=== PATIENT | female | born 1945 | race Caucasian/White ===

== ENCOUNTER → 2016-05-09 | Outpatient (CLI) | payer MEDICARE ==
[2016-04-17 17:01] VITALS: BP 152/69
[~2016-05-09] MED LIST: AMIT25TA PO; AMLO2.5T2 PO; AMOX50TA PO; ASPI81TA50 PO; ATOR40TA PO; BACL10TA PO; BISA5TAB4 PO; BUSP15TA PO; CARB1TAB22 PO; CARV12.5 PO; CHOL500016 PO; CLOP75TA PO; CYCL5TAB PO; DOCU-27 PO; DOCU100C5 PO; DULO60CA6 PO; ESOM40CA PO; ESTR1TAB15 PO; FERR250T PO; FOLI1TAB16 PO; LEVE100020 PO; LEVO125T5 PO; LIDO700A4 TP; LINA5TAB PO; LORA0.5P MC; LORA0.5T PO; LUBI24CA5 PO; MAGN400T3 PO; MELA1TAB13 PO; METF500T4 PO; MIRA50TA PO; MIRT15TA PO; MIRT30TA5 PO; NYST30PO9 TP; OMEG1CAP6 PO; OXYC-323 PO; OXYC20TA34 PO; OXYC30TA64 PO; POLY17PO5 PO; PRIM50TA PO; ROPI0.5T PO; TRAM50TA PO; TRIA0.25 PO; ZOLP10TA4 PO; ZOLP5TAB4 PO
--- NOTE | 2016-05-09 16:01 | KCIC ---
PROCEDURE MR of the left hip HISTORY Left lower back pain extending into the left hip and thigh after a recent fall. None none COMPARISON None TECHNIQUE Standard multiplanar sequences are obtained. FINDINGS No bone lesion, acute fracture or marrow edema. No evidence of femoral head osteonecrosis. No significant joint effusion. No evidence of a labrum tear. No advanced primary osteoarthritis Gluteus minimus tendon demonstrates mild tendinosis. Gluteus medius tendon, is intact. Mild chronic hamstring tendinosis. Iliopsoas tendon intact. No acute muscle or soft tissue pathology. Diagnostically limited large [id number] coronal survey sequence demonstrates no acute findings at the contralateral hip. IMPRESSION 1. Mild left gluteus minimus tendinosis. 2. No evidence of acute pathology. Electronically signed by: Markus Hope MD (May 09, 2016 15:59:40)
== END | disposition home or self-care (01) ==
LOC: KCIC MRI 13:33
PROVIDERS: ATTEND Family Medicine
DX: M25.552 Pain in left hip (principal)
CPT/HCPCS: 73721

== ENCOUNTER → 2016-05-30 | Outpatient (CLI) | payer MEDICARE ==
[2016-04-17 17:01] VITALS: BP 152/69
--- NOTE | 2016-05-31 15:06 | EKG ---
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
== END | disposition home or self-care (01) ==
LOC: EKG 09:48
PROVIDERS: ATTEND Internal Medicine Cardiovascular Disease
DX: R00.1 Bradycardia, unspecified (principal)
CPT/HCPCS: 93225; 93226

== ENCOUNTER 2016-06-02 11:28 | Inpatient (IN) | payer MEDICARE ==
[2016-06-02] VITALS (8 sets, daily range): BP systolic 82–125; BP diastolic 48–69
[~2016-06-02] VITALS: Ht 160 cm; Wt 94.4 kg
[2016-06-02 12:11] LABS: HEMATOCRIT 34.5 % (36.0-47.0); HEMOGLOBIN 11.3 g/dL (12.0-15.5); RED BLOOD COUNT 3.59 x10^6/uL (3.50-5.40); RED CELL DISTRIBUTION WIDTH 13.9 % (11.5-14.5); WHITE BLOOD COUNT 5.3 x10^3/uL (4.0-11.0)
[2016-06-02] MEDS ORDERED: VITA100C8 PO (12:37)
[2016-06-02] MEDS ORDERED: ASPI-482 PO (12:37)
[2016-06-02] MEDS ORDERED: LIDO700A4 TP (12:37)
[2016-06-02] MEDS ORDERED: RIVA1.5C4 PO (12:37)
[2016-06-02] MEDS ORDERED: DILT180C2 PO (12:37)
[2016-06-02] MEDS ORDERED: OXYC10TA PO ×2 (12:37)
[2016-06-02] MEDS ORDERED: CYCL5TAB PO (12:37)
[2016-06-02] MEDS ORDERED: PRIM50TA PO (12:37)
[2016-06-02 12:54] LABS: INR 1.1 (0.8-1.1); PROTHROMBIN TIME PATIENT 13.6 SEC (11.7-14.0)
[2016-06-02] MEDS ORDERED: CEFAZOLIN 2GM PREMIX 50 ML IV ONE ×2 (13:00→20:00)
[2016-06-02] MEDS ORDERED: BACITRACIN 50,000 UNIT in IV NORMAL SALINE 250ML 250 ML IRR ONE ×3 (13:00→16:45)
[2016-06-02] MEDS ORDERED: LIDOCAINE 2%/EPI 1:100,000 20 ML VIAL. ONE ×2 (14:01→15:52)
[2016-06-02] MEDS ORDERED: MIDAZOLAM HCL/PF 5 MG/5 ML VIAL ONE (14:13)
[2016-06-02] MEDS ORDERED: FENTANYL PF 250 MCG/5 ML VIAL. ONE (14:13)
--- NOTE | 2016-06-02 14:29 | PDOC ---
MODERATE SEDATION ASSESSMENT RISKS/ALTERNATIVES Risks/Alternatives Risks and alternatives of this type of sedation and procedure discussed with: RISK/ALTERNATIVES: Patient H & P ON CHART H & P H & P on chart and reviewed for co-morbid conditions and appropriate labs. H&P ON CHART: Yes STATUS PREG STATUS ASSESSED: Yes MEDS/ALLERGIES REVIEWED Meds/Allergies Reviewed Medications and Allergies including time and route of recently administered narcotics and sedatives. MEDS/ALLERGIES REVIEWED: Yes ASA RATING ASA RATING: II AIRWAY ASSESSMENT Airway Assessment Airway patency, oral function limitations, presence of caps, crowns, dentures, partials, and ability to extend neck assessed. AIRWAY ASSESSMENT: Yes MALLAMPATI SCORE MALLAMPATI SCORE: II PRE-SEDATION ASSESSMENT PRE-SEDATION ASSESSMENT: Yes ANDREW SKINNER MD Jun 02, 2016 14:29
[2016-06-02] MEDS ORDERED: MIDAZOLAM HCL/PF 5 MG/5 ML VIAL IV ONE (14:45)
[2016-06-02] MEDS ORDERED: FENTANYL PF 250 MCG/5 ML VIAL. IV ONE (14:45)
[2016-06-02] MEDS ORDERED: LIDOCAINE 2%/EPI 1:100,000 20 ML VIAL. IJ ONE (14:45)
[2016-06-02] MEDS ORDERED: IOHEXOL 300 MG/ML 100ML VIAL. ONE (14:59)
[2016-06-02] MEDS ORDERED: MIDAZOLAM HCL 2 MG/2 ML VIAL. ONE (16:00)
[2016-06-02] MEDS ORDERED: FENTANYL PF 100 MCG/2 ML VIAL. ONE (16:00)
[2016-06-02] MEDS ORDERED: IOHEXOL 300 MG/ML 100ML VIAL. IV ONE (16:30)
[2016-06-02] MEDS ORDERED: CONTRAST GIVEN MC PRN (16:45)
[2016-06-02] MEDS ORDERED: IV NORMAL SALINE 500ML BAG 500 ML IV ONE (16:45)
[2016-06-02] MEDS ORDERED: NO ANTICOAGULANT THERAPY. MC PRN (17:30)
[2016-06-02] MEDS ORDERED: ACETAMINOPHEN 325 MG TABLET. PO PRN (17:30)
[2016-06-02] MEDS ORDERED: ZOLPIDEM 5 MG TABLET. PO PRN (17:30)
[2016-06-02] MEDS: HYDROCODONE/APAP 5/325MG TABLET. PO PRN (18:29)
--- NOTE | 2016-06-02 18:41 | PDOC4 ---
PROCEDURE Procedure PROCEDURE NOTE This is being dictated in [facility] because after multiple attempts I could not sign on to [facility] to do the dictation there. Procedure: Insertion of dual-chamber permanent pacemaker Preoperative diagnosis: Bradycardia, near syncope, greater than 4 second pauses. Postoperative diagnosis: The same. Procedure: This patient is a 71-year-old lady that is having episodes of lightheadedness fatigue and near syncope. A 24-hour Holter was done that showed many pulses and several episodes of greater than 4 second pauses. The situation was discussed with the patient and it was decided to bring her in for insertion of a dual-chamber permanent pacemaker. After obtaining informed consent the patient was taken to the Step Down Specialist. The left shoulder area was prepped and draped in the usual fashion. The patient received antibiotics as per protocol. The area was infiltrated with Xylocaine to obtain topical anesthesia and then the skin was incised. With blunt dissection I then worked my way down to the fascia and then a pocket was created. Multiple attempts at entering the left subclavian vein were then done and not successful therefore a venogram was done. 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 In view of that I decided to go to the other side. The previously created pocket was closed with 3 layers of running sutures and then the skin was approximated with Dermabond. After the Dermabond was dry a dressing was applied to the left shoulder. After the right shoulder was prepped and draped in the usual fashion the area was infiltrated with Xylocaine to obtain topical anesthesia. The skin was incised and with blunt dissection I then worked my way down to the fascia and then created a pocket. Using Seldinger technique we entered the right subclavian vein and a 2 guidewire approach was used. The peel-away sheath was then advanced over one of the guidewires. Through that sheath a [employer]. Chris pacing lead was advanced and once I was satisfied with the position within the right ventricle and the active-fixation device had been deployed we checked the sensing as well as capture and found the thresholds to be acceptable. The peel-away sheath was then removed. Over the second wire another peel-away sheath was advanced. Through that a second [employer] Chris pacing lead was advanced all the way to the right atrium and then with a J stylette he was position once I was satisfied with its positioning and the active-fixation device had been deployed we checked sensing and pacing thresholds and found him to be acceptable. After the peel-away sheath was removed both leads were sutured in place. A pacer generator, [employer]. Chris, was then connected after verifying the atrial and the RV lead numbers. The previously created pocket was irrigated with antibiotic solution and then the pacemaker generator was placed in the pocket. The pocket was then closed with 3 layers of running sutures. The skin edges were approximated with Dermabond. After the Dermabond was dry a dressing was applied to the area. The patient was then transferred to a room in satisfactory condition and the pacemaker was functioning normally. ANDREW SKINNER MD Jun 02, 2016 18:41
--- NOTE | 2016-06-02 18:47 | RAD ---
PROCEDURE Portable chest radiograph 06/02/2016 HISTORY Post pacemaker placement. FINDINGS An AP portable supine digital radiograph of the chest was obtained. Comparison study is dated 04/15/2016. A right-sided pacemaker has been placed. Leads extend to overlie the right atrium and right ventricle of the heart. The cardiac silhouette is normal in size. The thoracic aorta is mildly tortuous. Atherosclerotic calcification of the thoracic aorta is seen. No pneumothorax is noted. Elevation of the right hemidiaphragm is unchanged. Left basilar subsegmental atelectasis is seen. No pleural effusion is noted. No area of consolidation is seen. The degenerative changes are seen involving the thoracic spine and both shoulders. IMPRESSION Interval placement of a right-sided pacemaker. No pneumothorax is seen. Electronically signed by: Chicho Alba MD (Jun 02, 2016 18:45:22)
[2016-06-02] MEDS ORDERED: POLYETHYLENE GLYCOL 3350 17 GM PACKET. PO PRN (19:45)
[2016-06-02] MEDS ORDERED: AMOXAPINE PO SCH (21:00)
[2016-06-02] MEDS: BISACODYL 5 MG TABLET.DR. PO SCH (21:00)
[2016-06-02] MEDS ORDERED: LEVOTHYROXINE 125 MCG TABLET PO SCH (21:00)
[2016-06-02] MEDS: PRIMIDONE 50 MG TABLET PO SCH (21:55)
[2016-06-02] MEDS: DOCUSATE SODIUM 100 MG CAPSULE PO SCH (21:55)
[2016-06-02] MEDS: LEVETIRACETAM 500 MG TABLET PO SCH (21:56)
[2016-06-02] MEDS: busPIRone 5 MG TABLET. PO SCH (21:56)
[2016-06-02] MEDS: CARBIDOPA/LEVODOPA 25/100MG TABLET PO SCH (21:56)
[2016-06-02] MEDS: MAGNESIUM OXIDE 400 MG TABLET PO SCH (21:56)
[2016-06-02] MEDS: rOPINIRole 0.25 MG TABLET. PO SCH (21:57)
[2016-06-02] MEDS: RIVASTIGMINE 1.5 MG CAPSULE. PO SCH (21:58)
[2016-06-03] MEDS: HYDROCODONE/APAP 5/325MG TABLET. PO PRN ×2 (02:46→11:00)
[2016-06-03 03:31] VITALS: BP 141/64
--- NOTE | 2016-06-03 06:23 | EKG ---
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
[2016-06-03] MEDS ORDERED: LEVOTHYROXINE 150 MCG TABLET PO SCH (07:00)
[2016-06-03] MEDS ORDERED: PANTOPRAZOLE 40 MG TABLET. PO SCH (07:30)
[2016-06-03 07:37] VITALS: BP 128/60
[2016-06-03] MEDS ORDERED: FERROUS SULFATE 142 MG PO SCH (08:00)
[2016-06-03] MEDS ORDERED: CLOPIDOGREL BISULFATE 75 MG TABLET PO SCH (08:00)
--- NOTE | 2016-06-03 08:41 | RAD ---
EXAM: Chest, 2 views. HISTORY: Pacemaker placement. COMPARISON: 06/02/2016. FINDINGS: Frontal and lateral views of the chest are obtained. There is a right cardiac pacemaker with leads overlying the right atrium and ventricle. There is no pneumothorax. There is left lower lobe atelectasis or infiltrate and a small left pleural effusion or pleural thickening. The heart is normal in size. IMPRESSION: 1. Dual lead right cardiac pacemaker. 2. Left lower lobe atelectasis or infiltrate and suspected small left pleural effusion or pleural thickening, stable in appearance.
[2016-06-03] MEDS: LEVETIRACETAM 500 MG TABLET PO SCH (08:52)
[2016-06-03] MEDS: RIVASTIGMINE 1.5 MG CAPSULE. PO SCH (08:52)
[2016-06-03] MEDS: CARBIDOPA/LEVODOPA 25/100MG TABLET PO SCH ×2 (08:52→13:47)
[2016-06-03] MEDS: BISACODYL 5 MG TABLET.DR. PO SCH (08:52)
[2016-06-03] MEDS: DOCUSATE SODIUM 100 MG CAPSULE PO SCH (08:52)
[2016-06-03] MEDS: busPIRone 5 MG TABLET. PO SCH (08:53)
[2016-06-03] MEDS: rOPINIRole 0.25 MG TABLET. PO SCH ×2 (08:53→14:00)
[2016-06-03] MEDS: MAGNESIUM OXIDE 400 MG TABLET PO SCH (08:53)
[2016-06-03] MEDS ORDERED: MIRTAZAPINE 15 MG TABLET PO SCH (09:00)
[2016-06-03] MEDS ORDERED: ASPIRIN ENTERIC COATED 81 MG TABLET.DR. PO SCH (09:00)
[2016-06-03] MEDS ORDERED: VITAMIN E 200 UNIT CAPSULE. PO SCH (09:00)
[2016-06-03] MEDS ORDERED: CHOLECALCIFEROL (VITAMIN D3) 5,000 UNIT CAPSULE PO SCH (09:00)
[2016-06-03] MEDS ORDERED: DULOXETINE HCL 30 MG CAPSULE.DR. PO SCH (09:00)
[2016-06-03] MEDS: PRIMIDONE 50 MG TABLET PO SCH ×2 (10:59→13:47)
[2016-06-03 11:52] VITALS: BP 151/78
--- NOTE | 2016-06-03 14:22 | CARD ---
APPROVED REPORT [facility] PROCEDURE Patient Name: Codi Knowles Number: [id number] Date of : 1945Patient Status: Admitted Inpatient Attending Doctor: Oskar Bowie [facility] Number: [id number] PROCEDURE NOTE PROCEDURE Procedure PROCEDURE NOTE This is being dictated in [facility] because after multiple attempts I could not sign on to [facility] to do the dictation there. Procedure: Insertion of dual-chamber permanent pacemaker Preoperative diagnosis: Bradycardia, near syncope, greater than 4 second pauses. Postoperative diagnosis: The same. Procedure: This patient is a 71-year-old lady that is having episodes of lightheadedness fatigue and near syncop e. A 24-hour Holter was done that showed many pulses and several episodes of greater than 4 second pa uses. The situation was discussed with the patient and it was decided to bring her in for insertion of a du al-chamber permanent pacemaker. After obtaining informed consent the patient was taken to the Geotechnical Field Technician. The left shoulder area was prepped and draped in the usual fashion. The patient received antibiotics as per protocol. The area was infiltrated with Xylocaine to obtain topical anesthesia and then the skin was incised. With blunt dissection I then worked my way down to the fascia and then a pocket was created. Multiple attempts at entering the left subclavian vein were then done and not successful therefore a venogram was done. 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 In view of that I decided to go to the other side. The previously created pocket was closed with 3 layers of running sutures and then the skin was appro ximated with Dermabond. After the Dermabond was dry a dressing was applied to the left shoulder. After the right shoulder was prepped and draped in the usual fashion the area was infiltrated with Xy locaine to obtain topical anesthesia. The skin was incised and with blunt dissection I then worked my way down to the fascia and then created a pocket. Using Seldinger technique we entered the right subclavian vein and a 2 guidewire approach was used. The peel-away sheath was then advanced over one of the guidewires. Through that sheath a [employer]. Chris pac ing lead was advanced and once I was satisfied with the position within the right ventricle and the active-fixation device had been deployed we checked the sensing as well as capture and found the thre sholds to be acceptable. The peel-away sheath was then removed. Over the second wire another peel-away sheath was advanced. Through that a second [employer] Chris pacing lead was advanced all the way to the right atrium and then with a J stylette he was position once I was satisfied with its positioning and the active-fixation devic e had been deployed we checked sensing and pacing thresholds and found him to be acceptable. After the peel-away sheath was removed both leads were sutured in place. A pacer generator, [employer]. Chris, was then connected after verifying the atrial and the RV lead numbers. The previously created pocket was irrigated with antibiotic solution and then the pacemaker generator was placed in the pocket. The pocket was then closed with 3 layers of running sutures. The skin edges were approximated with Dermabond. After the Dermabond was dry a dressing was applied to the area. The patient was then transferred to a room in satisfactory condition and the pacemaker was functionin g normally. OSKAR BOWIE 2016 18:41
--- NOTE | 2016-06-03 15:31 | PDOC3 ---
Discharge Summary* Date of Admission: Jun 02, 2016 Date of Discharge: Jun 03, 2016 Admitting Diagnosis Bradycardia Near syncope Problems Medical Problems: (1) Pacemaker Status: Acute Final Diagnosis Bradycardia Near syncope Pulses greater than 4 seconds Insertion of permanent pacemaker Problems Medical Problems: (1) Pacemaker Status: Acute Procedures Insertion of dual chamber permanent pacemaker Brief Hospital Course This patient is a very pleasant 71-year-old lady that has been having episodes of near syncope and bradycardia. The patient had a workup done as an outpatient which included a 24-hour Holter and this showed that she was having frequent pauses of up to 4-1/2 seconds. The situation options and risks were discussed with the patient and he was decided to bring her in for insertion of a permanent dual-chamber pacemaker. 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 Chris pacemaker via the right subclavian. The patient tolerated the procedure rather well. Today she has some surgical pain but other than that has no complaints and the pacemaker is working normally. The chest x-ray yesterday and today did not show any pneumothorax. The patient is stable and he was decided to discharge her home today. The situation, diet, activity, medications, follow-up and care of the pacemaker was discussed with the patient and she agrees to go home today. CONDITION AT DISCHARGE: Improved, Stable Scheduled Amoxapine (Amoxapine) 200 MG PO HS (Reported) Aspirin (Aspir 81) 1 TAB PO DAILY (Reported) Bisacodyl (Bisacodyl) 5 MG PO BID (Reported) Buspirone Hcl (Buspirone Hcl) 15 MG PO BID (Reported) Carbidopa/Levodopa (Carbidopa-Levodopa 25-100 Tab) 1 EACH PO TID (Reported) Carvedilol (Coreg) 1 TAB PO BID (Reported) Cholecalciferol (Vitamin D3) (Vitamin D3) 5,000 UNIT PO DAILY (Reported) Clopidogrel Bisulfate (Clopidogrel) 75 MG PO DAILYWBKFT Cyclobenzaprine Hcl (Cyclobenzaprine Hcl) 5 MG PO HS (Reported) Cyclobenzaprine Hcl (Cyclobenzaprine Hcl) 2 TAB PO DAILY08 (Reported) Diltiazem Hcl (Cardizem Cd) 1 CAP PO DAILY (Reported) Docusate Sodium (Colace) 1 CAP PO BID (Reported) Duloxetine Hcl (Cymbalta) 1 CAP PO DAILY (Reported) Esomeprazole Magnesium (Nexium Capsule) 40 MG PO DAILY (Reported) Ferrous Sulfate (Slow Release Iron) 250 MG PO DAILY (Reported) Levetiracetam (Keppra) 1 TAB PO BID (Reported) Levothyroxine Sodium (Levothyroxine Sodium) 150 MCG PO BID (Reported) Lidocaine (Lidoderm) 1 PATCH TP HS (Reported) Lorazepam (Lorazepam) 0.5 MG PO BID (Reported) Magnesium Oxide (Magnesium Oxide) 400 MG PO BID (Reported) Melatonin/Pyridoxine (Melatonin 3 Mg Tablet) 1 EACH PO HS (Reported) Metformin Hcl (Metformin Hcl) 1 TAB PO BID (Reported) Mirtazapine (Mirtazapine) 30 MG PO DAILY (Reported) Oxycodone Hcl (Oxycodone Hcl) 1 TAB PO DAILY08 (Reported) Oxycodone Hcl (Oxycodone Hcl) 2 TAB PO HS (Reported) Primidone (Primidone) 100 MG PO TID (Reported) Rivastigmine Tartrate (Rivastigmine) 1.5 MG PO BID (Reported) Ropinirole Hcl (Requip) 1.5 TAB PO TID (Reported) Vitamin E (Dl,Tocopheryl Acet) (Vitamin E) 100 UNIT PO DAILY (Reported) Zolpidem Tartrate (Zolpidem Tartrate) 1 TAB PO QHS (Reported) Scheduled PRN Polyethylene Glycol 3350 (Miralax) 1 PACKET PO DAILY PRN PRN CONSTIPATION ( Reported) Miscellaneous Medications Mirabegron (Myrbetriq) 50 MG PO (Reported) Triazolam (Halcion) 0.25 MG PO (Reported) Discontinued Medications Amlodipine Besylate (Norvasc) 1 TAB PO DAILY (Reported) Atorvastatin Calcium (Lipitor) 1 TAB PO QHS (Reported) Oxycodone/Apap 5-325 (Percocet 5-325 Mg Tablet) 1-2 TAB PO Q4-6HRS (Reported) Time Spent Total time spent with patient [] minutes for coordination of care, counseling, and education. ANDREW SKINNER MD Jun 03, 2016 15:31
== END 2016-06-03 15:30 | disposition home or self-care (01) | DRG 243 ==
LOC: CCL 11:28 → 2 SOUTH 13:40
PROVIDERS: ADMIT Internal Medicine Cardiovascular Disease; ATTEND Internal Medicine Cardiovascular Disease
PROC: 0JH606Z Insertion of Pacemaker, Dual Chamber into Chest Subcutaneous Tissue and Fascia, Open Approach (ICD-10-PCS; principal; 2016-06-02)
PROC: 02H63JZ Insertion of Pacemaker Lead into Right Atrium, Percutaneous Approach (ICD-10-PCS; 2016-06-02)
PROC: 02HK3JZ Insertion of Pacemaker Lead into Right Ventricle, Percutaneous Approach (ICD-10-PCS; 2016-06-02)
DX: R00.1 Bradycardia, unspecified (principal); I82.B12 Acute embolism and thrombosis of left subclavian vein; Z79.899 Other long term (current) drug therapy
CPT/HCPCS: 33208; 36415; 71010; 71020; 82947; 85027; 85610; 93005; C1785; C1892; C1898; J0690; J2250; J3010; J3490; J7040; J7050; Q9967; J7030

== ENCOUNTER → 2016-09-19 | Outpatient (CLI) | payer MEDICARE ==
[2016-08-17 15:00] VITALS: BP 148/69
[~2016-09-19] MED LIST changes: +ASPI-482 PO; +CYCL10TA2 PO; +DILT180C2 PO; +DONE10TA7 PO; +DULO60CA44 PO; -LINA5TAB PO; +LINA5TAB4 PO; +LORA1TAB PO; -MIRT30TA5 PO; +MIRT30TA6 PO; +NYST15PO9 TP; -NYST30PO9 TP; +OXYC10TA PO; +POLY17PO29 PO; -POLY17PO5 PO; +RIVA1.5C4 PO; +SLOW RELEASE I142 MG PO; +VITA100C8 PO; -ZOLP5TAB4 PO; +ZOLP5TAB5 PO
--- NOTE | 2016-09-20 18:29 | SLEEP ---
DATE OF STUDY: 09/19/2016 ATTENDING PHYSICIAN: Dr. Sheets. REFERRING PHYSICIAN: Dr. Hooks. The patient is a 71-year-old who weighs 200 pounds with a BMI of 36. The patient's [place] score was 8. Sleep study was performed at [facility]. This was a split night study. During the night study, the patient spent 480 minutes in bed and slept for 455 minutes with a sleep efficiency of 95%. Sleep latency was 2 minutes with absent REM sleep. Overall, sleep architecture showed reduced stage I sleep, increased stage II sleep, increased slow wave, and absent REM sleep. During the initial diagnostic portion of the study, the patient slept for 408 minutes. During this time, there were 12 obstructive apneas, 14 mixed apneas, and no central apneas. There were 15 hypopneas. The patient's apnea hypopnea index was 6 per hour, supine index 6 per hour, and REM sleep was not observed. Review of nocturnal oximetry study revealed a mean oxygen saturation of 92% with the lowest of 83%. An 11% of time oxygen saturation remained between 80% and 89%. EKG monitoring revealed normal sinus rhythm. Average heart rate was 84 beats per minute. No sustained arrhythmias were observed. PLMS were seen at index of 1 per hour and none caused EEG arousals. Even though the patient's sleep apnea was mild, network control technician did start the patient on CPAP, and the pressure was increased to eliminate apneas and hypopneas. Therapeutic CPAP pressure was not achieved. At final pressure of 7 cm of water, the patient's AHI was 13 per hour. REM sleep was not seen. Supine sleep was observed throughout. The patient used a small-sized nasal mask. IMPRESSION: 1. Mild sleep apnea-hypopnea syndrome with an apnea-hypopnea index of 6 per hour. 2. No clinically significant periodic limb movements during sleep. 3. Mild nocturnal hypoxia secondary to obstructive sleep apnea. RECOMMENDATIONS: 1. Even though CPAP was initiated on the night of the study, the patient has mild sleep apnea and can be tried with weight loss first. 2. If weight loss does not resolve the patient's symptoms, then the patient's treatment options would include use of an oral appliance as recommended by the dentist or placing the patient on auto CPAP at a minimum pressure of 8 cm of water and a maximum pressure of 12 cm of water. 3. If the patient does proceed with CPAP use every night, then she should be followed up in 4-6 weeks to assess compliance with CPAP and to document clinical improvement. 4. Weight loss is strongly advised. 5. Avoid APICULTURIST depressants. 6. Caution regarding driving until symptoms of sleep apnea resolve with the above recommendations. EJ COLON MD DR: JAXON/baldomero JOB#: [id number] / [id number] ELIZABETH Beck MD
== END | disposition home or self-care (01) ==
LOC: RT 18:35
PROVIDERS: ATTEND Internal Medicine Pulmonary Disease
DX: G47.33 Obstructive sleep apnea (adult) (pediatric) (principal)
CPT/HCPCS: 95810

== ENCOUNTER 2016-11-14 18:52 | Observation (INO) | payer MEDICARE ==
[~2016-11-14] VITALS: Ht 160 cm; Wt 90.7 kg
[~2016-11-14 18:52] MED LIST changes: +DOCU-109 PO; -DOCU-27 PO; +DOCU100C28 PO; -DOCU100C5 PO; -LUBI24CA5 PO; +LUBI24CA7 PO
[2016-11-14] MEDS ORDERED: IV NORMAL SALINE 500ML BAG 500 ML IV ONE (19:30)
[2016-11-14 19:54] LABS: BASO % 1 % (0-3); EOS % 2 % (0-3); HEMATOCRIT 32.1 % (36.0-47.0); HEMOGLOBIN 10.8 g/dL (12.0-15.5); LYMPH # 2.4 x10^3/uL (1.0-4.8); LYMPH % 34 % (24-48); MEAN CORPUSCULAR HEMOGLOBIN 32 pg (25-35); MEAN CORPUSCULAR HGB CONC 34 g/dL (31-37); MEAN CORPUSCULAR VOLUME 95 fL (79-100); MONO % 7 % (0-9); NEUT % 57 % (31-73); PLATELET COUNT 263 x10^3/uL (140-400); RED BLOOD COUNT 3.39 x10^6/uL (3.50-5.40); RED CELL DISTRIBUTION WIDTH 14.9 % (11.5-14.5); WHITE BLOOD COUNT 7.1 x10^3/uL (4.0-11.0)
[2016-11-14 20:12] LABS: BILIRUBIN,URINE NEGATIVE (NEG); GLUCOSE,URINE NEGATIVE (NEG); NITRITE,URINE NEGATIVE (NEG); PH,URINE 5.5; PROTEIN,URINE NEGATIVE (NEG-TRACE); UROBILINOGEN,URINE 0.2 mg/dL (0.2 mg/dL)
[2016-11-14 20:21] LABS: BACTERIA,URINE 0 /HPF (0-FEW); RBC,URINE 0 /HPF (0-2); SQUAMOUS EPITHELIAL CELL,UR FEW /LPF; WBC,URINE 0 /HPF (0-4)
[2016-11-14 20:31] LABS: CALCIUM 8.4 mg/dL (8.5-10.1); CREATININE 0.9 mg/dL (0.6-1.0); GFR 61.9; POTASSIUM 4.5 mmol/L (3.5-5.1)
[2016-11-14 20:39] LABS: ALBUMIN 3.2 g/dL (3.4-5.0); ALBUMIN/GLOBULIN RATIO 1.1 (1.0-1.7); TOTAL BILIRUBIN 0.2 mg/dL (0.2-1.0); TOTAL PROTEIN 6.1 g/dL (6.4-8.2)
--- NOTE | 2016-11-14 21:38 | PHYS DOC ---
Past Medical History Past Medical History: A-Fib, Anxiety, COPD, CVA, Depression, Diabetes-Type II, GERD, Glaucoma, High Cholesterol, Hypertension, Hypothyroid, [place], Seizure, Other Additional Past Medical Histor: factor 5 clotting,ABD HERNIA,OVERACTIVE BLADDER ,TREMORS,BACK PAIN,parkenson Past Surgical History: , Hysterectomy, Knee Replacement, Tonsillectomy , Other Additional Past Surgical Histo: COLON RESECTION,SHOULDER SURG, NOSE SURG,BACK, CATARACT, CARDIAC CATH Alcohol Use: None Drug Use: None Adult General Chief Complaint Chief Complaint: HEADACHE HPI HPI 71-year-old female with multiple chronic medical problems including anxiety and depression atrial fibrillation/flutter COPD prior CVA and diabetes type 2 and now presents to the emergency department after a concerning episode at home. Daughter states she was with her mom when her mom became suddenly short of breath and perceived palpitations. She became sweaty during this episode and looked ill appearing. It spontaneously resolved and she now feels better. She was brought to the emergency department for evaluation. Denies any chest Pain during episode or now. No productive cough or fever. Denies pleuritic pain Review of Systems Review of Systems Constitutional: Denies fever or chills [] Eyes: Denies change in visual acuity, redness, or eye pain [] HENT: Denies nasal congestion or sore throat [] Respiratory: Denies cough or shortness of breath [] Cardiovascular: No additional information not addressed in HPI [] GI: Denies abdominal pain, nausea, vomiting, bloody stools or diarrhea [] : Denies dysuria or hematuria [] Musculoskeletal: Denies back pain or joint pain [] Integument: Denies rash or skin lesions [] Neurologic: Denies headache, focal weakness or sensory changes [] Endocrine: Denies polyuria or polydipsia [] Current Medications Current Medications Current Medications Medications (Trade) Dose Ordered Sig/Carlene Start Time Stop Time Status Last Admin Dose Admin Sodium Chloride 500 ml @ 500 mls/hr 1X ONCE 11/14/16 19:30 11/14/16 20:29 DC 11/14/16 20:00 500 MLS/HR Allergies Allergies Allergies Coded Allergies Type Severity Reaction Last Updated Verified Sulfa (Sulfonamide Antibiotics) Allergy Intermediate hives 12/28/15 Yes dexamethasone Allergy Intermediate 12/28/15 Yes neomycin Allergy Intermediate 8/23/16 Yes polymyxin B Allergy Intermediate 12/28/15 Yes Physical Exam Physical Exam Release female chronically weak-appearing no acute distress alert and communicative Constitutional: Well developed, well nourished, no acute distress, non-toxic appearance. [] HENT: Normocephalic, atraumatic, bilateral external ears normal, oropharynx moist, no oral exudates, nose normal. [] Eyes: PERRLA, EOMI, conjunctiva normal, no discharge. [] Neck: Normal range of motion, no tenderness, supple, no stridor. [] Cardiovascular:Heart rate regular rhythm, no murmur [] Lungs & Thorax: Bilateral breath sounds clear to auscultation [] Abdomen: Bowel sounds normal, soft, no tenderness, no masses, no pulsatile masses. [] Skin: Warm, dry, no erythema, no rash. [] Back: No tenderness, no CVA tenderness. [] Extremities: No tenderness, no cyanosis, no clubbing, ROM intact, no edema. [] Neurologic: Alert and oriented X 3, normal motor function, normal sensory function, no focal deficits noted. [] Psychologic: Affect normal, judgement normal, mood normal. [] Current Patient Data Vital Signs Vital Signs Date Time Temp Pulse Resp B/P (MAP) Pulse Ox O2 Delivery O2 Flow Rate FiO2 11/14/16 21:30 95 95 Room Air 11/14/16 19:30 166/74 (104) 11/14/16 19:00 98.1 18 98.1 Lab Values Laboratory Tests Test 11/14/16 19:35 11/14/16 19:48 11/14/16 20:05 White Blood Count 7.1 x10^3/uL (4.0-11.0) Red Blood Count 3.39 x10^6/uL (3.50-5.40) L Hemoglobin 10.8 g/dL (12.0-15.5) L Hematocrit 32.1 % (36.0-47.0) L Mean Corpuscular Volume 95 fL (79-100) Mean Corpuscular Hemoglobin 32 pg (25-35) Mean Corpuscular Hemoglobin Concent 34 g/dL (31-37) Red Cell Distribution Width 14.9 % (11.5-14.5) H Platelet Count 263 x10^3/uL (140-400) Neutrophils (%) (Auto) 57 % (31-73) Lymphocytes (%) (Auto) 34 % (24-48) Monocytes (%) (Auto) 7 % (0-9) Eosinophils (%) (Auto) 2 % (0-3) Basophils (%) (Auto) 1 % (0-3) Neutrophils # (Auto) 4.0 x10^3uL (1.8-7.7) Lymphocytes # (Auto) 2.4 x10^3/uL (1.0-4.8) Monocytes # (Auto) 0.5 x10^3/uL (0.0-1.1) Eosinophils # (Auto) 0.1 x10^3/uL (0.0-0.7) Basophils # (Auto) 0.0 x10^3/uL (0.0-0.2) Sodium Level 137 mmol/L (136-145) Potassium Level 4.5 mmol/L (3.5-5.1) Chloride Level 100 mmol/L (98-107) Carbon Dioxide Level 28 mmol/L (21-32) Anion Gap 9 (6-14) Blood Urea Nitrogen 18 mg/dL (7-20) Creatinine 0.9 mg/dL (0.6-1.0) Estimated GFR (Cockcroft-Gault) 61.9 BUN/Creatinine Ratio 20 (6-20) Glucose Level 104 mg/dL (70-99) H Calcium Level 8.4 mg/dL (8.5-10.1) L Total Bilirubin 0.2 mg/dL (0.2-1.0) Aspartate Amino Transferase (AST) 20 U/L (15-37) Alanine Aminotransferase (ALT) 21 U/L (14-59) Alkaline Phosphatase 149 U/L (46-116) H Troponin I Quantitative < 0.017 ng/mL (0.000-0.055) Total Protein 6.1 g/dL (6.4-8.2) L Albumin 3.2 g/dL (3.4-5.0) L Albumin/Globulin Ratio 1.1 (1.0-1.7) Thyroid Stimulating Hormone (TSH) 1.374 uIU/mL (0.358-3.74) Glucose (Fingerstick) 112 mg/dL (70-99) H Urine Collection Type Unknown Urine Color Yellow Urine Clarity Clear Urine pH 5.5 Urine Specific [place] <=1.005 Urine Protein Negative mg/dL (NEG-TRACE) Urine Glucose (UA) Negative mg/dL (NEG) Urine Ketones (Stick) Negative mg/dL (NEG) Urine Blood Negative (NEG) Urine Nitrite Negative (NEG) Urine Bilirubin Negative (NEG) Urine Urobilinogen Dipstick 0.2 mg/dL (0.2 mg/dL) Urine Leukocyte Esterase Negative (NEG) Urine RBC 0 /HPF (0-2) Urine WBC 0 /HPF (0-4) Urine Squamous Epithelial Cells Few /LPF Urine Bacteria 0 /HPF (0-FEW) Laboratory Tests 11/14/16 19:35 Laboratory Tests 11/14/16 19:35 EKG EKG [] Radiology/Procedures Radiology/Procedures [] Course & Med Decision Making Course & Med Decision Making Pertinent Labs and Imaging studies reviewed. (See chart for details) Just prior to my exam nurse's noted some disorganized activity on the monitor. This was recorded and printed out. The tracing represented high amplitude irregular sawtooth pattern in a crescendo decrescendo disorganized distribution. It was not consistent with V. tach nor V. fib nor torsades 2. and the patient was awake and asymptomatic during the entire episode making it clear that this was artifactual. Ronaldo evaluations after patient had no evidence of ventricular instability. Signs and symptoms seem consistent with possible arrhythmia versus cardiac event of another kind. This showed no diaphoresis dyspnea or palpitations in the ED at any time. Case discussed with her doctor regarding admission and full cardiac workup. She is stable on multiple exams. [] Dragon Disclaimer Dragon Disclaimer This electronic medical record was generated, in whole or in part, using a voice recognition dictation system. Departure Departure Impression: Primary Impression: Acute dyspnea Additional Impression: Palpitations Disposition: ADMITTED INPATIENT Admitting Physician: Oskar Bowie Condition: STABLE Referrals: DB BAILEY MD (PCP) Problem Qualifiers PHYLLIS JUSTICE MD Nov 14, 2016 21:38
[2016-11-14] MEDS ORDERED: IV NORMAL SALINE 1000ML BAG 1,000 ML IV SCH (22:00)
[2016-11-14 23:35] VITALS: BP 189/75
[2016-11-15] VITALS (8 sets, daily range): BP systolic 111–188; BP diastolic 60–92
[2016-11-15] MEDS ORDERED: ROPI1TAB2 PO (00:54)
[2016-11-15] MEDS ORDERED: MIRA50TA PO (00:54)
[2016-11-15] MEDS: LIDOCAINE (700MG/PATCH) PATCH. TP SCH ×2 (04:00→20:39)
[2016-11-15] MEDS: ZOLPIDEM 5 MG TABLET. PO SCH ×2 (04:00→20:38)
[2016-11-15] MEDS: oxyCODONE ER 10 MG TAB.ER.12H PO SCH ×3 (04:10→20:38)
[2016-11-15] MEDS: MIRTAZAPINE 15 MG TABLET PO SCH ×2 (04:10→20:38)
[2016-11-15] MEDS: levETIRAcetam 500 MG TABLET PO SCH ×3 (04:11→20:38)
[2016-11-15] MEDS: LORazepam 0.5 MG TABLET PO SCH ×3 (04:11→20:37)
[2016-11-15] MEDS: CYCLOBENZAPRINE 10 MG TABLET. PO SCH ×3 (04:11→20:38)
[2016-11-15] MEDS: busPIRone 10 MG TABLET. PO SCH ×3 (04:11→20:39)
[2016-11-15] MEDS: rOPINIRole 1 MG TABLET. PO SCH ×4 (04:11→20:38)
[2016-11-15] MEDS: PRIMIDONE 50 MG TABLET PO SCH ×4 (04:11→20:37)
[2016-11-15] MEDS: CARBIDOPA/LEVODOPA 25/100MG TABLET PO SCH ×4 (04:11→20:38)
--- NOTE | 2016-11-15 06:10 | EKG ---
[facility] [address] [place] [address] Test Date: 2016-11-14 Test Time: 19:10:10 Pat Name: LAYLA ROSSI Department: Room: [facility] Gender: F Artist'S Representative: : [id number] Requested By: PHYLLIS JUSTICE Order Number: [id number] Reading MD: Amanda Rao Measurements Intervals [place] Rate: 75 P: 63 [place]: 158 QRS: -7 QRSD: 86 T: -3 QT: 390 QTc: 438 Interpretive Statements SINUS RHYTHM ATRIAL PREMATURE COMPLEX(ES) LEFTWARD AXIS QRS(T) CONTOUR ABNORMALITY CONSIDER INFERIOR INFARCT POSSIBLY ABNORMAL ECG Electronically Signed On 11-19-2016 15:06:10 CDT by Amanda Rao
--- NOTE | 2016-11-15 06:16 | ACF ---
Admission Forms Criteria HEADACHES Clinical Indications for Admission to Inpatient Care (Place 'X' for any and all applicable criteria): Admission is indicated for ANY ONE of the following(1)(2)(3)(4): [X]I. Inpatient admission required rather than observational care (Also use Headaches: Observation Care as appropriate) because of ANY ONE of the following: [ ]a) Severe pain requiring acute inpatient management [ ]b) Altered mental status that is severe or persistent [ ]c) Vomiting or dehydration that is severe or persistent [ ]d) New-onset focal neurologic deficit that is severe or persistent [X]e) Hypertension requiring inpatient treatment [ ]f) Severe (new) neurologic findings requiring inpatient care as indicated by ANY ONE of following(9)(10): [ ]1) Papilledema [ ]2) Cerebral edema [ ]3) Mass effect on CT scan [ ]4) Cerebral bleeding, ischemia, or vasospasm(16) [ ]5) Hydrocephalus(17) [ ]6) Uncontrolled seizures [ ]g) IV infusion of anticoagulation, platelet inhibitors vasoactive, or antiarrhythmic medication. [ ]h) Cerebral bleeding, hydrocephalus, or vasospasm monitoring (16) [ ]i) Increased intracranial pressure or cerebral edema monitoring (17) [ ]j) Other condition, treatment or monitoring requiring inpatient admission [ ]II. Unruptured but threatening aneurysm or vascular malformation [ ]III. Venous sinus thrombosis [ ]IV. Increased intracranial pressure [ ]V. Cerebral spinal fluid leak with decreased intracranial pressure [ ]. Medication-overuse headache that has failed all outpatient management options [ ]VII. Vasculitis (eg, giant cell (temporal) arteritis, central nervous system vasculitis) requiring IV corticosteroids, IV antithrombotic therapy, or inpatient monitoring (eg, visual symptoms or findings, other ischemic manifestations)[A](10)(11) Extended stay beyond goal length of stay may be needed for (27): [ ]a) Intractable migraine [ ]b) Subarachnoid or intracranial hemorrhage [ ]c) Malignant hypertension [ ]d) Detoxification from drug withdrawal in medication-overuse headache (29) The original [facility] content created by Claire Estrada has been revised. The portions of the content which have been revised are identified through the use of italic text or in bold, and Claire Estrada has neither reviewed nor approved the modified material.All other unmodified content is copyright [facility]. Please see references footnoted in the original [facility] edition 2016 Admission Criteria Met?: Yes SUSANNA ALONSO Nov 15, 2016 06:16
--- NOTE | 2016-11-15 08:27 | RAD ---
Portable chest, 11/14/2016: History: Headache Comparison is made to a study from 06/03/2016. A right-sided transvenous pacemaker remains in place with 2 leads extending into the right heart. The left ventricle is mildly prominent. The pulmonary vascularity is normal. The depth of inspiration is suboptimal. No acute infiltrates are seen. There is no evidence of pleural fluid. IMPRESSION: No acute cardiopulmonary abnormality is detected.
[2016-11-15] MEDS: DOCUSATE SODIUM 100 MG CAPSULE. PO SCH ×2 (09:00→20:38)
[2016-11-15] MEDS: MAGNESIUM OXIDE 400 MG TABLET PO SCH ×2 (09:00→20:38)
[2016-11-15] MEDS: metFORMIN 500 MG TABLET PO SCH ×2 (09:01→17:00)
[2016-11-15] MEDS: DONEPEZIL HCL 10 MG TABLET. PO SCH (09:01)
[2016-11-15] MEDS: CARVEDILOL 12.5 MG TABLET. PO SCH ×2 (09:01→18:40)
[2016-11-15] MEDS: ASPIRIN ENTERIC COATED 81 MG TABLET.DR. PO SCH (09:01)
[2016-11-15] MEDS: CLOPIDOGREL BISULFATE 75 MG TABLET PO SCH (09:01)
[2016-11-15] MEDS: CHOLECALCIFEROL (VITAMIN D3) 5,000 UNIT CAPSULE PO SCH (09:02)
[2016-11-15] MEDS: PANTOPRAZOLE 40 MG TABLET.DR. PO SCH (09:02)
[2016-11-15] MEDS: DULoxetine HCL 30 MG CAPSULE.DR PO SCH (09:02)
[2016-11-15] MEDS: VITAMIN E 200 UNIT CAPSULE. PO SCH (09:02)
[2016-11-15] MEDS: LEVOTHYROXINE 150 MCG TABLET PO SCH (10:49)
--- NOTE | 2016-11-15 11:21 | PDOC1 ---
History and Physical Date of Admission Date of Admission DATE: 11/15/16 TIME: 11:06 Identification/Chief Complaint Chief Complaint Palpitations and Dyspnea Problems: Source Source: Caregiver (Daughter), Patient History of Present Illness History of Present Illness Ms Knowles is a 71 yr old female who presents to the hospital with palpitations and dyspnea. The pain began suddenly yesterday afternoon. She felt like her heart was pounding out of her chest. She doesn't recall ever experiencing symptoms like it before. She reported some chest pain during the incident. She can't remember what she was doing during on the onset of the pain. During the episode she also complained of having a headache. She currently doesn't complain of any chest pain or shortness of breath. She was able to walk to the bathroom w/o becoming dizzy or short of breath. Past Medical History Cardiovascular: CAD, HTN CENTRAL NERVOUS SYSTEM: CVA GI: Constipation Psych: Anxiety, Other (Parkinsons) Musculoskeletal: low back pain Endocrine: Diabetes, Hypothyroidism Past Surgical History Past Surgical History: Cataract Removal, Total knee replacement Family History Family History: No Significant, Diabetes, Other Social History Smoke: Quit ALCOHOL: none Drugs: None Current Problem List Problem List Problems Medical Problems: (1) Acute dyspnea Status: Acute (2) Palpitations Status: Acute Problems: Current Medications Current Medications Current Medications Sodium Chloride 500 ml @ 500 mls/hr 1X ONCE IV Last administered on 20:00; Start 11/14/16 at 19:30; Stop 11/14/16 at 20:29; Status DC Sodium Chloride 1,000 ml @ 150 mls/hr Q6H40M IV ; Start 11/14/16 at 22:00; Stop 11/15/16 at 01:36; Status DC Aspirin (Ecotrin) 81 mg DAILY PO Last administered on 11/15/16 09:01; Start at 09:00 Carbidopa/Levodopa (Sinemet 25/100) 1 tab TID PO Last administered on 04:11; Start 11/15/16 at 04:00 Carvedilol (Coreg) 12.5 mg BIDWMEALS PO Last administered on 11/15/16 09:01; Start 11/15/16 at 08:00 Clopidogrel Bisulfate (Plavix) 75 mg DAILYWBKFT PO Last administered on 09:01; Start 11/15/16 at 08:00 Cyclobenzaprine HCl (Flexeril) 10 mg HS PO Last administered on 11/15/16 04:11 ; Start 11/15/16 at 04:00 Cyclobenzaprine HCl (Flexeril) 20 mg DAILY PO ; Start 11/15/16 at 09:00 Diltiazem HCl (Cardizem 24hr Cd) 180 mg DAILY PO Last administered on 09:03; Start 11/15/16 at 09:00 Docusate Sodium (Colace) 100 mg BID PO ; Start 11/15/16 at 09:00 Donepezil HCl (Aricept) 10 mg DAILY PO Last administered on 11/15/16 09:01; Start 11/15/16 at 09:00 Levothyroxine Sodium (Synthroid) 150 mcg DAILY07 PO Last administered on 10:49; Start 11/15/16 at 07:00 Lidocaine (Lidoderm) 1 patch HS TP ; Start 11/15/16 at 04:00 Lorazepam (Ativan) 0.5 mg BID PO Last administered on 11/15/16 04:11; Start at 04:00 Magnesium Oxide (Magnesium Oxide) 400 mg BID PO Last administered on 11/15/16 09:00; Start 11/15/16 at 09:00 Metformin HCl (Glucophage) 500 mg BIDWMEALS PO Last administered on 11/15/16 09:01; Start 11/15/16 at 08:00 Primidone (Mysoline) 100 mg TID PO Last administered on 11/15/16 04:11; Start 11/15/16 at 04:00 Ropinirole HCl (Requip) 1 mg TID PO Last administered on 11/15/16 04:11; Start 11/15/16 at 04:00 Zolpidem Tartrate (Ambien) 5 mg QHS PO ; Start 11/15/16 at 04:00 Non-Formulary Medication 200 mg HS PO ; Start 11/15/16 at 21:00; Status UNV Buspirone HCl (Buspar) 15 mg BID PO Last administered on 11/15/16 04:11; Start 11/15/16 at 04:00 Vitamin D (Vitamin D3) 5,000 unit DAILY PO Last administered on 11/15/16 09:02 ; Start 11/15/16 at 09:00 Duloxetine HCl (Cymbalta) 60 mg DAILY PO Last administered on 11/15/16 09:02; Start 11/15/16 at 09:00 Pantoprazole Sodium (Protonix) 40 mg DAILYAC PO Last administered on 11/15/16 09:02; Start 11/15/16 at 07:30 Levetiracetam (Keppra) 1,000 mg BID PO Last administered on 11/15/16 04:11; Start 11/15/16 at 04:00 Non-Formulary Medication 4 each HS PO ; Start 11/15/16 at 21:00; Status UNV Mirtazapine (Remeron) 30 mg QHS PO Last administered on 11/15/16 04:10; Start 11/15/16 at 04:00 Oxycodone HCl (OxyCONTIN) 10 mg DAILY PO ; Start 11/15/16 at 09:00 Oxycodone HCl (OxyCONTIN) 20 mg QHS PO Last administered on 11/15/16 04:10; Start 11/15/16 at 04:00 Vitamin E 200 unit DAILY PO Last administered on 11/15/16 09:02; Start at 09:00 Active Scripts Active Clopidogrel (Clopidogrel Bisulfate) 75 Mg Tablet 75 Mg PO DAILYWBKFT Reported Myrbetriq (Mirabegron) 50 Mg Tab.er.24h 50 Mg PO DAILY Ropinirole Hcl 1 Mg Tablet 1 Mg PO TID Donepezil Hcl 10 Mg Tablet 1 Tab PO DAILY Oxycodone Hcl 10 Mg Tablet 1 Tab PO DAILY Cyclobenzaprine Hcl 10 Mg Tablet 2 Tab PO DAILY Slow Release Iron (Ferrous Sulfate) 142 Mg Tablet.er 142 Mg PO Lorazepam 1 Mg Tablet 0.5 Mg PO BID Duloxetine Hcl 60 Mg Capsule.dr 60 Mg PO DAILY Cyclobenzaprine Hcl 10 Mg Tablet 1 Tab PO HS Melatonin 3 Mg Tablet (Melatonin/Pyridoxine) 1 Each Tablet 4 Each PO HS Cardizem Cd (Diltiazem Hcl) 180 Mg Cap.er.24h 1 Cap PO DAILY Oxycodone Hcl 10 Mg Tablet 2 Tab PO HS Vitamin E (Vitamin E (Dl,Tocopheryl Acet)) 100 Unit Capsule 100 Unit PO DAILY Lidoderm (Lidocaine) 700 Mg Adh..patch 1 Patch TP HS Aspir 81 (Aspirin) 81 Mg Tablet.dr 1 Tab PO DAILY Primidone 50 Mg Tablet 100 Mg PO TID Carbidopa-Levodopa 25-100 Tab (Carbidopa/Levodopa) 1 Each Tablet 1 Each PO TID Mirtazapine 30 Mg Tab.rapdis 30 Mg PO HS Zolpidem Tartrate 5 Mg Tablet 1 Tab PO QHS Magnesium Oxide 400 Mg Tablet 400 Mg PO BID Myrbetriq (Mirabegron) 50 Mg Tab.er.24h 50 Mg PO Coreg (Carvedilol) 12.5 Mg Tablet 1 Tab PO BID . Keppra (Levetiracetam) 1,000 Mg Tablet 1 Tab PO BID Metformin Hcl 500 Mg Tablet 1 Tab PO BID Colace (Docusate Sodium) 100 Mg Capsule 1 Cap PO BID Vitamin D3 (Cholecalciferol (Vitamin D3)) 5,000 Unit Tablet 5,000 Unit PO DAILY Nexium Capsule (Esomeprazole Magnesium) 40 Mg Capsule.dr 40 Mg PO DAILY Amoxapine 50 Mg Tablet 200 Mg PO HS Buspirone Hcl 15 Mg Tablet 15 Mg PO BID . Levothyroxine Sodium 125 Mcg Tablet 150 Mcg PO BID Allergies Allergies: Coded Allergies: Sulfa (Sulfonamide Antibiotics) (Verified Allergy, Intermediate, hives, ) dexamethasone (Verified Allergy, Intermediate, 12/28/15) neomycin (Verified Allergy, Intermediate, 12/28/15) polymyxin B (Verified Allergy, Intermediate, 12/28/15) Physical Exam General: Alert, No acute distress Lungs: Clear to auscultation (b/l), Normal air movement Heart: S1S2, RRR Extremities: Normal pulses (2/4 radial b/l) Vitals Vitals Vital Signs Date Time Temp Pulse Resp B/P (MAP) Pulse Ox O2 Delivery O2 Flow Rate FiO2 11/15/16 09:48 95 Room Air 11/15/16 09:03 82 158/82 11/15/16 07:00 98.2 18 98.2 Labs Labs Laboratory Tests Test 11/14/16 19:35 11/14/16 19:48 11/14/16 20:05 11/15/16 07:57 White Blood Count 7.1 x10^3/uL (4.0-11.0) Red Blood Count 3.39 x10^6/uL (3.50-5.40) Hemoglobin 10.8 g/dL (12.0-15.5) Hematocrit 32.1 % (36.0-47.0) Mean Corpuscular Volume 95 fL (79-100) Mean Corpuscular Hemoglobin 32 pg (25-35) Mean Corpuscular Hemoglobin Concent 34 g/dL (31-37) Red Cell Distribution Width 14.9 % (11.5-14.5) Platelet Count 263 x10^3/uL (140-400) Neutrophils (%) (Auto) 57 % (31-73) Lymphocytes (%) (Auto) 34 % (24-48) Monocytes (%) (Auto) 7 % (0-9) Eosinophils (%) (Auto) 2 % (0-3) Basophils (%) (Auto) 1 % (0-3) Neutrophils # (Auto) 4.0 x10^3uL (1.8-7.7) Lymphocytes # (Auto) 2.4 x10^3/uL (1.0-4.8) Monocytes # (Auto) 0.5 x10^3/uL (0.0-1.1) Eosinophils # (Auto) 0.1 x10^3/uL (0.0-0.7) Basophils # (Auto) 0.0 x10^3/uL (0.0-0.2) Sodium Level 137 mmol/L (136-145) Potassium Level 4.5 mmol/L (3.5-5.1) Chloride Level 100 mmol/L (98-107) Carbon Dioxide Level 28 mmol/L (21-32) Anion Gap 9 (6-14) Blood Urea Nitrogen 18 mg/dL (7-20) Creatinine 0.9 mg/dL (0.6-1.0) Estimated GFR (Cockcroft-Gault) 61.9 BUN/Creatinine Ratio 20 (6-20) Glucose Level 104 mg/dL (70-99) Calcium Level 8.4 mg/dL (8.5-10.1) Total Bilirubin 0.2 mg/dL (0.2-1.0) Aspartate Amino Transf (AST/SGOT) 20 U/L (15-37) Alanine Aminotransferase (ALT/SGPT) 21 U/L (14-59) Alkaline Phosphatase 149 U/L (46-116) Troponin I Quantitative < 0.017 ng/mL (0.000-0.055) Total Protein 6.1 g/dL (6.4-8.2) Albumin 3.2 g/dL (3.4-5.0) Albumin/Globulin Ratio 1.1 (1.0-1.7) Thyroid Stimulating Hormone (TSH) 1.374 uIU/mL (0.358-3.74) Glucose (Fingerstick) 112 mg/dL (70-99) 96 mg/dL (70-99) Urine Collection Type Unknown Urine Color Yellow Urine Clarity Clear Urine pH 5.5 Urine Specific [place] <=1.005 Urine Protein Negative mg/dL (NEG-TRACE) Urine Glucose (UA) Negative mg/dL (NEG) Urine Ketones (Stick) Negative mg/dL (NEG) Urine Blood Negative (NEG) Urine Nitrite Negative (NEG) Urine Bilirubin Negative (NEG) Urine Urobilinogen Dipstick 0.2 mg/dL (0.2 mg/dL) Urine Leukocyte Esterase Negative (NEG) Urine RBC 0 /HPF (0-2) Urine WBC 0 /HPF (0-4) Urine Squamous Epithelial Cells Few /LPF Urine Bacteria 0 /HPF (0-FEW) Laboratory Tests Test 11/14/16 19:35 11/14/16 19:48 11/14/16 20:05 11/15/16 07:57 White Blood Count 7.1 x10^3/uL (4.0-11.0) Red Blood Count 3.39 x10^6/uL (3.50-5.40) Hemoglobin 10.8 g/dL (12.0-15.5) Hematocrit 32.1 % (36.0-47.0) Mean Corpuscular Volume 95 fL (79-100) Mean Corpuscular Hemoglobin 32 pg (25-35) Mean Corpuscular Hemoglobin Concent 34 g/dL (31-37) Red Cell Distribution Width 14.9 % (11.5-14.5) Platelet Count 263 x10^3/uL (140-400) Neutrophils (%) (Auto) 57 % (31-73) Lymphocytes (%) (Auto) 34 % (24-48) Monocytes (%) (Auto) 7 % (0-9) Eosinophils (%) (Auto) 2 % (0-3) Basophils (%) (Auto) 1 % (0-3) Neutrophils # (Auto) 4.0 x10^3uL (1.8-7.7) Lymphocytes # (Auto) 2.4 x10^3/uL (1.0-4.8) Monocytes # (Auto) 0.5 x10^3/uL (0.0-1.1) Eosinophils # (Auto) 0.1 x10^3/uL (0.0-0.7) Basophils # (Auto) 0.0 x10^3/uL (0.0-0.2) Sodium Level 137 mmol/L (136-145) Potassium Level 4.5 mmol/L (3.5-5.1) Chloride Level 100 mmol/L (98-107) Carbon Dioxide Level 28 mmol/L (21-32) Anion Gap 9 (6-14) Blood Urea Nitrogen 18 mg/dL (7-20) Creatinine 0.9 mg/dL (0.6-1.0) Estimated GFR (Cockcroft-Gault) 61.9 BUN/Creatinine Ratio 20 (6-20) Glucose Level 104 mg/dL (70-99) Calcium Level 8.4 mg/dL (8.5-10.1) Total Bilirubin 0.2 mg/dL (0.2-1.0) Aspartate Amino Transf (AST/SGOT) 20 U/L (15-37) Alanine Aminotransferase (ALT/SGPT) 21 U/L (14-59) Alkaline Phosphatase 149 U/L (46-116) Troponin I Quantitative < 0.017 ng/mL (0.000-0.055) Total Protein 6.1 g/dL (6.4-8.2) Albumin 3.2 g/dL (3.4-5.0) Albumin/Globulin Ratio 1.1 (1.0-1.7) Thyroid Stimulating Hormone (TSH) 1.374 uIU/mL (0.358-3.74) Glucose (Fingerstick) 112 mg/dL (70-99) 96 mg/dL (70-99) Urine Collection Type Unknown Urine Color Yellow Urine Clarity Clear Urine pH 5.5 Urine Specific [place] <=1.005 Urine Protein Negative mg/dL (NEG-TRACE) Urine Glucose (UA) Negative mg/dL (NEG) Urine Ketones (Stick) Negative mg/dL (NEG) Urine Blood Negative (NEG) Urine Nitrite Negative (NEG) Urine Bilirubin Negative (NEG) Urine Urobilinogen Dipstick 0.2 mg/dL (0.2 mg/dL) Urine Leukocyte Esterase Negative (NEG) Urine RBC 0 /HPF (0-2) Urine WBC 0 /HPF (0-4) Urine Squamous Epithelial Cells Few /LPF Urine Bacteria 0 /HPF (0-FEW) VTE Prophylaxis Ordered VTE Prophylaxis Devices: Yes VTE Pharmacological Prophylaxi: Yes Assessment/Plan Assessment/Plan Ms Knowles is a 71 yr old female who presents with palpitations and dyspnea 1) cardiomyopathy - order echo for today 2) electrolyte abnormality - get CMP and Mg level Will monitor patient overnight. If the echo and labs are normal and patient remains stable, will discharge tomorrow ANDREW SKINNER MD Nov 15, 2016 11:21
[2016-11-15 12:46] LABS: ALBUMIN 3.6 g/dL (3.4-5.0); ALBUMIN/GLOBULIN RATIO 0.9 (1.0-1.7); CALCIUM 8.7 mg/dL (8.5-10.1); CREATININE 0.9 mg/dL (0.6-1.0); GFR 61.9; POTASSIUM 4.2 mmol/L (3.5-5.1); TOTAL BILIRUBIN 0.3 mg/dL (0.2-1.0); TOTAL PROTEIN 7.6 g/dL (6.4-8.2)
[2016-11-15] MEDS ORDERED: LOPERAMIDE 2 MG CAPSULE PO PRN (14:00)
[2016-11-15] MEDS ORDERED: MELATONIN PO SCH (21:00)
[2016-11-15] MEDS ORDERED: PYRIDOXINE PO SCH (21:00)
[2016-11-15] MEDS ORDERED: AMOXAPINE PO SCH (21:00)
[2016-11-16 03:00] VITALS: BP 196/71
[2016-11-16 04:58] VITALS: BP 156/60
[2016-11-16 07:00] VITALS: BP 157/79
[2016-11-16] MEDS: DOCUSATE SODIUM 100 MG CAPSULE. PO SCH (09:00)
[2016-11-16] MEDS: DONEPEZIL HCL 10 MG TABLET. PO SCH (09:26)
[2016-11-16] MEDS: metFORMIN 500 MG TABLET PO SCH (09:26)
[2016-11-16] MEDS: ASPIRIN ENTERIC COATED 81 MG TABLET.DR. PO SCH (09:26)
[2016-11-16] MEDS: MAGNESIUM OXIDE 400 MG TABLET PO SCH (09:26)
[2016-11-16] MEDS: PRIMIDONE 50 MG TABLET PO SCH ×2 (09:27→14:55)
[2016-11-16] MEDS: busPIRone 10 MG TABLET. PO SCH (09:27)
[2016-11-16] MEDS: CARBIDOPA/LEVODOPA 25/100MG TABLET PO SCH ×2 (09:28→14:54)
[2016-11-16] MEDS: levETIRAcetam 500 MG TABLET PO SCH (09:28)
[2016-11-16] MEDS: CHOLECALCIFEROL (VITAMIN D3) 5,000 UNIT CAPSULE PO SCH (09:29)
[2016-11-16] MEDS: CYCLOBENZAPRINE 10 MG TABLET. PO SCH (09:29)
[2016-11-16] MEDS: VITAMIN E 200 UNIT CAPSULE. PO SCH (09:30)
[2016-11-16] MEDS: rOPINIRole 1 MG TABLET. PO SCH ×2 (09:30→14:57)
[2016-11-16] MEDS: LORazepam 0.5 MG TABLET PO SCH (09:30)
[2016-11-16] MEDS: CLOPIDOGREL BISULFATE 75 MG TABLET PO SCH (09:31)
[2016-11-16] MEDS: oxyCODONE ER 10 MG TAB.ER.12H PO SCH (09:31)
[2016-11-16] MEDS: DULoxetine HCL 30 MG CAPSULE.DR PO SCH (09:32)
[2016-11-16] MEDS: CARVEDILOL 12.5 MG TABLET. PO SCH (09:33)
[2016-11-16] MEDS: PANTOPRAZOLE 40 MG TABLET.DR. PO SCH (10:55)
[2016-11-16] MEDS: LEVOTHYROXINE 150 MCG TABLET PO SCH (10:56)
[2016-11-16 11:00] VITALS: BP 108/55
--- NOTE | 2016-11-16 13:05 | PDOC ---
PROGRESS NOTES Subjective Subjective Ms Knowles had no acute events overnight. She reports resting well and is currently sitting up comfortably in her chair. She reports no new episodes of palpitations, chest pain, or shortness of breath. She has been able to ambulate around the room. Objective Objective Vital Signs Date Time Temp Pulse Resp B/P (MAP) Pulse Ox O2 Delivery O2 Flow Rate FiO2 11/16/16 11:00 98.9 101 18 108/55 (72) 94 Room Air 98.9 11/15/16 20:00 1.0 Intake and Output 11/16/16 07:00 Intake Total 650 ml Output Total 550 ml Balance 100 ml Intake Oral 650 ml Output Urine Total 550 ml # Voids 3 Physical Exam Heart: Normal S1, Normal S2, Other (mild tachycardic) Extremities: No edema, Normal pulses (2/4 radial b/l) General: Alert, No acute distress Lungs: Clear to auscultation (b/l), Normal air movement Assessment Assessment Ms Knowles is a 71 yr old female who presents with palpitations and dyspnea 1) cardiomyopathy - Echo showed 40% ejection fraction, this is unchanged for this patient 2) electrolyte abnormality - electrolytes with normal range, alk Phos elevated Patient is stable and can be discharged Will follow up in 3 weeks in outpatient clinic Problems Medical Problems: (1) Acute dyspnea Status: Acute (2) Palpitations Status: Acute Comment Review of Relevant I have reviewed the following items dina (where applicable) has been applied. Labs Laboratory Tests Test 11/14/16 19:35 11/14/16 19:48 11/14/16 20:05 11/15/16 07:57 White Blood Count 7.1 x10^3/uL (4.0-11.0) Red Blood Count 3.39 x10^6/uL (3.50-5.40) Hemoglobin 10.8 g/dL (12.0-15.5) Hematocrit 32.1 % (36.0-47.0) Mean Corpuscular Volume 95 fL (79-100) Mean Corpuscular Hemoglobin 32 pg (25-35) Mean Corpuscular Hemoglobin Concent 34 g/dL (31-37) Red Cell Distribution Width 14.9 % (11.5-14.5) Platelet Count 263 x10^3/uL (140-400) Neutrophils (%) (Auto) 57 % (31-73) Lymphocytes (%) (Auto) 34 % (24-48) Monocytes (%) (Auto) 7 % (0-9) Eosinophils (%) (Auto) 2 % (0-3) Basophils (%) (Auto) 1 % (0-3) Neutrophils # (Auto) 4.0 x10^3uL (1.8-7.7) Lymphocytes # (Auto) 2.4 x10^3/uL (1.0-4.8) Monocytes # (Auto) 0.5 x10^3/uL (0.0-1.1) Eosinophils # (Auto) 0.1 x10^3/uL (0.0-0.7) Basophils # (Auto) 0.0 x10^3/uL (0.0-0.2) Sodium Level 137 mmol/L (136-145) Potassium Level 4.5 mmol/L (3.5-5.1) Chloride Level 100 mmol/L (98-107) Carbon Dioxide Level 28 mmol/L (21-32) Anion Gap 9 (6-14) Blood Urea Nitrogen 18 mg/dL (7-20) Creatinine 0.9 mg/dL (0.6-1.0) Estimated GFR (Cockcroft-Gault) 61.9 BUN/Creatinine Ratio 20 (6-20) Glucose Level 104 mg/dL (70-99) Calcium Level 8.4 mg/dL (8.5-10.1) Total Bilirubin 0.2 mg/dL (0.2-1.0) Aspartate Amino Transf (AST/SGOT) 20 U/L (15-37) Alanine Aminotransferase (ALT/SGPT) 21 U/L (14-59) Alkaline Phosphatase 149 U/L (46-116) Troponin I Quantitative < 0.017 ng/mL (0.000-0.055) Total Protein 6.1 g/dL (6.4-8.2) Albumin 3.2 g/dL (3.4-5.0) Albumin/Globulin Ratio 1.1 (1.0-1.7) Thyroid Stimulating Hormone (TSH) 1.374 uIU/mL (0.358-3.74) Glucose (Fingerstick) 112 mg/dL (70-99) 96 mg/dL (70-99) Urine Collection Type Unknown Urine Color Yellow Urine Clarity Clear Urine pH 5.5 Urine Specific [place] <=1.005 Urine Protein Negative mg/dL (NEG-TRACE) Urine Glucose (UA) Negative mg/dL (NEG) Urine Ketones (Stick) Negative mg/dL (NEG) Urine Blood Negative (NEG) Urine Nitrite Negative (NEG) Urine Bilirubin Negative (NEG) Urine Urobilinogen Dipstick 0.2 mg/dL (0.2 mg/dL) Urine Leukocyte Esterase Negative (NEG) Urine RBC 0 /HPF (0-2) Urine WBC 0 /HPF (0-4) Urine Squamous Epithelial Cells Few /LPF Urine Bacteria 0 /HPF (0-FEW) Test 11/15/16 11:40 11/15/16 12:34 11/15/16 16:31 11/15/16 21:48 Sodium Level 142 mmol/L (136-145) Potassium Level 4.2 mmol/L (3.5-5.1) Chloride Level 103 mmol/L (98-107) Carbon Dioxide Level 31 mmol/L (21-32) Anion Gap 8 (6-14) Blood Urea Nitrogen 16 mg/dL (7-20) Creatinine 0.9 mg/dL (0.6-1.0) Estimated GFR (Cockcroft-Gault) 61.9 BUN/Creatinine Ratio 18 (6-20) Glucose Level 111 mg/dL (70-99) Calcium Level 8.7 mg/dL (8.5-10.1) Magnesium Level 2.0 mg/dL (1.8-2.4) Total Bilirubin 0.3 mg/dL (0.2-1.0) Aspartate Amino Transf (AST/SGOT) 22 U/L (15-37) Alanine Aminotransferase (ALT/SGPT) 18 U/L (14-59) Alkaline Phosphatase 146 U/L (46-116) Total Protein 7.6 g/dL (6.4-8.2) Albumin 3.6 g/dL (3.4-5.0) Albumin/Globulin Ratio 0.9 (1.0-1.7) Glucose (Fingerstick) 104 mg/dL (70-99) 146 mg/dL (70-99) 111 mg/dL (70-99) Test 11/16/16 12:13 Glucose (Fingerstick) 118 mg/dL (70-99) Laboratory Tests Test 11/15/16 16:31 11/15/16 21:48 11/16/16 12:13 Glucose (Fingerstick) 146 mg/dL (70-99) 111 mg/dL (70-99) 118 mg/dL (70-99) Medications Current Medications Sodium Chloride 500 ml @ 500 mls/hr 1X ONCE IV Last administered on 20:00; Start 11/14/16 at 19:30; Stop 11/14/16 at 20:29; Status DC Sodium Chloride 1,000 ml @ 150 mls/hr Q6H40M IV ; Start 11/14/16 at 22:00; Stop 11/15/16 at 01:36; Status DC Aspirin (Ecotrin) 81 mg DAILY PO Last administered on 11/16/16 09:26; Start at 09:00 Carbidopa/Levodopa (Sinemet 25/100) 1 tab TID PO Last administered on 09:28; Start 11/15/16 at 04:00 Carvedilol (Coreg) 12.5 mg BIDWMEALS PO Last administered on 11/16/16 09:33; Start 11/15/16 at 08:00 Clopidogrel Bisulfate (Plavix) 75 mg DAILYWBKFT PO Last administered on 09:31; Start 11/15/16 at 08:00 Cyclobenzaprine HCl (Flexeril) 10 mg HS PO Last administered on 11/15/16 20:38 ; Start 11/15/16 at 04:00 Cyclobenzaprine HCl (Flexeril) 20 mg DAILY PO Last administered on 11/16/16 09 :29; Start 11/15/16 at 09:00 Diltiazem HCl (Cardizem 24hr Cd) 180 mg DAILY PO Last administered on 09:26; Start 11/15/16 at 09:00 Docusate Sodium (Colace) 100 mg BID PO Last administered on 11/15/16 20:38; Start 11/15/16 at 09:00 Donepezil HCl (Aricept) 10 mg DAILY PO Last administered on 11/16/16 09:26; Start 11/15/16 at 09:00 Levothyroxine Sodium (Synthroid) 150 mcg DAILY07 PO Last administered on 10:56; Start 11/15/16 at 07:00 Lidocaine (Lidoderm) 1 patch HS TP Last administered on 11/15/16 20:39; Start 11/15/16 at 04:00 Lorazepam (Ativan) 0.5 mg BID PO Last administered on 11/16/16 09:30; Start at 04:00 Magnesium Oxide (Magnesium Oxide) 400 mg BID PO Last administered on 11/16/16 09:26; Start 11/15/16 at 09:00 Metformin HCl (Glucophage) 500 mg BIDWMEALS PO Last administered on 11/16/16 09:26; Start 11/15/16 at 08:00 Primidone (Mysoline) 100 mg TID PO Last administered on 11/16/16 09:27; Start 11/15/16 at 04:00 Ropinirole HCl (Requip) 1 mg TID PO Last administered on 11/16/16 09:30; Start 11/15/16 at 04:00 Zolpidem Tartrate (Ambien) 5 mg QHS PO Last administered on 11/15/16 20:38; Start 11/15/16 at 04:00 Non-Formulary Medication 200 mg HS PO ; Start 11/15/16 at 21:00; Status UNV Buspirone HCl (Buspar) 15 mg BID PO Last administered on 11/16/16 09:27; Start 11/15/16 at 04:00 Vitamin D (Vitamin D3) 5,000 unit DAILY PO Last administered on 11/16/16 09:29 ; Start 11/15/16 at 09:00 Duloxetine HCl (Cymbalta) 60 mg DAILY PO Last administered on 11/16/16 09:32; Start 11/15/16 at 09:00 Pantoprazole Sodium (Protonix) 40 mg DAILYAC PO Last administered on 11/16/16 10:55; Start 11/15/16 at 07:30 Levetiracetam (Keppra) 1,000 mg BID PO Last administered on 11/16/16 09:28; Start 11/15/16 at 04:00 Non-Formulary Medication 4 each HS PO ; Start 11/15/16 at 21:00; Status UNV Mirtazapine (Remeron) 30 mg QHS PO Last administered on 11/15/16 20:38; Start 11/15/16 at 04:00 Oxycodone HCl (OxyCONTIN) 10 mg DAILY PO Last administered on 11/16/16 09:31; Start 11/15/16 at 09:00 Oxycodone HCl (OxyCONTIN) 20 mg QHS PO Last administered on 11/15/16 20:38; Start 11/15/16 at 04:00 Vitamin E 200 unit DAILY PO Last administered on 11/16/16 09:30; Start at 09:00 Loperamide HCl (Imodium) 2 mg PRN BID PRN PO DIARRHEA Last administered on 11/15 14:09; Start 11/15/16 at 14:00 Active Scripts Active Clopidogrel (Clopidogrel Bisulfate) 75 Mg Tablet 75 Mg PO DAILYWBKFT Reported Myrbetriq (Mirabegron) 50 Mg Tab.er.24h 50 Mg PO DAILY Ropinirole Hcl 1 Mg Tablet 1 Mg PO TID Donepezil Hcl 10 Mg Tablet 1 Tab PO DAILY Oxycodone Hcl 10 Mg Tablet 1 Tab PO DAILY Cyclobenzaprine Hcl 10 Mg Tablet 2 Tab PO DAILY Slow Release Iron (Ferrous Sulfate) 142 Mg Tablet.er 142 Mg PO Lorazepam 1 Mg Tablet 0.5 Mg PO BID Duloxetine Hcl 60 Mg Capsule.dr 60 Mg PO DAILY Cyclobenzaprine Hcl 10 Mg Tablet 1 Tab PO HS Melatonin 3 Mg Tablet (Melatonin/Pyridoxine) 1 Each Tablet 4 Each PO HS Cardizem Cd (Diltiazem Hcl) 180 Mg Cap.er.24h 1 Cap PO DAILY Oxycodone Hcl 10 Mg Tablet 2 Tab PO HS Vitamin E (Vitamin E (Dl,Tocopheryl Acet)) 100 Unit Capsule 100 Unit PO DAILY Lidoderm (Lidocaine) 700 Mg Adh..patch 1 Patch TP HS Aspir 81 (Aspirin) 81 Mg Tablet.dr 1 Tab PO DAILY Primidone 50 Mg Tablet 100 Mg PO TID Carbidopa-Levodopa 25-100 Tab (Carbidopa/Levodopa) 1 Each Tablet 1 Each PO TID Mirtazapine 30 Mg Tab.rapdis 30 Mg PO HS Zolpidem Tartrate 5 Mg Tablet 1 Tab PO QHS Magnesium Oxide 400 Mg Tablet 400 Mg PO BID Myrbetriq (Mirabegron) 50 Mg Tab.er.24h 50 Mg PO Coreg (Carvedilol) 12.5 Mg Tablet 1 Tab PO BID . Keppra (Levetiracetam) 1,000 Mg Tablet 1 Tab PO BID Metformin Hcl 500 Mg Tablet 1 Tab PO BID Colace (Docusate Sodium) 100 Mg Capsule 1 Cap PO BID Vitamin D3 (Cholecalciferol (Vitamin D3)) 5,000 Unit Tablet 5,000 Unit PO DAILY Nexium Capsule (Esomeprazole Magnesium) 40 Mg Capsule.dr 40 Mg PO DAILY Amoxapine 50 Mg Tablet 200 Mg PO HS Buspirone Hcl 15 Mg Tablet 15 Mg PO BID . Levothyroxine Sodium 125 Mcg Tablet 150 Mcg PO BID Vitals/I & O Vital Sign - Last 24 Hours 11/15/16 11/15/16 11/15/16 11/15/16 14:39 17:15 17:20 18:33 Temp 98.5 97.9 97.9 97.9 98.5 97.9 97.9 97.9 Pulse 86 76 76 89 Resp 18 18 18 20 B/P (MAP) 139/70 (93) 111/60 (77) 111/60 (77) 134/68 (90) Pulse Ox 92 98 96 95 O2 Delivery Room Air Room Air Room Air Room Air 11/15/16 11/15/16 11/15/16 11/15/16 18:40 20:00 20:38 23:00 Temp 98.1 98.1 Pulse 89 73 Resp 20 B/P (MAP) 134/68 149/68 (95) Pulse Ox 95 97 O2 Delivery Nasal Cannula Room Air O2 Flow Rate 1.0 11/16/16 11/16/16 11/16/16 11/16/16 03:00 04:58 07:00 08:00 Temp 98.1 98.4 98.1 98.4 Pulse 78 77 77 Resp 20 18 B/P (MAP) 196/71 (112) 156/60 (92) 157/79 (105) Pulse Ox 96 95 O2 Delivery Room Air Room Air 11/16/16 11/16/16 11/16/16 11/16/16 09:26 09:31 09:33 11:00 Temp 98.9 98.9 Pulse 77 77 101 Resp 18 B/P (MAP) 157/79 157/79 108/55 (72) Pulse Ox 94 O2 Delivery Room Air Room Air Intake and Output 11/15/16 11/15/16 11/16/16 15:00 23:00 07:00 Intake Total 300 ml 350 ml Output Total 350 ml 200 ml Balance -50 ml 150 ml ANDREW SKINNER MD Nov 16, 2016 13:05
[2016-11-16 15:00] VITALS: BP 134/77
--- NOTE | 2016-11-16 15:58 | CARD ---
APPROVED REPORT EXAM: Two-dimensional and M-mode echocardiogram with Doppler and color Doppler. Other Information Quality : Fair Rhythm : Pacemaker INDICATION Palpitations Dyspnea 2D DIMENSIONS RVDd3.2 (2.9-3.5cm)Left Atrium(2D)3.8 (1.6-4.0cm) IVSd1.1 (0.7-1.1cm)Aortic Root(2D)2.8 (2.0-3.7cm) LVDd5.1 (3.9-5.9cm)LVOT Diameter2.0 (1.8-2.4cm) PWd1.1 (0.7-1.1cm)LVDs3.7 (2.5-4.0cm) FS (%) 26.2 %SV62.0 ml LVEF(%)40.0 (>50%) Aortic Valve AoV Peak Carson.112.4cm/sAoV VTI20.4cm AO Peak GR.5.1mmHgLVOT VTI 17.67cm AO Mean GR.3mmHg TDI Medial E' P. V7.47cm/s Tricuspid Valve TR P. [id number] [id number] TR Peak Gr.[id number] LEFT VENTRICLE The left ventricle is normal size. There is normal left ventricular wall thickness. Left ventricle sy stolic function is bellow normal. The Ejection Fraction is 40%. There is global hypokinesis of the le ft ventricle. RIGHT VENTRICLE The right ventricle is normal size. The right ventricular systolic function is normal. ATRIA The left atrium size is normal. The right atrium size is normal. The interatrial septum is intact wit h no evidence for an atrial septal defect or patent foramen ovale as noted on 2-D or Doppler imaging. AORTIC VALVE The aortic valve is normal in structure. The aortic valve is trileaflet. Doppler and Color Flow revea led trace aortic regurgitation. There is no significant aortic valvular stenosis. MITRAL VALVE The mitral valve is normal in structure. There is no mitral valve stenosis. Doppler and Color Flow re vealed mild mitral regurgitation. TRICUSPID VALVE The tricuspid valve is normal in structure. Doppler and Color Flow revealed mild tricuspid regurgitat ion. The PA pressure was estimated at 32 mmHg. There is no tricuspid valve stenosis. PULMONIC VALVE The pulmonic valve is not well visualized. Doppler and Color Flow revealed no pulmonic valvular regur gitation. There is no pulmonic valvular stenosis. GREAT VESSELS The aortic root is normal in size. Pulmonary veins not recorded. The IVC is normal in size and collap ses >50% with inspiration. PERICARDIAL EFFUSION There is no evidence of significant pericardial effusion. Critical Notification Critical Value: No <Conclusion> Left ventricle systolic function is bellow normal. The Ejection Fraction is 40%. There is global hypokinesis of the left ventricle. The left atrium size is normal. The right atrium size is normal. Doppler and Color Flow revealed trace aortic regurgitation. The aortic valve is normal in structure. The aortic valve is trileaflet. Doppler and Color Flow revealed mild mitral regurgitation. Doppler and Color Flow revealed mild tricuspid regurgitation. The PA pressure was estimated at 32 mmHg. The pulmonic valve is not well visualized. There is no evidence of significant pericardial effusion.
== END 2016-11-16 17:54 | disposition home or self-care (01) ==
LOC: ER 18:52 → 6 SOUTH 21:30
PROVIDERS: ADMIT Internal Medicine Cardiovascular Disease; ATTEND Internal Medicine Cardiovascular Disease
DX: I42.9 Cardiomyopathy, unspecified (principal); E87.8 Other disorders of electrolyte and fluid balance, not elsewhere classified; E03.9 Hypothyroidism, unspecified; E11.9 Type 2 diabetes mellitus without complications; E78.00 Pure hypercholesterolemia, unspecified; G20 Parkinson's disease; H40.9 Unspecified glaucoma; I10 Essential (primary) hypertension; F32.9 Major depressive disorder, single episode, unspecified; F41.9 Anxiety disorder, unspecified; I25.10 Atherosclerotic heart disease of native coronary artery without angina pectoris; I48.91 Unspecified atrial fibrillation; J44.9 Chronic obstructive pulmonary disease, unspecified; K21.9 Gastro-esophageal reflux disease without esophagitis; N32.81 Overactive bladder; Z83.3 Family history of diabetes mellitus; Z86.73 Personal history of transient ischemic attack (TIA), and cerebral infarction without residual deficits; Z96.659 Presence of unspecified artificial knee joint
CPT/HCPCS: 36415; 71010; 80053; 81001; 82962; 83735; 84443; 84484; 85027; 93005; 93306; 96360; 97161; 99285; A6539; G0378; G8978; G8979; J7040; G0379

== ENCOUNTER 2017-05-25 17:21 | Emergency (ER) | payer MEDICARE ==
[2017-05-25] MEDS ORDERED: 0.9 % SODIUM CHLORIDE 10 ML DISP.SYRIN. IV (18:30)
[2017-05-25] MEDS ORDERED: ONDANSETRON PF 4 MG/2 ML VIAL. IV (18:30)
[2017-05-25] MEDS ORDERED: MORPHINE SULFATE 4 MG/ML DISP.SYRIN. IV/SQ (18:30)
[2017-05-25] MEDS ORDERED: CONTRAST GIVEN MC (18:45)
[2017-05-25 18:52] LABS: BILIRUBIN,URINE NEGATIVE (NEG); CLARITY,URINE CLEAR; COLOR,URINE YELLOW; GLUCOSE,URINE NEGATIVE (NEG); NITRITE,URINE NEGATIVE (NEG); PH,URINE 5.5; PROTEIN,URINE NEGATIVE (NEG-TRACE); UROBILINOGEN,URINE 0.2 mg/dL (0.2 mg/dL)
[2017-05-25 19:18] LABS: ADD MAN DIFF? NO
[2017-05-25 19:21] LABS: BACTERIA,URINE 0 /HPF (0-FEW); RBC,URINE 0 /HPF (0-2); SQUAMOUS EPITHELIAL CELL,UR OCC /LPF; WBC,URINE OCC /HPF (0-4)
[2017-05-25] MEDS: IV NORMAL SALINE 1000ML BAG 1,000 ML IV (19:22)
[2017-05-25] MEDS: CIPROFLOXACIN 400MG PREMIX 200 ML IV (19:23)
[2017-05-25 19:29] LABS: BASO % 0 % (0-3); EOS # 0.1 x10^3/uL (0.0-0.7); EOS % 2 % (0-3); HEMATOCRIT 36.9 % (36.0-47.0); HEMOGLOBIN 12.1 g/dL (12.0-15.5); LYMPH # 2.1 x10^3/uL (1.0-4.8); LYMPH % 22 % (24-48); MEAN CORPUSCULAR HEMOGLOBIN 31 pg (25-35); MEAN CORPUSCULAR HGB CONC 33 g/dL (31-37); MEAN CORPUSCULAR VOLUME 95 fL (79-100); MONO # 0.6 x10^3/uL (0.0-1.1); MONO % 6 % (0-9); NEUT # 6.7 x10^3uL (1.8-7.7); NEUT % 71 % (31-73); PLATELET COUNT 351 x10^3/uL (140-400); RED BLOOD COUNT 3.87 x10^6/uL (3.50-5.40); RED CELL DISTRIBUTION WIDTH 13.3 % (11.5-14.5); WHITE BLOOD COUNT 9.5 x10^3/uL (4.0-11.0)
[2017-05-25 20:28] LABS: ANION GAP 9 (6-14); BLOOD UREA NITROGEN 16 mg/dL (7-20); CALCIUM 8.4 mg/dL (8.5-10.1); CARBON DIOXIDE 29 mmol/L (21-32); CHLORIDE 97 mmol/L (98-107); CREATININE 0.7 mg/dL (0.6-1.0); GFR 82.5; GLUCOSE 117 mg/dL (70-99); POTASSIUM 4.1 mmol/L (3.5-5.1); SODIUM 135 mmol/L (136-145)
[2017-05-25] MEDS: LABETALOL 20 MG/4 ML DISP.SYRIN. IVP (20:29)
[2017-05-25 20:32] LABS: ALBUMIN 3.2 g/dL (3.4-5.0); ALK PHOS 134 U/L (46-116); ALT (SGPT) 31 U/L (14-59); AST (SGOT) 20 U/L (15-37); DIRECT BILIRUBIN 0.1 mg/dL (0.0-0.2); LIPASE 133 U/L (73-393); TOTAL BILIRUBIN 0.2 mg/dL (0.2-1.0)
[2017-05-25 20:41] LABS: TROPONINI < 0.017 ng/mL (0.000-0.055)
[2017-05-25 20:41] LABS: CKMB MASS 1.1 ng/mL (0.0-3.6); CREATINE KINASE 65 U/L (26-192)
[2017-05-25] MEDS: IOHEXOL 300 MG/ML 100ML VIAL. IV (20:47)
[2017-05-26] MEDS ORDERED: CIPROFLOXACIN 400MG PREMIX 200 ML IV (09:00)
== END 2017-05-25 21:43 | disposition home or self-care (01) ==
LOC: ER 17:21
DX: R10.32 Left lower quadrant pain (principal); E66.01 Morbid (severe) obesity due to excess calories; E03.9 Hypothyroidism, unspecified; E11.9 Type 2 diabetes mellitus without complications; E78.00 Pure hypercholesterolemia, unspecified; J44.9 Chronic obstructive pulmonary disease, unspecified; K21.9 Gastro-esophageal reflux disease without esophagitis; I48.91 Unspecified atrial fibrillation; I10 Essential (primary) hypertension; Z86.73 Personal history of transient ischemic attack (TIA), and cerebral infarction without residual deficits; Z90.710 Acquired absence of both cervix and uterus; N32.81 Overactive bladder; Z98.890 Other specified postprocedural states; Z96.652 Presence of left artificial knee joint; Z68.35 Body mass index [BMI] 35.0-35.9, adult; Z88.2 Allergy status to sulfonamides; Z88.1 Allergy status to other antibiotic agents; Z88.8 Allergy status to other drugs, medicaments and biological substances
CPT/HCPCS: 36415; 74177; 80048; 80076; 81001; 82553; 83690; 84484; 85025; 93005; 96365; 96366; 96375; 99285-25; J0744; J3490; J7030; Q9967

== ENCOUNTER 2017-06-08 17:22 | Emergency (ER) | payer MEDICARE ==
[2017-06-08] MEDS ORDERED: CONTRAST GIVEN MC ×2 (19:00)
[2017-06-08] MEDS: IOHEXOL 300 MG/ML 100ML VIAL. IV ×2 (19:00)
[2017-06-08 19:25] LABS: ADD MAN DIFF? NO
[2017-06-08 19:27] LABS: BASO % 1 % (0-3); EOS # 0.1 x10^3/uL (0.0-0.7); EOS % 1 % (0-3); HEMATOCRIT 35.2 % (36.0-47.0); LYMPH # 3.1 x10^3/uL (1.0-4.8); LYMPH % 36 % (24-48); MEAN CORPUSCULAR HEMOGLOBIN 32 pg (25-35); MEAN CORPUSCULAR HGB CONC 34 g/dL (31-37); MEAN CORPUSCULAR VOLUME 93 fL (79-100); MONO # 0.5 x10^3/uL (0.0-1.1); MONO % 6 % (0-9); NEUT # 4.9 x10^3uL (1.8-7.7); NEUT % 57 % (31-73); PLATELET COUNT 344 x10^3/uL (140-400); RED BLOOD COUNT 3.79 x10^6/uL (3.50-5.40); RED CELL DISTRIBUTION WIDTH 13.1 % (11.5-14.5); WHITE BLOOD COUNT 8.6 x10^3/uL (4.0-11.0)
[2017-06-08 19:36] LABS: ANION GAP 7 (6-14); BLOOD UREA NITROGEN 16 mg/dL (7-20); BUN/CREATININE RATIO 23 (6-20); CALCIUM 8.8 mg/dL (8.5-10.1); CARBON DIOXIDE 29 mmol/L (21-32); CHLORIDE 98 mmol/L (98-107); CREATININE 0.7 mg/dL (0.6-1.0); GFR 82.5; GLUCOSE 96 mg/dL (70-99); POTASSIUM 4.3 mmol/L (3.5-5.1); SODIUM 134 mmol/L (136-145)
[2017-06-08 19:42] LABS: ALBUMIN 3.1 g/dL (3.4-5.0); ALBUMIN/GLOBULIN RATIO 0.8 (1.0-1.7); ALK PHOS 110 U/L (46-116); ALT (SGPT) 10 U/L (14-59); AST (SGOT) 18 U/L (15-37); TOTAL BILIRUBIN 0.1 mg/dL (0.2-1.0); TOTAL PROTEIN 6.9 g/dL (6.4-8.2)
== END 2017-06-08 21:08 | disposition home or self-care (01) ==
LOC: ER 17:22
DX: R10.9 Unspecified abdominal pain (principal); E03.9 Hypothyroidism, unspecified; E11.9 Type 2 diabetes mellitus without complications; E78.00 Pure hypercholesterolemia, unspecified; I10 Essential (primary) hypertension; I48.91 Unspecified atrial fibrillation; K21.9 Gastro-esophageal reflux disease without esophagitis; J44.9 Chronic obstructive pulmonary disease, unspecified; G20 Parkinson's disease; Z86.73 Personal history of transient ischemic attack (TIA), and cerebral infarction without residual deficits; Z90.710 Acquired absence of both cervix and uterus; Z90.49 Acquired absence of other specified parts of digestive tract; Z98.890 Other specified postprocedural states; Z88.2 Allergy status to sulfonamides; Z88.1 Allergy status to other antibiotic agents; Z88.8 Allergy status to other drugs, medicaments and biological substances
CPT/HCPCS: 36415; 74177; 80053; 85025; 99285-25; Q9967

== ENCOUNTER → 2017-07-20 | Outpatient (CLI) | payer MEDICARE | END | disposition home or self-care (01) | LOC: MAMMO 13:10 | DX: N63.11 Unspecified lump in the right breast, upper outer quadrant (principal); R92.8 Other abnormal and inconclusive findings on diagnostic imaging of breast | CPT/HCPCS: 76641; 77066 ==

== ENCOUNTER → 2017-11-01 | Day surgery (SDC) | payer MEDICARE ==
[~2017-11-01] MED LIST changes: -AMIT25TA PO; -AMLO2.5T2 PO; -AMOX50TA PO; -ASPI-482 PO; -ASPI81TA50 PO; -ATOR40TA PO; -BACL10TA PO; -BISA5TAB4 PO; -BUSP15TA PO; -CARB1TAB22 PO; -CARV12.5 PO; -CHOL500016 PO; -CLOP75TA PO; -CYCL10TA2 PO; -CYCL5TAB PO; -DILT180C2 PO; -DOCU-109 PO; -DOCU100C28 PO; -DONE10TA7 PO; -DULO60CA44 PO; -DULO60CA6 PO; -ESOM40CA PO; -ESTR1TAB15 PO; -FERR250T PO; -FOLI1TAB16 PO; -LEVE100020 PO; -LEVO125T5 PO; -LIDO700A4 TP; +LIDOCAINE 1% PF 2 ML VIAL. ID; +LIDOCAINE 2% PF Vial for OR 5 ML VIAL.; -LINA5TAB4 PO; -LORA0.5P MC; -LORA0.5T PO; -LORA1TAB PO; -LUBI24CA7 PO; -MAGN400T3 PO; -MELA1TAB13 PO; -METF500T4 PO; +MIDAZOLAM HCL/PF 2 MG/2 ML VIAL. IV; -MIRA50TA PO; -MIRT15TA PO; -MIRT30TA6 PO; -NYST15PO9 TP; -OMEG1CAP6 PO; -OXYC-323 PO; -OXYC10TA PO; -OXYC20TA34 PO; -OXYC30TA64 PO; -POLY17PO29 PO; -PRIM50TA PO; +PROPOFOL 20 ML IV; -RIVA1.5C4 PO; -ROPI0.5T PO; -SLOW RELEASE I142 MG PO; -TRAM50TA PO; -TRIA0.25 PO; -VITA100C8 PO; -ZOLP10TA4 PO; -ZOLP5TAB5 PO; +fentaNYL PF VIAL 100 MCG/2 ML VIAL IV
[2017-11-01] MEDS: IV RINGERS,LACTATED 1000ML 1,000 ML IV (13:40)
[2017-11-01 13:41] LABS: POC GLUCOSE 121 mg/dL (70-99)
== END | disposition home or self-care (01) ==
LOC: SURG 13:09
DX: K29.50 Unspecified chronic gastritis without bleeding (principal); J44.9 Chronic obstructive pulmonary disease, unspecified; E11.9 Type 2 diabetes mellitus without complications; F41.9 Anxiety disorder, unspecified; M19.90 Unspecified osteoarthritis, unspecified site; F32.9 Major depressive disorder, single episode, unspecified; I11.0 Hypertensive heart disease with heart failure; I50.9 Heart failure, unspecified; E03.9 Hypothyroidism, unspecified; I25.2 Old myocardial infarction; G20 Parkinson's disease; G47.30 Sleep apnea, unspecified; K21.9 Gastro-esophageal reflux disease without esophagitis; D50.0 Iron deficiency anemia secondary to blood loss (chronic); Z72.89 Other problems related to lifestyle; Z79.82 Long term (current) use of aspirin; Z79.899 Other long term (current) drug therapy; Z79.84 Long term (current) use of oral hypoglycemic drugs; Z95.0 Presence of cardiac pacemaker; Z90.710 Acquired absence of both cervix and uterus; Z90.49 Acquired absence of other specified parts of digestive tract; Z98.890 Other specified postprocedural states; Z88.2 Allergy status to sulfonamides; Z88.1 Allergy status to other antibiotic agents; Z87.891 Personal history of nicotine dependence; Z87.11 Personal history of peptic ulcer disease; Z82.3 Family history of stroke
CPT/HCPCS: 43235; 82962; J2001; J2704

== ENCOUNTER 2018-01-11 19:52 | Emergency (ER) | payer MEDICARE ==
[~2018-01-11] VITALS: Ht 160 cm; Wt 82.6 kg
[~2018-01-11 19:52] MED LIST changes: +AMIT25TA PO; +AMLO2.5T2 PO; +AMOX50TA PO; +ASPI-482 PO; +ASPI81TA50 PO; +ATOR40TA PO; +BACL10TA PO; +BISA5TAB4 PO; +BUSP15TA PO; +CARB1TAB22 PO; +CARV12.5 PO; +CHOL500016 PO; +CIPR500T94 PO; +CLOP75TA PO; +CYCL10TA2 PO; +CYCL5TAB PO; +DILT180C2 PO; +DOCU-109 PO; +DOCU100C28 PO; +DONE10TA7 PO; +DULO60CA44 PO; +DULO60CA6 PO; +ESOM40CA PO; +ESTR1TAB15 PO; +FERR250T PO; +FOLI1TAB16 PO; +LACT1CAP19 PO; +LEVE100020 PO; +LEVO125T5 PO; +LEVO150T5 PO; +LIDO700A4 TP; -LIDOCAINE 1% PF 2 ML VIAL. ID; -LIDOCAINE 2% PF Vial for OR 5 ML VIAL.; +LINA5TAB4 PO; +LORA0.5P MC; +LORA0.5T PO; +LORA1TAB PO; +LUBI24CA7 PO; +MAGN400T3 PO; +MELA1TAB13 PO; +METF500T16 PO; +METO10TA81 PO; +METR500T PO; -MIDAZOLAM HCL/PF 2 MG/2 ML VIAL. IV; +MIRA50TA PO; +MIRT15TA PO; +MIRT30TA6 PO; +NYST15PO9 TP; +OMEG1CAP6 PO; +ONDA4TAB10 PO; +OXYC-323 PO; +OXYC10TA PO; +OXYC20TA34 PO; +OXYC30TA64 PO; +POLY17PO29 PO; +PRIM50TA PO; -PROPOFOL 20 ML IV; +RIVA1.5C4 PO; +ROPI0.5T PO; +ROPI1TAB2 PO; +SLOW RELEASE I142 MG PO; +TRAM50TA PO; +TRIA0.25 PO; +VITA100C8 PO; +ZOLP10TA4 PO; +ZOLP5TAB5 PO; -fentaNYL PF VIAL 100 MCG/2 ML VIAL IV
[2018-01-11 20:50] LABS: BASO # 0.1 x10^3/uL (0.0-0.2); BASO % 1 % (0-3); EOS # 0.2 x10^3/uL (0.0-0.7); EOS % 2 % (0-3); HEMATOCRIT 33.5 % (36.0-47.0); HEMOGLOBIN 11.4 g/dL (12.0-15.5); LYMPH # 2.2 x10^3/uL (1.0-4.8); LYMPH % 29 % (24-48); MEAN CORPUSCULAR HEMOGLOBIN 32 pg (25-35); MEAN CORPUSCULAR HGB CONC 34 g/dL (31-37); MEAN CORPUSCULAR VOLUME 94 fL (79-100); MONO # 0.4 x10^3/uL (0.0-1.1); MONO % 6 % (0-9); NEUT # 4.6 x10^3uL (1.8-7.7); NEUT % 62 % (31-73); PLATELET COUNT 339 x10^3/uL (140-400); RED BLOOD COUNT 3.57 x10^6/uL (3.50-5.40); RED CELL DISTRIBUTION WIDTH 14.6 % (11.5-14.5); WHITE BLOOD COUNT 7.4 x10^3/uL (4.0-11.0)
[2018-01-11 21:00] LABS: CALCIUM 8.5 mg/dL (8.5-10.1); CREATININE 1.2 mg/dL (0.6-1.0); GFR 44.3
[2018-01-11 21:06] LABS: ALBUMIN 3.2 g/dL (3.4-5.0); TOTAL BILIRUBIN 0.3 mg/dL (0.2-1.0); TOTAL PROTEIN 6.5 g/dL (6.4-8.2)
--- NOTE | 2018-01-11 21:10 | RAD ---
Examination: Ultrasound left upper extremity venous duplex HISTORY: History of left anterior wrist swelling COMPARISON: None available TECHNIQUE: Grayscale, color Doppler 2-D, spectral waveform analysis of the left upper extremity venous system were performed. FINDINGS: The left internal jugular vein, subclavian vein, axillary vein, brachial, basilic, radial, ulnar veins, cephalic veins are patent. There is a heterogeneous soft tissue echogenicity identified in the lateral anterior wrist region without focal fluid collection. IMPRESSION: 1. No evidence of deep venous thrombosis left upper extremity. 2. Heterogeneous soft tissue echogenicity identified in the lateral anterior wrist region without focal fluid collection, uncertain etiology could be edema or soft tissue infection. Correlate clinically. Electronically signed by: Binu Medina MD (01/11/2018 9:07 PM) [facility]
--- NOTE | 2018-01-11 21:23 | PHYS DOC ---
Past Medical History Past Medical History: Anxiety, CAD, CVA, Depression, Diabetes-Type II, DVT, MA Additional Past Medical Histor: PARKINSON'S, GASTROPARESIS, CHRONIC BACK PAIN Past Surgical History: , Hysterectomy, Knee Replacement, Pacemaker, Tonsillectomy Additional Past Surgical Histo: CARDIAC STENT, BLADDER SX, BOWEL RESECTION, RIGHT SHOULDER SX, CATARACT SX Alcohol Use: None Drug Use: None Adult General Chief Complaint Chief Complaint: UPPER EXTREMITY PAIN HPI HPI Patient is a 72 year old f with cc of left arm sweling and redness. We will watch her scratching her wrists last night she woke up the area was red and then she noticed some streaking so she came to the emergency room right away she was concerned about a blood clot. She has had blood clots in her feet before Review of Systems Review of Systems Constitutional: Denies fever or chills [] Eyes: Denies change in visual acuity, redness, or eye pain [] HENT: Denies nasal congestion or sore throat [] Respiratory: Denies cough or shortness of breath [] Cardiovascular: No additional information not addressed in HPI [] : Denies dysuria or hematuria [] Neurologic: Denies headache, focal weakness or sensory changes [] Endocrine: Denies polyuria or polydipsia [] All other systems were reviewed and found to be within normal limits, except as documented in this note. Allergies Allergies Allergies Coded Allergies Type Severity Reaction Last Updated Verified Sulfa (Sulfonamide Antibiotics) Allergy Intermediate hives 11/01/17 Yes dexamethasone Allergy Intermediate 11/01/17 Yes neomycin Allergy Intermediate 11/01/17 Yes polymyxin B Allergy Intermediate 11/01/17 Yes Physical Exam Physical Exam Constitutional: Well developed, well nourished, no acute distress, non-toxic appearance. [] HENT: Normocephalic, atraumatic, bilateral external ears normal, oropharynx moist, no oral exudates, nose normal. [] Eyes: PERRLA, EOMI, conjunctiva normal, no discharge. [] Neck: Normal range of motion, no tenderness, supple, no stridor. [] Cardiovascular:Heart rate regular rhythm, no murmur [] Lungs & Thorax: Bilateral breath sounds clear to auscultation [] Abdomen: Bowel sounds normal, soft, no tenderness, no masses, no pulsatile masses. [] Skin: Patchy erythema on the forearm mild warmth and induration no fluctuance there is scant streaking noted. It does not go up to the elbow. Radial pulses intact the hand is warm sensation is intact. Extremities: No tenderness, no cyanosis, no clubbing, ROM intact, no edema. [] Neurologic: Alert and oriented X 3, normal motor function, normal sensory function, no focal deficits noted. [] Psychologic: Affect normal, judgement normal, mood normal. [] Current Patient Data Vital Signs Vital Signs Date Time Temp Pulse Resp B/P (MAP) Pulse Ox O2 Delivery O2 Flow Rate FiO2 01/11/18 20:06 99.0 69 20 138/85 (102) 97 Room Air 99.0 Lab Values Laboratory Tests Test 01/11/18 20:37 White Blood Count 7.4 x10^3/uL (4.0-11.0) Red Blood Count 3.57 x10^6/uL (3.50-5.40) Hemoglobin 11.4 g/dL (12.0-15.5) L Hematocrit 33.5 % (36.0-47.0) L Mean Corpuscular Volume 94 fL (79-100) Mean Corpuscular Hemoglobin 32 pg (25-35) Mean Corpuscular Hemoglobin Concent 34 g/dL (31-37) Red Cell Distribution Width 14.6 % (11.5-14.5) H Platelet Count 339 x10^3/uL (140-400) Neutrophils (%) (Auto) 62 % (31-73) Lymphocytes (%) (Auto) 29 % (24-48) Monocytes (%) (Auto) 6 % (0-9) Eosinophils (%) (Auto) 2 % (0-3) Basophils (%) (Auto) 1 % (0-3) Neutrophils # (Auto) 4.6 x10^3uL (1.8-7.7) Lymphocytes # (Auto) 2.2 x10^3/uL (1.0-4.8) Monocytes # (Auto) 0.4 x10^3/uL (0.0-1.1) Eosinophils # (Auto) 0.2 x10^3/uL (0.0-0.7) Basophils # (Auto) 0.1 x10^3/uL (0.0-0.2) Sodium Level 133 mmol/L (136-145) L Potassium Level 4.0 mmol/L (3.5-5.1) Chloride Level 97 mmol/L (98-107) L Carbon Dioxide Level 30 mmol/L (21-32) Anion Gap 6 (6-14) Blood Urea Nitrogen 15 mg/dL (7-20) Creatinine 1.2 mg/dL (0.6-1.0) H Estimated GFR (Cockcroft-Gault) 44.3 BUN/Creatinine Ratio 13 (6-20) Glucose Level 137 mg/dL (70-99) H Calcium Level 8.5 mg/dL (8.5-10.1) Total Bilirubin 0.3 mg/dL (0.2-1.0) Aspartate Amino Transferase (AST) 33 U/L (15-37) Alanine Aminotransferase (ALT) 9 U/L (14-59) L Alkaline Phosphatase 121 U/L (46-116) H Total Protein 6.5 g/dL (6.4-8.2) Albumin 3.2 g/dL (3.4-5.0) L Albumin/Globulin Ratio 1.0 (1.0-1.7) Laboratory Tests 01/11/18 20:37 Laboratory Tests 01/11/18 20:37 EKG EKG [] Radiology/Procedures Radiology/Procedures [] Impressions: IMPRESSION: 1. No evidence of deep venous thrombosis left upper extremity. 2. Heterogeneous soft tissue echogenicity identified in the lateral anterior wrist region without focal fluid collection, uncertain etiology could be edema or soft tissue infection. Correlate clinically. Electronically signed by: Binu Medina MD (01/11/2018 9:07 PM) [facility] Course & Med Decision Making Course & Med Decision Making Pertinent Labs and Imaging studies reviewed. (See chart for details) left wrist/forearm swelling and mild pain. u/s neg for dvt. probable early cellulitis, abx given., return prec discussed. no abscess or fluctuance clinically. rx keflex Dragon Disclaimer Dragon Disclaimer This electronic medical record was generated, in whole or in part, using a voice recognition dictation system. Departure Departure Impression: Primary Impression: Cellulitis Disposition: 01 HOME, SELF-CARE Condition: IMPROVED Referrals: DB BAILEY MD (PCP) Scripts Cephalexin (CEPHALEXIN) 500 Mg Tablet 1 TAB PO QID, #40 TAB Prov: ANTONIO WHYTE MD 01/11/18 ANTONIO WHYTE MD Jan 11, 2018 21:23
[2018-01-11 21:30] VITALS: BP 145/92
[2018-01-11] MEDS ORDERED: CEPH500T PO (21:32)
[2018-01-11] MEDS ORDERED: CEPHALEXIN 250 MG CAPSULE. PO STA (21:33)
== END 2018-01-11 21:53 | disposition home or self-care (01) ==
LOC: ER 19:52
DX: L03.114 Cellulitis of left upper limb (principal); E11.9 Type 2 diabetes mellitus without complications; I25.2 Old myocardial infarction; I25.10 Atherosclerotic heart disease of native coronary artery without angina pectoris; Z86.718 Personal history of other venous thrombosis and embolism; F32.9 Major depressive disorder, single episode, unspecified; G89.29 Other chronic pain; Z88.1 Allergy status to other antibiotic agents; Z88.2 Allergy status to sulfonamides; Z88.8 Allergy status to other drugs, medicaments and biological substances
CPT/HCPCS: 36415; 80053; 85025; 93971; 99285-25

== ENCOUNTER 2018-05-31 17:24 | Emergency (ER) | payer MEDICARE ==
[~2018-05-31] VITALS: Ht 165.1 cm; Wt 82.6 kg
[~2018-05-31 17:24] MED LIST changes: +CEPH500T PO; +LINA5TAB PO; -LINA5TAB4 PO; -OXYC-323 PO; +OXYC1TAB15 PO
[2018-05-31 19:28] VITALS: BP 166/81
--- NOTE | 2018-05-31 20:06 | PHYS DOC ---
Past Medical History Past Medical History: Anxiety, CAD, CVA, Depression, Diabetes-Type II, DVT, [place] Additional Past Medical Histor: PARKINSON'S, GASTROPARESIS, CHRONIC BACK PAIN Past Surgical History: , Hysterectomy, Knee Replacement, Pacemaker, Tonsillectomy Additional Past Surgical Histo: CARDIAC STENT, BLADDER SX, BOWEL RESECTION, RIGHT SHOULDER SX, CATARACT SX Additional Information: nonsmoker Alcohol Use: None Drug Use: None Adult General Chief Complaint Chief Complaint: OTHER COMPLAINTS HPI HPI Patient is a 73 YO F that is presenting with right middle finger swelling and pain. She reports that she was using a rolling cutter on Sunday while she was quilting and nicked her middle finger. It has gotten more painful and red since it happened and she went to see her PCP yesterday because she was worried it was infected. Her PCP prescribed topical antibiotics and told her that if it continued to get worse than she would need to come to the ED for IV antibiotics. She has a past medical history of diabetes and factor V Leiden, currently taking Plavix. She reports a history of neuropathy of the feet but no symptoms of the fingers until now she reports tingling in her affected hand. She denies radiation of the pain. She reports fever and one episode of emesis today, she denies having nausea or vomiting now. She doesn't know when her last tetanus shot was. She reports the pain as a 7/10. Review of Systems Review of Systems Constitutional: Denies chills, reports fever [] Eyes: Denies change in visual acuity, redness, or eye pain [] HENT: Denies nasal congestion or sore throat [] Respiratory: Denies cough or shortness of breath [] Cardiovascular: Denies chest pain or palpitations [] GI: Denies abdominal pain, nausea, diarrhea, reports vomiting [] : Denies dysuria or hematuria [] Integument: Denies rash, reports skin lesion on right middle finger [] Neurologic: Denies headache, focal weakness or sensory changes [] Compete systems were reviewed and found to be within normal limits, except as documented in this note. Current Medications Current Medications Current Medications Medications (Trade) Dose Ordered Sig/Carlene Start Time Stop Time Status Last Admin Dose Admin Clindamycin HCl (Cleocin) 450 mg 1X ONCE 05/31/18 20:30 05/31/18 20:33 DC 05/31/18 20:42 450 MG Neomycin/ Polymyxin/ Bacitracin (Triple Antibiotic Ointment) 1 pkt STK-MED ONCE 05/31/18 20:38 05/31/18 20:41 DC Allergies Allergies Allergies Coded Allergies Type Severity Reaction Last Updated Verified Sulfa (Sulfonamide Antibiotics) Allergy Intermediate hives 11/01/17 Yes dexamethasone Allergy Intermediate 11/01/17 Yes Physical Exam Physical Exam Constitutional: Well developed, well nourished, no acute distress, non-toxic appearance. [] HENT: Normocephalic, atraumatic, nose normal. [] Eyes: Conjunctiva normal, no discharge. [] Neck: Normal range of motion, no tenderness. [] Cardiovascular: Heart rate regular rhythm, no murmur [] Lungs & Thorax: Bilateral breath sounds clear to auscultation [] Abdomen: Soft, no tenderness. [] Skin: Warm, dry, mild erythema concerning for cellulitis noted to dorsum of distal right middle finger Extremities: Tenderness to palpation of the distal right middle finger, erythema and swelling with scabbed lesion over the posterior aspect of the distal right middle finger, no evidence of erythematous spread proximally, full ROM and strength of the right hand [] Neurologic: Alert and oriented X 3, no focal deficits noted. [] Psychologic: Affect normal, judgement normal, mood normal. [] Current Patient Data Vital Signs Vital Signs Date Time Temp Pulse Resp B/P (MAP) Pulse Ox O2 Delivery O2 Flow Rate FiO2 05/31/18 19:28 99.7 72 166/81 (109) 97 99.7 05/31/18 18:40 22 Room Air EKG EKG [] Radiology/Procedures Radiology/Procedures [] Course & Med Decision Making Course & Med Decision Making Pertinent Labs and Imaging studies reviewed. (See chart for details) Patient is a 73-year-old female that presented with right middle finger pain and swelling. She states that she cut her finger on Sunday and the redness and swelling got worse yesterday. Her PCP started her on topical antibiotics, she presented to the ED because the pain and swelling got worse today. We discussed the risks/benefits of IV antibiotics vs PO antibiotics because her PCP said that 's what she might need. She agreed to starting PO clindamycin because of allergy to sulfa drugs. Discussed wound care and the effects of that with her history of diabetes. Patient stable for discharge with outpatient follow-up with PCP. Discussed findings and plan with patient and family, who acknowledge understanding and agreement. Mike Disclaimer Mike Disclaimer This electronic medical record was generated, in whole or in part, using a voice recognition dictation system. Departure Departure Impression: Primary Impression: Cellulitis, finger Disposition: HOME, SELF-CARE Condition: STABLE Referrals: DB BAILEY MD (PCP) Patient Instructions: Cellulitis, [id number] Additional Instructions: Do not soak your wound. You may shower. Clean wound daily with soap and water. Change dressing 2 times daily. Use prescribed antibiotic ointment with each dressing change. Scripts Clindamycin Hcl (CLINDAMYCIN HCL) 300 Mg Capsule 1 CAP PO TID for Infection, #30 CAP Prov: PHYLLIS PHILLIPS DO 05/31/18 Problem Qualifiers Primary Impression: Cellulitis, finger Laterality: right Qualified Codes: L03.011 - Cellulitis of right finger PHYLLIS PHILLIPS DO May 31, 2018 20:06
[2018-05-31] MEDS ORDERED: CLIN300C8 PO (20:27)
[2018-05-31] MEDS ORDERED: CLINDAMYCIN HCL 150 MG CAPSULE. PO ONE (20:30)
[2018-05-31] MEDS ORDERED: NEOMY/BACITR/POLYMYXIN OINT PACKET. TP ONE ×3 (20:30→20:45)
== END 2018-05-31 20:45 | disposition home or self-care (01) ==
LOC: ER 17:24
DX: L03.011 Cellulitis of right finger (principal); R11.10 Vomiting, unspecified; R50.9 Fever, unspecified; I25.10 Atherosclerotic heart disease of native coronary artery without angina pectoris; E11.9 Type 2 diabetes mellitus without complications; Z86.718 Personal history of other venous thrombosis and embolism; I25.2 Old myocardial infarction; G89.29 Other chronic pain; Z86.73 Personal history of transient ischemic attack (TIA), and cerebral infarction without residual deficits; G20 Parkinson's disease; Z95.0 Presence of cardiac pacemaker; Z95.5 Presence of coronary angioplasty implant and graft; Z88.2 Allergy status to sulfonamides; Z88.8 Allergy status to other drugs, medicaments and biological substances
CPT/HCPCS: 99283

== ENCOUNTER 2018-07-24 16:49 | Inpatient (IN) | payer MEDICARE ==
[~2018-07-24] VITALS: Ht 152.4 cm; Wt 86.7 kg
[~2018-07-24 16:49] MED LIST changes: +CLIN300C8 PO; -MIRT30TA6 PO; +MIRT30TA93 PO
[2018-07-24] MEDS ORDERED: IPRATRPIUM/ALBUTEROL 0.5/2.5MG 3 ML NEBU. NEB ONE (17:00)
--- NOTE | 2018-07-24 17:05 | PHYS DOC ---
Past Medical History Past Medical History: Anxiety, CAD, CVA, Depression, Diabetes-Type II, DVT, [place] Additional Past Medical Histor: PARKINSON'S, GASTROPARESIS, CHRONIC BACK PAIN Past Surgical History: , Hysterectomy, Knee Replacement, Pacemaker, Tonsillectomy Additional Past Surgical Histo: CARDIAC STENT, BLADDER SX, BOWEL RESECTION, RIGHT SHOULDER SX, CATARACT SX Alcohol Use: None Drug Use: None Adult General HPI HPI Patient is a 73 year old FEMALE was brought here by EMS for evaluation of trouble breathing. EMS was called by her family due sudden onset of shortness of air. She has history of COPD. Her daughter stated that she was doing fine today, about 1 hour ago she went to the bathroom, suddenly she developed shaking chills fever then she started having severe trouble breathing, she started having muscle spasm in her chest. She was given DuoNeb treatment at home by her daughter but did not get better. Her daughter said her oxygen saturation dropped to about 45%, patient was acting confused, her skin was blue so she called EMS to come and take her to hospital. Patient was trying to use the bathroom but she was too weak to get up. EMS FOUND HER IN RESPIRATORY DISTRESS, THEY PUT HER ON BIPAP AND GAVE HER DUONEB TREATMENT. By the time she got here, patient appeared doing better. Review of Systems Review of Systems Constitutional: POSITIVE FOR fever or chills [] Eyes: Denies change in visual acuity, redness, or eye pain [] HENT: Denies nasal congestion or sore throat [] Respiratory: POSITIVE FOR cough or shortness of breath [] Cardiovascular: No additional information not addressed in HPI [] GI: Denies abdominal pain, nausea, vomiting, bloody stools or diarrhea [] : Denies dysuria or hematuria [] Musculoskeletal: Denies back pain or joint pain [] Integument: Denies rash or skin lesions [] Neurologic: positive for confusion, generalized weakness, no headache, focal weakness or sensory changes [] Endocrine: Denies polyuria or polydipsia [] All other systems were reviewed and found to be within normal limits, except as documented in this note. Current Medications Current Medications Current Medications Medications (Trade) Dose Ordered Sig/Carlene Start Time Stop Time Status Last Admin Dose Admin Acetaminophen (Tylenol) 650 mg PRN Q4HRS PRN 07/24/18 18:00 07/25/18 17:59 Albuterol/ Ipratropium (Duoneb) 3 ml RTQID 07/24/18 20:00 07/25/18 19:59 Azithromycin 250 ml @ 250 mls/hr 1X ONCE 07/24/18 17:15 07/24/18 18:14 Ceftriaxone Sodium (Rocephin) 1 gm 1X ONCE 07/24/18 17:15 07/24/18 17:18 DC Ibuprofen (Motrin) 800 mg 1X ONCE 07/24/18 17:15 07/24/18 17:18 DC 07/24/18 17:53 800 MG Methylprednisolone Sodium Succinate (SOLU-Medrol 125MG VIAL) 125 mg 1X ONCE 07/24/18 18:00 07/24/18 18:01 DC 07/24/18 17:53 125 MG Morphine Sulfate (Morphine Sulfate) 2 mg PRN Q2HR PRN 07/24/18 18:00 07/25/18 17:59 Ondansetron HCl (Zofran) 4 mg PRN Q8HRS PRN 07/24/18 18:00 07/25/18 17:59 Sodium Chloride 1,000 ml @ 75 mls/hr [id number] 07/24/18 17:54 07/25/18 17:53 Allergies Allergies Allergies Coded Allergies Type Severity Reaction Last Updated Verified Sulfa (Sulfonamide Antibiotics) Allergy Intermediate hives 11/01/17 Yes dexamethasone Allergy Intermediate 11/01/17 Yes Physical Exam Physical Exam Constitutional: Well developed, well nourished, IN MODERATE acute distress, toxic appearance. [] HENT: Normocephalic, atraumatic, bilateral external ears normal, oropharynx moist, no oral exudates, nose normal. [] Eyes: PERRLA, EOMI, conjunctiva normal, no discharge. [] Neck: Normal range of motion, no tenderness, supple, no stridor. [] Cardiovascular: SINUS TACHYCARDIA, Regular rhythm, no murmur [] Lungs & Thorax: SEVERE WHEEZING DIFFUSEDLY, TACHYPNIA. Abdomen: Bowel sounds normal, soft, no tenderness, no masses, no pulsatile masses. [] Skin: Warm, dry, no erythema, no rash. [] Back: No tenderness, no CVA tenderness. [] Extremities: No tenderness, no cyanosis, no clubbing, ROM intact, no edema. [] Neurologic: Alert, AWAKE BUT CONFUSED, TREMOR AND SHAKY, normal motor function , normal sensory function, no focal deficits noted. [] Psychologic: Affect normal, judgement normal, mood normal. [] Current Patient Data Vital Signs Vital Signs Date Time Temp Pulse Resp B/P (MAP) Pulse Ox O2 Delivery O2 Flow Rate FiO2 07/24/18 17:38 95 Nasal Cannula 2.0 Lab Values Laboratory Tests Test 07/24/18 17:11 07/24/18 17:40 White Blood Count 18.8 x10^3/uL (4.0-11.0) H Red Blood Count 3.90 x10^6/uL (3.50-5.40) Hemoglobin 11.8 g/dL (12.0-15.5) L Hematocrit 35.9 % (36.0-47.0) L Mean Corpuscular Volume 92 fL (79-100) Mean Corpuscular Hemoglobin 30 pg (25-35) Mean Corpuscular Hemoglobin Concent 33 g/dL (31-37) Red Cell Distribution Width 14.6 % (11.5-14.5) H Platelet Count 354 x10^3/uL (140-400) Neutrophils (%) (Auto) 87 % (31-73) H Lymphocytes (%) (Auto) 6 % (24-48) L Monocytes (%) (Auto) 7 % (0-9) Eosinophils (%) (Auto) 0 % (0-3) Basophils (%) (Auto) 1 % (0-3) Neutrophils # (Auto) 16.3 x10^3uL (1.8-7.7) H Lymphocytes # (Auto) 1.2 x10^3/uL (1.0-4.8) Monocytes # (Auto) 1.2 x10^3/uL (0.0-1.1) H Eosinophils # (Auto) 0.0 x10^3/uL (0.0-0.7) Basophils # (Auto) 0.1 x10^3/uL (0.0-0.2) Platelet Estimate Pending Prothrombin Time 12.6 SEC (11.7-14.0) Prothrombin Time INR 1.0 (0.8-1.1) Sodium Level 127 mmol/L (136-145) L Potassium Level 5.4 mmol/L (3.5-5.1) H Chloride Level 88 mmol/L (98-107) L Carbon Dioxide Level 32 mmol/L (21-32) Anion Gap 7 (6-14) Blood Urea Nitrogen 22 mg/dL (7-20) H Creatinine 0.9 mg/dL (0.6-1.0) Estimated GFR (Cockcroft-Gault) 61.5 BUN/Creatinine Ratio 24 (6-20) H Glucose Level 136 mg/dL (70-99) H Lactic Acid Level 1.9 mmol/L (0.4-2.0) Calcium Level 8.7 mg/dL (8.5-10.1) Magnesium Level 1.6 mg/dL (1.8-2.4) L Total Bilirubin 0.2 mg/dL (0.2-1.0) Aspartate Amino Transferase (AST) 24 U/L (15-37) Alanine Aminotransferase (ALT) 21 U/L (14-59) Alkaline Phosphatase 112 U/L (46-116) Creatine Kinase 99 U/L (26-192) Creatine Kinase MB (Mass) 2.0 ng/mL (0.0-3.6) Creatine Kinase MB Relative Index 2.0 % (0-4) Troponin I Quantitative < 0.017 ng/mL (0.000-0.055) OY-Sfd-F-Type Natriuretic Peptide 995 pg/mL (0-124) H Total Protein 7.5 g/dL (6.4-8.2) Albumin 3.2 g/dL (3.4-5.0) L Albumin/Globulin Ratio 0.7 (1.0-1.7) L Lipase 101 U/L (73-393) O2 Saturation 95 % (92-99) Arterial Blood pH 7.46 (7.35-7.45) H Arterial Blood pCO2 at Patient Temp 39 mmHg (35-46) Arterial Blood pO2 at Patient Temp 71 mmHg (65-108) Arterial Blood HCO3 27 mmol/L (21-28) Arterial Blood Base Excess 3 mmol/L (-3-3) FiO2 28 Laboratory Tests 07/24/18 17:11 Laboratory Tests 07/24/18 17:11 EKG EKG EKG WAS READ BY THIS PHYSICIAN AT 1753, RATE OF 93 BPM, NO STEMI. SINUS RHYTHM. Radiology/Procedures Radiology/Procedures [] Course & Med Decision Making Course & Med Decision Making Pertinent Labs and Imaging studies reviewed. (See chart for details) [] Dragon Disclaimer Dragon Disclaimer This electronic medical record was generated, in whole or in part, using a voice recognition dictation system. Departure Departure Impression: Primary Impression: COPD exacerbation Additional Impressions: CAP (community acquired pneumonia) Fever Disposition: ADMITTED INPATIENT Admitting Physician: Mary Anne Jeffrey Condition: IMPROVED Referrals: DB BAILEY MD (PCP) Problem Qualifiers DB NOVA DO Jul 24, 2018 17:05
[2018-07-24] MEDS ORDERED: IBUPROFEN 400 MG TABLET. PO ONE (17:15)
[2018-07-24] MEDS ORDERED: IV NORMAL SALINE 1000ML BAG 1,000 ML IV ONE (17:15)
[2018-07-24] MEDS ORDERED: cefTRIAXone IV Push 1 GM VIAL. IVP ONE (17:15)
[2018-07-24] MEDS ORDERED: ACETAMINOPHEN 500 MG TABLET PO ONE (17:15)
[2018-07-24] MEDS ORDERED: AZITHRMYCN 500MG IVPB FOR OMNI 250 ML IV ONE (17:15)
[2018-07-24 17:25] LABS: BASO # 0.1 x10^3/uL (0.0-0.2); BASO % 1 % (0-3); EOS % 0 % (0-3); HEMATOCRIT 35.9 % (36.0-47.0); HEMOGLOBIN 11.8 g/dL (12.0-15.5); LYMPH # 1.2 x10^3/uL (1.0-4.8); LYMPH % 6 % (24-48); MEAN CORPUSCULAR HEMOGLOBIN 30 pg (25-35); MEAN CORPUSCULAR HGB CONC 33 g/dL (31-37); MEAN CORPUSCULAR VOLUME 92 fL (79-100); MONO # 1.2 x10^3/uL (0.0-1.1); MONO % 7 % (0-9); NEUT # 16.3 x10^3uL (1.8-7.7); NEUT % 87 % (31-73); PLATELET COUNT 354 x10^3/uL (140-400); RED CELL DISTRIBUTION WIDTH 14.6 % (11.5-14.5); WHITE BLOOD COUNT 18.8 x10^3/uL (4.0-11.0)
[2018-07-24 17:34] LABS: PROTHROMBIN TIME PATIENT 12.6 SEC (11.7-14.0)
[2018-07-24 17:38] LABS: CALCIUM 8.7 mg/dL (8.5-10.1); CREATININE 0.9 mg/dL (0.6-1.0); GFR 61.5; POTASSIUM 5.4 mmol/L (3.5-5.1)
[2018-07-24 17:43] LABS: ALBUMIN 3.2 g/dL (3.4-5.0); ALBUMIN/GLOBULIN RATIO 0.7 (1.0-1.7); MAGNESIUM 1.6 mg/dL (1.8-2.4); TOTAL BILIRUBIN 0.2 mg/dL (0.2-1.0); TOTAL PROTEIN 7.5 g/dL (6.4-8.2)
[2018-07-24 17:43] LABS: BASE EXCESS ABG 3 mmol/L (-3-3); HCO3 ABG 27 mmol/L (21-28); PCO2 ABG 39 mmHg (35-46); PO2 ABG 71 mmHg (65-108); SAT O2 ABG 95 % (92-99)
[2018-07-24 17:46] LABS: FIO2 ABG 28
[2018-07-24] MEDS ORDERED: ONDANSETRON PF 4 MG/2 ML VIAL. IV PRN (18:00)
[2018-07-24] MEDS ORDERED: ACETAMINOPHEN 325 MG TABLET. PO PRN (18:00)
[2018-07-24] MEDS ORDERED: methylPREDNISolone SOD SUCC PF 125 MG/2 ML VIAL. IV ONE (18:00)
[2018-07-24] MEDS ORDERED: MORPHINE SULFATE 2 MG/ML VIAL. IV PRN (18:00)
[2018-07-24 18:13] LABS: INFLUENZA A PATIENT NEGATIVE (NEGATIVE); INFLUENZA B PATIENT NEGATIVE (NEGATIVE)
--- NOTE | 2018-07-24 18:27 | RAD ---
CT HEAD WO CONTRAST History: Headache, confusion Comparison: November 05, 2017 Technique: Noncontrast CT imaging was performed of the head. Exposure: One or more of the following individualized dose reduction techniques were utilized for this examination: 1. Automated exposure control 2. Adjustment of the mA and/or kV according to patient size 3. Use of iterative reconstruction technique. Findings: No acute extra-axial or parenchymal hemorrhage is identified. There is no significant intra-axial mass effect, midline shift, or extra-axial fluid collection. The noel-white differentiation of the major vascular territories is preserved. Ventricular size is unchanged, within normal limits given mild supratentorial atrophy. There is scattered multifocal moderate ill-defined low-density of the supratentorial parenchyma bilaterally as seen previously. The mastoid air cells and the visualized paranasal sinuses are aerated. No acute calvarial abnormality is identified. There is again what may represent a small osteoma along the outer table of left parietal calvarium. Impression: 1. No acute intracranial abnormality is identified. There is scattered ill-defined low-density of the supratentorial parenchyma bilaterally as seen previously, more likely due to chronic microvascular ischemic disease in a patient this age. There is mild supratentorial atrophy. Electronically signed by: Jay Mcmahon MD (07/24/2018 6:24 PM) [facility]
[2018-07-24 18:44] LABS: % ATYL 3 % (0-0); % BANDS 18 % (0-9); % LYMPHS 5 % (24-48); % MONOS 5 % (0-10); % SEGS 69 % (35-66); PLT ESTIMATE ADEQUATE (ADEQUATE)
[2018-07-24 18:53] LABS: BILIRUBIN,URINE NEGATIVE (NEG); CLARITY,URINE CLOUDY; COLOR,URINE YELLOW; NITRITE,URINE NEGATIVE (NEG); PROTEIN,URINE 100 mg/dL (NEG-TRACE); UROBILINOGEN,URINE 0.2 mg/dL (0.2 mg/dL)
[2018-07-24 19:04] LABS: BACTERIA,URINE 0 /HPF (0-FEW); RBC,URINE 0 /HPF (0-2); SQUAMOUS EPITHELIAL CELL,UR FEW /LPF
[2018-07-24] MEDS: IV NORMAL SALINE 1000ML BAG 1,000 ML IV SCH (19:50)
[2018-07-24 21:24] VITALS: BP 152/49
[2018-07-24] MEDS ORDERED: TEMAZEPAM 15 MG CAPSULE PO PRN (22:15)
[2018-07-24] MEDS: IPRATRPIUM/ALBUTEROL 0.5/2.5MG 3 ML NEBU. NEB SCH (22:26)
[2018-07-24] MEDS ORDERED: MELO7.5T29 PO (22:46)
[2018-07-24] MEDS ORDERED: GABA300C18 PO (22:46)
[2018-07-24] MEDS ORDERED: BUSP15TA PO (22:46)
[2018-07-24] MEDS ORDERED: DILT180C64 PO (22:46)
[2018-07-24] MEDS ORDERED: OXYC10TA46 PO (22:46)
[2018-07-24] MEDS ORDERED: CLOP75TA PO (22:46)
[2018-07-24 23:12] VITALS: BP 117/48
[2018-07-24] MEDS ORDERED: CARBIDOPA/LEVODOPA 25/100MG TABLET PO SCH (23:30)
[2018-07-24] MEDS: ZOLPIDEM 5 MG TABLET. PO SCH ×2 (23:30→23:48)
[2018-07-24] MEDS ORDERED: PRIMIDONE 50 MG TABLET PO SCH (23:30)
[2018-07-24] MEDS: LORazepam 1 MG TABLET PO SCH (23:48)
[2018-07-24] MEDS: MIRTAZAPINE 15 MG TABLET PO SCH (23:49)
[2018-07-24] MEDS: DULoxetine HCL 30 MG CAPSULE.DR PO SCH (23:49)
[2018-07-24] MEDS: rOPINIRole 1 MG TABLET. PO SCH (23:50)
[2018-07-24] MEDS: CYCLOBENZAPRINE 10 MG TABLET. PO SCH (23:51)
[2018-07-24] MEDS: GABAPENTIN 300 MG CAPSULE. PO SCH (23:51)
[2018-07-24] MEDS: CARBIDOPA/LEVODOPA 25/100MG TABLET PO SCH (23:52)
[2018-07-24] MEDS: busPIRone 5 MG TABLET. PO SCH (23:56)
[2018-07-24] MEDS: DONEPEZIL HCL 10 MG TABLET. PO SCH (23:56)
[2018-07-24] MEDS: CARVEDILOL 12.5 MG TABLET. PO SCH (23:58)
--- NOTE | 2018-07-25 00:36 | NUR ---
Scheduled HS pills scanned and saved prior pt actually took the pills. this nurse asked the pt first if she normally takes many pills at night before giving all the pills to her and she said "yes", rechecked again med list making sure the right dosages of all the meds, noted primidone was mistakenly entered the wrong dose according to pt med list that was provided by daughter Dinora via phone, it says primidone 50 mg TID, corrected the error dose and wasted primidone 2 tabs with other RN. Tellyien also not given d/t time, it was past midnight and noted pt was sleepy. Will continue monitor pt.
[2018-07-25 03:00] VITALS: BP 126/48
[2018-07-25] MEDS: LEVOTHYROXINE 150 MCG TABLET PO SCH (06:10)
[2018-07-25] MEDS: IV NORMAL SALINE 1000ML BAG 1,000 ML IV SCH (06:12)
--- NOTE | 2018-07-25 06:56 | EKG ---
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
[2018-07-25] MEDS ORDERED: NON FORMULARY ITEM (Levothyroxine Sodium 1 TAB) PO SCH (07:00)
[2018-07-25 07:20] VITALS: BP 132/43
[2018-07-25] MEDS: IPRATRPIUM/ALBUTEROL 0.5/2.5MG 3 ML NEBU. NEB SCH ×4 (07:44→20:40)
--- NOTE | 2018-07-25 08:17 | RAD ---
Indication:ER PATIENT. SHORTNESS OF AIR. Hx HTN, DIABETES, COPD, PACEMAKER.. TECHNIQUE:Portable AP chest X-ray COMPARISON:None FINDINGS: Right chest wall pacemaker is seen with its lead projecting over the heart. Heart is normal in size. Prominence of bilateral central bronchial markings. No focal consolidation. No pneumothorax or pleural effusion. Visualized bony thorax is within limits. IMPRESSION: Findings suggests mild bronchitis. Electronically signed by: Joe Gilbert DO (07/25/2018 8:14 AM) [facility]
[2018-07-25] MEDS: CARBIDOPA/LEVODOPA 25/100MG TABLET PO SCH ×2 (08:19→21:12)
[2018-07-25] MEDS: CARVEDILOL 12.5 MG TABLET. PO SCH ×2 (08:21→16:48)
[2018-07-25] MEDS: metFORMIN 500 MG TABLET PO SCH ×2 (08:21→16:47)
[2018-07-25] MEDS: GABAPENTIN 300 MG CAPSULE. PO SCH ×3 (08:21→21:11)
[2018-07-25] MEDS: DULoxetine HCL 30 MG CAPSULE.DR PO SCH ×2 (08:21→21:14)
[2018-07-25] MEDS: PANTOPRAZOLE 40 MG TABLET.DR. PO SCH (08:21)
[2018-07-25] MEDS: rOPINIRole 1 MG TABLET. PO SCH ×3 (08:21→21:10)
[2018-07-25] MEDS: CYCLOBENZAPRINE 10 MG TABLET. PO SCH ×3 (08:22→21:13)
[2018-07-25] MEDS: oxyCODONE ER 10 MG TAB.ER.12H PO SCH ×3 (08:22→21:13)
[2018-07-25] MEDS: ASPIRIN ENTERIC COATED 81 MG TABLET.DR. PO SCH (08:23)
[2018-07-25] MEDS: busPIRone 5 MG TABLET. PO SCH ×3 (08:23→21:13)
[2018-07-25] MEDS: PRIMIDONE 50 MG TABLET PO SCH ×3 (08:23→21:13)
[2018-07-25] MEDS: MELOXICAM 7.5 MG TABLET PO SCH (08:23)
--- NOTE | 2018-07-25 08:23 | PDOC1 ---
History and Physical Date of Admission Date of Admission DATE: 07/25/18 TIME: 08:22 Identification/Chief Complaint Chief Complaint Shortness of breath Source Source: Chart review, Patient History of Present Illness History of Present Illness 73 year old F w/ PMHx CAD w/ stent, PA, HTN, HLD, COPD, pneumonia, CVA, Parkinsons, seizures, DM, hypothyroidism, depression, anxiety, GERD, fatty liver , diverticulitis, Factor V Leiden, DVT, pacemaker,right hemicolectomy and JEANMARIE was brought here by EMS for evaluation of trouble breathing. EMS was called by her family due sudden onset of shortness of breath. Her daughter stated that she was doing fine today, about 1 hour ago she went to the bathroom, suddenly she developed shaking chills fever then she started having severe trouble breathing, she started having muscle spasm in her chest. She was given DuoNeb treatment at home by her daughter but did not get better. Her daughter said her oxygen saturation dropped to about 45%, patient was acting confused, her skin was blue so she called EMS to come and take her to hospital. Patient was trying to use the bathroom but she was too weak to get up. Was placed on BIPAP and given duonebs by EMS initially. Mag 1.6, Sodium 127, had leukocytosis and left sided opacity on CXR concerning for community acquired pneumonia, admitted for further care. Seen bedside off BIPAP she is actually not on O2 currently after her first 12 hours in the hospital, but still feels short of breath, has a cough. Past Medical History Cardiovascular: CAD, HTN CENTRAL NERVOUS SYSTEM: CVA GI: Constipation Psych: Anxiety, Other Musculoskeletal: low back pain Renal/: Urinary Incontinence Endocrine: Diabetes, Hypothyroidism Past Surgical History Past Surgical History: Cataract Removal, , Total knee replacement, Hysterectomy, Colon Resection, Other Family History Family History: No Significant, Diabetes, Other Social History ALCOHOL: none Drugs: None Current Problem List Problem List Problems Medical Problems: (1) CAP (community acquired pneumonia) Status: Acute (2) COPD exacerbation Status: Acute (3) Fever Status: Acute Current Medications Current Medications Current Medications Albuterol/ Ipratropium (Duoneb) 3 ml 1X ONCE NEB Last administered on at 17:38; Start 07/24/18 at 17:00; Stop 07/24/18 at 17:04; Status DC Sodium Chloride 1,000 ml @ 1,000 mls/hr 1X ONCE IV Last administered on at 17:54; Start 07/24/18 at 17:15; Stop 07/24/18 at 18:14; Status DC Ceftriaxone Sodium (Rocephin) 1 gm 1X ONCE IVP Last administered on 07/24/18at 18:30; Start 07/24/18 at 17:15; Stop 07/24/18 at 17:18; Status DC Azithromycin 250 ml @ 250 mls/hr 1X ONCE IV Last administered on 07/24/18at 18 :33; Start 07/24/18 at 17:15; Stop 07/24/18 at 18:14; Status DC Acetaminophen (Tylenol) 1,000 mg 1X ONCE PO Last administered on 07/24/18at 17: 53; Start 07/24/18 at 17:15; Stop 07/24/18 at 17:18; Status DC Ibuprofen (Motrin) 800 mg 1X ONCE PO Last administered on 07/24/18at 17:53; Start 07/24/18 at 17:15; Stop 07/24/18 at 17:18; Status DC Methylprednisolone Sodium Succinate (SOLU-Medrol 125MG VIAL) 125 mg 1X ONCE IV Last administered on 07/24/18at 17:53; Start 07/24/18 at 18:00; Stop 07/24/18 at 18:01; Status DC Ondansetron HCl (Zofran) 4 mg PRN Q8HRS PRN IV NAUSEA/VOMITING; Start 07/24/18 at 18:00; Stop 07/25/18 at 17:59 Morphine Sulfate (Morphine Sulfate) 2 mg PRN Q2HR PRN IV PAIN; Start 07/24/18 at 18:00; Stop 07/25/18 at 17:59 Sodium Chloride 1,000 ml @ 75 mls/hr [id number] IV Last administered on at 06:12; Start 07/24/18 at 17:54; Stop 07/25/18 at 17:53 Acetaminophen (Tylenol) 650 mg PRN Q4HRS PRN PO FEVER; Start 07/24/18 at 18:00 ; Stop 07/25/18 at 17:59 Albuterol/ Ipratropium (Duoneb) 3 ml RTQID NEB Last administered on 07/25/18at 07:44; Start 07/24/18 at 20:00; Stop 07/25/18 at 19:59 Temazepam (Restoril) 15 mg PRN QHS PRN PO INSOMNIA; Start 07/24/18 at 22:15 Aspirin (Ecotrin) 81 mg DAILY PO ; Start 07/25/18 at 09:00 Carbidopa/Levodopa (Sinemet 25/100) 1 tab Q12HR PO ; Start 07/24/18 at 23:30; Stop 07/24/18 at 23:47; Status DC Carvedilol (Coreg) 12.5 mg BIDWMEALS PO Last administered on 07/24/18at 23:58; Start 07/24/18 at 23:30 Cyclobenzaprine HCl (Flexeril) 10 mg TID PO Last administered on 07/24/18at 23: 51; Start 07/24/18 at 23:30 Gabapentin (Neurontin) 300 mg TID PO Last administered on 07/24/18at 23:51; Start 07/24/18 at 23:30 Lorazepam (Ativan) 0.5 mg QID PO Last administered on 07/24/18at 23:48; Start at 23:30 Metoclopramide HCl (Reglan) 10 mg PRN QID PRN PO NAUSEA; Start 07/24/18 at 23: 15 Oxycodone HCl (OxyCONTIN) 10 mg TID PO ; Start 07/25/18 at 09:00 Zolpidem Tartrate (Ambien) 5 mg QHS PO ; Start 07/24/18 at 23:30 Non-Formulary Medication (Buspirone Hcl ) 1 tab TID PO ; Start 07/25/18 at 09:00 ; Status UNV Non-Formulary Medication (Diltiazem Hcl (Cartia Xt)) 180 mg DAILY PO ; Start at 09:00; Status UNV Non-Formulary Medication (Donepezil Hcl ) 1 tab DAILY PO ; Start 07/25/18 at 09: 00; Status UNV Duloxetine HCl (Cymbalta) 60 mg BID PO Last administered on 07/24/18at 23:49; Start 07/24/18 at 23:30 Pantoprazole Sodium (Protonix) 40 mg DAILYAC PO ; Start 07/25/18 at 07:30 Non-Formulary Medication (Levothyroxine Sodium ) 1 tab DAILY07 PO ; Start at 07:00; Status UNV Non-Formulary Medication (Lidocaine (Lidoderm)) 1 patch HS TP ; Start 07/25/18 at 21:00; Status UNV Non-Formulary Medication (Meloxicam ) 7.5 mg DAILY PO ; Start 07/25/18 at 09:00 ; Status UNV Non-Formulary Medication (Metformin Hcl ) 1 tab BID PO ; Start 07/25/18 at 09:00 ; Status UNV Mirtazapine (Remeron) 30 mg HS PO Last administered on 07/24/18at 23:49; Start 07/24/18 at 23:30 Primidone (Mysoline) 100 mg TID PO ; Start 07/24/18 at 23:30; Stop 07/25/18 at 00:10; Status DC Ropinirole HCl (Requip) 1 mg TID PO Last administered on 07/24/18at 23:50; Start 07/24/18 at 23:30 Levothyroxine Sodium (Synthroid) 150 mcg DAILY06 PO Last administered on at 06:10; Start 07/25/18 at 06:00 Buspirone HCl (Buspar) 5 mg TID PO Last administered on 07/24/18at 23:56; Start 07/24/18 at 23:30 Diltiazem HCl (Cardizem 24hr Cd) 180 mg DAILY PO ; Start 07/25/18 at 09:00 Donepezil HCl (Aricept) 10 mg QHS PO Last administered on 07/24/18at 23:56; Start 07/24/18 at 23:30 Meloxicam (Mobic) 7.5 mg DAILY PO ; Start 07/25/18 at 09:00 Metformin HCl (Glucophage) 500 mg BIDWMEALS PO ; Start 07/25/18 at 08:00 Primidone (Mysoline) 100 mg TID PO ; Start 07/25/18 at 09:00; Status UNV Ropinirole HCl (Requip) 1 mg TID PO ; Start 07/25/18 at 09:00; Status UNV Mirtazapine (Remeron) 30 mg QHS PO ; Start 07/25/18 at 21:00; Status UNV Duloxetine HCl (Cymbalta) 60 mg DAILY PO ; Start 07/25/18 at 09:00; Status UNV Carbidopa/Levodopa (Sinemet 25/100) 2.5 tab Q12HR PO Last administered on at 23:52; Start 07/24/18 at 23:30 Primidone (Mysoline) 50 mg TID PO ; Start 07/25/18 at 09:00 Lidocaine (Lidoderm) 1 patch DAILY TD ; Start 07/25/18 at 09:00 Miscellaneous (Lidoderm Patch Removal) 1 ea QHS MC ; Start 07/25/18 at 21:00 Active Scripts Active Clindamycin Hcl 300 Mg Capsule 1 Cap PO TID Cephalexin 500 Mg Tablet 1 Tab PO QID Reglan (Metoclopramide Hcl) 10 Mg Tablet 1 Tab PO QID PRN Culturelle (Lactobacillus Rhamnosus Gg) 1 Each Cap.sprink 1 Cap PO BID Clopidogrel (Clopidogrel Bisulfate) 75 Mg Tablet 75 Mg PO [id number] Reported Buspirone Hcl 15 Mg Tablet 1 Tab PO TID Meloxicam 7.5 Mg Tablet 7.5 Mg PO DAILY Gabapentin (Gabapentin) 300 Mg Capsule 300 Mg PO TID Oxycontin (Oxycodone HCl) 10 Mg Tab.er.12h 10 Mg PO TID Cartia Xt (Diltiazem Hcl) 180 Mg Cap.er.24h 180 Mg PO DAILY Levothyroxine Sodium 150 Mcg Tablet 1 Tab PO DAILY07 Ropinirole Hcl 1 Mg Tablet 1 Mg PO TID Donepezil Hcl 10 Mg Tablet 1 Tab PO DAILY Lorazepam 1 Mg Tablet 0.5 Mg PO QID Duloxetine Hcl 60 Mg Capsule.dr 60 Mg PO BID Cyclobenzaprine Hcl 10 Mg Tablet 1 Tab PO BID Lidoderm (Lidocaine) 700 Mg Adh..patch 1 Patch TP HS Aspir 81 (Aspirin) 81 Mg Tablet.dr 1 Tab PO DAILY Carbidopa-Levodopa 25-100 Tab (Carbidopa/Levodopa) 1 Each Tablet 1 Each PO Q12HR Mirtazapine 30 Mg Tab.rapdis 30 Mg PO HS Zolpidem Tartrate 5 Mg Tablet 1 Tab PO QHS Coreg (Carvedilol) 12.5 Mg Tablet 1 Tab PO BID . Metformin Hcl 500 Mg Tablet 1 Tab PO BID Nexium Capsule (Esomeprazole Magnesium) 40 Mg Capsule.dr 40 Mg PO DAILY Allergies Allergies: Coded Allergies: Sulfa (Sulfonamide Antibiotics) (Verified Allergy, Intermediate, hives, ) dexamethasone (Verified Allergy, Intermediate, 11/01/17) ROS General: YES: Fatigue, Malaise, Appetite; No: Chills, Night Sweats, Other PSYCHOLOGICAL ROS: No: Anxiety, Behavioral Disorder, Concentration difficultie , Decreased libido, Depression, Disorientation, Hallucinations, Hostility, Irritablity, Memory difficulties, Mood Swings, Obsessive thoughts, Physical abuse, Sexual abuse, Sleep disturbances, Suicidal ideation, Other Eyes: No Blurry vision, No Decreased vision, No Double vision, No Dry eyes, No Excessive tearing, No Eye Pain, No Itchy Eyes, No Loss of vision, No Photophobia , No Scotomata, No Uses contacts, No Uses glasses, No Other HEENT: No: Heacaches, Visual Changes, Hearing change, Nasal congestion, Nasal discharge, Oral lesions, Sinus pain, Sore Throat, Epistaxis, Sneezing, Snoring, Tinnitus, Vertigo, Vocal changes, Other ALLERGY AND IMMUNOLOGY: No: Hives, Insect Bite Sensitivity, Itchy/Watery Eyes, Nasal Congestion, Post Nasal Drip, Seasonal Allergies, Other Hematological and Lymphatic: No: Bleeding Problems, Blood Clots, Blood Transfusions, Brusing, Night Sweats, Pallor, Swollen Lymph Nodes, Other ENDOCRINE: No: Breast Changes, Galactorrhea, Hair Pattern Changes, Hot Flashes , Malaise/lethargy, Mood Swings, Palpitations, Polydipsia/polyuria, Skin Changes , Temperature Intolerance, Unexpected Weight Changes, Other Breast: No New/Changing Breast Lumps, No Nipple changes, No Nipple discharge, No Other Respiratory: YES: Cough, Shortness of breath, SOB with excertion, Sputum Changes, Tachypnea, Wheezing; No: Hemoptysis, Orthopnea, Pleuritic Pain, Stridor, Other Cardiovascular: No Chest Pain, No Palpitations, No Orthopnea, No Paroxysmal Noc. Dyspnea, No Edema, No Lt Headedness, No Other Gastrointestinal: Yes Nausea; No Vomiting, No Abdominal Pain, No Diarrhea, No Constipation, No Melena, No Hematochezia, No Other Genitourinary: No Dysuria, No Frequency, No Incontinence, No Hematuria, No Retention, No Discharge, No Urgency, No Pain, No Flank Pain, No Other, No , No , No , No , No , No , No Musculoskeletal: Yes Gait Disturbance; No Joint Pain, No Joint Stiffness, No Joint Swelling, No Muscle Pain, No Muscular Weakness, No Pain In:, No Swelling In:, No Other Neurological: Yes Confusion, Yes Dizziness, Yes Gait Disturbance, Yes Impaired Coord/balance; No Behavorial Changes, No Bowel/Bladder ControlChng, No Headaches, No Memory Loss, No Numbness/Tingling, No Seizures, No Speech Problems, No Tremors, No Visual Changes, No Weakness, No Other Skin: No Dry Skin, No Eczema, No Hair Changes, No Lumps, No Mole Changes, No Mottling, No Nail Changes, No Pruritus, No Rash, No Skin Lesion Changes, No Other, No Acne Physical Exam General: Alert, Cooperative, mild distress HEENT: Atraumatic, PERRLA, EOMI, Mucous membr. moist/pink Lungs: Other (left rhonchi, scattered wheezes) Heart: S1S2, RRR, no gallops, no murmurs Abdomen: Normal bowel sounds, Soft, No tenderness, No hepatosplenomegaly, No masses Extremities: No clubbing, No cyanosis, No edema, Normal pulses, No tenderness/ swelling Skin: No rashes, No breakdown, No significant lesion Neuro: Normal gait, Normal speech, Strength at 5/5 X4 ext, Normal tone, Sensation intact, Cranial nerves 3-12 NL, Reflexes 2+ Psych/Mental Status: Mental status NL, Mood NL Vitals Vitals Vital Signs Date Time Temp Pulse Resp B/P (MAP) Pulse Ox O2 Delivery O2 Flow Rate FiO2 07/25/18 07:44 100 Nasal Cannula 1.0 07/25/18 07:20 97.6 72 18 132/43 (72) 97.6 Labs Labs Laboratory Tests Test 07/24/18 17:11 07/24/18 17:35 07/24/18 17:40 07/24/18 18:40 White Blood Count 18.8 x10^3/uL (4.0-11.0) Red Blood Count 3.90 x10^6/uL (3.50-5.40) Hemoglobin 11.8 g/dL (12.0-15.5) Hematocrit 35.9 % (36.0-47.0) Mean Corpuscular Volume 92 fL (79-100) Mean Corpuscular Hemoglobin 30 pg (25-35) Mean Corpuscular Hemoglobin Concent 33 g/dL (31-37) Red Cell Distribution Width 14.6 % (11.5-14.5) Platelet Count 354 x10^3/uL (140-400) Neutrophils (%) (Auto) 87 % (31-73) Lymphocytes (%) (Auto) 6 % (24-48) Monocytes (%) (Auto) 7 % (0-9) Eosinophils (%) (Auto) 0 % (0-3) Basophils (%) (Auto) 1 % (0-3) Neutrophils # (Auto) 16.3 x10^3uL (1.8-7.7) Lymphocytes # (Auto) 1.2 x10^3/uL (1.0-4.8) Monocytes # (Auto) 1.2 x10^3/uL (0.0-1.1) Eosinophils # (Auto) 0.0 x10^3/uL (0.0-0.7) Basophils # (Auto) 0.1 x10^3/uL (0.0-0.2) Segmented Neutrophils % 69 % (35-66) Band Neutrophils % 18 % (0-9) Lymphocytes % 5 % (24-48) Atypical Lymphocytes % (Manual) 3 % (0-0) Monocytes % 5 % (0-10) Platelet Estimate Adequate (ADEQUATE) Prothrombin Time 12.6 SEC (11.7-14.0) Prothromb Time International Ratio 1.0 (0.8-1.1) Sodium Level 127 mmol/L (136-145) Potassium Level 5.4 mmol/L (3.5-5.1) Chloride Level 88 mmol/L (98-107) Carbon Dioxide Level 32 mmol/L (21-32) Anion Gap 7 (6-14) Blood Urea Nitrogen 22 mg/dL (7-20) Creatinine 0.9 mg/dL (0.6-1.0) Estimated GFR (Cockcroft-Gault) 61.5 BUN/Creatinine Ratio 24 (6-20) Glucose Level 136 mg/dL (70-99) Lactic Acid Level 1.9 mmol/L (0.4-2.0) Calcium Level 8.7 mg/dL (8.5-10.1) Magnesium Level 1.6 mg/dL (1.8-2.4) Total Bilirubin 0.2 mg/dL (0.2-1.0) Aspartate Amino Transf (AST/SGOT) 24 U/L (15-37) Alanine Aminotransferase (ALT/SGPT) 21 U/L (14-59) Alkaline Phosphatase 112 U/L (46-116) Creatine Kinase 99 U/L (26-192) Creatine Kinase MB (Mass) 2.0 ng/mL (0.0-3.6) Creatine Kinase MB Relative Index 2.0 % (0-4) Troponin I Quantitative < 0.017 ng/mL (0.000-0.055) EQ-Cxi-L-Type Natriuretic Peptide 995 pg/mL (0-124) Total Protein 7.5 g/dL (6.4-8.2) Albumin 3.2 g/dL (3.4-5.0) Albumin/Globulin Ratio 0.7 (1.0-1.7) Lipase 101 U/L (73-393) Influenza Type A Antigen Negative (NEGATIVE) Influenza Type B Antigen Negative (NEGATIVE) O2 Saturation 95 % (92-99) Arterial Blood pH 7.46 (7.35-7.45) Arterial Blood pCO2 at Patient Temp 39 mmHg (35-46) Arterial Blood pO2 at Patient Temp 71 mmHg (65-108) Arterial Blood HCO3 27 mmol/L (21-28) Arterial Blood Base Excess 3 mmol/L (-3-3) FiO2 28 Urine Collection Type Unknown Urine Color Yellow Urine Clarity Cloudy Urine pH 6.0 Urine Specific [place] 1.015 Urine Protein 100 mg/dL (NEG-TRACE) Urine Glucose (UA) Negative mg/dL (NEG) Urine Ketones (Stick) Negative mg/dL (NEG) Urine Blood Negative (NEG) Urine Nitrite Negative (NEG) Urine Bilirubin Negative (NEG) Urine Urobilinogen Dipstick 0.2 mg/dL (0.2 mg/dL) Urine Leukocyte Esterase Small (NEG) Urine RBC 0 /HPF (0-2) Urine WBC 5-10 /HPF (0-4) Urine Squamous Epithelial Cells Few /LPF Urine Transitional Epithelial Cells Few /LPF Urine Bacteria 0 /HPF (0-FEW) Test 07/25/18 07:20 Glucose (Fingerstick) 178 mg/dL (70-99) Laboratory Tests Test 07/24/18 17:11 07/24/18 17:35 07/24/18 17:40 07/24/18 18:40 White Blood Count 18.8 x10^3/uL (4.0-11.0) Red Blood Count 3.90 x10^6/uL (3.50-5.40) Hemoglobin 11.8 g/dL (12.0-15.5) Hematocrit 35.9 % (36.0-47.0) Mean Corpuscular Volume 92 fL (79-100) Mean Corpuscular Hemoglobin 30 pg (25-35) Mean Corpuscular Hemoglobin Concent 33 g/dL (31-37) Red Cell Distribution Width 14.6 % (11.5-14.5) Platelet Count 354 x10^3/uL (140-400) Neutrophils (%) (Auto) 87 % (31-73) Lymphocytes (%) (Auto) 6 % (24-48) Monocytes (%) (Auto) 7 % (0-9) Eosinophils (%) (Auto) 0 % (0-3) Basophils (%) (Auto) 1 % (0-3) Neutrophils # (Auto) 16.3 x10^3uL (1.8-7.7) Lymphocytes # (Auto) 1.2 x10^3/uL (1.0-4.8) Monocytes # (Auto) 1.2 x10^3/uL (0.0-1.1) Eosinophils # (Auto) 0.0 x10^3/uL (0.0-0.7) Basophils # (Auto) 0.1 x10^3/uL (0.0-0.2) Segmented Neutrophils % 69 % (35-66) Band Neutrophils % 18 % (0-9) Lymphocytes % 5 % (24-48) Atypical Lymphocytes % (Manual) 3 % (0-0) Monocytes % 5 % (0-10) Platelet Estimate Adequate (ADEQUATE) Prothrombin Time 12.6 SEC (11.7-14.0) Prothromb Time International Ratio 1.0 (0.8-1.1) Sodium Level 127 mmol/L (136-145) Potassium Level 5.4 mmol/L (3.5-5.1) Chloride Level 88 mmol/L (98-107) Carbon Dioxide Level 32 mmol/L (21-32) Anion Gap 7 (6-14) Blood Urea Nitrogen 22 mg/dL (7-20) Creatinine 0.9 mg/dL (0.6-1.0) Estimated GFR (Cockcroft-Gault) 61.5 BUN/Creatinine Ratio 24 (6-20) Glucose Level 136 mg/dL (70-99) Lactic Acid Level 1.9 mmol/L (0.4-2.0) Calcium Level 8.7 mg/dL (8.5-10.1) Magnesium Level 1.6 mg/dL (1.8-2.4) Total Bilirubin 0.2 mg/dL (0.2-1.0) Aspartate Amino Transf (AST/SGOT) 24 U/L (15-37) Alanine Aminotransferase (ALT/SGPT) 21 U/L (14-59) Alkaline Phosphatase 112 U/L (46-116) Creatine Kinase 99 U/L (26-192) Creatine Kinase MB (Mass) 2.0 ng/mL (0.0-3.6) Creatine Kinase MB Relative Index 2.0 % (0-4) Troponin I Quantitative < 0.017 ng/mL (0.000-0.055) UY-Pkh-Z-Type Natriuretic Peptide 995 pg/mL (0-124) Total Protein 7.5 g/dL (6.4-8.2) Albumin 3.2 g/dL (3.4-5.0) Albumin/Globulin Ratio 0.7 (1.0-1.7) Lipase 101 U/L (73-393) Influenza Type A Antigen Negative (NEGATIVE) Influenza Type B Antigen Negative (NEGATIVE) O2 Saturation 95 % (92-99) Arterial Blood pH 7.46 (7.35-7.45) Arterial Blood pCO2 at Patient Temp 39 mmHg (35-46) Arterial Blood pO2 at Patient Temp 71 mmHg (65-108) Arterial Blood HCO3 27 mmol/L (21-28) Arterial Blood Base Excess 3 mmol/L (-3-3) FiO2 28 Urine Collection Type Unknown Urine Color Yellow Urine Clarity Cloudy Urine pH 6.0 Urine Specific [place] 1.015 Urine Protein 100 mg/dL (NEG-TRACE) Urine Glucose (UA) Negative mg/dL (NEG) Urine Ketones (Stick) Negative mg/dL (NEG) Urine Blood Negative (NEG) Urine Nitrite Negative (NEG) Urine Bilirubin Negative (NEG) Urine Urobilinogen Dipstick 0.2 mg/dL (0.2 mg/dL) Urine Leukocyte Esterase Small (NEG) Urine RBC 0 /HPF (0-2) Urine WBC 5-10 /HPF (0-4) Urine Squamous Epithelial Cells Few /LPF Urine Transitional Epithelial Cells Few /LPF Urine Bacteria 0 /HPF (0-FEW) Test 07/25/18 07:20 Glucose (Fingerstick) 178 mg/dL (70-99) VTE Prophylaxis Ordered VTE Prophylaxis Devices: No VTE Pharmacological Prophylaxi: Yes Assessment/Plan Assessment/Plan A/P: Acute hypoxic respiratory failure, likely related to pneumonia - cont treatment. Consult pulm. BIPAP prn High grade fever - could be a viral pneumonia, rapid flu was negative Hyponatremia - follow labs, has mild/moderate protein calorie malnutrition based on this and muscular wasting Hyperkalemia - follow after IVF Hypomagnesemia - will replace CAD w/ stent - cont meds HTN - cont meds HLD - cont meds COPD - cont meds H/O CVA - monitor Parkinsons - cont meds DM - will cont to monitor Hypothyroidism - cont meds Depression/anxiety - cont meds GERD -cont PPI Factor V Leiden/DVT S/p Pacemaker - no issues FEN - ADA diet PPx - lovenox FULL CODE Inpatient for at least 2 midnights for hypoxic resp failure likely 2/2 CAP JUSTUS DE JESUS MD Jul 25, 2018 08:23
[2018-07-25] MEDS: LORazepam 1 MG TABLET PO SCH ×4 (08:24→21:10)
[2018-07-25] MEDS ORDERED: DILTIAZEM HCL 180 MG PO SCH (09:00)
[2018-07-25] MEDS ORDERED: DULoxetine HCL 30 MG CAPSULE.DR PO SCH (09:00)
[2018-07-25] MEDS ORDERED: rOPINIRole 1 MG TABLET. PO SCH (09:00)
[2018-07-25] MEDS ORDERED: NON FORMULARY ITEM (Metformin Hcl 1 TAB) PO SCH (09:00)
[2018-07-25] MEDS ORDERED: NON FORMULARY ITEM (Buspirone Hcl 1 TAB) PO SCH (09:00)
[2018-07-25] MEDS ORDERED: NON FORMULARY ITEM (Meloxicam 7.5 MG) PO SCH (09:00)
[2018-07-25] MEDS ORDERED: LIDOCAINE (700MG/PATCH) PATCH. TD SCH (09:00)
[2018-07-25] MEDS ORDERED: PRIMIDONE 50 MG TABLET PO SCH (09:00)
[2018-07-25] MEDS ORDERED: DONEPEZIL HCL PO SCH (09:00)
[2018-07-25 11:10] VITALS: BP 165/49
--- NOTE | 2018-07-25 11:29 | RAD ---
PQRS Compliance statement: One or more of the following individualized dose reduction techniques were utilized for this examination: 1. Automated exposure control. 2. Adjustment of the mA and/or kV according to patient size. 3. Use of iterative reconstruction technique. Indication:Pneumonia TECHNIQUE: CT chest without IV contrast with multiplanar reformats. COMPARISON:None FINDINGS: Heart is normal in size. No pericardial or pleural effusion. Cardiac pacer leads are seen in the right heart. No enlarged axillary, mediastinal adenopathy. Evaluation of hilar lymphadenopathy is limited due to lack of IV contrast. Focal opacity is seen in the left lower lobe with air bronchograms. Central airways are patent. Otherwise, lungs are clear. Visualized noncontrast sections through the liver, spleen, gallbladder, pancreas, adrenals within normal limits. No suspicious bony lesion. IMPRESSION: Findings suggestive of left lower lobe pneumonia. Electronically signed by: Joe Gilbert DO (07/25/2018 11:27 AM) [facility]
--- NOTE | 2018-07-25 11:39 | CONS ---
DATE OF CONSULTATION: 07/25/2018 ATTENDING PHYSICIAN: Dr. Penaloza. REASON FOR CONSULTATION: Pneumonia. HISTORY OF PRESENT ILLNESS: The patient is a 73-year-old female who smoked for 25 years, but quit 26 years ago. She came in to the hospital with complaint of shortness of breath. She also had a cough along with fever. The patient states that her fever was up to 102 at home. While in the hospital, her fever was 101. Her chest x-ray per my review shows some mildly prominent interstitial infiltrate in the left upper and on the right lower lobe. It was read as bronchitis. The patient's saturations dropped to 45% and she was little bit confused. However, she turned around very quickly. She was placed on BiPAP and given DuoNeb initially. Currently, she is on room air. PAST MEDICAL HISTORY: Significant for coronary artery disease, hypertension, CVA, urinary incontinence, diabetes, hypothyroidism, possible COPD. PAST SURGICAL HISTORY: Cataract removal, , total knee replacement, hysterectomy, and colon resection. FAMILY HISTORY: Noncontributory to lungs. ALLERGIES: SULFA and DEXAMETHASONE. REVIEW OF SYSTEMS: Twelve-point systems obtained. Pertinent positives discussed in my history of present illness, otherwise noncontributory. All systems that were negative and were reviewed as well. No headaches, no nausea, vomiting, no diarrhea, no dysuria, no focal weakness, no rash. MEDICATIONS: All reviewed as listed in the MRAD including antibiotics that she received in the ER. SOCIAL HISTORY: Smoked for 20 years before quitting 26 years ago. PHYSICAL EXAMINATION: VITAL SIGNS: T-max of 101, blood pressure is stable latest and pulse ox is 99% on 2 liters. HEENT: Sclerae nonicteric. NECK: Supple. LUNGS: Clear. CARDIOVASCULAR: Regular rate and rhythm. ABDOMEN: Soft, nontender. EXTREMITIES: With no pitting edema. LABORATORY DATA: Reviewed. Influenza screen negative. BUN and creatinine 22 and 0.9, potassium 5.4. ABGs with a pH of 7.46, pCO2 of 39, pO2 of 71 on 28% FIO2. INR 1.0. IMPRESSION: 1. Acute hypoxic respiratory failure, likely related to viral pneumonia. 2. High grade fever with mildly prominent interstitial infiltrate in the left upper lobe and right lower lobe, likely viral pneumonitis. We will obtain noncontrast CT chest for further evaluation. 3. History of tobacco use, but quit 26 years ago, probably underlying mild chronic obstructive pulmonary disease. 4. Influenza screen negative, but symptoms highly suggesting viral infection. 5. Mild hyponatremia and hyperkalemia and needs to follow up. RECOMMENDATIONS: 1. Continue with present oxygen with gradual wean, keep saturation 92% and above. 2. Obtain noncontrast CT chest to assess for infiltrates. 3. Continue empiric antibiotic. 4. Monitor fevers. 5. Bronchodilators. 6. Further recommendations to follow. EJ COLON MD DR: JAXON/baldomero JOB#: [id number] / [id number]
--- NOTE | 2018-07-25 11:46 | NUR ---
SW following pt for anticipated dc needs. Chart reviewed and Discussed with RN. Pt lives at home with family. PT/OT pending. SW will await for PT/OT evaluation to assess dc needs. Will continue to follow. Addendum: 07/25/18 at 1436 by GENI BOYCE Pt was seen by PT and is independent with ADL's. No skilled needs indicated at this time. Will continue to follow.
[2018-07-25] MEDS: PATCH REMOVAL. MC SCH (11:53)
[2018-07-25] MEDS ORDERED: MAGNESIUM SULFATE 2GM 50 ML IV ONE (15:00)
[2018-07-25 15:20] VITALS: BP 167/67
[2018-07-25] MEDS: ENOXAPARIN 30 MG/0.3 ML SYRINGE. SQ SCH (16:48)
[2018-07-25] MEDS: METOCLOPRAMIDE 10 MG TABLET. PO PRN (16:48)
[2018-07-25] MEDS: cefTRIAXone IV Push 1 GM VIAL. IVP SCH (16:50)
[2018-07-25 19:51] VITALS: BP 128/44
[2018-07-25] MEDS ORDERED: MIRTAZAPINE 15 MG TABLET PO SCH (21:00)
[2018-07-25] MEDS ORDERED: LIDOCAINE TP SCH (21:00)
[2018-07-25] MEDS: DOXYCYCLINE HYCLATE 100 MG in IV DEXTROSE 5% 100ML 100 ML IV SCH (21:08)
[2018-07-25] MEDS: LIDOCAINE (700MG/PATCH) PATCH. TD SCH (21:10)
[2018-07-25] MEDS: ZOLPIDEM 5 MG TABLET. PO SCH (21:11)
[2018-07-25] MEDS: DONEPEZIL HCL 10 MG TABLET. PO SCH (21:11)
[2018-07-25] MEDS: LACTOBACILLUS RHAMNOSUS GG 1 CAPSULE. PO SCH (21:11)
[2018-07-25] MEDS: MIRTAZAPINE 15 MG TABLET PO SCH (21:12)
[2018-07-25 23:21] VITALS: BP 146/53
[2018-07-26 03:16] VITALS: BP 143/56
[2018-07-26 05:36] LABS: BASO % 0 % (0-3); EOS % 0 % (0-3); HEMATOCRIT 29.3 % (36.0-47.0); HEMOGLOBIN 9.8 g/dL (12.0-15.5); LYMPH # 1.7 x10^3/uL (1.0-4.8); LYMPH % 16 % (24-48); MEAN CORPUSCULAR HEMOGLOBIN 31 pg (25-35); MEAN CORPUSCULAR HGB CONC 34 g/dL (31-37); MEAN CORPUSCULAR VOLUME 92 fL (79-100); MONO # 0.6 x10^3/uL (0.0-1.1); MONO % 5 % (0-9); NEUT # 8.6 x10^3uL (1.8-7.7); NEUT % 78 % (31-73); PLATELET COUNT 307 x10^3/uL (140-400); RED BLOOD COUNT 3.18 x10^6/uL (3.50-5.40); RED CELL DISTRIBUTION WIDTH 14.9 % (11.5-14.5)
[2018-07-26 05:54] LABS: CALCIUM 7.9 mg/dL (8.5-10.1); CREATININE 0.9 mg/dL (0.6-1.0); GFR 61.5; POTASSIUM 4.7 mmol/L (3.5-5.1)
[2018-07-26] MEDS: LEVOTHYROXINE 150 MCG TABLET PO SCH (06:59)
[2018-07-26 07:00] VITALS: BP 147/63
[2018-07-26] MEDS: IPRATRPIUM/ALBUTEROL 0.5/2.5MG 3 ML NEBU. NEB SCH ×4 (08:16→19:06)
--- NOTE | 2018-07-26 08:40 | PDOC ---
PROGRESS NOTES Chief Complaint Chief Complaint A/P: Acute hypoxic respiratory failure, likely related to pneumonia - cont treatment. Consult pulm. BIPAP prn High grade fever - could be a viral pneumonia, rapid flu was negative Hyponatremia - follow labs, has mild/moderate protein calorie malnutrition based on this and muscular wasting Hyperkalemia - follow after IVF Hypomagnesemia - will replace CAD w/ stent - cont meds HTN - cont meds HLD - cont meds COPD - cont meds H/O CVA - monitor Parkinsons - cont meds DM - will cont to monitor Hypothyroidism - cont meds Depression/anxiety - cont meds GERD -cont PPI Factor V Leiden/DVT S/p Pacemaker - no issues FEN - ADA diet PPx - lovenox FULL CODE Inpatient for at least 2 midnights for hypoxic resp failure likely 2/2 CAP History of Present Illness History of Present Illness 73 year old F w/ PMHx CAD w/ stent, [place], HTN, HLD, COPD, pneumonia, CVA, Parkinsons, seizures, DM, hypothyroidism, depression, anxiety, GERD, fatty liver , diverticulitis, Factor V Leiden, DVT, pacemaker,right hemicolectomy and JEANMARIE was brought here by EMS for evaluation of trouble breathing. EMS was called by her family due sudden onset of shortness of breath. Her daughter stated that she was doing fine today, about 1 hour ago she went to the bathroom, suddenly she developed shaking chills fever then she started having severe trouble breathing, she started having muscle spasm in her chest. She was given DuoNeb treatment at home by her daughter but did not get better. Her daughter said her oxygen saturation dropped to about 45%, patient was acting confused, her skin was blue so she called EMS to come and take her to hospital. Patient was trying to use the bathroom but she was too weak to get up. Was placed on BIPAP and given duonebs by EMS initially. Mag 1.6, Sodium 127, had leukocytosis and left sided opacity on CXR concerning for community acquired pneumonia, admitted for further care. Seen bedside off BIPAP she is actually not on O2 currently after her first 12 hours in the hospital, but still feels short of breath, has a cough. She is ambivalent about going home today, states she thinks she has an inhaler at home (not on med list). Plan: Symbicort and doxycycline on discharge if she goes today. I am ok with another day since she is producing more sputum, but symptomatically better Vitals Vitals Vital Signs Date Time Temp Pulse Resp B/P (MAP) Pulse Ox O2 Delivery O2 Flow Rate FiO2 07/26/18 08:16 96 Room Air 07/26/18 07:00 98.1 72 16 147/63 (91) 98.1 07/25/18 11:10 2.0 Physical Exam General: Alert, Cooperative, mild distress Lungs: Clear Abdomen: Normal bowel sounds, Soft, No tenderness, No hepatosplenomegaly, No masses Extremities: No clubbing, No cyanosis, No edema, Normal pulses, No tenderness/ swelling Skin: No rashes, No breakdown, No significant lesion Labs LABS Laboratory Tests Test 07/25/18 11:03 07/25/18 16:49 07/25/18 20:29 07/26/18 04:42 Glucose (Fingerstick) 161 mg/dL (70-99) 117 mg/dL (70-99) 112 mg/dL (70-99) White Blood Count 11.0 x10^3/uL (4.0-11.0) Red Blood Count 3.18 x10^6/uL (3.50-5.40) Hemoglobin 9.8 g/dL (12.0-15.5) Hematocrit 29.3 % (36.0-47.0) Mean Corpuscular Volume 92 fL (79-100) Mean Corpuscular Hemoglobin 31 pg (25-35) Mean Corpuscular Hemoglobin Concent 34 g/dL (31-37) Red Cell Distribution Width 14.9 % (11.5-14.5) Platelet Count 307 x10^3/uL (140-400) Neutrophils (%) (Auto) 78 % (31-73) Lymphocytes (%) (Auto) 16 % (24-48) Monocytes (%) (Auto) 5 % (0-9) Eosinophils (%) (Auto) 0 % (0-3) Basophils (%) (Auto) 0 % (0-3) Neutrophils # (Auto) 8.6 x10^3uL (1.8-7.7) Lymphocytes # (Auto) 1.7 x10^3/uL (1.0-4.8) Monocytes # (Auto) 0.6 x10^3/uL (0.0-1.1) Eosinophils # (Auto) 0.0 x10^3/uL (0.0-0.7) Basophils # (Auto) 0.0 x10^3/uL (0.0-0.2) Sodium Level 135 mmol/L (136-145) Potassium Level 4.7 mmol/L (3.5-5.1) Chloride Level 101 mmol/L (98-107) Carbon Dioxide Level 28 mmol/L (21-32) Anion Gap 6 (6-14) Blood Urea Nitrogen 15 mg/dL (7-20) Creatinine 0.9 mg/dL (0.6-1.0) Estimated GFR (Cockcroft-Gault) 61.5 Glucose Level 151 mg/dL (70-99) Calcium Level 7.9 mg/dL (8.5-10.1) Test 07/26/18 07:45 Glucose (Fingerstick) 131 mg/dL (70-99) Assessment and Plan Assessmemt and Plan Problems Medical Problems: (1) CAP (community acquired pneumonia) Status: Acute (2) COPD exacerbation Status: Acute (3) Fever Status: Acute Comment Review of Relevant I have reviewed the following items dina (where applicable) has been applied. Labs Laboratory Tests Test 07/24/18 17:11 07/24/18 17:35 07/24/18 17:40 07/24/18 18:40 White Blood Count 18.8 x10^3/uL (4.0-11.0) Red Blood Count 3.90 x10^6/uL (3.50-5.40) Hemoglobin 11.8 g/dL (12.0-15.5) Hematocrit 35.9 % (36.0-47.0) Mean Corpuscular Volume 92 fL (79-100) Mean Corpuscular Hemoglobin 30 pg (25-35) Mean Corpuscular Hemoglobin Concent 33 g/dL (31-37) Red Cell Distribution Width 14.6 % (11.5-14.5) Platelet Count 354 x10^3/uL (140-400) Neutrophils (%) (Auto) 87 % (31-73) Lymphocytes (%) (Auto) 6 % (24-48) Monocytes (%) (Auto) 7 % (0-9) Eosinophils (%) (Auto) 0 % (0-3) Basophils (%) (Auto) 1 % (0-3) Neutrophils # (Auto) 16.3 x10^3uL (1.8-7.7) Lymphocytes # (Auto) 1.2 x10^3/uL (1.0-4.8) Monocytes # (Auto) 1.2 x10^3/uL (0.0-1.1) Eosinophils # (Auto) 0.0 x10^3/uL (0.0-0.7) Basophils # (Auto) 0.1 x10^3/uL (0.0-0.2) Segmented Neutrophils % 69 % (35-66) Band Neutrophils % 18 % (0-9) Lymphocytes % 5 % (24-48) Atypical Lymphocytes % (Manual) 3 % (0-0) Monocytes % 5 % (0-10) Platelet Estimate Adequate (ADEQUATE) Prothrombin Time 12.6 SEC (11.7-14.0) Prothromb Time International Ratio 1.0 (0.8-1.1) Sodium Level 127 mmol/L (136-145) Potassium Level 5.4 mmol/L (3.5-5.1) Chloride Level 88 mmol/L (98-107) Carbon Dioxide Level 32 mmol/L (21-32) Anion Gap 7 (6-14) Blood Urea Nitrogen 22 mg/dL (7-20) Creatinine 0.9 mg/dL (0.6-1.0) Estimated GFR (Cockcroft-Gault) 61.5 BUN/Creatinine Ratio 24 (6-20) Glucose Level 136 mg/dL (70-99) Lactic Acid Level 1.9 mmol/L (0.4-2.0) Calcium Level 8.7 mg/dL (8.5-10.1) Magnesium Level 1.6 mg/dL (1.8-2.4) Total Bilirubin 0.2 mg/dL (0.2-1.0) Aspartate Amino Transf (AST/SGOT) 24 U/L (15-37) Alanine Aminotransferase (ALT/SGPT) 21 U/L (14-59) Alkaline Phosphatase 112 U/L (46-116) Creatine Kinase 99 U/L (26-192) Creatine Kinase MB (Mass) 2.0 ng/mL (0.0-3.6) Creatine Kinase MB Relative Index 2.0 % (0-4) Troponin I Quantitative < 0.017 ng/mL (0.000-0.055) ER-Gro-R-Type Natriuretic Peptide 995 pg/mL (0-124) Total Protein 7.5 g/dL (6.4-8.2) Albumin 3.2 g/dL (3.4-5.0) Albumin/Globulin Ratio 0.7 (1.0-1.7) Lipase 101 U/L (73-393) Influenza Type A Antigen Negative (NEGATIVE) Influenza Type B Antigen Negative (NEGATIVE) O2 Saturation 95 % (92-99) Arterial Blood pH 7.46 (7.35-7.45) Arterial Blood pCO2 at Patient Temp 39 mmHg (35-46) Arterial Blood pO2 at Patient Temp 71 mmHg (65-108) Arterial Blood HCO3 27 mmol/L (21-28) Arterial Blood Base Excess 3 mmol/L (-3-3) FiO2 28 Urine Collection Type Unknown Urine Color Yellow Urine Clarity Cloudy Urine pH 6.0 Urine Specific [place] 1.015 Urine Protein 100 mg/dL (NEG-TRACE) Urine Glucose (UA) Negative mg/dL (NEG) Urine Ketones (Stick) Negative mg/dL (NEG) Urine Blood Negative (NEG) Urine Nitrite Negative (NEG) Urine Bilirubin Negative (NEG) Urine Urobilinogen Dipstick 0.2 mg/dL (0.2 mg/dL) Urine Leukocyte Esterase Small (NEG) Urine RBC 0 /HPF (0-2) Urine WBC 5-10 /HPF (0-4) Urine Squamous Epithelial Cells Few /LPF Urine Transitional Epithelial Cells Few /LPF Urine Bacteria 0 /HPF (0-FEW) Test 07/25/18 07:20 07/25/18 11:03 07/25/18 16:49 07/25/18 20:29 Glucose (Fingerstick) 178 mg/dL (70-99) 161 mg/dL (70-99) 117 mg/dL (70-99) 112 mg/dL (70-99) Test 07/26/18 04:42 07/26/18 07:45 White Blood Count 11.0 x10^3/uL (4.0-11.0) Red Blood Count 3.18 x10^6/uL (3.50-5.40) Hemoglobin 9.8 g/dL (12.0-15.5) Hematocrit 29.3 % (36.0-47.0) Mean Corpuscular Volume 92 fL (79-100) Mean Corpuscular Hemoglobin 31 pg (25-35) Mean Corpuscular Hemoglobin Concent 34 g/dL (31-37) Red Cell Distribution Width 14.9 % (11.5-14.5) Platelet Count 307 x10^3/uL (140-400) Neutrophils (%) (Auto) 78 % (31-73) Lymphocytes (%) (Auto) 16 % (24-48) Monocytes (%) (Auto) 5 % (0-9) Eosinophils (%) (Auto) 0 % (0-3) Basophils (%) (Auto) 0 % (0-3) Neutrophils # (Auto) 8.6 x10^3uL (1.8-7.7) Lymphocytes # (Auto) 1.7 x10^3/uL (1.0-4.8) Monocytes # (Auto) 0.6 x10^3/uL (0.0-1.1) Eosinophils # (Auto) 0.0 x10^3/uL (0.0-0.7) Basophils # (Auto) 0.0 x10^3/uL (0.0-0.2) Sodium Level 135 mmol/L (136-145) Potassium Level 4.7 mmol/L (3.5-5.1) Chloride Level 101 mmol/L (98-107) Carbon Dioxide Level 28 mmol/L (21-32) Anion Gap 6 (6-14) Blood Urea Nitrogen 15 mg/dL (7-20) Creatinine 0.9 mg/dL (0.6-1.0) Estimated GFR (Cockcroft-Gault) 61.5 Glucose Level 151 mg/dL (70-99) Calcium Level 7.9 mg/dL (8.5-10.1) Glucose (Fingerstick) 131 mg/dL (70-99) Laboratory Tests Test 07/25/18 11:03 07/25/18 16:49 07/25/18 20:29 07/26/18 04:42 Glucose (Fingerstick) 161 mg/dL (70-99) 117 mg/dL (70-99) 112 mg/dL (70-99) White Blood Count 11.0 x10^3/uL (4.0-11.0) Red Blood Count 3.18 x10^6/uL (3.50-5.40) Hemoglobin 9.8 g/dL (12.0-15.5) Hematocrit 29.3 % (36.0-47.0) Mean Corpuscular Volume 92 fL (79-100) Mean Corpuscular Hemoglobin 31 pg (25-35) Mean Corpuscular Hemoglobin Concent 34 g/dL (31-37) Red Cell Distribution Width 14.9 % (11.5-14.5) Platelet Count 307 x10^3/uL (140-400) Neutrophils (%) (Auto) 78 % (31-73) Lymphocytes (%) (Auto) 16 % (24-48) Monocytes (%) (Auto) 5 % (0-9) Eosinophils (%) (Auto) 0 % (0-3) Basophils (%) (Auto) 0 % (0-3) Neutrophils # (Auto) 8.6 x10^3uL (1.8-7.7) Lymphocytes # (Auto) 1.7 x10^3/uL (1.0-4.8) Monocytes # (Auto) 0.6 x10^3/uL (0.0-1.1) Eosinophils # (Auto) 0.0 x10^3/uL (0.0-0.7) Basophils # (Auto) 0.0 x10^3/uL (0.0-0.2) Sodium Level 135 mmol/L (136-145) Potassium Level 4.7 mmol/L (3.5-5.1) Chloride Level 101 mmol/L (98-107) Carbon Dioxide Level 28 mmol/L (21-32) Anion Gap 6 (6-14) Blood Urea Nitrogen 15 mg/dL (7-20) Creatinine 0.9 mg/dL (0.6-1.0) Estimated GFR (Cockcroft-Gault) 61.5 Glucose Level 151 mg/dL (70-99) Calcium Level 7.9 mg/dL (8.5-10.1) Test 07/26/18 07:45 Glucose (Fingerstick) 131 mg/dL (70-99) Microbiology 07/24/18 Blood Culture - Preliminary, Resulted NO GROWTH AFTER 1 DAY Medications Current Medications Albuterol/ Ipratropium (Duoneb) 3 ml 1X ONCE NEB Last administered on at 17:38; Start 07/24/18 at 17:00; Stop 07/24/18 at 17:04; Status DC Sodium Chloride 1,000 ml @ 1,000 mls/hr 1X ONCE IV Last administered on at 17:54; Start 07/24/18 at 17:15; Stop 07/24/18 at 18:14; Status DC Ceftriaxone Sodium (Rocephin) 1 gm 1X ONCE IVP Last administered on 07/24/18at 18:30; Start 07/24/18 at 17:15; Stop 07/24/18 at 17:18; Status DC Azithromycin 250 ml @ 250 mls/hr 1X ONCE IV Last administered on 07/24/18at 18 :33; Start 07/24/18 at 17:15; Stop 07/24/18 at 18:14; Status DC Acetaminophen (Tylenol) 1,000 mg 1X ONCE PO Last administered on 07/24/18at 17: 53; Start 07/24/18 at 17:15; Stop 07/24/18 at 17:18; Status DC Ibuprofen (Motrin) 800 mg 1X ONCE PO Last administered on 07/24/18at 17:53; Start 07/24/18 at 17:15; Stop 07/24/18 at 17:18; Status DC Methylprednisolone Sodium Succinate (SOLU-Medrol 125MG VIAL) 125 mg 1X ONCE IV Last administered on 07/24/18at 17:53; Start 07/24/18 at 18:00; Stop 07/24/18 at 18:01; Status DC Ondansetron HCl (Zofran) 4 mg PRN Q8HRS PRN IV NAUSEA/VOMITING; Start 07/24/18 at 18:00; Stop 07/25/18 at 17:59; Status DC Morphine Sulfate (Morphine Sulfate) 2 mg PRN Q2HR PRN IV PAIN; Start 07/24/18 at 18:00; Stop 07/25/18 at 17:59; Status DC Sodium Chloride 1,000 ml @ 75 mls/hr [id number] IV Last administered on at 06:12; Start 07/24/18 at 17:54; Stop 07/25/18 at 17:53; Status DC Acetaminophen (Tylenol) 650 mg PRN Q4HRS PRN PO FEVER; Start 07/24/18 at 18:00 ; Stop 07/25/18 at 17:59; Status DC Albuterol/ Ipratropium (Duoneb) 3 ml RTQID NEB Last administered on 07/25/18 16:11; Start 07/24/18 at 20:00; Stop 07/25/18 at 16:23; Status DC Temazepam (Restoril) 15 mg PRN QHS PRN PO INSOMNIA; Start 07/24/18 at 22:15 Aspirin (Ecotrin) 81 mg DAILY PO Last administered on 07/25/18 08:23; Start at 09:00 Carbidopa/Levodopa (Sinemet 25/100) 1 tab Q12HR PO ; Start 07/24/18 at 23:30; Stop 07/24/18 at 23:47; Status DC Carvedilol (Coreg) 12.5 mg BIDWMEALS PO Last administered on 07/25/18 16:48; Start 07/24/18 at 23:30 Cyclobenzaprine HCl (Flexeril) 10 mg TID PO Last administered on 07/25/18 21: 13; Start 07/24/18 at 23:30 Gabapentin (Neurontin) 300 mg TID PO Last administered on 07/25/18 21:11; Start 07/24/18 at 23:30 Lorazepam (Ativan) 0.5 mg QID PO Last administered on 07/25/18 21:10; Start at 23:30 Metoclopramide HCl (Reglan) 10 mg PRN QID PRN PO NAUSEA Last administered on 16:48; Start 07/24/18 at 23:15 Oxycodone HCl (OxyCONTIN) 10 mg TID PO Last administered on 07/25/18 21:13; Start 07/25/18 at 09:00 Zolpidem Tartrate (Ambien) 5 mg QHS PO Last administered on 07/25/18 21:11; Start 07/24/18 at 23:30 Non-Formulary Medication (Buspirone Hcl ) 1 tab TID PO ; Start 07/25/18 at 09:00 ; Status UNV Non-Formulary Medication (Diltiazem Hcl (Cartia Xt)) 180 mg DAILY PO ; Start at 09:00; Status UNV Non-Formulary Medication (Donepezil Hcl ) 1 tab DAILY PO ; Start 07/25/18 at 09: 00; Status UNV Duloxetine HCl (Cymbalta) 60 mg BID PO Last administered on 07/25/18at 21:14; Start 07/24/18 at 23:30 Pantoprazole Sodium (Protonix) 40 mg DAILYAC PO Last administered on 07/25/18at 08:21; Start 07/25/18 at 07:30 Non-Formulary Medication (Levothyroxine Sodium ) 1 tab DAILY07 PO ; Start at 07:00; Status UNV Non-Formulary Medication (Lidocaine (Lidoderm)) 1 patch HS TP ; Start 07/25/18 at 21:00; Status UNV Non-Formulary Medication (Meloxicam ) 7.5 mg DAILY PO ; Start 07/25/18 at 09:00 ; Status UNV Non-Formulary Medication (Metformin Hcl ) 1 tab BID PO ; Start 07/25/18 at 09:00 ; Status UNV Mirtazapine (Remeron) 30 mg HS PO Last administered on 07/25/18at 21:12; Start 07/24/18 at 23:30 Primidone (Mysoline) 100 mg TID PO ; Start 07/24/18 at 23:30; Stop 07/25/18 at 00:10; Status DC Ropinirole HCl (Requip) 1 mg TID PO Last administered on 07/25/18at 21:10; Start 07/24/18 at 23:30 Levothyroxine Sodium (Synthroid) 150 mcg DAILY06 PO Last administered on at 06:59; Start 07/25/18 at 06:00 Buspirone HCl (Buspar) 5 mg TID PO Last administered on 07/25/18at 21:13; Start 07/24/18 at 23:30 Diltiazem HCl (Cardizem 24hr Cd) 180 mg DAILY PO Last administered on at 08:24; Start 07/25/18 at 09:00 Donepezil HCl (Aricept) 10 mg QHS PO Last administered on 07/25/18 21:11; Start 07/24/18 at 23:30 Meloxicam (Mobic) 7.5 mg DAILY PO Last administered on 07/25/18at 08:23; Start 07/25/18 at 09:00 Metformin HCl (Glucophage) 500 mg BIDWMEALS PO Last administered on 07/25/18at 16:47; Start 07/25/18 at 08:00 Primidone (Mysoline) 100 mg TID PO ; Start 07/25/18 at 09:00; Status UNV Ropinirole HCl (Requip) 1 mg TID PO ; Start 07/25/18 at 09:00; Status UNV Mirtazapine (Remeron) 30 mg QHS PO ; Start 07/25/18 at 21:00; Status UNV Duloxetine HCl (Cymbalta) 60 mg DAILY PO ; Start 07/25/18 at 09:00; Status UNV Carbidopa/Levodopa (Sinemet 25/100) 2.5 tab Q12HR PO Last administered on at 21:12; Start 07/24/18 at 23:30 Primidone (Mysoline) 50 mg TID PO Last administered on 07/25/18at 21:13; Start 07/25/18 at 09:00 Lidocaine (Lidoderm) 1 patch DAILY TD ; Start 07/25/18 at 09:00; Stop 07/25/18 at 09:13; Status DC Miscellaneous (Lidoderm Patch Removal) 1 ea QHS MC ; Start 07/25/18 at 21:00 Lidocaine (Lidoderm) 1 patch HS TD Last administered on 07/25/18at 21:10; Start 07/25/18 at 21:00 Ceftriaxone Sodium (Rocephin) 1 gm Q24H IVP Last administered on 07/25/18at 16: 50; Start 07/25/18 at 17:15 Lactobacillus Rhamnosus (Culturelle) 1 cap BID PO Last administered on 21:11; Start 07/25/18 at 21:00 Magnesium Sulfate 50 ml @ 25 mls/hr 1X ONCE IV Last administered on 07/25/18at 15:48; Start 07/25/18 at 15:00; Stop 07/25/18 at 16:59; Status DC Enoxaparin Sodium (Lovenox 30mg Syringe) 30 mg Q24H SQ Last administered on at 16:48; Start 07/25/18 at 16:00 Doxycycline Hyclate 100 mg/ Dextrose 100 ml @ 50 mls/hr Q12HR IV Last administered on 07/25/18at 21:08; Start 07/25/18 at 21:00 Albuterol/ Ipratropium (Duoneb) 3 ml RTQID NEB Last administered on 07/26/18at 08:16; Start 07/25/18 at 20:00 Active Scripts Active Clindamycin Hcl 300 Mg Capsule 1 Cap PO TID Cephalexin 500 Mg Tablet 1 Tab PO QID Reglan (Metoclopramide Hcl) 10 Mg Tablet 1 Tab PO QID PRN Culturelle (Lactobacillus Rhamnosus Gg) 1 Each Cap.sprink 1 Cap PO BID Clopidogrel (Clopidogrel Bisulfate) 75 Mg Tablet 75 Mg PO [id number] Reported Buspirone Hcl 15 Mg Tablet 1 Tab PO TID Meloxicam 7.5 Mg Tablet 7.5 Mg PO DAILY Gabapentin (Gabapentin) 300 Mg Capsule 300 Mg PO TID Oxycontin (Oxycodone HCl) 10 Mg Tab.er.12h 10 Mg PO TID Cartia Xt (Diltiazem Hcl) 180 Mg Cap.er.24h 180 Mg PO DAILY Levothyroxine Sodium 150 Mcg Tablet 1 Tab PO DAILY07 Ropinirole Hcl 1 Mg Tablet 1 Mg PO TID Donepezil Hcl 10 Mg Tablet 1 Tab PO DAILY Lorazepam 1 Mg Tablet 0.5 Mg PO QID Duloxetine Hcl 60 Mg Capsule. 60 Mg PO BID Cyclobenzaprine Hcl 10 Mg Tablet 1 Tab PO BID Lidoderm (Lidocaine) 700 Mg Adh..patch 1 Patch TP HS Aspir 81 (Aspirin) 81 Mg Tablet. 1 Tab PO DAILY Carbidopa-Levodopa 25-100 Tab (Carbidopa/Levodopa) 1 Each Tablet 1 Each PO Q12HR Mirtazapine 30 Mg Tab.rapdis 30 Mg PO HS Zolpidem Tartrate 5 Mg Tablet 1 Tab PO QHS Coreg (Carvedilol) 12.5 Mg Tablet 1 Tab PO BID . Metformin Hcl 500 Mg Tablet 1 Tab PO BID Nexium Capsule (Esomeprazole Magnesium) 40 Mg Capsule.dr 40 Mg PO DAILY Vitals/I & O Vital Sign - Last 24 Hours 07/25/18 07/25/18 07/25/18 07/25/18 11:10 11:27 14:14 15:20 Temp 98.0 98.3 98.0 98.3 Pulse 72 73 Resp 20 16 20 B/P (MAP) 165/49 (87) 167/67 (100) Pulse Ox 100 99 100 O2 Delivery Nasal Cannula Room Air Room Air Room Air O2 Flow Rate 2.0 07/25/18 07/25/18 07/25/18 07/25/18 16:12 16:48 19:51 20:11 Temp 98.7 98.7 Pulse 73 69 Resp 18 B/P (MAP) 167/67 128/44 (72) Pulse Ox 99 97 O2 Delivery Room Air Room Air Room Air 07/25/18 07/25/18 07/25/18 07/26/18 20:42 21:13 23:21 01:26 Temp 98.2 98.2 Pulse 72 Resp 18 B/P (MAP) 146/53 (84) Pulse Ox 97 O2 Delivery Room Air Room Air Room Air Room Air 07/26/18 07/26/18 07/26/18 03:16 07:00 08:16 Temp 97.8 98.1 97.8 98.1 Pulse 73 72 Resp 16 16 B/P (MAP) 143/56 (85) 147/63 (91) Pulse Ox 94 95 96 O2 Delivery Room Air Room Air Room Air Intake and Output 07/25/18 07/25/18 07/26/18 14:59 22:59 06:59 Intake Total 300 ml 560 ml 340 ml Output Total 1 ml Balance 299 ml 560 ml 340 ml JUSTUS DE JESUS MD Jul 26, 2018 08:39
[2018-07-26] MEDS: CARBIDOPA/LEVODOPA 25/100MG TABLET PO SCH ×2 (09:07→20:53)
[2018-07-26] MEDS: GABAPENTIN 300 MG CAPSULE. PO SCH ×3 (09:07→20:52)
[2018-07-26] MEDS: metFORMIN 500 MG TABLET PO SCH ×2 (09:07→17:16)
[2018-07-26] MEDS: CARVEDILOL 12.5 MG TABLET. PO SCH ×2 (09:08→17:16)
[2018-07-26] MEDS: PANTOPRAZOLE 40 MG TABLET.DR. PO SCH (09:08)
[2018-07-26] MEDS: rOPINIRole 1 MG TABLET. PO SCH ×3 (09:08→20:52)
[2018-07-26] MEDS: LORazepam 1 MG TABLET PO SCH ×4 (09:08→20:53)
[2018-07-26] MEDS: busPIRone 5 MG TABLET. PO SCH ×3 (09:08→20:52)
[2018-07-26] MEDS: LACTOBACILLUS RHAMNOSUS GG 1 CAPSULE. PO SCH ×2 (09:08→20:52)
[2018-07-26] MEDS: PRIMIDONE 50 MG TABLET PO SCH ×3 (09:08→20:52)
[2018-07-26] MEDS: DULoxetine HCL 30 MG CAPSULE.DR PO SCH ×2 (09:08→20:52)
[2018-07-26] MEDS: MELOXICAM 7.5 MG TABLET PO SCH (09:09)
[2018-07-26] MEDS: oxyCODONE ER 10 MG TAB.ER.12H PO SCH ×3 (09:09→20:52)
[2018-07-26] MEDS: ASPIRIN ENTERIC COATED 81 MG TABLET.DR. PO SCH (09:09)
[2018-07-26] MEDS: CYCLOBENZAPRINE 10 MG TABLET. PO SCH ×3 (09:09→20:53)
[2018-07-26] MEDS: DOXYCYCLINE HYCLATE 100 MG in IV DEXTROSE 5% 100ML 100 ML IV SCH ×2 (09:10→20:43)
[2018-07-26] MEDS ORDERED: BUDE10.22 IH (10:02)
[2018-07-26] MEDS ORDERED: DOXY100C14 PO (10:02)
[2018-07-26 11:00] VITALS: BP 167/77
--- NOTE | 2018-07-26 11:54 | PDOC ---
PULMONARY PROGRESS NOTES Subjective FEELS BETTER Vitals Vital Signs Date Time Temp Pulse Resp B/P (MAP) Pulse Ox O2 Delivery O2 Flow Rate FiO2 07/26/18 11:49 96 Room Air 07/26/18 09:08 72 147/63 07/26/18 08:00 1.0 07/26/18 07:00 98.1 16 98.1 General: Alert, No acute distress Lungs: Clear Cardiovascular: S1, S2 Abdomen: Soft, Non-tender Neuro Exam: Alert Extremities: No Edema Skin: Warm Labs Laboratory Tests Test 07/24/18 17:11 07/24/18 17:35 07/24/18 17:40 07/24/18 18:40 White Blood Count 18.8 x10^3/uL (4.0-11.0) Red Blood Count 3.90 x10^6/uL (3.50-5.40) Hemoglobin 11.8 g/dL (12.0-15.5) Hematocrit 35.9 % (36.0-47.0) Mean Corpuscular Volume 92 fL (79-100) Mean Corpuscular Hemoglobin 30 pg (25-35) Mean Corpuscular Hemoglobin Concent 33 g/dL (31-37) Red Cell Distribution Width 14.6 % (11.5-14.5) Platelet Count 354 x10^3/uL (140-400) Neutrophils (%) (Auto) 87 % (31-73) Lymphocytes (%) (Auto) 6 % (24-48) Monocytes (%) (Auto) 7 % (0-9) Eosinophils (%) (Auto) 0 % (0-3) Basophils (%) (Auto) 1 % (0-3) Neutrophils # (Auto) 16.3 x10^3uL (1.8-7.7) Lymphocytes # (Auto) 1.2 x10^3/uL (1.0-4.8) Monocytes # (Auto) 1.2 x10^3/uL (0.0-1.1) Eosinophils # (Auto) 0.0 x10^3/uL (0.0-0.7) Basophils # (Auto) 0.1 x10^3/uL (0.0-0.2) Segmented Neutrophils % 69 % (35-66) Band Neutrophils % 18 % (0-9) Lymphocytes % 5 % (24-48) Atypical Lymphocytes % (Manual) 3 % (0-0) Monocytes % 5 % (0-10) Platelet Estimate Adequate (ADEQUATE) Prothrombin Time 12.6 SEC (11.7-14.0) Prothromb Time International Ratio 1.0 (0.8-1.1) Sodium Level 127 mmol/L (136-145) Potassium Level 5.4 mmol/L (3.5-5.1) Chloride Level 88 mmol/L (98-107) Carbon Dioxide Level 32 mmol/L (21-32) Anion Gap 7 (6-14) Blood Urea Nitrogen 22 mg/dL (7-20) Creatinine 0.9 mg/dL (0.6-1.0) Estimated GFR (Cockcroft-Gault) 61.5 BUN/Creatinine Ratio 24 (6-20) Glucose Level 136 mg/dL (70-99) Lactic Acid Level 1.9 mmol/L (0.4-2.0) Calcium Level 8.7 mg/dL (8.5-10.1) Magnesium Level 1.6 mg/dL (1.8-2.4) Total Bilirubin 0.2 mg/dL (0.2-1.0) Aspartate Amino Transf (AST/SGOT) 24 U/L (15-37) Alanine Aminotransferase (ALT/SGPT) 21 U/L (14-59) Alkaline Phosphatase 112 U/L (46-116) Creatine Kinase 99 U/L (26-192) Creatine Kinase MB (Mass) 2.0 ng/mL (0.0-3.6) Creatine Kinase MB Relative Index 2.0 % (0-4) Troponin I Quantitative < 0.017 ng/mL (0.000-0.055) SQ-Chu-Y-Type Natriuretic Peptide 995 pg/mL (0-124) Total Protein 7.5 g/dL (6.4-8.2) Albumin 3.2 g/dL (3.4-5.0) Albumin/Globulin Ratio 0.7 (1.0-1.7) Lipase 101 U/L (73-393) Influenza Type A Antigen Negative (NEGATIVE) Influenza Type B Antigen Negative (NEGATIVE) O2 Saturation 95 % (92-99) Arterial Blood pH 7.46 (7.35-7.45) Arterial Blood pCO2 at Patient Temp 39 mmHg (35-46) Arterial Blood pO2 at Patient Temp 71 mmHg (65-108) Arterial Blood HCO3 27 mmol/L (21-28) Arterial Blood Base Excess 3 mmol/L (-3-3) FiO2 28 Urine Collection Type Unknown Urine Color Yellow Urine Clarity Cloudy Urine pH 6.0 Urine Specific [place] 1.015 Urine Protein 100 mg/dL (NEG-TRACE) Urine Glucose (UA) Negative mg/dL (NEG) Urine Ketones (Stick) Negative mg/dL (NEG) Urine Blood Negative (NEG) Urine Nitrite Negative (NEG) Urine Bilirubin Negative (NEG) Urine Urobilinogen Dipstick 0.2 mg/dL (0.2 mg/dL) Urine Leukocyte Esterase Small (NEG) Urine RBC 0 /HPF (0-2) Urine WBC 5-10 /HPF (0-4) Urine Squamous Epithelial Cells Few /LPF Urine Transitional Epithelial Cells Few /LPF Urine Bacteria 0 /HPF (0-FEW) Test 07/25/18 07:20 07/25/18 11:03 07/25/18 16:49 07/25/18 20:29 Glucose (Fingerstick) 178 mg/dL (70-99) 161 mg/dL (70-99) 117 mg/dL (70-99) 112 mg/dL (70-99) Test 07/26/18 04:42 07/26/18 07:45 07/26/18 10:51 White Blood Count 11.0 x10^3/uL (4.0-11.0) Red Blood Count 3.18 x10^6/uL (3.50-5.40) Hemoglobin 9.8 g/dL (12.0-15.5) Hematocrit 29.3 % (36.0-47.0) Mean Corpuscular Volume 92 fL (79-100) Mean Corpuscular Hemoglobin 31 pg (25-35) Mean Corpuscular Hemoglobin Concent 34 g/dL (31-37) Red Cell Distribution Width 14.9 % (11.5-14.5) Platelet Count 307 x10^3/uL (140-400) Neutrophils (%) (Auto) 78 % (31-73) Lymphocytes (%) (Auto) 16 % (24-48) Monocytes (%) (Auto) 5 % (0-9) Eosinophils (%) (Auto) 0 % (0-3) Basophils (%) (Auto) 0 % (0-3) Neutrophils # (Auto) 8.6 x10^3uL (1.8-7.7) Lymphocytes # (Auto) 1.7 x10^3/uL (1.0-4.8) Monocytes # (Auto) 0.6 x10^3/uL (0.0-1.1) Eosinophils # (Auto) 0.0 x10^3/uL (0.0-0.7) Basophils # (Auto) 0.0 x10^3/uL (0.0-0.2) Sodium Level 135 mmol/L (136-145) Potassium Level 4.7 mmol/L (3.5-5.1) Chloride Level 101 mmol/L (98-107) Carbon Dioxide Level 28 mmol/L (21-32) Anion Gap 6 (6-14) Blood Urea Nitrogen 15 mg/dL (7-20) Creatinine 0.9 mg/dL (0.6-1.0) Estimated GFR (Cockcroft-Gault) 61.5 Glucose Level 151 mg/dL (70-99) Calcium Level 7.9 mg/dL (8.5-10.1) Glucose (Fingerstick) 131 mg/dL (70-99) 158 mg/dL (70-99) Laboratory Tests Test 07/25/18 16:49 07/25/18 20:29 07/26/18 04:42 07/26/18 07:45 Glucose (Fingerstick) 117 mg/dL (70-99) 112 mg/dL (70-99) 131 mg/dL (70-99) White Blood Count 11.0 x10^3/uL (4.0-11.0) Red Blood Count 3.18 x10^6/uL (3.50-5.40) Hemoglobin 9.8 g/dL (12.0-15.5) Hematocrit 29.3 % (36.0-47.0) Mean Corpuscular Volume 92 fL (79-100) Mean Corpuscular Hemoglobin 31 pg (25-35) Mean Corpuscular Hemoglobin Concent 34 g/dL (31-37) Red Cell Distribution Width 14.9 % (11.5-14.5) Platelet Count 307 x10^3/uL (140-400) Neutrophils (%) (Auto) 78 % (31-73) Lymphocytes (%) (Auto) 16 % (24-48) Monocytes (%) (Auto) 5 % (0-9) Eosinophils (%) (Auto) 0 % (0-3) Basophils (%) (Auto) 0 % (0-3) Neutrophils # (Auto) 8.6 x10^3uL (1.8-7.7) Lymphocytes # (Auto) 1.7 x10^3/uL (1.0-4.8) Monocytes # (Auto) 0.6 x10^3/uL (0.0-1.1) Eosinophils # (Auto) 0.0 x10^3/uL (0.0-0.7) Basophils # (Auto) 0.0 x10^3/uL (0.0-0.2) Sodium Level 135 mmol/L (136-145) Potassium Level 4.7 mmol/L (3.5-5.1) Chloride Level 101 mmol/L (98-107) Carbon Dioxide Level 28 mmol/L (21-32) Anion Gap 6 (6-14) Blood Urea Nitrogen 15 mg/dL (7-20) Creatinine 0.9 mg/dL (0.6-1.0) Estimated GFR (Cockcroft-Gault) 61.5 Glucose Level 151 mg/dL (70-99) Calcium Level 7.9 mg/dL (8.5-10.1) Test 07/26/18 10:51 Glucose (Fingerstick) 158 mg/dL (70-99) Medications Active Scripts Medications Dose Route/Sig Max Daily Dose Days Date Category Dose Instructions Symbicort 80-4.5 Mcg Inhaler (Budesonide/Formoterol Fumarate) 10.2 Gm Hfa.aer.ad 2 Puff IH BID 30 07/26/18 Rx Doxycycline Monohydrate 100 Mg Capsule 1 Cap PO BID 7 07/26/18 Rx Buspirone Hcl 15 Mg Tablet 1 Tab PO TID 07/24/18 Reported Meloxicam 7.5 Mg Tablet 7.5 Mg PO DAILY 07/24/18 Reported Gabapentin (Gabapentin) 300 Mg Capsule 300 Mg PO TID 07/24/18 Reported Oxycontin (Oxycodone HCl) 10 Mg Tab.er.12h 10 Mg PO TID 07/24/18 Reported Cartia Xt (Diltiazem Hcl) 180 Mg Cap.er.24h 180 Mg PO DAILY 07/24/18 Reported Reglan (Metoclopramide Hcl) 10 Mg Tablet 1 Tab PO QID PRN 11/09/17 Rx Culturelle (Lactobacillus Rhamnosus Gg) 1 Each Cap.sprink 1 Cap PO BID 05/12/17 Rx Levothyroxine Sodium 150 Mcg Tablet 1 Tab PO DAILY07 05/09/17 Reported Ropinirole Hcl 1 Mg Tablet 1 Mg PO TID 11/15/16 Reported Donepezil Hcl 10 Mg Tablet 1 Tab PO DAILY 08/15/16 Reported Lorazepam 1 Mg Tablet 0.5 Mg PO QID 08/15/16 Reported Duloxetine Hcl 60 Mg Capsule.dr 60 Mg PO BID 08/15/16 Reported Cyclobenzaprine Hcl 10 Mg Tablet 1 Tab PO BID 08/15/16 Reported Lidoderm (Lidocaine) 700 Mg Adh..patch 1 Patch TP HS 06/02/16 Reported Aspir 81 (Aspirin) 81 Mg Tablet.dr 1 Tab PO DAILY 06/02/16 Reported Carbidopa-Levodopa 25-100 Tab (Carbidopa/Levodopa) 1 Each Tablet 1 Each PO Q12HR 04/16/16 Reported Mirtazapine 30 Mg Tab.rapdis 30 Mg PO HS 04/16/16 Reported Zolpidem Tartrate 5 Mg Tablet 1 Tab PO QHS 04/16/16 Reported Coreg (Carvedilol) 12.5 Mg Tablet 1 Tab PO BID 10/13/15 Reported . Clopidogrel (Clopidogrel Bisulfate) 75 Mg Tablet 75 Mg PO DAILYWBKFT 05/09/15 Rx Metformin Hcl 500 Mg Tablet 1 Tab PO BID 02/25/15 Reported Nexium Capsule (Esomeprazole Magnesium) 40 Mg Capsule.dr 40 Mg PO DAILY 09/01/13 Reported Impression . 1. Acute hypoxic respiratory failure, likely related to viral pneumonia. 2. High grade fever with mildly prominent interstitial infiltrate in the left upper lobe and right lower lobe, likely viral pneumonitis. 3. History of tobacco use, but quit 26 years ago, probably underlying mild chronic obstructive pulmonary disease. 4. Influenza screen negative, but symptoms highly suggesting viral infection. 5. Mild hyponatremia and hyperkalemia and needs to follow up. Plan . 1. Continue with present oxygen with gradual wean, keep saturation 92% and above. 2. CT chest reviewed/ LLL pneumonia 3. Continue empiric antibiotic. 4. Monitor fevers. 5. Bronchodilators. EJ COLON MD Jul 26, 2018 11:54
[2018-07-26 15:00] VITALS: BP 155/65
[2018-07-26] MEDS: ENOXAPARIN 30 MG/0.3 ML SYRINGE. SQ SCH (17:15)
[2018-07-26] MEDS: cefTRIAXone IV Push 1 GM VIAL. IVP SCH (17:16)
[2018-07-26] MEDS: METOCLOPRAMIDE 10 MG TABLET. PO PRN (17:18)
[2018-07-26 19:52] VITALS: BP 158/47
[2018-07-26] MEDS: LIDOCAINE (700MG/PATCH) PATCH. TD SCH (20:47)
[2018-07-26] MEDS: ZOLPIDEM 5 MG TABLET. PO SCH (20:52)
[2018-07-26] MEDS: DONEPEZIL HCL 10 MG TABLET. PO SCH (20:52)
[2018-07-26] MEDS: MIRTAZAPINE 15 MG TABLET PO SCH (20:52)
[2018-07-26] MEDS: PATCH REMOVAL. MC SCH (21:00)
[2018-07-26 23:20] VITALS: BP 139/48
[2018-07-27 03:51] VITALS: BP 173/72
[2018-07-27 05:38] LABS: BASO % 0 % (0-3); EOS # 0.2 x10^3/uL (0.0-0.7); EOS % 2 % (0-3); HEMATOCRIT 30.7 % (36.0-47.0); HEMOGLOBIN 10.4 g/dL (12.0-15.5); LYMPH # 1.7 x10^3/uL (1.0-4.8); LYMPH % 24 % (24-48); MEAN CORPUSCULAR HEMOGLOBIN 31 pg (25-35); MEAN CORPUSCULAR HGB CONC 34 g/dL (31-37); MEAN CORPUSCULAR VOLUME 92 fL (79-100); MONO # 0.5 x10^3/uL (0.0-1.1); MONO % 6 % (0-9); NEUT # 4.9 x10^3uL (1.8-7.7); NEUT % 67 % (31-73); PLATELET COUNT 327 x10^3/uL (140-400); RED BLOOD COUNT 3.34 x10^6/uL (3.50-5.40); RED CELL DISTRIBUTION WIDTH 15.1 % (11.5-14.5); WHITE BLOOD COUNT 7.3 x10^3/uL (4.0-11.0)
[2018-07-27 05:47] LABS: CALCIUM 8.4 mg/dL (8.5-10.1); CREATININE 0.7 mg/dL (0.6-1.0); GFR 82.3; POTASSIUM 4.8 mmol/L (3.5-5.1)
[2018-07-27] MEDS: LEVOTHYROXINE 150 MCG TABLET PO SCH (06:34)
[2018-07-27 07:00] VITALS: BP 191/85
[2018-07-27] MEDS: IPRATRPIUM/ALBUTEROL 0.5/2.5MG 3 ML NEBU. NEB SCH ×2 (07:48→11:47)
[2018-07-27] MEDS: PANTOPRAZOLE 40 MG TABLET.DR. PO SCH (08:02)
[2018-07-27] MEDS: DOXYCYCLINE HYCLATE 100 MG in IV DEXTROSE 5% 100ML 100 ML IV SCH ×2 (08:34→09:00)
[2018-07-27] MEDS: oxyCODONE ER 10 MG TAB.ER.12H PO SCH ×2 (08:38→13:12)
[2018-07-27] MEDS: CARVEDILOL 12.5 MG TABLET. PO SCH (08:38)
[2018-07-27] MEDS: LACTOBACILLUS RHAMNOSUS GG 1 CAPSULE. PO SCH (08:38)
[2018-07-27] MEDS: GABAPENTIN 300 MG CAPSULE. PO SCH ×2 (08:39→13:11)
[2018-07-27] MEDS: busPIRone 5 MG TABLET. PO SCH ×2 (08:39→13:12)
[2018-07-27] MEDS: rOPINIRole 1 MG TABLET. PO SCH ×2 (08:39→13:12)
[2018-07-27] MEDS: CYCLOBENZAPRINE 10 MG TABLET. PO SCH ×2 (08:39→13:12)
[2018-07-27] MEDS: metFORMIN 500 MG TABLET PO SCH (08:39)
[2018-07-27] MEDS: LORazepam 1 MG TABLET PO SCH ×2 (08:39→13:11)
[2018-07-27] MEDS: MELOXICAM 7.5 MG TABLET PO SCH (08:39)
[2018-07-27] MEDS: PRIMIDONE 50 MG TABLET PO SCH ×2 (08:39→13:12)
[2018-07-27] MEDS: ASPIRIN ENTERIC COATED 81 MG TABLET.DR. PO SCH (08:40)
[2018-07-27] MEDS: DULoxetine HCL 30 MG CAPSULE.DR PO SCH (08:40)
[2018-07-27] MEDS: CARBIDOPA/LEVODOPA 25/100MG TABLET PO SCH (08:41)
[2018-07-27] MEDS ORDERED: PATCH REMOVAL. MC SCH (09:00)
--- NOTE | 2018-07-27 10:20 | PDOC ---
PULMONARY PROGRESS NOTES Subjective FEELS BETTER Vitals Vital Signs Date Time Temp Pulse Resp B/P (MAP) Pulse Ox O2 Delivery O2 Flow Rate FiO2 07/27/18 08:38 81 191/85 07/27/18 08:38 94 Room Air 1.0 07/27/18 07:00 98.5 16 98.5 General: Alert, No acute distress Lungs: Clear Cardiovascular: S1, S2 Abdomen: Soft, Non-tender Neuro Exam: Alert Extremities: No Edema Skin: Warm Labs Laboratory Tests Test 07/25/18 11:03 07/25/18 16:49 07/25/18 20:29 07/26/18 04:42 Glucose (Fingerstick) 161 mg/dL (70-99) 117 mg/dL (70-99) 112 mg/dL (70-99) White Blood Count 11.0 x10^3/uL (4.0-11.0) Red Blood Count 3.18 x10^6/uL (3.50-5.40) Hemoglobin 9.8 g/dL (12.0-15.5) Hematocrit 29.3 % (36.0-47.0) Mean Corpuscular Volume 92 fL (79-100) Mean Corpuscular Hemoglobin 31 pg (25-35) Mean Corpuscular Hemoglobin Concent 34 g/dL (31-37) Red Cell Distribution Width 14.9 % (11.5-14.5) Platelet Count 307 x10^3/uL (140-400) Neutrophils (%) (Auto) 78 % (31-73) Lymphocytes (%) (Auto) 16 % (24-48) Monocytes (%) (Auto) 5 % (0-9) Eosinophils (%) (Auto) 0 % (0-3) Basophils (%) (Auto) 0 % (0-3) Neutrophils # (Auto) 8.6 x10^3uL (1.8-7.7) Lymphocytes # (Auto) 1.7 x10^3/uL (1.0-4.8) Monocytes # (Auto) 0.6 x10^3/uL (0.0-1.1) Eosinophils # (Auto) 0.0 x10^3/uL (0.0-0.7) Basophils # (Auto) 0.0 x10^3/uL (0.0-0.2) Sodium Level 135 mmol/L (136-145) Potassium Level 4.7 mmol/L (3.5-5.1) Chloride Level 101 mmol/L (98-107) Carbon Dioxide Level 28 mmol/L (21-32) Anion Gap 6 (6-14) Blood Urea Nitrogen 15 mg/dL (7-20) Creatinine 0.9 mg/dL (0.6-1.0) Estimated GFR (Cockcroft-Gault) 61.5 Glucose Level 151 mg/dL (70-99) Calcium Level 7.9 mg/dL (8.5-10.1) Test 07/26/18 07:45 07/26/18 10:51 07/26/18 20:57 07/27/18 04:53 Glucose (Fingerstick) 131 mg/dL (70-99) 158 mg/dL (70-99) 120 mg/dL (70-99) White Blood Count 7.3 x10^3/uL (4.0-11.0) Red Blood Count 3.34 x10^6/uL (3.50-5.40) Hemoglobin 10.4 g/dL (12.0-15.5) Hematocrit 30.7 % (36.0-47.0) Mean Corpuscular Volume 92 fL (79-100) Mean Corpuscular Hemoglobin 31 pg (25-35) Mean Corpuscular Hemoglobin Concent 34 g/dL (31-37) Red Cell Distribution Width 15.1 % (11.5-14.5) Platelet Count 327 x10^3/uL (140-400) Neutrophils (%) (Auto) 67 % (31-73) Lymphocytes (%) (Auto) 24 % (24-48) Monocytes (%) (Auto) 6 % (0-9) Eosinophils (%) (Auto) 2 % (0-3) Basophils (%) (Auto) 0 % (0-3) Neutrophils # (Auto) 4.9 x10^3uL (1.8-7.7) Lymphocytes # (Auto) 1.7 x10^3/uL (1.0-4.8) Monocytes # (Auto) 0.5 x10^3/uL (0.0-1.1) Eosinophils # (Auto) 0.2 x10^3/uL (0.0-0.7) Basophils # (Auto) 0.0 x10^3/uL (0.0-0.2) Sodium Level 136 mmol/L (136-145) Potassium Level 4.8 mmol/L (3.5-5.1) Chloride Level 101 mmol/L (98-107) Carbon Dioxide Level 31 mmol/L (21-32) Anion Gap 4 (6-14) Blood Urea Nitrogen 15 mg/dL (7-20) Creatinine 0.7 mg/dL (0.6-1.0) Estimated GFR (Cockcroft-Gault) 82.3 Glucose Level 112 mg/dL (70-99) Calcium Level 8.4 mg/dL (8.5-10.1) Test 07/27/18 07:41 Glucose (Fingerstick) 106 mg/dL (70-99) Laboratory Tests Test 07/26/18 10:51 07/26/18 20:57 07/27/18 04:53 07/27/18 07:41 Glucose (Fingerstick) 158 mg/dL (70-99) 120 mg/dL (70-99) 106 mg/dL (70-99) White Blood Count 7.3 x10^3/uL (4.0-11.0) Red Blood Count 3.34 x10^6/uL (3.50-5.40) Hemoglobin 10.4 g/dL (12.0-15.5) Hematocrit 30.7 % (36.0-47.0) Mean Corpuscular Volume 92 fL (79-100) Mean Corpuscular Hemoglobin 31 pg (25-35) Mean Corpuscular Hemoglobin Concent 34 g/dL (31-37) Red Cell Distribution Width 15.1 % (11.5-14.5) Platelet Count 327 x10^3/uL (140-400) Neutrophils (%) (Auto) 67 % (31-73) Lymphocytes (%) (Auto) 24 % (24-48) Monocytes (%) (Auto) 6 % (0-9) Eosinophils (%) (Auto) 2 % (0-3) Basophils (%) (Auto) 0 % (0-3) Neutrophils # (Auto) 4.9 x10^3uL (1.8-7.7) Lymphocytes # (Auto) 1.7 x10^3/uL (1.0-4.8) Monocytes # (Auto) 0.5 x10^3/uL (0.0-1.1) Eosinophils # (Auto) 0.2 x10^3/uL (0.0-0.7) Basophils # (Auto) 0.0 x10^3/uL (0.0-0.2) Sodium Level 136 mmol/L (136-145) Potassium Level 4.8 mmol/L (3.5-5.1) Chloride Level 101 mmol/L (98-107) Carbon Dioxide Level 31 mmol/L (21-32) Anion Gap 4 (6-14) Blood Urea Nitrogen 15 mg/dL (7-20) Creatinine 0.7 mg/dL (0.6-1.0) Estimated GFR (Cockcroft-Gault) 82.3 Glucose Level 112 mg/dL (70-99) Calcium Level 8.4 mg/dL (8.5-10.1) Medications Active Scripts Medications Dose Route/Sig Max Daily Dose Days Date Category Dose Instructions Symbicort 80-4.5 Mcg Inhaler (Budesonide/Formoterol Fumarate) 10.2 Gm Hfa.aer.ad 2 Puff IH BID 30 07/26/18 Rx Doxycycline Monohydrate 100 Mg Capsule 1 Cap PO BID 7 07/26/18 Rx Buspirone Hcl 15 Mg Tablet 1 Tab PO TID 07/24/18 Reported Meloxicam 7.5 Mg Tablet 7.5 Mg PO DAILY 07/24/18 Reported Gabapentin (Gabapentin) 300 Mg Capsule 300 Mg PO TID 07/24/18 Reported Oxycontin (Oxycodone HCl) 10 Mg Tab.er.12h 10 Mg PO TID 07/24/18 Reported Cartia Xt (Diltiazem Hcl) 180 Mg Cap.er.24h 180 Mg PO DAILY 07/24/18 Reported Reglan (Metoclopramide Hcl) 10 Mg Tablet 1 Tab PO QID PRN 11/09/17 Rx Culturelle (Lactobacillus Rhamnosus Gg) 1 Each Cap.sprink 1 Cap PO BID 05/12/17 Rx Levothyroxine Sodium 150 Mcg Tablet 1 Tab PO DAILY07 05/09/17 Reported Ropinirole Hcl 1 Mg Tablet 1 Mg PO TID 11/15/16 Reported Donepezil Hcl 10 Mg Tablet 1 Tab PO DAILY 08/15/16 Reported Lorazepam 1 Mg Tablet 0.5 Mg PO QID 08/15/16 Reported Duloxetine Hcl 60 Mg Capsule. 60 Mg PO BID 08/15/16 Reported Cyclobenzaprine Hcl 10 Mg Tablet 1 Tab PO BID 08/15/16 Reported Lidoderm (Lidocaine) 700 Mg Adh..patch 1 Patch TP HS 06/02/16 Reported Aspir 81 (Aspirin) 81 Mg Tablet.dr 1 Tab PO DAILY 06/02/16 Reported Carbidopa-Levodopa 25-100 Tab (Carbidopa/Levodopa) 1 Each Tablet 1 Each PO Q12HR 04/16/16 Reported Mirtazapine 30 Mg Tab.rapdis 30 Mg PO HS 04/16/16 Reported Zolpidem Tartrate 5 Mg Tablet 1 Tab PO QHS 04/16/16 Reported Coreg (Carvedilol) 12.5 Mg Tablet 1 Tab PO BID 10/13/15 Reported . Clopidogrel (Clopidogrel Bisulfate) 75 Mg Tablet 75 Mg PO DAILYWBKFT 05/09/15 Rx Metformin Hcl 500 Mg Tablet 1 Tab PO BID 02/25/15 Reported Nexium Capsule (Esomeprazole Magnesium) 40 Mg Capsule.dr 40 Mg PO DAILY 09/01/13 Reported Impression . 1. Acute hypoxic respiratory failure, likely related to viral pneumonia. 2. High grade fever with mildly prominent interstitial infiltrate in the left upper lobe and right lower lobe, likely viral pneumonitis. 3. History of tobacco use, but quit 26 years ago, probably underlying mild chronic obstructive pulmonary disease. 4. Influenza screen negative, but symptoms highly suggesting viral infection. 5. Mild hyponatremia and hyperkalemia and needs to follow up. Plan . 1. Continue with present oxygen with gradual wean, keep saturation 92% and above. 2. CT chest reviewed/ LLL pneumonia 3. Continue empiric antibiotic. 4. Monitor fevers.resolved 5. Bronchodilators. dc plan per PCP on PO x EJ COLON MD Jul 27, 2018 10:20
[2018-07-27 10:53] VITALS: BP 189/82
--- NOTE | 2018-07-27 12:56 | PDOC3 ---
Discharge Summary Visit Information Date of Admission: Jul 25, 2018 Date of Discharge: Jul 27, 2018 Admitting Diagnosis Comment: Acute hypoxic respiratory failure, likely related to pneumonia - cont treatment. Consult pulm. BIPAP prn High grade fever - could be a viral pneumonia, rapid flu was negative Hyponatremia - follow labs, has mild/moderate protein calorie malnutrition based on this and muscular wasting Hyperkalemia - follow after IVF Hypomagnesemia - will replace CAD w/ stent - cont meds HTN - cont meds HLD - cont meds COPD - cont meds H/O CVA - monitor Parkinsons - cont meds DM - will cont to monitor Hypothyroidism - cont meds Depression/anxiety - cont meds GERD -cont PPI Factor V Leiden/DVT S/p Pacemaker - no issues Final Diagnosis Problems Medical Problems: (1) CAP (community acquired pneumonia) Status: Acute (2) COPD exacerbation Status: Acute (3) Fever Status: Acute Brief Hospital Course Allergies Allergies Coded Allergies Type Severity Reaction Last Updated Verified Sulfa (Sulfonamide Antibiotics) Allergy Intermediate hives 11/01/17 Yes dexamethasone Allergy Intermediate 11/01/17 Yes Vital Signs Vital Signs Date Time Temp Pulse Resp B/P (MAP) Pulse Ox O2 Delivery O2 Flow Rate FiO2 07/27/18 12:51 94 Room Air 1.0 07/27/18 10:53 98.8 79 16 189/82 (117) 98.8 Lab Results Laboratory Tests Test 07/25/18 16:49 07/25/18 20:29 07/26/18 04:42 07/26/18 07:45 Glucose (Fingerstick) 117 mg/dL (70-99) 112 mg/dL (70-99) 131 mg/dL (70-99) White Blood Count 11.0 x10^3/uL (4.0-11.0) Red Blood Count 3.18 x10^6/uL (3.50-5.40) Hemoglobin 9.8 g/dL (12.0-15.5) Hematocrit 29.3 % (36.0-47.0) Mean Corpuscular Volume 92 fL (79-100) Mean Corpuscular Hemoglobin 31 pg (25-35) Mean Corpuscular Hemoglobin Concent 34 g/dL (31-37) Red Cell Distribution Width 14.9 % (11.5-14.5) Platelet Count 307 x10^3/uL (140-400) Neutrophils (%) (Auto) 78 % (31-73) Lymphocytes (%) (Auto) 16 % (24-48) Monocytes (%) (Auto) 5 % (0-9) Eosinophils (%) (Auto) 0 % (0-3) Basophils (%) (Auto) 0 % (0-3) Neutrophils # (Auto) 8.6 x10^3uL (1.8-7.7) Lymphocytes # (Auto) 1.7 x10^3/uL (1.0-4.8) Monocytes # (Auto) 0.6 x10^3/uL (0.0-1.1) Eosinophils # (Auto) 0.0 x10^3/uL (0.0-0.7) Basophils # (Auto) 0.0 x10^3/uL (0.0-0.2) Sodium Level 135 mmol/L (136-145) Potassium Level 4.7 mmol/L (3.5-5.1) Chloride Level 101 mmol/L (98-107) Carbon Dioxide Level 28 mmol/L (21-32) Anion Gap 6 (6-14) Blood Urea Nitrogen 15 mg/dL (7-20) Creatinine 0.9 mg/dL (0.6-1.0) Estimated GFR (Cockcroft-Gault) 61.5 Glucose Level 151 mg/dL (70-99) Calcium Level 7.9 mg/dL (8.5-10.1) Test 07/26/18 10:51 07/26/18 20:57 07/27/18 04:53 07/27/18 07:41 Glucose (Fingerstick) 158 mg/dL (70-99) 120 mg/dL (70-99) 106 mg/dL (70-99) White Blood Count 7.3 x10^3/uL (4.0-11.0) Red Blood Count 3.34 x10^6/uL (3.50-5.40) Hemoglobin 10.4 g/dL (12.0-15.5) Hematocrit 30.7 % (36.0-47.0) Mean Corpuscular Volume 92 fL (79-100) Mean Corpuscular Hemoglobin 31 pg (25-35) Mean Corpuscular Hemoglobin Concent 34 g/dL (31-37) Red Cell Distribution Width 15.1 % (11.5-14.5) Platelet Count 327 x10^3/uL (140-400) Neutrophils (%) (Auto) 67 % (31-73) Lymphocytes (%) (Auto) 24 % (24-48) Monocytes (%) (Auto) 6 % (0-9) Eosinophils (%) (Auto) 2 % (0-3) Basophils (%) (Auto) 0 % (0-3) Neutrophils # (Auto) 4.9 x10^3uL (1.8-7.7) Lymphocytes # (Auto) 1.7 x10^3/uL (1.0-4.8) Monocytes # (Auto) 0.5 x10^3/uL (0.0-1.1) Eosinophils # (Auto) 0.2 x10^3/uL (0.0-0.7) Basophils # (Auto) 0.0 x10^3/uL (0.0-0.2) Sodium Level 136 mmol/L (136-145) Potassium Level 4.8 mmol/L (3.5-5.1) Chloride Level 101 mmol/L (98-107) Carbon Dioxide Level 31 mmol/L (21-32) Anion Gap 4 (6-14) Blood Urea Nitrogen 15 mg/dL (7-20) Creatinine 0.7 mg/dL (0.6-1.0) Estimated GFR (Cockcroft-Gault) 82.3 Glucose Level 112 mg/dL (70-99) Calcium Level 8.4 mg/dL (8.5-10.1) Test 07/27/18 11:47 Glucose (Fingerstick) 123 mg/dL (70-99) Laboratory Tests Test 07/26/18 20:57 07/27/18 04:53 07/27/18 07:41 07/27/18 11:47 Glucose (Fingerstick) 120 mg/dL (70-99) 106 mg/dL (70-99) 123 mg/dL (70-99) White Blood Count 7.3 x10^3/uL (4.0-11.0) Red Blood Count 3.34 x10^6/uL (3.50-5.40) Hemoglobin 10.4 g/dL (12.0-15.5) Hematocrit 30.7 % (36.0-47.0) Mean Corpuscular Volume 92 fL (79-100) Mean Corpuscular Hemoglobin 31 pg (25-35) Mean Corpuscular Hemoglobin Concent 34 g/dL (31-37) Red Cell Distribution Width 15.1 % (11.5-14.5) Platelet Count 327 x10^3/uL (140-400) Neutrophils (%) (Auto) 67 % (31-73) Lymphocytes (%) (Auto) 24 % (24-48) Monocytes (%) (Auto) 6 % (0-9) Eosinophils (%) (Auto) 2 % (0-3) Basophils (%) (Auto) 0 % (0-3) Neutrophils # (Auto) 4.9 x10^3uL (1.8-7.7) Lymphocytes # (Auto) 1.7 x10^3/uL (1.0-4.8) Monocytes # (Auto) 0.5 x10^3/uL (0.0-1.1) Eosinophils # (Auto) 0.2 x10^3/uL (0.0-0.7) Basophils # (Auto) 0.0 x10^3/uL (0.0-0.2) Sodium Level 136 mmol/L (136-145) Potassium Level 4.8 mmol/L (3.5-5.1) Chloride Level 101 mmol/L (98-107) Carbon Dioxide Level 31 mmol/L (21-32) Anion Gap 4 (6-14) Blood Urea Nitrogen 15 mg/dL (7-20) Creatinine 0.7 mg/dL (0.6-1.0) Estimated GFR (Cockcroft-Gault) 82.3 Glucose Level 112 mg/dL (70-99) Calcium Level 8.4 mg/dL (8.5-10.1) Brief Hospital Course Ms. Knowles is a 73 old white female with a lot of comorbidities but none of them are related to current admission, admitted and treated for COPD exacerbation/ acute bronchitis. Comanagement pulmonary. Needed Pulmicort and doxycycline by mouth all on chart. Able to go home today with no PT needs DC time less than 30 minutes Discharge Information Condition at Discharge: Improved, Stable Disposition/Orders: D/C to Home Scheduled Aspirin (Aspir 81) 81 Mg Tablet.dr, 1 TAB PO DAILY, #30 Ref 5 (Reported) Entered as Reported by: MARK GARCIA on 06/02/16 1237 Last Action: Continued on 07/24/182309 by Thalia Teague RN Budesonide/Formoterol Fumarate (Symbicort 80-4.5 Mcg Inhaler) 10.2 Gm Hfa.aer.ad , 2 PUFF IH BID for COPD for 30 Days, #10.2 Ref 5 Prescribed by: JUSTUS DE JESUS MD on 07/26/18 1002 Buspirone Hcl (Buspirone Hcl) 15 Mg Tablet, 1 TAB PO TID for Anxiety/Depression , #60 (Reported) Entered as Reported by: Thalia Teague RN on 07/24/182245 Last Action: Converted on 07/24/182309 by Thalia Teague RN Carbidopa/Levodopa (Carbidopa-Levodopa 25-100 Tab) 1 Each Tablet, 1 EACH PO Q12HR for Parkinson, (Reported) Entered as Reported by: ÁNGEL LOO on 04/16/16 0820 Last Action: Continued on 07/24/182309 by Thalia Teague RN Carvedilol (Coreg ) 12.5 Mg Tablet, 1 TAB PO BID for hypertension, #180 Ref 1 (Reported) . Entered as Reported by: XUAN HERNANDEZ on 10/13/15 2204 Last Action: Continued on 07/24/182309 by Thalia Teague RN Clopidogrel Bisulfate (Clopidogrel) 75 Mg Tablet, 75 MG PO DAILYWBATRIUM HEALTH, #30 Ref 1 Prescribed by: RICHARD REESE MD on 05/09/15 1242 Cyclobenzaprine Hcl (Cyclobenzaprine Hcl) 10 Mg Tablet, 1 TAB PO BID for MUscle spasm, #90 (Reported) Entered as Reported by: WILLARD CERVANTES on 08/15/16 1519 Last Action: Edited on 07/25/18 0014 by Thalia Teague RN Diltiazem Hcl (Cartia Xt) 180 Mg Cap.er.24h, 180 MG PO DAILY for Afib, (Reported ) Entered as Reported by: Thalia Teague RN on 07/24/182245 Last Action: Converted on 07/24/182309 by Thalia Teague RN Donepezil Hcl (Donepezil Hcl) 10 Mg Tablet, 1 TAB PO DAILY, #90 Ref 1 (Reported) Entered as Reported by: WILLARD CERVANTES on 08/15/161518 Last Action: Converted on 07/24/182309 by Thalia Teague RN Doxycycline Monohydrate (Doxycycline Monohydrate) 100 Mg Capsule, 1 CAP PO BID for CAP for 7 Days, #14 Prescribed by: JUSTUS DE JESUS MD on 07/26/18 1002 Duloxetine Hcl (Duloxetine Hcl) 60 Mg Capsule.dr, 60 MG PO BID for Depression, ( Reported) Entered as Reported by: WILLARD CERVANTES on 08/15/161518 Last Action: Converted on 07/24/182309 by Thalia Teague RN Esomeprazole Magnesium (Nexium Capsule) 40 Mg Capsule.dr, 40 MG PO DAILY for gastric upset, (Reported) Entered as Reported by: MARIAA WILKINS on 09/01/13 1539 Last Action: Converted on 07/24/182309 by Thalia Teague RN Gabapentin (Gabapentin ) 300 Mg Capsule, 300 MG PO TID for NEUROGENIC PAIN, ( Reported) Entered as Reported by: Thalia Teague RN on 07/24/182245 Last Action: Continued on 07/24/182309 by Thalia Teague RN Lactobacillus Rhamnosus Gg (Culturelle) 1 Each Cap.sprink, 1 CAP PO BID, #60 Prescribed by: JENS AZAR on 05/12/17 1047 Levothyroxine Sodium (Levothyroxine Sodium) 150 Mcg Tablet, 1 TAB PO DAILY07, # 30 Ref 5 (Reported) Entered as Reported by: GILA OH RPH on 05/09/17 1545 Last Action: Converted on 07/24/182309 by Thalia Teague RN Lidocaine (Lidoderm) 700 Mg Adh..patch, 1 PATCH TP HS for Back pain, #30 Ref 1 ( Reported) Entered as Reported by: MARK GARCIA on 06/02/16 1237 Last Action: Converted on 07/24/182309 by Thalia Teague RN Lorazepam (Lorazepam) 1 Mg Tablet, 0.5 MG PO QID for Anxiety, #90 (Reported) Entered as Reported by: WILLARD CERVANTES on 08/15/16 1519 Last Action: Continued on 07/24/182309 by Thalia Teague RN Meloxicam (Meloxicam) 7.5 Mg Tablet, 7.5 MG PO DAILY for Mascle pain, (Reported) Entered as Reported by: Thalia Teague RN on 07/24/182245 Last Action: Converted on 07/24/182309 by Thalia Teague RN Metformin Hcl (Metformin Hcl) 500 Mg Tablet, 1 TAB PO BID for antidiabetic, #60 Ref 3 (Reported) Entered as Reported by: JULIOCESAR LYLES on 02/25/15 1345 Last Action: Converted on 07/24/182309 by Thalia Teague RN Mirtazapine (Mirtazapine) 30 Mg Tab.rapdis, 30 MG PO HS, (Reported) Entered as Reported by: ÁNGEL LOO on 04/16/16 0814 Last Action: Converted on 07/24/182309 by Thalia Teague RN Oxycodone HCl (Oxycontin) 10 Mg Tab.er.12h, 10 MG PO TID for Pain, (Reported) Entered as Reported by: Thalia Teague RN on 07/24/182245 Last Action: Continued on 07/24/182309 by Thalia Teague RN Ropinirole Hcl (Ropinirole Hcl) 1 Mg Tablet, 1 MG PO TID, (Reported) Entered as Reported by: Danelle Arredondo on 11/15/16 0054 Last Action: Converted on 07/24/182309 by Thalia Teague RN Zolpidem Tartrate (Zolpidem Tartrate) 5 Mg Tablet, 1 TAB PO QHS, #30 Ref 2 ( Reported) Entered as Reported by: ÁNGEL LOO on 04/16/16 0814 Last Action: Continued on 07/24/182309 by Thalia Teague RN Scheduled PRN Metoclopramide Hcl (Reglan) 10 Mg Tablet, 1 TAB PO QID PRN for NAUSEA, #120 Prescribed by: SHERLEY BARBOUR on 11/09/17 0816 Last Action: Continued on 07/24/182309 by Thalia Teague RN Discontinued Medications Buspirone Hcl (Buspirone Hcl) 15 Mg Tablet, 15 MG PO BID for antianxiety, ( Reported) . Entered as Reported by: MARIAA WILKINS on 09/01/13 1528 Last Action: Discontinued on 07/24/182309 by Thalia Teague RN Cephalexin (Cephalexin) 500 Mg Tablet, 1 TAB PO QID, #40 Prescribed by: ANTONIO WHYTE MD on 01/11/182 Cholecalciferol (Vitamin D3) (Vitamin D3) 5,000 Unit Tablet, 5,000 UNIT PO DAILY , (Reported) Entered as Reported by: MARIAA WILKINS on 09/01/13 1643 Last Action: Discontinued on 07/24/182245 by Thalia Teague RN Clindamycin Hcl (Clindamycin Hcl) 300 Mg Capsule, 1 CAP PO TID for Infection, # 30 Prescribed by: PHYLLIS PHILLIPS D.O. on 05/31/182026 Clopidogrel Bisulfate (Clopidogrel) 75 Mg Tablet, 75 MG PO HS for TO PREVENT BLOOD CLOTS, #30 Ref 0 (Reported) Entered as Reported by: Thalia Teague RN on 07/24/182245 Last Action: Discontinued on 07/24/182249 by Thalia Teague RN Cyclobenzaprine Hcl (Cyclobenzaprine Hcl) 10 Mg Tablet, 2 TAB PO DAILY, #90 ( Reported) Entered as Reported by: WILLARD CERVANTES on 08/15/16 1519 Last Action: Discontinued on 07/24/182245 by Thalia Teague RN Diltiazem Hcl (Cardizem Cd) 180 Mg Cap.er.24h, 1 CAP PO DAILY, #90 Ref 1 ( Reported) Entered as Reported by: MARK GARCIA on 06/02/16 1237 Last Action: Discontinued on 07/24/182245 by Thalia Teague RN Docusate Sodium (Colace) 100 Mg Capsule, 1 CAP PO BID for stool softener, #30 ( Reported) Entered as Reported by: KENNEDY MCNEIL on 02/12/15 191 Last Action: Discontinued on 07/24/182245 by Thalia Teague RN Ferrous Sulfate (Slow Release Iron) 142 Mg Tablet.er, 142 MG PO, (Reported) Entered as Reported by: WILLARD CERVANTES on 08/15/16 1519 Last Action: Discontinued on 07/24/182245 by Thalia Teague RN Magnesium Oxide (Magnesium Oxide) 400 Mg Tablet, 400 MG PO BID for Magnesium supplement, (Reported) Entered as Reported by: XUAN HERNANDEZ on 10/13/155 Last Action: Discontinued on 07/24/182245 by Thalia Teague RN Melatonin/Pyridoxine (Melatonin 3 Mg Tablet) 1 Each Tablet, 4 EACH PO HS, ( Reported) Entered as Reported by: WILLARD CERVANTES on 08/15/16 1519 Last Action: Discontinued on 07/24/182245 by Thalia Teague RN Oxycodone Hcl (Oxycodone Hcl Immed.release) 10 Mg Tablet, 2 TAB PO HS, #120 ( Reported) Entered as Reported by: MARK GARCIA on 06/02/16 1237 Last Action: Discontinued on 07/24/182245 by Thalia Teague RN Primidone (Primidone) 50 Mg Tablet, 100 MG PO TID, (Reported) Entered as Reported by: MARK GARCIA on 06/02/16 1237 Last Action: Discontinued on 07/25/18 0014 by Thalia Teague RN Vitamin E (Dl,Tocopheryl Acet) (Vitamin E) 100 Unit Capsule, 100 UNIT PO DAILY, (Reported) Entered as Reported by: MARK GARCIA on 06/02/16 1237 Last Action: Discontinued on 07/24/182245 by DARRION Flores CHERRIE Y MD Jul 27, 2018 12:56
--- NOTE | 2018-07-27 14:53 | NUR ---
Discharge Note: LAYLA ROSSI [address] [place] [address] Discharge instructions and discharge home medications reviewed with Patient and a copy given. All questions have been answered and understanding verbalized. The following instructions and handouts were given: Diet, activity, medication list and follow up instructions provided to patient. Discontinued lines and drains: Peripheral IV discontinued and catheter intact. Patient discharged to Home or Self Care withFamily Membervia Wheelchair
[2018-07-27] MEDS ORDERED: ENOXAPARIN 40 MG/0.4 ML SYRINGE. SQ SCH (17:00)
== END 2018-07-27 14:30 | disposition home or self-care (01) | DRG 871 ==
LOC: ER 16:49 → 6 SOUTH 18:00
PROVIDERS: ADMIT Internal Medicine; ATTEND Internal Medicine
DX: A41.9 Sepsis, unspecified organism (principal); J12.9 Viral pneumonia, unspecified; J96.01 Acute respiratory failure with hypoxia; J44.1 Chronic obstructive pulmonary disease with (acute) exacerbation; E87.1 Hypo-osmolality and hyponatremia; J44.0 Chronic obstructive pulmonary disease with (acute) lower respiratory infection; D68.51 Activated protein C resistance; E44.0 Moderate protein-calorie malnutrition; E83.42 Hypomagnesemia; E87.5 Hyperkalemia; G89.29 Other chronic pain; E03.9 Hypothyroidism, unspecified; F32.9 Major depressive disorder, single episode, unspecified; F41.9 Anxiety disorder, unspecified; E78.5 Hyperlipidemia, unspecified; Z96.659 Presence of unspecified artificial knee joint; G20 Parkinson's disease; I10 Essential (primary) hypertension; I25.10 Atherosclerotic heart disease of native coronary artery without angina pectoris; K21.9 Gastro-esophageal reflux disease without esophagitis; I48.91 Unspecified atrial fibrillation; Z79.51 Long term (current) use of inhaled steroids; Z79.82 Long term (current) use of aspirin; Z79.84 Long term (current) use of oral hypoglycemic drugs; Z86.73 Personal history of transient ischemic attack (TIA), and cerebral infarction without residual deficits; Z68.37 Body mass index [BMI] 37.0-37.9, adult; Z79.899 Other long term (current) drug therapy; Z87.891 Personal history of nicotine dependence; Z90.710 Acquired absence of both cervix and uterus; Z95.0 Presence of cardiac pacemaker; Z95.5 Presence of coronary angioplasty implant and graft; Z88.2 Allergy status to sulfonamides; Z88.8 Allergy status to other drugs, medicaments and biological substances
CPT/HCPCS: 36415; 36600; 70450; 71045; 71250; 80048; 80053; 81001; 82553; 82805; 82962; 83605; 83690; 83735; 83880; 84484; 85007; 85025; 85610; 87040; 87086; 87804; 93005; 94640; 94760; 96361; 96365; 96375; 96376; J0456; J0696; J1650; J2930; J3475; J3490; J7030; J7620; J8597; P9612; 99285-25

== ENCOUNTER 2018-08-09 19:53 | Inpatient (IN) | payer MEDICARE ==
[~2018-08-09] VITALS: Ht 160 cm; Wt 83.0 kg
[~2018-08-09 19:53] MED LIST changes: +BUDE10.22 IH; +DILT180C64 PO; +DOXY100C14 PO; +GABA300C18 PO; +MELO7.5T29 PO; +OXYC10TA46 PO
[2018-08-09 20:25] LABS: BILIRUBIN,URINE NEGATIVE (NEG); CLARITY,URINE CLEAR; COLOR,URINE YELLOW; NITRITE,URINE NEGATIVE (NEG); PROTEIN,URINE NEGATIVE (NEG-TRACE); UROBILINOGEN,URINE 0.2 mg/dL (0.2 mg/dL)
[2018-08-09 20:33] LABS: BACTERIA,URINE 0 /HPF (0-FEW); RBC,URINE RARE /HPF (0-2); SQUAMOUS EPITHELIAL CELL,UR FEW /LPF; WBC,URINE RARE /HPF (0-4)
--- NOTE | 2018-08-09 20:36 | RAD ---
PQRS Compliance statement: One or more of the following individualized dose reduction techniques were utilized for this examination: 1. Automated exposure control. 2. Adjustment of the mA and/or kV according to patient size. 3. Use of iterative reconstruction technique. Indication:Upper ext weakness, CODE STROKE TECHNIQUE: CT head without IV contrast COMPARISON:07/24/2018 FINDINGS: No pathologic extra-axial or intra-axial fluid collection. Mild diffuse atrophy with ex vacuo dilation of the ventricles. The basal cisterns are within normal limits. Confluent low-attenuation is seen in the periventricular and deep white matter. No acute intracranial bleed. No focal loss of noel-white differentiation. Orbits within normal limits. No suspicious calvarial lesion. Visualized paranasal sinuses and mastoid air cells are clear. IMPRESSION: 1. No acute intracranial bleed. If concern for acute ischemic stroke is high, please consider MRI brain. 2. Multifocal white matter changes likely secondary to chronic microvascular ischemic disease. Critical findings were identified on 08/09/2018 8:31 PM, read back and verified with Dr. Kenney on 08/09/2018 8:[address] Joe Gilbert DO. Electronically signed by: Joe Gilbert DO (08/09/2018 8:33 PM) [facility]
--- NOTE | 2018-08-09 20:39 | PHYS DOC ---
Past Medical History Past Medical History: Anxiety, CAD, CVA, Depression, Diabetes-Type II, DVT, [place] Additional Past Medical Histor: PARKINSON'S, GASTROPARESIS, CHRONIC BACK PAIN; factor V Past Surgical History: , Hysterectomy, Knee Replacement, Pacemaker, Tonsillectomy Additional Past Surgical Histo: CARDIAC STENT, BLADDER SX, BOWEL RESECTION, RIGHT SHOULDER SX, CATARACT SX Alcohol Use: None Drug Use: None Adult General Chief Complaint Chief Complaint: NEURO SYMPTOMS/DEFICITS HPI HPI Patient is a 73 year old female with history of Parkinson's disease, previous CVA with residual left upper and left lower deficits presents with generalized weakness, fatigue, left facial droop and decreased sensation. Symptom onset was earlier this afternoon. Patient's facial droop, paresthesias of since resolved. Left upper and left lower extremity weakness is unchanged from baseline. Denies headache, blurred vision, fever, chills, nausea, vomiting or sweats. No chest pain palpitations shortness of breath. No urinary frequency urgency or dysuria. No other acute symptoms or complaints.[] Review of Systems Review of Systems ROS as per HPI All other systems were reviewed and found to be within normal limits, except as documented in this note. Current Medications Current Medications Current Medications Medications (Trade) Dose Ordered Sig/Carlene Start Time Stop Time Status Last Admin Dose Admin Fentanyl Citrate (Fentanyl 2ml Vial) 25 mcg 1X ONCE 08/09/18 21:30 08/09/18 21:31 DC 08/09/18 21:25 25 MCG Ketorolac Tromethamine (Toradol 15mg Vial) 15 mg 1X ONCE 08/09/18 21:30 08/09/18 21:31 DC 08/09/18 21:25 15 MG Ondansetron HCl (Zofran) 4 mg 1X ONCE 08/09/18 21:30 08/09/18 21:31 DC 08/09/18 21:24 4 MG Allergies Allergies Allergies Coded Allergies Type Severity Reaction Last Updated Verified Sulfa (Sulfonamide Antibiotics) Allergy Intermediate hives 11/01/17 Yes dexamethasone Allergy Intermediate 11/01/17 Yes Physical Exam Physical Exam Constitutional: Well developed, well nourished, no acute distress, non-toxic appearance. [] HENT: Normocephalic, atraumatic, bilateral external ears normal, oropharynx moist, nose normal. [] Eyes: PERRLA, EOMI, conjunctiva normal. [] Neck: Normal range of motion. [] Cardiovascular:Heart rate regular rhythm, no murmur. [] Lungs & Thorax: Bilateral breath sounds clear to auscultation. [] Abdomen: Bowel sounds normal, soft, no tenderness. [] Skin: Warm, dry, no erythema, no rash. [] Back: No tenderness, no CVA tenderness. [] Extremities: No tenderness, no cyanosis, no clubbing, ROM intact, no edema. [] Neurologic: Alert and oriented X 3, decreased sensation, left cheek, CN 2-12 otherwise grossly intact, weakness. L lower extremities, NIH score of 3 per nurse . [] Psychologic: Affect normal, judgement normal, mood normal. [] Current Patient Data Vital Signs Vital Signs Date Time Temp Pulse Resp B/P (MAP) Pulse Ox O2 Delivery O2 Flow Rate FiO2 08/09/18 22:20 68 27 92 08/09/18 20:00 98.4 196/71 (112) Room Air 98.4 Lab Values Laboratory Tests Test 08/09/18 20:05 08/09/18 20:15 08/09/18 20:40 08/09/18 20:45 Urine Collection Type Unknown Urine Color Yellow Urine Clarity Clear Urine pH 7.0 Urine Specific [place] <=1.005 Urine Protein Negative mg/dL (NEG-TRACE) Urine Glucose (UA) Negative mg/dL (NEG) Urine Ketones (Stick) Negative mg/dL (NEG) Urine Blood Negative (NEG) Urine Nitrite Negative (NEG) Urine Bilirubin Negative (NEG) Urine Urobilinogen Dipstick 0.2 mg/dL (0.2 mg/dL) Urine Leukocyte Esterase Negative (NEG) Urine RBC Rare /HPF (0-2) Urine WBC Rare /HPF (0-4) Urine Squamous Epithelial Cells Few /LPF Urine Bacteria 0 /HPF (0-FEW) White Blood Count 8.8 x10^3/uL (4.0-11.0) Red Blood Count 3.52 x10^6/uL (3.50-5.40) Hemoglobin 10.9 g/dL (12.0-15.5) L Hematocrit 32.5 % (36.0-47.0) L Mean Corpuscular Volume 92 fL (79-100) Mean Corpuscular Hemoglobin 31 pg (25-35) Mean Corpuscular Hemoglobin Concent 34 g/dL (31-37) Red Cell Distribution Width 15.0 % (11.5-14.5) H Platelet Count 332 x10^3/uL (140-400) Thyroid Stimulating Hormone (TSH) 0.497 uIU/mL (0.358-3.74) Glucose (Fingerstick) 97 mg/dL (70-99) Prothrombin Time 12.1 SEC (11.7-14.0) Prothrombin Time INR 0.9 (0.8-1.1) PTT 27 SEC (24-38) Sodium Level 131 mmol/L (136-145) L Potassium Level 4.2 mmol/L (3.5-5.1) Chloride Level 92 mmol/L (98-107) L Carbon Dioxide Level 31 mmol/L (21-32) Anion Gap 8 (6-14) Blood Urea Nitrogen 17 mg/dL (7-20) Creatinine 0.8 mg/dL (0.6-1.0) Estimated GFR (Cockcroft-Gault) 70.5 Glucose Level 108 mg/dL (70-99) H Calcium Level 8.6 mg/dL (8.5-10.1) Test 08/09/18 21:08 O2 Saturation 91 % (92-99) L Arterial Blood pH 7.40 (7.35-7.45) Arterial Blood pCO2 at Patient Temp 45 mmHg (35-46) Arterial Blood pO2 at Patient Temp 63 mmHg (65-108) L Arterial Blood HCO3 27 mmol/L (21-28) Arterial Blood Base Excess 2 mmol/L (-3-3) Laboratory Tests 08/09/18 20:15 Laboratory Tests 08/09/18 20:45 EKG EKG [EKG: Reviewed] Radiology/Procedures Radiology/Procedures [CT head no acute findings per radiology report] Course & Med Decision Making Course & Med Decision Making Pertinent Labs and Imaging studies reviewed. (See chart for details) [Patient with facial droop resolving prior to ED arrival residual numbness noticed left cheek. Left upper and left lower extremity weakness appear to be residual and are not more pronounced since facial weakness noted. Patient does ambulate with steady gait. unable to drink water without gagging. We'll keep nothing by mouth. Patient complaints of headache and noted to be hypertensive with systolic in the 180s. Headache addressed blood pressure monitored. neurology to consult Keila to admit with anticipated neurology consult in a.m.] Mike Disclaimer Dragon Disclaimer This electronic medical record was generated, in whole or in part, using a voice recognition dictation system. Departure Departure Impression: Primary Impression: CVA (cerebral vascular accident) Additional Impression: Parkinson disease Disposition: 09 ADMITTED INPATIENT Admitting Physician: Hilary Pedraza Condition: STABLE Referrals: DB BAILEY MD (PCP) Problem Qualifiers DELL TORRES DO Aug 09, 2018 20:39
[2018-08-09 20:51] LABS: HEMATOCRIT 32.5 % (36.0-47.0); HEMOGLOBIN 10.9 g/dL (12.0-15.5); RED BLOOD COUNT 3.52 x10^6/uL (3.50-5.40); WHITE BLOOD COUNT 8.8 x10^3/uL (4.0-11.0)
[2018-08-09 21:01] LABS: CALCIUM 8.6 mg/dL (8.5-10.1); CREATININE 0.8 mg/dL (0.6-1.0); GFR 70.5; POTASSIUM 4.2 mmol/L (3.5-5.1); PROTHROMBIN TIME PATIENT 12.1 SEC (11.7-14.0)
[2018-08-09] MEDS ORDERED: KETOROLAC 15 MG/ML VIAL. IV ONE (21:30)
[2018-08-09] MEDS ORDERED: ONDANSETRON PF 4 MG/2 ML VIAL. IV ONE (21:30)
[2018-08-09] MEDS ORDERED: fentaNYL PF VIAL 100 MCG/2 ML VIAL IV ONE (21:30)
[2018-08-09 22:45] LABS: BASE EXCESS ABG 2 mmol/L (-3-3); HCO3 ABG 27 mmol/L (21-28); PCO2 ABG 45 mmHg (35-46); PO2 ABG 63 mmHg (65-108); SAT O2 ABG 91 % (92-99)
[2018-08-09] MEDS ORDERED: MORPHINE SULFATE 4 MG/ML VIAL. IV ONE (23:30)
[2018-08-09] MEDS ORDERED: ONDANSETRON PF 4 MG/2 ML VIAL. IV PRN (23:30)
[2018-08-09] MEDS ORDERED: IV DEXTROSE 5 %-0.45 % NACL 1,000 ML IV ONE (23:30)
[2018-08-10] VITALS (8 sets, daily range): BP systolic 131–194; BP diastolic 63–86
[2018-08-10] MEDS ORDERED: DOCU50CA9 PO (03:12)
[2018-08-10] MEDS ORDERED: METH-39 PO (03:12)
[2018-08-10] MEDS ORDERED: CHOL500016 PO (03:12)
[2018-08-10] MEDS ORDERED: PRIM50TA24 PO (03:12)
[2018-08-10] MEDS ORDERED: VITA1000 PO (03:12)
[2018-08-10] MEDS ORDERED: MELA3TAB2 PO (03:12)
[2018-08-10] MEDS ORDERED: FERR325T14 PO (03:12)
[2018-08-10 06:14] LABS: BASO % 0 % (0-3); EOS # 0.1 x10^3/uL (0.0-0.7); EOS % 2 % (0-3); HEMATOCRIT 31.1 % (36.0-47.0); HEMOGLOBIN 10.4 g/dL (12.0-15.5); LYMPH # 2.2 x10^3/uL (1.0-4.8); LYMPH % 41 % (24-48); MEAN CORPUSCULAR HEMOGLOBIN 31 pg (25-35); MEAN CORPUSCULAR HGB CONC 34 g/dL (31-37); MEAN CORPUSCULAR VOLUME 92 fL (79-100); MONO # 0.4 x10^3/uL (0.0-1.1); MONO % 8 % (0-9); NEUT # 2.7 x10^3uL (1.8-7.7); NEUT % 50 % (31-73); PLATELET COUNT 288 x10^3/uL (140-400); RED BLOOD COUNT 3.37 x10^6/uL (3.50-5.40); RED CELL DISTRIBUTION WIDTH 14.7 % (11.5-14.5); WHITE BLOOD COUNT 5.5 x10^3/uL (4.0-11.0)
[2018-08-10 06:33] LABS: CALCIUM 8.5 mg/dL (8.5-10.1); CREATININE 0.9 mg/dL (0.6-1.0); GFR 61.5
--- NOTE | 2018-08-10 08:44 | EKG ---
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
--- NOTE | 2018-08-10 11:25 | HP ---
ADMIT DATE: 08/10/2018 CHIEF COMPLAINT: Facial numbness, dysphagia, left weakness, elevated blood pressure. HISTORY OF PRESENT ILLNESS: The patient is a pleasant 73-year-old female who presented with the above chief complaint. She is well known to our service. We do admit her periodically, which we had her within the past few weeks with pneumonia. At this time, she presented with neurologic symptoms. They did a CAT scan, it really did not show any acute changes, but clinically she seemed to have a stroke. She rates her symptoms as a 7/10. She has associated weakness, has been coming on for 8 hours. I discussed the case with ER physician. We are going to admit the patient and we are going to consult Neurology. PAST MEDICAL HISTORY: Previous stroke, anxiety, CAD, Parkinson's, depression, diabetes, DVT, myocardial infarction, gastroparesis, chronic pain, factor V Leiden mutation, , hysterectomy, knee replacement, pacemaker, tonsillectomy, cardiac stents, bladder surgery, bowel resection, right shoulder surgery and cataract surgery. ALLERGIES: SULFA AND DEXAMETHASONE. FAMILY HISTORY: Coronary artery disease. SOCIAL HISTORY: She does not drink, smoke or take drugs. She lives at home with her daughter. MEDICATIONS: Reviewed. She is on 30 including donepezil, cyclobenzaprine, iron, Plavix, Coreg, Cardizem, aspirin, meloxicam, oxycodone, gabapentin, duloxetine, mirtazapine, lorazepam, BuSpar, Ambien, Sinemet, Symbicort, stool softeners, fiber, Nexium, metoclopramide, lactobacillus, metformin, Synthroid, Lidoderm, vitamin D, melatonin, and vitamin E. REVIEW OF SYSTEMS: GENERAL: No history of weight change, weakness or fevers. SKIN: No bruising, hair changes or rashes. EYES: No blurred, double or loss of vision. NOSE AND THROAT: No history of nosebleeds, hoarseness or sore throat. HEART: No history of palpitations, chest pain or shortness of breath on exertion. LUNGS: Denies cough, hemoptysis, wheezing or shortness of breath. GASTROINTESTINAL: Denies changes in appetite, nausea, vomiting, diarrhea or constipation. GENITOURINARY: No history of frequency, urgency, hesitancy or nocturia. NEUROLOGIC: She complains of left face numbness and left-sided weakness. PSYCHIATRIC: No history of panic, anxiety or depression. ENDOCRINE: No history of heat or cold intolerance, polyuria or polydipsia. EXTREMITIES: Denies muscle weakness, joint pain, pain on walking or stiffness. PHYSICAL EXAMINATION: VITAL SIGNS: Temperature afebrile, pulse 68, respirations 22, blood pressure is down to 175/65. It was as high as 196/71. GENERAL: She is alert, cooperative, flat affect, but very pleasant. Her daughter is present. She is a good support for her. HEART: Normal S1, S2. LUNGS: Clear to auscultation. ABDOMEN: Soft, positive bowel sounds. EXTREMITIES: Trace edema. SKIN: No rash. ENDOCRINE: No thyromegaly. LYMPHATICS: No cervical nodes. HEMATOPOIETIC: No bruising. PSYCHIATRIC: She is stable. NEUROLOGICAL: She has got left-sided weakness. LABORATORY DATA: White count 8, hemoglobin 11, platelets are 332. Electrolytes are normal other than a sodium of 131. CT of the head showed no acute changes, but there is some microvascular disease. Urinalysis is negative. INR is 0.9. ASSESSMENT AND PLAN: Stroke symptoms. The patient is being admitted. We will consult Neurology. She will need aggressive PT, OT and speech therapy. She did in fact fail her swallow study. We are going to try to repeat that. Home meds, DVT prophylaxis. Full code. I have resumed her home meds. I have added in Lasix 40 mg IV every day and increased her Coreg. Long-term prognosis is guarded. I have reviewed the entire chart with her daughter. She was very appreciative. Total time 34 minutes. EWA CHAPPELL DO DR: BRIANA/baldomero JOB#: [id number] / [id number]
[2018-08-10] MEDS: DULoxetine HCL 30 MG CAPSULE.DR PO SCH ×2 (11:30→21:16)
[2018-08-10] MEDS: CARVEDILOL 12.5 MG TABLET. PO SCH ×2 (11:30→17:52)
[2018-08-10] MEDS: PANTOPRAZOLE 40 MG TABLET.DR. PO SCH (11:30)
[2018-08-10] MEDS: CLOPIDOGREL BISULFATE 75 MG TABLET PO SCH (11:30)
[2018-08-10] MEDS: CHOLECALCIFEROL (VITAMIN D3) 5,000 UNIT CAPSULE PO SCH (11:30)
[2018-08-10] MEDS: VITAMIN E 200 UNIT CAPSULE. PO SCH (11:30)
[2018-08-10] MEDS: LEVOTHYROXINE 150 MCG TABLET PO SCH (11:30)
[2018-08-10] MEDS: FERROUS SULFATE 325 MG TABLET. PO SCH (11:30)
[2018-08-10] MEDS ORDERED: DOCUSATE 100 MG/10 ML SOLUTION. PO PRN (11:30)
[2018-08-10] MEDS: MELOXICAM 7.5 MG TABLET PO SCH (11:30)
[2018-08-10] MEDS: DONEPEZIL HCL 10 MG TABLET. PO SCH (11:30)
[2018-08-10] MEDS: LACTOBACILLUS RHAMNOSUS GG 1 CAPSULE. PO SCH ×2 (11:30→21:14)
[2018-08-10] MEDS: ASPIRIN ENTERIC COATED 81 MG TABLET.DR. PO SCH (11:30)
--- NOTE | 2018-08-10 11:57 | NUR ---
I was informed in morning report that this pt failed the [facility] bedside swallow exam...did not see a ST Eval for pt so went ahead and entered it for the pt. She has been NPO since last night and has not had any of her meds. Gonzalo Valera RN
[2018-08-10] MEDS: metFORMIN 500 MG TABLET PO SCH ×2 (12:00→17:53)
[2018-08-10] MEDS: ALBUTEROL SULFATE 2.5 MG/3 ML NEBU. NEB SCH ×3 (12:00→20:17)
[2018-08-10] MEDS: BUDESONIDE 0.5 MG/2 ML NEBU. NEB SCH ×2 (12:00→20:17)
[2018-08-10] MEDS: CALCIUM POLYCARBOPHIL 625 MG TABLET PO SCH ×2 (12:00→21:16)
[2018-08-10] MEDS: CARBIDOPA/LEVODOPA 25/100MG TABLET PO SCH ×3 (13:00→21:17)
[2018-08-10] MEDS: FUROSEMIDE 40 MG/4 ML VIAL. IVP SCH (13:15)
[2018-08-10] MEDS: MORPHINE SULFATE 2 MG/ML VIAL. IV PRN (13:16)
[2018-08-10] MEDS: rOPINIRole 1 MG TABLET. PO SCH ×2 (14:00→21:14)
[2018-08-10] MEDS: busPIRone 5 MG TABLET. PO SCH ×2 (14:00→21:15)
[2018-08-10] MEDS: PRIMIDONE 50 MG TABLET PO SCH ×2 (14:00→21:16)
[2018-08-10] MEDS: CYCLOBENZAPRINE 10 MG TABLET. PO SCH ×2 (14:00→21:17)
[2018-08-10] MEDS: GABAPENTIN 300 MG CAPSULE. PO SCH ×2 (14:00→21:15)
[2018-08-10] MEDS: oxyCODONE ER 10 MG TAB.ER.12H PO SCH ×2 (15:18→21:30)
[2018-08-10] MEDS: LORazepam 0.5 MG TABLET PO SCH ×3 (15:20→21:16)
--- NOTE | 2018-08-10 16:39 | PDOC2 ---
NEUROLOGY CONSULT Date of Admission Date of Admission DATE: 08/10/18 TIME: 16:26 Reason for Consult Reason for Consult: Stroke symptoms, history of Parkinson's Referring Physician Referring Physician: Dr. Jeffrey PCP: Dr. Ron Source Source: Chart review, Patient History of Present Illness History of Present Illness The patient is a 73-year-old right-handed female who noticed some increased left -sided weakness and numbness yesterday. She had a stroke in September 2015 for which she was transferred to for intervention after receiving alteplase here. Residua was left hemiparesis and numbness, but she says these worsen. Blood pressure was up yesterday. She is feeling somewhat better today, but still says the numbness is worse than before. She has a pacemaker, so cannot have an MRI. She denies any headache, diplopia, dysphagia, dysarthria, history of head injury. She did have seizures at the time of her 2016 stroke. She follows with Dr. Rey and Dr. tSovall regarding her Parkinson's. Past Medical History Cardiovascular: AFIB, CAD, HTN, Other (mitral regurgitation) Pulmonary: COPD, Pneumonia, Other (sleep apnea) CENTRAL NERVOUS SYSTEM: CVA, Seizure, TIA, Other (Parkinson's) GI: Constipation, GERD, Irritable bowel disease, Peptic Ulcer disease, Other ( gastroparesis, diarrhea) Heme/Onc: Other (factor V Leiden deficiency) Psych: Anxiety, Depression Musculoskeletal: low back pain ENT: Other (glaucoma) Renal/: Urinary Incontinence Endocrine: Diabetes, Hypothyroidism Past Surgical History Past Surgical History: Pacemaker, Cataract Removal, Hernia Repair (umbilical), Tonsillectomy (/adenoids), Hysterectomy, Colon Resection, Other (cardiac catheterization, coronary stent, spinal) Family History Family History: Cancer Social History Social History , no alcohol or tobacco Current Medications Current Medications Current Medications Ketorolac Tromethamine (Toradol 15mg Vial) 15 mg 1X ONCE IV Last administered on 08/09/18at 21:25; Start 08/09/18 at 21:30; Stop 08/09/18 at 21:31; Status DC Fentanyl Citrate (Fentanyl 2ml Vial) 25 mcg 1X ONCE IV Last administered on 08/09/18at 21:25; Start 08/09/18 at 21:30; Stop 08/09/18 at 21:31; Status DC Ondansetron HCl (Zofran) 4 mg 1X ONCE IV Last administered on 08/09/18at 21:24; Start 08/09/18 at 21:30; Stop 08/09/18 at 21:31; Status DC Ondansetron HCl (Zofran) 4 mg PRN Q8HRS PRN IV NAUSEA/VOMITING; Start 08/09/18 at 23:30; Stop 08/10/18 at 23:29 Dextrose/Sodium Chloride 1,000 ml @ 125 mls/hr 1X ONCE IV Last administered on 08/10/18at 00:43; Start 08/09/18 at 23:30; Stop 08/10/18 at 07:29; Status DC Morphine Sulfate (Morphine Sulfate) 4 mg 1X ONCE IV Last administered on at 00:44; Start 08/09/18 at 23:30; Stop 08/09/18 at 23:31; Status DC Furosemide (Lasix) 40 mg DAILY IVP Last administered on 08/10/18at 13:15; Start 08/10/18 at 11:30 Aspirin (Ecotrin) 81 mg DAILY PO ; Start 08/10/18 at 11:30 Carbidopa/Levodopa (Sinemet 25/100) 2.5 tab QID PO ; Start 08/10/18 at 13:00 Carvedilol (Coreg) 12.5 mg BIDWMEALS PO Last administered on 08/10/18at 11:30; Start 08/10/18 at 11:30 Clopidogrel Bisulfate (Plavix) 75 mg DAILYWBKFT PO ; Start 08/10/18 at 11:30 Cyclobenzaprine HCl (Flexeril) 10 mg TID PO ; Start 08/10/18 at 14:00 Ferrous Sulfate (Feosol) 325 mg DAILY PO ; Start 08/10/18 at 11:30 Gabapentin (Neurontin) 300 mg TID PO ; Start 08/10/18 at 14:00 Lactobacillus Rhamnosus (Culturelle) 1 cap BID PO ; Start 08/10/18 at 11:30 Lorazepam (Ativan) 0.5 mg QID PO Last administered on 08/10/18at 15:20; Start 08/10/18 at 13:00 Metoclopramide HCl (Reglan) 10 mg PRN QID PRN PO NAUSEA; Start 08/10/18 at 11:00 Oxycodone HCl (OxyCONTIN) 10 mg Q8HRS PO Last administered on 08/10/18at 15:18; Start 08/10/18 at 14:00 Zolpidem Tartrate (Ambien) 5 mg QHS PO ; Start 08/10/18 at 21:00 Budesonide (Pulmicort) 0.5 mg RTBID NEB ; Start 08/10/18 at 12:00 Buspirone HCl (Buspar) 15 mg TID PO ; Start 08/10/18 at 14:00 Vitamin D (Vitamin D3) 5,000 unit DAILY PO ; Start 08/10/18 at 11:30 Diltiazem HCl (Cardizem 24hr Cd) 180 mg DAILY PO Last administered on 08/10/18at 15:18; Start 08/10/18 at 11:30 Docusate Sodium (Colace Solution) 50 mg PRN BID PRN PO CONSTIPATION; Start 08/10 at 11:30 Donepezil HCl (Aricept) 10 mg DAILY PO ; Start 08/10/18 at 11:30 Duloxetine HCl (Cymbalta) 60 mg BID PO ; Start 08/10/18 at 11:30 Pantoprazole Sodium (Protonix) 40 mg DAILYAC PO ; Start 08/10/18 at 11:30 Levothyroxine Sodium (Synthroid) 150 mcg DAILY06 PO ; Start 08/10/18 at 11:30 Lidocaine (Lidoderm) 1 patch QHS TD ; Start 08/10/18 at 21:00 Non-Formulary Medication (Melatonin ) 10 mg QHS PO ; Start 08/10/18 at 21:00; Status UNV Meloxicam (Mobic) 7.5 mg DAILY PO ; Start 08/10/18 at 11:30 Metformin HCl (Glucophage) 500 mg BIDWMEALS PO ; Start 08/10/18 at 12:00 Calcium Polycarbophil (Fibercon) 625 mg BID PO ; Start 08/10/18 at 12:00 Mirtazapine (Remeron) 30 mg QHS PO ; Start 08/10/18 at 21:00 Primidone (Mysoline) 50 mg TID PO ; Start 08/10/18 at 14:00 Ropinirole HCl (Requip) 1 mg TID PO ; Start 08/10/18 at 14:00 Vitamin E 1,000 unit DAILY PO ; Start 08/10/18 at 11:30 Albuterol Sulfate (Ventolin Neb Soln) 2.5 mg RTQID NEB ; Start 08/10/18 at 12:00 Miscellaneous (Lidoderm Patch Removal) 1 ea DAILY MC ; Start 08/11/18 at 09:00 Morphine Sulfate (Morphine Sulfate) 2 mg PRN Q2HR PRN IV PAIN Last administered on 08/10/18at 13:16; Start 08/10/18 at 13:15 Active Scripts Active Symbicort 80-4.5 Mcg Inhaler (Budesonide/Formoterol Fumarate) 10.2 Gm Hfa.aer.ad 2 Puff IH BID 30 Days Reglan (Metoclopramide Hcl) 10 Mg Tablet 1 Tab PO QID PRN Culturelle (Lactobacillus Rhamnosus Gg) 1 Each Cap.sprink 1 Cap PO BID Clopidogrel (Clopidogrel Bisulfate) 75 Mg Tablet 75 Mg PO DAILYWBKFT Reported Stool Softener (Docusate Sodium) 50 Mg Capsule 50 Mg PO PRN PRN Fiber (Methylcellulose) 500 Mg Tablet 500 Mg PO BID Mysoline (Primidone) 50 Mg Tablet 50 Mg PO TID Ferrous Sulfate 325 Mg Tablet 1 Tab PO DAILY Vitamin E 1,000 Unit Capsule 1,000 Unit PO PO Vitamin D3 (Cholecalciferol (Vitamin D3)) 5,000 Unit Tablet 1 Tab PO DAILY Melatonin 3 Mg Tablet 10 Mg PO QHS Buspirone Hcl 15 Mg Tablet 1 Tab PO TID Meloxicam 7.5 Mg Tablet 7.5 Mg PO DAILY Gabapentin (Gabapentin) 300 Mg Capsule 300 Mg PO TID Oxycontin (Oxycodone HCl) 10 Mg Tab.er.12h 10 Mg PO TID Cartia Xt (Diltiazem Hcl) 180 Mg Cap.er.24h 180 Mg PO DAILY Levothyroxine Sodium 150 Mcg Tablet 1 Tab PO DAILY07 Ropinirole Hcl 1 Mg Tablet 1 Mg PO TID Donepezil Hcl 10 Mg Tablet 1 Tab PO DAILY Lorazepam 1 Mg Tablet 0.5 Mg PO QID Duloxetine Hcl 60 Mg Capsule.dr 60 Mg PO BID Cyclobenzaprine Hcl 10 Mg Tablet 1 Tab PO TID Lidoderm (Lidocaine) 700 Mg Adh..patch 1 Patch TP HS Aspir 81 (Aspirin) 81 Mg Tablet.dr 1 Tab PO DAILY Carbidopa-Levodopa 25-100 Tab (Carbidopa/Levodopa) 1 Each Tablet 2.5 Tab PO Q3HR W/A Mirtazapine 30 Mg Tab.rapdis 30 Mg PO HS Zolpidem Tartrate 5 Mg Tablet 1 Tab PO QHS Coreg (Carvedilol) 12.5 Mg Tablet 1 Tab PO BID . Metformin Hcl 500 Mg Tablet 1 Tab PO BID Nexium Capsule (Esomeprazole Magnesium) 40 Mg Capsule.dr 40 Mg PO DAILY Allergies Allergies: Coded Allergies: Sulfa (Sulfonamide Antibiotics) (Verified Allergy, Intermediate, hives, ) dexamethasone (Verified Allergy, Intermediate, 11/01/17) ROS Review of System Negative for fever, chills, weight loss, shortness of breath, chest pain, indigestion, hematochezia, melena, and dysuria. Full 14-point review of systems is negative. Physical Exam Physical Examination General: Well-developed, well-nourished white female in no acute distress HEENT: Normocephalic andatraumatic. Temporal arteriespulsatile and nontender. Neck: Supple without bruit, no meningismus Musculoskeletal: Stability:see neurologic. Gait exam:see neurologic. Tone:see neurologic. Strength:see neurologic. Neurological: Mental Status:intact, orientation, memory, attention span/concentration, language, fund of knowledge normal. Cranial Nerves:Pupils reactive to light, left pupil larger than right ever since stroke, she says, extraocular movements areintact, visual martinez are full to confrontation. Facial sensation is normal. There is no facial asymmetry. Vestibulo-ocular reflex is intact. Palate elevates and tongue protrudes in midline. All other cranial related problems are negative except as mentioned before.Reflexes:2+ and symmetric with flexor plantar responses. Motor:4/5 strength, a little weaker on the left, with normal bulk. There is cogwheel rigidity, mild resting tremor as well as postural tremor, bradykinesia, masked facies. Coordination:Finger-nose finger and aqgy-ll-[id number] testing are normal. Rapid alternating movements and fine finger movements are intact. Gait:Arthritic. Sensory:Patchy loss on left side which she says is new Vitals VITALS Vital Signs Date Time Temp Pulse Resp B/P (MAP) Pulse Ox O2 Delivery O2 Flow Rate FiO2 08/10/18 15:18 73 194/74 08/10/18 15:18 Room Air 08/10/18 15:00 98.5 18 93 98.5 Labs Labs Laboratory Tests Test 08/09/18 20:05 08/09/18 20:15 08/09/18 20:40 08/09/18 20:45 Urine Collection Type Unknown Urine Color Yellow Urine Clarity Clear Urine pH 7.0 Urine Specific [place] <=1.005 Urine Protein Negative mg/dL (NEG-TRACE) Urine Glucose (UA) Negative mg/dL (NEG) Urine Ketones (Stick) Negative mg/dL (NEG) Urine Blood Negative (NEG) Urine Nitrite Negative (NEG) Urine Bilirubin Negative (NEG) Urine Urobilinogen Dipstick 0.2 mg/dL (0.2 mg/dL) Urine Leukocyte Esterase Negative (NEG) Urine RBC Rare /HPF (0-2) Urine WBC Rare /HPF (0-4) Urine Squamous Epithelial Cells Few /LPF Urine Bacteria 0 /HPF (0-FEW) White Blood Count 8.8 x10^3/uL (4.0-11.0) Red Blood Count 3.52 x10^6/uL (3.50-5.40) Hemoglobin 10.9 g/dL (12.0-15.5) Hematocrit 32.5 % (36.0-47.0) Mean Corpuscular Volume 92 fL (79-100) Mean Corpuscular Hemoglobin 31 pg (25-35) Mean Corpuscular Hemoglobin Concent 34 g/dL (31-37) Red Cell Distribution Width 15.0 % (11.5-14.5) Platelet Count 332 x10^3/uL (140-400) Thyroid Stimulating Hormone (TSH) 0.497 uIU/mL (0.358-3.74) Glucose (Fingerstick) 97 mg/dL (70-99) Prothrombin Time 12.1 SEC (11.7-14.0) Prothromb Time International Ratio 0.9 (0.8-1.1) Activated Partial Thromboplast Time 27 SEC (24-38) Sodium Level 131 mmol/L (136-145) Potassium Level 4.2 mmol/L (3.5-5.1) Chloride Level 92 mmol/L (98-107) Carbon Dioxide Level 31 mmol/L (21-32) Anion Gap 8 (6-14) Blood Urea Nitrogen 17 mg/dL (7-20) Creatinine 0.8 mg/dL (0.6-1.0) Estimated GFR (Cockcroft-Gault) 70.5 Glucose Level 108 mg/dL (70-99) Calcium Level 8.6 mg/dL (8.5-10.1) Test 08/09/18 21:08 08/10/18 05:30 O2 Saturation 91 % (92-99) Arterial Blood pH 7.40 (7.35-7.45) Arterial Blood pCO2 at Patient Temp 45 mmHg (35-46) Arterial Blood pO2 at Patient Temp 63 mmHg (65-108) Arterial Blood HCO3 27 mmol/L (21-28) Arterial Blood Base Excess 2 mmol/L (-3-3) White Blood Count 5.5 x10^3/uL (4.0-11.0) Red Blood Count 3.37 x10^6/uL (3.50-5.40) Hemoglobin 10.4 g/dL (12.0-15.5) Hematocrit 31.1 % (36.0-47.0) Mean Corpuscular Volume 92 fL (79-100) Mean Corpuscular Hemoglobin 31 pg (25-35) Mean Corpuscular Hemoglobin Concent 34 g/dL (31-37) Red Cell Distribution Width 14.7 % (11.5-14.5) Platelet Count 288 x10^3/uL (140-400) Neutrophils (%) (Auto) 50 % (31-73) Lymphocytes (%) (Auto) 41 % (24-48) Monocytes (%) (Auto) 8 % (0-9) Eosinophils (%) (Auto) 2 % (0-3) Basophils (%) (Auto) 0 % (0-3) Neutrophils # (Auto) 2.7 x10^3uL (1.8-7.7) Lymphocytes # (Auto) 2.2 x10^3/uL (1.0-4.8) Monocytes # (Auto) 0.4 x10^3/uL (0.0-1.1) Eosinophils # (Auto) 0.1 x10^3/uL (0.0-0.7) Basophils # (Auto) 0.0 x10^3/uL (0.0-0.2) Sodium Level 136 mmol/L (136-145) Potassium Level 4.0 mmol/L (3.5-5.1) Chloride Level 98 mmol/L (98-107) Carbon Dioxide Level 29 mmol/L (21-32) Anion Gap 9 (6-14) Blood Urea Nitrogen 15 mg/dL (7-20) Creatinine 0.9 mg/dL (0.6-1.0) Estimated GFR (Cockcroft-Gault) 61.5 Glucose Level 103 mg/dL (70-99) Calcium Level 8.5 mg/dL (8.5-10.1) Laboratory Tests Test 08/09/18 20:05 08/09/18 20:15 08/09/18 20:40 08/09/18 20:45 Urine Collection Type Unknown Urine Color Yellow Urine Clarity Clear Urine pH 7.0 Urine Specific [place] <=1.005 Urine Protein Negative mg/dL (NEG-TRACE) Urine Glucose (UA) Negative mg/dL (NEG) Urine Ketones (Stick) Negative mg/dL (NEG) Urine Blood Negative (NEG) Urine Nitrite Negative (NEG) Urine Bilirubin Negative (NEG) Urine Urobilinogen Dipstick 0.2 mg/dL (0.2 mg/dL) Urine Leukocyte Esterase Negative (NEG) Urine RBC Rare /HPF (0-2) Urine WBC Rare /HPF (0-4) Urine Squamous Epithelial Cells Few /LPF Urine Bacteria 0 /HPF (0-FEW) White Blood Count 8.8 x10^3/uL (4.0-11.0) Red Blood Count 3.52 x10^6/uL (3.50-5.40) Hemoglobin 10.9 g/dL (12.0-15.5) Hematocrit 32.5 % (36.0-47.0) Mean Corpuscular Volume 92 fL (79-100) Mean Corpuscular Hemoglobin 31 pg (25-35) Mean Corpuscular Hemoglobin Concent 34 g/dL (31-37) Red Cell Distribution Width 15.0 % (11.5-14.5) Platelet Count 332 x10^3/uL (140-400) Thyroid Stimulating Hormone (TSH) 0.497 uIU/mL (0.358-3.74) Glucose (Fingerstick) 97 mg/dL (70-99) Prothrombin Time 12.1 SEC (11.7-14.0) Prothromb Time International Ratio 0.9 (0.8-1.1) Activated Partial Thromboplast Time 27 SEC (24-38) Sodium Level 131 mmol/L (136-145) Potassium Level 4.2 mmol/L (3.5-5.1) Chloride Level 92 mmol/L (98-107) Carbon Dioxide Level 31 mmol/L (21-32) Anion Gap 8 (6-14) Blood Urea Nitrogen 17 mg/dL (7-20) Creatinine 0.8 mg/dL (0.6-1.0) Estimated GFR (Cockcroft-Gault) 70.5 Glucose Level 108 mg/dL (70-99) Calcium Level 8.6 mg/dL (8.5-10.1) Test 08/09/18 21:08 08/10/18 05:30 O2 Saturation 91 % (92-99) Arterial Blood pH 7.40 (7.35-7.45) Arterial Blood pCO2 at Patient Temp 45 mmHg (35-46) Arterial Blood pO2 at Patient Temp 63 mmHg (65-108) Arterial Blood HCO3 27 mmol/L (21-28) Arterial Blood Base Excess 2 mmol/L (-3-3) White Blood Count 5.5 x10^3/uL (4.0-11.0) Red Blood Count 3.37 x10^6/uL (3.50-5.40) Hemoglobin 10.4 g/dL (12.0-15.5) Hematocrit 31.1 % (36.0-47.0) Mean Corpuscular Volume 92 fL (79-100) Mean Corpuscular Hemoglobin 31 pg (25-35) Mean Corpuscular Hemoglobin Concent 34 g/dL (31-37) Red Cell Distribution Width 14.7 % (11.5-14.5) Platelet Count 288 x10^3/uL (140-400) Neutrophils (%) (Auto) 50 % (31-73) Lymphocytes (%) (Auto) 41 % (24-48) Monocytes (%) (Auto) 8 % (0-9) Eosinophils (%) (Auto) 2 % (0-3) Basophils (%) (Auto) 0 % (0-3) Neutrophils # (Auto) 2.7 x10^3uL (1.8-7.7) Lymphocytes # (Auto) 2.2 x10^3/uL (1.0-4.8) Monocytes # (Auto) 0.4 x10^3/uL (0.0-1.1) Eosinophils # (Auto) 0.1 x10^3/uL (0.0-0.7) Basophils # (Auto) 0.0 x10^3/uL (0.0-0.2) Sodium Level 136 mmol/L (136-145) Potassium Level 4.0 mmol/L (3.5-5.1) Chloride Level 98 mmol/L (98-107) Carbon Dioxide Level 29 mmol/L (21-32) Anion Gap 9 (6-14) Blood Urea Nitrogen 15 mg/dL (7-20) Creatinine 0.9 mg/dL (0.6-1.0) Estimated GFR (Cockcroft-Gault) 61.5 Glucose Level 103 mg/dL (70-99) Calcium Level 8.5 mg/dL (8.5-10.1) Images Images Head CT: No pathologic extra-axial or intra-axial fluid collection. Mild diffuse atrophy with ex vacuo dilation of the ventricles. The basal cisterns are within normal limits. Confluent low-attenuation is seen in the periventricular and deep white matter. No acute intracranial bleed. No focal loss of noel-white differentiation. Orbits within normal limits. No suspicious calvarial lesion. Visualized paranasal sinuses and mastoid air cells are clear. IMPRESSION: 1. No acute intracranial bleed. If concern for acute ischemic stroke is high, please consider MRI brain. 2. Multifocal white matter changes likely secondary to chronic microvascular ischemic disease. Assessment/Plan Assessment/Plan Impression: Stroke symptoms, may have represented hypertensive encephalopathy, but persistent numbness is worrisome for a new stroke. She has a history of old stroke for which she was transferred to , but no major sequelae seen on the CT head. Parkinson's, stable on current regimen. Recommendations: She cannot have an MRI, I will repeat the CT head tomorrow. Carotid Doppler studies I was originally thinking about CT angiogram, but we'll hold off. Echocardiogram She may have failed on aspirin and clopidogrel, but we'll continue these for now. Check lipids, add statin if appropriate Continue current Parkinson's medications. Thank you for letting me help with the patient's care. VANESSA LITTLEJOHN MD Aug 10, 2018 16:39
[2018-08-10] MEDS ORDERED: ACETAMINOPHEN 650 MG SUPP.RECT. PR PRN (16:45)
[2018-08-10] MEDS ORDERED: ACETAMINOPHEN 325 MG TABLET. PO PRN (16:45)
[2018-08-10] MEDS: IV NORMAL SALINE 1000ML BAG 1,000 ML IV SCH (17:53)
[2018-08-10] MEDS ORDERED: ZOLPIDEM 5 MG TABLET. PO SCH (21:00)
[2018-08-10] MEDS ORDERED: LIDOCAINE (700MG/PATCH) PATCH. TD SCH (21:00)
[2018-08-10] MEDS ORDERED: MIRTAZAPINE 15 MG TABLET PO SCH (21:00)
[2018-08-10] MEDS ORDERED: NON FORMULARY ITEM (Melatonin 10 MG) PO SCH (21:00)
[2018-08-10] MEDS: NITROGLYCERIN OINT 1 GM PACKET. TP SCH (21:17)
[2018-08-11] MEDS: MORPHINE SULFATE 2 MG/ML VIAL. IV PRN (00:32)
[2018-08-11] MEDS: IV NORMAL SALINE 1000ML BAG 1,000 ML IV SCH (02:06)
[2018-08-11 03:45] VITALS: BP 148/69
[2018-08-11] MEDS: NITROGLYCERIN OINT 1 GM PACKET. TP SCH ×2 (04:03→12:00)
[2018-08-11 04:54] LABS: BASO % 0 % (0-3); EOS # 0.1 x10^3/uL (0.0-0.7); EOS % 2 % (0-3); HEMATOCRIT 32.9 % (36.0-47.0); HEMOGLOBIN 10.8 g/dL (12.0-15.5); LYMPH # 2.1 x10^3/uL (1.0-4.8); LYMPH % 41 % (24-48); MEAN CORPUSCULAR HEMOGLOBIN 31 pg (25-35); MEAN CORPUSCULAR HGB CONC 33 g/dL (31-37); MEAN CORPUSCULAR VOLUME 93 fL (79-100); MONO # 0.5 x10^3/uL (0.0-1.1); MONO % 9 % (0-9); NEUT # 2.5 x10^3uL (1.8-7.7); NEUT % 48 % (31-73); PLATELET COUNT 319 x10^3/uL (140-400); RED BLOOD COUNT 3.54 x10^6/uL (3.50-5.40); RED CELL DISTRIBUTION WIDTH 15.1 % (11.5-14.5); WHITE BLOOD COUNT 5.2 x10^3/uL (4.0-11.0)
[2018-08-11 05:19] LABS: CALCIUM 8.3 mg/dL (8.5-10.1); CREATININE 0.9 mg/dL (0.6-1.0); GFR 61.5; POTASSIUM 4.2 mmol/L (3.5-5.1)
[2018-08-11 05:26] LABS: CHOLESTEROL/HDL RATIO 2.1
[2018-08-11] MEDS: LEVOTHYROXINE 150 MCG TABLET PO SCH (06:49)
[2018-08-11] MEDS: oxyCODONE ER 10 MG TAB.ER.12H PO SCH (06:50)
[2018-08-11 07:00] VITALS: BP 153/59
--- NOTE | 2018-08-11 08:21 | RAD ---
BILATERAL DUPLEX CAROTID SONOGRAPHY History: CVA
Technique: Duplex sonography of the cervical portion of both carotid arteries was performed. Real-time grayscale, color flow Doppler, and Doppler spectral waveform analysis is performed. Findings: Right side: Peak systolic flow velocity of the distal CCA is 80 cm/sec. Peak systolic flow velocity of the ICA is 147 cm/sec. The ICA/CCA ratio is 1.8. Peak end diastolic flow velocity of the ICA is 47 cm/sec. The peak systolic velocity of the ECA is 116 cm/sec. Mild atherosclerotic plaque centered in the carotid bulb. Left side: Peak systolic flow velocity of the distal CCA is 76 cm/sec. Peak systolic flow velocity of the ICA is 93 cm/sec. The ICA/CCA ratio is 1.2. Peak end diastolic flow velocity of the ICA is 29 cm/sec. Peak systolic flow velocity of the ECA is 58 cm/sec. Mild atherosclerotic plaque centered in the carotid bulb. Vertebral arteries: 1. Elevated velocities within the right ICA consistent with 50-69 percent stenosis. 2. Velocities and ratios consistent with less than 50 percent left ICA stenosis. IMPRESSION: No hemodynamically significant internal carotid artery stenosis is identified. <50% ICA Stenosis: PSV < 125cm/s (EDV < 40cm/s; SVR < 2.0) 50-69% ICA Stenosis: PSV < 125-229cm/s (EDV 40-99cm/s; SVR 2.0-3.9) >70% ICA Stenosis: PSV > 230cm/s (EDV >100cm/s; SVR >4.0) PQRS Compliance Statement - Stenosis calculations for CT, MR and conventional angiography are based upon measurement of the distal ICA diameter in accordance with the NASCET methodology. Stenosis calculations for carotid ultrasound studies are derived from validated velocity criteria which are known to correlate with the NASCET methodology. Electronically signed by: Matt Galeana MD (08/11/2018 8:18 AM) [facility]
[2018-08-11] MEDS ORDERED: PATCH REMOVAL. MC SCH (09:00)
[2018-08-11] MEDS: ALBUTEROL SULFATE 2.5 MG/3 ML NEBU. NEB SCH ×2 (09:03→12:48)
[2018-08-11] MEDS: BUDESONIDE 0.5 MG/2 ML NEBU. NEB SCH (09:03)
--- NOTE | 2018-08-11 09:24 | RAD ---
CT HEAD WO CONTRAST Date: 08/11/2018 8:48 AM Clinical Indication: CVA Comparison: CT head dated 08/09/2018. Technique: 5 mm axial tomographic images were obtained of the head without contrast. These were viewed on brain and bone windows. Findings: Mild generalized cerebral and cerebellar volume loss. Moderate nonspecific periventricular hypoattenuation, most commonly seen with chronic small vessel ischemic disease. No intra- or extra-axial mass or fluid collection. No acute hemorrhage. The ventricles are normal in size, shape, and morphology. The noel-white matter junction is normal. The basilar cisterns are patent. The visualized paranasal sinuses are normal. The visualized portions of the orbits and globes are normal. The mastoid air cells are clear. No aggressive osseous lesion or fracture. Impression: 1. No acute intracranial process identified on noncontrast CT. 2. Moderate chronic small vessel ischemic disease. 3. Mild cerebral volume loss. Electronically signed by: Matt Galeana MD (08/11/2018 9:21 AM) [facility]
[2018-08-11] MEDS: metFORMIN 500 MG TABLET PO SCH (09:31)
[2018-08-11] MEDS: CYCLOBENZAPRINE 10 MG TABLET. PO SCH (09:31)
[2018-08-11] MEDS: DULoxetine HCL 30 MG CAPSULE.DR PO SCH (09:32)
[2018-08-11] MEDS: CHOLECALCIFEROL (VITAMIN D3) 5,000 UNIT CAPSULE PO SCH (09:32)
[2018-08-11] MEDS: LORazepam 0.5 MG TABLET PO SCH (09:32)
[2018-08-11] MEDS: busPIRone 5 MG TABLET. PO SCH (09:32)
[2018-08-11] MEDS: rOPINIRole 1 MG TABLET. PO SCH (09:33)
[2018-08-11] MEDS: CLOPIDOGREL BISULFATE 75 MG TABLET PO SCH (09:33)
[2018-08-11] MEDS: VITAMIN E 200 UNIT CAPSULE. PO SCH (09:33)
[2018-08-11] MEDS: PANTOPRAZOLE 40 MG TABLET.DR. PO SCH (09:33)
[2018-08-11] MEDS: CARBIDOPA/LEVODOPA 25/100MG TABLET PO SCH (09:33)
[2018-08-11] MEDS: MELOXICAM 7.5 MG TABLET PO SCH (09:33)
[2018-08-11] MEDS: CALCIUM POLYCARBOPHIL 625 MG TABLET PO SCH (09:33)
[2018-08-11] MEDS: LACTOBACILLUS RHAMNOSUS GG 1 CAPSULE. PO SCH (09:34)
[2018-08-11] MEDS: CARVEDILOL 12.5 MG TABLET. PO SCH (09:34)
[2018-08-11] MEDS: METOCLOPRAMIDE 10 MG TABLET. PO PRN ×2 (09:34→12:13)
[2018-08-11] MEDS: FERROUS SULFATE 325 MG TABLET. PO SCH (09:34)
[2018-08-11] MEDS: PRIMIDONE 50 MG TABLET PO SCH (09:34)
[2018-08-11] MEDS: ASPIRIN ENTERIC COATED 81 MG TABLET.DR. PO SCH (09:34)
[2018-08-11] MEDS: DONEPEZIL HCL 10 MG TABLET. PO SCH (09:34)
[2018-08-11] MEDS: FUROSEMIDE 40 MG/4 ML VIAL. IVP SCH (09:35)
[2018-08-11] MEDS: GABAPENTIN 300 MG CAPSULE. PO SCH (09:35)
--- NOTE | 2018-08-11 10:01 | PDOC ---
PROGRESS NOTES Assessment Problems Medical Problems: (1) CVA (cerebral vascular accident) Status: Acute Stroke symptoms, may have represented hypertensive encephalopathy,no new stroke on followup CT. 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 Concern for V. tach, just pacemaker spike Note lipids, borderline case for statin Plan Okay for discharge Await echocardiogram Continue aspirin and clopidogrel. Atorvastatin, discussed risks/benefits/alternatives Continue current Parkinson's medications. Followup with PCP and her current neurologists Subjective No complaints, numbness has resolved Objective Vital Signs Date Time Temp Pulse Resp B/P (MAP) Pulse Ox O2 Delivery O2 Flow Rate FiO2 08/11/18 09:34 61 153/59 08/11/18 09:04 98 Room Air 08/11/18 07:00 98.1 18 98.1 08/10/18 20:00 2.0 Intake and Output 08/11/18 07:00 Intake Total 750 ml Output Total 1700 ml Balance -950 ml Intake Oral 750 ml Output Urine Total 650 ml Stool Total 1050 ml PHYSICAL EXAM Alert. Oriented to time, place and person. Pupils reactive to light, left pupil larger than right ever since stroke EOMI. CN: no focal findings. Muscle tone: cogwheel rigidity Muscle strength: 4/5 strength, a little weaker on the left DTR: 2+ Plantar reflex: flexor Gait: not examined in bed. Sensory exam: no abnormal findings. No cerebellar signs elicited. Mild resting tremor as well as postural tremor, bradykinesia, masked facies. Review of Relevant I have reviewed the following items dina (where applicable) has been applied. Labs Laboratory Tests Test 08/09/18 20:05 08/09/18 20:15 08/09/18 20:40 08/09/18 20:45 Urine Collection Type Unknown Urine Color Yellow Urine Clarity Clear Urine pH 7.0 Urine Specific [place] <=1.005 Urine Protein Negative mg/dL (NEG-TRACE) Urine Glucose (UA) Negative mg/dL (NEG) Urine Ketones (Stick) Negative mg/dL (NEG) Urine Blood Negative (NEG) Urine Nitrite Negative (NEG) Urine Bilirubin Negative (NEG) Urine Urobilinogen Dipstick 0.2 mg/dL (0.2 mg/dL) Urine Leukocyte Esterase Negative (NEG) Urine RBC Rare /HPF (0-2) Urine WBC Rare /HPF (0-4) Urine Squamous Epithelial Cells Few /LPF Urine Bacteria 0 /HPF (0-FEW) White Blood Count 8.8 x10^3/uL (4.0-11.0) Red Blood Count 3.52 x10^6/uL (3.50-5.40) Hemoglobin 10.9 g/dL (12.0-15.5) Hematocrit 32.5 % (36.0-47.0) Mean Corpuscular Volume 92 fL (79-100) Mean Corpuscular Hemoglobin 31 pg (25-35) Mean Corpuscular Hemoglobin Concent 34 g/dL (31-37) Red Cell Distribution Width 15.0 % (11.5-14.5) Platelet Count 332 x10^3/uL (140-400) Thyroid Stimulating Hormone (TSH) 0.497 uIU/mL (0.358-3.74) Glucose (Fingerstick) 97 mg/dL (70-99) Prothrombin Time 12.1 SEC (11.7-14.0) Prothromb Time International Ratio 0.9 (0.8-1.1) Activated Partial Thromboplast Time 27 SEC (24-38) Sodium Level 131 mmol/L (136-145) Potassium Level 4.2 mmol/L (3.5-5.1) Chloride Level 92 mmol/L (98-107) Carbon Dioxide Level 31 mmol/L (21-32) Anion Gap 8 (6-14) Blood Urea Nitrogen 17 mg/dL (7-20) Creatinine 0.8 mg/dL (0.6-1.0) Estimated GFR (Cockcroft-Gault) 70.5 Glucose Level 108 mg/dL (70-99) Calcium Level 8.6 mg/dL (8.5-10.1) Test 08/09/18 21:08 08/10/18 05:30 08/11/18 04:30 O2 Saturation 91 % (92-99) Arterial Blood pH 7.40 (7.35-7.45) Arterial Blood pCO2 at Patient Temp 45 mmHg (35-46) Arterial Blood pO2 at Patient Temp 63 mmHg (65-108) Arterial Blood HCO3 27 mmol/L (21-28) Arterial Blood Base Excess 2 mmol/L (-3-3) White Blood Count 5.5 x10^3/uL (4.0-11.0) 5.2 x10^3/uL (4.0-11.0) Red Blood Count 3.37 x10^6/uL (3.50-5.40) 3.54 x10^6/uL (3.50-5.40) Hemoglobin 10.4 g/dL (12.0-15.5) 10.8 g/dL (12.0-15.5) Hematocrit 31.1 % (36.0-47.0) 32.9 % (36.0-47.0) Mean Corpuscular Volume 92 fL (79-100) 93 fL (79-100) Mean Corpuscular Hemoglobin 31 pg (25-35) 31 pg (25-35) Mean Corpuscular Hemoglobin Concent 34 g/dL (31-37) 33 g/dL (31-37) Red Cell Distribution Width 14.7 % (11.5-14.5) 15.1 % (11.5-14.5) Platelet Count 288 x10^3/uL (140-400) 319 x10^3/uL (140-400) Neutrophils (%) (Auto) 50 % (31-73) 48 % (31-73) Lymphocytes (%) (Auto) 41 % (24-48) 41 % (24-48) Monocytes (%) (Auto) 8 % (0-9) 9 % (0-9) Eosinophils (%) (Auto) 2 % (0-3) 2 % (0-3) Basophils (%) (Auto) 0 % (0-3) 0 % (0-3) Neutrophils # (Auto) 2.7 x10^3uL (1.8-7.7) 2.5 x10^3uL (1.8-7.7) Lymphocytes # (Auto) 2.2 x10^3/uL (1.0-4.8) 2.1 x10^3/uL (1.0-4.8) Monocytes # (Auto) 0.4 x10^3/uL (0.0-1.1) 0.5 x10^3/uL (0.0-1.1) Eosinophils # (Auto) 0.1 x10^3/uL (0.0-0.7) 0.1 x10^3/uL (0.0-0.7) Basophils # (Auto) 0.0 x10^3/uL (0.0-0.2) 0.0 x10^3/uL (0.0-0.2) Sodium Level 136 mmol/L (136-145) 137 mmol/L (136-145) Potassium Level 4.0 mmol/L (3.5-5.1) 4.2 mmol/L (3.5-5.1) Chloride Level 98 mmol/L (98-107) 99 mmol/L (98-107) Carbon Dioxide Level 29 mmol/L (21-32) 31 mmol/L (21-32) Anion Gap 9 (6-14) 7 (6-14) Blood Urea Nitrogen 15 mg/dL (7-20) 13 mg/dL (7-20) Creatinine 0.9 mg/dL (0.6-1.0) 0.9 mg/dL (0.6-1.0) Estimated GFR (Cockcroft-Gault) 61.5 61.5 Glucose Level 103 mg/dL (70-99) 104 mg/dL (70-99) Calcium Level 8.5 mg/dL (8.5-10.1) 8.3 mg/dL (8.5-10.1) Magnesium Level 1.9 mg/dL (1.8-2.4) Triglycerides Level 61 mg/dL (0-150) Cholesterol Level 178 mg/dL (0-200) LDL Cholesterol, Calculated 80 mg/dL (0-100) VLDL Cholesterol, Calculated 12 mg/dL (0-40) Non-HDL Cholesterol Calculated 92 mg/dL (0-129) HDL Cholesterol 86 mg/dL (40-60) Cholesterol/HDL Ratio 2.1 Laboratory Tests Test 08/11/18 04:30 White Blood Count 5.2 x10^3/uL (4.0-11.0) Red Blood Count 3.54 x10^6/uL (3.50-5.40) Hemoglobin 10.8 g/dL (12.0-15.5) Hematocrit 32.9 % (36.0-47.0) Mean Corpuscular Volume 93 fL (79-100) Mean Corpuscular Hemoglobin 31 pg (25-35) Mean Corpuscular Hemoglobin Concent 33 g/dL (31-37) Red Cell Distribution Width 15.1 % (11.5-14.5) Platelet Count 319 x10^3/uL (140-400) Neutrophils (%) (Auto) 48 % (31-73) Lymphocytes (%) (Auto) 41 % (24-48) Monocytes (%) (Auto) 9 % (0-9) Eosinophils (%) (Auto) 2 % (0-3) Basophils (%) (Auto) 0 % (0-3) Neutrophils # (Auto) 2.5 x10^3uL (1.8-7.7) Lymphocytes # (Auto) 2.1 x10^3/uL (1.0-4.8) Monocytes # (Auto) 0.5 x10^3/uL (0.0-1.1) Eosinophils # (Auto) 0.1 x10^3/uL (0.0-0.7) Basophils # (Auto) 0.0 x10^3/uL (0.0-0.2) Sodium Level 137 mmol/L (136-145) Potassium Level 4.2 mmol/L (3.5-5.1) Chloride Level 99 mmol/L (98-107) Carbon Dioxide Level 31 mmol/L (21-32) Anion Gap 7 (6-14) Blood Urea Nitrogen 13 mg/dL (7-20) Creatinine 0.9 mg/dL (0.6-1.0) Estimated GFR (Cockcroft-Gault) 61.5 Glucose Level 104 mg/dL (70-99) Calcium Level 8.3 mg/dL (8.5-10.1) Triglycerides Level 61 mg/dL (0-150) Cholesterol Level 178 mg/dL (0-200) LDL Cholesterol, Calculated 80 mg/dL (0-100) VLDL Cholesterol, Calculated 12 mg/dL (0-40) Non-HDL Cholesterol Calculated 92 mg/dL (0-129) HDL Cholesterol 86 mg/dL (40-60) Cholesterol/HDL Ratio 2.1 Medications Current Medications Ketorolac Tromethamine (Toradol 15mg Vial) 15 mg 1X ONCE IV Last administered on 08/09/18at 21:25; Start 08/09/18 at 21:30; Stop 08/09/18 at 21:31; Status DC Fentanyl Citrate (Fentanyl 2ml Vial) 25 mcg 1X ONCE IV Last administered on 08/09/18at 21:25; Start 08/09/18 at 21:30; Stop 08/09/18 at 21:31; Status DC Ondansetron HCl (Zofran) 4 mg 1X ONCE IV Last administered on 08/09/18 21:24; Start 08/09/18 at 21:30; Stop 08/09/18 at 21:31; Status DC Ondansetron HCl (Zofran) 4 mg PRN Q8HRS PRN IV NAUSEA/VOMITING Last administered on 08/10/18 18:55; Start 08/09/18 at 23:30; Stop 08/10/18 at 23:29; Status DC Dextrose/Sodium Chloride 1,000 ml @ 125 mls/hr 1X ONCE IV Last administered on 08/10/18 00:43; Start 08/09/18 at 23:30; Stop 08/10/18 at 07:29; Status DC Morphine Sulfate (Morphine Sulfate) 4 mg 1X ONCE IV Last administered on 00:44; Start 08/09/18 at 23:30; Stop 08/09/18 at 23:31; Status DC Furosemide (Lasix) 40 mg DAILY IVP Last administered on 08/11/18 09:35; Start 08/10/18 at 11:30 Aspirin (Ecotrin) 81 mg DAILY PO Last administered on 08/11/18 09:34; Start 08/10/18 at 11:30 Carbidopa/Levodopa (Sinemet 25/100) 2.5 tab QID PO Last administered on 09:33; Start 08/10/18 at 13:00 Carvedilol (Coreg) 12.5 mg BIDWMEALS PO Last administered on 08/11/18 09:34; Start 08/10/18 at 11:30 Clopidogrel Bisulfate (Plavix) 75 mg DAILYWBKFT PO Last administered on 09:33; Start 08/10/18 at 11:30 Cyclobenzaprine HCl (Flexeril) 10 mg TID PO Last administered on 08/11/18 09:31 ; Start 08/10/18 at 14:00 Ferrous Sulfate (Feosol) 325 mg DAILY PO Last administered on 08/11/18 09:34; Start 08/10/18 at 11:30 Gabapentin (Neurontin) 300 mg TID PO Last administered on 08/11/18 09:35; Start 08/10/18 at 14:00 Lactobacillus Rhamnosus (Culturelle) 1 cap BID PO Last administered on 09:34; Start 08/10/18 at 11:30 Lorazepam (Ativan) 0.5 mg QID PO Last administered on 08/11/18 09:32; Start 08/10/18 at 13:00 Metoclopramide HCl (Reglan) 10 mg PRN QID PRN PO NAUSEA Last administered on 09:34; Start 08/10/18 at 11:00 Oxycodone HCl (OxyCONTIN) 10 mg Q8HRS PO Last administered on 08/11/18 06:50; Start 08/10/18 at 14:00 Zolpidem Tartrate (Ambien) 5 mg QHS PO Last administered on 08/10/18 21:17; Start 08/10/18 at 21:00 Budesonide (Pulmicort) 0.5 mg RTBID NEB Last administered on 08/11/18 09:03; Start 08/10/18 at 12:00 Buspirone HCl (Buspar) 15 mg TID PO Last administered on 08/11/18 09:32; Start 08/10/18 at 14:00 Vitamin D (Vitamin D3) 5,000 unit DAILY PO Last administered on 08/11/18 09:32 ; Start 08/10/18 at 11:30 Diltiazem HCl (Cardizem 24hr Cd) 180 mg DAILY PO Last administered on 08/11/18 09:34; Start 08/10/18 at 11:30 Docusate Sodium (Colace Solution) 50 mg PRN BID PRN PO CONSTIPATION; Start 08/10 at 11:30 Donepezil HCl (Aricept) 10 mg DAILY PO ; Start 08/10/18 at 11:30 Duloxetine HCl (Cymbalta) 60 mg BID PO Last administered on 08/11/18 09:32; Start 08/10/18 at 11:30 Pantoprazole Sodium (Protonix) 40 mg DAILYAC PO Last administered on 08/11/18 09:33; Start 08/10/18 at 11:30 Levothyroxine Sodium (Synthroid) 150 mcg DAILY06 PO Last administered on 06:49; Start 08/10/18 at 11:30 Lidocaine (Lidoderm) 1 patch QHS TD Last administered on 08/10/18 21:30; Start 08/10/18 at 21:00 Non-Formulary Medication (Melatonin ) 10 mg QHS PO ; Start 08/10/18 at 21:00; Status UNV Meloxicam (Mobic) 7.5 mg DAILY PO Last administered on 08/11/18 09:33; Start at 11:30 Metformin HCl (Glucophage) 500 mg BIDWMEALS PO Last administered on 08/11/18 09 :31; Start 08/10/18 at 12:00 Calcium Polycarbophil (Fibercon) 625 mg BID PO Last administered on 08/11/18 09 :33; Start 08/10/18 at 12:00 Mirtazapine (Remeron) 30 mg QHS PO Last administered on 08/10/18 21:17; Start 08/10/18 at 21:00 Primidone (Mysoline) 50 mg TID PO Last administered on 08/11/18 09:34; Start at 14:00 Ropinirole HCl (Requip) 1 mg TID PO Last administered on 08/11/18 09:33; Start 08/10/18 at 14:00 Vitamin E 1,000 unit DAILY PO Last administered on 08/11/18 09:33; Start at 11:30 Albuterol Sulfate (Ventolin Neb Soln) 2.5 mg RTQID NEB Last administered on 08/11 09:03; Start 08/10/18 at 12:00 Miscellaneous (Lidoderm Patch Removal) 1 ea DAILY MC ; Start 08/11/18 at 09:00 Morphine Sulfate (Morphine Sulfate) 2 mg PRN Q2HR PRN IV PAIN Last administered on 08/11/18 00:32; Start 08/10/18 at 13:15 Sodium Chloride 1,000 ml @ 100 mls/hr Q10H IV Last administered on 08/11/18 02 :06; Start 08/10/18 at 17:30 Acetaminophen (Tylenol) 650 mg PRN Q6HRS PRN PO TEMP > 100.4F Last administered on 08/11/18at 00:31; Start 08/10/18 at 16:45 Acetaminophen (Tylenol Supp) 650 mg PRN Q4HRS PRN [place] TEMP > 100.4F; Start at 16:45 Diltiazem HCl (Cardizem 24hr Cd) 180 mg 1X ONCE PO Last administered on at 21:14; Start 08/10/18 at 21:30; Stop 08/10/18 at 21:31; Status DC Nitroglycerin (Nitro-Bid Oint) 1 inch Q6HRS TP Last administered on 08/11/18at 04 :03; Start 08/10/18 at 21:30 Active Scripts Active Symbicort 80-4.5 Mcg Inhaler (Budesonide/Formoterol Fumarate) 10.2 Gm Hfa.aer.ad 2 Puff IH BID 30 Days Reglan (Metoclopramide Hcl) 10 Mg Tablet 1 Tab PO QID PRN Culturelle (Lactobacillus Rhamnosus Gg) 1 Each Cap.sprink 1 Cap PO BID Clopidogrel (Clopidogrel Bisulfate) 75 Mg Tablet 75 Mg PO DAILYWBKFT Reported Stool Softener (Docusate Sodium) 50 Mg Capsule 50 Mg PO PRN PRN Fiber (Methylcellulose) 500 Mg Tablet 500 Mg PO BID Mysoline (Primidone) 50 Mg Tablet 50 Mg PO TID Ferrous Sulfate 325 Mg Tablet 1 Tab PO DAILY Vitamin E 1,000 Unit Capsule 1,000 Unit PO PO Vitamin D3 (Cholecalciferol (Vitamin D3)) 5,000 Unit Tablet 1 Tab PO DAILY Melatonin 3 Mg Tablet 10 Mg PO QHS Buspirone Hcl 15 Mg Tablet 1 Tab PO TID Meloxicam 7.5 Mg Tablet 7.5 Mg PO DAILY Gabapentin (Gabapentin) 300 Mg Capsule 300 Mg PO TID Oxycontin (Oxycodone HCl) 10 Mg Tab.er.12h 10 Mg PO TID Cartia Xt (Diltiazem Hcl) 180 Mg Cap.er.24h 180 Mg PO DAILY Levothyroxine Sodium 150 Mcg Tablet 1 Tab PO DAILY07 Ropinirole Hcl 1 Mg Tablet 1 Mg PO TID Donepezil Hcl 10 Mg Tablet 1 Tab PO DAILY Lorazepam 1 Mg Tablet 0.5 Mg PO QID Duloxetine Hcl 60 Mg Capsule.dr 60 Mg PO BID Cyclobenzaprine Hcl 10 Mg Tablet 1 Tab PO TID Lidoderm (Lidocaine) 700 Mg Adh..patch 1 Patch TP HS Aspir 81 (Aspirin) 81 Mg Tablet. 1 Tab PO DAILY Carbidopa-Levodopa 25-100 Tab (Carbidopa/Levodopa) 1 Each Tablet 2.5 Tab PO Q3HR W/A Mirtazapine 30 Mg Tab.rapdis 30 Mg PO HS Zolpidem Tartrate 5 Mg Tablet 1 Tab PO QHS Coreg (Carvedilol) 12.5 Mg Tablet 1 Tab PO BID . Metformin Hcl 500 Mg Tablet 1 Tab PO BID Nexium Capsule (Esomeprazole Magnesium) 40 Mg Capsule. 40 Mg PO DAILY Vitals/I & O Vital Sign - Last 24 Hours 08/10/18 08/10/18 08/10/18 08/10/18 11:00 11:30 13:16 15:00 Temp 98.4 98.5 98.4 98.5 Pulse 73 73 87 Resp 18 18 B/P (MAP) 194/74 (114) 194/74 172/86 (114) Pulse Ox 92 93 O2 Delivery Room Air Room Air Room Air 08/10/18 08/10/18 08/10/18 08/10/18 15:18 15:18 16:15 16:42 Temp 97.9 97.9 Pulse 73 74 Resp 18 B/P (MAP) 194/74 158/69 (98) Pulse Ox 93 O2 Delivery Room Air Room Air Room Air 08/10/18 08/10/18 08/10/18 08/10/18 17:52 19:38 20:00 20:18 Temp 98.0 98.0 Pulse 74 63 Resp 17 B/P (MAP) 158/69 190/63 (105) Pulse Ox 91 98 O2 Delivery Room Air Nasal Cannula Room Air O2 Flow Rate 2.0 08/10/18 08/10/18 08/10/18 08/10/18 21:14 21:17 21:30 22:30 Temp 97.7 97.7 Pulse 62 63 65 Resp 18 B/P (MAP) 190/63 190/63 179/63 (101) Pulse Ox 91 O2 Delivery Room Air Room Air 08/11/18 08/11/18 08/11/18 08/11/18 00:32 01:02 01:30 03:45 Temp 97.6 97.6 Pulse 70 Resp 18 B/P (MAP) 148/69 (95) Pulse Ox 93 O2 Delivery Room Air Room Air Room Air Room Air 08/11/18 08/11/18 08/11/18 08/11/18 04:03 06:50 07:00 09:04 Temp 98.1 98.1 Pulse 68 61 Resp 18 B/P (MAP) 148/69 153/59 (90) Pulse Ox 95 98 O2 Delivery Room Air Room Air Room Air 08/11/18 08/11/18 09:34 09:34 Pulse 61 61 B/P (MAP) 153/59 153/59 Intake and Output 08/10/18 08/10/18 08/11/18 15:00 23:00 07:00 Intake Total 0 ml 250 ml 500 ml Output Total 1050 ml 650 ml Balance -1050 ml 250 ml -[address] HEAD WO CONTRAST, 08/11/2018 8:48 AM Mild generalized cerebral and cerebellar volume loss. Moderate nonspecific periventricular hypoattenuation, most commonly seen with chronic small vessel ischemic disease. No intra- or extra-axial mass or fluid collection. No acute hemorrhage. The ventricles are normal in size, shape, and morphology. The noel-white matter junction is normal. The basilar cisterns are patent. The visualized paranasal sinuses are normal. The visualized portions of the orbits and globes are normal. The mastoid air cells are clear. No aggressive osseous lesion or fracture. Impression: 1. No acute intracranial process identified on noncontrast CT. 2. Moderate chronic small vessel ischemic disease. 3. Mild cerebral volume loss. Carotids: Right side: Peak systolic flow velocity of the distal CCA is 80 cm/sec. Peak systolic flow velocity of the ICA is 147 cm/sec. The ICA/CCA ratio is 1.8. Peak end diastolic flow velocity of the ICA is 47 cm/sec. The peak systolic velocity of the ECA is 116 cm/sec. Mild atherosclerotic plaque centered in the carotid bulb. Left side: Peak systolic flow velocity of the distal CCA is 76 cm/sec. Peak systolic flow velocity of the ICA is 93 cm/sec. The ICA/CCA ratio is 1.2. Peak end diastolic flow velocity of the ICA is 29 cm/sec. Peak systolic flow velocity of the ECA is 58 cm/sec. Mild atherosclerotic plaque centered in the carotid bulb. Vertebral arteries: 1. Elevated velocities within the right ICA consistent with 50-69 percent stenosis. 2. Velocities and ratios consistent with less than 50 percent left ICA stenosis. IMPRESSION: No hemodynamically significant internal carotid artery stenosis is identified. VANESSA LITTLEJOHN MD Aug 11, 2018 10:01
[2018-08-11 10:52] VITALS: BP 165/59
--- NOTE | 2018-08-11 11:14 | NUR ---
Bedside Swallow Evaluation completed. Please refer to full report for additional information. Impressions: Functional oropharyngeal swallow w/o s/s aspiration across consistencies tested including thin liquids via tsp/cup/straw, puree, solid and mixed consistency. Pt appears at low risk of aspiration for all PO consistencies w/ general swallow precautions. General swallow precautions reviewed w/ pt. Recommendations: Regular diet w/ thin liquids. General swallow precautions. No additional ST f/u indicated at this time. D/w pt and RN.
--- NOTE | 2018-08-11 11:38 | PDOC3 ---
Discharge Summary Visit Information Date of Admission: Aug 10, 2018 Date of Discharge: Aug 11, 2018 Admitting Diagnosis: Stroke symptoms Final Diagnosis Strokelike symptoms resolved Hypertensive encephalopathy History of Parkinson's disease History of coronary artery disease asymptomatic History of COPD Brief Hospital Course Allergies Allergies Coded Allergies Type Severity Reaction Last Updated Verified Sulfa (Sulfonamide Antibiotics) Allergy Intermediate hives 11/01/17 Yes dexamethasone Allergy Intermediate 11/01/17 Yes Vital Signs Vital Signs Date Time Temp Pulse Resp B/P (MAP) Pulse Ox O2 Delivery O2 Flow Rate FiO2 08/11/18 10:52 97.8 75 18 165/59 (94) 94 Room Air 97.8 08/11/18 08:00 2.0 Lab Results Laboratory Tests Test 08/09/18 20:05 08/09/18 20:15 08/09/18 20:40 08/09/18 20:45 Urine Collection Type Unknown Urine Color Yellow Urine Clarity Clear Urine pH 7.0 Urine Specific [place] <=1.005 Urine Protein Negative mg/dL (NEG-TRACE) Urine Glucose (UA) Negative mg/dL (NEG) Urine Ketones (Stick) Negative mg/dL (NEG) Urine Blood Negative (NEG) Urine Nitrite Negative (NEG) Urine Bilirubin Negative (NEG) Urine Urobilinogen Dipstick 0.2 mg/dL (0.2 mg/dL) Urine Leukocyte Esterase Negative (NEG) Urine RBC Rare /HPF (0-2) Urine WBC Rare /HPF (0-4) Urine Squamous Epithelial Cells Few /LPF Urine Bacteria 0 /HPF (0-FEW) White Blood Count 8.8 x10^3/uL (4.0-11.0) Red Blood Count 3.52 x10^6/uL (3.50-5.40) Hemoglobin 10.9 g/dL (12.0-15.5) Hematocrit 32.5 % (36.0-47.0) Mean Corpuscular Volume 92 fL (79-100) Mean Corpuscular Hemoglobin 31 pg (25-35) Mean Corpuscular Hemoglobin Concent 34 g/dL (31-37) Red Cell Distribution Width 15.0 % (11.5-14.5) Platelet Count 332 x10^3/uL (140-400) Thyroid Stimulating Hormone (TSH) 0.497 uIU/mL (0.358-3.74) Glucose (Fingerstick) 97 mg/dL (70-99) Prothrombin Time 12.1 SEC (11.7-14.0) Prothromb Time International Ratio 0.9 (0.8-1.1) Activated Partial Thromboplast Time 27 SEC (24-38) Sodium Level 131 mmol/L (136-145) Potassium Level 4.2 mmol/L (3.5-5.1) Chloride Level 92 mmol/L (98-107) Carbon Dioxide Level 31 mmol/L (21-32) Anion Gap 8 (6-14) Blood Urea Nitrogen 17 mg/dL (7-20) Creatinine 0.8 mg/dL (0.6-1.0) Estimated GFR (Cockcroft-Gault) 70.5 Glucose Level 108 mg/dL (70-99) Calcium Level 8.6 mg/dL (8.5-10.1) Test 08/09/18 21:08 08/10/18 05:30 08/11/18 04:30 O2 Saturation 91 % (92-99) Arterial Blood pH 7.40 (7.35-7.45) Arterial Blood pCO2 at Patient Temp 45 mmHg (35-46) Arterial Blood pO2 at Patient Temp 63 mmHg (65-108) Arterial Blood HCO3 27 mmol/L (21-28) Arterial Blood Base Excess 2 mmol/L (-3-3) White Blood Count 5.5 x10^3/uL (4.0-11.0) 5.2 x10^3/uL (4.0-11.0) Red Blood Count 3.37 x10^6/uL (3.50-5.40) 3.54 x10^6/uL (3.50-5.40) Hemoglobin 10.4 g/dL (12.0-15.5) 10.8 g/dL (12.0-15.5) Hematocrit 31.1 % (36.0-47.0) 32.9 % (36.0-47.0) Mean Corpuscular Volume 92 fL (79-100) 93 fL (79-100) Mean Corpuscular Hemoglobin 31 pg (25-35) 31 pg (25-35) Mean Corpuscular Hemoglobin Concent 34 g/dL (31-37) 33 g/dL (31-37) Red Cell Distribution Width 14.7 % (11.5-14.5) 15.1 % (11.5-14.5) Platelet Count 288 x10^3/uL (140-400) 319 x10^3/uL (140-400) Neutrophils (%) (Auto) 50 % (31-73) 48 % (31-73) Lymphocytes (%) (Auto) 41 % (24-48) 41 % (24-48) Monocytes (%) (Auto) 8 % (0-9) 9 % (0-9) Eosinophils (%) (Auto) 2 % (0-3) 2 % (0-3) Basophils (%) (Auto) 0 % (0-3) 0 % (0-3) Neutrophils # (Auto) 2.7 x10^3uL (1.8-7.7) 2.5 x10^3uL (1.8-7.7) Lymphocytes # (Auto) 2.2 x10^3/uL (1.0-4.8) 2.1 x10^3/uL (1.0-4.8) Monocytes # (Auto) 0.4 x10^3/uL (0.0-1.1) 0.5 x10^3/uL (0.0-1.1) Eosinophils # (Auto) 0.1 x10^3/uL (0.0-0.7) 0.1 x10^3/uL (0.0-0.7) Basophils # (Auto) 0.0 x10^3/uL (0.0-0.2) 0.0 x10^3/uL (0.0-0.2) Sodium Level 136 mmol/L (136-145) 137 mmol/L (136-145) Potassium Level 4.0 mmol/L (3.5-5.1) 4.2 mmol/L (3.5-5.1) Chloride Level 98 mmol/L (98-107) 99 mmol/L (98-107) Carbon Dioxide Level 29 mmol/L (21-32) 31 mmol/L (21-32) Anion Gap 9 (6-14) 7 (6-14) Blood Urea Nitrogen 15 mg/dL (7-20) 13 mg/dL (7-20) Creatinine 0.9 mg/dL (0.6-1.0) 0.9 mg/dL (0.6-1.0) Estimated GFR (Cockcroft-Gault) 61.5 61.5 Glucose Level 103 mg/dL (70-99) 104 mg/dL (70-99) Calcium Level 8.5 mg/dL (8.5-10.1) 8.3 mg/dL (8.5-10.1) Magnesium Level 1.9 mg/dL (1.8-2.4) Triglycerides Level 61 mg/dL (0-150) Cholesterol Level 178 mg/dL (0-200) LDL Cholesterol, Calculated 80 mg/dL (0-100) VLDL Cholesterol, Calculated 12 mg/dL (0-40) Non-HDL Cholesterol Calculated 92 mg/dL (0-129) HDL Cholesterol 86 mg/dL (40-60) Cholesterol/HDL Ratio 2.1 Laboratory Tests Test 08/11/18 04:30 White Blood Count 5.2 x10^3/uL (4.0-11.0) Red Blood Count 3.54 x10^6/uL (3.50-5.40) Hemoglobin 10.8 g/dL (12.0-15.5) Hematocrit 32.9 % (36.0-47.0) Mean Corpuscular Volume 93 fL (79-100) Mean Corpuscular Hemoglobin 31 pg (25-35) Mean Corpuscular Hemoglobin Concent 33 g/dL (31-37) Red Cell Distribution Width 15.1 % (11.5-14.5) Platelet Count 319 x10^3/uL (140-400) Neutrophils (%) (Auto) 48 % (31-73) Lymphocytes (%) (Auto) 41 % (24-48) Monocytes (%) (Auto) 9 % (0-9) Eosinophils (%) (Auto) 2 % (0-3) Basophils (%) (Auto) 0 % (0-3) Neutrophils # (Auto) 2.5 x10^3uL (1.8-7.7) Lymphocytes # (Auto) 2.1 x10^3/uL (1.0-4.8) Monocytes # (Auto) 0.5 x10^3/uL (0.0-1.1) Eosinophils # (Auto) 0.1 x10^3/uL (0.0-0.7) Basophils # (Auto) 0.0 x10^3/uL (0.0-0.2) Sodium Level 137 mmol/L (136-145) Potassium Level 4.2 mmol/L (3.5-5.1) Chloride Level 99 mmol/L (98-107) Carbon Dioxide Level 31 mmol/L (21-32) Anion Gap 7 (6-14) Blood Urea Nitrogen 13 mg/dL (7-20) Creatinine 0.9 mg/dL (0.6-1.0) Estimated GFR (Cockcroft-Gault) 61.5 Glucose Level 104 mg/dL (70-99) Calcium Level 8.3 mg/dL (8.5-10.1) Triglycerides Level 61 mg/dL (0-150) Cholesterol Level 178 mg/dL (0-200) LDL Cholesterol, Calculated 80 mg/dL (0-100) VLDL Cholesterol, Calculated 12 mg/dL (0-40) Non-HDL Cholesterol Calculated 92 mg/dL (0-129) HDL Cholesterol 86 mg/dL (40-60) Cholesterol/HDL Ratio 2.1 Brief Hospital Course Ms. Knowles is a 73 old who presented with strokelike symptoms that have currently resolved. The patient was seen in consultation by neurology who did not recommend any changes to her medications. She usually is has her follow-up appointments with Dr. Rey at for her Parkinson's. The patient initially came in with elevated blood pressure which could account for her transient encephalopathy has definitely improved now that her blood pressure is normalized. Given her comorbidity of factor V Leyden there was a concern that she might be having an acute stroke but this has not been revealed no imaging studies. Her neurological status has remained stable and she was deemed appropriate by her sap pp consultant to be dismissed home once the results of her carotid and echocardiogram were given. Patient is in good spirits, signs and symptoms of alarm were discussed prior to discharge all of her concerns were addressed to the best of my abilities. Discharge Information Condition at Discharge: Improved Follow Up: Weeks Disposition/Orders: D/C to Home Scheduled Aspirin (Aspir 81) 81 Mg Tablet., 1 TAB PO DAILY, #30 Ref 5 (Reported) Entered as Reported by: MARK GARCIA on 06/02/16 1237 Last Action: Continued on 08/10/18 1056 by EWA CHAPPELL Budesonide/Formoterol Fumarate (Symbicort 80-4.5 Mcg Inhaler) 10.2 Gm Hfa.aer.ad , 2 PUFF IH BID for COPD for 30 Days, #10.2 Ref 5 Prescribed by: JUSTUS DE JESUS MD on 07/26/18 1002 Last Action: Converted on 08/10/18 1056 by NIAL CASTLE Buspirone Hcl (Buspirone Hcl) 15 Mg Tablet, 1 TAB PO TID for Anxiety/Depression , #60 (Reported) Entered as Reported by: Thalia Teague RN on 07/24/18 2246 Last Action: Converted on 08/10/18 1056 by NIAL CASTLE Carbidopa/Levodopa (Carbidopa-Levodopa 25-100 Tab) 1 Each Tablet, 2.5 TAB PO Q3HR W/A for Parkinson, (Reported) Entered as Reported by: ÁNGEL LOO on 04/16/16 0820 Last Action: Continued on 08/10/18 1056 by NIAL CASTLE Carvedilol (Coreg ) 12.5 Mg Tablet, 1 TAB PO BID for hypertension, #180 Ref 1 (Reported) . Entered as Reported by: XUAN HERNANDEZ on 10/13/15 2204 Last Action: Continued on 08/10/18 1056 by NIAL CASTLE Cholecalciferol (Vitamin D3) (Vitamin D3) 5,000 Unit Tablet, 1 TAB PO DAILY for supplement, (Reported) Entered as Reported by: KYLE DANIELS RN on 08/10/18 0312 Last Action: Converted on 08/10/18 1056 by NIAL CASTLE Clopidogrel Bisulfate (Clopidogrel) 75 Mg Tablet, [facility] #30 Ref 1 Prescribed by: RICHARD REESE MD on 05/09/15 1242 Last Action: Continued on 08/10/18 1056 by NIAL CASTLE Cyclobenzaprine Hcl (Cyclobenzaprine Hcl) 10 Mg Tablet, 1 TAB PO TID for MUscle spasm, #90 (Reported) Entered as Reported by: WILLARD CERVANTES on 08/15/16 1519 Last Action: Continued on 08/10/18 1056 by NIAL CASTLE Diltiazem Hcl (Cartia Xt) 180 Mg Cap.er.24h, 180 MG PO DAILY for Afib, (Reported ) Entered as Reported by: Thalia Teague RN on 07/24/182245 Last Action: Converted on 08/10/18 1056 by NIAL CASTLE Donepezil Hcl (Donepezil Hcl) 10 Mg Tablet, 1 TAB PO DAILY, #90 Ref 1 (Reported) Entered as Reported by: WILLARD CERVANTES on 08/15/16 1519 Last Action: Converted on 08/10/18 1056 by NIAL CASTLE Duloxetine Hcl (Duloxetine Hcl) 60 Mg Capsule.dr, 60 MG PO BID for Depression, ( Reported) Entered as Reported by: WILLARD CERVANTES on 08/15/16 1519 Last Action: Converted on 08/10/18 1056 by NIAL CASTLE Esomeprazole Magnesium (Nexium Capsule) 40 Mg Capsule.dr, 40 MG PO DAILY for gastric upset, (Reported) Entered as Reported by: MARIAA WILKINS on 09/01/13 1539 Last Action: Converted on 08/10/18 1056 by NIAL CASTLE Ferrous Sulfate (Ferrous Sulfate) 325 Mg Tablet, 1 TAB PO DAILY for supplement, (Reported) Entered as Reported by: KYLE DANIELS RN on 08/10/18 0312 Last Action: Continued on 08/10/18 105 by NIAL CASTLE Gabapentin (Gabapentin ) 300 Mg Capsule, 300 MG PO TID for NEUROGENIC PAIN, ( Reported) Entered as Reported by: Thalia Teague RN on 07/24/182245 Last Action: Continued on 08/10/18 1056 by NIAL CASTLE Lactobacillus Rhamnosus Gg (Culturelle) 1 Each Cap.sprink, 1 CAP PO BID, #60 Prescribed by: JENS AZAR on 05/12/17 1047 Last Action: Continued on 08/10/18 1056 by NIAL CASTLE Levothyroxine Sodium (Levothyroxine Sodium) 150 Mcg Tablet, 1 TAB PO DAILY07, # 30 Ref 5 (Reported) Entered as Reported by: GILA OH RPH on 05/09/17 1545 Last Action: Converted on 08/10/18 1056 by NIAL CASTLE Lidocaine (Lidoderm) 700 Mg Adh..patch, 1 PATCH TP HS for Back pain, #30 Ref 1 ( Reported) Entered as Reported by: MARK GARCIA on 06/02/16 1237 Last Action: Converted on 08/10/181055 by NIAL CASTLE Lorazepam (Lorazepam) 1 Mg Tablet, 0.5 MG PO QID for Anxiety, #90 (Reported) Entered as Reported by: WILLARD CERVANTES on 08/15/16 1519 Last Action: Continued on 08/10/181055 by NIAL CASTLE Melatonin (Melatonin) 3 Mg Tablet, 10 MG PO QHS for sleep, (Reported) Entered as Reported by: KYLE DANIELS RN on 08/10/18311 Last Action: Converted on 08/10/181055 by NIAL CASTLE Meloxicam (Meloxicam) 7.5 Mg Tablet, 7.5 MG PO DAILY for Mascle pain, (Reported) Entered as Reported by: Thalia Teague RN on 07/24/182245 Last Action: Converted on 08/10/181055 by NIAL CASTLE Metformin Hcl (Metformin Hcl) 500 Mg Tablet, 1 TAB PO BID for antidiabetic, #60 Ref 3 (Reported) Entered as Reported by: JULIOCESAR LYLES on 02/25/15 1345 Last Action: Converted on 08/10/181055 by NIAL CASTLE Methylcellulose (Fiber) 500 Mg Tablet, 500 MG PO BID for Constipation, (Reported ) Entered as Reported by: KYLE DANIELS RN on 08/10/18311 Last Action: Converted on 08/10/181055 by NIAL CASTLE Mirtazapine (Mirtazapine) 30 Mg Tab.rapdis, 30 MG PO HS, (Reported) Entered as Reported by: ÁNGEL LOO on 04/16/16 0814 Last Action: Converted on 08/10/181055 by NIAL CASTLE Oxycodone HCl (Oxycontin) 10 Mg Tab.er.12h, 10 MG PO TID for Pain, (Reported) Entered as Reported by: Thalia Teague RN on 07/24/182245 Last Action: Continued on 08/10/181055 by NIAL CASTLE Primidone (Mysoline) 50 Mg Tablet, 50 MG PO TID for Parkinson's, (Reported) Entered as Reported by: KYLE DANIELS RN on 08/10/18311 Last Action: Converted on 08/10/181055 by NIAL CASTLE Ropinirole Hcl (Ropinirole Hcl) 1 Mg Tablet, 1 MG PO TID, (Reported) Entered as Reported by: Danelle Arredondo on 11/15/16 0054 Last Action: Converted on 08/10/181055 by EWA CHAPPELL Vitamin E (Vitamin E) 1,000 Unit Capsule, 1,000 UNIT PO po for supplement, ( Reported) Entered as Reported by: KYLE DANIELS RN on 08/10/18311 Last Action: Converted on 08/10/18 105 by EWA CHAPPELL Zolpidem Tartrate (Zolpidem Tartrate) 5 Mg Tablet, 1 TAB PO QHS, #30 Ref 2 ( Reported) Entered as Reported by: ÁNGEL LOO on 04/16/16 0814 Last Action: Continued on 08/10/181055 by EWA CHAPPELL Scheduled PRN Docusate Sodium (Stool Softener) 50 Mg Capsule, 50 MG PO PRN PRN for CONSTIPATION, (Reported) Entered as Reported by: KYLE DANIELS RN on 08/10/18311 Last Action: Converted on 08/10/181055 by EWA CHAPPELL Metoclopramide Hcl (Reglan) 10 Mg Tablet, 1 TAB PO QID PRN for NAUSEA, #120 Prescribed by: SHERLEY BARBOUR on 11/09/17 0816 Last Action: Continued on 08/10/181055 by ANDREW BARRAGAN MD Aug 11, 2018 11:38
[2018-08-11 14:07] VITALS: BP 150/61
--- NOTE | 2018-08-11 15:33 | NUR ---
Discharge Note: LAYLA ROSSI Discharge instructions and discharge home medications reviewed with Patient and a copy given. All questions have been answered and understanding verbalized. Instructions and handouts were given. Discontinued lines and drains. Patient discharged to home self care.
[2018-08-11] MEDS ORDERED: DONEPEZIL HCL 10 MG TABLET. PO SCH (21:00)
[2018-08-11] MEDS ORDERED: ATORVASTATIN CALCIUM 10 MG TABLET. PO SCH (21:00)
== END 2018-08-11 15:35 | disposition home or self-care (01) | DRG 78 ==
LOC: ER 19:53 → 6 SOUTH 22:30 → 2 NORTH 08-10 16:08
PROVIDERS: ADMIT Internal Medicine; ATTEND Internal Medicine
DX: I67.4 Hypertensive encephalopathy (principal); D68.51 Activated protein C resistance; G81.94 Hemiplegia, unspecified affecting left nondominant side; E03.9 Hypothyroidism, unspecified; E11.43 Type 2 diabetes mellitus with diabetic autonomic (poly)neuropathy; G20 Parkinson's disease; G47.30 Sleep apnea, unspecified; H40.9 Unspecified glaucoma; I10 Essential (primary) hypertension; I25.10 Atherosclerotic heart disease of native coronary artery without angina pectoris; I34.0 Nonrheumatic mitral (valve) insufficiency; I25.2 Old myocardial infarction; I48.91 Unspecified atrial fibrillation; J44.9 Chronic obstructive pulmonary disease, unspecified; I65.22 Occlusion and stenosis of left carotid artery; K21.9 Gastro-esophageal reflux disease without esophagitis; K58.9 Irritable bowel syndrome, unspecified; R13.10 Dysphagia, unspecified; F32.9 Major depressive disorder, single episode, unspecified; F41.9 Anxiety disorder, unspecified; R29.810 Facial weakness; Z87.11 Personal history of peptic ulcer disease; Z96.659 Presence of unspecified artificial knee joint; Z79.899 Other long term (current) drug therapy; Z82.49 Family history of ischemic heart disease and other diseases of the circulatory system; Z86.73 Personal history of transient ischemic attack (TIA), and cerebral infarction without residual deficits; Z90.710 Acquired absence of both cervix and uterus; Z95.0 Presence of cardiac pacemaker; Z95.5 Presence of coronary angioplasty implant and graft; G89.29 Other chronic pain
CPT/HCPCS: 36415; 36600; 70450; 80048; 80061; 81001; 82805; 82962; 83735; 84443; 85025; 85027; 85610; 85730; 93005; 93880; 94640; 96361; 96374; 96375; 96376; J1885; J1940; J2270; J2405; J3010; J7030; J7613; J7626; J8597; 92610; 99285-25

== ENCOUNTER 2018-08-12 14:00 | Inpatient (IN) | payer MEDICARE ==
[~2018-08-12] VITALS: Ht 160 cm; Wt 86.7 kg
[~2018-08-12 14:00] MED LIST changes: +DOCU50CA9 PO; +FERR325T14 PO; +MELA3TAB2 PO; +METH-39 PO; +PRIM50TA24 PO; +VITA1000 PO
[2018-08-12 14:20] LABS: BASO % 0 % (0-3); EOS # 0.1 x10^3/uL (0.0-0.7); EOS % 1 % (0-3); HEMATOCRIT 38.5 % (36.0-47.0); HEMOGLOBIN 12.6 g/dL (12.0-15.5); LYMPH # 1.7 x10^3/uL (1.0-4.8); LYMPH % 26 % (24-48); MEAN CORPUSCULAR HEMOGLOBIN 30 pg (25-35); MEAN CORPUSCULAR HGB CONC 33 g/dL (31-37); MEAN CORPUSCULAR VOLUME 92 fL (79-100); MONO # 0.4 x10^3/uL (0.0-1.1); MONO % 7 % (0-9); NEUT # 4.3 x10^3uL (1.8-7.7); NEUT % 66 % (31-73); PLATELET COUNT 371 x10^3/uL (140-400); WHITE BLOOD COUNT 6.4 x10^3/uL (4.0-11.0)
[2018-08-12 14:29] LABS: PROTHROMBIN TIME PATIENT 12.1 SEC (11.7-14.0)
[2018-08-12 14:31] LABS: CALCIUM 9.7 mg/dL (8.5-10.1); CREATININE 0.9 mg/dL (0.6-1.0); GFR 61.5; POTASSIUM 3.9 mmol/L (3.5-5.1)
--- NOTE | 2018-08-12 14:36 | RAD ---
CT CODE STROKE HEAD WO Clinical indications: Altered mental status, ACUTE NEURODEFICIT COMPARISON: August 11, 2018. Technique: Noncontrast axial cross sectional scanning of the head was performed. PQRS compliance Statement One or more of the following individualized dose reduction techniques were utilized for this study: 1. Automated exposure control 2. Adjustment of the mA and/or kV according to patient size 3. Use of iterative reconstruction technique Findings: No acute intracranial hemorrhage or midline shift or mass-effect or hydrocephalus or extra-axial fluid collection is seen. Moderate bilateral periventricular white matter hypodensity is seen consistent with chronic small vessel ischemic disease in this age group. This is unchanged. No new focal hypodense area or sulci effacement is seen to indicate an acute infarct or edema radiographically. No skull fracture or pneumocephalus is seen. No opacification of the mastoid sinuses or the paranasal sinuses is seen. The maxillary sinuses are not completely seen in this study. Impression: No new intracranial abnormality is seen. Note-this critical result was called to the emergency room physician Dr. Mix at 2:32 PM on August 12, 2018. Electronically signed by: Philip Macario MD (08/12/2018 2:33 PM) [facility]
[2018-08-12 14:37] LABS: ALBUMIN 3.6 g/dL (3.4-5.0); ALBUMIN/GLOBULIN RATIO 0.9 (1.0-1.7); TOTAL BILIRUBIN 0.4 mg/dL (0.2-1.0); TOTAL PROTEIN 7.5 g/dL (6.4-8.2)
--- NOTE | 2018-08-12 14:57 | RAD ---
Single view of the chest. 08/12/2018 2:09 PM Indication: ACUTE NEURO DEFICIT,HEADACHES Comparison: CT chest July 25, 2018 Findings: Right-sided pacemaking device noted. No pneumothorax or pleural effusion is seen. No focal infiltrate is currently seen. Retrocardiac infiltrate seen on prior CT chest is not visualized on this portable chest radiograph. Heart size is normal. Bony thorax is grossly intact. IMPRESSION: 1.No radiographic evidence of acute cardiopulmonary process. 2. Previously seen retrocardiac infiltrate is not seen on this portable chest radiograph. Follow-up two-view chest radiograph or CT chest, when clinically feasible, recommended. Electronically signed by: Amari Bolanos MD (08/12/2018 2:55 PM) [id number]
--- NOTE | 2018-08-12 15:34 | PHYS DOC ---
Past Medical History Past Medical History: Anxiety, CAD, CVA, Depression, Diabetes-Type II, DVT, VT Additional Past Medical Histor: PARKINSON'S, GASTROPARESIS, CHRONIC BACK PAIN; factor V Past Surgical History: , Hysterectomy, Knee Replacement, Pacemaker, Tonsillectomy Additional Past Surgical Histo: CARDIAC STENT, BLADDER SX, BOWEL RESECTION, RIGHT SHOULDER SX, CATARACT SX Alcohol Use: None Drug Use: None Adult General Chief Complaint Chief Complaint: ALTERED MENTAL STATUS [facility] Patient is a 73 year old female who brought in by EMS because of focal neuro deficit and altered level of consciousness. Patient's daughter stated 1 hour prior to arrival to ER at 1300 she suddenly started to have facial droop with slurred speech and drooping fluids from corner of her mouth. Patient was confused and was not able to talk and move left upper and lower extremity was walking. Patient had blood pressure of 220 at home and at EMS arrival. Patient complaining of shortness of breath at arrival to ER without chest pain and states she is not able to talk or move her left side. Patient was seen in this emergency room and admitted 3 days ago with the same complaint and discharged yesterday without any remaining neuro deficit. Review of Systems Review of Systems Constitutional: Denies fever or chills [] Eyes: Denies change in visual acuity, redness, or eye pain [] HENT: Denies nasal congestion or sore throat [] Respiratory: Denies cough or shortness of breath [] Cardiovascular: No additional information not addressed in HPI [] GI: Denies abdominal pain, nausea, vomiting, bloody stools or diarrhea [] : Denies dysuria or hematuria [] Musculoskeletal: Denies back pain or joint pain [] Integument: Denies rash or skin lesions [] Neurologic: Reports headache, focal weakness , sensory changes [] Endocrine: Denies polyuria or polydipsia [] All other systems were reviewed and found to be within normal limits, except as documented in this note. Current Medications Current Medications Current Medications Medications (Trade) Dose Ordered Sig/Carlene Start Time Stop Time Status Last Admin Dose Admin Lorazepam (Ativan) 1 mg 1X ONCE 08/12/18 14:15 08/12/18 14:22 DC 08/12/18 14:22 1 MG Allergies Allergies Allergies Coded Allergies Type Severity Reaction Last Updated Verified Sulfa (Sulfonamide Antibiotics) Allergy Intermediate hives 11/01/17 Yes dexamethasone Allergy Intermediate 11/01/17 Yes Physical Exam Physical Exam Constitutional: Well developed, well nourished, mild distress, non-toxic appearance. [] HENT: Normocephalic, atraumatic, bilateral external ears normal, oropharynx moist, no oral exudates, nose normal. [] Eyes: PERRLA, EOMI, conjunctiva normal, no discharge. [] Neck: Normal range of motion, no tenderness, supple, no stridor. [] Cardiovascular:Heart rate regular rhythm, no murmur [] Lungs & Thorax: Bilateral breath sounds clear to auscultation [] Abdomen: Bowel sounds normal, soft, no tenderness, no masses, no pulsatile masses. [] Skin: Warm, dry, no erythema, no rash. [] Back: No tenderness, no CVA tenderness. [] Extremities: No tenderness, no cyanosis, no clubbing, ROM intact, no edema. [] Neurologic: Alert and oriented X 3, normal motor function, subjective left fascial decrease of sensation, no focal deficits noted. [] Psychologic: Affect anxious, judgement normal, mood normal. [] Current Patient Data Vital Signs Vital Signs Date Time Temp Pulse Resp B/P (MAP) Pulse Ox O2 Delivery O2 Flow Rate FiO2 08/12/18 14:00 99.0 76 18 211/77 (121) 100 Room Air 99.0 Lab Values Laboratory Tests Test 08/12/18 14:12 08/12/18 14:13 Glucose (Fingerstick) 101 mg/dL (70-99) H White Blood Count 6.4 x10^3/uL (4.0-11.0) Red Blood Count 4.20 x10^6/uL (3.50-5.40) Hemoglobin 12.6 g/dL (12.0-15.5) Hematocrit 38.5 % (36.0-47.0) Mean Corpuscular Volume 92 fL (79-100) Mean Corpuscular Hemoglobin 30 pg (25-35) Mean Corpuscular Hemoglobin Concent 33 g/dL (31-37) Red Cell Distribution Width 15.0 % (11.5-14.5) H Platelet Count 371 x10^3/uL (140-400) Neutrophils (%) (Auto) 66 % (31-73) Lymphocytes (%) (Auto) 26 % (24-48) Monocytes (%) (Auto) 7 % (0-9) Eosinophils (%) (Auto) 1 % (0-3) Basophils (%) (Auto) 0 % (0-3) Neutrophils # (Auto) 4.3 x10^3uL (1.8-7.7) Lymphocytes # (Auto) 1.7 x10^3/uL (1.0-4.8) Monocytes # (Auto) 0.4 x10^3/uL (0.0-1.1) Eosinophils # (Auto) 0.1 x10^3/uL (0.0-0.7) Basophils # (Auto) 0.0 x10^3/uL (0.0-0.2) Prothrombin Time 12.1 SEC (11.7-14.0) Prothrombin Time INR 0.9 (0.8-1.1) PTT 24 SEC (24-38) Sodium Level 136 mmol/L (136-145) Potassium Level 3.9 mmol/L (3.5-5.1) Chloride Level 97 mmol/L (98-107) L Carbon Dioxide Level 27 mmol/L (21-32) Anion Gap 12 (6-14) Blood Urea Nitrogen 21 mg/dL (7-20) H Creatinine 0.9 mg/dL (0.6-1.0) Estimated GFR (Cockcroft-Gault) 61.5 BUN/Creatinine Ratio 23 (6-20) H Glucose Level 122 mg/dL (70-99) H Calcium Level 9.7 mg/dL (8.5-10.1) Total Bilirubin 0.4 mg/dL (0.2-1.0) Aspartate Amino Transferase (AST) 23 U/L (15-37) Alanine Aminotransferase (ALT) 8 U/L (14-59) L Alkaline Phosphatase 115 U/L (46-116) Troponin I Quantitative < 0.017 ng/mL (0.000-0.055) Total Protein 7.5 g/dL (6.4-8.2) Albumin 3.6 g/dL (3.4-5.0) Albumin/Globulin Ratio 0.9 (1.0-1.7) L Laboratory Tests 08/12/18 14:13 Laboratory Tests 08/12/18 14:13 EKG EKG EKG interpreted by me. EKG at 1409 showed normal sinus rhythm at rate of 76, left del castillo axis, poor R-wave progress in anteroseptal leads, no acute ST and T- wave abnormalities.[] Radiology/Procedures Radiology/Procedures [facility] [address] [place] [address] IMAGING REPORT Signed PATIENT: LAYLA ROSSI ACCOUNT: [id number] : 1945 LOCATION: ER AGE: 73 SEX: F EXAM STATUS: REG ER ORD. PHYSICIAN: NACHO CURTIS MD REASON: acute neuro deficit PROCEDURE: PORTABLE CHEST 1V Single view of the chest. 08/12/2018 2:09 PM Indication: ACUTE NEURO DEFICIT,HEADACHES Comparison: CT chest July 25, 2018 Findings: Right-sided pacemaking device noted. No pneumothorax or pleural effusion is seen. No focal infiltrate is currently seen. Retrocardiac infiltrate seen on prior CT chest is not visualized on this portable chest radiograph. Heart size is normal. Bony thorax is grossly intact. IMPRESSION: 1.No radiographic evidence of acute cardiopulmonary process. 2. Previously seen retrocardiac infiltrate is not seen on this portable chest radiograph. Follow-up two-view chest radiograph or CT chest, when clinically feasible, recommended. Electronically signed by: Amari Gutierrez MD (08/12/2018 2:55 PM) [facility] DICTATED and SIGNED BY: AMARI GUTIERREZ MD DATE: 08/12/18 [id number] [place], [place] [id number] IMAGING REPORT Signed PATIENT: LAYLA ROSSI ACCOUNT: [id number] : 1945 LOCATION: ER AGE: 73 SEX: F EXAM STATUS: PRE ER ORD. PHYSICIAN: NACHO CURTIS MD REASON: acute neurodeficit PROCEDURE: CT CODE STROKE HEAD WO CT CODE STROKE HEAD WO Clinical indications: Altered mental status, ACUTE NEURODEFICIT COMPARISON: August 11, 2018. Technique: Noncontrast axial cross sectional scanning of the head was performed. PQRS compliance Statement One or more of the following individualized dose reduction techniques were utilized for this study: 1. Automated exposure control 2. Adjustment of the mA and/or kV according to patient size 3. Use of iterative reconstruction technique Findings: No acute intracranial hemorrhage or midline shift or mass-effect or hydrocephalus or extra-axial fluid collection is seen. Moderate bilateral periventricular white matter hypodensity is seen consistent with chronic small vessel ischemic disease in this age group. This is unchanged. No new focal hypodense area or sulci effacement is seen to indicate an acute infarct or edema radiographically. No skull fracture or pneumocephalus is seen. No opacification of the mastoid sinuses or the paranasal sinuses is seen. The maxillary sinuses are not completely seen in this study. Impression: No new intracranial abnormality is seen. Note-this critical result was called to the emergency room physician Dr. Curtis at 2:32 PM on August 12, 2018. Electronically signed by: Ronnie Macario MD (08/12/2018 2:33 PM) [facility] DICTATED and SIGNED BY: RONNIE MACARIO MD DATE: 08/12/18 1433 Course & Med Decision Making Course & Med Decision Making Pertinent Labs and Imaging studies reviewed. (See chart for details) Evaluation of patient in ER showed 73-year-old female patient brought in by EMS because of confusion and slurred speech and focal neuro deficit. Code stroke was activated with arrival of patient to ER. Patient had NIHS 1 was and not a candidate for TPA . Patient treated with Ativan and felt better with improvement of her anxiety and blood pressure and speech. CT head was unremarkable. Patient' daughter stated that mother states he is confused and not acting like her normal. Plan to admit patient for evaluation of neuro deficit. Dragon Disclaimer Dragon Disclaimer This electronic medical record was generated, in whole or in part, using a voice recognition dictation system. Departure Departure Impression: Primary Impression: TIA (transient ischemic attack) Additional Impressions: Hypertension Confusion Anxiety Dehydration Disposition: ADMITTED INPATIENT (1535) Admitting Physician: Mary Anne Jeffrey (accepted admission at 1536) Condition: IMPROVED Referrals: DB BAILEY MD (PCP) NIHSS Stroke Scale NIH Stroke Scale: NIH Stroke Scale Response (Comments) Value Level of Consciousness: 0 Alert/Responsive 0 LOC Questions: 0 Answers both correctly 0 LOC Commands: 0 Performs both tasks 0 Best Gaze: 0 Normal 0 Visual: 0 No visual loss 0 Facial Palsy: 0 Normal, symmetrical 0 Motor - Left Arm 0 No drift 0 Motor - Right Arm 0 No drift 0 Motor - Left Leg 0 No drift 0 Motor: Right Leg 0 No drift 0 Limb Ataxia: 0 Absent 0 Sensory: 1 Mid to moderate loss 1 Best Language: 0 Normal 0 Dysathria: 0 Normal 0 Extinction and Inattention: 0 Normal 0 Total 1 Problem Qualifiers Additional Impressions: Hypertension Hypertension type: essential hypertension Qualified Codes: I10 - Essential ( primary) hypertension NACHO CURTIS MD Aug 12, 2018 15:34
[2018-08-12] MEDS ORDERED: METOCLOPRAMIDE 10 MG TABLET. PO PRN (17:00)
[2018-08-12] MEDS: busPIRone 5 MG TABLET. PO SCH ×3 (17:15→21:36)
[2018-08-12] MEDS: CARVEDILOL 12.5 MG TABLET. PO SCH (17:15)
[2018-08-12] MEDS ORDERED: DOCUSATE SODIUM 100 MG CAPSULE. PO PRN (18:00)
[2018-08-12] MEDS: metFORMIN 500 MG TABLET PO SCH (18:00)
--- NOTE | 2018-08-12 18:09 | HP ---
ADMIT DATE: 08/12/2018 CHIEF COMPLAINT: Left-sided weakness, slurred speech, drooling, confusion. HISTORY OF PRESENT ILLNESS: The patient is a pleasant 73-year-old female who we just discharged. She is well known to my service. She has multiple problems. Once again, she presents with left-sided weakness, some slurred speech and facial droop. This apparently happens whenever her pressure gets up. She apparently was in the 200 range when she was at home, rates her symptoms as 7/10. She has associated anxiety, has been occurring for several hours. Her daughter explains that she lives at home with the patient and she has been witnessing these problems whenever her pressure gets up. I discussed the case with ER physician. We are going to admit the patient and consult Neurology. PAST MEDICAL HISTORY: Multiple issues including anxiety, Parkinson's, coronary artery disease, hypertension, previous stroke, depression, diabetes, gastroparesis, chronic pain, factor V Leiden mutation, , hysterectomy, knee replacement, pacemaker, tonsillectomy, cardiac stents, bladder surgery, bladder suspension, bowel resection, right shoulder surgery and cataract surgery. ALLERGIES: SULFA AND DEXAMETHASONE. FAMILY HISTORY: Coronary disease. SOCIAL HISTORY: She lives at home with her daughter. She does not drink, smoke or take drugs. She is retired. MEDICATIONS: Reviewed. She is on 30 home meds including donepezil, cyclobenzaprine, iron, Plavix, Coreg, Cartia XT, aspirin, meloxicam, OxyContin, Mysoline, gabapentin, duloxetine, mirtazapine, lorazepam, buspirone (I guess this is Wellbutrin), Ambien, Sinemet, Requip, Symbicort, stool softeners, fiber, Nexium, Reglan, lactobacillus, metformin, Synthroid, lidocaine, and vitamins. REVIEW OF SYSTEMS: GENERAL: No history of weight change, weakness or fevers. SKIN: No bruising, hair changes or rashes. EYES: No blurred, double or loss of vision. NOSE AND THROAT: No history of nosebleeds, hoarseness or sore throat. HEART: No history of palpitations, chest pain or shortness of breath on exertion. LUNGS: Denies cough, hemoptysis, wheezing or shortness of breath. GASTROINTESTINAL: Denies changes in appetite, nausea, vomiting, diarrhea or constipation. GENITOURINARY: No history of frequency, urgency, hesitancy or nocturia. NEUROLOGIC: She complains of left-sided weakness and facial droop. PSYCHIATRIC: No history of panic, anxiety or depression. ENDOCRINE: No history of heat or cold intolerance, polyuria or polydipsia. EXTREMITIES: Denies muscle weakness, joint pain, pain on walking or stiffness. PHYSICAL EXAMINATION: VITAL SIGNS: Temperature 99, pulse 76, respirations 18, blood pressure 186/94. It was even higher earlier. HEART: Distant S1, S2. LUNGS: Clear to auscultation. ABDOMEN: Soft, positive bowel sounds. EXTREMITIES: Trace edema. SKIN: No rashes. ENDOCRINE: No thyromegaly. LYMPHATICS: No cervical nodes. HEMATOPOIETIC: No bruising. PSYCHIATRIC: She is depressed. NEUROLOGICAL: She has got left-sided weakness and a slight facial droop and complained of a headache. LABORATORY DATA: White count 6, hemoglobin 12, platelets 371. Electrolytes are normal other than a chloride of 97 and a BUN of 21. Her glucose is 101. Troponin is 0. CT of the head is negative. Chest x-ray, no radiographic evidence of acute cardiopulmonary process. Previously seen retrocardiac infiltrate is not seen on this portable chest radiograph. ASSESSMENT AND PLAN: Stroke symptoms secondary to malignant hypertension. The patient has been admitted. We will get her home meds, going on I am going add in Lasix 40 IV every day. Consult Neurology and Cardiology. Full code. DVT prophylaxis, PT, OT, frequent labs, cardiac monitoring. PROGNOSIS: Guarded. EWA CHAPPELL DO DR: BRIANA/baldomero JOB#: [id number] / [id number]
[2018-08-12] MEDS: LORazepam 1 MG TABLET PO SCH ×2 (18:10→21:38)
[2018-08-12] MEDS: FUROSEMIDE 40 MG TABLET. PO SCH (18:10)
[2018-08-12] MEDS ORDERED: ACETAMINOPHEN 500 MG TABLET PO ONE (18:15)
[2018-08-12 18:40] VITALS: BP 143/81
[2018-08-12] MEDS ORDERED: NON FORMULARY ITEM (Melatonin 10 MG) PO SCH (21:00)
[2018-08-12] MEDS ORDERED: NON FORMULARY ITEM (Budesonide/Formoterol Fumarate (Symbicort 80-4.5 Mcg Inhaler) 2 PUFF) IH SCH (21:00)
[2018-08-12] MEDS: BUDESONIDE 0.5 MG/2 ML NEBU. NEB SCH (21:09)
[2018-08-12] MEDS: ALBUTEROL SULFATE 2.5 MG/3 ML NEBU. NEB SCH (21:09)
[2018-08-12] MEDS: LIDOCAINE (700MG/PATCH) PATCH. TD SCH (21:35)
[2018-08-12] MEDS: CALCIUM POLYCARBOPHIL 625 MG TABLET PO SCH (21:36)
[2018-08-12] MEDS: rOPINIRole 1 MG TABLET. PO SCH (21:36)
[2018-08-12] MEDS: PRIMIDONE 50 MG TABLET PO SCH (21:36)
[2018-08-12] MEDS: DULoxetine HCL 30 MG CAPSULE.DR PO SCH (21:36)
[2018-08-12] MEDS: ZOLPIDEM 5 MG TABLET. PO SCH (21:36)
[2018-08-12] MEDS: LACTOBACILLUS RHAMNOSUS GG 1 CAPSULE. PO SCH (21:36)
[2018-08-12] MEDS: oxyCODONE ER 10 MG TAB.ER.12H PO SCH (21:37)
[2018-08-12] MEDS: CYCLOBENZAPRINE 10 MG TABLET. PO SCH (21:37)
[2018-08-12] MEDS: GABAPENTIN 300 MG CAPSULE. PO SCH (21:37)
[2018-08-12] MEDS: MIRTAZAPINE 15 MG TABLET PO SCH (21:37)
[2018-08-12] MEDS: CARBIDOPA/LEVODOPA 25/100MG TABLET PO SCH (21:38)
[2018-08-12 23:05] VITALS: BP 149/50
[2018-08-13] MEDS: ALBUTEROL SULFATE 2.5 MG/3 ML NEBU. NEB SCH ×4 (00:20→20:15)
[2018-08-13 03:05] VITALS: BP 152/54
[2018-08-13 05:19] LABS: BASO % 0 % (0-3); EOS # 0.1 x10^3/uL (0.0-0.7); EOS % 2 % (0-3); HEMATOCRIT 34.5 % (36.0-47.0); HEMOGLOBIN 11.4 g/dL (12.0-15.5); LYMPH # 1.9 x10^3/uL (1.0-4.8); LYMPH % 42 % (24-48); MEAN CORPUSCULAR HEMOGLOBIN 31 pg (25-35); MEAN CORPUSCULAR HGB CONC 33 g/dL (31-37); MEAN CORPUSCULAR VOLUME 93 fL (79-100); MONO # 0.4 x10^3/uL (0.0-1.1); MONO % 9 % (0-9); NEUT # 2.2 x10^3uL (1.8-7.7); NEUT % 47 % (31-73); PLATELET COUNT 345 x10^3/uL (140-400); RED BLOOD COUNT 3.73 x10^6/uL (3.50-5.40); WHITE BLOOD COUNT 4.7 x10^3/uL (4.0-11.0)
[2018-08-13] MEDS: LEVOTHYROXINE 150 MCG TABLET PO SCH (05:38)
[2018-08-13 05:46] LABS: CALCIUM 8.6 mg/dL (8.5-10.1); GFR 54.5; POTASSIUM 3.6 mmol/L (3.5-5.1)
--- NOTE | 2018-08-13 06:38 | EKG ---
[facility] [address] [place] [address] Test Date: 2018-08-12 Test Time: 14:09:44 Pat Name: LAYLA ROSSI Department: Room: 2 1 Gender: F Resin Coater: : 1945 Requested By: NACHO CURTIS Order Number: [id number] Reading MD: Babar Ayala MD Measurements Intervals [place] Rate: 76 P: 65 NH: 156 QRS: -14 QRSD: 84 T: 21 QT: 386 QTc: 434 Interpretive Statements SINUS RHYTHM CONSIDER PRIOR INFERIOR INFARCT Electronically Signed On 08-15-2018 9:49:39 CDT by Babar Ayala MD
[2018-08-13 07:45] VITALS: BP 192/86
[2018-08-13] MEDS: busPIRone 5 MG TABLET. PO SCH ×3 (08:06→21:49)
[2018-08-13] MEDS: LORazepam 1 MG TABLET PO SCH ×4 (08:06→21:49)
[2018-08-13] MEDS: LACTOBACILLUS RHAMNOSUS GG 1 CAPSULE. PO SCH ×2 (08:07→21:51)
[2018-08-13] MEDS: DULoxetine HCL 30 MG CAPSULE.DR PO SCH ×2 (08:07→21:53)
[2018-08-13] MEDS: MELOXICAM 7.5 MG TABLET PO SCH (08:07)
[2018-08-13] MEDS: VITAMIN E 200 UNIT CAPSULE. PO SCH (08:07)
[2018-08-13] MEDS: FERROUS SULFATE 325 MG TABLET. PO SCH (08:07)
[2018-08-13] MEDS: CLOPIDOGREL BISULFATE 75 MG TABLET PO SCH (08:07)
[2018-08-13] MEDS: PRIMIDONE 50 MG TABLET PO SCH ×3 (08:07→21:49)
[2018-08-13] MEDS: CARBIDOPA/LEVODOPA 25/100MG TABLET PO SCH ×2 (08:08→21:50)
[2018-08-13] MEDS: ASPIRIN ENTERIC COATED 81 MG TABLET.DR. PO SCH (08:09)
[2018-08-13] MEDS: DONEPEZIL HCL 10 MG TABLET. PO SCH (08:09)
[2018-08-13] MEDS: oxyCODONE ER 10 MG TAB.ER.12H PO SCH ×3 (08:09→21:51)
[2018-08-13] MEDS: PANTOPRAZOLE 40 MG TABLET.DR. PO SCH (08:09)
[2018-08-13] MEDS: CHOLECALCIFEROL (VITAMIN D3) 5,000 UNIT CAPSULE PO SCH (08:09)
[2018-08-13] MEDS: GABAPENTIN 300 MG CAPSULE. PO SCH ×3 (08:10→21:50)
[2018-08-13] MEDS: CARVEDILOL 12.5 MG TABLET. PO SCH ×2 (08:10→18:17)
[2018-08-13] MEDS: CALCIUM POLYCARBOPHIL 625 MG TABLET PO SCH ×2 (08:10→21:50)
[2018-08-13] MEDS: CYCLOBENZAPRINE 10 MG TABLET. PO SCH ×3 (08:10→21:51)
[2018-08-13] MEDS: rOPINIRole 1 MG TABLET. PO SCH ×3 (08:10→21:50)
[2018-08-13] MEDS: FUROSEMIDE 40 MG TABLET. PO SCH (08:10)
[2018-08-13] MEDS: metFORMIN 500 MG TABLET PO SCH ×2 (08:10→18:14)
[2018-08-13] MEDS: BUDESONIDE 0.5 MG/2 ML NEBU. NEB SCH ×2 (08:24→20:15)
[2018-08-13] MEDS: PATCH REMOVAL. MC SCH (09:00)
--- NOTE | 2018-08-13 09:46 | PDOC ---
PROGRESS NOTES History of Present Illness History of Present Illness ASSESSMENT AND PLAN: Stroke symptoms secondary to malignant hypertension. POSSIBLE TIA Hypertensive encephalopathy morbid obesity admitted. home meds, add Lasix 40 IV every day. Consult Neurology consult Cardiology. Full code. DVT prophylaxis, PT, OT, frequent labs, cardiac monitoring. iv hydralazine 10mg q 4 hrs prn bp support Follow-up two-view chest radiograph or CT chest, when clinically feasible, recommended. PROGNOSIS: Guarded. Vitals Vitals Vital Signs Date Time Temp Pulse Resp B/P (MAP) Pulse Ox O2 Delivery O2 Flow Rate FiO2 08/13/18 08:26 Room Air 08/13/18 08:10 78 192/86 08/13/18 08:09 17 08/13/18 07:45 98.0 94 98.0 Physical Exam Physical Exam LUNGS: Clear to auscultation. ABDOMEN: Soft, positive bowel sounds. EXTREMITIES: Trace edema. SKIN: No rashes. ENDOCRINE: No thyromegaly. LYMPHATICS: No cervical nodes. HEMATOPOIETIC: No bruising. PSYCHIATRIC: She is depressed. NEUROLOGICAL: left-sided weakness and a slight facial droop General: Oriented X3, Cooperative, mild distress Lungs: Clear Abdomen: Soft Extremities: No cyanosis Skin: No significant lesion Labs LABS Single view of the chest. 08/12/2018 2:09 PM Indication: ACUTE NEURO DEFICIT,HEADACHES Comparison: CT chest July 25, 2018 Findings: Right-sided pacemaking device noted. No pneumothorax or pleural effusion is seen. No focal infiltrate is currently seen. Retrocardiac infiltrate seen on prior CT chest is not visualized on this portable chest radiograph. Heart size is normal. Bony thorax is grossly intact. IMPRESSION: 1.No radiographic evidence of acute cardiopulmonary process. 2. Previously seen retrocardiac infiltrate is not seen on this portable chest radiograph. Follow-up two-view chest radiograph or CT chest, when clinically feasible, recommended. Electronically signed by: Amari Bolanos MD (08/12/2018 2:55 PM) [id number] Indication:Pneumonia TECHNIQUE: CT chest without IV contrast with multiplanar reformats. COMPARISON:None FINDINGS: Heart is normal in size. No pericardial or pleural effusion. Cardiac pacer leads are seen in the right heart. No enlarged axillary, mediastinal adenopathy. Evaluation of hilar lymphadenopathy is limited due to lack of IV contrast. Focal opacity is seen in the left lower lobe with air bronchograms. Central airways are patent. Otherwise, lungs are clear. Visualized noncontrast sections through the liver, spleen, gallbladder, pancreas, adrenals within normal limits. No suspicious bony lesion. IMPRESSION: Findings suggestive of left lower lobe pneumonia. Electronically signed by: Joe Young DO (07/25/2018 11:27 AM) [facility] DICTATED and SIGNED BY: JOE YOUNG DO CT CODE STROKE HEAD WO Clinical indications: Altered mental status, ACUTE NEURODEFICIT COMPARISON: August 11, 2018. Technique: Noncontrast axial cross sectional scanning of the head was performed. PQRS compliance Statement One or more of the following individualized dose reduction techniques were utilized for this study: 1. Automated exposure control 2. Adjustment of the mA and/or kV according to patient size 3. Use of iterative reconstruction technique Findings: No acute intracranial hemorrhage or midline shift or mass-effect or hydrocephalus or extra-axial fluid collection is seen. Moderate bilateral periventricular white matter hypodensity is seen consistent with chronic small vessel ischemic disease in this age group. This is unchanged. No new focal hypodense area or sulci effacement is seen to indicate an acute infarct or edema radiographically. No skull fracture or pneumocephalus is seen. No opacification of the mastoid sinuses or the paranasal sinuses is seen. The maxillary sinuses are not completely seen in this study. Impression: No new intracranial abnormality is seen. Laboratory Tests Test 08/12/18 14:12 08/12/18 14:13 08/13/18 03:20 Glucose (Fingerstick) 101 mg/dL (70-99) White Blood Count 6.4 x10^3/uL (4.0-11.0) 4.7 x10^3/uL (4.0-11.0) Red Blood Count 4.20 x10^6/uL (3.50-5.40) 3.73 x10^6/uL (3.50-5.40) Hemoglobin 12.6 g/dL (12.0-15.5) 11.4 g/dL (12.0-15.5) Hematocrit 38.5 % (36.0-47.0) 34.5 % (36.0-47.0) Mean Corpuscular Volume 92 fL (79-100) 93 fL (79-100) Mean Corpuscular Hemoglobin 30 pg (25-35) 31 pg (25-35) Mean Corpuscular Hemoglobin Concent 33 g/dL (31-37) 33 g/dL (31-37) Red Cell Distribution Width 15.0 % (11.5-14.5) 15.0 % (11.5-14.5) Platelet Count 371 x10^3/uL (140-400) 345 x10^3/uL (140-400) Neutrophils (%) (Auto) 66 % (31-73) 47 % (31-73) Lymphocytes (%) (Auto) 26 % (24-48) 42 % (24-48) Monocytes (%) (Auto) 7 % (0-9) 9 % (0-9) Eosinophils (%) (Auto) 1 % (0-3) 2 % (0-3) Basophils (%) (Auto) 0 % (0-3) 0 % (0-3) Neutrophils # (Auto) 4.3 x10^3uL (1.8-7.7) 2.2 x10^3uL (1.8-7.7) Lymphocytes # (Auto) 1.7 x10^3/uL (1.0-4.8) 1.9 x10^3/uL (1.0-4.8) Monocytes # (Auto) 0.4 x10^3/uL (0.0-1.1) 0.4 x10^3/uL (0.0-1.1) Eosinophils # (Auto) 0.1 x10^3/uL (0.0-0.7) 0.1 x10^3/uL (0.0-0.7) Basophils # (Auto) 0.0 x10^3/uL (0.0-0.2) 0.0 x10^3/uL (0.0-0.2) Prothrombin Time 12.1 SEC (11.7-14.0) Prothromb Time International Ratio 0.9 (0.8-1.1) Activated Partial Thromboplast Time 24 SEC (24-38) Sodium Level 136 mmol/L (136-145) 139 mmol/L (136-145) Potassium Level 3.9 mmol/L (3.5-5.1) 3.6 mmol/L (3.5-5.1) Chloride Level 97 mmol/L (98-107) 99 mmol/L (98-107) Carbon Dioxide Level 27 mmol/L (21-32) 30 mmol/L (21-32) Anion Gap 12 (6-14) 10 (6-14) Blood Urea Nitrogen 21 mg/dL (7-20) 20 mg/dL (7-20) Creatinine 0.9 mg/dL (0.6-1.0) 1.0 mg/dL (0.6-1.0) Estimated GFR (Cockcroft-Gault) 61.5 54.5 BUN/Creatinine Ratio 23 (6-20) Glucose Level 122 mg/dL (70-99) 102 mg/dL (70-99) Calcium Level 9.7 mg/dL (8.5-10.1) 8.6 mg/dL (8.5-10.1) Total Bilirubin 0.4 mg/dL (0.2-1.0) Aspartate Amino Transf (AST/SGOT) 23 U/L (15-37) Alanine Aminotransferase (ALT/SGPT) 8 U/L (14-59) Alkaline Phosphatase 115 U/L (46-116) Troponin I Quantitative < 0.017 ng/mL (0.000-0.055) Total Protein 7.5 g/dL (6.4-8.2) Albumin 3.6 g/dL (3.4-5.0) Albumin/Globulin Ratio 0.9 (1.0-1.7) Assessment and Plan Assessmemt and Plan Problems Medical Problems: (1) Anxiety Status: Acute (2) Confusion Status: Acute (3) Dehydration Status: Acute (4) Hypertension Status: Acute (5) TIA (transient ischemic attack) Status: Acute * Response to training Problem List (body system elements) * Impaired fnctnl mobility * Heart Rate * Strength * Blood Pressure * Balance * Coordination * Knowledge-safe techniques * Pain Clinical Presentation * Evolving Evaluation Complexity Level * Moderate Complexity PAST MEDICAL HISTORY Cardiovascular: AFIB (?), CAD, HTN, Hyperlipidemia, Valve insufficiency (MR), Other (cardiomyopathy) Pulmonary: COPD, Pneumonia CENTRAL NERVOUS SYSTEM: CVA, Seizure, TIA, Other (parkinsons) GI: Constipation Heme/Onc: Other (Factor V leiden) Musculoskeletal: low back pain, Osteoarthritis Rheumatologic: No pertinent hx Infectious disease: No pertinent hx ENT: Other (cataract; glaucoma) Renal/: UTI Endocrine: Hypothyroidism PAST SURGICAL HISTORY Past Surgical History: Pacemaker, Cataract Removal, (x3), Hernia Repair, Total knee replacement (bilateral), Tonsillectomy, Hysterectomy, Colectomy (gregg), Other (nasal septum repair; PCI/stent 2016; bladder surgery; bilateral eye surgery, capal tunnel release; back surgery) FAMILY HISTORY Family History noncontributory SOCIAL HISTORY Smoke: Quit (remotely>10 yrs) ALCOHOL: none Drugs: None PAST MEDICAL HISTORY: Multiple issues including anxiety, Parkinson's, coronary artery disease, hypertension, previous stroke, depression, diabetes, gastroparesis, chronic pain, factor V Leiden mutation, , hysterectomy, knee replacement, pacemaker, tonsillectomy, cardiac stents, bladder surgery, bladder suspension, bowel resection, right shoulder surgery and cataract surgery. ALLERGIES: SULFA AND DEXAMETHASONE. FAMILY HISTORY: Coronary disease. SOCIAL HISTORY: She lives at home with her daughter. She does not drink, smoke or take drugs. She is retired. Comment Review of Relevant I have reviewed the following items dina (where applicable) has been applied. Labs Laboratory Tests Test 08/12/18 14:12 08/12/18 14:13 08/13/18 03:20 Glucose (Fingerstick) 101 mg/dL (70-99) White Blood Count 6.4 x10^3/uL (4.0-11.0) 4.7 x10^3/uL (4.0-11.0) Red Blood Count 4.20 x10^6/uL (3.50-5.40) 3.73 x10^6/uL (3.50-5.40) Hemoglobin 12.6 g/dL (12.0-15.5) 11.4 g/dL (12.0-15.5) Hematocrit 38.5 % (36.0-47.0) 34.5 % (36.0-47.0) Mean Corpuscular Volume 92 fL (79-100) 93 fL (79-100) Mean Corpuscular Hemoglobin 30 pg (25-35) 31 pg (25-35) Mean Corpuscular Hemoglobin Concent 33 g/dL (31-37) 33 g/dL (31-37) Red Cell Distribution Width 15.0 % (11.5-14.5) 15.0 % (11.5-14.5) Platelet Count 371 x10^3/uL (140-400) 345 x10^3/uL (140-400) Neutrophils (%) (Auto) 66 % (31-73) 47 % (31-73) Lymphocytes (%) (Auto) 26 % (24-48) 42 % (24-48) Monocytes (%) (Auto) 7 % (0-9) 9 % (0-9) Eosinophils (%) (Auto) 1 % (0-3) 2 % (0-3) Basophils (%) (Auto) 0 % (0-3) 0 % (0-3) Neutrophils # (Auto) 4.3 x10^3uL (1.8-7.7) 2.2 x10^3uL (1.8-7.7) Lymphocytes # (Auto) 1.7 x10^3/uL (1.0-4.8) 1.9 x10^3/uL (1.0-4.8) Monocytes # (Auto) 0.4 x10^3/uL (0.0-1.1) 0.4 x10^3/uL (0.0-1.1) Eosinophils # (Auto) 0.1 x10^3/uL (0.0-0.7) 0.1 x10^3/uL (0.0-0.7) Basophils # (Auto) 0.0 x10^3/uL (0.0-0.2) 0.0 x10^3/uL (0.0-0.2) Prothrombin Time 12.1 SEC (11.7-14.0) Prothromb Time International Ratio 0.9 (0.8-1.1) Activated Partial Thromboplast Time 24 SEC (24-38) Sodium Level 136 mmol/L (136-145) 139 mmol/L (136-145) Potassium Level 3.9 mmol/L (3.5-5.1) 3.6 mmol/L (3.5-5.1) Chloride Level 97 mmol/L (98-107) 99 mmol/L (98-107) Carbon Dioxide Level 27 mmol/L (21-32) 30 mmol/L (21-32) Anion Gap 12 (6-14) 10 (6-14) Blood Urea Nitrogen 21 mg/dL (7-20) 20 mg/dL (7-20) Creatinine 0.9 mg/dL (0.6-1.0) 1.0 mg/dL (0.6-1.0) Estimated GFR (Cockcroft-Gault) 61.5 54.5 BUN/Creatinine Ratio 23 (6-20) Glucose Level 122 mg/dL (70-99) 102 mg/dL (70-99) Calcium Level 9.7 mg/dL (8.5-10.1) 8.6 mg/dL (8.5-10.1) Total Bilirubin 0.4 mg/dL (0.2-1.0) Aspartate Amino Transf (AST/SGOT) 23 U/L (15-37) Alanine Aminotransferase (ALT/SGPT) 8 U/L (14-59) Alkaline Phosphatase 115 U/L (46-116) Troponin I Quantitative < 0.017 ng/mL (0.000-0.055) Total Protein 7.5 g/dL (6.4-8.2) Albumin 3.6 g/dL (3.4-5.0) Albumin/Globulin Ratio 0.9 (1.0-1.7) Laboratory Tests Test 08/12/18 14:12 08/12/18 14:13 08/13/18 03:20 Glucose (Fingerstick) 101 mg/dL (70-99) White Blood Count 6.4 x10^3/uL (4.0-11.0) 4.7 x10^3/uL (4.0-11.0) Red Blood Count 4.20 x10^6/uL (3.50-5.40) 3.73 x10^6/uL (3.50-5.40) Hemoglobin 12.6 g/dL (12.0-15.5) 11.4 g/dL (12.0-15.5) Hematocrit 38.5 % (36.0-47.0) 34.5 % (36.0-47.0) Mean Corpuscular Volume 92 fL (79-100) 93 fL (79-100) Mean Corpuscular Hemoglobin 30 pg (25-35) 31 pg (25-35) Mean Corpuscular Hemoglobin Concent 33 g/dL (31-37) 33 g/dL (31-37) Red Cell Distribution Width 15.0 % (11.5-14.5) 15.0 % (11.5-14.5) Platelet Count 371 x10^3/uL (140-400) 345 x10^3/uL (140-400) Neutrophils (%) (Auto) 66 % (31-73) 47 % (31-73) Lymphocytes (%) (Auto) 26 % (24-48) 42 % (24-48) Monocytes (%) (Auto) 7 % (0-9) 9 % (0-9) Eosinophils (%) (Auto) 1 % (0-3) 2 % (0-3) Basophils (%) (Auto) 0 % (0-3) 0 % (0-3) Neutrophils # (Auto) 4.3 x10^3uL (1.8-7.7) 2.2 x10^3uL (1.8-7.7) Lymphocytes # (Auto) 1.7 x10^3/uL (1.0-4.8) 1.9 x10^3/uL (1.0-4.8) Monocytes # (Auto) 0.4 x10^3/uL (0.0-1.1) 0.4 x10^3/uL (0.0-1.1) Eosinophils # (Auto) 0.1 x10^3/uL (0.0-0.7) 0.1 x10^3/uL (0.0-0.7) Basophils # (Auto) 0.0 x10^3/uL (0.0-0.2) 0.0 x10^3/uL (0.0-0.2) Prothrombin Time 12.1 SEC (11.7-14.0) Prothromb Time International Ratio 0.9 (0.8-1.1) Activated Partial Thromboplast Time 24 SEC (24-38) Sodium Level 136 mmol/L (136-145) 139 mmol/L (136-145) Potassium Level 3.9 mmol/L (3.5-5.1) 3.6 mmol/L (3.5-5.1) Chloride Level 97 mmol/L (98-107) 99 mmol/L (98-107) Carbon Dioxide Level 27 mmol/L (21-32) 30 mmol/L (21-32) Anion Gap 12 (6-14) 10 (6-14) Blood Urea Nitrogen 21 mg/dL (7-20) 20 mg/dL (7-20) Creatinine 0.9 mg/dL (0.6-1.0) 1.0 mg/dL (0.6-1.0) Estimated GFR (Cockcroft-Gault) 61.5 54.5 BUN/Creatinine Ratio 23 (6-20) Glucose Level 122 mg/dL (70-99) 102 mg/dL (70-99) Calcium Level 9.7 mg/dL (8.5-10.1) 8.6 mg/dL (8.5-10.1) Total Bilirubin 0.4 mg/dL (0.2-1.0) Aspartate Amino Transf (AST/SGOT) 23 U/L (15-37) Alanine Aminotransferase (ALT/SGPT) 8 U/L (14-59) Alkaline Phosphatase 115 U/L (46-116) Troponin I Quantitative < 0.017 ng/mL (0.000-0.055) Total Protein 7.5 g/dL (6.4-8.2) Albumin 3.6 g/dL (3.4-5.0) Albumin/Globulin Ratio 0.9 (1.0-1.7) Medications Current Medications Lorazepam (Ativan) 1 mg 1X ONCE IV Last administered on 08/12/18 14:22; Start 08/12/18 at 14:15; Stop 08/12/18 at 14:22; Status DC Furosemide (Lasix) 40 mg DAILY PO Last administered on 08/13/18at 08:10; Start at 17:00 Aspirin (Ecotrin) 81 mg DAILY PO Last administered on 08/13/18 08:09; Start 08/13/18 at 09:00 Carbidopa/Levodopa (Sinemet 25/100) 2.5 tab BID PO Last administered on 08:08; Start 08/12/18 at 21:00 Carvedilol (Coreg) 12.5 mg BIDWMEALS PO Last administered on 08/13/18at 08:10; Start 08/12/18 at 17:15 Clopidogrel Bisulfate (Plavix) 75 mg DAILYWBKFT PO Last administered on 08:07; Start 08/13/18 at 08:00 Cyclobenzaprine HCl (Flexeril) 10 mg TID PO Last administered on 08/13/18 08:10 ; Start 08/12/18 at 21:00 Ferrous Sulfate (Feosol) 325 mg DAILY08 PO Last administered on 08/13/18 08:07 ; Start 08/13/18 at 08:00 Gabapentin (Neurontin) 300 mg TID PO Last administered on 08/13/18 08:10; Start 08/12/18 at 21:00 Lactobacillus Rhamnosus (Culturelle) 1 cap BID PO Last administered on 08:07; Start 08/12/18 at 21:00 Lorazepam (Ativan) 0.5 mg QID PO Last administered on 08/13/18 08:06; Start 08/12/18 at 17:00 Metoclopramide HCl (Reglan) 10 mg PRN QID PRN PO NAUSEA; Start 08/12/18 at 17:00 Oxycodone HCl (OxyCONTIN) 10 mg TID PO Last administered on 08/13/18 08:09; Start 08/12/18 at 21:00 Zolpidem Tartrate (Ambien) 5 mg QHS PO Last administered on 08/12/18 21:36; Start 08/12/18 at 21:00 Non-Formulary Medication (Budesonide/ Formoterol Fumarate (Symbicort 80-4.5 Mcg Inhaler)) 2 puff BID IH ; Start 08/12/18 at 21:00; Status UNV Buspirone HCl (Buspar) 153 mg TID PO ; Start 08/12/18 at 17:15; Stop 08/12/18 at 21:21; Status DC Vitamin D (Vitamin D3) 5,000 unit DAILY PO Last administered on 08/13/18 08:09 ; Start 08/13/18 at 09:00 Diltiazem HCl (Cardizem 24hr Cd) 180 mg DAILY PO Last administered on 08/13/18 08:09; Start 08/13/18 at 09:00 Docusate Sodium (Colace) 100 mg PRN DAILY PRN PO STOOL SOFTNER; Start 08/12/18 at 18:00 Donepezil HCl (Aricept) 10 mg DAILY PO Last administered on 08/13/18 08:09; Start 08/13/18 at 09:00 Duloxetine HCl (Cymbalta) 60 mg BID PO Last administered on 08/13/18 08:07; Start 08/12/18 at 21:00 Pantoprazole Sodium (Protonix) 40 mg DAILYAC PO Last administered on 08/13/18 08:09; Start 08/13/18 at 07:30 Levothyroxine Sodium (Synthroid) 150 mcg DAILY06 PO Last administered on 05:38; Start 08/13/18 at 06:00 Lidocaine (Lidoderm) 1 patch QHS TD Last administered on 08/12/18 21:35; Start 08/12/18 at 21:00 Non-Formulary Medication (Melatonin ) 10 mg QHS PO ; Start 08/12/18 at 21:00; Stop 08/12/18 at 21:00; Status DC Meloxicam (Mobic) 7.5 mg DAILY PO Last administered on 08/13/18 08:07; Start at 09:00 Metformin HCl (Glucophage) 500 mg BIDWMEALS PO Last administered on 08/13/18 08 :10; Start 08/12/18 at 18:00 Calcium Polycarbophil (Fibercon) 625 mg BID PO Last administered on 08/13/18 08 :10; Start 08/12/18 at 21:00 Mirtazapine (Remeron) 30 mg QHS PO Last administered on 08/12/18 21:37; Start 08/12/18 at 21:00 Primidone (Mysoline) 50 mg TID PO Last administered on 08/13/18 08:07; Start at 21:00 Ropinirole HCl (Requip) 1 mg TID PO Last administered on 08/13/18 08:10; Start 08/12/18 at 21:00 Vitamin E 400 unit DAILY PO Last administered on 08/13/18 08:07; Start 08/13/18 at 09:00 Miscellaneous (Lidoderm Patch Removal) 1 ea DAILY MC ; Start 08/13/18 at 09:00 Albuterol Sulfate (Ventolin Neb Soln) 2.5 mg Q6HRS NEB Last administered on 08/13at 08:24; Start 08/12/18 at 18:00 Budesonide (Pulmicort) 0.5 mg RTBID NEB Last administered on 08/13/18at 08:24; Start 08/12/18 at 20:00 Acetaminophen (Tylenol) 1,000 mg 1X ONCE PO Last administered on 08/12/18at 18: 10; Start 08/12/18 at 18:15; Stop 08/12/18 at 18:16; Status DC Buspirone HCl (Buspar) 15 mg TID PO Last administered on 08/13/18at 08:06; Start 08/12/18 at 21:30 Active Scripts Active Symbicort 80-4.5 Mcg Inhaler (Budesonide/Formoterol Fumarate) 10.2 Gm Hfa.aer.ad 2 Puff IH BID 30 Days Reglan (Metoclopramide Hcl) 10 Mg Tablet 1 Tab PO QID PRN Culturelle (Lactobacillus Rhamnosus Gg) 1 Each Cap.sprink 1 Cap PO BID Clopidogrel (Clopidogrel Bisulfate) 75 Mg Tablet 75 Mg PO DAILYWBKFT Reported Stool Softener (Docusate Sodium) 50 Mg Capsule 50 Mg PO PRN PRN Fiber (Methylcellulose) 500 Mg Tablet 500 Mg PO BID Mysoline (Primidone) 50 Mg Tablet 50 Mg PO TID Ferrous Sulfate 325 Mg Tablet 1 Tab PO DAILY Vitamin E 1,000 Unit Capsule 400 Unit PO DAILY Vitamin D3 (Cholecalciferol (Vitamin D3)) 5,000 Unit Tablet 1 Tab PO DAILY Melatonin 3 Mg Tablet 10 Mg PO QHS Buspirone Hcl 15 Mg Tablet 1 Tab PO TID Meloxicam 7.5 Mg Tablet 7.5 Mg PO DAILY Gabapentin (Gabapentin) 300 Mg Capsule 300 Mg PO TID Oxycontin (Oxycodone HCl) 10 Mg Tab.er.12h 10 Mg PO TID Cartia Xt (Diltiazem Hcl) 180 Mg Cap.er.24h 180 Mg PO DAILY Levothyroxine Sodium 150 Mcg Tablet 1 Tab PO DAILY07 Ropinirole Hcl 1 Mg Tablet 1 Mg PO TID Donepezil Hcl 10 Mg Tablet 1 Tab PO DAILY Lorazepam 1 Mg Tablet 0.5 Mg PO QID Duloxetine Hcl 60 Mg Capsule.dr 60 Mg PO BID Cyclobenzaprine Hcl 10 Mg Tablet 1 Tab PO TID Lidoderm (Lidocaine) 700 Mg Adh..patch 1 Patch TP HS Aspir 81 (Aspirin) 81 Mg Tablet. 1 Tab PO DAILY Carbidopa-Levodopa 25-100 Tab (Carbidopa/Levodopa) 1 Each Tablet 2.5 Tab PO Q3HR W/A Mirtazapine 30 Mg Tab.rapdis 30 Mg PO HS Zolpidem Tartrate 5 Mg Tablet 1 Tab PO QHS Coreg (Carvedilol) 12.5 Mg Tablet 1 Tab PO BID . Metformin Hcl 500 Mg Tablet 1 Tab PO BID Nexium Capsule (Esomeprazole Magnesium) 40 Mg Capsule. 40 Mg PO DAILY Vitals/I & O Vital Sign - Last 24 Hours 08/12/18 08/12/18 08/12/18 08/12/18 14:00 14:00 14:30 15:00 Temp 99.0 99.0 99.0 99.0 Pulse 76 76 76 74 Resp 18 18 23 18 B/P (MAP) 211/77 (121) Pulse Ox 100 100 94 92 O2 Delivery Room Air 08/12/18 08/12/18 08/12/18 08/12/18 15:30 16:30 17:00 18:00 Pulse 76 76 72 68 Resp 29 20 20 19 Pulse Ox 91 96 98 97 08/12/18 08/12/18 08/12/18 08/12/18 18:40 19:35 21:12 21:37 Temp 98.5 98.5 Pulse 64 Resp 16 18 B/P (MAP) 143/81 (101) Pulse Ox 98 O2 Delivery Room Air Room Air Room Air Room Air 08/12/18 08/13/18 08/13/18 08/13/18 23:05 03:05 07:45 08:00 Temp 98.0 98.7 98.0 98.0 98.7 98.0 Pulse 69 86 78 Resp 18 18 18 B/P (MAP) 149/50 (83) 152/54 (86) 192/86 (121) Pulse Ox 92 93 94 O2 Delivery Room Air Room Air Room Air Room Air 08/13/18 08/13/18 08/13/18 08/13/18 08:09 08:09 08:10 08:25 Pulse 78 78 Resp 17 B/P (MAP) 192/86 192/86 O2 Delivery Room Air Room Air 08/13/18 08:26 O2 Delivery Room Air Intake and Output 08/12/18 08/12/18 08/13/18 15:00 23:00 07:00 Intake Total 100 ml 0 ml Balance 100 ml 0 ml PITER BERMUDEZ MD Aug 13, 2018 09:46
[2018-08-13 10:48] VITALS: BP 179/65
--- NOTE | 2018-08-13 13:13 | PDOC2 ---
CARDIAC CONSULT DATE OF CONSULT Date of Consult DATE: 08/13/18 TIME: 12:46 REASON FOR CONSULT Reason for Consult: HTN, CAD REFERRING PHYSICIAN Referring Physician: Maria Del Rosario SOURCE Source: Chart review, Patient HISTORY OF PRESENT ILLNESS HISTORY OF PRESENT ILLNESS Ms Knowles is a 73 yo female admitted for noted stroke symptoms. She was discharged on 08/11/2018 to home and thought she had a stroke but her neuro testing was not conclusive of new stroke and was deemed from hypertensive encephalopathy. she then presented to ED the following day for noted altered metnal state. She was noted byt her daughter with slurred speech, facial droop with fluids running at the corner of her mouth. She was confused and unable to talked and was noted with weakness to left side. She was noted with high BP with SBP at 220 per EMS. Currently she denies any discomfort. Her symptoms as noted above appears to have resolved. PAST MEDICAL HISTORY Cardiovascular: AFIB (?), CAD, HTN, Hyperlipidemia, Valve insufficiency (MR), Other (cardiomyopathy) Pulmonary: COPD, Pneumonia CENTRAL NERVOUS SYSTEM: CVA, Seizure, TIA, Other (parkinsons) GI: Constipation Heme/Onc: Other (Factor V leiden) Musculoskeletal: low back pain, Osteoarthritis Rheumatologic: No pertinent hx Infectious disease: No pertinent hx ENT: Other (cataract; glaucoma) Renal/: UTI Endocrine: Hypothyroidism PAST SURGICAL HISTORY Past Surgical History: Pacemaker, Cataract Removal, (x3), Hernia Repair, Total knee replacement (bilateral), Tonsillectomy, Hysterectomy, Colectomy (gregg), Other (nasal septum repair; PCI/stent 2015; bladder surgery; bilateral eye surgery, capal tunnel release; back surgery) FAMILY HISTORY Family History noncontributory SOCIAL HISTORY Smoke: Quit (remotely>10 yrs) ALCOHOL: none Drugs: None CURRENT MEDICATIONS CURRENT MEDICATIONS Current Medications Medications (Trade) Dose Ordered Sig/Carlene Route PRN Reason Start Time Stop Time Status Last Admin Dose Admin Lorazepam (Ativan) 1 mg 1X ONCE IV 08/12/18 14:15 08/12/18 14:22 DC 08/12/18 14:22 Furosemide (Lasix) 40 mg DAILY PO 08/12/18 17:00 08/13/18 08:10 Aspirin (Ecotrin) 81 mg DAILY PO 08/13/18 09:00 08/13/18 08:09 Carbidopa/Levodopa (Sinemet 25/100) 2.5 tab BID PO 08/12/18 21:00 08/13/18 08:08 Carvedilol (Coreg) 12.5 mg BIDWMEALS PO 08/12/18 17:15 08/13/18 08:10 Clopidogrel Bisulfate (Plavix) 75 mg DAILYWBKFT PO 08/13/18 08:00 08/13/18 08:07 Cyclobenzaprine HCl (Flexeril) 10 mg TID PO 08/12/18 21:00 08/13/18 08:10 Ferrous Sulfate (Feosol) 325 mg DAILY08 PO 08/13/18 08:00 08/13/18 08:07 Gabapentin (Neurontin) 300 mg TID PO 08/12/18 21:00 08/13/18 08:10 Lactobacillus Rhamnosus (Culturelle) 1 cap BID PO 08/12/18 21:00 08/13/18 08:07 Lorazepam (Ativan) 0.5 mg QID PO 08/12/18 17:00 08/13/18 08:06 Metoclopramide HCl (Reglan) 10 mg PRN QID PRN PO NAUSEA 08/12/18 17:00 08/13/18 12:36 Oxycodone HCl (OxyCONTIN) 10 mg TID PO 08/12/18 21:00 08/13/18 08:09 Zolpidem Tartrate (Ambien) 5 mg QHS PO 08/12/18 21:00 08/12/18 21:36 Vitamin D (Vitamin D3) 5,000 unit DAILY PO 08/13/18 09:00 08/13/18 08:09 Diltiazem HCl (Cardizem 24hr Cd) 180 mg DAILY PO 08/13/18 09:00 08/13/18 08:09 Donepezil HCl (Aricept) 10 mg DAILY PO 08/13/18 09:00 08/13/18 08:09 Duloxetine HCl (Cymbalta) 60 mg BID PO 08/12/18 21:00 08/13/18 08:07 Pantoprazole Sodium (Protonix) 40 mg DAILYAC PO 08/13/18 07:30 08/13/18 08:09 Levothyroxine Sodium (Synthroid) 150 mcg DAILY06 PO 08/13/18 06:00 08/13/18 05:38 Lidocaine (Lidoderm) 1 patch QHS TD 08/12/18 21:00 08/12/18 21:35 Meloxicam (Mobic) 7.5 mg DAILY PO 08/13/18 09:00 08/13/18 08:07 Metformin HCl (Glucophage) 500 mg BIDWMEALS PO 08/12/18 18:00 08/13/18 08:10 Calcium Polycarbophil (Fibercon) 625 mg BID PO 08/12/18 21:00 08/13/18 08:10 Mirtazapine (Remeron) 30 mg QHS PO 08/12/18 21:00 08/12/18 21:37 Primidone (Mysoline) 50 mg TID PO 08/12/18 21:00 08/13/18 08:07 Ropinirole HCl (Requip) 1 mg TID PO 08/12/18 21:00 08/13/18 08:10 Vitamin E 400 unit DAILY PO 08/13/18 09:00 08/13/18 08:07 Miscellaneous (Lidoderm Patch Removal) 1 ea DAILY MC 08/13/18 09:00 08/13/18 09:00 Albuterol Sulfate (Ventolin Neb Soln) 2.5 mg Q6HRS NEB 08/12/18 18:00 08/13/18 12:39 Budesonide (Pulmicort) 0.5 mg RTBID NEB 08/12/18 20:00 08/13/18 08:24 Acetaminophen (Tylenol) 1,000 mg 1X ONCE PO 08/12/18 18:15 08/12/18 18:16 DC 08/12/18 18:10 Buspirone HCl (Buspar) 15 mg TID PO 08/12/18 21:30 08/13/18 08:06 ALLERGIES ALLERGIES: Coded Allergies: Sulfa (Sulfonamide Antibiotics) (Verified Allergy, Intermediate, hives, ) dexamethasone (Verified Allergy, Intermediate, 11/01/17) ROS Review of System 14 point ROS evaluated with pertinent positives noted per HPI PHYSICAL EXAM General: Alert, Oriented X3, Cooperative, No acute distress HEENT: Atraumatic, Mucous membr. moist/pink Lungs: Clear to auscultation, Normal air movement Heart: Regular rate (SR), Other (2/6 systolic murmur to LLS border) Abdomen: Soft, No tenderness Extremities: No cyanosis, No edema Skin: No breakdown, No significant lesion Neuro: Normal speech, Sensation intact, Other (arm tremors) Psych/Mental Status: Mood NL MUSCULOSKELETAL: Osteoarthritic changes both hands VITALS VITALS Vital Signs Date Time Temp Pulse Resp B/P (MAP) Pulse Ox O2 Delivery O2 Flow Rate FiO2 08/13/18 12:40 Room Air 08/13/18 12:10 17 08/13/18 10:48 98.0 73 179/65 (103) 96 98.0 LABS Lab: Laboratory Tests Test 08/12/18 14:12 08/12/18 14:13 08/13/18 03:20 Glucose (Fingerstick) 101 mg/dL (70-99) White Blood Count 6.4 x10^3/uL (4.0-11.0) 4.7 x10^3/uL (4.0-11.0) Red Blood Count 4.20 x10^6/uL (3.50-5.40) 3.73 x10^6/uL (3.50-5.40) Hemoglobin 12.6 g/dL (12.0-15.5) 11.4 g/dL (12.0-15.5) Hematocrit 38.5 % (36.0-47.0) 34.5 % (36.0-47.0) Mean Corpuscular Volume 92 fL (79-100) 93 fL (79-100) Mean Corpuscular Hemoglobin 30 pg (25-35) 31 pg (25-35) Mean Corpuscular Hemoglobin Concent 33 g/dL (31-37) 33 g/dL (31-37) Red Cell Distribution Width 15.0 % (11.5-14.5) 15.0 % (11.5-14.5) Platelet Count 371 x10^3/uL (140-400) 345 x10^3/uL (140-400) Neutrophils (%) (Auto) 66 % (31-73) 47 % (31-73) Lymphocytes (%) (Auto) 26 % (24-48) 42 % (24-48) Monocytes (%) (Auto) 7 % (0-9) 9 % (0-9) Eosinophils (%) (Auto) 1 % (0-3) 2 % (0-3) Basophils (%) (Auto) 0 % (0-3) 0 % (0-3) Neutrophils # (Auto) 4.3 x10^3uL (1.8-7.7) 2.2 x10^3uL (1.8-7.7) Lymphocytes # (Auto) 1.7 x10^3/uL (1.0-4.8) 1.9 x10^3/uL (1.0-4.8) Monocytes # (Auto) 0.4 x10^3/uL (0.0-1.1) 0.4 x10^3/uL (0.0-1.1) Eosinophils # (Auto) 0.1 x10^3/uL (0.0-0.7) 0.1 x10^3/uL (0.0-0.7) Basophils # (Auto) 0.0 x10^3/uL (0.0-0.2) 0.0 x10^3/uL (0.0-0.2) Prothrombin Time 12.1 SEC (11.7-14.0) Prothromb Time International Ratio 0.9 (0.8-1.1) Activated Partial Thromboplast Time 24 SEC (24-38) Sodium Level 136 mmol/L (136-145) 139 mmol/L (136-145) Potassium Level 3.9 mmol/L (3.5-5.1) 3.6 mmol/L (3.5-5.1) Chloride Level 97 mmol/L (98-107) 99 mmol/L (98-107) Carbon Dioxide Level 27 mmol/L (21-32) 30 mmol/L (21-32) Anion Gap 12 (6-14) 10 (6-14) Blood Urea Nitrogen 21 mg/dL (7-20) 20 mg/dL (7-20) Creatinine 0.9 mg/dL (0.6-1.0) 1.0 mg/dL (0.6-1.0) Estimated GFR (Cockcroft-Gault) 61.5 54.5 BUN/Creatinine Ratio 23 (6-20) Glucose Level 122 mg/dL (70-99) 102 mg/dL (70-99) Calcium Level 9.7 mg/dL (8.5-10.1) 8.6 mg/dL (8.5-10.1) Total Bilirubin 0.4 mg/dL (0.2-1.0) Aspartate Amino Transf (AST/SGOT) 23 U/L (15-37) Alanine Aminotransferase (ALT/SGPT) 8 U/L (14-59) Alkaline Phosphatase 115 U/L (46-116) Troponin I Quantitative < 0.017 ng/mL (0.000-0.055) Total Protein 7.5 g/dL (6.4-8.2) Albumin 3.6 g/dL (3.4-5.0) Albumin/Globulin Ratio 0.9 (1.0-1.7) ECHOCARDIOGRAM ECHOCARDIOGRAM <Conclusion> Left ventricle systolic function is bellow normal. The Ejection Fraction is 40%. There is global hypokinesis of the left ventricle. The left atrium size is normal. The right atrium size is normal. Doppler and Color Flow revealed trace aortic regurgitation. The aortic valve is normal in structure. The aortic valve is trileaflet. Doppler and Color Flow revealed mild mitral regurgitation. Doppler and Color Flow revealed mild tricuspid regurgitation. The PA pressure was estimated at 32 mmHg. The pulmonic valve is not well visualized. There is no evidence of significant pericardial effusion. DATE: 11/16/16 1557 HEART CATH HEART CATH Findings: Coronaries: The left main is normal. The LAD has mild diffuse plaquing in the 20-40% range. The circumflex is a nondominant vessel that is normal. The RCA is normal but the posterolateral branch is 100% occluded at the ostium. The PDA is normal. Ventriculogram: The left ventricular ejection fraction was estimated to be about 50%. There was no gradient across the aortic valve and the left ventricular end-diastolic pressure was 14 mmHg. After this was evaluated I decided to proceed to try to open the posterolateral branch of the RCA. The patient was fully heparinized and then I engage the ostium of the RCA with a guiding catheter. A guidewire was advanced all the way to the bifurcation of the PDA and the posterolateral branch and we then enter the posterolateral branch were able to cross the occlusion a 2.0 mm balloon was then advanced and a PTCA of the posterolateral branch ostium was then done after which the balloon was removed and a view of the vessel was done. There is still significant residual disease present but there was now flow into the posterolateral branch which appeared to be actually larger than it was initially thought and he gives off a 3 different branches. I then brought a 2.5 mm x 12 mm drug-eluting stent over the guidewire and he was placed in the proximal segment of the posterolateral branch the stent was then deployed and multiple high-pressure inflations were then done. After which the balloon was removed and a view was then done. The previously dilated area is appeared to be well open now there was now very good flow all the way to the distal portion of the posterolateral branch there was no significant residual disease present there did appear to be some thrombus distally therefore the patient was started on a bolus and a drip of Integrilin in addition to the heparin. The patient was now free of chest pains so I decided to terminate the procedure at this time. The sheaths were pulled and Angio-Seal collagen plugs were deployed in place. No apparent bleeding was present therefore a dressing was applied to the groin and the patient was returned to her room in satisfactory condition after tolerating the procedure rather well. I would like to continue with at least 18 hours of Integrilin and 24 hours of heparin. The patient was given a loading dose of Plavix in the laborer road. DATE: 05/08/15 8849 ASSESSMENT/PLAN ASSESSMENT/PLAN 1. Accelerated HTN: still labile 2. Possible CVA vs hypertensive encephalopathy 3. Right carotid artery stenosis: moderate per doppler 4. Hx of CV/and parkinsons/dementia 5. CAD; past stent to PLB, clinically stable 6. HLP 7. PAFIB: currently SR 8. PPM in situ: [facility] placed 05/2016 for symptomatic bradycardia with 4 sec pause Recommendations 1. Will interrogate device for AFIB burden and any further arrhythmias. Will noted MRI compatibility 2. TTE 3. 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 4. Continue with coreg but will increase and will note EF for further cardizem. If BP remains elevated despite changes of the latter and EF remains low then ACEi. 5. Hydralazine NITA CASTRO TECHNICIAN HELPER INSTRUMENT Aug 13, 2018 13:13
[2018-08-13] MEDS ORDERED: hydrALAZINE 20 MG/ML VIAL. IVP PRN (13:30)
[2018-08-13 15:00] VITALS: BP 120/63
--- NOTE | 2018-08-13 16:14 | CARD ---
MR#: [id number] Date of Study: 08/13/2018 Ordering Physician: NITA CANNON, Referring Physician: EWA CHAPPELL Tech: Codi Vallecillo APPROVED REPORT EXAM: Two-dimensional and M-mode echocardiogram with Doppler and color Doppler. Other Information Quality : FairHR: 67bpm INDICATION CAD RISK FACTORS Hypertension 2D DIMENSIONS RVDd3.8 (2.9-3.5cm)Left Atrium(2D)4.3 (1.6-4.0cm) IVSd1.1 (0.7-1.1cm)Aortic Root(2D)2.9 (2.0-3.7cm) LVDd5.2 (3.9-5.9cm)LVOT Diameter2.4 (1.8-2.4cm) PWd1.1 (0.7-1.1cm)LVDs3.3 (2.5-4.0cm) FS (%) 35.3 %SV82.3 ml LVEF(%)64.4 (>50%) Aortic Valve AoV Peak Carson.124.5cm/sAoV VTI23.0cm AO Peak GR.6.2mmHgLVOT Peak Carson.92.6cm/s LVOT VTI 16.36cmAO Mean GR.4mmHg MORGAN (VMAX)2.67ds6GSI (VTI)3.23cm2 Mitral Valve MV E Yatedvzw08.4cm/sMV DECEL [id number] MV A Blzywuus24.2cm/sMV [id number] E/A Ratio0.5MVA (PHT)2.11cm2 TDI E/Lateral E'7.1E/Medial E'9.0 Pulmonary Valve PV Peak Pfxnlhyc195.1cm/sPV Peak Grad.9mmHg Tricuspid Valve TR P. Dydefpcq011hq/sTR Peak Gr.28mmHg Pulmonary Vein S1 Foenadao43.6cm/sD2 Fvhjduuu20.0cm/s PVa [id number] LEFT VENTRICLE The left ventricle is normal size. There is borderline concentric left ventricular hypertrophy. The l eft ventricular systolic function is normal and the ejection fraction is within normal range. The Eje ction Fraction is >55%. There is normal LV segmental wall motion. Transmitral Doppler flow pattern is Grade I-abnormal relaxation pattern. RIGHT VENTRICLE The right ventricle is normal size. There is normal right ventricular wall thickness. The right ventr icular systolic function is normal. There is a pacemaker in the RV/RA. ATRIA The left atrium size is normal. The right atrium size is normal. The interatrial septum is intact wit h no evidence for an atrial septal defect or patent foramen ovale as noted on 2-D or Doppler imaging. AORTIC VALVE The aortic valve is normal in structure and function. Doppler and Color Flow revealed trace aortic re gurgitation. There is no significant aortic valvular stenosis. MITRAL VALVE The mitral valve is normal in structure and function. There is no evidence of mitral valve prolapse. There is no mitral valve stenosis. Doppler and Color-flow revealed trace mitral regurgitation. TRICUSPID VALVE The tricuspid valve is normal in structure and function. Doppler and Color Flow revealed trace to mil d tricuspid regurgitation with an estimated PAP of 36 mmHg. There is no tricuspid valve stenosis. PULMONIC VALVE The pulmonary valve is normal in structure and function. Doppler and Color Flow revealed no pulmonic valvular regurgitation. There is no pulmonic valvular stenosis. GREAT VESSELS The aortic root is normal in size. The IVC is normal in size and collapses >50% with inspiration. PERICARDIAL EFFUSION There is no evidence of significant pericardial effusion. Critical Notification Critical Value: No <Conclusion> The left ventricular systolic function is normal and the ejection fraction is within normal range. The Ejection Fraction is >55%. There is normal LV segmental wall motion. There is a pacemaker in the RV/RA. Doppler and Color Flow revealed trace to mild tricuspid regurgitation with an estimated PAP of 36 mmH g. Signed by : Babar Ayala, Electronically Approved : 08/13/2018 16:14:19
[2018-08-13] MEDS ORDERED: CARVEDILOL 12.5 MG TABLET. PO SCH (17:00)
--- NOTE | 2018-08-13 17:59 | PDOC2 ---
NEUROLOGY CONSULT Date of Admission Date of Admission DATE: 08/13/18 TIME: 17:39 Reason for Consult Reason for Consult: IMPRESSION: Metabolic encephalopathy. Dysarthria, chronic likely. Near hypertensive urgency, SBP 192 mmHg. Confusion. Left side weakness, chronic. Seizure, Hx. Anisocoria, chronic. PD. AFib. CAD, s/p stent placement. HTN. HLD. Cognitive impairment. Pacemaker. RECOMMENDATIONS/PLAN: Continue Plavix 75 mg daily. Continue ASA 81 mg daily. Continue Sinemet at current dosing. Repeat HCT in a.m. 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 Lab: see orders. Lipid panel: WNL. History of Present Illness The patient is a 73-year-old right-handed female with history of old stroke with chronic left side weakness. She was noticed MS changes, confusion, facial drooping and increased left-sided weakness on 08/12/18. Her SBP was 192 mmHg checked by her daughter, so she was brought to the ER of [facility]. She had a stroke in September 2015 for which she was transferred to for intervention after receiving alteplase here. Residua was left hemiparesis and numbness, but she says these worsen on 08/12/18 but improved afterwards and facial drooping was not evident. She denies any headache, diplopia, dysphagia, dysarthria, history of head injury. She did have seizures at the time of her 2016 stroke. She follows with Dr. Rey and Dr. Stovall regarding her Parkinson's. Past Medical History Cardiovascular: AFIB, CAD, HTN, Other (mitral regurgitation) Pulmonary: COPD, Pneumonia, Other (sleep apnea) CENTRAL NERVOUS SYSTEM: CVA, Seizure, TIA, Other (Parkinson's) GI: Constipation, GERD, Irritable bowel disease, Peptic Ulcer disease, Other ( gastroparesis, diarrhea) Heme/Onc: Other (factor V Leiden deficiency) Psych: Anxiety, Depression Musculoskeletal: low back pain ENT: Other (glaucoma) Renal/: Urinary Incontinence Endocrine: Diabetes, Hypothyroidism Past Surgical History Pacemaker, Cataract Removal, Hernia Repair (umbilical), Tonsillectomy (/adenoids ), Hysterectomy, Colon Resection, Other (cardiac catheterization, coronary stent , spinal) Family History Cancer Social History , no alcohol or tobacco Allergies Coded Allergies: Sulfa (Sulfonamide Antibiotics) (Verified Allergy, Intermediate, hives, ) dexamethasone (Verified Allergy, Intermediate, 11/01/17) ROS Negative for fever, chills, weight loss, shortness of breath, chest pain, indigestion, hematochezia, melena, and dysuria. Full 14-point review of systems is negative. MEDICATIONS: Refer to [facility] PHYSICAL EXAMINATION: General appearance is in no acute distress. HEENT: Normocephalic and nontraumatic. Eyes, nose, ears, and throat are unremarkable. Neck is supple. No lymphadenopathy. No bruits are heard over the carotid artery. No crepitus. Cardiovascular: S1, S2, regular rate and rhythm. Pulmonary: Clear to auscultation bilaterally. Abdomen: Bowel sounds are positive. Abdomen is soft, nontender, and nondistended. Extremities: No rash, lesions, or edema. No restriction of range of motion NEUROLOGICAL EXAMINATION: Awake. Oriented to time, place and person. Right pupil 2-3 mm, left side 1.5 mm EOMI. CN: no focal findings. Muscle tone: within normal. Muscle strength: 4+ DTR: 2 Plantar reflex: Neutral response bilaterally Gait: not examined in bed. Sensory exam: no abnormal findings. No cerebellar signs elicited. F-T-N test accurate. Current Medications Current Medications Current Medications Lorazepam (Ativan) 1 mg 1X ONCE IV Last administered on 08/12/18 14:22; Start 08/12/18 at 14:15; Stop 08/12/18 at 14:22; Status DC Furosemide (Lasix) 40 mg DAILY PO Last administered on 08/13/18 08:10; Start at 17:00 Aspirin (Ecotrin) 81 mg DAILY PO Last administered on 08/13/18 08:09; Start 08/13/18 at 09:00 Carbidopa/Levodopa (Sinemet 25/100) 2.5 tab BID PO Last administered on 08:08; Start 08/12/18 at 21:00 Carvedilol (Coreg) 12.5 mg BIDWMEALS PO Last administered on 08/13/18 08:10; Start 08/12/18 at 17:15; Stop 08/13/18 at 13:21; Status DC Clopidogrel Bisulfate (Plavix) 75 mg DAILYWBKFT PO Last administered on 08:07; Start 08/13/18 at 08:00 Cyclobenzaprine HCl (Flexeril) 10 mg TID PO Last administered on 08/13/18 15:39 ; Start 08/12/18 at 21:00 Ferrous Sulfate (Feosol) 325 mg DAILY08 PO Last administered on 08/13/18 08:07 ; Start 08/13/18 at 08:00 Gabapentin (Neurontin) 300 mg TID PO Last administered on 08/13/18 15:42; Start 08/12/18 at 21:00 Lactobacillus Rhamnosus (Culturelle) 1 cap BID PO Last administered on 08:07; Start 08/12/18 at 21:00 Lorazepam (Ativan) 0.5 mg QID PO Last administered on 08/13/18 15:39; Start 08/12/18 at 17:00 Metoclopramide HCl (Reglan) 10 mg PRN QID PRN PO NAUSEA Last administered on 12:36; Start 08/12/18 at 17:00; Stop 08/13/18 at 15:37; Status DC Oxycodone HCl (OxyCONTIN) 10 mg TID PO Last administered on 08/13/18 15:42; Start 08/12/18 at 21:00 Zolpidem Tartrate (Ambien) 5 mg QHS PO Last administered on 08/12/18 21:36; Start 08/12/18 at 21:00 Non-Formulary Medication (Budesonide/ Formoterol Fumarate (Symbicort 80-4.5 Mcg Inhaler)) 2 puff BID IH ; Start 08/12/18 at 21:00; Status UNV Buspirone HCl (Buspar) 153 mg TID PO ; Start 08/12/18 at 17:15; Stop 08/12/18 at 21:21; Status DC Vitamin D (Vitamin D3) 5,000 unit DAILY PO Last administered on 08/13/18 08:09 ; Start 08/13/18 at 09:00 Diltiazem HCl (Cardizem 24hr Cd) 180 mg DAILY PO Last administered on 08/13/18 08:09; Start 08/13/18 at 09:00 Docusate Sodium (Colace) 100 mg PRN DAILY PRN PO STOOL SOFTNER; Start 08/12/18 at 18:00 Donepezil HCl (Aricept) 10 mg DAILY PO Last administered on 08/13/18 08:09; Start 08/13/18 at 09:00 Duloxetine HCl (Cymbalta) 60 mg BID PO Last administered on 08/13/18 08:07; Start 08/12/18 at 21:00 Pantoprazole Sodium (Protonix) 40 mg DAILYAC PO Last administered on 08/13/18 08:09; Start 08/13/18 at 07:30 Levothyroxine Sodium (Synthroid) 150 mcg DAILY06 PO Last administered on 05:38; Start 08/13/18 at 06:00 Lidocaine (Lidoderm) 1 patch QHS TD Last administered on 08/12/18 21:35; Start 08/12/18 at 21:00 Non-Formulary Medication (Melatonin ) 10 mg QHS PO ; Start 08/12/18 at 21:00; Stop 08/12/18 at 21:00; Status DC Meloxicam (Mobic) 7.5 mg DAILY PO Last administered on 08/13/18 08:07; Start at 09:00 Metformin HCl (Glucophage) 500 mg BIDWMEALS PO Last administered on 08/13/18 08 :10; Start 08/12/18 at 18:00 Calcium Polycarbophil (Fibercon) 625 mg BID PO Last administered on 08/13/18 08 :10; Start 08/12/18 at 21:00 Mirtazapine (Remeron) 30 mg QHS PO Last administered on 08/12/18 21:37; Start 08/12/18 at 21:00 Primidone (Mysoline) 50 mg TID PO Last administered on 08/13/18 15:39; Start at 21:00 Ropinirole HCl (Requip) 1 mg TID PO Last administered on 08/13/18 15:40; Start 08/12/18 at 21:00 Vitamin E 400 unit DAILY PO Last administered on 08/13/18 08:07; Start 08/13/18 at 09:00 Miscellaneous (Lidoderm Patch Removal) 1 ea DAILY MC Last administered on 09:00; Start 08/13/18 at 09:00 Albuterol Sulfate (Ventolin Neb Soln) 2.5 mg Q6HRS NEB Last administered on 08/13at 12:39; Start 08/12/18 at 18:00 Budesonide (Pulmicort) 0.5 mg RTBID NEB Last administered on 08/13/18at 08:24; Start 08/12/18 at 20:00 Acetaminophen (Tylenol) 1,000 mg 1X ONCE PO Last administered on 08/12/18at 18: 10; Start 08/12/18 at 18:15; Stop 08/12/18 at 18:16; Status DC Buspirone HCl (Buspar) 15 mg TID PO Last administered on 08/13/18at 15:39; Start 08/12/18 at 21:30 Carvedilol (Coreg) 25 mg BIDWMEALS PO ; Start 08/13/18 at 17:00 Hydralazine HCl (Apresoline Inj) 10 mg PRN Q4HRS PRN IVP ELEVATED BP, SEE COMMENTS; Start 08/13/18 at 13:30 Metoclopramide HCl (Reglan) 10 mg QIDACHS PO ; Start 08/13/18 at 16:30 Active Scripts Active Symbicort 80-4.5 Mcg Inhaler (Budesonide/Formoterol Fumarate) 10.2 Gm Hfa.aer.ad 2 Puff IH BID 30 Days Reglan (Metoclopramide Hcl) 10 Mg Tablet 1 Tab PO QID PRN Culturelle (Lactobacillus Rhamnosus Gg) 1 Each Cap.sprink 1 Cap PO BID Clopidogrel (Clopidogrel Bisulfate) 75 Mg Tablet 75 Mg PO DAILYWBKFT Reported Stool Softener (Docusate Sodium) 50 Mg Capsule 50 Mg PO PRN PRN Fiber (Methylcellulose) 500 Mg Tablet 500 Mg PO BID Mysoline (Primidone) 50 Mg Tablet 50 Mg PO TID Ferrous Sulfate 325 Mg Tablet 1 Tab PO DAILY Vitamin E 1,000 Unit Capsule 400 Unit PO DAILY Vitamin D3 (Cholecalciferol (Vitamin D3)) 5,000 Unit Tablet 1 Tab PO DAILY Melatonin 3 Mg Tablet 10 Mg PO QHS Buspirone Hcl 15 Mg Tablet 1 Tab PO TID Meloxicam 7.5 Mg Tablet 7.5 Mg PO DAILY Gabapentin (Gabapentin) 300 Mg Capsule 300 Mg PO TID Oxycontin (Oxycodone HCl) 10 Mg Tab.er.12h 10 Mg PO TID Cartia Xt (Diltiazem Hcl) 180 Mg Cap.er.24h 180 Mg PO DAILY Levothyroxine Sodium 150 Mcg Tablet 1 Tab PO DAILY07 Ropinirole Hcl 1 Mg Tablet 1 Mg PO TID Donepezil Hcl 10 Mg Tablet 1 Tab PO DAILY Lorazepam 1 Mg Tablet 0.5 Mg PO QID Duloxetine Hcl 60 Mg Capsule.dr 60 Mg PO BID Cyclobenzaprine Hcl 10 Mg Tablet 1 Tab PO TID Lidoderm (Lidocaine) 700 Mg Adh..patch 1 Patch TP HS Aspir 81 (Aspirin) 81 Mg Tablet.dr 1 Tab PO DAILY Carbidopa-Levodopa 25-100 Tab (Carbidopa/Levodopa) 1 Each Tablet 2.5 Tab PO Q3HR W/A Mirtazapine 30 Mg Tab.rapdis 30 Mg PO HS Zolpidem Tartrate 5 Mg Tablet 1 Tab PO QHS Coreg (Carvedilol) 12.5 Mg Tablet 1 Tab PO BID . Metformin Hcl 500 Mg Tablet 1 Tab PO BID Nexium Capsule (Esomeprazole Magnesium) 40 Mg Capsule.dr 40 Mg PO DAILY Allergies Allergies: Allergies Coded Allergies Type Severity Reaction Last Updated Verified Sulfa (Sulfonamide Antibiotics) Allergy Intermediate hives 11/01/17 Yes dexamethasone Allergy Intermediate 11/01/17 Yes ROS Review of System The patient denies any associated fevers, chills, headache, ear pain, rhinorrhea , sore throat, stiff neck, productive cough, chest pain, shortness of breath, back or flank pain, abdominal pain, nausea, vomiting, diarrhea, constipation, dysuria, rash, numbness, weakness, tingling, incontinence, difficulty ambulating, or diaphoresis. Physical Exam Physical Exam General: Well developed, well nourished, no acute distress, well appearing HEENT: Pupils equally round and reactive to light, EOMI, no discharge, normal conjunctiva Neck: Supple, no nuchal rigidity, no JVD, trachea midline, no tenderness Cardiac: RRR, no murmurs, no gallops, no rubs Chest/Lungs: CTAB, no wheeze, no rhonchi, no crackles Abdomen: soft, non-distended, no guarding, no peritoneal signs, non-tender Back: No tenderness Extremities: no edema, pulses intact, non-tender,capillary refill <3 sec bilateral upper and lower extremities, Neuro: Alert and oriented x 4, no focal deficits, normal speech Vitals Vitals: Vital Signs Date Time Temp Pulse Resp B/P (MAP) Pulse Ox O2 Delivery O2 Flow Rate FiO2 08/13/18 15:42 17 Room Air 08/13/18 15:00 97.9 70 120/63 (82) 98 97.9 Labs Labs Laboratory Tests Test 08/12/18 14:12 08/12/18 14:13 08/13/18 03:20 Glucose (Fingerstick) 101 mg/dL (70-99) White Blood Count 6.4 x10^3/uL (4.0-11.0) 4.7 x10^3/uL (4.0-11.0) Red Blood Count 4.20 x10^6/uL (3.50-5.40) 3.73 x10^6/uL (3.50-5.40) Hemoglobin 12.6 g/dL (12.0-15.5) 11.4 g/dL (12.0-15.5) Hematocrit 38.5 % (36.0-47.0) 34.5 % (36.0-47.0) Mean Corpuscular Volume 92 fL (79-100) 93 fL (79-100) Mean Corpuscular Hemoglobin 30 pg (25-35) 31 pg (25-35) Mean Corpuscular Hemoglobin Concent 33 g/dL (31-37) 33 g/dL (31-37) Red Cell Distribution Width 15.0 % (11.5-14.5) 15.0 % (11.5-14.5) Platelet Count 371 x10^3/uL (140-400) 345 x10^3/uL (140-400) Neutrophils (%) (Auto) 66 % (31-73) 47 % (31-73) Lymphocytes (%) (Auto) 26 % (24-48) 42 % (24-48) Monocytes (%) (Auto) 7 % (0-9) 9 % (0-9) Eosinophils (%) (Auto) 1 % (0-3) 2 % (0-3) Basophils (%) (Auto) 0 % (0-3) 0 % (0-3) Neutrophils # (Auto) 4.3 x10^3uL (1.8-7.7) 2.2 x10^3uL (1.8-7.7) Lymphocytes # (Auto) 1.7 x10^3/uL (1.0-4.8) 1.9 x10^3/uL (1.0-4.8) Monocytes # (Auto) 0.4 x10^3/uL (0.0-1.1) 0.4 x10^3/uL (0.0-1.1) Eosinophils # (Auto) 0.1 x10^3/uL (0.0-0.7) 0.1 x10^3/uL (0.0-0.7) Basophils # (Auto) 0.0 x10^3/uL (0.0-0.2) 0.0 x10^3/uL (0.0-0.2) Prothrombin Time 12.1 SEC (11.7-14.0) Prothromb Time International Ratio 0.9 (0.8-1.1) Activated Partial Thromboplast Time 24 SEC (24-38) Sodium Level 136 mmol/L (136-145) 139 mmol/L (136-145) Potassium Level 3.9 mmol/L (3.5-5.1) 3.6 mmol/L (3.5-5.1) Chloride Level 97 mmol/L (98-107) 99 mmol/L (98-107) Carbon Dioxide Level 27 mmol/L (21-32) 30 mmol/L (21-32) Anion Gap 12 (6-14) 10 (6-14) Blood Urea Nitrogen 21 mg/dL (7-20) 20 mg/dL (7-20) Creatinine 0.9 mg/dL (0.6-1.0) 1.0 mg/dL (0.6-1.0) Estimated GFR (Cockcroft-Gault) 61.5 54.5 BUN/Creatinine Ratio 23 (6-20) Glucose Level 122 mg/dL (70-99) 102 mg/dL (70-99) Calcium Level 9.7 mg/dL (8.5-10.1) 8.6 mg/dL (8.5-10.1) Total Bilirubin 0.4 mg/dL (0.2-1.0) Aspartate Amino Transf (AST/SGOT) 23 U/L (15-37) Alanine Aminotransferase (ALT/SGPT) 8 U/L (14-59) Alkaline Phosphatase 115 U/L (46-116) Troponin I Quantitative < 0.017 ng/mL (0.000-0.055) Total Protein 7.5 g/dL (6.4-8.2) Albumin 3.6 g/dL (3.4-5.0) Albumin/Globulin Ratio 0.9 (1.0-1.7) Laboratory Tests Test 08/13/18 03:20 White Blood Count 4.7 x10^3/uL (4.0-11.0) Red Blood Count 3.73 x10^6/uL (3.50-5.40) Hemoglobin 11.4 g/dL (12.0-15.5) Hematocrit 34.5 % (36.0-47.0) Mean Corpuscular Volume 93 fL (79-100) Mean Corpuscular Hemoglobin 31 pg (25-35) Mean Corpuscular Hemoglobin Concent 33 g/dL (31-37) Red Cell Distribution Width 15.0 % (11.5-14.5) Platelet Count 345 x10^3/uL (140-400) Neutrophils (%) (Auto) 47 % (31-73) Lymphocytes (%) (Auto) 42 % (24-48) Monocytes (%) (Auto) 9 % (0-9) Eosinophils (%) (Auto) 2 % (0-3) Basophils (%) (Auto) 0 % (0-3) Neutrophils # (Auto) 2.2 x10^3uL (1.8-7.7) Lymphocytes # (Auto) 1.9 x10^3/uL (1.0-4.8) Monocytes # (Auto) 0.4 x10^3/uL (0.0-1.1) Eosinophils # (Auto) 0.1 x10^3/uL (0.0-0.7) Basophils # (Auto) 0.0 x10^3/uL (0.0-0.2) Sodium Level 139 mmol/L (136-145) Potassium Level 3.6 mmol/L (3.5-5.1) Chloride Level 99 mmol/L (98-107) Carbon Dioxide Level 30 mmol/L (21-32) Anion Gap 10 (6-14) Blood Urea Nitrogen 20 mg/dL (7-20) Creatinine 1.0 mg/dL (0.6-1.0) Estimated GFR (Cockcroft-Gault) 54.5 Glucose Level 102 mg/dL (70-99) Calcium Level 8.6 mg/dL (8.5-10.1) KELSEY GUTIERRES MD Aug 13, 2018 17:59
[2018-08-13] MEDS: METOCLOPRAMIDE 10 MG TABLET. PO SCH ×2 (18:16→21:50)
[2018-08-13 19:20] VITALS: BP 154/65
[2018-08-13] MEDS: MIRTAZAPINE 15 MG TABLET PO SCH (21:49)
[2018-08-13] MEDS: ZOLPIDEM 5 MG TABLET. PO SCH (21:50)
[2018-08-13] MEDS: LIDOCAINE (700MG/PATCH) PATCH. TD SCH (21:51)
[2018-08-13 23:12] VITALS: BP 125/38
[2018-08-14 03:08] VITALS: BP 115/52
[2018-08-14] MEDS: LEVOTHYROXINE 150 MCG TABLET PO SCH (06:05)
[2018-08-14] MEDS: METOCLOPRAMIDE 10 MG TABLET. PO SCH ×4 (06:06→20:48)
[2018-08-14] MEDS: PANTOPRAZOLE 40 MG TABLET.DR. PO SCH (06:06)
[2018-08-14] MEDS: ALBUTEROL SULFATE 2.5 MG/3 ML NEBU. NEB SCH ×5 (06:24→23:17)
[2018-08-14] MEDS: BUDESONIDE 0.5 MG/2 ML NEBU. NEB SCH ×2 (06:24→19:30)
[2018-08-14 07:00] VITALS: BP 129/57
[2018-08-14 07:13] LABS: CALCIUM 8.8 mg/dL (8.5-10.1); CREATININE 1.3 mg/dL (0.6-1.0); GFR 40.3; POTASSIUM 3.6 mmol/L (3.5-5.1)
[2018-08-14 07:37] LABS: BASO % 0 % (0-3); EOS # 0.1 x10^3/uL (0.0-0.7); EOS % 2 % (0-3); HEMATOCRIT 37.3 % (36.0-47.0); HEMOGLOBIN 12.5 g/dL (12.0-15.5); LYMPH % 39 % (24-48); MEAN CORPUSCULAR HEMOGLOBIN 31 pg (25-35); MEAN CORPUSCULAR HGB CONC 34 g/dL (31-37); MEAN CORPUSCULAR VOLUME 93 fL (79-100); MONO # 0.5 x10^3/uL (0.0-1.1); MONO % 9 % (0-9); NEUT # 2.6 x10^3uL (1.8-7.7); NEUT % 50 % (31-73); PLATELET COUNT 342 x10^3/uL (140-400); RED BLOOD COUNT 4.01 x10^6/uL (3.50-5.40); RED CELL DISTRIBUTION WIDTH 15.1 % (11.5-14.5); WHITE BLOOD COUNT 5.3 x10^3/uL (4.0-11.0)
--- NOTE | 2018-08-14 08:23 | RAD ---
PQRS Compliance Statement: One or more of the following individualized dose reduction techniques were utilized for this examination: 1. Automated exposure control 2. Adjustment of the mA and/or kV according to patient size 3. Use of iterative reconstruction technique CT head without contrast 08/14/2018 7:38 AM INDICATION: Slurred speech and left-sided weakness for 2 days COMPARISON: CT head August 09, 2018, August 12, 2018 TECHNIQUE: Multiple axial CT images of the head were obtained from skull base through the vertex without intravenous contrast. FINDINGS: Head: Ventricles, sulci and basal cisterns are within normal limits. Low-attenuation in the periventricular white matter is suggestive of chronic small vessel ischemic changes. There is no hydrocephalus. Brothers-white matter differentiation is normal. There is no acute intracranial hemorrhage. There is no mass, mass effect or midline shift. Posterior fossa is normal in appearance. Visualized portions of the orbits are normal with exception of bilateral lens replacement. Paranasal sinuses are well aerated. Mastoid air cells are well aerated. Scalp and calvaria are normal. IMPRESSION: No acute intracranial hemorrhage. Low-attenuation in the periventricular white matter is suggestive of chronic small vessel ischemic changes. Findings are not significantly changed since prior examination. Electronically signed by: Otilia Echevarria MD (08/14/2018 8:21 AM) [id number]
--- NOTE | 2018-08-14 08:30 | RAD ---
PQRS Compliance Statement: One or more of the following individualized dose reduction techniques were utilized for this examination: 1. Automated exposure control 2. Adjustment of the mA and/or kV according to patient size 3. Use of iterative reconstruction technique CT chest without contrast August 14, 2018 INDICATION: Pneumonia. COMPARISON: CT chest July 25, 2018 TECHNIQUE: Multiple axial CT images of the chest were obtained with intravenous contrast. Coronal and sagittal reformats are provided. FINDINGS: Right chest wall cardiac device is identified with leads terminating in the right atrium and right ventricle. Heart size is within normal limits. Coronary artery vascular calcifications are present. Thoracic esophagus is normal in appearance. There is suggestion of a left hilar lymph node measuring 9 mm by short axis. Evaluation is limited by lack of intravenous contrast. No pathologically enlarged axillary or mediastinal lymph nodes are identified. There is a 5 mm calcified granuloma in the superior segment right lower lobe. Mild bronchial wall thickening may be seen with bronchitis. There is improved aeration of the superior segment left lower lobe with persistent patchy interstitial changes which may represent subsegmental atelectasis, scarring or resolving infiltrate. There are no pleural effusions. No pulmonary vascular congestion or pneumothorax. Visualized portions of the liver, spleen, bilateral adrenal glands, pancreas and gallbladder are normal. No suspicious osseous abnormality is identified. IMPRESSION: 1. There is improved aeration of the superior segment left lower lobe with persistent patchy interstitial changes which may reflect subsegmental atelectasis versus scarring versus continued resolution of infiltrate. A 3 month follow-up chest CT may be of benefit to ensure complete resolution. 2. Borderline left hilar lymph node may be reactive. Electronically signed by: Otilia Echevarria MD (08/14/2018 8:27 AM) [id number]
[2018-08-14] MEDS: PATCH REMOVAL. MC SCH (09:00)
[2018-08-14] MEDS: FUROSEMIDE 40 MG TABLET. PO SCH (09:17)
[2018-08-14] MEDS: DONEPEZIL HCL 10 MG TABLET. PO SCH (09:17)
[2018-08-14] MEDS: ASPIRIN ENTERIC COATED 81 MG TABLET.DR. PO SCH (09:17)
[2018-08-14] MEDS: LACTOBACILLUS RHAMNOSUS GG 1 CAPSULE. PO SCH ×2 (09:17→20:48)
[2018-08-14] MEDS: GABAPENTIN 300 MG CAPSULE. PO SCH ×3 (09:17→20:48)
[2018-08-14] MEDS: busPIRone 5 MG TABLET. PO SCH ×3 (09:18→20:47)
[2018-08-14] MEDS: CARBIDOPA/LEVODOPA 25/100MG TABLET PO SCH ×2 (09:18→20:47)
[2018-08-14] MEDS: DULoxetine HCL 30 MG CAPSULE.DR PO SCH ×2 (09:18→20:48)
[2018-08-14] MEDS: VITAMIN E 200 UNIT CAPSULE. PO SCH (09:18)
[2018-08-14] MEDS: CALCIUM POLYCARBOPHIL 625 MG TABLET PO SCH ×2 (09:20→20:48)
[2018-08-14] MEDS: rOPINIRole 1 MG TABLET. PO SCH ×3 (09:20→20:47)
[2018-08-14] MEDS: CLOPIDOGREL BISULFATE 75 MG TABLET PO SCH (09:20)
[2018-08-14] MEDS: CHOLECALCIFEROL (VITAMIN D3) 5,000 UNIT CAPSULE PO SCH (09:20)
[2018-08-14] MEDS: FERROUS SULFATE 325 MG TABLET. PO SCH (09:22)
[2018-08-14] MEDS: MELOXICAM 7.5 MG TABLET PO SCH (09:22)
[2018-08-14] MEDS: metFORMIN 500 MG TABLET PO SCH ×2 (09:22→17:17)
[2018-08-14] MEDS: oxyCODONE ER 10 MG TAB.ER.12H PO SCH ×3 (09:22→20:48)
[2018-08-14] MEDS: PRIMIDONE 50 MG TABLET PO SCH ×3 (09:22→20:48)
[2018-08-14] MEDS: LORazepam 1 MG TABLET PO SCH ×4 (09:23→20:49)
[2018-08-14] MEDS: CYCLOBENZAPRINE 10 MG TABLET. PO SCH ×3 (09:23→20:48)
[2018-08-14 11:00] VITALS: BP 145/81
--- NOTE | 2018-08-14 11:00 | PDOC ---
PROGRESS NOTES History of Present Illness History of Present Illness ASSESSMENT AND PLAN: Stroke symptoms secondary to malignant hypertension. POSSIBLE TIA Hypertensive encephalopathy, acute morbid obesity There is improved aeration of the superior segment left lower lobe with persistent patchy interstitial changes which may reflect subsegmental atelectasis versus scarring versus continued resolution of infiltrate. A 3 month follow-up chest CT may be of benefit to ensure complete resolution. cognitive decline admitted. home meds, add Lasix 40 IV every day. Consult Neurology consult Cardiology. Full code. DVT prophylaxis, PT, OT, frequent labs, cardiac monitoring. 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 43 min pt exam, chart review, > 50% of time spent with exam, chart review, pt care coordination Vitals Vitals Vital Signs Date Time Temp Pulse Resp B/P (MAP) Pulse Ox O2 Delivery O2 Flow Rate FiO2 08/14/18 09:22 17 Room Air 08/14/18 09:19 71 129/57 08/14/18 07:00 97.9 98 97.9 Physical Exam Physical Exam LUNGS: Clear to auscultation. ABDOMEN: Soft, positive bowel sounds. EXTREMITIES: Trace edema. SKIN: No rashes. ENDOCRINE: No thyromegaly. LYMPHATICS: No cervical nodes. HEMATOPOIETIC: No bruising. PSYCHIATRIC: She is depressed. NEUROLOGICAL: left-sided weakness and a slight facial droop General: Alert, Cooperative, No acute distress, Other (confused, encephalopathic) Heart: Regular rate (SR), Other (2/6 systolic murmur to LLS border) Lungs: Clear Abdomen: Soft, No tenderness Extremities: No cyanosis, No edema Skin: No breakdown, No significant lesion Labs LABS One or more of the following individualized dose reduction techniques were utilized for this examination: 1. Automated exposure control 2. Adjustment of the mA and/or kV according to patient size 3. Use of iterative reconstruction technique CT head without contrast 08/14/2018 7:38 AM INDICATION: Slurred speech and left-sided weakness for 2 days COMPARISON: CT head August 09, 2018, August 12, 2018 TECHNIQUE: Multiple axial CT images of the head were obtained from skull base through the vertex without intravenous contrast. FINDINGS: Head: Ventricles, sulci and basal cisterns are within normal limits. Low-attenuation in the periventricular white matter is suggestive of chronic small vessel ischemic changes. There is no hydrocephalus. Brothers-white matter differentiation is normal. There is no acute intracranial hemorrhage. There is no mass, mass effect or midline shift. Posterior fossa is normal in appearance. Visualized portions of the orbits are normal with exception of bilateral lens replacement. Paranasal sinuses are well aerated. Mastoid air cells are well aerated. Scalp and calvaria are normal. IMPRESSION: No acute intracranial hemorrhage. Low-attenuation in the periventricular white matter is suggestive of chronic small vessel ischemic changes. Findings are not significantly changed since prior examination. Electronically signed by: Leatha Echevarria MD (08/14/2018 8:21 AM) [id number] DICTATED and SIGNED BY: LEATHA ECHEVARRIA MD DATE: 08/14/18 0821 One or more of the following individualized dose reduction techniques were utilized for this examination: 1. Automated exposure control 2. Adjustment of the mA and/or kV according to patient size 3. Use of iterative reconstruction technique CT chest without contrast August 14, 2018 INDICATION: Pneumonia. COMPARISON: CT chest July 25, 2018 TECHNIQUE: Multiple axial CT images of the chest were obtained with intravenous contrast. Coronal and sagittal reformats are provided. FINDINGS: Right chest wall cardiac device is identified with leads terminating in the right atrium and right ventricle. Heart size is within normal limits. Coronary artery vascular calcifications are present. Thoracic esophagus is normal in appearance. There is suggestion of a left hilar lymph node measuring 9 mm by short axis. Evaluation is limited by lack of intravenous contrast. No pathologically enlarged axillary or mediastinal lymph nodes are identified. There is a 5 mm calcified granuloma in the superior segment right lower lobe. Mild bronchial wall thickening may be seen with bronchitis. There is improved aeration of the superior segment left lower lobe with persistent patchy interstitial changes which may represent subsegmental atelectasis, scarring or resolving infiltrate. There are no pleural effusions. No pulmonary vascular congestion or pneumothorax. Visualized portions of the liver, spleen, bilateral adrenal glands, pancreas and gallbladder are normal. No suspicious osseous abnormality is identified. IMPRESSION: 1. There is improved aeration of the superior segment left lower lobe with persistent patchy interstitial changes which may reflect subsegmental atelectasis versus scarring versus continued resolution of infiltrate. A 3 month follow-up chest CT may be of benefit to ensure complete resolution. 2. Borderline left hilar lymph node may be reactive. Electronically signed by: Leatha Echevarria MD (08/14/2018 8:27 AM) [id number] DICTATED and SIGNED BY: LEATHA ECHEVARRIA MD DATE: 08/14/18 0827 Laboratory Tests Test 08/14/18 05:00 White Blood Count 5.3 x10^3/uL (4.0-11.0) Red Blood Count 4.01 x10^6/uL (3.50-5.40) Hemoglobin 12.5 g/dL (12.0-15.5) Hematocrit 37.3 % (36.0-47.0) Mean Corpuscular Volume 93 fL (79-100) Mean Corpuscular Hemoglobin 31 pg (25-35) Mean Corpuscular Hemoglobin Concent 34 g/dL (31-37) Red Cell Distribution Width 15.1 % (11.5-14.5) Platelet Count 342 x10^3/uL (140-400) Neutrophils (%) (Auto) 50 % (31-73) Lymphocytes (%) (Auto) 39 % (24-48) Monocytes (%) (Auto) 9 % (0-9) Eosinophils (%) (Auto) 2 % (0-3) Basophils (%) (Auto) 0 % (0-3) Neutrophils # (Auto) 2.6 x10^3uL (1.8-7.7) Lymphocytes # (Auto) 2.0 x10^3/uL (1.0-4.8) Monocytes # (Auto) 0.5 x10^3/uL (0.0-1.1) Eosinophils # (Auto) 0.1 x10^3/uL (0.0-0.7) Basophils # (Auto) 0.0 x10^3/uL (0.0-0.2) Sodium Level 136 mmol/L (136-145) Potassium Level 3.6 mmol/L (3.5-5.1) Chloride Level 96 mmol/L (98-107) Carbon Dioxide Level 31 mmol/L (21-32) Anion Gap 9 (6-14) Blood Urea Nitrogen 32 mg/dL (7-20) Creatinine 1.3 mg/dL (0.6-1.0) Estimated GFR (Cockcroft-Gault) 40.3 Glucose Level 92 mg/dL (70-99) Calcium Level 8.8 mg/dL (8.5-10.1) Assessment and Plan Assessmemt and Plan Problems Medical Problems: (1) Anxiety Status: Acute (2) Confusion Status: Acute (3) Dehydration Status: Acute (4) Hypertension Status: Acute (5) TIA (transient ischemic attack) Status: Acute Comment Review of Relevant I have reviewed the following items dina (where applicable) has been applied. Labs Laboratory Tests Test 08/12/18 14:12 08/12/18 14:13 08/13/18 03:20 08/14/18 05:00 Glucose (Fingerstick) 101 mg/dL (70-99) White Blood Count 6.4 x10^3/uL (4.0-11.0) 4.7 x10^3/uL (4.0-11.0) 5.3 x10^3/uL (4.0-11.0) Red Blood Count 4.20 x10^6/uL (3.50-5.40) 3.73 x10^6/uL (3.50-5.40) 4.01 x10^6/uL (3.50-5.40) Hemoglobin 12.6 g/dL (12.0-15.5) 11.4 g/dL (12.0-15.5) 12.5 g/dL (12.0-15.5) Hematocrit 38.5 % (36.0-47.0) 34.5 % (36.0-47.0) 37.3 % (36.0-47.0) Mean Corpuscular Volume 92 fL (79-100) 93 fL (79-100) 93 fL (79-100) Mean Corpuscular Hemoglobin 30 pg (25-35) 31 pg (25-35) 31 pg (25-35) Mean Corpuscular Hemoglobin Concent 33 g/dL (31-37) 33 g/dL (31-37) 34 g/dL (31-37) Red Cell Distribution Width 15.0 % (11.5-14.5) 15.0 % (11.5-14.5) 15.1 % (11.5-14.5) Platelet Count 371 x10^3/uL (140-400) 345 x10^3/uL (140-400) 342 x10^3/uL (140-400) Neutrophils (%) (Auto) 66 % (31-73) 47 % (31-73) 50 % (31-73) Lymphocytes (%) (Auto) 26 % (24-48) 42 % (24-48) 39 % (24-48) Monocytes (%) (Auto) 7 % (0-9) 9 % (0-9) 9 % (0-9) Eosinophils (%) (Auto) 1 % (0-3) 2 % (0-3) 2 % (0-3) Basophils (%) (Auto) 0 % (0-3) 0 % (0-3) 0 % (0-3) Neutrophils # (Auto) 4.3 x10^3uL (1.8-7.7) 2.2 x10^3uL (1.8-7.7) 2.6 x10^3uL (1.8-7.7) Lymphocytes # (Auto) 1.7 x10^3/uL (1.0-4.8) 1.9 x10^3/uL (1.0-4.8) 2.0 x10^3/uL (1.0-4.8) Monocytes # (Auto) 0.4 x10^3/uL (0.0-1.1) 0.4 x10^3/uL (0.0-1.1) 0.5 x10^3/uL (0.0-1.1) Eosinophils # (Auto) 0.1 x10^3/uL (0.0-0.7) 0.1 x10^3/uL (0.0-0.7) 0.1 x10^3/uL (0.0-0.7) Basophils # (Auto) 0.0 x10^3/uL (0.0-0.2) 0.0 x10^3/uL (0.0-0.2) 0.0 x10^3/uL (0.0-0.2) Prothrombin Time 12.1 SEC (11.7-14.0) Prothromb Time International Ratio 0.9 (0.8-1.1) Activated Partial Thromboplast Time 24 SEC (24-38) Sodium Level 136 mmol/L (136-145) 139 mmol/L (136-145) 136 mmol/L (136-145) Potassium Level 3.9 mmol/L (3.5-5.1) 3.6 mmol/L (3.5-5.1) 3.6 mmol/L (3.5-5.1) Chloride Level 97 mmol/L (98-107) 99 mmol/L (98-107) 96 mmol/L (98-107) Carbon Dioxide Level 27 mmol/L (21-32) 30 mmol/L (21-32) 31 mmol/L (21-32) Anion Gap 12 (6-14) 10 (6-14) 9 (6-14) Blood Urea Nitrogen 21 mg/dL (7-20) 20 mg/dL (7-20) 32 mg/dL (7-20) Creatinine 0.9 mg/dL (0.6-1.0) 1.0 mg/dL (0.6-1.0) 1.3 mg/dL (0.6-1.0) Estimated GFR (Cockcroft-Gault) 61.5 54.5 40.3 BUN/Creatinine Ratio 23 (6-20) Glucose Level 122 mg/dL (70-99) 102 mg/dL (70-99) 92 mg/dL (70-99) Calcium Level 9.7 mg/dL (8.5-10.1) 8.6 mg/dL (8.5-10.1) 8.8 mg/dL (8.5-10.1) Total Bilirubin 0.4 mg/dL (0.2-1.0) Aspartate Amino Transf (AST/SGOT) 23 U/L (15-37) Alanine Aminotransferase (ALT/SGPT) 8 U/L (14-59) Alkaline Phosphatase 115 U/L (46-116) Troponin I Quantitative < 0.017 ng/mL (0.000-0.055) Total Protein 7.5 g/dL (6.4-8.2) Albumin 3.6 g/dL (3.4-5.0) Albumin/Globulin Ratio 0.9 (1.0-1.7) Laboratory Tests Test 08/14/18 05:00 White Blood Count 5.3 x10^3/uL (4.0-11.0) Red Blood Count 4.01 x10^6/uL (3.50-5.40) Hemoglobin 12.5 g/dL (12.0-15.5) Hematocrit 37.3 % (36.0-47.0) Mean Corpuscular Volume 93 fL (79-100) Mean Corpuscular Hemoglobin 31 pg (25-35) Mean Corpuscular Hemoglobin Concent 34 g/dL (31-37) Red Cell Distribution Width 15.1 % (11.5-14.5) Platelet Count 342 x10^3/uL (140-400) Neutrophils (%) (Auto) 50 % (31-73) Lymphocytes (%) (Auto) 39 % (24-48) Monocytes (%) (Auto) 9 % (0-9) Eosinophils (%) (Auto) 2 % (0-3) Basophils (%) (Auto) 0 % (0-3) Neutrophils # (Auto) 2.6 x10^3uL (1.8-7.7) Lymphocytes # (Auto) 2.0 x10^3/uL (1.0-4.8) Monocytes # (Auto) 0.5 x10^3/uL (0.0-1.1) Eosinophils # (Auto) 0.1 x10^3/uL (0.0-0.7) Basophils # (Auto) 0.0 x10^3/uL (0.0-0.2) Sodium Level 136 mmol/L (136-145) Potassium Level 3.6 mmol/L (3.5-5.1) Chloride Level 96 mmol/L (98-107) Carbon Dioxide Level 31 mmol/L (21-32) Anion Gap 9 (6-14) Blood Urea Nitrogen 32 mg/dL (7-20) Creatinine 1.3 mg/dL (0.6-1.0) Estimated GFR (Cockcroft-Gault) 40.3 Glucose Level 92 mg/dL (70-99) Calcium Level 8.8 mg/dL (8.5-10.1) Medications Current Medications Lorazepam (Ativan) 1 mg 1X ONCE IV Last administered on 08/12/18at 14:22; Start 08/12/18 at 14:15; Stop 08/12/18 at 14:22; Status DC Furosemide (Lasix) 40 mg DAILY PO Last administered on 08/14/18 09:17; Start 08/12/18 at 17:00 Aspirin (Ecotrin) 81 mg DAILY PO Last administered on 08/14/18 09:17; Start at 09:00 Carbidopa/Levodopa (Sinemet 25/100) 2.5 tab BID PO Last administered on 09:18; Start 08/12/18 at 21:00 Carvedilol (Coreg) 12.5 mg BIDWMEALS PO Last administered on 08/13/18 08:10; Start 08/12/18 at 17:15; Stop 08/13/18 at 13:21; Status DC Clopidogrel Bisulfate (Plavix) 75 mg DAILYWBKFT PO Last administered on 09:20; Start 08/13/18 at 08:00 Cyclobenzaprine HCl (Flexeril) 10 mg TID PO Last administered on 08/14/18 09: 23; Start 08/12/18 at 21:00 Ferrous Sulfate (Feosol) 325 mg DAILY08 PO Last administered on 08/14/18 09:22 ; Start 08/13/18 at 08:00 Gabapentin (Neurontin) 300 mg TID PO Last administered on 08/14/18 09:17; Start 08/12/18 at 21:00 Lactobacillus Rhamnosus (Culturelle) 1 cap BID PO Last administered on 09:17; Start 08/12/18 at 21:00 Lorazepam (Ativan) 0.5 mg QID PO Last administered on 08/14/18 09:23; Start at 17:00 Metoclopramide HCl (Reglan) 10 mg PRN QID PRN PO NAUSEA Last administered on 12:36; Start 08/12/18 at 17:00; Stop 08/13/18 at 15:37; Status DC Oxycodone HCl (OxyCONTIN) 10 mg TID PO Last administered on 08/14/18 09:22; Start 08/12/18 at 21:00 Zolpidem Tartrate (Ambien) 5 mg QHS PO Last administered on 08/13/18 21:50; Start 08/12/18 at 21:00 Non-Formulary Medication (Budesonide/ Formoterol Fumarate (Symbicort 80-4.5 Mcg Inhaler)) 2 puff BID IH ; Start 08/12/18 at 21:00; Status UNV Buspirone HCl (Buspar) 153 mg TID PO ; Start 08/12/18 at 17:15; Stop 08/12/18 at 21:21; Status DC Vitamin D (Vitamin D3) 5,000 unit DAILY PO Last administered on 08/14/18 09:20 ; Start 08/13/18 at 09:00 Diltiazem HCl (Cardizem 24hr Cd) 180 mg DAILY PO Last administered on 08/13/18 08:09; Start 08/13/18 at 09:00; Stop 08/13/18 at 18:02; Status DC Docusate Sodium (Colace) 100 mg PRN DAILY PRN PO STOOL SOFTNER; Start 08/12/18 at 18:00 Donepezil HCl (Aricept) 10 mg DAILY PO Last administered on 08/14/18 09:17; Start 08/13/18 at 09:00 Duloxetine HCl (Cymbalta) 60 mg BID PO Last administered on 08/14/18 09:18; Start 08/12/18 at 21:00 Pantoprazole Sodium (Protonix) 40 mg DAILYAC PO Last administered on 08/14/18 06:06; Start 08/13/18 at 07:30 Levothyroxine Sodium (Synthroid) 150 mcg DAILY06 PO Last administered on 06:05; Start 08/13/18 at 06:00 Lidocaine (Lidoderm) 1 patch QHS TD Last administered on 08/13/18at 21:51; Start 08/12/18 at 21:00 Non-Formulary Medication (Melatonin ) 10 mg QHS PO ; Start 08/12/18 at 21:00; Stop 08/12/18 at 21:00; Status DC Meloxicam (Mobic) 7.5 mg DAILY PO Last administered on 08/14/18 09:22; Start 08/13/18 at 09:00 Metformin HCl (Glucophage) 500 mg BIDWMEALS PO Last administered on 08/14/18 09:22; Start 08/12/18 at 18:00 Calcium Polycarbophil (Fibercon) 625 mg BID PO Last administered on 08/14/18 09:20; Start 08/12/18 at 21:00 Mirtazapine (Remeron) 30 mg QHS PO Last administered on 08/13/18 21:49; Start 08/12/18 at 21:00 Primidone (Mysoline) 50 mg TID PO Last administered on 08/14/18 09:22; Start 08/12/18 at 21:00 Ropinirole HCl (Requip) 1 mg TID PO Last administered on 08/14/18 09:20; Start 08/12/18 at 21:00 Vitamin E 400 unit DAILY PO Last administered on 08/14/18 09:18; Start at 09:00 Miscellaneous (Lidoderm Patch Removal) 1 ea DAILY MC Last administered on 09:00; Start 08/13/18 at 09:00 Albuterol Sulfate (Ventolin Neb Soln) 2.5 mg Q6HRS NEB Last administered on 06:24; Start 08/12/18 at 18:00 Budesonide (Pulmicort) 0.5 mg RTBID NEB Last administered on 08/14/18 06:24; Start 08/12/18 at 20:00 Acetaminophen (Tylenol) 1,000 mg 1X ONCE PO Last administered on 08/12/18 18: 10; Start 08/12/18 at 18:15; Stop 08/12/18 at 18:16; Status DC Buspirone HCl (Buspar) 15 mg TID PO Last administered on 08/14/18 09:18; Start 08/12/18 at 21:30 Carvedilol (Coreg) 25 mg BIDWMEALS PO ; Start 08/13/18 at 17:00; Stop 08/13/18 at 18:02; Status DC Hydralazine HCl (Apresoline Inj) 10 mg PRN Q4HRS PRN IVP ELEVATED BP, SEE COMMENTS; Start 08/13/18 at 13:30 Metoclopramide HCl (Reglan) 10 mg QIDACHS PO Last administered on 08/14/18 06: 06; Start 08/13/18 at 16:30 Diltiazem HCl (Cardizem 24hr Cd) 240 mg DAILY PO Last administered on 4/10/ 19at 09:19; Start 08/14/18 at 09:00 Carvedilol (Coreg) 12.5 mg BIDWMEALS PO Last administered on 08/13/18at 18:17; Start 08/14/18 at 08:00 Active Scripts Active Symbicort 80-4.5 Mcg Inhaler (Budesonide/Formoterol Fumarate) 10.2 Gm Hfa.aer.ad 2 Puff IH BID 30 Days Reglan (Metoclopramide Hcl) 10 Mg Tablet 1 Tab PO QID PRN Culturelle (Lactobacillus Rhamnosus Gg) 1 Each Cap.sprink 1 Cap PO BID Clopidogrel (Clopidogrel Bisulfate) 75 Mg Tablet 75 Mg PO DAILYWBKFT Reported Stool Softener (Docusate Sodium) 50 Mg Capsule 50 Mg PO PRN PRN Fiber (Methylcellulose) 500 Mg Tablet 500 Mg PO BID Mysoline (Primidone) 50 Mg Tablet 50 Mg PO TID Ferrous Sulfate 325 Mg Tablet 1 Tab PO DAILY Vitamin E 1,000 Unit Capsule 400 Unit PO DAILY Vitamin D3 (Cholecalciferol (Vitamin D3)) 5,000 Unit Tablet 1 Tab PO DAILY Melatonin 3 Mg Tablet 10 Mg PO QHS Buspirone Hcl 15 Mg Tablet 1 Tab PO TID Meloxicam 7.5 Mg Tablet 7.5 Mg PO DAILY Gabapentin (Gabapentin) 300 Mg Capsule 300 Mg PO TID Oxycontin (Oxycodone HCl) 10 Mg Tab.er.12h 10 Mg PO TID Cartia Xt (Diltiazem Hcl) 180 Mg Cap.er.24h 180 Mg PO DAILY Levothyroxine Sodium 150 Mcg Tablet 1 Tab PO DAILY07 Ropinirole Hcl 1 Mg Tablet 1 Mg PO TID Donepezil Hcl 10 Mg Tablet 1 Tab PO DAILY Lorazepam 1 Mg Tablet 0.5 Mg PO QID Duloxetine Hcl 60 Mg Capsule.dr 60 Mg PO BID Cyclobenzaprine Hcl 10 Mg Tablet 1 Tab PO TID Lidoderm (Lidocaine) 700 Mg Adh..patch 1 Patch TP HS Aspir 81 (Aspirin) 81 Mg Tablet.dr 1 Tab PO DAILY Carbidopa-Levodopa 25-100 Tab (Carbidopa/Levodopa) 1 Each Tablet 2.5 Tab PO Q3HR W/A Mirtazapine 30 Mg Tab.rapdis 30 Mg PO HS Zolpidem Tartrate 5 Mg Tablet 1 Tab PO QHS Coreg (Carvedilol) 12.5 Mg Tablet 1 Tab PO BID . Metformin Hcl 500 Mg Tablet 1 Tab PO BID Nexium Capsule (Esomeprazole Magnesium) 40 Mg Capsule.dr 40 Mg PO DAILY Vitals/I & O Vital Sign - Last 24 Hours 08/13/18 08/13/18 08/13/18 08/13/18 12:10 12:40 15:00 15:42 Temp 97.9 97.9 Pulse 70 Resp 17 18 17 B/P (MAP) 120/63 (82) Pulse Ox 98 O2 Delivery Room Air Room Air Room Air Room Air 08/13/18 08/13/18 08/13/18 08/13/18 18:17 19:20 20:00 20:16 Temp 98.4 98.4 Pulse 70 67 Resp 18 B/P (MAP) 120/63 154/65 (94) Pulse Ox 95 O2 Delivery Room Air Room Air Room Air 08/13/18 08/13/18 08/13/18 08/14/18 20:16 21:51 23:12 03:08 Temp 97.3 98.2 97.3 98.2 Pulse 65 69 Resp 18 18 18 B/P (MAP) 125/38 (67) 115/52 (73) Pulse Ox 94 95 O2 Delivery Room Air Room Air Room Air Room Air 08/14/18 08/14/18 08/14/18 08/14/18 06:25 07:00 08:00 09:19 Temp 97.9 97.9 Pulse 71 71 Resp 18 B/P (MAP) 129/57 (81) 129/57 Pulse Ox 98 98 O2 Delivery Room Air Room Air Room Air 08/14/18 09:22 Resp 17 O2 Delivery Room Air Intake and Output 08/13/18 08/13/18 08/14/18 15:00 23:00 07:00 Intake Total 600 ml 800 ml 440 ml Balance 600 ml 800 ml 440 ml PITER BERMUDEZ MD Aug 14, 2018 11:00
--- NOTE | 2018-08-14 11:26 | PDOC ---
CARDIO Progress Notes Date and Time Date of Service 08/14/18 Time of Evaluation 1110 Subjective Subjective: No Chest Pain, No shortness of breath, No Palpitations, Other ( speech improving) Vitals Vitals Vital Signs Date Time Temp Pulse Resp B/P (MAP) Pulse Ox O2 Delivery O2 Flow Rate FiO2 08/14/18 09:22 17 Room Air 08/14/18 09:19 71 129/57 08/14/18 07:00 97.9 98 97.9 Weight Weight [ ] Input and Output Intake and Output Intake and Output 08/14/18 07:00 Intake Total 1840 ml Balance 1840 ml Intake Oral 1840 ml # Voids 8 Laboratory Labs Laboratory Tests Test 08/14/18 05:00 White Blood Count 5.3 x10^3/uL (4.0-11.0) Red Blood Count 4.01 x10^6/uL (3.50-5.40) Hemoglobin 12.5 g/dL (12.0-15.5) Hematocrit 37.3 % (36.0-47.0) Mean Corpuscular Volume 93 fL (79-100) Mean Corpuscular Hemoglobin 31 pg (25-35) Mean Corpuscular Hemoglobin Concent 34 g/dL (31-37) Red Cell Distribution Width 15.1 % (11.5-14.5) Platelet Count 342 x10^3/uL (140-400) Neutrophils (%) (Auto) 50 % (31-73) Lymphocytes (%) (Auto) 39 % (24-48) Monocytes (%) (Auto) 9 % (0-9) Eosinophils (%) (Auto) 2 % (0-3) Basophils (%) (Auto) 0 % (0-3) Neutrophils # (Auto) 2.6 x10^3uL (1.8-7.7) Lymphocytes # (Auto) 2.0 x10^3/uL (1.0-4.8) Monocytes # (Auto) 0.5 x10^3/uL (0.0-1.1) Eosinophils # (Auto) 0.1 x10^3/uL (0.0-0.7) Basophils # (Auto) 0.0 x10^3/uL (0.0-0.2) Sodium Level 136 mmol/L (136-145) Potassium Level 3.6 mmol/L (3.5-5.1) Chloride Level 96 mmol/L (98-107) Carbon Dioxide Level 31 mmol/L (21-32) Anion Gap 9 (6-14) Blood Urea Nitrogen 32 mg/dL (7-20) Creatinine 1.3 mg/dL (0.6-1.0) Estimated GFR (Cockcroft-Gault) 40.3 Glucose Level 92 mg/dL (70-99) Calcium Level 8.8 mg/dL (8.5-10.1) Physical Exam HEENT: Neck Supple W Full Motion Chest: Symmetric LUNGS: Clear to Auscultation Heart: S1S2, RRR Abdomen: Soft N/T Extremities: No Edema Neurology: alert, oriented, follow commands Assessment Assessment 1. Accelerated HTN: now well controlled 2. Possible CVA/TIA vs hypertensive encephalopathy; CT head negative for acute changes. Unable to have MRI due to PPM. Dysarthria improved. 3. Right carotid artery stenosis: moderate per doppler 4. Hx of CV/and Parkinson's/dementia 5. CAD; past stent to PLB, clinically stable. Echo showed preserved LV systolic function with an EF of >55. 6. HLP; statin 7. PAFIB: maintaining SR. 8. SSS s/p PPM ([facility]). Device interrogation showed no AFIB or arrhythmias. Device in NOT MRI compatible. Recommendations ASA for stroke prevention, likely deemed poor candidate for intermodal customer service anticoagulation due to high fall risk Continue statin, Plavix, BB Cardizem for rate control. Supportive care Follow neuro MICHAEL Linn APRN Aug 14, 2018 11:26
--- NOTE | 2018-08-14 14:34 | PDOC ---
PROGRESS NOTES Assessment Assessment Metabolic encephalopathy. Dysarthria, chronic likely. Near hypertensive urgency, SBP 192 mmHg. Confusion. Left side weakness, chronic. Seizure, Hx. Anisocoria, chronic. PD. AFib. CAD, s/p stent placement. HTN. HLD. Cognitive impairment. Pacemaker. No evidence of acute large vessel stroke this time. RECOMMENDATIONS/PLAN: Continue Plavix 75 mg daily. Continue ASA 81 mg daily. Continue Sinemet at current dosing. 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 Lipid panel: WNL. 2 HCTs on 08/12 and 08/14/18: No acute findings. History of Present Illness The patient is a 73-year-old right-handed female with history of old stroke with chronic left side weakness. She was noticed MS changes, confusion, facial drooping and increased left-sided weakness on 08/12/18. Her SBP was 192 mmHg checked by her daughter, so she was brought to the ER of [facility]. She had a stroke in September 2015 for which she was transferred to for intervention after receiving alteplase here. Residua was left hemiparesis and numbness, but she says these worsen on 08/12/18 but improved afterwards and facial drooping was not evident. She denies any headache, diplopia, dysphagia, dysarthria, history of head injury. She did have seizures at the time of her 2016 stroke. She follows with Dr. Rey and Dr. Stovall regarding her Parkinson's. She stated doing well on 08/14/18. Past Medical History Cardiovascular: AFIB, CAD, HTN, Other (mitral regurgitation) Pulmonary: COPD, Pneumonia, Other (sleep apnea) CENTRAL NERVOUS SYSTEM: CVA, Seizure, TIA, Other (Parkinson's) GI: Constipation, GERD, Irritable bowel disease, Peptic Ulcer disease, Other ( gastroparesis, diarrhea) Heme/Onc: Other (factor V Leiden deficiency) Psych: Anxiety, Depression Musculoskeletal: low back pain ENT: Other (glaucoma) Renal/: Urinary Incontinence Endocrine: Diabetes, Hypothyroidism Past Surgical History Pacemaker, Cataract Removal, Hernia Repair (umbilical), Tonsillectomy (/adenoids ), Hysterectomy, Colon Resection, Other (cardiac catheterization, coronary stent , spinal) Family History Cancer Social History , no alcohol or tobacco Allergies Coded Allergies: Sulfa (Sulfonamide Antibiotics) (Verified Allergy, Intermediate, hives, ) dexamethasone (Verified Allergy, Intermediate, 11/01/17) ROS Negative for fever, chills, weight loss, shortness of breath, chest pain, indigestion, hematochezia, melena, and dysuria. Full 14-point review of systems is negative. MEDICATIONS: Refer to [facility] PHYSICAL EXAMINATION: General appearance is in no acute distress. HEENT: Normocephalic and nontraumatic. Eyes, nose, ears, and throat are unremarkable. Neck is supple. No lymphadenopathy. No bruits are heard over the carotid artery. No crepitus. Cardiovascular: S1, S2, regular rate and rhythm. Pulmonary: Clear to auscultation bilaterally. Abdomen: Bowel sounds are positive. Abdomen is soft, nontender, and nondistended. Extremities: No rash, lesions, or edema. No restriction of range of motion NEUROLOGICAL EXAMINATION: Awake. Oriented to time, place and person. Right pupil 2-3 mm, left side 1.5 mm, reactive to light stimuli. EOMI. CN: no focal findings. Muscle tone: within normal. Muscle strength: 4+ DTR: 2 Plantar reflex: Neutral response bilaterally Gait: at her baseline walking. Sensory exam: no abnormal findings. No cerebellar signs elicited. F-T-N test accurate. Objective Objective Vital Signs Date Time Temp Pulse Resp B/P (MAP) Pulse Ox O2 Delivery O2 Flow Rate FiO2 08/14/18 13:51 17 Room Air 08/14/18 12:49 95 08/14/18 11:00 98.1 78 145/81 (102) 98.1 Intake and Output 08/14/18 06:59 Intake Total 1840 ml Balance 1840 ml Intake Oral 1840 ml # Voids 8 Vitals Signs Vitals VS - Last 72 Hours, by Label Date Time Temp Pulse Resp B/P (MAP) Pulse Ox O2 Delivery O2 Flow Rate FiO2 08/14/18 13:51 17 Room Air 08/14/18 13:22 17 Room Air 08/14/18 12:49 95 Room Air 08/14/18 11:00 98.1 78 18 145/81 (102) 98 Room Air 98.1 08/14/18 09:22 17 Room Air 08/14/18 09:19 71 129/57 08/14/18 08:00 Room Air 08/14/18 07:00 97.9 71 18 129/57 (81) 98 Room Air 97.9 08/14/18 06:25 98 Room Air 08/14/18 03:08 98.2 69 18 115/52 (73) 95 Room Air 98.2 08/13/18 23:12 97.3 65 18 125/38 (67) 94 Room Air 97.3 08/13/18 21:51 18 Room Air 08/13/18 20:16 Room Air 08/13/18 20:16 Room Air 08/13/18 20:00 Room Air 08/13/18 19:20 98.4 67 18 154/65 (94) 95 Room Air 98.4 08/13/18 18:17 70 120/63 08/13/18 15:42 17 Room Air 08/13/18 15:00 97.9 70 18 120/63 (82) 98 Room Air 97.9 08/13/18 12:40 Room Air 08/13/18 10:48 98.0 73 18 179/65 (103) 96 Room Air 98.0 08/13/18 08:26 Room Air 08/13/18 08:25 Room Air 08/13/18 08:10 78 192/86 08/13/18 08:09 78 192/86 08/13/18 08:09 17 Room Air 08/13/18 08:00 Room Air 08/13/18 07:45 98.0 78 18 192/86 (121) 94 Room Air 98.0 Laboratory Laboratory Laboratory Tests Test 08/14/18 05:00 White Blood Count 5.3 x10^3/uL (4.0-11.0) Red Blood Count 4.01 x10^6/uL (3.50-5.40) Hemoglobin 12.5 g/dL (12.0-15.5) Hematocrit 37.3 % (36.0-47.0) Mean Corpuscular Volume 93 fL (79-100) Mean Corpuscular Hemoglobin 31 pg (25-35) Mean Corpuscular Hemoglobin Concent 34 g/dL (31-37) Red Cell Distribution Width 15.1 % (11.5-14.5) Platelet Count 342 x10^3/uL (140-400) Neutrophils (%) (Auto) 50 % (31-73) Lymphocytes (%) (Auto) 39 % (24-48) Monocytes (%) (Auto) 9 % (0-9) Eosinophils (%) (Auto) 2 % (0-3) Basophils (%) (Auto) 0 % (0-3) Neutrophils # (Auto) 2.6 x10^3uL (1.8-7.7) Lymphocytes # (Auto) 2.0 x10^3/uL (1.0-4.8) Monocytes # (Auto) 0.5 x10^3/uL (0.0-1.1) Eosinophils # (Auto) 0.1 x10^3/uL (0.0-0.7) Basophils # (Auto) 0.0 x10^3/uL (0.0-0.2) Sodium Level 136 mmol/L (136-145) Potassium Level 3.6 mmol/L (3.5-5.1) Chloride Level 96 mmol/L (98-107) Carbon Dioxide Level 31 mmol/L (21-32) Anion Gap 9 (6-14) Blood Urea Nitrogen 32 mg/dL (7-20) Creatinine 1.3 mg/dL (0.6-1.0) Estimated GFR (Cockcroft-Gault) 40.3 Glucose Level 92 mg/dL (70-99) Calcium Level 8.8 mg/dL (8.5-10.1) Medication Medications Current Medications Carvedilol (Coreg) 12.5 mg BIDWMEALS PO Last administered on 08/13/18at 18:17; Start 08/14/18 at 08:00 Carvedilol (Coreg) 25 mg BIDWMEALS PO ; Start 08/13/18 at 17:00; Stop 08/13/18 at 18:02; Status DC Diltiazem HCl (Cardizem 24hr Cd) 240 mg DAILY PO Last administered on at 09:19; Start 08/14/18 at 09:00 Metoclopramide HCl (Reglan) 10 mg QIDACHS PO Last administered on 08/14/18at 11: 28; Start 08/13/18 at 16:30 Comment Review of Relevant I have reviewed the following items dina (where applicable) has been applied. KELSEY GUTIERRES MD Aug 14, 2018 14:34
[2018-08-14 15:00] VITALS: BP 115/56
[2018-08-14] MEDS: CARVEDILOL 12.5 MG TABLET. PO SCH (17:17)
[2018-08-14 19:00] VITALS: BP 170/65
[2018-08-14] MEDS: MIRTAZAPINE 15 MG TABLET PO SCH (20:46)
[2018-08-14] MEDS: LIDOCAINE (700MG/PATCH) PATCH. TD SCH (20:49)
[2018-08-14] MEDS: ZOLPIDEM 5 MG TABLET. PO SCH (20:50)
[2018-08-14 23:00] VITALS: BP 150/57
[2018-08-15] VITALS (8 sets, daily range): BP systolic 125–162; BP diastolic 35–69
[2018-08-15 04:16] LABS: BASO % 0 % (0-3); EOS # 0.1 x10^3/uL (0.0-0.7); EOS % 2 % (0-3); HEMATOCRIT 33.2 % (36.0-47.0); LYMPH # 2.2 x10^3/uL (1.0-4.8); LYMPH % 37 % (24-48); MEAN CORPUSCULAR HEMOGLOBIN 31 pg (25-35); MEAN CORPUSCULAR HGB CONC 33 g/dL (31-37); MEAN CORPUSCULAR VOLUME 93 fL (79-100); MONO # 0.6 x10^3/uL (0.0-1.1); MONO % 9 % (0-9); NEUT # 3.1 x10^3uL (1.8-7.7); NEUT % 52 % (31-73); PLATELET COUNT 306 x10^3/uL (140-400); RED BLOOD COUNT 3.59 x10^6/uL (3.50-5.40); RED CELL DISTRIBUTION WIDTH 14.9 % (11.5-14.5)
[2018-08-15 04:37] LABS: CALCIUM 8.3 mg/dL (8.5-10.1); CREATININE 1.1 mg/dL (0.6-1.0); GFR 48.8; POTASSIUM 3.6 mmol/L (3.5-5.1)
[2018-08-15] MEDS: LEVOTHYROXINE 150 MCG TABLET PO SCH (05:24)
[2018-08-15] MEDS: BUDESONIDE 0.5 MG/2 ML NEBU. NEB SCH ×2 (05:59→19:27)
[2018-08-15] MEDS: ALBUTEROL SULFATE 2.5 MG/3 ML NEBU. NEB SCH ×4 (05:59→23:50)
[2018-08-15] MEDS: PATCH REMOVAL. MC SCH (09:00)
[2018-08-15] MEDS: rOPINIRole 1 MG TABLET. PO SCH ×3 (09:16→20:40)
[2018-08-15] MEDS: LORazepam 1 MG TABLET PO SCH (09:16)
[2018-08-15] MEDS: MELOXICAM 7.5 MG TABLET PO SCH (09:17)
[2018-08-15] MEDS: oxyCODONE ER 10 MG TAB.ER.12H PO SCH ×3 (09:17→20:40)
[2018-08-15] MEDS: PRIMIDONE 50 MG TABLET PO SCH ×3 (09:17→20:40)
[2018-08-15] MEDS: FERROUS SULFATE 325 MG TABLET. PO SCH (09:17)
[2018-08-15] MEDS: busPIRone 5 MG TABLET. PO SCH ×3 (09:17→20:39)
[2018-08-15] MEDS: DULoxetine HCL 30 MG CAPSULE.DR PO SCH ×2 (09:18→20:40)
[2018-08-15] MEDS: DONEPEZIL HCL 10 MG TABLET. PO SCH (09:18)
[2018-08-15] MEDS: VITAMIN E 200 UNIT CAPSULE. PO SCH (09:18)
[2018-08-15] MEDS: CLOPIDOGREL BISULFATE 75 MG TABLET PO SCH (09:18)
[2018-08-15] MEDS: CHOLECALCIFEROL (VITAMIN D3) 5,000 UNIT CAPSULE PO SCH (09:18)
[2018-08-15] MEDS: LACTOBACILLUS RHAMNOSUS GG 1 CAPSULE. PO SCH ×2 (09:19→20:39)
[2018-08-15] MEDS: metFORMIN 500 MG TABLET PO SCH ×2 (09:19→16:39)
[2018-08-15] MEDS: GABAPENTIN 300 MG CAPSULE. PO SCH ×3 (09:19→20:40)
[2018-08-15] MEDS: METOCLOPRAMIDE 10 MG TABLET. PO SCH ×4 (09:19→20:41)
[2018-08-15] MEDS: CARBIDOPA/LEVODOPA 25/100MG TABLET PO SCH ×2 (09:19→20:40)
[2018-08-15] MEDS: CALCIUM POLYCARBOPHIL 625 MG TABLET PO SCH ×2 (09:19→20:39)
[2018-08-15] MEDS: FUROSEMIDE 40 MG TABLET. PO SCH (09:19)
[2018-08-15] MEDS: ASPIRIN ENTERIC COATED 81 MG TABLET.DR. PO SCH (09:19)
[2018-08-15] MEDS: PANTOPRAZOLE 40 MG TABLET.DR. PO SCH (09:19)
[2018-08-15] MEDS: CYCLOBENZAPRINE 10 MG TABLET. PO SCH ×3 (09:19→20:40)
[2018-08-15] MEDS: CARVEDILOL 12.5 MG TABLET. PO SCH ×2 (09:19→16:39)
--- NOTE | 2018-08-15 10:16 | PDOC ---
PROGRESS NOTES History of Present Illness History of Present Illness ASSESSMENT AND PLAN: Stroke symptoms secondary to malignant hypertension. POSSIBLE TIA Hypertensive encephalopathy, acute morbid obesity There is improved aeration of the superior segment left lower lobe with persistent patchy interstitial changes which may reflect subsegmental atelectasis versus scarring versus continued resolution of infiltrate. A 3 month follow-up chest CT may be of benefit to ensure complete resolution. cognitive decline sec to parkinson's disease 08/15. FELT LIGHTHEADED TODAY, WITH PT admitted. home meds, add Lasix 40 IV every day. Consult Neurology consult Cardiology. Full code. DVT prophylaxis, PT, OT, frequent labs, cardiac monitoring. iv hydralazine 10mg q 4 hrs prn bp support Follow-up two-view chest radiograph or CT chest, 3 months poor candidate for [employer] anticoagulation due to high fall risk PROGNOSIS: Guarded. 43 min pt exam, chart review, > 50% of time spent with exam, chart review, pt care coordination Vitals Vitals Vital Signs Date Time Temp Pulse Resp B/P (MAP) Pulse Ox O2 Delivery O2 Flow Rate FiO2 08/15/18 09:19 66 134/59 08/15/18 07:10 97.7 18 93 Room Air 97.7 Physical Exam Physical Exam LUNGS: Clear to auscultation. ABDOMEN: Soft, positive bowel sounds. EXTREMITIES: Trace edema. SKIN: No rashes. ENDOCRINE: No thyromegaly. LYMPHATICS: No cervical nodes. HEMATOPOIETIC: No bruising. PSYCHIATRIC: She is depressed. NEUROLOGICAL: left-sided weakness and a slight facial droop General: Alert, Cooperative, No acute distress, mild distress, Other (confused , encephalopathic) Heart: Regular rate (SR), Other (2/6 systolic murmur to LLS border) Lungs: Clear Abdomen: Soft, No tenderness Extremities: No cyanosis, No edema Skin: No breakdown, No significant lesion Labs LABS Laboratory Tests Test 08/15/18 02:40 White Blood Count 6.0 x10^3/uL (4.0-11.0) Red Blood Count 3.59 x10^6/uL (3.50-5.40) Hemoglobin 11.0 g/dL (12.0-15.5) Hematocrit 33.2 % (36.0-47.0) Mean Corpuscular Volume 93 fL (79-100) Mean Corpuscular Hemoglobin 31 pg (25-35) Mean Corpuscular Hemoglobin Concent 33 g/dL (31-37) Red Cell Distribution Width 14.9 % (11.5-14.5) Platelet Count 306 x10^3/uL (140-400) Neutrophils (%) (Auto) 52 % (31-73) Lymphocytes (%) (Auto) 37 % (24-48) Monocytes (%) (Auto) 9 % (0-9) Eosinophils (%) (Auto) 2 % (0-3) Basophils (%) (Auto) 0 % (0-3) Neutrophils # (Auto) 3.1 x10^3uL (1.8-7.7) Lymphocytes # (Auto) 2.2 x10^3/uL (1.0-4.8) Monocytes # (Auto) 0.6 x10^3/uL (0.0-1.1) Eosinophils # (Auto) 0.1 x10^3/uL (0.0-0.7) Basophils # (Auto) 0.0 x10^3/uL (0.0-0.2) Sodium Level 134 mmol/L (136-145) Potassium Level 3.6 mmol/L (3.5-5.1) Chloride Level 95 mmol/L (98-107) Carbon Dioxide Level 32 mmol/L (21-32) Anion Gap 7 (6-14) Blood Urea Nitrogen 31 mg/dL (7-20) Creatinine 1.1 mg/dL (0.6-1.0) Estimated GFR (Cockcroft-Gault) 48.8 Glucose Level 96 mg/dL (70-99) Calcium Level 8.3 mg/dL (8.5-10.1) Assessment and Plan Assessmemt and Plan Problems Medical Problems: (1) Anxiety Status: Acute (2) Confusion Status: Acute (3) Dehydration Status: Acute (4) Hypertension Status: Acute (5) TIA (transient ischemic attack) Status: Acute Comment Review of Relevant I have reviewed the following items dina (where applicable) has been applied. Labs Laboratory Tests Test 08/14/18 05:00 08/15/18 02:40 White Blood Count 5.3 x10^3/uL (4.0-11.0) 6.0 x10^3/uL (4.0-11.0) Red Blood Count 4.01 x10^6/uL (3.50-5.40) 3.59 x10^6/uL (3.50-5.40) Hemoglobin 12.5 g/dL (12.0-15.5) 11.0 g/dL (12.0-15.5) Hematocrit 37.3 % (36.0-47.0) 33.2 % (36.0-47.0) Mean Corpuscular Volume 93 fL (79-100) 93 fL (79-100) Mean Corpuscular Hemoglobin 31 pg (25-35) 31 pg (25-35) Mean Corpuscular Hemoglobin Concent 34 g/dL (31-37) 33 g/dL (31-37) Red Cell Distribution Width 15.1 % (11.5-14.5) 14.9 % (11.5-14.5) Platelet Count 342 x10^3/uL (140-400) 306 x10^3/uL (140-400) Neutrophils (%) (Auto) 50 % (31-73) 52 % (31-73) Lymphocytes (%) (Auto) 39 % (24-48) 37 % (24-48) Monocytes (%) (Auto) 9 % (0-9) 9 % (0-9) Eosinophils (%) (Auto) 2 % (0-3) 2 % (0-3) Basophils (%) (Auto) 0 % (0-3) 0 % (0-3) Neutrophils # (Auto) 2.6 x10^3uL (1.8-7.7) 3.1 x10^3uL (1.8-7.7) Lymphocytes # (Auto) 2.0 x10^3/uL (1.0-4.8) 2.2 x10^3/uL (1.0-4.8) Monocytes # (Auto) 0.5 x10^3/uL (0.0-1.1) 0.6 x10^3/uL (0.0-1.1) Eosinophils # (Auto) 0.1 x10^3/uL (0.0-0.7) 0.1 x10^3/uL (0.0-0.7) Basophils # (Auto) 0.0 x10^3/uL (0.0-0.2) 0.0 x10^3/uL (0.0-0.2) Sodium Level 136 mmol/L (136-145) 134 mmol/L (136-145) Potassium Level 3.6 mmol/L (3.5-5.1) 3.6 mmol/L (3.5-5.1) Chloride Level 96 mmol/L (98-107) 95 mmol/L (98-107) Carbon Dioxide Level 31 mmol/L (21-32) 32 mmol/L (21-32) Anion Gap 9 (6-14) 7 (6-14) Blood Urea Nitrogen 32 mg/dL (7-20) 31 mg/dL (7-20) Creatinine 1.3 mg/dL (0.6-1.0) 1.1 mg/dL (0.6-1.0) Estimated GFR (Cockcroft-Gault) 40.3 48.8 Glucose Level 92 mg/dL (70-99) 96 mg/dL (70-99) Calcium Level 8.8 mg/dL (8.5-10.1) 8.3 mg/dL (8.5-10.1) Laboratory Tests Test 08/15/18 02:40 White Blood Count 6.0 x10^3/uL (4.0-11.0) Red Blood Count 3.59 x10^6/uL (3.50-5.40) Hemoglobin 11.0 g/dL (12.0-15.5) Hematocrit 33.2 % (36.0-47.0) Mean Corpuscular Volume 93 fL (79-100) Mean Corpuscular Hemoglobin 31 pg (25-35) Mean Corpuscular Hemoglobin Concent 33 g/dL (31-37) Red Cell Distribution Width 14.9 % (11.5-14.5) Platelet Count 306 x10^3/uL (140-400) Neutrophils (%) (Auto) 52 % (31-73) Lymphocytes (%) (Auto) 37 % (24-48) Monocytes (%) (Auto) 9 % (0-9) Eosinophils (%) (Auto) 2 % (0-3) Basophils (%) (Auto) 0 % (0-3) Neutrophils # (Auto) 3.1 x10^3uL (1.8-7.7) Lymphocytes # (Auto) 2.2 x10^3/uL (1.0-4.8) Monocytes # (Auto) 0.6 x10^3/uL (0.0-1.1) Eosinophils # (Auto) 0.1 x10^3/uL (0.0-0.7) Basophils # (Auto) 0.0 x10^3/uL (0.0-0.2) Sodium Level 134 mmol/L (136-145) Potassium Level 3.6 mmol/L (3.5-5.1) Chloride Level 95 mmol/L (98-107) Carbon Dioxide Level 32 mmol/L (21-32) Anion Gap 7 (6-14) Blood Urea Nitrogen 31 mg/dL (7-20) Creatinine 1.1 mg/dL (0.6-1.0) Estimated GFR (Cockcroft-Gault) 48.8 Glucose Level 96 mg/dL (70-99) Calcium Level 8.3 mg/dL (8.5-10.1) Medications Current Medications Lorazepam (Ativan) 1 mg 1X ONCE IV Last administered on 08/12/18 14:22; Start 08/12/18 at 14:15; Stop 08/12/18 at 14:22; Status DC Furosemide (Lasix) 40 mg DAILY PO Last administered on 08/15/18 09:19; Start 08/12/18 at 17:00 Aspirin (Ecotrin) 81 mg DAILY PO Last administered on 08/15/18 09:19; Start at 09:00 Carbidopa/Levodopa (Sinemet 25/100) 2.5 tab BID PO Last administered on 09:19; Start 08/12/18 at 21:00 Carvedilol (Coreg) 12.5 mg BIDWMEALS PO Last administered on 08/13/18 08:10; Start 08/12/18 at 17:15; Stop 08/13/18 at 13:21; Status DC Clopidogrel Bisulfate (Plavix) 75 mg DAILYWBKFT PO Last administered on 09:18; Start 08/13/18 at 08:00 Cyclobenzaprine HCl (Flexeril) 10 mg TID PO Last administered on 08/15/18 09: 19; Start 08/12/18 at 21:00 Ferrous Sulfate (Feosol) 325 mg DAILY08 PO Last administered on 08/15/18 09:17 ; Start 08/13/18 at 08:00 Gabapentin (Neurontin) 300 mg TID PO Last administered on 08/15/18 09:19; Start 08/12/18 at 21:00 Lactobacillus Rhamnosus (Culturelle) 1 cap BID PO Last administered on 09:19; Start 08/12/18 at 21:00 Lorazepam (Ativan) 0.5 mg QID PO Last administered on 08/15/18 09:16; Start at 17:00; Stop 08/15/18 at 09:39; Status DC Metoclopramide HCl (Reglan) 10 mg PRN QID PRN PO NAUSEA Last administered on 12:36; Start 08/12/18 at 17:00; Stop 08/13/18 at 15:37; Status DC Oxycodone HCl (OxyCONTIN) 10 mg TID PO Last administered on 08/15/18 09:17; Start 08/12/18 at 21:00 Zolpidem Tartrate (Ambien) 5 mg QHS PO Last administered on 08/14/18at 20:50; Start 08/12/18 at 21:00 Non-Formulary Medication (Budesonide/ Formoterol Fumarate (Symbicort 80-4.5 Mcg Inhaler)) 2 puff BID IH ; Start 08/12/18 at 21:00; Status UNV Buspirone HCl (Buspar) 153 mg TID PO ; Start 08/12/18 at 17:15; Stop 08/12/18 at 21:21; Status DC Vitamin D (Vitamin D3) 5,000 unit DAILY PO Last administered on 08/15/18 09:18 ; Start 08/13/18 at 09:00 Diltiazem HCl (Cardizem 24hr Cd) 180 mg DAILY PO Last administered on 08/13/18at 08:09; Start 08/13/18 at 09:00; Stop 08/13/18 at 18:02; Status DC Docusate Sodium (Colace) 100 mg PRN DAILY PRN PO STOOL SOFTNER; Start 08/12/18 at 18:00 Donepezil HCl (Aricept) 10 mg DAILY PO Last administered on 08/15/18 09:18; Start 08/13/18 at 09:00 Duloxetine HCl (Cymbalta) 60 mg BID PO Last administered on 08/15/18 09:18; Start 08/12/18 at 21:00 Pantoprazole Sodium (Protonix) 40 mg DAILYAC PO Last administered on 08/15/18 09:19; Start 08/13/18 at 07:30 Levothyroxine Sodium (Synthroid) 150 mcg DAILY06 PO Last administered on 05:24; Start 08/13/18 at 06:00 Lidocaine (Lidoderm) 1 patch QHS TD Last administered on 08/14/18 20:49; Start 08/12/18 at 21:00 Non-Formulary Medication (Melatonin ) 10 mg QHS PO ; Start 08/12/18 at 21:00; Stop 08/12/18 at 21:00; Status DC Meloxicam (Mobic) 7.5 mg DAILY PO Last administered on 08/15/18 09:17; Start 08/13/18 at 09:00 Metformin HCl (Glucophage) 500 mg BIDWMEALS PO Last administered on 08/15/18 09:19; Start 08/12/18 at 18:00 Calcium Polycarbophil (Fibercon) 625 mg BID PO Last administered on 08/15/18 09:19; Start 08/12/18 at 21:00 Mirtazapine (Remeron) 30 mg QHS PO Last administered on 08/14/18 20:46; Start 08/12/18 at 21:00 Primidone (Mysoline) 50 mg TID PO Last administered on 08/15/18 09:17; Start 08/12/18 at 21:00 Ropinirole HCl (Requip) 1 mg TID PO Last administered on 08/15/18 09:16; Start 08/12/18 at 21:00 Vitamin E 400 unit DAILY PO Last administered on 08/15/18 09:18; Start at 09:00 Miscellaneous (Lidoderm Patch Removal) 1 ea DAILY MC Last administered on 09:00; Start 08/13/18 at 09:00 Albuterol Sulfate (Ventolin Neb Soln) 2.5 mg Q6HRS NEB Last administered on 03/25at 05:59; Start 08/12/18 at 18:00 Budesonide (Pulmicort) 0.5 mg RTBID NEB Last administered on 08/15/18at 05:59; Start 08/12/18 at 20:00 Acetaminophen (Tylenol) 1,000 mg 1X ONCE PO Last administered on 08/12/18at 18: 10; Start 08/12/18 at 18:15; Stop 08/12/18 at 18:16; Status DC Buspirone HCl (Buspar) 15 mg TID PO Last administered on 08/15/18at 09:17; Start 08/12/18 at 21:30 Carvedilol (Coreg) 25 mg BIDWMEALS PO ; Start 08/13/18 at 17:00; Stop 08/13/18 at 18:02; Status DC Hydralazine HCl (Apresoline Inj) 10 mg PRN Q4HRS PRN IVP ELEVATED BP, SEE COMMENTS; Start 08/13/18 at 13:30 Metoclopramide HCl (Reglan) 10 mg QIDACHS PO Last administered on 08/15/18at 09: 19; Start 08/13/18 at 16:30 Diltiazem HCl (Cardizem 24hr Cd) 240 mg DAILY PO Last administered on at 09:18; Start 08/14/18 at 09:00 Carvedilol (Coreg) 12.5 mg BIDWMEALS PO Last administered on 08/15/18at 09:19; Start 08/14/18 at 08:00 Lorazepam (Ativan) 0.5 mg QID PO ; Start 08/15/18 at 13:00 Active Scripts Active Symbicort 80-4.5 Mcg Inhaler (Budesonide/Formoterol Fumarate) 10.2 Gm Hfa.aer.ad 2 Puff IH BID 30 Days Reglan (Metoclopramide Hcl) 10 Mg Tablet 1 Tab PO QID PRN Culturelle (Lactobacillus Rhamnosus Gg) 1 Each Cap.sprink 1 Cap PO BID Clopidogrel (Clopidogrel Bisulfate) 75 Mg Tablet 75 Mg PO DAILYWBKFT Reported Stool Softener (Docusate Sodium) 50 Mg Capsule 50 Mg PO PRN PRN Fiber (Methylcellulose) 500 Mg Tablet 500 Mg PO BID Mysoline (Primidone) 50 Mg Tablet 50 Mg PO TID Ferrous Sulfate 325 Mg Tablet 1 Tab PO DAILY Vitamin E 1,000 Unit Capsule 400 Unit PO DAILY Vitamin D3 (Cholecalciferol (Vitamin D3)) 5,000 Unit Tablet 1 Tab PO DAILY Melatonin 3 Mg Tablet 10 Mg PO QHS Buspirone Hcl 15 Mg Tablet 1 Tab PO TID Meloxicam 7.5 Mg Tablet 7.5 Mg PO DAILY Gabapentin (Gabapentin) 300 Mg Capsule 300 Mg PO TID Oxycontin (Oxycodone HCl) 10 Mg Tab.er.12h 10 Mg PO TID Cartia Xt (Diltiazem Hcl) 180 Mg Cap.er.24h 180 Mg PO DAILY Levothyroxine Sodium 150 Mcg Tablet 1 Tab PO DAILY07 Ropinirole Hcl 1 Mg Tablet 1 Mg PO TID Donepezil Hcl 10 Mg Tablet 1 Tab PO DAILY Lorazepam 1 Mg Tablet 0.5 Mg PO QID Duloxetine Hcl 60 Mg Capsule.dr 60 Mg PO BID Cyclobenzaprine Hcl 10 Mg Tablet 1 Tab PO TID Lidoderm (Lidocaine) 700 Mg Adh..patch 1 Patch TP HS Aspir 81 (Aspirin) 81 Mg Tablet.dr 1 Tab PO DAILY Carbidopa-Levodopa 25-100 Tab (Carbidopa/Levodopa) 1 Each Tablet 2.5 Tab PO Q3HR W/A Mirtazapine 30 Mg Tab.rapdis 30 Mg PO HS Zolpidem Tartrate 5 Mg Tablet 1 Tab PO QHS Coreg (Carvedilol) 12.5 Mg Tablet 1 Tab PO BID . Metformin Hcl 500 Mg Tablet 1 Tab PO BID Nexium Capsule (Esomeprazole Magnesium) 40 Mg Capsule.dr 40 Mg PO DAILY Vitals/I & O Vital Sign - Last 24 Hours 08/14/18 08/14/18 08/14/18 08/14/18 11:00 12:49 13:51 15:00 Temp 98.1 98.4 98.1 98.4 Pulse 78 69 Resp 18 17 18 B/P (MAP) 145/81 (102) 115/56 (75) Pulse Ox 98 95 96 O2 Delivery Room Air Room Air Room Air Room Air 08/14/18 08/14/18 08/14/18 08/14/18 17:17 17:51 19:00 19:31 Temp 97.4 97.4 Pulse 69 62 Resp 18 B/P (MAP) 115/56 170/65 (100) Pulse Ox 96 97 O2 Delivery Room Air Room Air Room Air 08/14/18 08/14/18 08/14/18 08/14/18 19:32 20:00 20:48 23:00 Temp 97.4 97.4 Pulse 66 Resp 16 18 B/P (MAP) 150/57 (88) Pulse Ox 97 97 95 O2 Delivery Room Air Room Air Room Air Room Air 08/15/18 08/15/18 08/15/18 08/15/18 00:48 03:00 06:00 06:00 Temp 97.4 97.4 Pulse 63 Resp 16 18 B/P (MAP) 129/45 (73) Pulse Ox 95 97 97 O2 Delivery Room Air Room Air Room Air 08/15/18 08/15/18 08/15/18 07:10 09:18 09:19 Temp 97.7 97.7 Pulse 66 66 66 Resp 18 B/P (MAP) 134/59 (84) 134/59 134/59 Pulse Ox 93 O2 Delivery Room Air Intake and Output 08/14/18 08/14/18 08/15/18 14:59 22:59 06:59 Intake Total 480 ml 160 ml Balance 480 ml 160 ml PITER BERMUDEZ MD Aug 15, 2018 10:16
[2018-08-15] MEDS: LORazepam 0.5 MG TABLET PO SCH ×3 (12:06→20:39)
--- NOTE | 2018-08-15 17:03 | PDOC ---
PROGRESS NOTES Assessment Assessment Metabolic encephalopathy. Dysarthria, chronic likely. Near hypertensive urgency, SBP 192 mmHg. Confusion. Left side weakness, chronic. Seizure, Hx. Anisocoria, chronic. PD. AFib. CAD, s/p stent placement. HTN. HLD. Cognitive impairment. Pacemaker. No evidence of acute large vessel stroke this time. RECOMMENDATIONS/PLAN: Continue Plavix 75 mg daily. Continue ASA 81 mg daily. Continue Sinemet at current dosing. 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 FU with PCP. FU with her neurologist. Lipid panel: WNL. 2 HCTs on 08/12 and 08/14/18: No acute findings. History of Present Illness The patient is a 73-year-old right-handed female with history of old stroke with chronic left side weakness. She was noticed MS changes, confusion, facial drooping and increased left-sided weakness on 08/12/18. Her SBP was 192 mmHg checked by her daughter, so she was brought to the ER of [facility]. She had a stroke in September 2015 for which she was transferred to for intervention after receiving alteplase here. Residua was left hemiparesis and numbness, but she says these worsen on 08/12/18 but improved afterwards and facial drooping was not evident. She denies any headache, diplopia, dysphagia, dysarthria, history of head injury. She did have seizures at the time of her 2016 stroke. She follows with Dr. Rey and Dr. Stovall regarding her Parkinson's. She stated doing well on 08/14/18. Past Medical History Cardiovascular: AFIB, CAD, HTN, Other (mitral regurgitation) Pulmonary: COPD, Pneumonia, Other (sleep apnea) CENTRAL NERVOUS SYSTEM: CVA, Seizure, TIA, Other (Parkinson's) GI: Constipation, GERD, Irritable bowel disease, Peptic Ulcer disease, Other ( gastroparesis, diarrhea) Heme/Onc: Other (factor V Leiden deficiency) Psych: Anxiety, Depression Musculoskeletal: low back pain ENT: Other (glaucoma) Renal/: Urinary Incontinence Endocrine: Diabetes, Hypothyroidism Past Surgical History Pacemaker, Cataract Removal, Hernia Repair (umbilical), Tonsillectomy (/adenoids ), Hysterectomy, Colon Resection, Other (cardiac catheterization, coronary stent , spinal) Family History Cancer Social History , no alcohol or tobacco Allergies Coded Allergies: Sulfa (Sulfonamide Antibiotics) (Verified Allergy, Intermediate, hives, ) dexamethasone (Verified Allergy, Intermediate, 11/01/17) ROS Negative for fever, chills, weight loss, shortness of breath, chest pain, indigestion, hematochezia, melena, and dysuria. Full 14-point review of systems is negative. MEDICATIONS: Refer to [facility] PHYSICAL EXAMINATION: General appearance is in no acute distress. HEENT: Normocephalic and nontraumatic. Eyes, nose, ears, and throat are unremarkable. Neck is supple. No lymphadenopathy. No bruits are heard over the carotid artery. No crepitus. Cardiovascular: S1, S2, regular rate and rhythm. Pulmonary: Clear to auscultation bilaterally. Abdomen: Bowel sounds are positive. Abdomen is soft, nontender, and nondistended. Extremities: No rash, lesions, or edema. No restriction of range of motion NEUROLOGICAL EXAMINATION: Awake. Oriented to time, place and person. Anisocoria, reactive to light stimuli. EOMI. CN: no focal findings. Muscle tone: within normal. Muscle strength: 4+ DTR: 2 Plantar reflex: Neutral response bilaterally Gait: at her baseline walking. Sensory exam: no abnormal findings. No cerebellar signs elicited. F-T-N test accurate. Objective Objective Vital Signs Date Time Temp Pulse Resp B/P (MAP) Pulse Ox O2 Delivery O2 Flow Rate FiO2 08/15/18 16:39 59 147/66 08/15/18 15:00 97.7 18 97 Room Air 97.7 Intake and Output 08/15/18 07:00 Intake Total 640 ml Balance 640 ml Intake Oral 640 ml # Voids 9 Vitals Signs Vitals VS - Last 72 Hours, by Label Date Time Temp Pulse Resp B/P (MAP) Pulse Ox O2 Delivery O2 Flow Rate FiO2 08/15/18 16:39 59 147/66 08/15/18 15:00 97.7 59 18 147/66 (93) 97 Room Air 97.7 08/15/18 12:11 79 162/69 (100) 08/15/18 12:10 81 152/69 (96) 08/15/18 11:58 98 Room Air 08/15/18 11:00 98.2 73 18 125/35 (65) 98 Room Air 98.2 08/15/18 09:19 66 134/59 08/15/18 09:18 66 134/59 08/15/18 08:00 Room Air 08/15/18 07:10 97.7 66 18 134/59 (84) 93 Room Air 97.7 08/15/18 06:00 97 Room Air 08/15/18 06:00 97 Room Air 08/15/18 03:00 97.4 63 18 129/45 (73) 95 Room Air 97.4 08/15/18 00:48 16 08/14/18 23:00 97.4 66 18 150/57 (88) 95 Room Air 97.4 08/14/18 20:48 16 97 Room Air 08/14/18 20:00 Room Air 08/14/18 19:32 97 Room Air 08/14/18 19:31 97 Room Air 08/14/18 19:00 97.4 62 18 170/65 (100) 96 Room Air 97.4 08/14/18 17:51 Room Air 08/14/18 17:17 69 115/56 08/14/18 15:00 98.4 69 18 115/56 (75) 96 Room Air 98.4 08/14/18 13:51 17 Room Air 08/14/18 12:49 95 Room Air 08/14/18 11:00 98.1 78 18 145/81 (102) 98 Room Air 98.1 08/14/18 09:22 17 Room Air 08/14/18 09:19 71 129/57 08/14/18 08:00 Room Air 08/14/18 07:00 97.9 71 18 129/57 (81) 98 Room Air 97.9 Laboratory Laboratory Laboratory Tests Test 08/15/18 02:40 White Blood Count 6.0 x10^3/uL (4.0-11.0) Red Blood Count 3.59 x10^6/uL (3.50-5.40) Hemoglobin 11.0 g/dL (12.0-15.5) Hematocrit 33.2 % (36.0-47.0) Mean Corpuscular Volume 93 fL (79-100) Mean Corpuscular Hemoglobin 31 pg (25-35) Mean Corpuscular Hemoglobin Concent 33 g/dL (31-37) Red Cell Distribution Width 14.9 % (11.5-14.5) Platelet Count 306 x10^3/uL (140-400) Neutrophils (%) (Auto) 52 % (31-73) Lymphocytes (%) (Auto) 37 % (24-48) Monocytes (%) (Auto) 9 % (0-9) Eosinophils (%) (Auto) 2 % (0-3) Basophils (%) (Auto) 0 % (0-3) Neutrophils # (Auto) 3.1 x10^3uL (1.8-7.7) Lymphocytes # (Auto) 2.2 x10^3/uL (1.0-4.8) Monocytes # (Auto) 0.6 x10^3/uL (0.0-1.1) Eosinophils # (Auto) 0.1 x10^3/uL (0.0-0.7) Basophils # (Auto) 0.0 x10^3/uL (0.0-0.2) Sodium Level 134 mmol/L (136-145) Potassium Level 3.6 mmol/L (3.5-5.1) Chloride Level 95 mmol/L (98-107) Carbon Dioxide Level 32 mmol/L (21-32) Anion Gap 7 (6-14) Blood Urea Nitrogen 31 mg/dL (7-20) Creatinine 1.1 mg/dL (0.6-1.0) Estimated GFR (Cockcroft-Gault) 48.8 Glucose Level 96 mg/dL (70-99) Calcium Level 8.3 mg/dL (8.5-10.1) Magnesium Level 1.9 mg/dL (1.8-2.4) Medication Medications Current Medications Lorazepam (Ativan) 0.5 mg QID PO Last administered on 08/15/18at 16:38; Start at 13:00 Comment Review of Relevant I have reviewed the following items dina (where applicable) has been applied. KELSEY GUTIERRES MD Aug 15, 2018 17:03
[2018-08-15] MEDS ORDERED: VITA400C36 PO (17:04)
[2018-08-15] MEDS: ZOLPIDEM 5 MG TABLET. PO SCH (20:39)
[2018-08-15] MEDS: MIRTAZAPINE 15 MG TABLET PO SCH (20:40)
[2018-08-15] MEDS: LIDOCAINE (700MG/PATCH) PATCH. TD SCH (20:41)
[2018-08-16 02:54] VITALS: BP 127/67
[2018-08-16 04:29] LABS: BASO % 0 % (0-3); EOS # 0.1 x10^3/uL (0.0-0.7); EOS % 2 % (0-3); HEMATOCRIT 36.9 % (36.0-47.0); LYMPH # 1.8 x10^3/uL (1.0-4.8); LYMPH % 34 % (24-48); MEAN CORPUSCULAR HEMOGLOBIN 30 pg (25-35); MEAN CORPUSCULAR HGB CONC 33 g/dL (31-37); MEAN CORPUSCULAR VOLUME 93 fL (79-100); MONO # 0.4 x10^3/uL (0.0-1.1); MONO % 8 % (0-9); NEUT % 55 % (31-73); PLATELET COUNT 319 x10^3/uL (140-400); RED BLOOD COUNT 3.97 x10^6/uL (3.50-5.40); RED CELL DISTRIBUTION WIDTH 15.2 % (11.5-14.5); WHITE BLOOD COUNT 5.4 x10^3/uL (4.0-11.0)
[2018-08-16 04:45] LABS: CALCIUM 8.6 mg/dL (8.5-10.1); CREATININE 1.1 mg/dL (0.6-1.0); GFR 48.8
[2018-08-16] MEDS: LEVOTHYROXINE 150 MCG TABLET PO SCH (06:11)
[2018-08-16] MEDS: ALBUTEROL SULFATE 2.5 MG/3 ML NEBU. NEB SCH ×2 (06:19→12:37)
[2018-08-16] MEDS: BUDESONIDE 0.5 MG/2 ML NEBU. NEB SCH (06:19)
[2018-08-16 07:05] VITALS: BP 151/49
[2018-08-16] MEDS: VITAMIN E 200 UNIT CAPSULE. PO SCH (08:59)
[2018-08-16] MEDS: ASPIRIN ENTERIC COATED 81 MG TABLET.DR. PO SCH (08:59)
[2018-08-16] MEDS: CARBIDOPA/LEVODOPA 25/100MG TABLET PO SCH (08:59)
[2018-08-16] MEDS: CARVEDILOL 12.5 MG TABLET. PO SCH (08:59)
[2018-08-16] MEDS: CHOLECALCIFEROL (VITAMIN D3) 5,000 UNIT CAPSULE PO SCH (08:59)
[2018-08-16] MEDS: LACTOBACILLUS RHAMNOSUS GG 1 CAPSULE. PO SCH (09:00)
[2018-08-16] MEDS: metFORMIN 500 MG TABLET PO SCH (09:00)
[2018-08-16] MEDS: PATCH REMOVAL. MC SCH (09:00)
[2018-08-16] MEDS: oxyCODONE ER 10 MG TAB.ER.12H PO SCH (09:00)
[2018-08-16] MEDS: PRIMIDONE 50 MG TABLET PO SCH (09:00)
[2018-08-16] MEDS: GABAPENTIN 300 MG CAPSULE. PO SCH (09:00)
[2018-08-16] MEDS: DULoxetine HCL 30 MG CAPSULE.DR PO SCH (09:00)
[2018-08-16] MEDS: PANTOPRAZOLE 40 MG TABLET.DR. PO SCH (09:00)
[2018-08-16] MEDS: FERROUS SULFATE 325 MG TABLET. PO SCH (09:00)
[2018-08-16] MEDS: FUROSEMIDE 40 MG TABLET. PO SCH (09:01)
[2018-08-16] MEDS: CALCIUM POLYCARBOPHIL 625 MG TABLET PO SCH (09:01)
[2018-08-16] MEDS: LORazepam 0.5 MG TABLET PO SCH ×2 (09:01→12:43)
[2018-08-16] MEDS: busPIRone 5 MG TABLET. PO SCH (09:01)
[2018-08-16] MEDS: METOCLOPRAMIDE 10 MG TABLET. PO SCH ×2 (09:01→12:43)
[2018-08-16] MEDS: CLOPIDOGREL BISULFATE 75 MG TABLET PO SCH (09:01)
[2018-08-16] MEDS: CYCLOBENZAPRINE 10 MG TABLET. PO SCH (09:01)
[2018-08-16] MEDS: DONEPEZIL HCL 10 MG TABLET. PO SCH (09:01)
[2018-08-16] MEDS: rOPINIRole 1 MG TABLET. PO SCH (09:01)
[2018-08-16] MEDS: MELOXICAM 7.5 MG TABLET PO SCH (09:01)
--- NOTE | 2018-08-16 10:09 | PDOC ---
PROGRESS NOTES History of Present Illness History of Present Illness ASSESSMENT AND PLAN: Stroke symptoms secondary to malignant hypertension. POSSIBLE TIA Hypertensive encephalopathy, acute, resolved morbid obesity There is improved aeration of the superior segment left lower lobe with persistent patchy interstitial changes which may reflect subsegmental atelectasis versus scarring versus continued resolution of infiltrate. 3 month follow-up chest CT may be of benefit to ensure complete resolution. cognitive decline sec to parkinson's disease 08/15. FELT LIGHTHEADED TODAY, WITH PT 08/16 had 4 BEAT RUN OF ECTOPY, Asymptomatic, ok to d/c home if ok with cardiology admitted. home meds, add Lasix 40 IV every day. Consult Neurology consult Cardiology. Full code. DVT prophylaxis, PT, OT, frequent labs, cardiac monitoring. 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 44 min pt exam, chart review, > 50% of time spent with exam, chart review, pt care coordination d/c planning Vitals Vitals Vital Signs Date Time Temp Pulse Resp B/P (MAP) Pulse Ox O2 Delivery O2 Flow Rate FiO2 08/16/18 09:01 67 151/49 08/16/18 08:00 Room Air 08/16/18 07:05 98.1 18 94 98.1 Physical Exam Physical Exam LUNGS: Clear to auscultation. ABDOMEN: Soft, positive bowel sounds. EXTREMITIES: Trace edema. SKIN: No rashes. ENDOCRINE: No thyromegaly. LYMPHATICS: No cervical nodes. HEMATOPOIETIC: No bruising. PSYCHIATRIC: She is depressed. NEUROLOGICAL: left-sided weakness and a slight facial droop General: Alert, Oriented X3, Cooperative, No acute distress, mild distress, Other (confused, encephalopathic) Heart: Regular rate (SR), Normal S1, Other (2/6 systolic murmur to LLS border) Lungs: Clear Abdomen: Normal bowel sounds, Soft, No tenderness Extremities: No clubbing, No cyanosis, No edema Skin: No breakdown, No significant lesion Labs LABS Laboratory Tests Test 08/16/18 03:25 White Blood Count 5.4 x10^3/uL (4.0-11.0) Red Blood Count 3.97 x10^6/uL (3.50-5.40) Hemoglobin 12.0 g/dL (12.0-15.5) Hematocrit 36.9 % (36.0-47.0) Mean Corpuscular Volume 93 fL (79-100) Mean Corpuscular Hemoglobin 30 pg (25-35) Mean Corpuscular Hemoglobin Concent 33 g/dL (31-37) Red Cell Distribution Width 15.2 % (11.5-14.5) Platelet Count 319 x10^3/uL (140-400) Neutrophils (%) (Auto) 55 % (31-73) Lymphocytes (%) (Auto) 34 % (24-48) Monocytes (%) (Auto) 8 % (0-9) Eosinophils (%) (Auto) 2 % (0-3) Basophils (%) (Auto) 0 % (0-3) Neutrophils # (Auto) 3.0 x10^3uL (1.8-7.7) Lymphocytes # (Auto) 1.8 x10^3/uL (1.0-4.8) Monocytes # (Auto) 0.4 x10^3/uL (0.0-1.1) Eosinophils # (Auto) 0.1 x10^3/uL (0.0-0.7) Basophils # (Auto) 0.0 x10^3/uL (0.0-0.2) Sodium Level 132 mmol/L (136-145) Potassium Level 4.0 mmol/L (3.5-5.1) Chloride Level 96 mmol/L (98-107) Carbon Dioxide Level 29 mmol/L (21-32) Anion Gap 7 (6-14) Blood Urea Nitrogen 27 mg/dL (7-20) Creatinine 1.1 mg/dL (0.6-1.0) Estimated GFR (Cockcroft-Gault) 48.8 Glucose Level 97 mg/dL (70-99) Calcium Level 8.6 mg/dL (8.5-10.1) Assessment and Plan Assessmemt and Plan Problems Medical Problems: (1) Anxiety Status: Acute (2) Confusion Status: Acute (3) Dehydration Status: Acute (4) Hypertension Status: Acute (5) TIA (transient ischemic attack) Status: Acute Comment Review of Relevant I have reviewed the following items dina (where applicable) has been applied. Labs Laboratory Tests Test 08/15/18 02:40 08/16/18 03:25 White Blood Count 6.0 x10^3/uL (4.0-11.0) 5.4 x10^3/uL (4.0-11.0) Red Blood Count 3.59 x10^6/uL (3.50-5.40) 3.97 x10^6/uL (3.50-5.40) Hemoglobin 11.0 g/dL (12.0-15.5) 12.0 g/dL (12.0-15.5) Hematocrit 33.2 % (36.0-47.0) 36.9 % (36.0-47.0) Mean Corpuscular Volume 93 fL (79-100) 93 fL (79-100) Mean Corpuscular Hemoglobin 31 pg (25-35) 30 pg (25-35) Mean Corpuscular Hemoglobin Concent 33 g/dL (31-37) 33 g/dL (31-37) Red Cell Distribution Width 14.9 % (11.5-14.5) 15.2 % (11.5-14.5) Platelet Count 306 x10^3/uL (140-400) 319 x10^3/uL (140-400) Neutrophils (%) (Auto) 52 % (31-73) 55 % (31-73) Lymphocytes (%) (Auto) 37 % (24-48) 34 % (24-48) Monocytes (%) (Auto) 9 % (0-9) 8 % (0-9) Eosinophils (%) (Auto) 2 % (0-3) 2 % (0-3) Basophils (%) (Auto) 0 % (0-3) 0 % (0-3) Neutrophils # (Auto) 3.1 x10^3uL (1.8-7.7) 3.0 x10^3uL (1.8-7.7) Lymphocytes # (Auto) 2.2 x10^3/uL (1.0-4.8) 1.8 x10^3/uL (1.0-4.8) Monocytes # (Auto) 0.6 x10^3/uL (0.0-1.1) 0.4 x10^3/uL (0.0-1.1) Eosinophils # (Auto) 0.1 x10^3/uL (0.0-0.7) 0.1 x10^3/uL (0.0-0.7) Basophils # (Auto) 0.0 x10^3/uL (0.0-0.2) 0.0 x10^3/uL (0.0-0.2) Sodium Level 134 mmol/L (136-145) 132 mmol/L (136-145) Potassium Level 3.6 mmol/L (3.5-5.1) 4.0 mmol/L (3.5-5.1) Chloride Level 95 mmol/L (98-107) 96 mmol/L (98-107) Carbon Dioxide Level 32 mmol/L (21-32) 29 mmol/L (21-32) Anion Gap 7 (6-14) 7 (6-14) Blood Urea Nitrogen 31 mg/dL (7-20) 27 mg/dL (7-20) Creatinine 1.1 mg/dL (0.6-1.0) 1.1 mg/dL (0.6-1.0) Estimated GFR (Cockcroft-Gault) 48.8 48.8 Glucose Level 96 mg/dL (70-99) 97 mg/dL (70-99) Calcium Level 8.3 mg/dL (8.5-10.1) 8.6 mg/dL (8.5-10.1) Magnesium Level 1.9 mg/dL (1.8-2.4) Laboratory Tests Test 08/16/18 03:25 White Blood Count 5.4 x10^3/uL (4.0-11.0) Red Blood Count 3.97 x10^6/uL (3.50-5.40) Hemoglobin 12.0 g/dL (12.0-15.5) Hematocrit 36.9 % (36.0-47.0) Mean Corpuscular Volume 93 fL (79-100) Mean Corpuscular Hemoglobin 30 pg (25-35) Mean Corpuscular Hemoglobin Concent 33 g/dL (31-37) Red Cell Distribution Width 15.2 % (11.5-14.5) Platelet Count 319 x10^3/uL (140-400) Neutrophils (%) (Auto) 55 % (31-73) Lymphocytes (%) (Auto) 34 % (24-48) Monocytes (%) (Auto) 8 % (0-9) Eosinophils (%) (Auto) 2 % (0-3) Basophils (%) (Auto) 0 % (0-3) Neutrophils # (Auto) 3.0 x10^3uL (1.8-7.7) Lymphocytes # (Auto) 1.8 x10^3/uL (1.0-4.8) Monocytes # (Auto) 0.4 x10^3/uL (0.0-1.1) Eosinophils # (Auto) 0.1 x10^3/uL (0.0-0.7) Basophils # (Auto) 0.0 x10^3/uL (0.0-0.2) Sodium Level 132 mmol/L (136-145) Potassium Level 4.0 mmol/L (3.5-5.1) Chloride Level 96 mmol/L (98-107) Carbon Dioxide Level 29 mmol/L (21-32) Anion Gap 7 (6-14) Blood Urea Nitrogen 27 mg/dL (7-20) Creatinine 1.1 mg/dL (0.6-1.0) Estimated GFR (Cockcroft-Gault) 48.8 Glucose Level 97 mg/dL (70-99) Calcium Level 8.6 mg/dL (8.5-10.1) Medications Current Medications Lorazepam (Ativan) 1 mg 1X ONCE IV Last administered on 08/12/18 14:22; Start 08/12/18 at 14:15; Stop 08/12/18 at 14:22; Status DC Furosemide (Lasix) 40 mg DAILY PO Last administered on 08/16/18 09:01; Start 08/12/18 at 17:00 Aspirin (Ecotrin) 81 mg DAILY PO Last administered on 08/16/18 08:59; Start at 09:00 Carbidopa/Levodopa (Sinemet 25/100) 2.5 tab BID PO Last administered on 08:59; Start 08/12/18 at 21:00 Carvedilol (Coreg) 12.5 mg BIDWMEALS PO Last administered on 08/13/18 08:10; Start 08/12/18 at 17:15; Stop 08/13/18 at 13:21; Status DC Clopidogrel Bisulfate (Plavix) 75 mg DAILYWBKFT PO Last administered on 09:01; Start 08/13/18 at 08:00 Cyclobenzaprine HCl (Flexeril) 10 mg TID PO Last administered on 08/16/18 09: 01; Start 08/12/18 at 21:00 Ferrous Sulfate (Feosol) 325 mg DAILY08 PO Last administered on 08/16/18 09:00 ; Start 08/13/18 at 08:00 Gabapentin (Neurontin) 300 mg TID PO Last administered on 08/16/18 09:00; Start 08/12/18 at 21:00 Lactobacillus Rhamnosus (Culturelle) 1 cap BID PO Last administered on 09:00; Start 08/12/18 at 21:00 Lorazepam (Ativan) 0.5 mg QID PO Last administered on 08/15/18 09:16; Start at 17:00; Stop 08/15/18 at 09:39; Status DC Metoclopramide HCl (Reglan) 10 mg PRN QID PRN PO NAUSEA Last administered on 12:36; Start 08/12/18 at 17:00; Stop 08/13/18 at 15:37; Status DC Oxycodone HCl (OxyCONTIN) 10 mg TID PO Last administered on 08/16/18 09:00; Start 08/12/18 at 21:00 Zolpidem Tartrate (Ambien) 5 mg QHS PO Last administered on 08/15/18at 20:39; Start 08/12/18 at 21:00 Non-Formulary Medication (Budesonide/ Formoterol Fumarate (Symbicort 80-4.5 Mcg Inhaler)) 2 puff BID IH ; Start 08/12/18 at 21:00; Status UNV Buspirone HCl (Buspar) 153 mg TID PO ; Start 08/12/18 at 17:15; Stop 08/12/18 at 21:21; Status DC Vitamin D (Vitamin D3) 5,000 unit DAILY PO Last administered on 08/16/18 08:59 ; Start 08/13/18 at 09:00 Diltiazem HCl (Cardizem 24hr Cd) 180 mg DAILY PO Last administered on 08/13/18 08:09; Start 08/13/18 at 09:00; Stop 08/13/18 at 18:02; Status DC Docusate Sodium (Colace) 100 mg PRN DAILY PRN PO STOOL SOFTNER; Start 08/12/18 at 18:00 Donepezil HCl (Aricept) 10 mg DAILY PO Last administered on 08/16/18 09:01; Start 08/13/18 at 09:00 Duloxetine HCl (Cymbalta) 60 mg BID PO Last administered on 08/16/18 09:00; Start 08/12/18 at 21:00 Pantoprazole Sodium (Protonix) 40 mg DAILYAC PO Last administered on 08/16/18 09:00; Start 08/13/18 at 07:30 Levothyroxine Sodium (Synthroid) 150 mcg DAILY06 PO Last administered on 06:11; Start 08/13/18 at 06:00 Lidocaine (Lidoderm) 1 patch QHS TD Last administered on 08/15/18 20:41; Start 08/12/18 at 21:00 Non-Formulary Medication (Melatonin ) 10 mg QHS PO ; Start 08/12/18 at 21:00; Stop 08/12/18 at 21:00; Status DC Meloxicam (Mobic) 7.5 mg DAILY PO Last administered on 08/16/18 09:01; Start 08/13/18 at 09:00 Metformin HCl (Glucophage) 500 mg BIDWMEALS PO Last administered on 08/16/18 09:00; Start 08/12/18 at 18:00 Calcium Polycarbophil (Fibercon) 625 mg BID PO Last administered on 08/16/18 09:01; Start 08/12/18 at 21:00 Mirtazapine (Remeron) 30 mg QHS PO Last administered on 08/15/18 20:40; Start 08/12/18 at 21:00 Primidone (Mysoline) 50 mg TID PO Last administered on 08/16/18 09:00; Start 08/12/18 at 21:00 Ropinirole HCl (Requip) 1 mg TID PO Last administered on 08/16/18 09:01; Start 08/12/18 at 21:00 Vitamin E 400 unit DAILY PO Last administered on 08/16/18 08:59; Start at 09:00 Miscellaneous (Lidoderm Patch Removal) 1 ea DAILY MC Last administered on 09:00; Start 08/13/18 at 09:00 Albuterol Sulfate (Ventolin Neb Soln) 2.5 mg Q6HRS NEB Last administered on 06:19; Start 08/12/18 at 18:00 Budesonide (Pulmicort) 0.5 mg RTBID NEB Last administered on 08/16/18 06:19; Start 08/12/18 at 20:00 Acetaminophen (Tylenol) 1,000 mg 1X ONCE PO Last administered on 08/12/18 18: 10; Start 08/12/18 at 18:15; Stop 08/12/18 at 18:16; Status DC Buspirone HCl (Buspar) 15 mg TID PO Last administered on 08/16/18 09:01; Start 08/12/18 at 21:30 Carvedilol (Coreg) 25 mg BIDWMEALS PO ; Start 08/13/18 at 17:00; Stop 08/13/18 at 18:02; Status DC Hydralazine HCl (Apresoline Inj) 10 mg PRN Q4HRS PRN IVP ELEVATED BP, SEE COMMENTS; Start 08/13/18 at 13:30 Metoclopramide HCl (Reglan) 10 mg QIDACHS PO Last administered on 08/16/18 09: 01; Start 08/13/18 at 16:30 Diltiazem HCl (Cardizem 24hr Cd) 240 mg DAILY PO Last administered on 09:01; Start 08/14/18 at 09:00 Carvedilol (Coreg) 12.5 mg BIDWMEALS PO Last administered on 08/16/18 08:59; Start 08/14/18 at 08:00 Lorazepam (Ativan) 0.5 mg QID PO Last administered on 08/16/18 09:01; Start at 13:00 Active Scripts Active Symbicort 80-4.5 Mcg Inhaler (Budesonide/Formoterol Fumarate) 10.2 Gm Hfa.aer.ad 2 Puff IH BID 30 Days Reglan (Metoclopramide Hcl) 10 Mg Tablet 1 Tab PO QID PRN Culturelle (Lactobacillus Rhamnosus Gg) 1 Each Cap.sprink 1 Cap PO BID Clopidogrel (Clopidogrel Bisulfate) 75 Mg Tablet 75 Mg PO DAILYWBKFT Reported Vitamin E (Vitamin E Mixed) 400 Unit Capsule 400 Unit PO DAILY Stool Softener (Docusate Sodium) 50 Mg Capsule 50 Mg PO PRN PRN Fiber (Methylcellulose) 500 Mg Tablet 500 Mg PO BID Mysoline (Primidone) 50 Mg Tablet 50 Mg PO TID Ferrous Sulfate 325 Mg Tablet 1 Tab PO DAILY Vitamin D3 (Cholecalciferol (Vitamin D3)) 5,000 Unit Tablet 1 Tab PO DAILY Melatonin 3 Mg Tablet 10 Mg PO QHS Buspirone Hcl 15 Mg Tablet 1 Tab PO TID Meloxicam 7.5 Mg Tablet 7.5 Mg PO DAILY Gabapentin (Gabapentin) 300 Mg Capsule 300 Mg PO TID Oxycontin (Oxycodone HCl) 10 Mg Tab.er.12h 10 Mg PO TID Cartia Xt (Diltiazem Hcl) 180 Mg Cap.er.24h 180 Mg PO DAILY Levothyroxine Sodium 150 Mcg Tablet 1 Tab PO DAILY07 Ropinirole Hcl 1 Mg Tablet 1 Mg PO TID Donepezil Hcl 10 Mg Tablet 1 Tab PO DAILY Lorazepam 1 Mg Tablet 0.5 Mg PO QID Duloxetine Hcl 60 Mg Capsule. 60 Mg PO BID Cyclobenzaprine Hcl 10 Mg Tablet 1 Tab PO TID Lidoderm (Lidocaine) 700 Mg Adh..patch 1 Patch TP HS Aspir 81 (Aspirin) 81 Mg Tablet.dr 1 Tab PO DAILY Carbidopa-Levodopa 25-100 Tab (Carbidopa/Levodopa) 1 Each Tablet 2.5 Tab PO Q3HR W/A Mirtazapine 30 Mg Tab.rapdis 30 Mg PO HS Zolpidem Tartrate 5 Mg Tablet 1 Tab PO QHS Coreg (Carvedilol) 12.5 Mg Tablet 1 Tab PO BID . Metformin Hcl 500 Mg Tablet 1 Tab PO BID Nexium Capsule (Esomeprazole Magnesium) 40 Mg Capsule. 40 Mg PO DAILY Vitals/I & O Vital Sign - Last 24 Hours 08/15/18 08/15/18 08/15/18 08/15/18 11:00 11:58 12:10 12:11 Temp 98.2 98.2 Pulse 73 81 79 Resp 18 B/P (MAP) 125/35 (65) 152/69 (96) 162/69 (100) Pulse Ox 98 98 O2 Delivery Room Air Room Air 08/15/18 08/15/18 08/15/18 08/15/18 15:00 16:39 19:00 19:28 Temp 97.7 97.7 97.7 97.7 Pulse 59 59 60 Resp 18 18 B/P (MAP) 147/66 (93) 147/66 132/67 (88) Pulse Ox 97 99 O2 Delivery Room Air Room Air Room Air 08/15/18 08/15/18 08/15/18 08/16/18 20:00 20:40 22:44 00:40 Temp 97.9 97.9 Pulse 64 Resp 16 18 16 B/P (MAP) 158/56 (90) Pulse Ox 99 94 O2 Delivery Room Air Room Air Room Air Room Air 08/16/18 08/16/18 08/16/18 08/16/18 02:54 07:05 08:00 08:59 Temp 97.8 98.1 97.8 98.1 Pulse 66 67 67 Resp 18 18 B/P (MAP) 127/67 (87) 151/49 (83) 151/49 Pulse Ox 94 94 O2 Delivery Room Air Room Air Room Air 08/16/18 09:01 Pulse 67 B/P (MAP) 151/49 Intake and Output 08/15/18 08/15/18 08/16/18 15:00 23:00 07:00 Intake Total 200 ml 200 ml 200 ml Balance 200 ml 200 ml 200 ml PITER BERMUDEZ MD Aug 16, 2018 10:09
[2018-08-16 11:28] VITALS: BP 121/56
--- NOTE | 2018-08-16 12:07 | PDOC3 ---
Discharge Summary Date of Admission: Aug 12, 2018 Date of Discharge: Aug 16, 2018 Follow-Up: 1-2 days Admitting Diagnosis comment: discharge dx Stroke symptoms secondary to malignant hypertension. POSSIBLE TIA Hypertensive encephalopathy, acute, resolved morbid obesity There is improved aeration of the superior segment left lower lobe with persistent patchy interstitial changes which may reflect subsegmental atelectasis versus scarring versus continued resolution of infiltrate. 3 month follow-up chest CT may be of benefit to ensure complete resolution. cognitive decline sec to parkinson's disease 08/15. FELT LIGHTHEADED TODAY, WITH PT 08/16 had 4 BEAT RUN OF ECTOPY, Asymptomatic, ok to d/c home if ok with cardiology admitted. home meds, Consult Neurology consult Cardiology. Full code. DVT prophylaxis, PT, OT, frequent labs, cardiac monitoring. iv hydralazine 10mg q 4 hrs prn bp support Follow-up two-view chest radiograph or CT chest, 3 months mag-ox 400 mg po bid poor candidate for half-way anticoagulation due to high fall risk PROGNOSIS: Guarded. 44 min pt exam, chart review, > 50% of time spent with exam, chart review, pt care coordination d/c planning Vitals Vitals Vital Signs Date Time Temp Pulse Resp B/P (MAP) Pulse Ox O2 Delivery O2 Flow Rate FiO2 08/16/18 09:01 67 151/49 08/16/18 08:00 Room Air 08/16/18 07:05 98.1 18 94 98.1 Physical Exam Physical Exam LUNGS: Clear to auscultation. ABDOMEN: Soft, positive bowel sounds. EXTREMITIES: Trace edema. SKIN: No rashes. ENDOCRINE: No thyromegaly. LYMPHATICS: No cervical nodes. HEMATOPOIETIC: No bruising. PSYCHIATRIC: She is depressed. NEUROLOGICAL: left-sided weakness and a slight facial droop General: Alert, Oriented X3, Cooperative, No acute distress, mild distress, Other (confused, encephalopathic) Heart: Regular rate (SR), Normal S1, Other (2/6 systolic murmur to LLS border) Lungs: Clear Abdomen: Normal bowel sounds, Soft, No tenderness Extremities: No clubbing, No cyanosis, No edema Skin: No breakdown, No significant lesion FINAL DIAGNOSIS Problems Medical Problems: (1) Anxiety Status: Acute (2) Confusion Status: Acute (3) Dehydration Status: Acute (4) Hypertension Status: Acute (5) TIA (transient ischemic attack) Status: Acute Brief Hospital Course Ms. Knowles is a 73 old [sex] who presented with [tia ] CONDITION AT DISCHARGE: Improved Discharge Medications Current Medications Lorazepam (Ativan) 1 mg 1X ONCE IV Last administered on 08/12/18 14:22; Start 08/12/18 at 14:15; Stop 08/12/18 at 14:22; Status DC Furosemide (Lasix) 40 mg DAILY PO Last administered on 08/16/18 09:01; Start 08/12/18 at 17:00 Aspirin (Ecotrin) 81 mg DAILY PO Last administered on 08/16/18 08:59; Start at 09:00 Carbidopa/Levodopa (Sinemet 25/100) 2.5 tab BID PO Last administered on 08:59; Start 08/12/18 at 21:00 Carvedilol (Coreg) 12.5 mg BIDWMEALS PO Last administered on 08/13/18 08:10; Start 08/12/18 at 17:15; Stop 08/13/18 at 13:21; Status DC Clopidogrel Bisulfate (Plavix) 75 mg DAILYWBKFT PO Last administered on 09:01; Start 08/13/18 at 08:00 Cyclobenzaprine HCl (Flexeril) 10 mg TID PO Last administered on 08/16/18 09: 01; Start 08/12/18 at 21:00 Ferrous Sulfate (Feosol) 325 mg DAILY08 PO Last administered on 08/16/18 09:00 ; Start 08/13/18 at 08:00 Gabapentin (Neurontin) 300 mg TID PO Last administered on 08/16/18 09:00; Start 08/12/18 at 21:00 Lactobacillus Rhamnosus (Culturelle) 1 cap BID PO Last administered on 09:00; Start 08/12/18 at 21:00 Lorazepam (Ativan) 0.5 mg QID PO Last administered on 08/15/18 09:16; Start at 17:00; Stop 08/15/18 at 09:39; Status DC Metoclopramide HCl (Reglan) 10 mg PRN QID PRN PO NAUSEA Last administered on 12:36; Start 08/12/18 at 17:00; Stop 08/13/18 at 15:37; Status DC Oxycodone HCl (OxyCONTIN) 10 mg TID PO Last administered on 08/16/18 09:00; Start 08/12/18 at 21:00 Zolpidem Tartrate (Ambien) 5 mg QHS PO Last administered on 08/15/18 20:39; Start 08/12/18 at 21:00 Non-Formulary Medication (Budesonide/ Formoterol Fumarate (Symbicort 80-4.5 Mcg Inhaler)) 2 puff BID IH ; Start 08/12/18 at 21:00; Status UNV Buspirone HCl (Buspar) 153 mg TID PO ; Start 08/12/18 at 17:15; Stop 08/12/18 at 21:21; Status DC Vitamin D (Vitamin D3) 5,000 unit DAILY PO Last administered on 08/16/18 08:59 ; Start 08/13/18 at 09:00 Diltiazem HCl (Cardizem 24hr Cd) 180 mg DAILY PO Last administered on 08/13/18 08:09; Start 08/13/18 at 09:00; Stop 08/13/18 at 18:02; Status DC Docusate Sodium (Colace) 100 mg PRN DAILY PRN PO STOOL SOFTNER; Start 08/12/18 at 18:00 Donepezil HCl (Aricept) 10 mg DAILY PO Last administered on 08/16/18 09:01; Start 08/13/18 at 09:00 Duloxetine HCl (Cymbalta) 60 mg BID PO Last administered on 08/16/18 09:00; Start 08/12/18 at 21:00 Pantoprazole Sodium (Protonix) 40 mg DAILYAC PO Last administered on 08/16/18 09:00; Start 08/13/18 at 07:30 Levothyroxine Sodium (Synthroid) 150 mcg DAILY06 PO Last administered on 06:11; Start 08/13/18 at 06:00 Lidocaine (Lidoderm) 1 patch QHS TD Last administered on 08/15/18 20:41; Start 08/12/18 at 21:00 Non-Formulary Medication (Melatonin ) 10 mg QHS PO ; Start 08/12/18 at 21:00; Stop 08/12/18 at 21:00; Status DC Meloxicam (Mobic) 7.5 mg DAILY PO Last administered on 08/16/18 09:01; Start 08/13/18 at 09:00 Metformin HCl (Glucophage) 500 mg BIDWMEALS PO Last administered on 08/16/18 09:00; Start 08/12/18 at 18:00 Calcium Polycarbophil (Fibercon) 625 mg BID PO Last administered on 08/16/18 09:01; Start 08/12/18 at 21:00 Mirtazapine (Remeron) 30 mg QHS PO Last administered on 08/15/18 20:40; Start 08/12/18 at 21:00 Primidone (Mysoline) 50 mg TID PO Last administered on 08/16/18 09:00; Start 08/12/18 at 21:00 Ropinirole HCl (Requip) 1 mg TID PO Last administered on 08/16/18 09:01; Start 08/12/18 at 21:00 Vitamin E 400 unit DAILY PO Last administered on 08/16/18 08:59; Start at 09:00 Miscellaneous (Lidoderm Patch Removal) 1 ea DAILY MC Last administered on 09:00; Start 08/13/18 at 09:00 Albuterol Sulfate (Ventolin Neb Soln) 2.5 mg Q6HRS NEB Last administered on 06:19; Start 08/12/18 at 18:00 Budesonide (Pulmicort) 0.5 mg RTBID NEB Last administered on 08/16/18 06:19; Start 08/12/18 at 20:00 Acetaminophen (Tylenol) 1,000 mg 1X ONCE PO Last administered on 08/12/18 18: 10; Start 08/12/18 at 18:15; Stop 08/12/18 at 18:16; Status DC Buspirone HCl (Buspar) 15 mg TID PO Last administered on 08/16/18 09:01; Start 08/12/18 at 21:30 Carvedilol (Coreg) 25 mg BIDWMEALS PO ; Start 08/13/18 at 17:00; Stop 08/13/18 at 18:02; Status DC Hydralazine HCl (Apresoline Inj) 10 mg PRN Q4HRS PRN IVP ELEVATED BP, SEE COMMENTS; Start 08/13/18 at 13:30 Metoclopramide HCl (Reglan) 10 mg QIDACHS PO Last administered on 08/16/18at 09: 01; Start 08/13/18 at 16:30 Diltiazem HCl (Cardizem 24hr Cd) 240 mg DAILY PO Last administered on at 09:01; Start 08/14/18 at 09:00 Carvedilol (Coreg) 12.5 mg BIDWMEALS PO Last administered on 08/16/18at 08:59; Start 08/14/18 at 08:00 Lorazepam (Ativan) 0.5 mg QID PO Last administered on 08/16/18at 09:01; Start at 13:00 Magnesium Oxide (Magnesium Oxide) 400 mg BID PO ; Start 08/16/18 at 12:30 Active Scripts Active Symbicort 80-4.5 Mcg Inhaler (Budesonide/Formoterol Fumarate) 10.2 Gm Hfa.aer.ad 2 Puff IH BID 30 Days Reglan (Metoclopramide Hcl) 10 Mg Tablet 1 Tab PO QID PRN Culturelle (Lactobacillus Rhamnosus Gg) 1 Each Cap.sprink 1 Cap PO BID Clopidogrel (Clopidogrel Bisulfate) 75 Mg Tablet 75 Mg PO DAILYWBKFT Reported Vitamin E (Vitamin E Mixed) 400 Unit Capsule 400 Unit PO DAILY Stool Softener (Docusate Sodium) 50 Mg Capsule 50 Mg PO PRN PRN Fiber (Methylcellulose) 500 Mg Tablet 500 Mg PO BID Mysoline (Primidone) 50 Mg Tablet 50 Mg PO TID Ferrous Sulfate 325 Mg Tablet 1 Tab PO DAILY Vitamin D3 (Cholecalciferol (Vitamin D3)) 5,000 Unit Tablet 1 Tab PO DAILY Melatonin 3 Mg Tablet 10 Mg PO QHS Buspirone Hcl 15 Mg Tablet 1 Tab PO TID Meloxicam 7.5 Mg Tablet 7.5 Mg PO DAILY Gabapentin (Gabapentin) 300 Mg Capsule 300 Mg PO TID Oxycontin (Oxycodone HCl) 10 Mg Tab.er.12h 10 Mg PO TID Cartia Xt (Diltiazem Hcl) 180 Mg Cap.er.24h 180 Mg PO DAILY Levothyroxine Sodium 150 Mcg Tablet 1 Tab PO DAILY07 Ropinirole Hcl 1 Mg Tablet 1 Mg PO TID Donepezil Hcl 10 Mg Tablet 1 Tab PO DAILY Lorazepam 1 Mg Tablet 0.5 Mg PO QID Duloxetine Hcl 60 Mg Capsule.dr 60 Mg PO BID Cyclobenzaprine Hcl 10 Mg Tablet 1 Tab PO TID Lidoderm (Lidocaine) 700 Mg Adh..patch 1 Patch TP HS Aspir 81 (Aspirin) 81 Mg Tablet.dr 1 Tab PO DAILY Carbidopa-Levodopa 25-100 Tab (Carbidopa/Levodopa) 1 Each Tablet 2.5 Tab PO Q3HR W/A Mirtazapine 30 Mg Tab.rapdis 30 Mg PO HS Zolpidem Tartrate 5 Mg Tablet 1 Tab PO QHS Coreg (Carvedilol) 12.5 Mg Tablet 1 Tab PO BID . Metformin Hcl 500 Mg Tablet 1 Tab PO BID Nexium Capsule (Esomeprazole Magnesium) 40 Mg Capsule.dr 40 Mg PO DAILY Vital Signs Vital Signs Date Time Temp Pulse Resp B/P (MAP) Pulse Ox O2 Delivery O2 Flow Rate FiO2 08/16/18 11:28 98.3 68 18 121/56 (77) 99 Room Air 98.3 Labs Laboratory Tests Test 08/15/18 02:40 08/16/18 03:25 White Blood Count 6.0 x10^3/uL (4.0-11.0) 5.4 x10^3/uL (4.0-11.0) Red Blood Count 3.59 x10^6/uL (3.50-5.40) 3.97 x10^6/uL (3.50-5.40) Hemoglobin 11.0 g/dL (12.0-15.5) 12.0 g/dL (12.0-15.5) Hematocrit 33.2 % (36.0-47.0) 36.9 % (36.0-47.0) Mean Corpuscular Volume 93 fL (79-100) 93 fL (79-100) Mean Corpuscular Hemoglobin 31 pg (25-35) 30 pg (25-35) Mean Corpuscular Hemoglobin Concent 33 g/dL (31-37) 33 g/dL (31-37) Red Cell Distribution Width 14.9 % (11.5-14.5) 15.2 % (11.5-14.5) Platelet Count 306 x10^3/uL (140-400) 319 x10^3/uL (140-400) Neutrophils (%) (Auto) 52 % (31-73) 55 % (31-73) Lymphocytes (%) (Auto) 37 % (24-48) 34 % (24-48) Monocytes (%) (Auto) 9 % (0-9) 8 % (0-9) Eosinophils (%) (Auto) 2 % (0-3) 2 % (0-3) Basophils (%) (Auto) 0 % (0-3) 0 % (0-3) Neutrophils # (Auto) 3.1 x10^3uL (1.8-7.7) 3.0 x10^3uL (1.8-7.7) Lymphocytes # (Auto) 2.2 x10^3/uL (1.0-4.8) 1.8 x10^3/uL (1.0-4.8) Monocytes # (Auto) 0.6 x10^3/uL (0.0-1.1) 0.4 x10^3/uL (0.0-1.1) Eosinophils # (Auto) 0.1 x10^3/uL (0.0-0.7) 0.1 x10^3/uL (0.0-0.7) Basophils # (Auto) 0.0 x10^3/uL (0.0-0.2) 0.0 x10^3/uL (0.0-0.2) Sodium Level 134 mmol/L (136-145) 132 mmol/L (136-145) Potassium Level 3.6 mmol/L (3.5-5.1) 4.0 mmol/L (3.5-5.1) Chloride Level 95 mmol/L (98-107) 96 mmol/L (98-107) Carbon Dioxide Level 32 mmol/L (21-32) 29 mmol/L (21-32) Anion Gap 7 (6-14) 7 (6-14) Blood Urea Nitrogen 31 mg/dL (7-20) 27 mg/dL (7-20) Creatinine 1.1 mg/dL (0.6-1.0) 1.1 mg/dL (0.6-1.0) Estimated GFR (Cockcroft-Gault) 48.8 48.8 Glucose Level 96 mg/dL (70-99) 97 mg/dL (70-99) Calcium Level 8.3 mg/dL (8.5-10.1) 8.6 mg/dL (8.5-10.1) Magnesium Level 1.9 mg/dL (1.8-2.4) Laboratory Tests Test 08/16/18 03:25 White Blood Count 5.4 x10^3/uL (4.0-11.0) Red Blood Count 3.97 x10^6/uL (3.50-5.40) Hemoglobin 12.0 g/dL (12.0-15.5) Hematocrit 36.9 % (36.0-47.0) Mean Corpuscular Volume 93 fL (79-100) Mean Corpuscular Hemoglobin 30 pg (25-35) Mean Corpuscular Hemoglobin Concent 33 g/dL (31-37) Red Cell Distribution Width 15.2 % (11.5-14.5) Platelet Count 319 x10^3/uL (140-400) Neutrophils (%) (Auto) 55 % (31-73) Lymphocytes (%) (Auto) 34 % (24-48) Monocytes (%) (Auto) 8 % (0-9) Eosinophils (%) (Auto) 2 % (0-3) Basophils (%) (Auto) 0 % (0-3) Neutrophils # (Auto) 3.0 x10^3uL (1.8-7.7) Lymphocytes # (Auto) 1.8 x10^3/uL (1.0-4.8) Monocytes # (Auto) 0.4 x10^3/uL (0.0-1.1) Eosinophils # (Auto) 0.1 x10^3/uL (0.0-0.7) Basophils # (Auto) 0.0 x10^3/uL (0.0-0.2) Sodium Level 132 mmol/L (136-145) Potassium Level 4.0 mmol/L (3.5-5.1) Chloride Level 96 mmol/L (98-107) Carbon Dioxide Level 29 mmol/L (21-32) Anion Gap 7 (6-14) Blood Urea Nitrogen 27 mg/dL (7-20) Creatinine 1.1 mg/dL (0.6-1.0) Estimated GFR (Cockcroft-Gault) 48.8 Glucose Level 97 mg/dL (70-99) Calcium Level 8.6 mg/dL (8.5-10.1) Allergies Allergies Coded Allergies Type Severity Reaction Last Updated Verified Sulfa (Sulfonamide Antibiotics) Allergy Intermediate hives 11/01/17 Yes dexamethasone Allergy Intermediate 11/01/17 Yes Disposition/Orders: D/C to Home, D/C to Home w/ HH Patient Instructions d/c planning 43 min PITER BERMUDEZ MD Aug 16, 2018 12:07
[2018-08-16] MEDS ORDERED: ALBU2.5V8 NEB (12:12)
[2018-08-16] MEDS ORDERED: MAGNESIUM OXIDE 400 MG TABLET PO SCH (12:30)
--- NOTE | 2018-08-16 14:53 | SNU/HH DC ---
DISCHARGE WITH HOME HEALTH DISCHARGE INFORMATION: Final Diagnosis: Problems Medical Problems: (1) Anxiety Status: Acute (2) Confusion Status: Acute (3) Dehydration Status: Acute (4) Hypertension Status: Acute (5) TIA (transient ischemic attack) Status: Acute Condition on Discharge: Stable CODE STATUS: Code Status: Full HOME HEALTH: Face to Face: I certify this patient is under my care and that I, or a nurse practitioner or physician's zoning assistant working with me, had a face to face encounter that meets the physician face to face encounter requirements with this patient on []. Medical Complications: Dementia, [facility] For: Assess & Educate Safety RN For Eval/Treatment: Yes Physical Therapy For: Evalulation/Treatment Occupational Therapy For: Evaluation/Treatment Speech Language Pathology For: Evaluation/Treatment Home Health Aide For: Self-care MANAGER DIVERSITY For: Community Resources Pt Meets Homebound Status: Unsteady balance w/ amb, POST DISCHARGE ORDERS: Activity Instructions for Disc: Activity as tolerated Weight Bearing Status after Di: As tolerated Bathing Instructions: No Tub Bath until see DIET AFTER DISCHARGE: ADA Wound/Incision Care: Other, see below CHECKS AFTER DISCHARGE: Checks after discharge: Check blood press - daily, Weigh Yourself Daily FOLLOW-UP: Follow up with: F/U with your PCP within one week. Follow Up With: Dr. Lanza on September 19 at 0845. [phone]. TREATMENT/EQUIPMENT ORDERS: Adaptive Equipment Issued: [place] CERTIFICATION STATEMENT: Certification Statement: Certification Statement: Based on the above finding, I certify that this patient is confined to the home and needs intermittent senior living care, physical therapy and/or speech therapy, or continues to need occupational therapy.~ This patient is under my care, and I have initiated the establishment of the plan of care.~ This patient will be followed by myself or a community physician who will periodically review the plan of care. Home Meds Active Scripts Albuterol Sulfate (Proair Hfa) 8.5 Gm Hfa.aer.ad, 2.5 MG NEB Q6HRS for cough for 10 Days, #1 INHALER Prov:PITER BERMUDEZ MD 08/16/18 Budesonide/Formoterol Fumarate (SYMBICORT 80-4.5 MCG INHALER) 10.2 Gm Hfa.aer.ad , 2 PUFF IH BID for COPD for 30 Days, #10.2 GM 5 Refills Prov:JUSTUS DE JESUS MD 07/26/18 Metoclopramide Hcl (REGLAN) 10 Mg Tablet, 1 TAB PO QID PRN for NAUSEA, #120 TAB Prov:SHERLEY BARBOUR MD 11/09/17 Lactobacillus Rhamnosus Gg (CULTURELLE) 1 Each Cap.sprink, 1 CAP PO BID, #60 CAP Prov:JENS AZAR MD 05/12/17 Clopidogrel Bisulfate (CLOPIDOGREL) 75 Mg Tablet, 75 MG PO DAILYWBKFT, #30 TAB 1 Refill Prov:RICHARD REESE MD 05/09/15 Reported Medications Vitamin E Mixed (VITAMIN E) 400 Unit Capsule, 400 UNIT PO DAILY for supplement, CAP 08/15/18 Docusate Sodium (STOOL SOFTENER) 50 Mg Capsule, 50 MG PO PRN PRN for CONSTIPATION, CAP 08/10/18 Methylcellulose (FIBER) 500 Mg Tablet, 500 MG PO BID for Constipation, TAB 08/10/18 Primidone (MYSOLINE) 50 Mg Tablet, 50 MG PO TID for Parkinson's, TAB 08/10/18 Ferrous Sulfate (FERROUS SULFATE) 325 Mg Tablet, 1 TAB PO DAILY for supplement, TAB 08/10/18 Cholecalciferol (Vitamin D3) (VITAMIN D3) 5,000 Unit Tablet, 1 TAB PO DAILY for supplement, TAB 08/10/18 Melatonin (MELATONIN) 3 Mg Tablet, 10 MG PO QHS for sleep, TAB 08/10/18 Buspirone Hcl (BUSPIRONE HCL) 15 Mg Tablet, 1 TAB PO TID for Anxiety/Depression , #60 TAB 07/24/18 Meloxicam (MELOXICAM) 7.5 Mg Tablet, 7.5 MG PO DAILY for Mascle pain, TAB 07/24/18 Gabapentin (GABAPENTIN ) 300 Mg Capsule, 300 MG PO TID for NEUROGENIC PAIN, CAP 07/24/18 Oxycodone HCl (Oxycontin) 10 Mg Tab.er.12h, 10 MG PO TID for Pain, TAB.SR 07/24/18 Diltiazem Hcl (CARTIA XT) 180 Mg Cap.er.24h, 180 MG PO DAILY for Afib, CAP.SR 07/24/18 Levothyroxine Sodium (LEVOTHYROXINE SODIUM) 150 Mcg Tablet, 1 TAB PO DAILY07, # 30 TAB 5 Refills 05/09/17 Ropinirole Hcl (ROPINIROLE HCL) 1 Mg Tablet, 1 MG PO TID, TAB 11/15/16 Donepezil Hcl (DONEPEZIL HCL) 10 Mg Tablet, 1 TAB PO DAILY, #90 TAB 1 Refill 08/15/16 Duloxetine Hcl (DULOXETINE HCL) 60 Mg Capsule.dr, 60 MG PO BID for Depression, CAP 08/15/16 Lidocaine (LIDODERM) 700 Mg Adh..patch, 1 PATCH TP HS for Back pain, #30 PATCH 1 Refill 06/02/16 Aspirin (ASPIR 81) 81 Mg Tablet.dr, 1 TAB PO DAILY, #30 TAB 5 Refills 06/02/16 Carbidopa/Levodopa (CARBIDOPA-LEVODOPA 25-100 TAB) 1 Each Tablet, 2.5 TAB PO Q3HR W/A for Parkinson 04/16/16 Mirtazapine (MIRTAZAPINE) 30 Mg Tab.rapdis, 30 MG PO HS, TAB 04/16/16 Carvedilol (COREG ) 12.5 Mg Tablet, 1 TAB PO BID for hypertension, #180 TAB 1 Refill . 10/13/15 Metformin Hcl (METFORMIN HCL) 500 Mg Tablet, 1 TAB PO BID for antidiabetic, #60 TAB 3 Refills 02/25/15 Esomeprazole Magnesium (NEXIUM CAPSULE) 40 Mg Capsule.dr, 40 MG PO DAILY for gastric upset 09/01/13 Discontinued Reported Medications Lorazepam (LORAZEPAM) 1 Mg Tablet, 0.5 MG PO QID for Anxiety, #90 TAB 08/15/16 Cyclobenzaprine Hcl (CYCLOBENZAPRINE HCL) 10 Mg Tablet, 1 TAB PO TID for MUscle spasm, #90 TAB 08/15/16 Zolpidem Tartrate (ZOLPIDEM TARTRATE) 5 Mg Tablet, 1 TAB PO QHS, #30 TAB 2 Refills 04/16/16 Vitamin E (VITAMIN E) 1,000 Unit Capsule, 400 UNIT PO DAILY for supplement, CAP 08/10/18 PITER BERMUDEZ MD Aug 16, 2018 14:53
== END 2018-08-16 14:40 | disposition home health service (06) | DRG 77 ==
LOC: ER 14:00 → 6 SOUTH 15:28
PROVIDERS: ADMIT Internal Medicine; ATTEND Internal Medicine
DX: I67.4 Hypertensive encephalopathy (principal); N17.0 Acute kidney failure with tubular necrosis; G45.9 Transient cerebral ischemic attack, unspecified; I42.9 Cardiomyopathy, unspecified; I69.354 Hemiplegia and hemiparesis following cerebral infarction affecting left non-dominant side; I16.0 Hypertensive urgency; N18.3 Chronic kidney disease, stage 3 (moderate); I12.9 Hypertensive chronic kidney disease with stage 1 through stage 4 chronic kidney disease, or unspecified chronic kidney disease; I25.10 Atherosclerotic heart disease of native coronary artery without angina pectoris; F41.9 Anxiety disorder, unspecified; F32.9 Major depressive disorder, single episode, unspecified; G89.29 Other chronic pain; E11.22 Type 2 diabetes mellitus with diabetic chronic kidney disease; G20 Parkinson's disease; Z96.653 Presence of artificial knee joint, bilateral; E86.0 Dehydration; E78.5 Hyperlipidemia, unspecified; I34.0 Nonrheumatic mitral (valve) insufficiency; J44.9 Chronic obstructive pulmonary disease, unspecified; H40.9 Unspecified glaucoma; E03.9 Hypothyroidism, unspecified; F03.90 Unspecified dementia, unspecified severity, without behavioral disturbance, psychotic disturbance, mood disturbance, and anxiety; I48.0 Paroxysmal atrial fibrillation; H57.02 Anisocoria; K21.9 Gastro-esophageal reflux disease without esophagitis; K58.9 Irritable bowel syndrome, unspecified; E66.01 Morbid (severe) obesity due to excess calories; G47.30 Sleep apnea, unspecified; Z79.82 Long term (current) use of aspirin; Z79.02 Long term (current) use of antithrombotics/antiplatelets; Z87.11 Personal history of peptic ulcer disease; Z90.710 Acquired absence of both cervix and uterus; Z95.5 Presence of coronary angioplasty implant and graft; Z88.2 Allergy status to sulfonamides; Z88.8 Allergy status to other drugs, medicaments and biological substances; Z68.33 Body mass index [BMI] 33.0-33.9, adult
CPT/HCPCS: 36415; 70450; 71045; 71250; 80048; 80053; 82962; 83735; 84484; 85025; 85610; 85730; 93005; 93306; 94640; 94760; 96374; J2060; J7613; J7626; J8597; 97110; 97116; 97530; 97535; 99285-25

== ENCOUNTER 2018-10-10 19:53 | Inpatient (IN) | payer MEDICARE ==
[~2018-10-10] VITALS: Ht 160 cm; Wt 81.4 kg
[~2018-10-10 19:53] MED LIST changes: +ALBU2.5V8 NEB; +VITA400C36 PO
[2018-10-10] MEDS ORDERED: IV NORMAL SALINE 1000ML BAG 1,000 ML IV ONE (20:15)
[2018-10-10] MEDS ORDERED: DIPHENOXYLATE/ATROPINE TABLET. PO ONE (20:15)
[2018-10-10] MEDS ORDERED: ONDANSETRON PF 4 MG/2 ML VIAL. IV ONE (20:15)
--- NOTE | 2018-10-10 20:41 | PHYS DOC ---
Past Medical History Past Medical History: Anxiety, CAD, CVA, Depression, Diabetes-Type II, DVT, Hypothyroid, MT, Other Additional Past Medical Histor: PARKINSON'S, GASTROPARESIS, CHRONIC BACK PAIN;factor V Past Surgical History: , Hysterectomy, Knee Replacement, Pacemaker, Tonsillectomy Additional Past Surgical Histo: CARDIAC STENT, BLADDER SX, BOWEL RESECTION, RIGHT SHOULDER SX, CATARACT SX Alcohol Use: None Drug Use: None Adult General Chief Complaint Chief Complaint: NAUSEA/VOMITING/DIARRHA HPI HPI 73-year-old female with multiple medical problems presents with a 2 week history of increased nausea and vomiting and "explosive" diarrhea. She states she has not been on any antibiotics recently. She did take a stool sample into her primary care physician this morning. According to the patient, she has become progressively weaker over the last several days and has been unable to get up and perform her activities of daily living as of today. She denies any fever chills or sweats. She denies any melena hematemesis or hematochezia. She states that today she's really been unable to tolerate much of anything liquid[] Review of Systems Review of Systems Constitutional: Denies fever or chills [] Eyes: Denies change in visual acuity, redness, or eye pain [] HENT: Denies nasal congestion or sore throat [] Respiratory: Denies cough or shortness of breath [] Cardiovascular: No additional information not addressed in HPI [] GI: Per history of present illness[] : Denies dysuria or hematuria [] Musculoskeletal: Denies back pain or joint pain [] Integument: Denies rash or skin lesions [] Neurologic: Denies headache, focal weakness or sensory changes [] Endocrine: Denies polyuria or polydipsia [] All other systems were reviewed and found to be within normal limits, except as documented in this note. Current Medications Current Medications Current Medications Medications (Trade) Dose Ordered Sig/Carlene Start Time Stop Time Status Last Admin Dose Admin Diphenoxylate HCl/ Atropine (Lomotil) 2 tab 1X ONCE 10/10/18 20:15 10/10/18 20:18 DC 10/10/18 22:14 2 TAB Morphine Sulfate (Morphine Sulfate) 4 mg PRN Q2HR PRN 10/10/18 22:45 10/11/18 22:44 Ondansetron HCl (Zofran) 4 mg PRN Q8HRS PRN 10/10/18 22:45 10/11/18 22:44 Sodium Chloride 1,000 ml @ 125 mls/hr Q8H 10/10/18 23:00 10/11/18 22:59 Allergies Allergies Allergies Coded Allergies Type Severity Reaction Last Updated Verified Sulfa (Sulfonamide Antibiotics) Allergy Intermediate hives 11/01/17 Yes dexamethasone Allergy Intermediate 11/01/17 Yes Physical Exam Physical Exam Constitutional: Frail, chronically ill appearing nontoxic. [] HENT: Normocephalic, atraumatic, bilateral external ears normal, tacky oropharynx, no oral exudates, nose normal. [] Eyes: PERRLA, EOMI, conjunctiva normal, no discharge. [] Neck: Normal range of motion, no tenderness, supple, no stridor. [] Cardiovascular:Heart rate regular rhythm, no murmur [] Lungs & Thorax: Bilateral breath sounds clear to auscultation [] Abdomen: Diminished bowel sounds in all 4 quadrants, soft, no tenderness, no ma sses, no pulsatile masses. [] Skin: Warm, dry, no erythema, no rash. [] Back: No tenderness, no CVA tenderness. [] Extremities: No tenderness, no cyanosis, no clubbing, ROM intact, no edema. [] Neurologic: Alert and oriented X 3, normal motor function, normal sensory function, no focal deficits noted. [] Psychologic: Depressed affect, tearful[] Current Patient Data Vital Signs Vital Signs Date Time Temp Pulse Resp B/P (MAP) Pulse Ox O2 Delivery O2 Flow Rate FiO2 10/10/18 19:53 98.7 60 16 182/79 (113) 97 Room Air 98.7 Lab Values Laboratory Tests Test 10/10/18 22:10 White Blood Count 8.0 x10^3/uL (4.0-11.0) Red Blood Count 3.68 x10^6/uL (3.50-5.40) Hemoglobin 11.7 g/dL (12.0-15.5) L Hematocrit 35.0 % (36.0-47.0) L Mean Corpuscular Volume 95 fL (79-100) Mean Corpuscular Hemoglobin 32 pg (25-35) Mean Corpuscular Hemoglobin Concent 33 g/dL (31-37) Red Cell Distribution Width 14.3 % (11.5-14.5) Platelet Count 326 x10^3/uL (140-400) Neutrophils (%) (Auto) 59 % (31-73) Lymphocytes (%) (Auto) 31 % (24-48) Monocytes (%) (Auto) 6 % (0-9) Eosinophils (%) (Auto) 3 % (0-3) Basophils (%) (Auto) 0 % (0-3) Neutrophils # (Auto) 4.7 x10^3uL (1.8-7.7) Lymphocytes # (Auto) 2.5 x10^3/uL (1.0-4.8) Monocytes # (Auto) 0.5 x10^3/uL (0.0-1.1) Eosinophils # (Auto) 0.2 x10^3/uL (0.0-0.7) Basophils # (Auto) 0.0 x10^3/uL (0.0-0.2) Sodium Level 133 mmol/L (136-145) L Potassium Level 3.8 mmol/L (3.5-5.1) Chloride Level 96 mmol/L (98-107) L Carbon Dioxide Level 31 mmol/L (21-32) Anion Gap 6 (6-14) Blood Urea Nitrogen 22 mg/dL (7-20) H Creatinine 1.0 mg/dL (0.6-1.0) Estimated GFR (Cockcroft-Gault) 54.5 BUN/Creatinine Ratio 22 (6-20) H Glucose Level 134 mg/dL (70-99) H Calcium Level 9.1 mg/dL (8.5-10.1) Total Bilirubin 0.4 mg/dL (0.2-1.0) Aspartate Amino Transferase (AST) 19 U/L (15-37) Alanine Aminotransferase (ALT) 14 U/L (14-59) Alkaline Phosphatase 123 U/L (46-116) H Troponin I Quantitative < 0.017 ng/mL (0.000-0.055) Total Protein 6.5 g/dL (6.4-8.2) Albumin 3.3 g/dL (3.4-5.0) L Albumin/Globulin Ratio 1.0 (1.0-1.7) Lipase 135 U/L (73-393) Laboratory Tests 6/6/19 22:10 Laboratory Tests 10/10/18 22:10 EKG EKG [] Interpretation Time: EKG: Normal sinus rhythm rate of [address]-T changes Radiology/Procedures Radiology/Procedures [] Impressions: STATUS: REG ERORD. PHYSICIAN: TOY DELGADILLO DO REASON: Low abdominal pain and vomiting diarrhea x 2 days PROCEDURE: KUB EXAM: Abdomen, single view. HISTORY: Pain. COMPARISON: None. FINDINGS: Frontal views of the abdomen are obtained. There are prominent air-filled loops of small and large bowel throughout the abdomen. There is no transition point to suggest obstruction. There is gas within the rectum. IMPRESSION: Nonspecific air-filled loops of bowel throughout the abdomen. There is no convincing obstruction. Course & Med Decision Making Course & Med Decision Making Pertinent Labs and Imaging studies reviewed. (See chart for details) [ED course: Evaluation reveals a 73-year-old female with nausea vomiting and diarrhea. She's not been eating or drinking or being able to get around and do her activities of daily living at home. She is a little clinically dehydrated here. She was given some IV fluids Lomotil and Zofran which did help her feel better. I spoke with the hospitalist agreed to accept her admission to the hospital for IV rehydration and nausea medicine.] Dragon Disclaimer Dragon Disclaimer This electronic medical record was generated, in whole or in part, using a voice recognition dictation system. Departure Departure Impression: Primary Impression: Abdominal pain Additional Impressions: Nausea and vomiting Generalized weakness Diarrhea Disposition: ADMITTED INPATIENT Admitting Physician: PAT Condition: IMPROVED Referrals: DB BAILEY MD (PCP) Problem Qualifiers Primary Impression: Abdominal pain Abdominal location: generalized Qualified Codes: R10.84 - Generalized abdominal pain Additional Impressions: Nausea and vomiting Vomiting type: unspecified Vomiting Intractability: intractable Qualified Codes: R11.2 - Nausea with vomiting, unspecified Diarrhea Diarrhea type: unspecified type Qualified Codes: R19.7 - Diarrhea, unspecified TOY DELGADILLO DO Oct 10, 2018 20:41
--- NOTE | 2018-10-10 21:17 | RAD ---
EXAM: Abdomen, single view. HISTORY: Pain. COMPARISON: None. FINDINGS: Frontal views of the abdomen are obtained. There are prominent air-filled loops of small and large bowel throughout the abdomen. There is no transition point to suggest obstruction. There is gas within the rectum. IMPRESSION: Nonspecific air-filled loops of bowel throughout the abdomen. There is no convincing obstruction. Electronically signed by: Luda Garcia MD (10/10/2018 9:15 PM) [employer]
[2018-10-10 22:20] LABS: BASO % 0 % (0-3); EOS # 0.2 x10^3/uL (0.0-0.7); EOS % 3 % (0-3); HEMOGLOBIN 11.7 g/dL (12.0-15.5); LYMPH # 2.5 x10^3/uL (1.0-4.8); LYMPH % 31 % (24-48); MEAN CORPUSCULAR HEMOGLOBIN 32 pg (25-35); MEAN CORPUSCULAR HGB CONC 33 g/dL (31-37); MEAN CORPUSCULAR VOLUME 95 fL (79-100); MONO # 0.5 x10^3/uL (0.0-1.1); MONO % 6 % (0-9); NEUT # 4.7 x10^3uL (1.8-7.7); NEUT % 59 % (31-73); PLATELET COUNT 326 x10^3/uL (140-400); RED BLOOD COUNT 3.68 x10^6/uL (3.50-5.40); RED CELL DISTRIBUTION WIDTH 14.3 % (11.5-14.5)
[2018-10-10 22:31] LABS: CALCIUM 9.1 mg/dL (8.5-10.1); GFR 54.5; POTASSIUM 3.8 mmol/L (3.5-5.1)
[2018-10-10 22:36] LABS: ALBUMIN 3.3 g/dL (3.4-5.0); TOTAL BILIRUBIN 0.4 mg/dL (0.2-1.0); TOTAL PROTEIN 6.5 g/dL (6.4-8.2)
[2018-10-10] MEDS ORDERED: ONDANSETRON PF 4 MG/2 ML VIAL. IV PRN (22:45)
[2018-10-10] MEDS ORDERED: MORPHINE SULFATE 4 MG/ML VIAL. IV PRN (22:45)
[2018-10-11 00:02] VITALS: BP 139/47
[2018-10-11] MEDS ORDERED: FURO20TA3 PO (00:50)
[2018-10-11] MEDS ORDERED: METH-38 PO (00:50)
[2018-10-11] MEDS ORDERED: LORA0.5T PO (00:50)
[2018-10-11] MEDS ORDERED: CARV25TA PO (00:50)
[2018-10-11] MEDS ORDERED: MELO7.5T29 PO (00:50)
[2018-10-11] MEDS ORDERED: LACT1CAP6 PO (00:50)
[2018-10-11] MEDS ORDERED: CYCL10TA2 PO (00:50)
[2018-10-11] MEDS ORDERED: METO10TA81 PO (00:50)
[2018-10-11] MEDS ORDERED: CLOP75TA PO (00:50)
[2018-10-11] MEDS ORDERED: POTA99TA3 PO (00:50)
[2018-10-11] MEDS ORDERED: LISI-334 PO (00:50)
[2018-10-11] MEDS ORDERED: HYDR-2868 PO (00:50)
[2018-10-11] MEDS ORDERED: ZOLP5TAB PO (00:50)
[2018-10-11] MEDS ORDERED: FERR325T14 PO (00:50)
[2018-10-11] MEDS: IV NORMAL SALINE 1000ML BAG 1,000 ML IV SCH ×2 (01:22→07:42)
[2018-10-11] MEDS: GABAPENTIN 300 MG CAPSULE. PO SCH ×2 (02:10→10:13)
[2018-10-11] MEDS: LORazepam 0.5 MG TABLET PO SCH ×3 (02:10→13:00)
[2018-10-11] MEDS: CYCLOBENZAPRINE 10 MG TABLET. PO SCH ×2 (02:10→10:13)
[2018-10-11] MEDS: METOCLOPRAMIDE 10 MG TABLET. PO SCH ×3 (02:11→13:00)
[2018-10-11] MEDS: oxyCODONE ER 10 MG TAB.ER.12H PO SCH ×2 (02:12→10:12)
[2018-10-11] MEDS ORDERED: LIDOCAINE (700MG/PATCH) PATCH. TD SCH (02:15)
[2018-10-11] MEDS ORDERED: ZOLPIDEM 5 MG TABLET. PO SCH (02:15)
[2018-10-11] MEDS ORDERED: DONEPEZIL HCL 10 MG TABLET. PO SCH (02:15)
[2018-10-11] MEDS ORDERED: CLOPIDOGREL BISULFATE 75 MG TABLET PO SCH (02:15)
[2018-10-11] MEDS ORDERED: MIRTAZAPINE 15 MG TABLET PO SCH (02:15)
[2018-10-11] MEDS: rOPINIRole 1 MG TABLET. PO SCH ×2 (02:29→10:13)
[2018-10-11] MEDS: DULoxetine HCL 30 MG CAPSULE.DR PO SCH ×2 (02:30→10:14)
[2018-10-11] MEDS: CARBIDOPA/LEVODOPA 25/100MG TABLET PO SCH ×2 (02:31→10:09)
[2018-10-11] MEDS: PRIMIDONE 50 MG TABLET PO SCH ×2 (02:32→10:09)
[2018-10-11] MEDS: busPIRone 5 MG TABLET. PO SCH ×2 (02:35→10:10)
[2018-10-11 03:00] VITALS: BP 133/51
[2018-10-11 04:12] LABS: BILIRUBIN,URINE NEGATIVE (NEG); CLARITY,URINE CLEAR; COLOR,URINE YELLOW; NITRITE,URINE NEGATIVE (NEG); PROTEIN,URINE NEGATIVE (NEG-TRACE); UROBILINOGEN,URINE 0.2 mg/dL (0.2 mg/dL)
[2018-10-11 04:28] LABS: BACTERIA,URINE 0 /HPF (0-FEW); RBC,URINE 0 /HPF (0-2); SQUAMOUS EPITHELIAL CELL,UR MOD /LPF; WBC,URINE OCC /HPF (0-4)
--- NOTE | 2018-10-11 05:51 | EKG ---
[facility] [address] [place] [address] Test Date: 2018-10-10 Test Time: 20:34:41 Pat Name: LAYLA ROSSI Department: Room: Gender: F [employer]: : 1945 Requested By: TOY DELGADILLO Order Number: [id number] Reading MD: Measurements Intervals [place] Rate: 62 P: 64 ME: 156 QRS: -17 QRSD: 92 T: 38 QT: 420 QTc: 432 Interpretive Statements SINUS RHYTHM LEFTWARD AXIS QRS(T) CONTOUR ABNORMALITY CONSISTENT WITH INFERIOR INFARCT PROBABLY OLD ABNORMAL ECG No previous ECG available for comparison
[2018-10-11] MEDS ORDERED: LEVOTHYROXINE 150 MCG TABLET PO SCH (06:00)
[2018-10-11 07:00] VITALS: BP 153/53
[2018-10-11] MEDS ORDERED: PANTOPRAZOLE 40 MG TABLET.DR. PO SCH (07:30)
[2018-10-11] MEDS ORDERED: CARVEDILOL 12.5 MG TABLET. PO SCH (08:00)
[2018-10-11] MEDS ORDERED: metFORMIN 500 MG TABLET PO SCH (08:00)
[2018-10-11] MEDS ORDERED: LISINOPRIL 20 MG TABLET PO SCH (09:00)
[2018-10-11] MEDS ORDERED: ASPIRIN ENTERIC COATED 81 MG TABLET.DR. PO SCH (09:00)
[2018-10-11] MEDS ORDERED: METHOCARBAMOL PO SCH (09:00)
[2018-10-11] MEDS ORDERED: CHOLECALCIFEROL (VITAMIN D3) 5,000 UNIT CAPSULE PO SCH (09:00)
[2018-10-11] MEDS ORDERED: DOCUSATE SODIUM 100 MG CAPSULE. PO PRN (09:00)
[2018-10-11] MEDS: FUROSEMIDE 20 MG TABLET PO SCH ×2 (09:00→10:19)
[2018-10-11] MEDS ORDERED: FERROUS SULFATE 325 MG TABLET. PO SCH (09:00)
[2018-10-11] MEDS ORDERED: MELOXICAM 7.5 MG TABLET PO SCH (09:00)
[2018-10-11] MEDS ORDERED: hydrALAZINE 25 MG TABLET PO SCH (09:00)
[2018-10-11] MEDS ORDERED: VITAMIN E 200 UNIT CAPSULE. PO SCH (09:00)
[2018-10-11] MEDS ORDERED: PSYLLIUM HUSK (SUGAR FREE) 1 PKT PACKET PO SCH (09:00)
[2018-10-11] MEDS ORDERED: LACTOBACILLUS RHAMNOSUS GG 1 CAPSULE. PO SCH (09:00)
[2018-10-11 11:00] VITALS: BP 142/73
--- NOTE | 2018-10-11 11:21 | PDOC1 ---
History and Physical Date of Admission Date of Admission DATE: 10/11/18 TIME: 11:18 Identification/Chief Complaint Chief Complaint Nausea, vomiting Source Source: Caregiver, Chart review, Patient History of Present Illness History of Present Illness 73-year-old white female came from home, came in for an intractable nausea vomiting as initial working diagnosis with mild elyte Abnormalities namely mild hyponatremia 133 but normal creatinine and normal potassium. KUB shows normal gas pattern. I'm upgrading to a regular diet. She claims her BP was low on admission. She feels better. Has not ambulated. We'll try regular diet, PT OT. If BP better and able to tolerate diet home later with no change in meds She is on insulin and other 30 medications, she has polypharmacy. She follows with her PCP Past Medical History Cardiovascular: CAD, HTN CENTRAL NERVOUS SYSTEM: CVA GI: Constipation Psych: Anxiety, Other Musculoskeletal: low back pain Renal/: Urinary Incontinence Endocrine: Diabetes, Hypothyroidism Past Surgical History Past Surgical History: Cataract Removal, , Total knee replacement, Hysterectomy, Colon Resection, Other Family History Family History: No Significant, Diabetes, Other Social History Smoke: No ALCOHOL: none Drugs: None Current Problem List Problem List Problems Medical Problems: (1) Abdominal pain Status: Acute (2) Diarrhea Status: Acute (3) Generalized weakness Status: Acute Current Medications Current Medications Current Medications Sodium Chloride 1,000 ml @ 1,000 mls/hr 1X ONCE IV Last administered on 10/10/18at 22:13; Start 10/10/18 at 20:15; Stop 10/10/18 at 21:14; Status DC Ondansetron HCl (Zofran) 4 mg 1X ONCE IV Last administered on 10/10/18at 22:14; Start 10/10/18 at 20:15; Stop 10/10/18 at 20:18; Status DC Diphenoxylate HCl/ Atropine (Lomotil) 2 tab 1X ONCE PO Last administered on 10/10/18at 22:14; Start 10/10/18 at 20:15; Stop 10/10/18 at 20:18; Status DC Ondansetron HCl (Zofran) 4 mg PRN Q8HRS PRN IV NAUSEA/VOMITING 1ST CHOICE; Start 10/10/18 at 22:45; Stop 10/11/18 at 22:44 Morphine Sulfate (Morphine Sulfate) 4 mg PRN Q2HR PRN IV SEVERE PAIN; Start at 22:45; Stop 10/11/18 at 22:44 Sodium Chloride 1,000 ml @ 125 mls/hr Q8H IV Last administered on 10/11/18 07:42; Start 10/10/18 at 23:00; Stop 10/11/18 at 22:59 Aspirin (Ecotrin) 81 mg DAILY PO Last administered on 10/11/18 10:10; Start 10/11/18 at 09:00 Carbidopa/Levodopa (Sinemet 25/100) 3 tab TID PO Last administered on 10/11/18 10:09; Start 10/11/18 at 02:15 Clopidogrel Bisulfate (Plavix) 75 mg HS PO Last administered on 10/11/18 02:10; Start 10/11/18 at 02:15 Cyclobenzaprine HCl (Flexeril) 10 mg TID PO Last administered on 10/11/18 10:13; Start 10/11/18 at 02:15 Ferrous Sulfate (Feosol) 325 mg DAILY PO Last administered on 10/11/18 10:13; Start 10/11/18 at 09:00 Furosemide (Lasix) 20 mg DAILY PO ; Start 10/11/18 at 09:00 Gabapentin (Neurontin) 300 mg TID PO Last administered on 10/11/18 10:13; Start 10/11/18 at 02:15 Lisinopril (Prinivil) 20 mg DAILY PO Last administered on 10/11/18 10:27; Start 10/11/18 at 09:00 Lorazepam (Ativan) 0.5 mg QID PO Last administered on 10/11/18 10:10; Start 10/11/18 at 02:15 Metoclopramide HCl (Reglan) 10 mg QID PO Last administered on 10/11/18 10:13; Start 10/11/18 at 02:15 Oxycodone HCl (OxyCONTIN) 10 mg TID PO Last administered on 10/11/18 10:12; Start 10/11/18 at 02:15 Zolpidem Tartrate (Ambien) 5 mg HS PO Last administered on 10/11/18 02:22; Start 10/11/18 at 02:15 Buspirone HCl (Buspar) 15 mg TID PO Last administered on 10/11/18 10:10; Start 10/11/18 at 02:15 Carvedilol (Coreg) 25 mg BIDWMEALS PO Last administered on 10/11/18 10:11; Start 10/11/18 at 08:00 Vitamin D (Vitamin D3) 5,000 unit DAILY PO Last administered on 10/11/18 10:11; Start 10/11/18 at 09:00 Diltiazem HCl (Cardizem 24hr Cd) 180 mg DAILY PO Last administered on 10/11/18 10:26; Start 10/11/18 at 09:00 Docusate Sodium (Colace) 100 mg PRN DAILY PRN PO CONSTIPATION 1ST CHOICE; Start 10/11/18 at 09:00 Donepezil HCl (Aricept) 10 mg QHS PO Last administered on 10/11/18 02:30; Sta rt 10/11/18 at 02:15 Duloxetine HCl (Cymbalta) 60 mg BID PO Last administered on 10/11/18 10:14; Start 10/11/18 at 02:15 Pantoprazole Sodium (Protonix) 40 mg DAILYAC PO Last administered on 10/11/18 07:39; Start 10/11/18 at 07:30 Hydralazine HCl (Apresoline) 25 mg DAILY PO Last administered on 10/11/18 10:27; Start 10/11/18 at 09:00 Lactobacillus Rhamnosus (Culturelle) 1 cap DAILY PO Last administered on 10/11/18 10:11; Start 10/11/18 at 09:00 Levothyroxine Sodium (Synthroid) 150 mcg DAILY06 PO Last administered on 10/11/18 07:39; Start 10/11/18 at 06:00 Lidocaine (Lidoderm) 1 patch QHS TD Last administered on 10/11/18 02:31; Start 10/11/18 at 02:15 Non-Formulary Medication (Melatonin ) 10 mg QHS PO ; Start 10/11/18 at 21:00; Status UNV Meloxicam (Mobic) 7.5 mg DAILY PO Last administered on 10/11/18 10:15; Start 10/11/18 at 09:00 Metformin HCl (Glucophage) 500 mg BIDWMEALS PO Last administered on 10/11/18at 10:13; Start 10/11/18 at 08:00 Non-Formulary Medication (Methocarbamol (Robaxin-750)) 1 tab TID PO ; Start 10/11/18 at 09:00; Status UNV Psyllium Hydrophilic Mucilloid (Metamucil Fiber Packet) 1 pkt BID PO Last administered on 10/11/18at 10:10; Start 10/11/18 at 09:00 Mirtazapine (Remeron) 30 mg QHS PO Last administered on 10/11/18at 02:30; Start 10/11/18 at 02:15 Non-Formulary Medication (Potassium Gluconate ) 99 mg DAILYWSUP PO ; Start 10/11/18 at 17:00; Status UNV Primidone (Mysoline) 50 mg TID PO Last administered on 10/11/18at 10:09; Start 10/11/18 at 02:30 Ropinirole HCl (Requip) 1 mg TID PO Last administered on 10/11/18at 10:13; Start 10/11/18 at 02:30 Vitamin E 400 unit DAILY PO Last administered on 10/11/18at 10:09; Start 10/11/18 at 09:00 Active Scripts Active Symbicort 80-4.5 Mcg Inhaler (Budesonide/Formoterol Fumarate) 10.2 Gm Hfa.aer.ad 2 Puff IH BID 30 Days Reported Hydralazine Hcl 25 Mg Tablet 1 Tab PO DAILY Lisinopril 20 Mg Tablet 1 Tab PO DAILY Potassium Gluconate 99 Mg Tablet 99 Mg PO DAILYWSUP Robaxin-750 (Methocarbamol) 750 Mg Tablet 1 Tab PO TID Furosemide 20 Mg Tablet 1 Tab PO DAILY Meloxicam 7.5 Mg Tablet 1 Tab PO DAILY Probiotic (Lactobacillus Acidophilus) 1 Each Capsule 1 Each PO DAILY Ambien (Zolpidem Tartrate) 5 Mg Tablet 5 Mg PO HS Cyclobenzaprine Hcl 10 Mg Tablet 1 Tab PO TID Ferrous Sulfate 325 Mg Tablet 1 Tab PO DAILY Lorazepam 0.5 Mg Tablet 0.5 Mg PO QID Coreg (Carvedilol) 25 Mg Tablet 25 Mg PO BIDWMEALS Clopidogrel (Clopidogrel Bisulfate) 75 Mg Tablet 75 Mg PO HS Reglan (Metoclopramide Hcl) 10 Mg Tablet 1 Tab PO QID Vitamin E (Vitamin E Mixed) 400 Unit Capsule 400 Unit PO DAILY Stool Softener (Docusate Sodium) 50 Mg Capsule 50 Mg PO PRN PRN Fiber (Methylcellulose) 500 Mg Tablet 500 Mg PO BID Mysoline (Primidone) 50 Mg Tablet 50 Mg PO TID Vitamin D3 (Cholecalciferol (Vitamin D3)) 5,000 Unit Tablet 1 Tab PO DAILY Melatonin 3 Mg Tablet 10 Mg PO QHS Buspirone Hcl 15 Mg Tablet 1 Tab PO TID Gabapentin (Gabapentin) 300 Mg Capsule 300 Mg PO TID Oxycontin (Oxycodone HCl) 10 Mg Tab.er.12h 10 Mg PO TID Cartia Xt (Diltiazem Hcl) 180 Mg Cap.er.24h 180 Mg PO DAILY Levothyroxine Sodium 150 Mcg Tablet 1 Tab PO DAILY07 Ropinirole Hcl 1 Mg Tablet 1 Mg PO TID Donepezil Hcl 10 Mg Tablet 1 Tab PO HS Duloxetine Hcl 60 Mg Capsule.dr 60 Mg PO BID Lidoderm (Lidocaine) 700 Mg Adh..patch 1 Patch TP HS Aspir 81 (Aspirin) 81 Mg Tablet.dr 1 Tab PO DAILY Carbidopa-Levodopa 25-100 Tab (Carbidopa/Levodopa) 1 Each Tablet 3 Tab PO TID Mirtazapine 30 Mg Tab.rapdis 30 Mg PO HS Metformin Hcl 500 Mg Tablet 1 Tab PO BID Nexium Capsule (Esomeprazole Magnesium) 40 Mg Capsule.dr 40 Mg PO DAILY Allergies Allergies: Coded Allergies: Sulfa (Sulfonamide Antibiotics) (Verified Allergy, Intermediate, hives, 11/01/17) dexamethasone (Verified Allergy, Intermediate, 11/01/17) ROS Review of System A 14 point ROS was completed with the following noted as positive: Other systems reviewed and negative. \CONSTITUTIONAL: No fever or chills EYES: No recent changes SKIN: No rash or itching CARDIOVASCULAR: No chest pain, syncope, palpitations, or edema RESPIRATORY: No SOB or cough GASTROINTESTINAL: NEUROLOGICAL: No headaches or weakness ENDOCRINE: No cold or heat intolerance GENITOURINARY: No urgency or frequency of urination MUSCULOSKELETAL: No back pain or joint pain LYMPHATICS: No enlarged lymph nodes PSYCHIATRIC: No anxiety or depression Physical Exam General: Alert, Oriented X3, Cooperative, No acute distress HEENT: Atraumatic, PERRLA, EOMI Lungs: Clear to auscultation, Normal air movement Heart: S1S2, RRR, no thrills, no rubs, no gallops, no murmurs Cardiovascular: S1, S2 Breasts: Normal, Rt breast nml w/o mass, Lt breast nml w/o mass, Nipples normal Abdomen: Normal bowel sounds, Soft, No tenderness, No hepatosplenomegaly, No masses Rectal Exam: not examined PELVIC: Nml ext genitalia Extremities: No clubbing, No cyanosis, No edema, Normal pulses, No tenderness/swelling Skin: No rashes, No breakdown, No significant lesion Neuro: Normal gait, Normal speech, Strength at 5/5 X4 ext, Normal tone, Sensation intact, Cranial nerves 3-12 NL, Reflexes 2+ Psych/Mental Status: Mental status NL, Mood NL Vitals Vitals Vital Signs Date Time Temp Pulse Resp B/P (MAP) Pulse Ox O2 Delivery O2 Flow Rate FiO2 10/11/18 10:27 74 147/83 10/11/18 10:12 20 Room Air 10/11/18 07:00 98.5 93 98.5 Labs Labs Laboratory Tests Test 10/10/18 22:10 10/11/18 02:20 10/11/18 07:31 White Blood Count 8.0 x10^3/uL (4.0-11.0) Red Blood Count 3.68 x10^6/uL (3.50-5.40) Hemoglobin 11.7 g/dL (12.0-15.5) Hematocrit 35.0 % (36.0-47.0) Mean Corpuscular Volume 95 fL (79-100) Mean Corpuscular Hemoglobin 32 pg (25-35) Mean Corpuscular Hemoglobin Concent 33 g/dL (31-37) Red Cell Distribution Width 14.3 % (11.5-14.5) Platelet Count 326 x10^3/uL (140-400) Neutrophils (%) (Auto) 59 % (31-73) Lymphocytes (%) (Auto) 31 % (24-48) Monocytes (%) (Auto) 6 % (0-9) Eosinophils (%) (Auto) 3 % (0-3) Basophils (%) (Auto) 0 % (0-3) Neutrophils # (Auto) 4.7 x10^3uL (1.8-7.7) Lymphocytes # (Auto) 2.5 x10^3/uL (1.0-4.8) Monocytes # (Auto) 0.5 x10^3/uL (0.0-1.1) Eosinophils # (Auto) 0.2 x10^3/uL (0.0-0.7) Basophils # (Auto) 0.0 x10^3/uL (0.0-0.2) Sodium Level 133 mmol/L (136-145) Potassium Level 3.8 mmol/L (3.5-5.1) Chloride Level 96 mmol/L (98-107) Carbon Dioxide Level 31 mmol/L (21-32) Anion Gap 6 (6-14) Blood Urea Nitrogen 22 mg/dL (7-20) Creatinine 1.0 mg/dL (0.6-1.0) Estimated GFR (Cockcroft-Gault) 54.5 BUN/Creatinine Ratio 22 (6-20) Glucose Level 134 mg/dL (70-99) Calcium Level 9.1 mg/dL (8.5-10.1) Total Bilirubin 0.4 mg/dL (0.2-1.0) Aspartate Amino Transf (AST/SGOT) 19 U/L (15-37) Alanine Aminotransferase (ALT/SGPT) 14 U/L (14-59) Alkaline Phosphatase 123 U/L (46-116) Troponin I Quantitative < 0.017 ng/mL (0.000-0.055) Total Protein 6.5 g/dL (6.4-8.2) Albumin 3.3 g/dL (3.4-5.0) Albumin/Globulin Ratio 1.0 (1.0-1.7) Lipase 135 U/L (73-393) Urine Collection Type Unknown Urine Color Yellow Urine Clarity Clear Urine pH 7.0 Urine Specific [place] <=1.005 Urine Protein Negative mg/dL (NEG-TRACE) Urine Glucose (UA) Negative mg/dL (NEG) Urine Ketones (Stick) Negative mg/dL (NEG) Urine Blood Negative (NEG) Urine Nitrite Negative (NEG) Urine Bilirubin Negative (NEG) Urine Urobilinogen Dipstick 0.2 mg/dL (0.2 mg/dL) Urine Leukocyte Esterase Trace (NEG) Urine RBC 0 /HPF (0-2) Urine WBC Occ /HPF (0-4) Urine Squamous Epithelial Cells Mod /LPF Urine Bacteria 0 /HPF (0-FEW) Glucose (Fingerstick) 119 mg/dL (70-99) Laboratory Tests Test 10/10/18 22:10 10/11/18 02:20 10/11/18 07:31 White Blood Count 8.0 x10^3/uL (4.0-11.0) Red Blood Count 3.68 x10^6/uL (3.50-5.40) Hemoglobin 11.7 g/dL (12.0-15.5) Hematocrit 35.0 % (36.0-47.0) Mean Corpuscular Volume 95 fL (79-100) Mean Corpuscular Hemoglobin 32 pg (25-35) Mean Corpuscular Hemoglobin Concent 33 g/dL (31-37) Red Cell Distribution Width 14.3 % (11.5-14.5) Platelet Count 326 x10^3/uL (140-400) Neutrophils (%) (Auto) 59 % (31-73) Lymphocytes (%) (Auto) 31 % (24-48) Monocytes (%) (Auto) 6 % (0-9) Eosinophils (%) (Auto) 3 % (0-3) Basophils (%) (Auto) 0 % (0-3) Neutrophils # (Auto) 4.7 x10^3uL (1.8-7.7) Lymphocytes # (Auto) 2.5 x10^3/uL (1.0-4.8) Monocytes # (Auto) 0.5 x10^3/uL (0.0-1.1) Eosinophils # (Auto) 0.2 x10^3/uL (0.0-0.7) Basophils # (Auto) 0.0 x10^3/uL (0.0-0.2) Sodium Level 133 mmol/L (136-145) Potassium Level 3.8 mmol/L (3.5-5.1) Chloride Level 96 mmol/L (98-107) Carbon Dioxide Level 31 mmol/L (21-32) Anion Gap 6 (6-14) Blood Urea Nitrogen 22 mg/dL (7-20) Creatinine 1.0 mg/dL (0.6-1.0) Estimated GFR (Cockcroft-Gault) 54.5 BUN/Creatinine Ratio 22 (6-20) Glucose Level 134 mg/dL (70-99) Calcium Level 9.1 mg/dL (8.5-10.1) Total Bilirubin 0.4 mg/dL (0.2-1.0) Aspartate Amino Transf (AST/SGOT) 19 U/L (15-37) Alanine Aminotransferase (ALT/SGPT) 14 U/L (14-59) Alkaline Phosphatase 123 U/L (46-116) Troponin I Quantitative < 0.017 ng/mL (0.000-0.055) Total Protein 6.5 g/dL (6.4-8.2) Albumin 3.3 g/dL (3.4-5.0) Albumin/Globulin Ratio 1.0 (1.0-1.7) Lipase 135 U/L (73-393) Urine Collection Type Unknown Urine Color Yellow Urine Clarity Clear Urine pH 7.0 Urine Specific [place] <=1.005 Urine Protein Negative mg/dL (NEG-TRACE) Urine Glucose (UA) Negative mg/dL (NEG) Urine Ketones (Stick) Negative mg/dL (NEG) Urine Blood Negative (NEG) Urine Nitrite Negative (NEG) Urine Bilirubin Negative (NEG) Urine Urobilinogen Dipstick 0.2 mg/dL (0.2 mg/dL) Urine Leukocyte Esterase Trace (NEG) Urine RBC 0 /HPF (0-2) Urine WBC Occ /HPF (0-4) Urine Squamous Epithelial Cells Mod /LPF Urine Bacteria 0 /HPF (0-FEW) Glucose (Fingerstick) 119 mg/dL (70-99) VTE Prophylaxis Ordered VTE Prophylaxis Devices: Yes VTE Pharmacological Prophylaxi: Yes Assessment/Plan Assessment/Plan Nausea vomiting with normal KUB Mild hyponatremia Polypharmacy Plan: regular diet, PT OT, ambulate later, if does well, home later Observation status SHERLEY BARBOUR MD Oct 11, 2018 11:21
--- NOTE | 2018-10-11 11:22 | PDOC3 ---
Discharge Summary Visit Information Date of Admission: Oct 10, 2018 Date of Discharge: Oct 11, 2018 Admitting Diagnosis Comment: Nausea vomiting, with normal KUB Polypharmacy Mild hyponatremia Final Diagnosis Problems Medical Problems: (1) Abdominal pain Status: Acute (2) Diarrhea Status: Acute (3) Generalized weakness Status: Acute Brief Hospital Course Allergies Allergies Coded Allergies Type Severity Reaction Last Updated Verified Sulfa (Sulfonamide Antibiotics) Allergy Intermediate hives 11/01/17 Yes dexamethasone Allergy Intermediate 11/01/17 Yes Vital Signs Vital Signs Date Time Temp Pulse Resp B/P (MAP) Pulse Ox O2 Delivery O2 Flow Rate FiO2 10/11/18 10:27 74 147/83 10/11/18 10:12 20 Room Air 10/11/18 07:00 98.5 93 98.5 Lab Results Laboratory Tests Test 10/10/18 22:10 10/11/18 02:20 10/11/18 07:31 White Blood Count 8.0 x10^3/uL (4.0-11.0) Red Blood Count 3.68 x10^6/uL (3.50-5.40) Hemoglobin 11.7 g/dL (12.0-15.5) Hematocrit 35.0 % (36.0-47.0) Mean Corpuscular Volume 95 fL (79-100) Mean Corpuscular Hemoglobin 32 pg (25-35) Mean Corpuscular Hemoglobin Concent 33 g/dL (31-37) Red Cell Distribution Width 14.3 % (11.5-14.5) Platelet Count 326 x10^3/uL (140-400) Neutrophils (%) (Auto) 59 % (31-73) Lymphocytes (%) (Auto) 31 % (24-48) Monocytes (%) (Auto) 6 % (0-9) Eosinophils (%) (Auto) 3 % (0-3) Basophils (%) (Auto) 0 % (0-3) Neutrophils # (Auto) 4.7 x10^3uL (1.8-7.7) Lymphocytes # (Auto) 2.5 x10^3/uL (1.0-4.8) Monocytes # (Auto) 0.5 x10^3/uL (0.0-1.1) Eosinophils # (Auto) 0.2 x10^3/uL (0.0-0.7) Basophils # (Auto) 0.0 x10^3/uL (0.0-0.2) Sodium Level 133 mmol/L (136-145) Potassium Level 3.8 mmol/L (3.5-5.1) Chloride Level 96 mmol/L (98-107) Carbon Dioxide Level 31 mmol/L (21-32) Anion Gap 6 (6-14) Blood Urea Nitrogen 22 mg/dL (7-20) Creatinine 1.0 mg/dL (0.6-1.0) Estimated GFR (Cockcroft-Gault) 54.5 BUN/Creatinine Ratio 22 (6-20) Glucose Level 134 mg/dL (70-99) Calcium Level 9.1 mg/dL (8.5-10.1) Total Bilirubin 0.4 mg/dL (0.2-1.0) Aspartate Amino Transf (AST/SGOT) 19 U/L (15-37) Alanine Aminotransferase (ALT/SGPT) 14 U/L (14-59) Alkaline Phosphatase 123 U/L (46-116) Troponin I Quantitative < 0.017 ng/mL (0.000-0.055) Total Protein 6.5 g/dL (6.4-8.2) Albumin 3.3 g/dL (3.4-5.0) Albumin/Globulin Ratio 1.0 (1.0-1.7) Lipase 135 U/L (73-393) Urine Collection Type Unknown Urine Color Yellow Urine Clarity Clear Urine pH 7.0 Urine Specific Willard <=1.005 Urine Protein Negative mg/dL (NEG-TRACE) Urine Glucose (UA) Negative mg/dL (NEG) Urine Ketones (Stick) Negative mg/dL (NEG) Urine Blood Negative (NEG) Urine Nitrite Negative (NEG) Urine Bilirubin Negative (NEG) Urine Urobilinogen Dipstick 0.2 mg/dL (0.2 mg/dL) Urine Leukocyte Esterase Trace (NEG) Urine RBC 0 /HPF (0-2) Urine WBC Occ /HPF (0-4) Urine Squamous Epithelial Cells Mod /LPF Urine Bacteria 0 /HPF (0-FEW) Glucose (Fingerstick) 119 mg/dL (70-99) Laboratory Tests Test 10/10/18 22:10 10/11/18 02:20 10/11/18 07:31 White Blood Count 8.0 x10^3/uL (4.0-11.0) Red Blood Count 3.68 x10^6/uL (3.50-5.40) Hemoglobin 11.7 g/dL (12.0-15.5) Hematocrit 35.0 % (36.0-47.0) Mean Corpuscular Volume 95 fL (79-100) Mean Corpuscular Hemoglobin 32 pg (25-35) Mean Corpuscular Hemoglobin Concent 33 g/dL (31-37) Red Cell Distribution Width 14.3 % (11.5-14.5) Platelet Count 326 x10^3/uL (140-400) Neutrophils (%) (Auto) 59 % (31-73) Lymphocytes (%) (Auto) 31 % (24-48) Monocytes (%) (Auto) 6 % (0-9) Eosinophils (%) (Auto) 3 % (0-3) Basophils (%) (Auto) 0 % (0-3) Neutrophils # (Auto) 4.7 x10^3uL (1.8-7.7) Lymphocytes # (Auto) 2.5 x10^3/uL (1.0-4.8) Monocytes # (Auto) 0.5 x10^3/uL (0.0-1.1) Eosinophils # (Auto) 0.2 x10^3/uL (0.0-0.7) Basophils # (Auto) 0.0 x10^3/uL (0.0-0.2) Sodium Level 133 mmol/L (136-145) Potassium Level 3.8 mmol/L (3.5-5.1) Chloride Level 96 mmol/L (98-107) Carbon Dioxide Level 31 mmol/L (21-32) Anion Gap 6 (6-14) Blood Urea Nitrogen 22 mg/dL (7-20) Creatinine 1.0 mg/dL (0.6-1.0) Estimated GFR (Cockcroft-Gault) 54.5 BUN/Creatinine Ratio 22 (6-20) Glucose Level 134 mg/dL (70-99) Calcium Level 9.1 mg/dL (8.5-10.1) Total Bilirubin 0.4 mg/dL (0.2-1.0) Aspartate Amino Transf (AST/SGOT) 19 U/L (15-37) Alanine Aminotransferase (ALT/SGPT) 14 U/L (14-59) Alkaline Phosphatase 123 U/L (46-116) Troponin I Quantitative < 0.017 ng/mL (0.000-0.055) Total Protein 6.5 g/dL (6.4-8.2) Albumin 3.3 g/dL (3.4-5.0) Albumin/Globulin Ratio 1.0 (1.0-1.7) Lipase 135 U/L (73-393) Urine Collection Type Unknown Urine Color Yellow Urine Clarity Clear Urine pH 7.0 Urine Specific Willard <=1.005 Urine Protein Negative mg/dL (NEG-TRACE) Urine Glucose (UA) Negative mg/dL (NEG) Urine Ketones (Stick) Negative mg/dL (NEG) Urine Blood Negative (NEG) Urine Nitrite Negative (NEG) Urine Bilirubin Negative (NEG) Urine Urobilinogen Dipstick 0.2 mg/dL (0.2 mg/dL) Urine Leukocyte Esterase Trace (NEG) Urine RBC 0 /HPF (0-2) Urine WBC Occ /HPF (0-4) Urine Squamous Epithelial Cells Mod /LPF Urine Bacteria 0 /HPF (0-FEW) Glucose (Fingerstick) 119 mg/dL (70-99) Brief Hospital Course Ms. Knowles is a 73 old [sex] who presented with [ ] 73-year-old white female came from home, came in for an intractable nausea vomiting as initial working diagnosis with mild elyte Abnormalities namely mild hyponatremia 133 but normal creatinine and normal potassium. KUB shows normal gas pattern. I'm upgrading to a regular diet. She claims her BP was low on admission. She feels better. Has not ambulated. We'll try regular diet, PT OT. If BP better and able to tolerate diet home later with no change in meds She is on insulin and other 30 medications, she has polypharmacy. She follows with her PCP COURSE: If tolerates diet later, ambulates with PT, and VS good can go home later with no change in meds Discharge Information Condition at Discharge: Improved, Stable Disposition/Orders: D/C to Home Scheduled Aspirin (Aspir 81) 81 Mg Tablet., 1 TAB PO DAILY, #30 Ref 5 (Reported) Entered as Reported by: MARK GARCIA on 06/02/16 1237 Last Action: Continued on 10/11/18 0201 by AGNES TIMONERA Budesonide/Formoterol Fumarate (Symbicort 80-4.5 Mcg Inhaler) 10.2 Gm Hfa.aer.ad, 2 PUFF IH BID for COPD for 30 Days, #10.2 Ref 5 Prescribed by: JUSTUS DE JESUS MD on 07/26/181001 Buspirone Hcl (Buspirone Hcl) 15 Mg Tablet, 1 TAB PO TID for Anxiety/Depression, #60 (Reported) Entered as Reported by: Thalia Teague RN on 07/24/186 Last Action: Converted on 10/11/18200 by AGNES LINTON Carbidopa/Levodopa (Carbidopa-Levodopa 25-100 Tab) 1 Each Tablet, 3 TAB PO TID for Parkinson, (Reported) Entered as Reported by: ÁNGEL LOO on 04/16/16 0820 Last Action: Continued on 10/11/18200 by AGNES LINTON Carvedilol (Coreg) 25 Mg Tablet, 25 MG PO BIDWMEALS for CARDIAC, (Reported) Entered as Reported by: AGNES LINTON on 10/11/1849 Last Action: Converted on 10/11/18200 by AGNES LINTON Cholecalciferol (Vitamin D3) (Vitamin D3) 5,000 Unit Tablet, 1 TAB PO DAILY for supplement, (Reported) Entered as Reported by: KYLE DANIELS RN on 08/10/18311 Last Action: Converted on 10/11/18200 by AGNES LINTON Clopidogrel Bisulfate (Clopidogrel) 75 Mg Tablet, 75 MG PO HS for TO PREVENT BLOOD CLOTS, #30 Ref 0 (Reported) Entered as Reported by: AGNES LINTON on 10/11/1849 Last Action: Continued on 10/11/18200 by AGNES LINTON Cyclobenzaprine Hcl (Cyclobenzaprine Hcl) 10 Mg Tablet, 1 TAB PO TID for spasm, #90 (Reported) Entered as Reported by: AGNES LINTON on 10/11/1849 Last Action: Continued on 10/11/18200 by AGNES LINTON Diltiazem Hcl (Cartia Xt) 180 Mg Cap.er.24h, 180 MG PO DAILY for Afib, (Reported) Entered as Reported by: Thalia Teague RN on 07/24/182245 Last Action: Converted on 10/11/18200 by AGNES LINTON Donepezil Hcl (Donepezil Hcl) 10 Mg Tablet, 1 TAB PO HS for memory/dementia, #90 Ref 1 (Reported) Entered as Reported by: WILLARD CERVANTES on 08/15/161518 Last Action: Converted on 10/11/18200 by AGNES LINTON Duloxetine Hcl (Duloxetine Hcl) 60 Mg Capsule.dr, 60 MG PO BID for Depression, (Reported) Entered as Reported by: WILLARD CERVANTES on 08/15/161518 Last Action: Converted on 10/11/18200 by AGNES LINTON Esomeprazole Magnesium (Nexium Capsule) 40 Mg Capsule.dr, 40 MG PO DAILY for gastric upset, (Reported) Entered as Reported by: MARIAA WILKINS on 09/01/13 1539 Last Action: Converted on 10/11/18200 by AGNES LINTON Ferrous Sulfate (Ferrous Sulfate) 325 Mg Tablet, 1 TAB PO DAILY for supplement, #30 Ref 3 (Reported) Entered as Reported by: AGNES LINTON on 10/11/1849 Last Action: Continued on 10/11/18200 by AGNES LINTON Furosemide (Furosemide) 20 Mg Tablet, 1 TAB PO DAILY for bp, #90 Ref 1 (Reported) Entered as Reported by: AGNES LINTON on 10/11/1849 Last Action: Continued on 10/11/18200 by AGNES LINTON Gabapentin (Gabapentin ) 300 Mg Capsule, 300 MG PO TID for NEUROGENIC PAIN, (Reported) Entered as Reported by: Thalia Teague RN on 07/24/182245 Last Action: Continued on 10/11/18200 by AGNES LINTON Hydralazine Hcl (Hydralazine Hcl) 25 Mg Tablet, 1 TAB PO DAILY for htn, #90 Ref 5 (Reported) Entered as Reported by: AGNES LINTON on 10/11/1849 Last Action: Converted on 10/11/18200 by AGNES LINTON Lactobacillus Acidophilus (Probiotic) 1 Each Capsule, 1 EACH PO DAILY for supplement, (Reported) Entered as Reported by: AGNES LINTON on 10/11/1849 Last Action: Converted on 10/11/18200 by AGNES LINTON Levothyroxine Sodium (Levothyroxine Sodium) 150 Mcg Tablet, 1 TAB PO DAILY07, #30 Ref 5 (Reported) Entered as Reported by: GILA [facility] on 05/09/17 1545 Last Action: Converted on 10/11/18200 by AGNES LINTON Lidocaine (Lidoderm) 700 Mg Adh..patch, 1 PATCH TP HS for Back pain, #30 Ref 1 (Reported) Entered as Reported by: MARK GARCIA on 06/02/16 1237 Last Action: Converted on 10/11/18200 by AGNES LINTON Lisinopril (Lisinopril) 20 Mg Tablet, 1 TAB PO DAILY for htn, #30 Ref 5 (Reported) Entered as Reported by: AGNES LINTON on 10/11/1849 Last Action: Continued on 10/11/18200 by AGNES LINTON Lorazepam (Lorazepam) 0.5 Mg Tablet, 0.5 MG PO QID for anxiety, (Reported) Entered as Reported by: AGNES LINTON on 10/11/1849 Last Action: Continued on 10/11/18200 by AGNES LINTON Melatonin (Melatonin) 3 Mg Tablet, 10 MG PO QHS for sleep, (Reported) Entered as Reported by: KYLE DANIELS RN on 08/10/18311 Last Action: Converted on 10/11/18200 by AGNES LINTON Meloxicam (Meloxicam) 7.5 Mg Tablet, 1 TAB PO DAILY for osteoarthritis, #30 Ref 2 (Reported) Entered as Reported by: AGNES LINTON on 10/11/1849 Last Action: Converted on 10/11/18200 by AGNES LINTON Metformin Hcl (Metformin Hcl) 500 Mg Tablet, 1 TAB PO BID for antidiabetic, #60 Ref 3 (Reported) Entered as Reported by: JULIOCESAR LYLES on 02/25/15 1345 Last Action: Converted on 10/11/18200 by AGNES LINTON Methocarbamol (Robaxin-750) 750 Mg Tablet, 1 TAB PO TID for muscle cramps, #90 (Reported) Entered as Reported by: AGNES LINTON on 10/11/1849 Last Action: Converted on 10/11/18200 by AGNES LINTON Methylcellulose (Fiber) 500 Mg Tablet, 500 MG PO BID for Constipation, (Reported) Entered as Reported by: KYLE DANIELS RN on 08/10/18311 Last Action: Converted on 10/11/18200 by AGNES LINTON Metoclopramide Hcl (Reglan) 10 Mg Tablet, 1 TAB PO QID for gastroparesis, #120 (Reported) Entered as Reported by: AGNES LINTON on 10/11/1849 Last Action: Continued on 10/11/18200 by AGNES LINTON Mirtazapine (Mirtazapine) 30 Mg Tab.rapdis, 30 MG PO HS, (Reported) Entered as Reported by: ÁNGEL LOO on 04/16/16 0814 Last Action: Converted on 10/11/18200 by AGNES LINTON Oxycodone HCl (Oxycontin) 10 Mg Tab.er.12h, 10 MG PO TID for Pain, (Reported) Entered as Reported by: Thalia Teague RN on 07/24/18 2246 Last Action: Continued on 10/11/18200 by AGNES LINTON Potassium Gluconate (Potassium Gluconate) 99 Mg Tablet, 99 MG PO DAILYWSUP for supplement, (Reported) Entered as Reported by: AGNES LINTON on 10/11/1849 Last Action: Converted on 10/11/18200 by AGNES LINTON Primidone (Mysoline) 50 Mg Tablet, 50 MG PO TID for Parkinson's, (Reported) Entered as Reported by: KYLE DANIELS RN on 08/10/18311 Last Action: Converted on 10/11/18200 by AGNES LINTON Ropinirole Hcl (Ropinirole Hcl) 1 Mg Tablet, 1 MG PO TID, (Reported) Entered as Reported by: Danelle Arredondo on 11/15/16 0054 Last Action: Converted on 10/11/18200 by AGNES LINTON Vitamin E Mixed (Vitamin E) 400 Unit Capsule, 400 UNIT PO DAILY for supplement, (Reported) Entered as Reported by: GILA [facility] on 08/15/18 1704 Last Action: Converted on 10/11/18200 by AGNES LNITON Zolpidem Tartrate (Ambien) 5 Mg Tablet, 5 MG PO HS for insomnia, Ref 0 (Reported) Entered as Reported by: AGNES LINTON on 10/11/1849 Last Action: Continued on 10/11/18200 by AGNES LINTON Scheduled PRN Docusate Sodium (Stool Softener) 50 Mg Capsule, 50 MG PO PRN PRN for CONSTIPATION, (Reported) Entered as Reported by: KYLE DANIELS RN on 08/10/18311 Last Action: Converted on 10/11/18200 by SHERLEY MEHTA MD Oct 11, 2018 11:22
--- NOTE | 2018-10-11 14:09 | NUR ---
Discharge Note: LAYLA ROSSI Discharge instructions and discharge home medications reviewed with Patient and a copy given. All questions have been answered and understanding verbalized. The following instructions and handouts were given: Nausea, weakness Discontinued lines and drains: peripheral IV Patient discharged to Home w/services withFamily Membervia Wheelchair
[2018-10-11] MEDS ORDERED: NON FORMULARY ITEM (Potassium Gluconate 99 MG) PO SCH (17:00)
[2018-10-11] MEDS ORDERED: NON FORMULARY ITEM (Melatonin 10 MG) PO SCH (21:00)
== END 2018-10-11 13:58 | disposition home health service (06) | DRG 641 ==
LOC: ER 19:53 → 5 NORTH 22:30
PROVIDERS: ADMIT Internal Medicine; ATTEND Internal Medicine
DX: E87.1 Hypo-osmolality and hyponatremia (principal); F41.9 Anxiety disorder, unspecified; F32.9 Major depressive disorder, single episode, unspecified; E03.9 Hypothyroidism, unspecified; Z96.659 Presence of unspecified artificial knee joint; G20 Parkinson's disease; I25.10 Atherosclerotic heart disease of native coronary artery without angina pectoris; I10 Essential (primary) hypertension; E86.0 Dehydration; F02.80 Dementia in other diseases classified elsewhere, unspecified severity, without behavioral disturbance, psychotic disturbance, mood disturbance, and anxiety; G89.29 Other chronic pain; Z86.73 Personal history of transient ischemic attack (TIA), and cerebral infarction without residual deficits; I25.2 Old myocardial infarction; Z95.5 Presence of coronary angioplasty implant and graft; Z79.899 Other long term (current) drug therapy; Z90.710 Acquired absence of both cervix and uterus; Z79.84 Long term (current) use of oral hypoglycemic drugs; Z83.3 Family history of diabetes mellitus; Z79.82 Long term (current) use of aspirin; Z79.51 Long term (current) use of inhaled steroids; Z88.2 Allergy status to sulfonamides; Z88.8 Allergy status to other drugs, medicaments and biological substances
CPT/HCPCS: 36415; 74018; 80053; 81001; 82962; 83690; 84484; 85025; 87086; 93005; 96361; 96374; J2405; J7030; J8597; 99285-25

== ENCOUNTER 2019-03-19 16:00 | Inpatient (IN) | payer MEDICARE ==
[~2019-03-19] VITALS: Ht 160 cm; Wt 83.5 kg
[~2019-03-19 16:00] MED LIST changes: +CARV25TA PO; -DULO60CA44 PO; +DULO60CA45 PO; +FURO20TA3 PO; +HYDR-2868 PO; +LACT1CAP6 PO; +LISI-334 PO; -MAGN400T3 PO; +MAGN400T5 PO; -MELA3TAB2 PO; +MELA3TAB56 PO; +METH-38 PO; +POTA99TA3 PO; +VITA-8 PO; -VITA400C36 PO; +ZOLP5TAB PO
[2019-03-19 17:19] LABS: BASO % 1 % (0-3); EOS # 0.2 x10^3/uL (0.0-0.7); EOS % 3 % (0-3); HEMATOCRIT 34.2 % (36.0-47.0); HEMOGLOBIN 11.6 g/dL (12.0-15.5); LYMPH # 1.7 x10^3/uL (1.0-4.8); LYMPH % 31 % (24-48); MEAN CORPUSCULAR HEMOGLOBIN 31 pg (25-35); MEAN CORPUSCULAR HGB CONC 34 g/dL (31-37); MEAN CORPUSCULAR VOLUME 92 fL (79-100); MONO # 0.6 x10^3/uL (0.0-1.1); MONO % 11 % (0-9); NEUT % 55 % (31-73); PLATELET COUNT 332 x10^3/uL (140-400); RED BLOOD COUNT 3.73 x10^6/uL (3.50-5.40); RED CELL DISTRIBUTION WIDTH 13.1 % (11.5-14.5); WHITE BLOOD COUNT 5.5 x10^3/uL (4.0-11.0)
[2019-03-19 17:20] LABS: BILIRUBIN,URINE NEGATIVE (NEG); CLARITY,URINE CLEAR; COLOR,URINE YELLOW; NITRITE,URINE NEGATIVE (NEG); PROTEIN,URINE NEGATIVE (NEG-TRACE); UROBILINOGEN,URINE 0.2 mg/dL (0.2 mg/dL)
[2019-03-19 17:24] LABS: BACTERIA,URINE 0 /HPF (0-FEW); RBC,URINE 0 /HPF (0-2); SQUAMOUS EPITHELIAL CELL,UR OCC /LPF; WBC,URINE RARE /HPF (0-4)
--- NOTE | 2019-03-19 17:28 | RAD ---
CT HEAD INDICATION: Neurological changes COMPARISON: 08/14/2018 Exposure: One or more of the following individualized dose reduction techniques were utilized for this examination: 1. Automated exposure control 2. Adjustment of the mA and/or kV according to patient size 3. Use of iterative reconstruction technique TECHNIQUE: 5 mm contiguous axial images were obtained from the skull base to the vertex in both bone and soft tissue algorithm. FINDINGS: Mild bilateral periventricular white matter hypodensities likely chronic small vessel ischemic disease. No evidence of acute intracranial hemorrhage. No extra-axial fluid collections. No mass effect or midline shift. Ventricular size is appropriate. Basal cisterns are patent. No fractures identified.Brothers-white differentiation is preserved.Globes and orbits are within normal limits. Paranasal sinuses and mastoid air cells are clear. IMPRESSION: No acute intracranial findings. Electronically signed by: Binu Medina MD (03/19/2019 5:25 PM) [facility]
[2019-03-19] MEDS ORDERED: ASPIRIN CHEWABLE 81 MG TABLET. PO STA (17:32)
[2019-03-19 17:36] LABS: CALCIUM 8.5 mg/dL (8.5-10.1); CREATININE 1.2 mg/dL (0.6-1.0); POTASSIUM 4.3 mmol/L (3.5-5.1)
--- NOTE | 2019-03-19 17:40 | PHYS DOC ---
Past Medical History Past Medical History: Anxiety, CAD, CVA, Depression, Diabetes-Type II, DVT, Hypothyroid, AK, Stroke, Other Additional Past Medical Histor: PARKINSON'S, GASTROPARESIS, CHRONIC BACK PAIN;factor V Past Surgical History: , Hysterectomy, Knee Replacement, Pacemaker, Tonsillectomy Additional Past Surgical Histo: CARDIAC STENT, BLADDER SX, BOWEL RESECTION, RIGHT SHOULDER SX, CATARACT SX Alcohol Use: None Drug Use: None Adult General Chief Complaint Chief Complaint: NEURO SYMPTOMS/DEFICITS HPI HPI Patient is a 74 year old female that presents with multiple symptoms. The patient states that she woke up this morning and states that she really had to go to the bathroom and felt that she could not go but she had 2 and states that originally her urine came out really dark, then she became dizzy and lightheaded around noon today. She then went to her neurologist office around 2:30 and said she started to have slurred speech around that time and started to drag her right foot and leaning against the wall. The patient was admitted several weeks ago for pneumonia, and hyponatremia. The patient has a baseline deficit of right sided weakness from her previous stroke. She's recently been on a sodium restriction and fluid restriction 1500 mL. The patient has a history of multiple CVAs, also has Parkinson's, and also has a history of heart stents. Review of Systems Review of Systems Constitutional: Denies fever or chills [] Eyes: Denies change in visual acuity, redness, or eye pain [] HENT: Denies nasal congestion or sore throat [] Respiratory: Denies cough or shortness of breath [] Cardiovascular: No additional information not addressed in HPI [] GI: Denies abdominal pain, nausea, vomiting, bloody stools or diarrhea [] : Reports dysuria. Musculoskeletal: Denies back pain or joint pain [] Integument: Denies rash or skin lesions [] Neurologic: Denies headache,reports sensory and motor changes. Endocrine: Denies polyuria or polydipsia [] Complete systems were reviewed and found to be within normal limits, except as documented in this note. Current Medications Current Medications Current Medications Medications (Trade) Dose Ordered Sig/Carlene Start Time Stop Time Status Last Admin Dose Admin Aspirin (Children'S Aspirin) 324 mg 1X STAT 03/19/19 17:32 03/19/19 17:39 DC 03/19/19 17:50 324 MG Iohexol (Omnipaque 350 Mg/ml) 60 ml 1X ONCE 03/19/19 17:45 03/19/19 17:46 DC Lorazepam (Ativan Inj) 1 mg 1X STAT 03/19/19 18:51 03/19/19 18:56 DC Allergies Allergies Allergies Coded Allergies Type Severity Reaction Last Updated Verified Sulfa (Sulfonamide Antibiotics) Allergy Intermediate hives 11/01/17 Yes dexamethasone Allergy Intermediate 11/01/17 Yes Physical Exam Physical Exam Constitutional: Well developed, well nourished, no acute distress, non-toxic appearance. [] HENT: Normocephalic, atraumatic, bilateral external ears normal, oropharynx moist, no oral exudates, nose normal. [] Eyes: PERRLA, EOMI, conjunctiva normal, no discharge. [] Neck: Normal range of motion, no tenderness, supple, no stridor. [] Cardiovascular:Heart rate regular rhythm, no murmur [] Lungs & Thorax: Bilateral breath sounds clear to auscultation [] Abdomen: Bowel sounds normal, soft, no tenderness, no masses, no pulsatile ma sses. [] Skin: Warm, dry, no erythema, no rash. [] Back: No tenderness, no CVA tenderness. [] Extremities: No tenderness, no cyanosis, no clubbing, ROM intact, no edema. [] Neurologic: Alert and oriented X 3, reduced motor function bilateral lower extremities, reduced facial sensation on R side Psychologic: Affect normal, judgement normal, mood normal. [] Current Patient Data Vital Signs Vital Signs Date Time Temp Pulse Resp B/P (MAP) Pulse Ox O2 Delivery O2 Flow Rate FiO2 03/19/19 17:54 74 16 96 03/19/19 16:15 99.1 175/81 (112) Room Air 99.1 Lab Values Laboratory Tests Test 03/19/19 16:30 03/19/19 17:04 03/19/19 17:44 Urine Collection Type Unknown Urine Color Yellow Urine Clarity Clear Urine pH 6.0 Urine Specific Sarver <=1.005 Urine Protein Negative mg/dL (NEG-TRACE) Urine Glucose (UA) Negative mg/dL (NEG) Urine Ketones (Stick) Negative mg/dL (NEG) Urine Blood Negative (NEG) Urine Nitrite Negative (NEG) Urine Bilirubin Negative (NEG) Urine Urobilinogen Dipstick 0.2 mg/dL (0.2 mg/dL) Urine Leukocyte Esterase Negative (NEG) Urine RBC 0 /HPF (0-2) Urine WBC Rare /HPF (0-4) Urine Squamous Epithelial Cells Occ /LPF Urine Bacteria 0 /HPF (0-FEW) White Blood Count 5.5 x10^3/uL (4.0-11.0) Red Blood Count 3.73 x10^6/uL (3.50-5.40) Hemoglobin 11.6 g/dL (12.0-15.5) L Hematocrit 34.2 % (36.0-47.0) L Mean Corpuscular Volume 92 fL (79-100) Mean Corpuscular Hemoglobin 31 pg (25-35) Mean Corpuscular Hemoglobin Concent 34 g/dL (31-37) Red Cell Distribution Width 13.1 % (11.5-14.5) Platelet Count 332 x10^3/uL (140-400) Neutrophils (%) (Auto) 55 % (31-73) Lymphocytes (%) (Auto) 31 % (24-48) Monocytes (%) (Auto) 11 % (0-9) H Eosinophils (%) (Auto) 3 % (0-3) Basophils (%) (Auto) 1 % (0-3) Neutrophils # (Auto) 3.0 x10^3/uL (1.8-7.7) Lymphocytes # (Auto) 1.7 x10^3/uL (1.0-4.8) Monocytes # (Auto) 0.6 x10^3/uL (0.0-1.1) Eosinophils # (Auto) 0.2 x10^3/uL (0.0-0.7) Basophils # (Auto) 0.0 x10^3/uL (0.0-0.2) Prothrombin Time 12.7 SEC (11.7-14.0) Prothrombin Time INR 1.0 (0.8-1.1) Activated Partial Thromboplast Time 25 SEC (24-38) Sodium Level 131 mmol/L (136-145) L Potassium Level 4.3 mmol/L (3.5-5.1) Chloride Level 94 mmol/L (98-107) L Carbon Dioxide Level 26 mmol/L (21-32) Anion Gap 11 (6-14) Blood Urea Nitrogen 40 mg/dL (7-20) H Creatinine 1.2 mg/dL (0.6-1.0) H Estimated GFR (Cockcroft-Gault) 44.0 BUN/Creatinine Ratio 33 (6-20) H Glucose Level 84 mg/dL (70-99) Lactic Acid Level 0.8 mmol/L (0.4-2.0) Calcium Level 8.5 mg/dL (8.5-10.1) Magnesium Level 2.1 mg/dL (1.8-2.4) Total Bilirubin 0.4 mg/dL (0.2-1.0) Aspartate Amino Transferase (AST) 32 U/L (15-37) Alanine Aminotransferase (ALT) 7 U/L (14-59) L Alkaline Phosphatase 115 U/L (46-116) Troponin I Quantitative < 0.017 ng/mL (0.000-0.055) Total Protein 7.0 g/dL (6.4-8.2) Albumin 3.4 g/dL (3.4-5.0) Albumin/Globulin Ratio 0.9 (1.0-1.7) L Glucose (Fingerstick) 65 mg/dL (70-99) L Laboratory Tests 03/19/19 17:04 Laboratory Tests 03/19/19 17:04 EKG EKG EKG interpreted by Dr. Estevez Sinus rate of 66, No acute abnormalities.[] Radiology/Procedures Radiology/Procedures [facility] [address] [place], [place] [id number] IMAGING REPORT Signed PATIENT: LAYLA ROSSI ACCOUNT: [id number] : 1945 LOCATION: ER AGE: 74 SEX: F EXAM STATUS: REG ER ORD. PHYSICIAN: PHYLLIS BLOCK APRN REASON: Weak, cough PROCEDURE: CHEST PA & LATERAL CHEST PA LATERAL History: Weakness, cough Comparison: August 12, 2018 Findings: 2 views of the chest are submitted. There is again right electronic cardiac device. Cardiac silhouette is stable, upper limits of normal. There is atherosclerotic calcification near aortic arch. There is no new lobar consolidation, pleural fluid, pneumothorax. Impression: 1. No acute radiographic abnormality is identified. Electronically signed by: Aure Dela Cruz MD (03/19/2019 5:36 PM) [facility] DICTATED and SIGNED BY: AURE DELA CRUZ MD DATE: 03/19/191735 [][facility] [address] [place] [address] IMAGING REPORT Signed PATIENT: LAYLA ROSSI ACCOUNT: [id number] : 1945 LOCATION: ER AGE: 74 SEX: F EXAM STATUS: REG ER ORD. PHYSICIAN: PHYLLIS BLOCK APRN REASON: neuro changes PROCEDURE: CT HEAD WO CONTRAST CT HEAD INDICATION: Neurological changes COMPARISON: 08/14/2018 Exposure: One or more of the following individualized dose reduction techniques were utilized for this examination: 1. Automated exposure control 2. Adjustment of the mA and/or kV according to patient size 3. Use of iterative reconstruction technique TECHNIQUE: 5 mm contiguous axial images were obtained from the skull base to the vertex in both bone and soft tissue algorithm. FINDINGS: Mild bilateral periventricular white matter hypodensities likely chronic small vessel ischemic disease. No evidence of acute intracranial hemorrhage. No extra-axial fluid collections. No mass effect or midline shift. Ventricular size is appropriate. Basal cisterns are patent. No fractures identified.Brothers-white differentiation is preserved.Globes and orbits are within normal limits. Paranasal sinuses and mastoid air cells are clear. IMPRESSION: No acute intracranial findings. Electronically signed by: Binu Lin MD (03/19/2019 5:25 PM) [facility] DICTATED and SIGNED BY: BINU LIN MD DATE: 03/19/191724 Course & Med Decision Making Course & Med Decision Making Pertinent Labs and Imaging studies reviewed. (See chart for details) Will get CT head, labs, CTA, chest x-ray and urine. Last known well is difficult to obtain but appears to be noon. Unable to do CTA due to a GFR of 44. Discussed case with Dr. Sykes who requests fasting lipids and MRI w/o contrast. 1850 (Patient has started hallucinating) will order 1 mg of Ativan. Discussed with Dr. Jeffrey and will admit to hospital (19:19). Dragon Disclaimer Dragon Disclaimer This electronic medical record was generated, in whole or in part, using a voice recognition dictation system. Departure Departure Impression: Primary Impression: TIA (transient ischemic attack) Disposition: 09 ADMITTED INPATIENT Admitting Physician: PAT Condition: STABLE Referrals: DB BAILEY MD (PCP) NIHSS Stroke Scale NIH Stroke Scale: NIH Stroke Scale Response (Comments) Value Level of Consciousness: 0 Alert/Responsive 0 LOC Questions: 0 Answers both correctly 0 LOC Commands: 0 Performs both tasks 0 Best Gaze: 0 Normal 0 Visual: 0 No visual loss 0 Facial Palsy: 1 Minor paralysis 1 Motor - Left Arm 0 No drift 0 Motor - Right Arm 0 No drift 0 Motor - Left Leg 1 Drift but can hold 1 Motor: Right Leg 1 Drift but can hold 1 Limb Ataxia: 0 Absent 0 Sensory: 1 Mid to moderate loss 1 Best Language: 0 Normal 0 Dysathria: 0 Normal 0 Extinction and Inattention: 0 Normal 0 Total 4 PHYLLIS BLOCK APRN Mar 19, 2019 17:39
[2019-03-19] MEDS ORDERED: IOHEXOL 350 MG/ML 100 ML VIAL. IV ONE (17:45)
[2019-03-19 17:47] LABS: ALBUMIN 3.4 g/dL (3.4-5.0); ALBUMIN/GLOBULIN RATIO 0.9 (1.0-1.7); MAGNESIUM 2.1 mg/dL (1.8-2.4); TOTAL BILIRUBIN 0.4 mg/dL (0.2-1.0)
[2019-03-19 17:54] LABS: PROTHROMBIN TIME PATIENT 12.7 SEC (11.7-14.0)
--- NOTE | 2019-03-19 20:43 | HP ---
ADMIT DATE: 03/19/2019 CHIEF COMPLAINT: Slurred speech, weakness, dizziness. HISTORY OF PRESENT ILLNESS: The patient is a pleasant 74-year-old female well known to my service. She has Parkinson's disease and strokes and multiple medical issues. She was weak this morning. She then went to her doctor, had some slurred speech. She has also been shaking. Rates her symptoms at 9/10. She probably had a TIA. I discussed the case with ER physician. We are going to admit the patient and consult Dr. Sykes. The patient is being examined in the Emergency Room, where we are waiting for her to go to the floor. The histotechnician is here. We are going to probably be getting an MRI as well. PAST MEDICAL HISTORY: 1. Anxiety. 2. Coronary artery disease. 3. Depression. 4. Stroke. 5. Diabetes. 6. Hypertension. 7. Hypothyroidism. 8. DVT. 9. Myocardial infarction. 10. Parkinson's. 11. Gastroparesis. 12. Chronic back pain. PAST SURGICAL HISTORY: 1. Hysterectomy. 2. Knee replacement. 3. Pacemaker. 4. Tonsillectomy. 5. Cardiac stents. 6. Bladder surgery. 7. Bowel resection. 8. Right shoulder surgery. 9. Cataracts. ALLERGIES: SULFA and DEXAMETHASONE. FAMILY HISTORY: Parkinson's. SOCIAL HISTORY: She does not drink, smoke or take drugs. She lives at home with her daughter. MEDICATIONS: Reviewed, please refer to MRAD. REVIEW OF SYSTEMS: Unable to obtain. The patient is confused and shaking. PHYSICAL EXAMINATION: VITALS: Within normal limits and are stable. GENERAL: No apparent distress. Alert and oriented. HEENT: Head is normocephalic, atraumatic, pupils were equally round and reactive to light and accommodation. NECK: Supple, no JVD, no thyromegaly was noted. LUNGS: Clear to auscultation in all lung martinez without rhonchi or wheezing. HEART: RRR, S1, S2 present. Peripheral pulses intact, no obvious murmurs were noted. ABDOMEN: Soft, nontender. Positive bowel sounds no organomegaly, normal bowel sounds. EXTREMITIES: Without any cyanosis, clubbing, or edema. Pedal pulses intact, Homans sign is negative. NEUROLOGIC: She is confused, anxious and shaking. PSYCHIATRIC: Normal affect, normal mood. Stable. SKIN: No ulcerations or rashes, good skin turgor, no jaundice. VASCULAR: Good capillary refill, neurovascular bundle appears to be intact. LABORATORY DATA: Hemoglobin is 11.6. Sodium is 131, BUN is 40, creatinine 1.2, glucose 84. ASSESSMENT AND PLAN: Probable transient ischemic attack. The patient is being admitted. We will consult Neurology. She is probably going to get an MRI tomorrow. We will do PT, OT and speech therapy. DVT prophylaxis. Full Code. Continue home medicines plus we might have to increase her aspirin. LONG-TERM PROGNOSIS: Guarded. EWA CHAPPELL DO DR: BRIANA/baldomero JOB#: [id number] / [id number]
[2019-03-19 21:31] VITALS: BP 122/66
[2019-03-19] MEDS ORDERED: MIRT45TA58 PO (22:22)
[2019-03-19] MEDS ORDERED: GLIP5TAB10 PO (22:22)
[2019-03-19] MEDS ORDERED: POLY17PO29 PO (22:22)
[2019-03-19] MEDS ORDERED: MAGN400T44 PO (22:22)
[2019-03-19] MEDS ORDERED: CLON0.1T PO (22:22)
[2019-03-19] MEDS ORDERED: OXYC10TA PO (22:22)
[2019-03-19] MEDS ORDERED: ATOR20TA58 PO (22:22)
[2019-03-19] MEDS: ATORVASTATIN CALCIUM 20 MG TABLET PO SCH (23:00)
[2019-03-19] MEDS: CARBIDOPA/LEVODOPA 25/100MG TABLET PO SCH (23:13)
[2019-03-19] MEDS: LIDOCAINE (700MG/PATCH) PATCH. TP SCH (23:13)
[2019-03-19] MEDS: PRIMIDONE 50 MG TABLET PO SCH (23:14)
[2019-03-19] MEDS: MIRTAZAPINE 15 MG TABLET PO SCH (23:14)
[2019-03-19] MEDS: CLOPIDOGREL BISULFATE 75 MG TABLET PO SCH (23:14)
[2019-03-19] MEDS: METHOCARBAMOL 750 MG TABLET PO SCH (23:14)
[2019-03-19] MEDS: DULoxetine HCL 30 MG CAPSULE.DR PO SCH (23:14)
[2019-03-19] MEDS: hydrALAZINE 25 MG TABLET PO SCH (23:14)
[2019-03-19] MEDS: busPIRone 5 MG TABLET. PO SCH (23:14)
[2019-03-19] MEDS: LORazepam 0.5 MG TABLET PO SCH (23:15)
[2019-03-19] MEDS: oxyCODONE IR 5 MG TABLET PO SCH (23:15)
[2019-03-19] MEDS: DONEPEZIL HCL 10 MG TABLET. PO SCH (23:15)
[2019-03-19] MEDS: rOPINIRole 1 MG TABLET. PO SCH (23:15)
[2019-03-19] MEDS: GABAPENTIN 300 MG CAPSULE. PO SCH (23:15)
[2019-03-19] MEDS: ZOLPIDEM 5 MG TABLET. PO SCH (23:15)
[2019-03-19 23:26] VITALS: BP 114/40
[2019-03-20 03:48] VITALS: BP 118/64
[2019-03-20 05:47] LABS: CHOLESTEROL/HDL RATIO 1.8
[2019-03-20] MEDS: LEVOTHYROXINE 150 MCG TABLET PO SCH (05:48)
[2019-03-20 07:00] VITALS: BP 170/72
--- NOTE | 2019-03-20 07:04 | EKG ---
[facility] [address] [place] [address] Test Date: 2019-03-19 Test Time: 16:53:59 Pat Name: LAYLA ROSSI Department: Room: Gender: F Mixer Helper: : 1945 Requested By: PHYLLIS BLOCK Order Number: [id number] Reading MD: Measurements Intervals [place] Rate: 65 P: 55 OR: 166 QRS: -13 QRSD: 82 T: 0 QT: 394 QTc: 414 Interpretive Statements SINUS RHYTHM LEFT ATRIAL ABNORMALITY LEFTWARD AXIS QRS(T) CONTOUR ABNORMALITY CONSIDER INFERIOR INFARCT ABNORMAL ECG No previous ECG available for comparison
[2019-03-20] MEDS ORDERED: PANTOPRAZOLE 40 MG TABLET.DR. PO SCH (07:30)
[2019-03-20] MEDS: BUDESONIDE 0.5 MG/2 ML NEBU. NEB SCH ×2 (07:57→20:29)
[2019-03-20] MEDS: ALBUTEROL SULFATE 2.5 MG/3 ML NEBU. NEB SCH ×4 (07:57→20:00)
[2019-03-20] MEDS ORDERED: NON FORMULARY ITEM (Budesonide/Formoterol Fumarate (Symbicort 80-4.5 Mcg Inhaler) 2 PUFF) IH SCH (09:00)
[2019-03-20] MEDS ORDERED: LACTOBACILLUS RHAMNOSUS GG 1 CAPSULE. PO SCH (09:00)
[2019-03-20] MEDS ORDERED: C.DIFF MED SCREEN BY RX. MC ONE (09:00)
[2019-03-20] MEDS: POLYETHYLENE GLYCOL 3350 17 GM PACKET. PO SCH (09:01)
[2019-03-20] MEDS: busPIRone 5 MG TABLET. PO SCH ×3 (09:05→21:51)
[2019-03-20] MEDS: oxyCODONE IR 5 MG TABLET PO SCH ×3 (09:05→21:51)
[2019-03-20] MEDS: METHOCARBAMOL 750 MG TABLET PO SCH ×3 (09:06→21:52)
[2019-03-20] MEDS: CALCIUM POLYCARBOPHIL 625 MG TABLET PO SCH ×2 (09:06→21:52)
[2019-03-20] MEDS: VITAMIN E 200 UNIT CAPSULE. PO SCH (09:06)
[2019-03-20] MEDS: glipiZIDE 5 MG TABLET PO SCH (09:07)
[2019-03-20] MEDS: rOPINIRole 1 MG TABLET. PO SCH ×3 (09:07→21:52)
[2019-03-20] MEDS: MELOXICAM 7.5 MG TABLET PO SCH (09:07)
[2019-03-20] MEDS: CHOLECALCIFEROL (VITAMIN D3) 5,000 UNIT CAPSULE PO SCH (09:07)
[2019-03-20] MEDS: MAGNESIUM OXIDE 400 MG TABLET PO SCH (09:07)
[2019-03-20] MEDS: hydrALAZINE 25 MG TABLET PO SCH ×2 (09:09→17:58)
[2019-03-20] MEDS: GABAPENTIN 300 MG CAPSULE. PO SCH ×3 (09:09→21:51)
[2019-03-20] MEDS: LORazepam 0.5 MG TABLET PO SCH ×3 (09:09→17:56)
[2019-03-20] MEDS: ASPIRIN ENTERIC COATED 81 MG TABLET.DR. PO SCH (09:09)
[2019-03-20] MEDS: FERROUS SULFATE 325 MG TABLET. PO SCH (09:09)
[2019-03-20] MEDS: DULoxetine HCL 30 MG CAPSULE.DR PO SCH ×2 (09:10→21:53)
[2019-03-20] MEDS: LISINOPRIL 20 MG TABLET PO SCH (09:10)
[2019-03-20] MEDS: CARBIDOPA/LEVODOPA 25/100MG TABLET PO SCH ×3 (09:49→17:56)
[2019-03-20 11:00] VITALS: BP 155/47
--- NOTE | 2019-03-20 11:46 | PDOC ---
PROGRESS NOTES History of Present Illness History of Present Illness ASSESSMENT AND PLAN: IMPRESSION: No acute intracranial findings. on ct head Probable transient ischemic attack. MORBID OBESITY mild hyponatremia, volume excess suspected hypertension admitted. consult Neurology. MRI head PT, OT speech therapy. DVT prophylaxis. Full Code. home meds increase her aspirin. fluid restriction bmp today urinary na, random 37 min pt exam, chart review, > 50% of time spent with exam, chart review, pt care coordination Vitals Vitals Vital Signs Date Time Temp Pulse Resp B/P (MAP) Pulse Ox O2 Delivery O2 Flow Rate FiO2 03/20/19 11:00 98.3 61 18 155/47 (83) 96 Room Air 98.3 Physical Exam Physical Exam PHYSICAL EXAMINATION: VITALS: Within normal limits and are stable. GENERAL: No apparent distress. Alert and oriented. HEENT: Head is normocephalic, atraumatic, pupils were equally round and reactive to light and accommodation. NECK: Supple, no JVD, no thyromegaly was noted. LUNGS: Clear to auscultation in all lung martinez without rhonchi or wheezing. HEART: RRR, S1, S2 present. Peripheral pulses intact, no obvious murmurs were noted. ABDOMEN: Soft, nontender. Positive bowel sounds no organomegaly, normal bowel sounds. EXTREMITIES: Without any cyanosis, clubbing, or edema. Pedal pulses intact, Homans sign is negative. NEUROLOGIC: confused, anxious calm PSYCHIATRIC: Normal affect, normal mood. Stable. SKIN: No ulcerations or rashes, good skin turgor, no jaundice. VASCULAR: Good capillary refill, neurovascular bundle appears to be intact. General: Alert, Oriented X3, Cooperative, No acute distress Heart: Regular rate Lungs: Clear Abdomen: Normal bowel sounds, Soft Extremities: No cyanosis, No edema Labs LABS CT HEAD INDICATION: Neurological changes COMPARISON: 08/14/2018 Exposure: One or more of the following individualized dose reduction techniques were utilized for this examination: 1. Automated exposure control 2. Adjustment of the mA and/or kV according to patient size 3. Use of iterative reconstruction technique TECHNIQUE: 5 mm contiguous axial images were obtained from the skull base to the vertex in both bone and soft tissue algorithm. FINDINGS: Mild bilateral periventricular white matter hypodensities likely chronic small vessel ischemic disease. No evidence of acute intracranial hemorrhage. No extra-axial fluid collections. No mass effect or midline shift. Ventricular size is appropriate. Basal cisterns are patent. No fractures identified.Brothers-white differentiation is preserved.Globes and orbits are within normal limits. Paranasal sinuses and mastoid air cells are clear. IMPRESSION: No acute intracranial findings. Electronically signed by: Binu Medina MD (03/19/2019 5:25 PM) [facility] Laboratory Tests Test 03/19/19 16:30 03/19/19 17:04 03/19/19 17:44 03/20/19 03:10 Urine Collection Type Unknown Urine Color Yellow Urine Clarity Clear Urine pH 6.0 Urine Specific [place] <=1.005 Urine Protein Negative mg/dL (NEG-TRACE) Urine Glucose (UA) Negative mg/dL (NEG) Urine Ketones (Stick) Negative mg/dL (NEG) Urine Blood Negative (NEG) Urine Nitrite Negative (NEG) Urine Bilirubin Negative (NEG) Urine Urobilinogen Dipstick 0.2 mg/dL (0.2 mg/dL) Urine Leukocyte Esterase Negative (NEG) Urine RBC 0 /HPF (0-2) Urine WBC Rare /HPF (0-4) Urine Squamous Epithelial Cells Occ /LPF Urine Bacteria 0 /HPF (0-FEW) White Blood Count 5.5 x10^3/uL (4.0-11.0) Red Blood Count 3.73 x10^6/uL (3.50-5.40) Hemoglobin 11.6 g/dL (12.0-15.5) Hematocrit 34.2 % (36.0-47.0) Mean Corpuscular Volume 92 fL (79-100) Mean Corpuscular Hemoglobin 31 pg (25-35) Mean Corpuscular Hemoglobin Concent 34 g/dL (31-37) Red Cell Distribution Width 13.1 % (11.5-14.5) Platelet Count 332 x10^3/uL (140-400) Neutrophils (%) (Auto) 55 % (31-73) Lymphocytes (%) (Auto) 31 % (24-48) Monocytes (%) (Auto) 11 % (0-9) Eosinophils (%) (Auto) 3 % (0-3) Basophils (%) (Auto) 1 % (0-3) Neutrophils # (Auto) 3.0 x10^3/uL (1.8-7.7) Lymphocytes # (Auto) 1.7 x10^3/uL (1.0-4.8) Monocytes # (Auto) 0.6 x10^3/uL (0.0-1.1) Eosinophils # (Auto) 0.2 x10^3/uL (0.0-0.7) Basophils # (Auto) 0.0 x10^3/uL (0.0-0.2) Prothrombin Time 12.7 SEC (11.7-14.0) Prothromb Time International Ratio 1.0 (0.8-1.1) Activated Partial Thromboplast Time 25 SEC (24-38) Sodium Level 131 mmol/L (136-145) Potassium Level 4.3 mmol/L (3.5-5.1) Chloride Level 94 mmol/L (98-107) Carbon Dioxide Level 26 mmol/L (21-32) Anion Gap 11 (6-14) Blood Urea Nitrogen 40 mg/dL (7-20) Creatinine 1.2 mg/dL (0.6-1.0) Estimated GFR (Cockcroft-Gault) 44.0 BUN/Creatinine Ratio 33 (6-20) Glucose Level 84 mg/dL (70-99) Lactic Acid Level 0.8 mmol/L (0.4-2.0) Calcium Level 8.5 mg/dL (8.5-10.1) Magnesium Level 2.1 mg/dL (1.8-2.4) Total Bilirubin 0.4 mg/dL (0.2-1.0) Aspartate Amino Transf (AST/SGOT) 32 U/L (15-37) Alanine Aminotransferase (ALT/SGPT) 7 U/L (14-59) Alkaline Phosphatase 115 U/L (46-116) Troponin I Quantitative < 0.017 ng/mL (0.000-0.055) Total Protein 7.0 g/dL (6.4-8.2) Albumin 3.4 g/dL (3.4-5.0) Albumin/Globulin Ratio 0.9 (1.0-1.7) Glucose (Fingerstick) 65 mg/dL (70-99) Triglycerides Level 44 mg/dL (0-150) Cholesterol Level 131 mg/dL (0-200) LDL Cholesterol, Calculated 48 mg/dL (0-100) VLDL Cholesterol, Calculated 9 mg/dL (0-40) Non-HDL Cholesterol Calculated 57 mg/dL (0-129) HDL Cholesterol 74 mg/dL (40-60) Cholesterol/HDL Ratio 1.8 Test 03/20/19 11:15 Glucose (Fingerstick) 98 mg/dL (70-99) Assessment and Plan Assessmemt and Plan Problems Medical Problems: (1) Acute focal neurological deficit, onset within 3-24 hours Status: Acute (2) TIA (transient ischemic attack) Status: Acute Comment Review of Relevant I have reviewed the following items dina (where applicable) has been applied. Labs Laboratory Tests Test 03/19/19 16:30 03/19/19 17:04 03/19/19 17:44 03/20/19 03:10 Urine Collection Type Unknown Urine Color Yellow Urine Clarity Clear Urine pH 6.0 Urine Specific [place] <=1.005 Urine Protein Negative mg/dL (NEG-TRACE) Urine Glucose (UA) Negative mg/dL (NEG) Urine Ketones (Stick) Negative mg/dL (NEG) Urine Blood Negative (NEG) Urine Nitrite Negative (NEG) Urine Bilirubin Negative (NEG) Urine Urobilinogen Dipstick 0.2 mg/dL (0.2 mg/dL) Urine Leukocyte Esterase Negative (NEG) Urine RBC 0 /HPF (0-2) Urine WBC Rare /HPF (0-4) Urine Squamous Epithelial Cells Occ /LPF Urine Bacteria 0 /HPF (0-FEW) White Blood Count 5.5 x10^3/uL (4.0-11.0) Red Blood Count 3.73 x10^6/uL (3.50-5.40) Hemoglobin 11.6 g/dL (12.0-15.5) Hematocrit 34.2 % (36.0-47.0) Mean Corpuscular Volume 92 fL (79-100) Mean Corpuscular Hemoglobin 31 pg (25-35) Mean Corpuscular Hemoglobin Concent 34 g/dL (31-37) Red Cell Distribution Width 13.1 % (11.5-14.5) Platelet Count 332 x10^3/uL (140-400) Neutrophils (%) (Auto) 55 % (31-73) Lymphocytes (%) (Auto) 31 % (24-48) Monocytes (%) (Auto) 11 % (0-9) Eosinophils (%) (Auto) 3 % (0-3) Basophils (%) (Auto) 1 % (0-3) Neutrophils # (Auto) 3.0 x10^3/uL (1.8-7.7) Lymphocytes # (Auto) 1.7 x10^3/uL (1.0-4.8) Monocytes # (Auto) 0.6 x10^3/uL (0.0-1.1) Eosinophils # (Auto) 0.2 x10^3/uL (0.0-0.7) Basophils # (Auto) 0.0 x10^3/uL (0.0-0.2) Prothrombin Time 12.7 SEC (11.7-14.0) Prothromb Time International Ratio 1.0 (0.8-1.1) Activated Partial Thromboplast Time 25 SEC (24-38) Sodium Level 131 mmol/L (136-145) Potassium Level 4.3 mmol/L (3.5-5.1) Chloride Level 94 mmol/L (98-107) Carbon Dioxide Level 26 mmol/L (21-32) Anion Gap 11 (6-14) Blood Urea Nitrogen 40 mg/dL (7-20) Creatinine 1.2 mg/dL (0.6-1.0) Estimated GFR (Cockcroft-Gault) 44.0 BUN/Creatinine Ratio 33 (6-20) Glucose Level 84 mg/dL (70-99) Lactic Acid Level 0.8 mmol/L (0.4-2.0) Calcium Level 8.5 mg/dL (8.5-10.1) Magnesium Level 2.1 mg/dL (1.8-2.4) Total Bilirubin 0.4 mg/dL (0.2-1.0) Aspartate Amino Transf (AST/SGOT) 32 U/L (15-37) Alanine Aminotransferase (ALT/SGPT) 7 U/L (14-59) Alkaline Phosphatase 115 U/L (46-116) Troponin I Quantitative < 0.017 ng/mL (0.000-0.055) Total Protein 7.0 g/dL (6.4-8.2) Albumin 3.4 g/dL (3.4-5.0) Albumin/Globulin Ratio 0.9 (1.0-1.7) Glucose (Fingerstick) 65 mg/dL (70-99) Triglycerides Level 44 mg/dL (0-150) Cholesterol Level 131 mg/dL (0-200) LDL Cholesterol, Calculated 48 mg/dL (0-100) VLDL Cholesterol, Calculated 9 mg/dL (0-40) Non-HDL Cholesterol Calculated 57 mg/dL (0-129) HDL Cholesterol 74 mg/dL (40-60) Cholesterol/HDL Ratio 1.8 Test 03/20/19 11:15 Glucose (Fingerstick) 98 mg/dL (70-99) Laboratory Tests Test 03/19/19 16:30 03/19/19 17:04 03/19/19 17:44 03/20/19 03:10 Urine Collection Type Unknown Urine Color Yellow Urine Clarity Clear Urine pH 6.0 Urine Specific [place] <=1.005 Urine Protein Negative mg/dL (NEG-TRACE) Urine Glucose (UA) Negative mg/dL (NEG) Urine Ketones (Stick) Negative mg/dL (NEG) Urine Blood Negative (NEG) Urine Nitrite Negative (NEG) Urine Bilirubin Negative (NEG) Urine Urobilinogen Dipstick 0.2 mg/dL (0.2 mg/dL) Urine Leukocyte Esterase Negative (NEG) Urine RBC 0 /HPF (0-2) Urine WBC Rare /HPF (0-4) Urine Squamous Epithelial Cells Occ /LPF Urine Bacteria 0 /HPF (0-FEW) White Blood Count 5.5 x10^3/uL (4.0-11.0) Red Blood Count 3.73 x10^6/uL (3.50-5.40) Hemoglobin 11.6 g/dL (12.0-15.5) Hematocrit 34.2 % (36.0-47.0) Mean Corpuscular Volume 92 fL (79-100) Mean Corpuscular Hemoglobin 31 pg (25-35) Mean Corpuscular Hemoglobin Concent 34 g/dL (31-37) Red Cell Distribution Width 13.1 % (11.5-14.5) Platelet Count 332 x10^3/uL (140-400) Neutrophils (%) (Auto) 55 % (31-73) Lymphocytes (%) (Auto) 31 % (24-48) Monocytes (%) (Auto) 11 % (0-9) Eosinophils (%) (Auto) 3 % (0-3) Basophils (%) (Auto) 1 % (0-3) Neutrophils # (Auto) 3.0 x10^3/uL (1.8-7.7) Lymphocytes # (Auto) 1.7 x10^3/uL (1.0-4.8) Monocytes # (Auto) 0.6 x10^3/uL (0.0-1.1) Eosinophils # (Auto) 0.2 x10^3/uL (0.0-0.7) Basophils # (Auto) 0.0 x10^3/uL (0.0-0.2) Prothrombin Time 12.7 SEC (11.7-14.0) Prothromb Time International Ratio 1.0 (0.8-1.1) Activated Partial Thromboplast Time 25 SEC (24-38) Sodium Level 131 mmol/L (136-145) Potassium Level 4.3 mmol/L (3.5-5.1) Chloride Level 94 mmol/L (98-107) Carbon Dioxide Level 26 mmol/L (21-32) Anion Gap 11 (6-14) Blood Urea Nitrogen 40 mg/dL (7-20) Creatinine 1.2 mg/dL (0.6-1.0) Estimated GFR (Cockcroft-Gault) 44.0 BUN/Creatinine Ratio 33 (6-20) Glucose Level 84 mg/dL (70-99) Lactic Acid Level 0.8 mmol/L (0.4-2.0) Calcium Level 8.5 mg/dL (8.5-10.1) Magnesium Level 2.1 mg/dL (1.8-2.4) Total Bilirubin 0.4 mg/dL (0.2-1.0) Aspartate Amino Transf (AST/SGOT) 32 U/L (15-37) Alanine Aminotransferase (ALT/SGPT) 7 U/L (14-59) Alkaline Phosphatase 115 U/L (46-116) Troponin I Quantitative < 0.017 ng/mL (0.000-0.055) Total Protein 7.0 g/dL (6.4-8.2) Albumin 3.4 g/dL (3.4-5.0) Albumin/Globulin Ratio 0.9 (1.0-1.7) Glucose (Fingerstick) 65 mg/dL (70-99) Triglycerides Level 44 mg/dL (0-150) Cholesterol Level 131 mg/dL (0-200) LDL Cholesterol, Calculated 48 mg/dL (0-100) VLDL Cholesterol, Calculated 9 mg/dL (0-40) Non-HDL Cholesterol Calculated 57 mg/dL (0-129) HDL Cholesterol 74 mg/dL (40-60) Cholesterol/HDL Ratio 1.8 Test 03/20/19 11:15 Glucose (Fingerstick) 98 mg/dL (70-99) Medications Current Medications Aspirin (Children'S Aspirin) 324 mg 1X STAT PO Last administered on 03/19/19at 17:50; Start 03/19/19 at 17:32; Stop 03/19/19 at 17:39; Status DC Iohexol (Omnipaque 350 Mg/ml) 60 ml 1X ONCE IV ; Start 03/19/19 at 17:45; Stop 03/19/19 at 17:46; Status DC Lorazepam (Ativan Inj) 1 mg 1X STAT IVP Last administered on 03/19/19at 19:33; Start 03/19/19 at 18:51; Stop 03/19/19 at 18:56; Status DC Pharmacy Consult (C.diff Med Screen By Rx) 1 each 1X ONCE [facility] ; Start 03/20/19 at 09:00; Stop 03/20/19 at 09:01; Status DC Aspirin (Ecotrin) 81 mg DAILYWBKFT PO Last administered on 03/20/19at 09:09; Start 03/20/19 at 08:00 Atorvastatin Calcium (Lipitor) 20 mg HS PO ; Start 03/19/19 at 23:00 Carbidopa/Levodopa (Sinemet 25/100) 3 tab TIDWMEALS PO Last administered on 03/20/19at 09:49; Start 03/19/19 at 23:00 Clonidine HCl (Catapres) 0.1 mg PRN Q1HR PRN PO HYPERTENSION; Start 03/19/19 at 22:00 Clopidogrel Bisulfate (Plavix) 75 mg HS PO Last administered on 03/19/19at 23:14; Start 03/19/19 at 23:00 Diltiazem HCl (Cardizem 24hr Cd) 180 mg DAILY PO Last administered on 03/20/19at 09:07; Start 03/20/19 at 09:00 Donepezil HCl (Aricept) 10 mg HS PO Last administered on 03/19/19at 23:15; Start 03/19/19 at 23:00 Ferrous Sulfate (Feosol) 325 mg DAILY PO Last administered on 03/20/19 09:09; Start 03/20/19 at 09:00 Gabapentin (Neurontin) 300 mg TID PO Last administered on 03/20/19 09:09; Start 03/19/19 at 23:00 Glipizide (Glucotrol) 5 mg DAILY PO Last administered on 03/20/19 09:07; Start 03/20/19 at 09:00 Hydralazine HCl (Apresoline) 25 mg BIDWMEALS PO Last administered on 03/20/19 09:09; Start 03/19/19 at 23:00 Levothyroxine Sodium (Synthroid) 150 mcg DAILY06 PO Last administered on 03/20/19 05:48; Start 03/20/19 at 06:00 Lidocaine (Lidoderm) 1 patch HS TP Last administered on 03/19/19 23:13; Start 03/19/19 at 23:00 Lisinopril (Prinivil) 20 mg DAILY PO Last administered on 03/20/19 09:10; Start 03/20/19 at 09:00 Lorazepam (Ativan) 0.5 mg TIDWMEALS PO Last administered on 03/20/19 09:09; Start 03/19/19 at 23:00 Meloxicam (Mobic) 7.5 mg DAILY PO Last administered on 03/20/19 09:07; Start 03/20/19 at 09:00 Methocarbamol (Robaxin) 750 mg TID PO Last administered on 03/20/19 09:06; Start 03/19/19 at 23:00 Polyethylene Glycol (miraLAX PACKET) 17 gm DAILY PO Last administered on 03/20/19 09:01; Start 03/20/19 at 09:00 Primidone (Mysoline) 100 mg HS PO Last administered on 03/19/19 23:14; Start 03/19/19 at 23:00 Ropinirole HCl (Requip) 1 mg TID PO Last administered on 03/20/19 09:07; Start 03/19/19 at 23:00 Zolpidem Tartrate (Ambien) 5 mg HS PO Last administered on 03/19/19 23:15; Start 03/19/19 at 23:00 Non-Formulary Medication (Budesonide/ Formoterol Fumarate (Symbicort 80-4.5 Mcg Inhaler)) 2 puff BID IH ; Start 03/20/19 at 09:00; Status UNV Buspirone HCl (Buspar) 15 mg TID PO Last administered on 03/20/19 09:05; Sta rt 03/19/19 at 23:00 Vitamin D (Vitamin D3) 5,000 unit DAILY PO Last administered on 03/20/19 09:07; Start 03/20/19 at 09:00 Duloxetine HCl (Cymbalta) 60 mg BID PO Last administered on 03/20/19 09:10; Start 03/19/19 at 23:00 Pantoprazole Sodium (Protonix) 40 mg DAILYAC PO Last administered on 03/20/19 09:07; Start 03/20/19 at 07:30; Stop 03/20/19 at 09:57; Status DC Lactobacillus Rhamnosus (Culturelle) 1 cap DAILY PO Last administered on 03/20/19 09:07; Start 03/20/19 at 09:00; Stop 03/20/19 at 09:56; Status DC Magnesium Oxide (Magnesium Oxide) 400 mg DAILY PO Last administered on 03/20/19 09:07; Start 03/20/19 at 09:00 Non-Formulary Medication (Melatonin ) 10 mg QHS PO ; Start 03/20/19 at 21:00; Status UNV Calcium Polycarbophil (Fibercon) 625 mg BID PO Last administered on 03/20/19 09:06; Start 03/20/19 at 09:00 Mirtazapine (Remeron) 45 mg HS PO Last administered on 03/19/19 23:14; Start 03/19/19 at 23:00 Oxycodone HCl (Roxicodone) 10 mg TID PO Last administered on 03/20/19 09:05; Start 03/19/19 at 23:00 Vitamin E (Vitamin E.) 400 unit DAILY PO Last administered on 03/20/19 09:06; Start 03/20/19 at 09:00 Budesonide (Pulmicort) 0.5 mg RTBID NEB Last administered on 03/20/19 07:57; Start 03/20/19 at 08:00 Albuterol Sulfate (Ventolin Neb Soln) 2.5 mg RTQID NEB Last administered on 03/20/19at 07:57; Start 03/20/19 at 08:00 Lactobacillus Rhamnosus (Culturelle) 1 cap BID PO ; Start 03/20/19 at 21:00 Famotidine (Pepcid) 20 mg DAILY PO ; Start 03/21/19 at 09:00 Active Scripts Active Symbicort 80-4.5 Mcg Inhaler (Budesonide/Formoterol Fumarate) 10.2 Gm Hfa.aer.ad 2 Puff IH BID 30 Days Reported Magnesium Oxide 400 Mg Tablet 400 Mg PO DAILY Atorvastatin Calcium 20 Mg Tablet 20 Mg PO HS Miralax (Polyethylene Glycol 3350) 17 Gm Powd.pack 1 Pkt PO DAILY Oxycodone Hcl Immed.release (Oxycodone Hcl) 10 Mg Tablet 10 Mg PO TID Clonidine Hcl 0.1 Mg Tablet 0.1 Mg PO PRN Q1HR PRN For SBP> 160 May repeat 1 hour after 1st dose if SBP is still >160 Mirtazapine 45 Mg Tablet 45 Mg PO HS Glipizide 5 Mg Tablet 5 Mg PO DAILY Hydralazine Hcl 25 Mg Tablet 1 Tab PO BIDWMEALS Lisinopril 20 Mg Tablet 1 Tab PO DAILY Robaxin-750 (Methocarbamol) 750 Mg Tablet 1 Tab PO TID Meloxicam 7.5 Mg Tablet 1 Tab PO DAILY Probiotic (Lactobacillus Acidophilus) 1 Each Capsule 1 Each PO DAILY Ambien (Zolpidem Tartrate) 5 Mg Tablet 5 Mg PO HS Ferrous Sulfate 325 Mg Tablet 1 Tab PO DAILY Lorazepam 0.5 Mg Tablet 0.5 Mg PO TIDWMEALS Clopidogrel (Clopidogrel Bisulfate) 75 Mg Tablet 75 Mg PO HS Vitamin E (Vitamin E Mixed) 400 Unit Capsule 400 Unit PO DAILY Fiber (Methylcellulose) 500 Mg Tablet 500 Mg PO BID Mysoline (Primidone) 50 Mg Tablet 100 Mg PO HS Vitamin D3 (Cholecalciferol (Vitamin D3)) 5,000 Unit Tablet 1 Tab PO DAILY Melatonin 3 Mg Tablet 10 Mg PO QHS Buspirone Hcl 15 Mg Tablet 1 Tab PO TID Gabapentin (Gabapentin) 300 Mg Capsule 300 Mg PO TID Cartia Xt (Diltiazem Hcl) 180 Mg Cap.er.24h 180 Mg PO DAILY Levothyroxine Sodium 150 Mcg Tablet 1 Tab PO DAILY07 Ropinirole Hcl 1 Mg Tablet 1 Mg PO TID Donepezil Hcl 10 Mg Tablet 1 Tab PO HS Duloxetine Hcl 60 Mg Capsule. 60 Mg PO BID Lidoderm (Lidocaine) 700 Mg Adh..patch 1 Patch TP HS Aspir 81 (Aspirin) 81 Mg Tablet. 1 Tab PO DAILY Carbidopa-Levodopa 25-100 Tab (Carbidopa/Levodopa) 1 Each Tablet 3 Tab PO TIDWMEALS Nexium Capsule (Esomeprazole Magnesium) 40 Mg Capsule. 40 Mg PO DAILY Vitals/I & O Vital Sign - Last 24 Hours 03/19/19 03/19/19 03/19/19 03/19/19 16:15 16:54 17:48 17:54 Temp 99.1 99.1 Pulse 65 66 68 74 Resp 16 18 16 16 B/P (MAP) 175/81 (112) Pulse Ox 97 95 95 96 O2 Delivery Room Air 03/19/19 03/19/19 03/19/19 03/19/19 18:18 18:51 19:17 19:54 Pulse 70 68 68 66 Resp 16 16 16 16 Pulse Ox 96 94 96 93 03/19/19 03/19/19 03/19/19 03/19/19 20:24 21:31 23:14 23:26 Temp 98.8 98.8 Pulse 62 67 67 61 Resp 16 18 16 B/P (MAP) 122/66 (84) 122/66 114/40 (64) Pulse Ox 94 99 94 O2 Delivery Room Air Room Air 03/20/19 03/20/19 03/20/19 03/20/19 03:48 07:00 08:00 09:05 Temp 98.1 98.0 98.1 98.0 Pulse 66 67 Resp 16 16 16 B/P (MAP) 118/64 (82) 170/72 (104) Pulse Ox 92 100 100 O2 Delivery Room Air Room Air Room Air Room Air 03/20/19 03/20/19 03/20/19 03/20/19 09:07 09:09 09:10 11:00 Temp 98.3 98.3 Pulse 67 67 67 61 Resp 18 B/P (MAP) 170/72 170/72 170/72 155/47 (83) Pulse Ox 96 O2 Delivery Room Air Intake and Output 03/19/19 03/19/19 03/20/19 15:00 23:00 07:00 Intake Total 0 ml 0 ml Balance 0 ml 0 ml PITER BERMUDEZ MD Mar 20, 2019 11:46
[2019-03-20] MEDS ORDERED: FLECTOR1 EACH TP (12:58)
[2019-03-20] MEDS: DICLOFENAC SODIUM 1% TOPICAL GEL 100GM TUBE. TP SCH ×2 (13:26→21:50)
[2019-03-20] MEDS ORDERED: MAGNESIUM HYDROXIDE 2,400 MG/30 ML ORAL.SUSP. PO ONE (13:30)
[2019-03-20 13:39] LABS: BASO # 0.1 x10^3/uL (0.0-0.2); BASO % 1 % (0-3); EOS # 0.2 x10^3/uL (0.0-0.7); EOS % 4 % (0-3); HEMATOCRIT 33.6 % (36.0-47.0); HEMOGLOBIN 11.2 g/dL (12.0-15.5); LYMPH # 1.9 x10^3/uL (1.0-4.8); LYMPH % 36 % (24-48); MEAN CORPUSCULAR HEMOGLOBIN 31 pg (25-35); MEAN CORPUSCULAR HGB CONC 34 g/dL (31-37); MEAN CORPUSCULAR VOLUME 92 fL (79-100); MONO # 0.7 x10^3/uL (0.0-1.1); MONO % 12 % (0-9); NEUT # 2.6 x10^3/uL (1.8-7.7); NEUT % 47 % (31-73); PLATELET COUNT 329 x10^3/uL (140-400); RED BLOOD COUNT 3.65 x10^6/uL (3.50-5.40); RED CELL DISTRIBUTION WIDTH 13.6 % (11.5-14.5); WHITE BLOOD COUNT 5.4 x10^3/uL (4.0-11.0)
[2019-03-20] MEDS: cloNIDine HCL 0.1 MG TABLET PO PRN (13:41)
[2019-03-20 14:02] LABS: CALCIUM 8.3 mg/dL (8.5-10.1); GFR 54.3; POTASSIUM 4.4 mmol/L (3.5-5.1)
--- NOTE | 2019-03-20 14:09 | PDOC2 ---
NEUROLOGY CONSULT Date of Admission Date of Admission DATE: 03/20/19 TIME: 13:57 Reason for Consult Reason for Consult: Slurred speech, chronic intermittent. Right LE weakness. Metabolic encephalopathy. Dysarthria, chronic. Confusional episodes. Seizure, Hx. Anisocoria, chronic, left pupil 2-3 mm > right 1-2 mm. PD. AFib. CAD, s/p stent placement. HTN. HLD. Cognitive impairment. Pacemaker. RECOMMENDATIONS/PLAN: Continue Plavix 75 mg daily. Continue ASA 81 mg daily. Continue Sinemet at current dosing. Repeat HCT. 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 Lab: see orders. OT/PT. Discussed in all detail with her daughter at bedside on 03/20/19. Lipid panel: WNL. History of Present Illness The patient is a 74-year-old right-handed female with reportedly history of old stroke with chronic left side weakness. The patient stated that she woke up in the morning on 03/19/19 and felt weak, dizzy and lightheaded. She then went to her neurologist office around 2:30 PM and said she started to have slurred speech around that time and started to drag her right foot and leaning against the wall. Per her daughter, they were told to call her PCP. She was brought to the ER of [facility] in the evening on 03/19/19. Past Medical History Cardiovascular: AFIB, CAD, HTN, Other (mitral regurgitation) Pulmonary: COPD, Pneumonia, Other (sleep apnea) CENTRAL NERVOUS SYSTEM: CVA, Seizure, TIA, Other (Parkinson's) GI: Constipation, GERD, Irritable bowel disease, Peptic Ulcer disease, Other (gastroparesis, diarrhea) Heme/Onc: Other (factor V Leiden deficiency) Psych: Anxiety, Depression Musculoskeletal: low back pain ENT: Other (glaucoma) Renal/: Urinary Incontinence Endocrine: Diabetes, Hypothyroidism Past Surgical History Pacemaker, Cataract Removal, Hernia Repair (umbilical), Tonsillectomy (/adenoids), Hysterectomy, Colon Resection, Other (cardiac catheterization, coronary stent, spinal) Family History Cancer Social History , no alcohol or tobacco Allergies Coded Allergies: Sulfa (Sulfonamide Antibiotics) (Verified Allergy, Intermediate, hives, 11/01/17) dexamethasone (Verified Allergy, Intermediate, 11/01/17) ROS Negative for fever, chills, weight loss, shortness of breath, chest pain, indigestion, hematochezia, melena, and dysuria. Full 14-point review of systems is negative. MEDICATIONS: Refer to [facility] PHYSICAL EXAMINATION: General appearance is in subacute distress. HEENT: Normocephalic and nontraumatic. Eyes, nose, ears, and throat are unremarkable. Neck is supple. No lymphadenopathy. No bruits are heard over the carotid artery. No crepitus. Cardiovascular: S1, S2, regular rate and rhythm. Pulmonary: Clear to auscultation bilaterally. Abdomen: Bowel sounds are positive. Abdomen is soft, nontender, and nondistended. Extremities: No rash, lesions, or edema. No restriction of range of motion NEUROLOGICAL EXAMINATION: Awake. Oriented to time, place and person. Left pupil 2-3 mm, right side 1.5 mm EOMI. CN: no focal findings. Muscle tone: within normal. Muscle strength: 4+ DTR: 2 Plantar reflex: Neutral response bilaterally Gait: not examined while in bed. Sensory exam: no abnormal findings. No cerebellar signs elicited. F-T-N test fine. Current Medications Current Medications Current Medications Aspirin (Children'S Aspirin) 324 mg 1X STAT PO Last administered on 03/19/19at 17:50; Start 03/19/19 at 17:32; Stop 03/19/19 at 17:39; Status DC Iohexol (Omnipaque 350 Mg/ml) 60 ml 1X ONCE IV ; Start 03/19/19 at 17:45; S top 03/19/19 at 17:46; Status DC Lorazepam (Ativan Inj) 1 mg 1X STAT IVP Last administered on 03/19/19at 19:33; Start 03/19/19 at 18:51; Stop 03/19/19 at 18:56; Status DC Pharmacy Consult (C.diff Med Screen By Rx) 1 each 1X ONCE [facility] ; Start 03/20/19 at 09:00; Stop 03/20/19 at 09:01; Status DC Aspirin (Ecotrin) 81 mg DAILYWBKFT PO Last administered on 03/20/19at 09:09; Start 03/20/19 at 08:00 Atorvastatin Calcium (Lipitor) 20 mg HS PO ; Start 03/19/19 at 23:00 Carbidopa/Levodopa (Sinemet 25/100) 3 tab TIDWMEALS PO Last administered on 03/20/19 13:22; Start 03/19/19 at 23:00 Clonidine HCl (Catapres) 0.1 mg PRN Q1HR PRN PO HYPERTENSION Last administered on 03/20/19 13:41; Start 03/19/19 at 22:00 Clopidogrel Bisulfate (Plavix) 75 mg HS PO Last administered on 03/19/19 23:14; Start 03/19/19 at 23:00 Diltiazem HCl (Cardizem 24hr Cd) 180 mg DAILY PO Last administered on 03/20/19 09:07; Start 03/20/19 at 09:00 Donepezil HCl (Aricept) 10 mg HS PO Last administered on 03/19/19 23:15; Sta rt 03/19/19 at 23:00 Ferrous Sulfate (Feosol) 325 mg DAILY PO Last administered on 03/20/19 09:09; Start 03/20/19 at 09:00 Gabapentin (Neurontin) 300 mg TID PO Last administered on 03/20/19 13:22; Start 03/19/19 at 23:00 Glipizide (Glucotrol) 5 mg DAILY PO Last administered on 03/20/19 09:07; Start 03/20/19 at 09:00 Hydralazine HCl (Apresoline) 25 mg BIDWMEALS PO Last administered on 03/20/19 09:09; Start 03/19/19 at 23:00 Levothyroxine Sodium (Synthroid) 150 mcg DAILY06 PO Last administered on 03/20/19 05:48; Start 03/20/19 at 06:00 Lidocaine (Lidoderm) 1 patch HS TP Last administered on 03/19/19 23:13; Star t 03/19/19 at 23:00 Lisinopril (Prinivil) 20 mg DAILY PO Last administered on 03/20/19 09:10; Start 03/20/19 at 09:00 Lorazepam (Ativan) 0.5 mg TIDWMEALS PO Last administered on 03/20/19 13:22; Start 03/19/19 at 23:00 Meloxicam (Mobic) 7.5 mg DAILY PO Last administered on 03/20/19 09:07; Start 03/20/19 at 09:00 Methocarbamol (Robaxin) 750 mg TID PO Last administered on 03/20/19 13:21; Start 03/19/19 at 23:00 Polyethylene Glycol (miraLAX PACKET) 17 gm DAILY PO Last administered on 03/20/19 09:01; Start 03/20/19 at 09:00 Primidone (Mysoline) 100 mg HS PO Last administered on 03/19/19at 23:14; Start 03/19/19 at 23:00 Ropinirole HCl (Requip) 1 mg TID PO Last administered on 03/20/19 13:22; Start 03/19/19 at 23:00 Zolpidem Tartrate (Ambien) 5 mg HS PO Last administered on 03/19/19 23:15; Start 03/19/19 at 23:00 Non-Formulary Medication (Budesonide/ Formoterol Fumarate (Symbicort 80-4.5 Mcg Inhaler)) 2 puff BID IH ; Start 03/20/19 at 09:00; Status UNV Buspirone HCl (Buspar) 15 mg TID PO Last administered on 03/20/19 13:22; Start 03/19/19 at 23:00 Vitamin D (Vitamin D3) 5,000 unit DAILY PO Last administered on 03/20/19 09:07; Start 03/20/19 at 09:00 Duloxetine HCl (Cymbalta) 60 mg BID PO Last administered on 03/20/19 09:10; Start 03/19/19 at 23:00 Pantoprazole Sodium (Protonix) 40 mg DAILYAC PO Last administered on 03/20/19 09:07; Start 03/20/19 at 07:30; Stop 03/20/19 at 09:57; Status DC Lactobacillus Rhamnosus (Culturelle) 1 cap DAILY PO Last administered on 03/20/19 09:07; Start 03/20/19 at 09:00; Stop 03/20/19 at 09:56; Status DC Magnesium Oxide (Magnesium Oxide) 400 mg DAILY PO Last administered on 03/20/19at 09:07; Start 03/20/19 at 09:00 Non-Formulary Medication (Melatonin ) 10 mg QHS PO ; Start 03/20/19 at 21:00; Status UNV Calcium Polycarbophil (Fibercon) 625 mg BID PO Last administered on 03/20/19 09:06; Start 03/20/19 at 09:00 Mirtazapine (Remeron) 45 mg HS PO Last administered on 03/19/19at 23:14; Start 03/19/19 at 23:00 Oxycodone HCl (Roxicodone) 10 mg TID PO Last administered on 03/20/19at 13:23; Start 03/19/19 at 23:00 Vitamin E (Vitamin E.) 400 unit DAILY PO Last administered on 03/20/19at 09:06; Start 03/20/19 at 09:00 Budesonide (Pulmicort) 0.5 mg RTBID NEB Last administered on 03/20/19at 07:57; Start 03/20/19 at 08:00 Albuterol Sulfate (Ventolin Neb Soln) 2.5 mg RTQID NEB Last administered on 03/20/19at 11:46; Start 03/20/19 at 08:00 Lactobacillus Rhamnosus (Culturelle) 1 cap BID PO ; Start 03/20/19 at 21:00 Famotidine (Pepcid) 20 mg DAILY PO ; Start 03/21/19 at 09:00 Magnesium Hydroxide (Milk Of Magnesia) 2,400 mg 1X ONCE PO Last administered on 03/20/19at 13:20; Start 03/20/19 at 13:30; Stop 03/20/19 at 13:31; Status DC Diclofenac Sodium (Voltaren) 1 minnie BID TP Last administered on 03/20/19at 13:26; Start 03/20/19 at 13:30 Active Scripts Active Flector (Diclofenac Epolamine) 1 Each Patch.td12 1 Patch TP BID PRN 30 Days Symbicort 80-4.5 Mcg Inhaler (Budesonide/Formoterol Fumarate) 10.2 Gm Hfa.aer.ad 2 Puff IH BID 30 Days Reported Magnesium Oxide 400 Mg Tablet 400 Mg PO DAILY Atorvastatin Calcium 20 Mg Tablet 20 Mg PO HS Miralax (Polyethylene Glycol 3350) 17 Gm Powd.pack 1 Pkt PO DAILY Oxycodone Hcl Immed.release (Oxycodone Hcl) 10 Mg Tablet 10 Mg PO TID Clonidine Hcl 0.1 Mg Tablet 0.1 Mg PO PRN Q1HR PRN For SBP> 160 May repeat 1 hour after 1st dose if SBP is still >160 Mirtazapine 45 Mg Tablet 45 Mg PO HS Glipizide 5 Mg Tablet 5 Mg PO DAILY Hydralazine Hcl 25 Mg Tablet 1 Tab PO BIDWMEALS Lisinopril 20 Mg Tablet 1 Tab PO DAILY Robaxin-750 (Methocarbamol) 750 Mg Tablet 1 Tab PO TID Meloxicam 7.5 Mg Tablet 1 Tab PO DAILY Probiotic (Lactobacillus Acidophilus) 1 Each Capsule 1 Each PO DAILY Ambien (Zolpidem Tartrate) 5 Mg Tablet 5 Mg PO HS Ferrous Sulfate 325 Mg Tablet 1 Tab PO DAILY Lorazepam 0.5 Mg Tablet 0.5 Mg PO TIDWMEALS Clopidogrel (Clopidogrel Bisulfate) 75 Mg Tablet 75 Mg PO HS Vitamin E (Vitamin E Mixed) 400 Unit Capsule 400 Unit PO DAILY Fiber (Methylcellulose) 500 Mg Tablet 500 Mg PO BID Mysoline (Primidone) 50 Mg Tablet 100 Mg PO HS Vitamin D3 (Cholecalciferol (Vitamin D3)) 5,000 Unit Tablet 1 Tab PO DAILY Melatonin 3 Mg Tablet 10 Mg PO QHS Buspirone Hcl 15 Mg Tablet 1 Tab PO TID Gabapentin (Gabapentin) 300 Mg Capsule 300 Mg PO TID Cartia Xt (Diltiazem Hcl) 180 Mg Cap.er.24h 180 Mg PO DAILY Levothyroxine Sodium 150 Mcg Tablet 1 Tab PO DAILY07 Ropinirole Hcl 1 Mg Tablet 1 Mg PO TID Donepezil Hcl 10 Mg Tablet 1 Tab PO HS Duloxetine Hcl 60 Mg Capsule. 60 Mg PO BID Lidoderm (Lidocaine) 700 Mg Adh..patch 1 Patch TP HS Aspir 81 (Aspirin) 81 Mg Tablet. 1 Tab PO DAILY Carbidopa-Levodopa 25-100 Tab (Carbidopa/Levodopa) 1 Each Tablet 3 Tab PO TIDWMEALS Nexium Capsule (Esomeprazole Magnesium) 40 Mg Capsule. 40 Mg PO DAILY Allergies Allergies: Allergies Coded Allergies Type Severity Reaction Last Updated Verified Sulfa (Sulfonamide Antibiotics) Allergy Intermediate hives 11/01/17 Yes dexamethasone Allergy Intermediate 11/01/17 Yes ROS Review of System The patient denies any associated fevers, chills, headache, ear pain, rhinorrhea, sore throat, stiff neck, productive cough, chest pain, shortness of breath, back or flank pain, abdominal pain, nausea, vomiting, diarrhea, constipation, dysuria, rash, numbness, weakness, tingling, incontinence, difficulty ambulating, or diaphoresis. Physical Exam Physical Exam General: Well developed, well nourished, no acute distress, well appearing HEENT: Pupils equally round and reactive to light, EOMI, no discharge, normal conjunctiva Neck: Supple, no nuchal rigidity, no JVD, trachea midline, no tenderness Cardiac: RRR, no murmurs, no gallops, no rubs Chest/Lungs: CTAB, no wheeze, no rhonchi, no crackles Abdomen: soft, non-distended, no guarding, no peritoneal signs, non-tender Back: No tenderness Extremities: no edema, pulses intact, non-tender,capillary refill <3 sec bilateral upper and lower extremities, Neuro: Alert and oriented x 4, no focal deficits, normal speech Vitals Vitals: Vital Signs Date Time Temp Pulse Resp B/P (MAP) Pulse Ox O2 Delivery O2 Flow Rate FiO2 03/20/19 13:41 64 181/65 03/20/19 13:23 16 Room Air 03/20/19 11:00 98.3 96 98.3 Labs Labs Laboratory Tests Test 03/19/19 16:30 03/19/19 17:04 03/19/19 17:44 03/20/19 03:10 Urine Collection Type Unknown Urine Color Yellow Urine Clarity Clear Urine pH 6.0 Urine Specific [place] <=1.005 Urine Protein Negative mg/dL (NEG-TRACE) Urine Glucose (UA) Negative mg/dL (NEG) Urine Ketones (Stick) Negative mg/dL (NEG) Urine Blood Negative (NEG) Urine Nitrite Negative (NEG) Urine Bilirubin Negative (NEG) Urine Urobilinogen Dipstick 0.2 mg/dL (0.2 mg/dL) Urine Leukocyte Esterase Negative (NEG) Urine RBC 0 /HPF (0-2) Urine WBC Rare /HPF (0-4) Urine Squamous Epithelial Cells Occ /LPF Urine Bacteria 0 /HPF (0-FEW) White Blood Count 5.5 x10^3/uL (4.0-11.0) 5.4 x10^3/uL (4.0-11.0) Red Blood Count 3.73 x10^6/uL (3.50-5.40) 3.65 x10^6/uL (3.50-5.40) Hemoglobin 11.6 g/dL (12.0-15.5) 11.2 g/dL (12.0-15.5) Hematocrit 34.2 % (36.0-47.0) 33.6 % (36.0-47.0) Mean Corpuscular Volume 92 fL (79-100) 92 fL (79-100) Mean Corpuscular Hemoglobin 31 pg (25-35) 31 pg (25-35) Mean Corpuscular Hemoglobin Concent 34 g/dL (31-37) 34 g/dL (31-37) Red Cell Distribution Width 13.1 % (11.5-14.5) 13.6 % (11.5-14.5) Platelet Count 332 x10^3/uL (140-400) 329 x10^3/uL (140-400) Neutrophils (%) (Auto) 55 % (31-73) 47 % (31-73) Lymphocytes (%) (Auto) 31 % (24-48) 36 % (24-48) Monocytes (%) (Auto) 11 % (0-9) 12 % (0-9) Eosinophils (%) (Auto) 3 % (0-3) 4 % (0-3) Basophils (%) (Auto) 1 % (0-3) 1 % (0-3) Neutrophils # (Auto) 3.0 x10^3/uL (1.8-7.7) 2.6 x10^3/uL (1.8-7.7) Lymphocytes # (Auto) 1.7 x10^3/uL (1.0-4.8) 1.9 x10^3/uL (1.0-4.8) Monocytes # (Auto) 0.6 x10^3/uL (0.0-1.1) 0.7 x10^3/uL (0.0-1.1) Eosinophils # (Auto) 0.2 x10^3/uL (0.0-0.7) 0.2 x10^3/uL (0.0-0.7) Basophils # (Auto) 0.0 x10^3/uL (0.0-0.2) 0.1 x10^3/uL (0.0-0.2) Prothrombin Time 12.7 SEC (11.7-14.0) Prothromb Time International Ratio 1.0 (0.8-1.1) Activated Partial Thromboplast Time 25 SEC (24-38) Sodium Level 131 mmol/L (136-145) Potassium Level 4.3 mmol/L (3.5-5.1) Chloride Level 94 mmol/L (98-107) Carbon Dioxide Level 26 mmol/L (21-32) Anion Gap 11 (6-14) Blood Urea Nitrogen 40 mg/dL (7-20) Creatinine 1.2 mg/dL (0.6-1.0) Estimated GFR (Cockcroft-Gault) 44.0 BUN/Creatinine Ratio 33 (6-20) Glucose Level 84 mg/dL (70-99) Lactic Acid Level 0.8 mmol/L (0.4-2.0) Calcium Level 8.5 mg/dL (8.5-10.1) Magnesium Level 2.1 mg/dL (1.8-2.4) Total Bilirubin 0.4 mg/dL (0.2-1.0) Aspartate Amino Transf (AST/SGOT) 32 U/L (15-37) Alanine Aminotransferase (ALT/SGPT) 7 U/L (14-59) Alkaline Phosphatase 115 U/L (46-116) Troponin I Quantitative < 0.017 ng/mL (0.000-0.055) Total Protein 7.0 g/dL (6.4-8.2) Albumin 3.4 g/dL (3.4-5.0) Albumin/Globulin Ratio 0.9 (1.0-1.7) Glucose (Fingerstick) 65 mg/dL (70-99) Triglycerides Level 44 mg/dL (0-150) Cholesterol Level 131 mg/dL (0-200) LDL Cholesterol, Calculated 48 mg/dL (0-100) VLDL Cholesterol, Calculated 9 mg/dL (0-40) Non-HDL Cholesterol Calculated 57 mg/dL (0-129) HDL Cholesterol 74 mg/dL (40-60) Cholesterol/HDL Ratio 1.8 Test 03/20/19 11:15 Glucose (Fingerstick) 98 mg/dL (70-99) Laboratory Tests Test 03/19/19 16:30 03/19/19 17:04 03/19/19 17:44 03/20/19 03:10 Urine Collection Type Unknown Urine Color Yellow Urine Clarity Clear Urine pH 6.0 Urine Specific [place] <=1.005 Urine Protein Negative mg/dL (NEG-TRACE) Urine Glucose (UA) Negative mg/dL (NEG) Urine Ketones (Stick) Negative mg/dL (NEG) Urine Blood Negative (NEG) Urine Nitrite Negative (NEG) Urine Bilirubin Negative (NEG) Urine Urobilinogen Dipstick 0.2 mg/dL (0.2 mg/dL) Urine Leukocyte Esterase Negative (NEG) Urine RBC 0 /HPF (0-2) Urine WBC Rare /HPF (0-4) Urine Squamous Epithelial Cells Occ /LPF Urine Bacteria 0 /HPF (0-FEW) White Blood Count 5.5 x10^3/uL (4.0-11.0) 5.4 x10^3/uL (4.0-11.0) Red Blood Count 3.73 x10^6/uL (3.50-5.40) 3.65 x10^6/uL (3.50-5.40) Hemoglobin 11.6 g/dL (12.0-15.5) 11.2 g/dL (12.0-15.5) Hematocrit 34.2 % (36.0-47.0) 33.6 % (36.0-47.0) Mean Corpuscular Volume 92 fL (79-100) 92 fL (79-100) Mean Corpuscular Hemoglobin 31 pg (25-35) 31 pg (25-35) Mean Corpuscular Hemoglobin Concent 34 g/dL (31-37) 34 g/dL (31-37) Red Cell Distribution Width 13.1 % (11.5-14.5) 13.6 % (11.5-14.5) Platelet Count 332 x10^3/uL (140-400) 329 x10^3/uL (140-400) Neutrophils (%) (Auto) 55 % (31-73) 47 % (31-73) Lymphocytes (%) (Auto) 31 % (24-48) 36 % (24-48) Monocytes (%) (Auto) 11 % (0-9) 12 % (0-9) Eosinophils (%) (Auto) 3 % (0-3) 4 % (0-3) Basophils (%) (Auto) 1 % (0-3) 1 % (0-3) Neutrophils # (Auto) 3.0 x10^3/uL (1.8-7.7) 2.6 x10^3/uL (1.8-7.7) Lymphocytes # (Auto) 1.7 x10^3/uL (1.0-4.8) 1.9 x10^3/uL (1.0-4.8) Monocytes # (Auto) 0.6 x10^3/uL (0.0-1.1) 0.7 x10^3/uL (0.0-1.1) Eosinophils # (Auto) 0.2 x10^3/uL (0.0-0.7) 0.2 x10^3/uL (0.0-0.7) Basophils # (Auto) 0.0 x10^3/uL (0.0-0.2) 0.1 x10^3/uL (0.0-0.2) Prothrombin Time 12.7 SEC (11.7-14.0) Prothromb Time International Ratio 1.0 (0.8-1.1) Activated Partial Thromboplast Time 25 SEC (24-38) Sodium Level 131 mmol/L (136-145) Potassium Level 4.3 mmol/L (3.5-5.1) Chloride Level 94 mmol/L (98-107) Carbon Dioxide Level 26 mmol/L (21-32) Anion Gap 11 (6-14) Blood Urea Nitrogen 40 mg/dL (7-20) Creatinine 1.2 mg/dL (0.6-1.0) Estimated GFR (Cockcroft-Gault) 44.0 BUN/Creatinine Ratio 33 (6-20) Glucose Level 84 mg/dL (70-99) Lactic Acid Level 0.8 mmol/L (0.4-2.0) Calcium Level 8.5 mg/dL (8.5-10.1) Magnesium Level 2.1 mg/dL (1.8-2.4) Total Bilirubin 0.4 mg/dL (0.2-1.0) Aspartate Amino Transf (AST/SGOT) 32 U/L (15-37) Alanine Aminotransferase (ALT/SGPT) 7 U/L (14-59) Alkaline Phosphatase 115 U/L (46-116) Troponin I Quantitative < 0.017 ng/mL (0.000-0.055) Total Protein 7.0 g/dL (6.4-8.2) Albumin 3.4 g/dL (3.4-5.0) Albumin/Globulin Ratio 0.9 (1.0-1.7) Glucose (Fingerstick) 65 mg/dL (70-99) Triglycerides Level 44 mg/dL (0-150) Cholesterol Level 131 mg/dL (0-200) LDL Cholesterol, Calculated 48 mg/dL (0-100) VLDL Cholesterol, Calculated 9 mg/dL (0-40) Non-HDL Cholesterol Calculated 57 mg/dL (0-129) HDL Cholesterol 74 mg/dL (40-60) Cholesterol/HDL Ratio 1.8 Test 03/20/19 11:15 Glucose (Fingerstick) 98 mg/dL (70-99) KELSEY GUTIERRES MD Mar 20, 2019 14:09
--- NOTE | 2019-03-20 14:18 | PDOC2 ---
CARDIAC CONSULT DATE OF CONSULT Date of Consult DATE: 03/20/19 TIME: 14:17 REASON FOR CONSULT Reason for Consult: Hypertension REFERRING PHYSICIAN Referring Physician: Dr. Hollis. SOURCE Source: Chart review, Patient HISTORY OF PRESENT ILLNESS HISTORY OF PRESENT ILLNESS This is a 74 yo female who presented secondary to stroke-like symptoms. Patient reports she wasn't feeling well overall yesterday. Had routine appointment at Neurologist office. During exam, became confused, weak. Had difficulty talking. Was recommended to go to the ED for further evaluation and treatment. Patient continues to feel weak today. Denies any chest pain, palpitations, dizziness, diaphoresis, or nausea/vomiting. Reports blood pressure has been labile. PAST MEDICAL HISTORY Past Medical History Cardiovascular: AFIB (?), CAD, HTN, Hyperlipidemia, Valve insufficiency (MR), O ther (cardiomyopathy) Pulmonary: COPD, Pneumonia CENTRAL NERVOUS SYSTEM: CVA, Seizure, TIA, Other (parkinsons) GI: Constipation Heme/Onc: Other (Factor V leiden) Musculoskeletal: low back pain, Osteoarthritis Rheumatologic: No pertinent hx Infectious disease: No pertinent hx ENT: Other (cataract; glaucoma) Renal/: UTI Endocrine: Hypothyroidism PAST SURGICAL HISTORY Past Surgical History Pacemaker, Cataract Removal, (x3), Hernia Repair, Total knee replacement (bilateral), Tonsillectomy, Hysterectomy, Colectomy (gregg), Other (nasal septum repair; PCI/stent 2015; bladder surgery; bilateral eye surgery, capal tunnel release; back surgery) FAMILY HISTORY Family History: Other (noncontributory ) SOCIAL HISTORY Social History Smoke: Quit (remotely>10 yrs) ALCOHOL: none Drugs: None CURRENT MEDICATIONS CURRENT MEDICATIONS Current Medications Medications (Trade) Dose Ordered Sig/Carlene Route PRN Reason Start Time Stop Time Status Last Admin Dose Admin Aspirin (Children'S Aspirin) 324 mg 1X STAT PO 03/19/19 17:32 03/19/19 17:39 DC 03/19/19 17:50 Lorazepam (Ativan Inj) 1 mg 1X STAT IVP 03/19/19 18:51 03/19/19 18:56 DC 03/19/19 19:33 Aspirin (Ecotrin) 81 mg DAILYWBKFT PO 03/20/19 08:00 03/20/19 09:09 Carbidopa/Levodopa (Sinemet 25/100) 3 tab TIDWMEALS PO 03/19/19 23:00 03/20/19 13:22 Clonidine HCl (Catapres) 0.1 mg PRN Q1HR PRN PO HYPERTENSION 03/19/19 22:00 03/20/19 13:41 Clopidogrel Bisulfate (Plavix) 75 mg HS PO 03/19/19 23:00 03/19/19 23:14 Diltiazem HCl (Cardizem 24hr Cd) 180 mg DAILY PO 03/20/19 09:00 03/20/19 09:07 Donepezil HCl (Aricept) 10 mg HS PO 03/19/19 23:00 03/19/19 23:15 Ferrous Sulfate (Feosol) 325 mg DAILY PO 03/20/19 09:00 03/20/19 09:09 Gabapentin (Neurontin) 300 mg TID PO 03/19/19 23:00 03/20/19 13:22 Glipizide (Glucotrol) 5 mg DAILY PO 03/20/19 09:00 03/20/19 09:07 Hydralazine HCl (Apresoline) 25 mg BIDWMEALS PO 03/19/19 23:00 03/20/19 09:09 Levothyroxine Sodium (Synthroid) 150 mcg DAILY06 PO 03/20/19 06:00 03/20/19 05:48 Lidocaine (Lidoderm) 1 patch HS TP 03/19/19 23:00 03/19/19 23:13 Lisinopril (Prinivil) 20 mg DAILY PO 03/20/19 09:00 03/20/19 09:10 Lorazepam (Ativan) 0.5 mg TIDWMEALS PO 03/19/19 23:00 03/20/19 13:22 Meloxicam (Mobic) 7.5 mg DAILY PO 03/20/19 09:00 03/20/19 09:07 Methocarbamol (Robaxin) 750 mg TID PO 03/19/19 23:00 03/20/19 13:21 Polyethylene Glycol (miraLAX PACKET) 17 gm DAILY PO 03/20/19 09:00 03/20/19 09:01 Primidone (Mysoline) 100 mg HS PO 03/19/19 23:00 03/19/19 23:14 Ropinirole HCl (Requip) 1 mg TID PO 03/19/19 23:00 03/20/19 13:22 Zolpidem Tartrate (Ambien) 5 mg HS PO 03/19/19 23:00 03/19/19 23:15 Buspirone HCl (Buspar) 15 mg TID PO 03/19/19 23:00 03/20/19 13:22 Vitamin D (Vitamin D3) 5,000 unit DAILY PO 03/20/19 09:00 03/20/19 09:07 Duloxetine HCl (Cymbalta) 60 mg BID PO 03/19/19 23:00 03/20/19 09:10 Pantoprazole Sodium (Protonix) 40 mg DAILYAC PO 03/20/19 07:30 03/20/19 09:57 DC 03/20/19 09:07 Lactobacillus Rhamnosus (Culturelle) 1 cap DAILY PO 03/20/19 09:00 03/20/19 09:56 DC 03/20/19 09:07 Magnesium Oxide (Magnesium Oxide) 400 mg DAILY PO 03/20/19 09:00 03/20/19 09:07 Calcium Polycarbophil (Fibercon) 625 mg BID PO 03/20/19 09:00 03/20/19 09:06 Mirtazapine (Remeron) 45 mg HS PO 03/19/19 23:00 03/19/19 23:14 Oxycodone HCl (Roxicodone) 10 mg TID PO 03/19/19 23:00 03/20/19 13:23 Vitamin E (Vitamin E.) 400 unit DAILY PO 03/20/19 09:00 03/20/19 09:06 Budesonide (Pulmicort) 0.5 mg RTBID [facility] 03/20/19 08:00 03/20/19 07:57 Albuterol Sulfate (Ventolin Neb Soln) 2.5 mg RTQID NEB 03/20/19 08:00 03/20/19 11:46 Magnesium Hydroxide (Milk Of Magnesia) 2,400 mg 1X ONCE PO 03/20/19 13:30 03/20/19 13:31 DC 03/20/19 13:20 Diclofenac Sodium (Voltaren) 1 minnie BID TP 03/20/19 13:30 03/20/19 13:26 ALLERGIES ALLERGIES: Coded Allergies: Sulfa (Sulfonamide Antibiotics) (Verified Allergy, Intermediate, hives, 11/01/17) dexamethasone (Verified Allergy, Intermediate, 11/01/17) ROS Review of System 14 point ROS conducted with pertinent positives noted above in HPI. PHYSICAL EXAM PHYSICAL EXAM General: Alert, Oriented X3, Cooperative, No acute distress HEENT: Atraumatic, Mucous membr. moist/pink Lungs: Clear to auscultation, Normal air movement Heart: Regular rate (SR), Other (2/6 systolic murmur to LLS border) Abdomen: Soft, No tenderness Extremities: No cyanosis, No edema Skin: No breakdown, No significant lesion Neuro: Normal speech, Sensation intact, Other (arm tremors) Psych/Mental Status: Mood NL MUSCULOSKELETAL: Osteoarthritic changes both hands VITALS/I&O VITALS/I&O: Vital Signs Date Time Temp Pulse Resp B/P (MAP) Pulse Ox O2 Delivery O2 Flow Rate FiO2 03/20/19 13:41 64 181/65 03/20/19 13:23 16 Room Air 03/20/19 11:00 98.3 96 98.3 I & O 03/19/19 03/19/19 03/20/19 15:00 23:00 07:00 Intake Total 0 ml 0 ml Balance 0 ml 0 ml LABS Lab: Laboratory Tests Test 03/19/19 16:30 03/19/19 17:04 03/19/19 17:44 03/20/19 03:10 Urine Collection Type Unknown Urine Color Yellow Urine Clarity Clear Urine pH 6.0 Urine Specific [place] <=1.005 Urine Protein Negative mg/dL (NEG-TRACE) Urine Glucose (UA) Negative mg/dL (NEG) Urine Ketones (Stick) Negative mg/dL (NEG) Urine Blood Negative (NEG) Urine Nitrite Negative (NEG) Urine Bilirubin Negative (NEG) Urine Urobilinogen Dipstick 0.2 mg/dL (0.2 mg/dL) Urine Leukocyte Esterase Negative (NEG) Urine RBC 0 /HPF (0-2) Urine WBC Rare /HPF (0-4) Urine Squamous Epithelial Cells Occ /LPF Urine Bacteria 0 /HPF (0-FEW) White Blood Count 5.5 x10^3/uL (4.0-11.0) 5.4 x10^3/uL (4.0-11.0) Red Blood Count 3.73 x10^6/uL (3.50-5.40) 3.65 x10^6/uL (3.50-5.40) Hemoglobin 11.6 g/dL (12.0-15.5) L 11.2 g/dL (12.0-15.5) L Hematocrit 34.2 % (36.0-47.0) L 33.6 % (36.0-47.0) L Mean Corpuscular Volume 92 fL (79-100) 92 fL (79-100) Mean Corpuscular Hemoglobin 31 pg (25-35) 31 pg (25-35) Mean Corpuscular Hemoglobin Concent 34 g/dL (31-37) 34 g/dL (31-37) Red Cell Distribution Width 13.1 % (11.5-14.5) 13.6 % (11.5-14.5) Platelet Count 332 x10^3/uL (140-400) 329 x10^3/uL (140-400) Neutrophils (%) (Auto) 55 % (31-73) 47 % (31-73) Lymphocytes (%) (Auto) 31 % (24-48) 36 % (24-48) Monocytes (%) (Auto) 11 % (0-9) H 12 % (0-9) H Eosinophils (%) (Auto) 3 % (0-3) 4 % (0-3) H Basophils (%) (Auto) 1 % (0-3) 1 % (0-3) Neutrophils # (Auto) 3.0 x10^3/uL (1.8-7.7) 2.6 x10^3/uL (1.8-7.7) Lymphocytes # (Auto) 1.7 x10^3/uL (1.0-4.8) 1.9 x10^3/uL (1.0-4.8) Monocytes # (Auto) 0.6 x10^3/uL (0.0-1.1) 0.7 x10^3/uL (0.0-1.1) Eosinophils # (Auto) 0.2 x10^3/uL (0.0-0.7) 0.2 x10^3/uL (0.0-0.7) Basophils # (Auto) 0.0 x10^3/uL (0.0-0.2) 0.1 x10^3/uL (0.0-0.2) Prothrombin Time 12.7 SEC (11.7-14.0) Prothrombin Time INR 1.0 (0.8-1.1) Activated Partial Thromboplast Time 25 SEC (24-38) Sodium Level 131 mmol/L (136-145) L 137 mmol/L (136-145) Potassium Level 4.3 mmol/L (3.5-5.1) 4.4 mmol/L (3.5-5.1) Chloride Level 94 mmol/L (98-107) L 100 mmol/L (98-107) Carbon Dioxide Level 26 mmol/L (21-32) 26 mmol/L (21-32) Anion Gap 11 (6-14) 11 (6-14) Blood Urea Nitrogen 40 mg/dL (7-20) H 36 mg/dL (7-20) H Creatinine 1.2 mg/dL (0.6-1.0) H 1.0 mg/dL (0.6-1.0) Estimated GFR (Cockcroft-Gault) 44.0 54.3 BUN/Creatinine Ratio 33 (6-20) H Glucose Level 84 mg/dL (70-99) 99 mg/dL (70-99) Lactic Acid Level 0.8 mmol/L (0.4-2.0) Calcium Level 8.5 mg/dL (8.5-10.1) 8.3 mg/dL (8.5-10.1) L Magnesium Level 2.1 mg/dL (1.8-2.4) Total Bilirubin 0.4 mg/dL (0.2-1.0) Aspartate Amino Transferase (AST) 32 U/L (15-37) Alanine Aminotransferase (ALT) 7 U/L (14-59) L Alkaline Phosphatase 115 U/L (46-116) Troponin I Quantitative < 0.017 ng/mL (0.000-0.055) Total Protein 7.0 g/dL (6.4-8.2) Albumin 3.4 g/dL (3.4-5.0) Albumin/Globulin Ratio 0.9 (1.0-1.7) L Glucose (Fingerstick) 65 mg/dL (70-99) L Triglycerides Level 44 mg/dL (0-150) Cholesterol Level 131 mg/dL (0-200) LDL Cholesterol, Calculated 48 mg/dL (0-100) VLDL Cholesterol, Calculated 9 mg/dL (0-40) Non-HDL Cholesterol Calculated 57 mg/dL (0-129) HDL Cholesterol 74 mg/dL (40-60) H Cholesterol/HDL Ratio 1.8 Test 03/20/19 11:15 Glucose (Fingerstick) 98 mg/dL (70-99) Laboratory Tests 03/19/19 17:04 03/20/19 03:10 Laboratory Tests 03/19/19 17:04 03/20/19 03:10 ECHOCARDIOGRAM ECHOCARDIOGRAM <Conclusion> The left ventricular systolic function is normal and the ejection fraction is within normal range. The Ejection Fraction is >55%. There is normal LV segmental wall motion. There is a pacemaker in the RV/RA. Doppler and Color Flow revealed trace to mild tricuspid regurgitation with an estimated PAP of 36 mmHg. DATE: 08/13/18 1614 HEART CATH HEART CATH Findings: Coronaries: The left main is normal. The LAD has mild diffuse plaquing in the 20-40% range. The circumflex is a nondominant vessel that is normal. The RCA is normal but the posterolateral branch is 100% occluded at the ostium. The PDA is normal. Ventriculogram: The left ventricular ejection fraction was estimated to be about 50%. There was no gradient across the aortic valve and the left ventricular end-diastolic pressure was 14 mmHg. After this was evaluated I decided to proceed to try to open the posterolateral branch of the RCA. The patient was fully heparinized and then I engage the ostium of the RCA with a guiding catheter. A guidewire was advanced all the way to the bifurcation of the PDA and the posterolateral branch and we then enter the posterolateral branch were able to cross the occlusion a 2.0 mm balloon was then advanced and a PTCA of the posterolateral branch ostium was then done after which the balloon was removed and a view of the vessel was done. There is still significant residual disease present but there was now flow into the posterolateral branch which appeared to be actually larger than it was initially thought and he gives off a 3 different branches. I then brought a 2.5 mm x 12 mm drug-eluting stent over the guidewire and he was placed in the proximal segment of the posterolateral branch the stent was then deployed and multiple high-pressure inflations were then done. After which the balloon was removed and a view was then done. The previously dilated area is appeared to be well open now there was now very good flow all the way to the distal portion of the posterolateral branch there was no significant residual disease present there did appear to be some thrombus distally therefore the patient was started on a bolus and a drip of Integrilin in addition to the heparin. The patient was now free of chest pains so I decided to terminate the procedure at this time. The sheaths were pulled and Angio-Seal collagen plugs were deployed in place. No apparent bleeding was present therefore a dressing was applied to the groin and the patient was returned to her room in satisfactory condition after tolerating the procedure rather well. I would like to continue with at least 18 hours of Integrilin and 24 hours of heparin. 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 DATE: 05/08/15 6213 ASSESSMENT/PLAN ASSESSMENT/PLAN 1. Hypertension; labile 2. Possible CVA with dysarthria, weakness. Neuro following 3. Metabolic Encephalopathy 4. C/o CVA with left sided weakness. Right LE weakness. 5. Right carotid artery stenosis: moderate per doppler 6. Hx of CV/and parkinsons/dementia 7. CAD; past stent to PLB, clinically stable 8. Hyperlipidemia 9. PAFIB; currently SR 10. PPM in situ: ([facility]) 11. factor V leiden deficiency Recommendations Orthostatic vitals Monitor blood pressure trends. If not orthostatic and blood pressure remains elevated, increase lisinopril to 20mg BID ASA for stroke prevention, poor candidate for fdc anticoagulation due to high fall risk Continue statin, Plavix, ASA Cardizem for rate control. Supportive care Follow neuro MICHAEL Linn APRN Mar 20, 2019 14:18
[2019-03-20 15:00] VITALS: BP 155/53
--- NOTE | 2019-03-20 16:06 | RAD ---
Examination: CT HEAD WO CONTRAST History: Slurred speech, old CVA Comparison/Correlation: 03/19/2019 CT head without contrast Findings: Axial images of the head routine without contrast. Atrophy and chronic ischemic change in the white matter noted. No intracranial hemorrhage, shift, or mass effect. Bony structures are unremarkable. Impression: No acute process. No significant change. PQRS Compliance Statement: One or more of the following individualized dose reduction techniques were utilized for this examination: 1. Automated exposure control 2. Adjustment of the mA and/or kV according to patient size 3. Use of iterative reconstruction technique Electronically signed by: Figueroa Taylor MD (03/20/2019 4:03 PM) [facility]
[2019-03-20 16:54] LABS: BASO % 1 % (0-3); EOS # 0.1 x10^3/uL (0.0-0.7); EOS % 3 % (0-3); HEMATOCRIT 35.3 % (36.0-47.0); HEMOGLOBIN 11.8 g/dL (12.0-15.5); LYMPH # 1.5 x10^3/uL (1.0-4.8); LYMPH % 34 % (24-48); MEAN CORPUSCULAR HEMOGLOBIN 31 pg (25-35); MEAN CORPUSCULAR HGB CONC 33 g/dL (31-37); MEAN CORPUSCULAR VOLUME 93 fL (79-100); MONO # 0.6 x10^3/uL (0.0-1.1); MONO % 12 % (0-9); NEUT # 2.3 x10^3/uL (1.8-7.7); NEUT % 51 % (31-73); PLATELET COUNT 327 x10^3/uL (140-400); RED BLOOD COUNT 3.82 x10^6/uL (3.50-5.40); RED CELL DISTRIBUTION WIDTH 13.2 % (11.5-14.5); WHITE BLOOD COUNT 4.6 x10^3/uL (4.0-11.0)
[2019-03-20 17:07] LABS: CALCIUM 8.5 mg/dL (8.5-10.1); CREATININE 0.9 mg/dL (0.6-1.0); GFR 61.4; POTASSIUM 4.2 mmol/L (3.5-5.1)
[2019-03-20 19:38] VITALS: BP 149/37
[2019-03-20] MEDS ORDERED: NON FORMULARY ITEM (Melatonin 10 MG) PO SCH (21:00)
[2019-03-20] MEDS: LIDOCAINE (700MG/PATCH) PATCH. TP SCH (21:50)
[2019-03-20] MEDS: DONEPEZIL HCL 10 MG TABLET. PO SCH (21:51)
[2019-03-20] MEDS: PRIMIDONE 50 MG TABLET PO SCH (21:52)
[2019-03-20] MEDS: CLOPIDOGREL BISULFATE 75 MG TABLET PO SCH (21:52)
[2019-03-20] MEDS: ZOLPIDEM 5 MG TABLET. PO SCH (21:52)
[2019-03-20] MEDS: ATORVASTATIN CALCIUM 20 MG TABLET PO SCH (21:52)
[2019-03-20] MEDS: LACTOBACILLUS RHAMNOSUS GG 1 CAPSULE. PO SCH (21:54)
[2019-03-20] MEDS: MIRTAZAPINE 15 MG TABLET PO SCH (21:54)
[2019-03-20 23:49] VITALS: BP 134/42
[2019-03-21] VITALS (8 sets, daily range): BP systolic 130–167; BP diastolic 36–74
[2019-03-21] MEDS: LEVOTHYROXINE 150 MCG TABLET PO SCH (05:18)
[2019-03-21 05:52] LABS: ALBUMIN 3.1 g/dL (3.4-5.0); ALBUMIN/GLOBULIN RATIO 0.9 (1.0-1.7); CALCIUM 8.6 mg/dL (8.5-10.1); GFR 54.3; POTASSIUM 4.6 mmol/L (3.5-5.1); TOTAL BILIRUBIN 0.3 mg/dL (0.2-1.0); TOTAL PROTEIN 6.4 g/dL (6.4-8.2)
[2019-03-21] MEDS: BUDESONIDE 0.5 MG/2 ML NEBU. NEB SCH ×2 (07:34→20:34)
[2019-03-21] MEDS: ALBUTEROL SULFATE 2.5 MG/3 ML NEBU. NEB SCH ×4 (07:34→20:34)
--- NOTE | 2019-03-21 08:55 | PDOC ---
PROGRESS NOTES History of Present Illness History of Present Illness ASSESSMENT AND PLAN: IMPRESSION: No acute intracranial findings. on ct head Probable transient ischemic attack. MORBID OBESITY mild hyponatremia, volume excess suspected hypertension admitted. consult Neurology. 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 PT, OT speech therapy. DVT prophylaxis. Full Code. home meds increase her aspirin. fluid restriction bmp today urinary na, random 38 min pt exam, chart review, > 50% of time spent with exam, chart review, pt care coordination Vitals Vitals Vital Signs Date Time Temp Pulse Resp B/P (MAP) Pulse Ox O2 Delivery O2 Flow Rate FiO2 03/21/19 07:34 98 Room Air 03/21/19 07:00 98.6 69 18 130/67 (88) 98.6 Physical Exam Physical Exam PHYSICAL EXAMINATION: VITALS: Within normal limits and are stable. GENERAL: No apparent distress. Alert and oriented. HEENT: Head is normocephalic, atraumatic, pupils were equally round and reactive to light and accommodation. NECK: Supple, no JVD, no thyromegaly was noted. LUNGS: Clear to auscultation in all lung martinez without rhonchi or wheezing. HEART: RRR, S1, S2 present. Peripheral pulses intact, no obvious murmurs were noted. ABDOMEN: Soft, nontender. Positive bowel sounds no organomegaly, normal bowel sounds. EXTREMITIES: Without any cyanosis, clubbing, or edema. Pedal pulses intact, Homans sign is negative. NEUROLOGIC: confused, anxious calm PSYCHIATRIC: Normal affect, normal mood. Stable. SKIN: No ulcerations or rashes, good skin turgor, no jaundice. VASCULAR: Good capillary refill, neurovascular bundle appears to be intact. General: Alert, Oriented X3, Cooperative, No acute distress Heart: Regular rate, Normal S1 Lungs: Clear Abdomen: Normal bowel sounds, Soft Extremities: No cyanosis, No edema Labs LABS Laboratory Tests Test 03/20/19 11:15 03/20/19 16:45 03/20/19 16:47 03/20/19 20:22 Glucose (Fingerstick) 98 mg/dL (70-99) 79 mg/dL (70-99) 114 mg/dL (70-99) White Blood Count 4.6 x10^3/uL (4.0-11.0) Red Blood Count 3.82 x10^6/uL (3.50-5.40) Hemoglobin 11.8 g/dL (12.0-15.5) Hematocrit 35.3 % (36.0-47.0) Mean Corpuscular Volume 93 fL (79-100) Mean Corpuscular Hemoglobin 31 pg (25-35) Mean Corpuscular Hemoglobin Concent 33 g/dL (31-37) Red Cell Distribution Width 13.2 % (11.5-14.5) Platelet Count 327 x10^3/uL (140-400) Neutrophils (%) (Auto) 51 % (31-73) Lymphocytes (%) (Auto) 34 % (24-48) Monocytes (%) (Auto) 12 % (0-9) Eosinophils (%) (Auto) 3 % (0-3) Basophils (%) (Auto) 1 % (0-3) Neutrophils # (Auto) 2.3 x10^3/uL (1.8-7.7) Lymphocytes # (Auto) 1.5 x10^3/uL (1.0-4.8) Monocytes # (Auto) 0.6 x10^3/uL (0.0-1.1) Eosinophils # (Auto) 0.1 x10^3/uL (0.0-0.7) Basophils # (Auto) 0.0 x10^3/uL (0.0-0.2) Sodium Level 139 mmol/L (136-145) Potassium Level 4.2 mmol/L (3.5-5.1) Chloride Level 100 mmol/L (98-107) Carbon Dioxide Level 34 mmol/L (21-32) Anion Gap 5 (6-14) Blood Urea Nitrogen 26 mg/dL (7-20) Creatinine 0.9 mg/dL (0.6-1.0) Estimated GFR (Cockcroft-Gault) 61.4 Glucose Level 88 mg/dL (70-99) Calcium Level 8.5 mg/dL (8.5-10.1) Test 03/21/19 04:00 03/21/19 07:50 Sodium Level 138 mmol/L (136-145) Potassium Level 4.6 mmol/L (3.5-5.1) Chloride Level 101 mmol/L (98-107) Carbon Dioxide Level 27 mmol/L (21-32) Anion Gap 10 (6-14) Blood Urea Nitrogen 23 mg/dL (7-20) Creatinine 1.0 mg/dL (0.6-1.0) Estimated GFR (Cockcroft-Gault) 54.3 BUN/Creatinine Ratio 23 (6-20) Glucose Level 90 mg/dL (70-99) Calcium Level 8.6 mg/dL (8.5-10.1) Total Bilirubin 0.3 mg/dL (0.2-1.0) Aspartate Amino Transf (AST/SGOT) 28 U/L (15-37) Alanine Aminotransferase (ALT/SGPT) 18 U/L (14-59) Alkaline Phosphatase 99 U/L (46-116) Total Protein 6.4 g/dL (6.4-8.2) Albumin 3.1 g/dL (3.4-5.0) Albumin/Globulin Ratio 0.9 (1.0-1.7) Glucose (Fingerstick) 109 mg/dL (70-99) Assessment and Plan Assessmemt and Plan Problems Medical Problems: (1) Acute focal neurological deficit, onset within 3-24 hours Status: Acute (2) TIA (transient ischemic attack) Status: Acute Comment Review of Relevant I have reviewed the following items dina (where applicable) has been applied. Labs Laboratory Tests Test 03/19/19 16:30 03/19/19 17:04 03/19/19 17:44 03/20/19 03:10 Urine Collection Type Unknown Urine Color Yellow Urine Clarity Clear Urine pH 6.0 Urine Specific [place] <=1.005 Urine Protein Negative mg/dL (NEG-TRACE) Urine Glucose (UA) Negative mg/dL (NEG) Urine Ketones (Stick) Negative mg/dL (NEG) Urine Blood Negative (NEG) Urine Nitrite Negative (NEG) Urine Bilirubin Negative (NEG) Urine Urobilinogen Dipstick 0.2 mg/dL (0.2 mg/dL) Urine Leukocyte Esterase Negative (NEG) Urine RBC 0 /HPF (0-2) Urine WBC Rare /HPF (0-4) Urine Squamous Epithelial Cells Occ /LPF Urine Bacteria 0 /HPF (0-FEW) White Blood Count 5.5 x10^3/uL (4.0-11.0) 5.4 x10^3/uL (4.0-11.0) Red Blood Count 3.73 x10^6/uL (3.50-5.40) 3.65 x10^6/uL (3.50-5.40) Hemoglobin 11.6 g/dL (12.0-15.5) 11.2 g/dL (12.0-15.5) Hematocrit 34.2 % (36.0-47.0) 33.6 % (36.0-47.0) Mean Corpuscular Volume 92 fL (79-100) 92 fL (79-100) Mean Corpuscular Hemoglobin 31 pg (25-35) 31 pg (25-35) Mean Corpuscular Hemoglobin Concent 34 g/dL (31-37) 34 g/dL (31-37) Red Cell Distribution Width 13.1 % (11.5-14.5) 13.6 % (11.5-14.5) Platelet Count 332 x10^3/uL (140-400) 329 x10^3/uL (140-400) Neutrophils (%) (Auto) 55 % (31-73) 47 % (31-73) Lymphocytes (%) (Auto) 31 % (24-48) 36 % (24-48) Monocytes (%) (Auto) 11 % (0-9) 12 % (0-9) Eosinophils (%) (Auto) 3 % (0-3) 4 % (0-3) Basophils (%) (Auto) 1 % (0-3) 1 % (0-3) Neutrophils # (Auto) 3.0 x10^3/uL (1.8-7.7) 2.6 x10^3/uL (1.8-7.7) Lymphocytes # (Auto) 1.7 x10^3/uL (1.0-4.8) 1.9 x10^3/uL (1.0-4.8) Monocytes # (Auto) 0.6 x10^3/uL (0.0-1.1) 0.7 x10^3/uL (0.0-1.1) Eosinophils # (Auto) 0.2 x10^3/uL (0.0-0.7) 0.2 x10^3/uL (0.0-0.7) Basophils # (Auto) 0.0 x10^3/uL (0.0-0.2) 0.1 x10^3/uL (0.0-0.2) Prothrombin Time 12.7 SEC (11.7-14.0) Prothromb Time International Ratio 1.0 (0.8-1.1) Activated Partial Thromboplast Time 25 SEC (24-38) Sodium Level 131 mmol/L (136-145) 137 mmol/L (136-145) Potassium Level 4.3 mmol/L (3.5-5.1) 4.4 mmol/L (3.5-5.1) Chloride Level 94 mmol/L (98-107) 100 mmol/L (98-107) Carbon Dioxide Level 26 mmol/L (21-32) 26 mmol/L (21-32) Anion Gap 11 (6-14) 11 (6-14) Blood Urea Nitrogen 40 mg/dL (7-20) 36 mg/dL (7-20) Creatinine 1.2 mg/dL (0.6-1.0) 1.0 mg/dL (0.6-1.0) Estimated GFR (Cockcroft-Gault) 44.0 54.3 BUN/Creatinine Ratio 33 (6-20) Glucose Level 84 mg/dL (70-99) 99 mg/dL (70-99) Lactic Acid Level 0.8 mmol/L (0.4-2.0) Calcium Level 8.5 mg/dL (8.5-10.1) 8.3 mg/dL (8.5-10.1) Magnesium Level 2.1 mg/dL (1.8-2.4) Total Bilirubin 0.4 mg/dL (0.2-1.0) Aspartate Amino Transf (AST/SGOT) 32 U/L (15-37) Alanine Aminotransferase (ALT/SGPT) 7 U/L (14-59) Alkaline Phosphatase 115 U/L (46-116) Troponin I Quantitative < 0.017 ng/mL (0.000-0.055) Total Protein 7.0 g/dL (6.4-8.2) Albumin 3.4 g/dL (3.4-5.0) Albumin/Globulin Ratio 0.9 (1.0-1.7) Glucose (Fingerstick) 65 mg/dL (70-99) Triglycerides Level 44 mg/dL (0-150) Cholesterol Level 131 mg/dL (0-200) LDL Cholesterol, Calculated 48 mg/dL (0-100) VLDL Cholesterol, Calculated 9 mg/dL (0-40) Non-HDL Cholesterol Calculated 57 mg/dL (0-129) HDL Cholesterol 74 mg/dL (40-60) Cholesterol/HDL Ratio 1.8 Vitamin B12 Level 398 pg/mL (247-911) Thyroid Stimulating Hormone (TSH) 0.747 uIU/mL (0.358-3.74) Test 03/20/19 11:15 03/20/19 16:45 03/20/19 16:47 03/20/19 20:22 Glucose (Fingerstick) 98 mg/dL (70-99) 79 mg/dL (70-99) 114 mg/dL (70-99) White Blood Count 4.6 x10^3/uL (4.0-11.0) Red Blood Count 3.82 x10^6/uL (3.50-5.40) Hemoglobin 11.8 g/dL (12.0-15.5) Hematocrit 35.3 % (36.0-47.0) Mean Corpuscular Volume 93 fL (79-100) Mean Corpuscular Hemoglobin 31 pg (25-35) Mean Corpuscular Hemoglobin Concent 33 g/dL (31-37) Red Cell Distribution Width 13.2 % (11.5-14.5) Platelet Count 327 x10^3/uL (140-400) Neutrophils (%) (Auto) 51 % (31-73) Lymphocytes (%) (Auto) 34 % (24-48) Monocytes (%) (Auto) 12 % (0-9) Eosinophils (%) (Auto) 3 % (0-3) Basophils (%) (Auto) 1 % (0-3) Neutrophils # (Auto) 2.3 x10^3/uL (1.8-7.7) Lymphocytes # (Auto) 1.5 x10^3/uL (1.0-4.8) Monocytes # (Auto) 0.6 x10^3/uL (0.0-1.1) Eosinophils # (Auto) 0.1 x10^3/uL (0.0-0.7) Basophils # (Auto) 0.0 x10^3/uL (0.0-0.2) Sodium Level 139 mmol/L (136-145) Potassium Level 4.2 mmol/L (3.5-5.1) Chloride Level 100 mmol/L (98-107) Carbon Dioxide Level 34 mmol/L (21-32) Anion Gap 5 (6-14) Blood Urea Nitrogen 26 mg/dL (7-20) Creatinine 0.9 mg/dL (0.6-1.0) Estimated GFR (Cockcroft-Gault) 61.4 Glucose Level 88 mg/dL (70-99) Calcium Level 8.5 mg/dL (8.5-10.1) Test 03/21/19 04:00 03/21/19 07:50 Sodium Level 138 mmol/L (136-145) Potassium Level 4.6 mmol/L (3.5-5.1) Chloride Level 101 mmol/L (98-107) Carbon Dioxide Level 27 mmol/L (21-32) Anion Gap 10 (6-14) Blood Urea Nitrogen 23 mg/dL (7-20) Creatinine 1.0 mg/dL (0.6-1.0) Estimated GFR (Cockcroft-Gault) 54.3 BUN/Creatinine Ratio 23 (6-20) Glucose Level 90 mg/dL (70-99) Calcium Level 8.6 mg/dL (8.5-10.1) Total Bilirubin 0.3 mg/dL (0.2-1.0) Aspartate Amino Transf (AST/SGOT) 28 U/L (15-37) Alanine Aminotransferase (ALT/SGPT) 18 U/L (14-59) Alkaline Phosphatase 99 U/L (46-116) Total Protein 6.4 g/dL (6.4-8.2) Albumin 3.1 g/dL (3.4-5.0) Albumin/Globulin Ratio 0.9 (1.0-1.7) Glucose (Fingerstick) 109 mg/dL (70-99) Laboratory Tests Test 03/20/19 11:15 03/20/19 16:45 03/20/19 16:47 03/20/19 20:22 Glucose (Fingerstick) 98 mg/dL (70-99) 79 mg/dL (70-99) 114 mg/dL (70-99) White Blood Count 4.6 x10^3/uL (4.0-11.0) Red Blood Count 3.82 x10^6/uL (3.50-5.40) Hemoglobin 11.8 g/dL (12.0-15.5) Hematocrit 35.3 % (36.0-47.0) Mean Corpuscular Volume 93 fL (79-100) Mean Corpuscular Hemoglobin 31 pg (25-35) Mean Corpuscular Hemoglobin Concent 33 g/dL (31-37) Red Cell Distribution Width 13.2 % (11.5-14.5) Platelet Count 327 x10^3/uL (140-400) Neutrophils (%) (Auto) 51 % (31-73) Lymphocytes (%) (Auto) 34 % (24-48) Monocytes (%) (Auto) 12 % (0-9) Eosinophils (%) (Auto) 3 % (0-3) Basophils (%) (Auto) 1 % (0-3) Neutrophils # (Auto) 2.3 x10^3/uL (1.8-7.7) Lymphocytes # (Auto) 1.5 x10^3/uL (1.0-4.8) Monocytes # (Auto) 0.6 x10^3/uL (0.0-1.1) Eosinophils # (Auto) 0.1 x10^3/uL (0.0-0.7) Basophils # (Auto) 0.0 x10^3/uL (0.0-0.2) Sodium Level 139 mmol/L (136-145) Potassium Level 4.2 mmol/L (3.5-5.1) Chloride Level 100 mmol/L (98-107) Carbon Dioxide Level 34 mmol/L (21-32) Anion Gap 5 (6-14) Blood Urea Nitrogen 26 mg/dL (7-20) Creatinine 0.9 mg/dL (0.6-1.0) Estimated GFR (Cockcroft-Gault) 61.4 Glucose Level 88 mg/dL (70-99) Calcium Level 8.5 mg/dL (8.5-10.1) Test 03/21/19 04:00 03/21/19 07:50 Sodium Level 138 mmol/L (136-145) Potassium Level 4.6 mmol/L (3.5-5.1) Chloride Level 101 mmol/L (98-107) Carbon Dioxide Level 27 mmol/L (21-32) Anion Gap 10 (6-14) Blood Urea Nitrogen 23 mg/dL (7-20) Creatinine 1.0 mg/dL (0.6-1.0) Estimated GFR (Cockcroft-Gault) 54.3 BUN/Creatinine Ratio 23 (6-20) Glucose Level 90 mg/dL (70-99) Calcium Level 8.6 mg/dL (8.5-10.1) Total Bilirubin 0.3 mg/dL (0.2-1.0) Aspartate Amino Transf (AST/SGOT) 28 U/L (15-37) Alanine Aminotransferase (ALT/SGPT) 18 U/L (14-59) Alkaline Phosphatase 99 U/L (46-116) Total Protein 6.4 g/dL (6.4-8.2) Albumin 3.1 g/dL (3.4-5.0) Albumin/Globulin Ratio 0.9 (1.0-1.7) Glucose (Fingerstick) 109 mg/dL (70-99) Medications Current Medications Aspirin (Children'S Aspirin) 324 mg 1X STAT PO Last administered on 03/19/19at 17:50; Start 03/19/19 at 17:32; Stop 03/19/19 at 17:39; Status DC Iohexol (Omnipaque 350 Mg/ml) 60 ml 1X ONCE IV ; Start 03/19/19 at 17:45; Stop 03/19/19 at 17:46; Status DC Lorazepam (Ativan Inj) 1 mg 1X STAT IVP Last administered on 03/19/19at 19:33; Start 03/19/19 at 18:51; Stop 03/19/19 at 18:56; Status DC Pharmacy Consult (C.diff Med Screen By Rx) 1 each 1X ONCE [facility] ; Start 03/20/19 at 09:00; Stop 03/20/19 at 09:01; Status DC Aspirin (Ecotrin) 81 mg DAILYWBKFT PO Last administered on 03/20/19at 09:09; Start 03/20/19 at 08:00 Atorvastatin Calcium (Lipitor) 20 mg HS PO Last administered on 03/20/19at 21:52; Start 03/19/19 at 23:00 Carbidopa/Levodopa (Sinemet 25/100) 3 tab TIDWMEALS PO Last administered on 03/20/19at 17:56; Start 03/19/19 at 23:00 Clonidine HCl (Catapres) 0.1 mg PRN Q1HR PRN PO HYPERTENSION Last administered on 03/20/19 13:41; Start 03/19/19 at 22:00 Clopidogrel Bisulfate (Plavix) 75 mg HS PO Last administered on 03/20/19 21:52; Start 03/19/19 at 23:00 Diltiazem HCl (Cardizem 24hr Cd) 180 mg DAILY PO Last administered on 03/20/19 09:07; Start 03/20/19 at 09:00 Donepezil HCl (Aricept) 10 mg HS PO Last administered on 03/20/19 21:51; Start 03/19/19 at 23:00 Ferrous Sulfate (Feosol) 325 mg DAILY PO Last administered on 03/20/19 09:09; Start 03/20/19 at 09:00 Gabapentin (Neurontin) 300 mg TID PO Last administered on 03/20/19 21:51; Start 03/19/19 at 23:00 Glipizide (Glucotrol) 5 mg DAILY PO Last administered on 03/20/19 09:07; Start 03/20/19 at 09:00 Hydralazine HCl (Apresoline) 25 mg BIDWMEALS PO Last administered on 03/20/19 17:58; Start 03/19/19 at 23:00 Levothyroxine Sodium (Synthroid) 150 mcg DAILY06 PO Last administered on 03/21/19 05:18; Start 03/20/19 at 06:00 Lidocaine (Lidoderm) 1 patch HS TP Last administered on 03/20/19 21:50; Start 03/19/19 at 23:00 Lisinopril (Prinivil) 20 mg DAILY PO Last administered on 03/20/19 09:10; Start 03/20/19 at 09:00 Lorazepam (Ativan) 0.5 mg TIDWMEALS PO Last administered on 03/20/19 17:56; Start 03/19/19 at 23:00 Meloxicam (Mobic) 7.5 mg DAILY PO Last administered on 03/20/19 09:07; Start 03/20/19 at 09:00 Methocarbamol (Robaxin) 750 mg TID PO Last administered on 03/20/19 21:52; Start 03/19/19 at 23:00 Polyethylene Glycol (miraLAX PACKET) 17 gm DAILY PO Last administered on 03/20/19 09:01; Start 03/20/19 at 09:00 Primidone (Mysoline) 100 mg HS PO Last administered on 03/20/19 21:52; Start 03/19/19 at 23:00 Ropinirole HCl (Requip) 1 mg TID PO Last administered on 03/20/19 21:52; Start 03/19/19 at 23:00 Zolpidem Tartrate (Ambien) 5 mg HS PO Last administered on 03/20/19 21:52; S tart 03/19/19 at 23:00 Non-Formulary Medication (Budesonide/ Formoterol Fumarate (Symbicort 80-4.5 Mcg Inhaler)) 2 puff BID IH ; Start 03/20/19 at 09:00; Status UNV Buspirone HCl (Buspar) 15 mg TID PO Last administered on 03/20/19 21:51; Start 03/19/19 at 23:00 Vitamin D (Vitamin D3) 5,000 unit DAILY PO Last administered on 03/20/19 09:07; Start 03/20/19 at 09:00 Duloxetine HCl (Cymbalta) 60 mg BID PO Last administered on 03/20/19 21:53; Start 03/19/19 at 23:00 Pantoprazole Sodium (Protonix) 40 mg DAILYAC PO Last administered on 03/20/19 09:07; Start 03/20/19 at 07:30; Stop 03/20/19 at 09:57; Status DC Lactobacillus Rhamnosus (Culturelle) 1 cap DAILY PO Last administered on 03/20/19 09:07; Start 03/20/19 at 09:00; Stop 03/20/19 at 09:56; Status DC Magnesium Oxide (Magnesium Oxide) 400 mg DAILY PO Last administered on 03/20/19 09:07; Start 03/20/19 at 09:00 Non-Formulary Medication (Melatonin ) 10 mg QHS PO ; Start 03/20/19 at 21:00; Status UNV Calcium Polycarbophil (Fibercon) 625 mg BID PO Last administered on 03/20/19 21:52; Start 03/20/19 at 09:00 Mirtazapine (Remeron) 45 mg HS PO Last administered on 03/20/19 21:54; Start 03/19/19 at 23:00 Oxycodone HCl (Roxicodone) 10 mg TID PO Last administered on 03/20/19 21:51; Start 03/19/19 at 23:00 Vitamin E (Vitamin E.) 400 unit DAILY PO Last administered on 03/20/19 09:06; Start 03/20/19 at 09:00 Budesonide (Pulmicort) 0.5 mg RTBID NEB Last administered on 03/21/19 07:34; Start 03/20/19 at 08:00 Albuterol Sulfate (Ventolin Neb Soln) 2.5 mg RTQID NEB Last administered on 03/21/19 07:34; Start 03/20/19 at 08:00 Lactobacillus Rhamnosus (Culturelle) 1 cap BID PO Last administered on 03/20/19 21:54; Start 03/20/19 at 21:00 Famotidine (Pepcid) 20 mg DAILY PO ; Start 03/21/19 at 09:00 Magnesium Hydroxide (Milk Of Magnesia) 2,400 mg 1X ONCE PO Last administered on 03/20/19 13:20; Start 03/20/19 at 13:30; Stop 03/20/19 at 13:31; Status DC Diclofenac Sodium (Voltaren) 1 minnie BID TP Last administered on 03/20/19 21:50; Start 03/20/19 at 13:30 Active Scripts Active Flector (Diclofenac Epolamine) 1 Each Patch.td12 1 Patch TP BID PRN 30 Days Symbicort 80-4.5 Mcg Inhaler (Budesonide/Formoterol Fumarate) 10.2 Gm Hfa.aer.ad 2 Puff IH BID 30 Days Reported Magnesium Oxide 400 Mg Tablet 400 Mg PO DAILY Atorvastatin Calcium 20 Mg Tablet 20 Mg PO HS Miralax (Polyethylene Glycol 3350) 17 Gm Powd.pack 1 Pkt PO DAILY Oxycodone Hcl Immed.release (Oxycodone Hcl) 10 Mg Tablet 10 Mg PO TID Clonidine Hcl 0.1 Mg Tablet 0.1 Mg PO PRN Q1HR PRN For SBP> 160 May repeat 1 hour after 1st dose if SBP is still >160 Mirtazapine 45 Mg Tablet 45 Mg PO HS Glipizide 5 Mg Tablet 5 Mg PO DAILY Hydralazine Hcl 25 Mg Tablet 1 Tab PO BIDWMEALS Lisinopril 20 Mg Tablet 1 Tab PO DAILY Robaxin-750 (Methocarbamol) 750 Mg Tablet 1 Tab PO TID Meloxicam 7.5 Mg Tablet 1 Tab PO DAILY Probiotic (Lactobacillus Acidophilus) 1 Each Capsule 1 Each PO DAILY Ambien (Zolpidem Tartrate) 5 Mg Tablet 5 Mg PO HS Ferrous Sulfate 325 Mg Tablet 1 Tab PO DAILY Lorazepam 0.5 Mg Tablet 0.5 Mg PO TIDWMEALS Clopidogrel (Clopidogrel Bisulfate) 75 Mg Tablet 75 Mg PO HS Vitamin E (Vitamin E Mixed) 400 Unit Capsule 400 Unit PO DAILY Fiber (Methylcellulose) 500 Mg Tablet 500 Mg PO BID Mysoline (Primidone) 50 Mg Tablet 100 Mg PO HS Vitamin D3 (Cholecalciferol (Vitamin D3)) 5,000 Unit Tablet 1 Tab PO DAILY Melatonin 3 Mg Tablet 10 Mg PO QHS Buspirone Hcl 15 Mg Tablet 1 Tab PO TID Gabapentin (Gabapentin) 300 Mg Capsule 300 Mg PO TID Cartia Xt (Diltiazem Hcl) 180 Mg Cap.er.24h 180 Mg PO DAILY Levothyroxine Sodium 150 Mcg Tablet 1 Tab PO DAILY07 Ropinirole Hcl 1 Mg Tablet 1 Mg PO TID Donepezil Hcl 10 Mg Tablet 1 Tab PO HS Duloxetine Hcl 60 Mg Capsule. 60 Mg PO BID Lidoderm (Lidocaine) 700 Mg Adh..patch 1 Patch TP HS Aspir 81 (Aspirin) 81 Mg Tablet. 1 Tab PO DAILY Carbidopa-Levodopa 25-100 Tab (Carbidopa/Levodopa) 1 Each Tablet 3 Tab PO TIDWMEALS Nexium Capsule (Esomeprazole Magnesium) 40 Mg Capsule. 40 Mg PO DAILY Vitals/I & O Vital Sign - Last 24 Hours 03/20/19 03/20/19 03/20/19 03/20/19 09:05 09:07 09:09 09:10 Pulse 67 67 67 Resp 16 B/P (MAP) 170/72 170/72 170/72 O2 Delivery Room Air 03/20/19 03/20/19 03/20/19 03/20/19 10:10 11:00 11:47 13:23 Temp 98.3 98.3 Pulse 61 Resp 16 18 16 B/P (MAP) 155/47 (83) Pulse Ox 96 O2 Delivery Room Air Room Air Room Air Room Air 03/20/19 03/20/19 03/20/19 03/20/19 13:41 14:25 15:00 17:58 Temp 98.4 98.4 Pulse 64 64 67 Resp 17 16 B/P (MAP) 181/65 155/53 (87) 138/51 Pulse Ox 95 O2 Delivery Room Air Room Air 03/20/19 03/20/19 03/20/19 03/20/19 19:38 20:10 20:32 21:51 Temp 97.8 97.8 Pulse 60 Resp 18 16 B/P (MAP) 149/37 (74) Pulse Ox 97 97 97 O2 Delivery Room Air Room Air Room Air Room Air 03/20/19 03/20/19 03/21/19 03/21/19 22:53 23:49 03:38 07:00 Temp 98.3 98.6 98.6 98.3 98.6 98.6 Pulse 63 59 69 Resp 16 18 18 18 B/P (MAP) 134/42 (72) 166/74 (104) 130/67 (88) Pulse Ox 97 95 98 98 O2 Delivery Room Air Room Air Room Air Room Air 03/21/19 07:34 Pulse Ox 98 O2 Delivery Room Air Intake and Output 03/20/19 03/20/19 03/21/19 15:00 23:00 07:00 Intake Total 600 ml 480 ml Balance 600 ml 480 ml PITER BERMUDEZ MD Mar 21, 2019 08:55
[2019-03-21] MEDS: LORazepam 0.5 MG TABLET PO SCH ×3 (09:27→18:02)
[2019-03-21] MEDS: LISINOPRIL 20 MG TABLET PO SCH (09:28)
[2019-03-21] MEDS: oxyCODONE IR 5 MG TABLET PO SCH ×3 (09:28→22:23)
[2019-03-21] MEDS: DULoxetine HCL 30 MG CAPSULE.DR PO SCH ×2 (09:28→22:21)
[2019-03-21] MEDS: METHOCARBAMOL 750 MG TABLET PO SCH ×3 (09:28→22:26)
[2019-03-21] MEDS: VITAMIN E 200 UNIT CAPSULE. PO SCH (09:28)
[2019-03-21] MEDS: ASPIRIN ENTERIC COATED 81 MG TABLET.DR. PO SCH (09:28)
[2019-03-21] MEDS: CARBIDOPA/LEVODOPA 25/100MG TABLET PO SCH ×3 (09:29→18:02)
[2019-03-21] MEDS: rOPINIRole 1 MG TABLET. PO SCH ×3 (09:29→22:22)
[2019-03-21] MEDS: glipiZIDE 5 MG TABLET PO SCH (09:29)
[2019-03-21] MEDS: MAGNESIUM OXIDE 400 MG TABLET PO SCH (09:29)
[2019-03-21] MEDS: CHOLECALCIFEROL (VITAMIN D3) 5,000 UNIT CAPSULE PO SCH (09:36)
[2019-03-21] MEDS: CALCIUM POLYCARBOPHIL 625 MG TABLET PO SCH ×2 (09:36→22:23)
[2019-03-21] MEDS: FERROUS SULFATE 325 MG TABLET. PO SCH (09:37)
[2019-03-21] MEDS: hydrALAZINE 25 MG TABLET PO SCH ×2 (09:37→18:03)
[2019-03-21] MEDS: GABAPENTIN 300 MG CAPSULE. PO SCH ×3 (09:37→22:24)
[2019-03-21] MEDS: FAMOTIDINE 20 MG TABLET. PO SCH (09:37)
[2019-03-21] MEDS: LACTOBACILLUS RHAMNOSUS GG 1 CAPSULE. PO SCH ×2 (09:37→21:00)
[2019-03-21] MEDS: busPIRone 5 MG TABLET. PO SCH ×3 (09:38→22:22)
[2019-03-21] MEDS: POLYETHYLENE GLYCOL 3350 17 GM PACKET. PO SCH (09:38)
[2019-03-21] MEDS: MELOXICAM 7.5 MG TABLET PO SCH (09:38)
[2019-03-21] MEDS: DICLOFENAC SODIUM 1% TOPICAL GEL 100GM TUBE. TP SCH ×2 (09:39→22:26)
--- NOTE | 2019-03-21 09:55 | PDOC ---
CARDIO Progress Notes Date and Time Date of Service 03/21/2019 Time of Evaluation 0940 Subjective Subjective: No Chest Pain, No shortness of breath, No Palpitations Vitals Vitals Vital Signs Date Time Temp Pulse Resp B/P (MAP) Pulse Ox O2 Delivery O2 Flow Rate FiO2 03/21/19 09:37 69 130/67 03/21/19 09:28 17 Room Air 03/21/19 07:34 98 03/21/19 07:00 98.6 98.6 Weight Weight [ ] Input and Output Intake and Output Intake and Output 03/21/19 07:00 Intake Total 1080 ml Balance 1080 ml Intake Oral 1080 ml # Voids 6 Laboratory Labs Laboratory Tests Test 03/20/19 11:15 03/20/19 16:45 03/20/19 16:47 03/20/19 20:22 Glucose (Fingerstick) 98 mg/dL (70-99) 79 mg/dL (70-99) 114 mg/dL (70-99) White Blood Count 4.6 x10^3/uL (4.0-11.0) Red Blood Count 3.82 x10^6/uL (3.50-5.40) Hemoglobin 11.8 g/dL (12.0-15.5) Hematocrit 35.3 % (36.0-47.0) Mean Corpuscular Volume 93 fL (79-100) Mean Corpuscular Hemoglobin 31 pg (25-35) Mean Corpuscular Hemoglobin Concent 33 g/dL (31-37) Red Cell Distribution Width 13.2 % (11.5-14.5) Platelet Count 327 x10^3/uL (140-400) Neutrophils (%) (Auto) 51 % (31-73) Lymphocytes (%) (Auto) 34 % (24-48) Monocytes (%) (Auto) 12 % (0-9) Eosinophils (%) (Auto) 3 % (0-3) Basophils (%) (Auto) 1 % (0-3) Neutrophils # (Auto) 2.3 x10^3/uL (1.8-7.7) Lymphocytes # (Auto) 1.5 x10^3/uL (1.0-4.8) Monocytes # (Auto) 0.6 x10^3/uL (0.0-1.1) Eosinophils # (Auto) 0.1 x10^3/uL (0.0-0.7) Basophils # (Auto) 0.0 x10^3/uL (0.0-0.2) Sodium Level 139 mmol/L (136-145) Potassium Level 4.2 mmol/L (3.5-5.1) Chloride Level 100 mmol/L (98-107) Carbon Dioxide Level 34 mmol/L (21-32) Anion Gap 5 (6-14) Blood Urea Nitrogen 26 mg/dL (7-20) Creatinine 0.9 mg/dL (0.6-1.0) Estimated GFR (Cockcroft-Gault) 61.4 Glucose Level 88 mg/dL (70-99) Calcium Level 8.5 mg/dL (8.5-10.1) Test 03/21/19 04:00 03/21/19 07:50 Sodium Level 138 mmol/L (136-145) Potassium Level 4.6 mmol/L (3.5-5.1) Chloride Level 101 mmol/L (98-107) Carbon Dioxide Level 27 mmol/L (21-32) Anion Gap 10 (6-14) Blood Urea Nitrogen 23 mg/dL (7-20) Creatinine 1.0 mg/dL (0.6-1.0) Estimated GFR (Cockcroft-Gault) 54.3 BUN/Creatinine Ratio 23 (6-20) Glucose Level 90 mg/dL (70-99) Calcium Level 8.6 mg/dL (8.5-10.1) Total Bilirubin 0.3 mg/dL (0.2-1.0) Aspartate Amino Transf (AST/SGOT) 28 U/L (15-37) Alanine Aminotransferase (ALT/SGPT) 18 U/L (14-59) Alkaline Phosphatase 99 U/L (46-116) Total Protein 6.4 g/dL (6.4-8.2) Albumin 3.1 g/dL (3.4-5.0) Albumin/Globulin Ratio 0.9 (1.0-1.7) Glucose (Fingerstick) 109 mg/dL (70-99) Physical Exam HEENT: Neck Supple W Full Motion Chest: Symmetric LUNGS: Other (diminished bases) Heart: RRR Abdomen: Soft N/T Extremities: No Calf Tenderness, Other (trace LE edema) Neurology: alert, oriented, follow commands Assessment Assessment 1. Hypertension; controlled 2. Possible CVA with dysarthria, weakness. Neuro following 3. Metabolic Encephalopathy: better 4. HX of CVA and seizures 5. Right carotid artery stenosis: moderate per doppler 6. Hx of CV/and parkinsons/dementia 7. CAD; past stent to PLB, clinically stable 8. Hyperlipidemia 9. PAFIB; currently SR 10. PPM in situ: ([facility]) 11. factor V leiden deficiency Recommendations 1. May increase lisinopril if BP consistently trends up- Orthostatic readings pending 2. ASA for stroke prevention, poor candidate for snf anticoagulation due to high fall risk but if suspicion for CVA is high then may need to reconsider anticoagulation given her hx of AFIB and thrombophilia. Defer to neurology 3. Continue statin, Plavix, ASA 4. Continue cardizem 5. Supportive care NITA CANNON [employer] REPAIR PERSON Mar 21, 2019 09:55
--- NOTE | 2019-03-21 13:40 | EEG ---
DATE OF SERVICE: 03/21/2019 EEG NUMBER: [id number] OBJECTIVE: This is a 74-year-old female patient with symptoms of cognitive impairment and speech problem. EEG was requested to evaluate cerebral activity. METHODS: Twenty electrodes were applied according to the international 10-20 electrode placement system. EKG monitoring, hyperventilation, intermittent photic stimulation, monopolar and bipolar montages are routinely utilized. The record was obtained on a digital system with video monitoring. FINDINGS: 1. Background: The patient was recorded in the awake and drowsy states. No actual sleep state was recorded. The overall background amplitude is 10-25 microvolts. A posterior dominant rhythm of 7-8 Hz is observed. 2. Abnormalities: No specific epileptiform discharge or electrographic seizure is seen. No focal or diffuse slowing. Waves at the posterior dominant rhythm of 7-8 Hz is observed. 3. Activation: Hyperventilation was performed with good efforts and normal response. Intermittent photic stimulation was performed with photic driving. IMPRESSION: This EEG is a mildly abnormal study for the awake and drowsy states. No actual sleep state was recorded. The posterior dominant rhythm of 7-8 Hz is mildly slow for age. No focal, lateralizing, specific epileptiform discharge, or electrographic seizure is seen. KELSEY GUTIERRES MD DR: ROBERTO/baldomero JOB#: [id number] / [id number] JEAN
--- NOTE | 2019-03-21 16:20 | PDOC ---
PROGRESS NOTES Assessment Assessment Slurred speech, chronic intermittent. Right LE weakness. Metabolic encephalopathy. Dysarthria, chronic. Confusional episodes. Seizure, Hx. Anisocoria, chronic, left pupil 2-3 mm > right 1-2 mm. PD. AFib. CAD, s/p stent placement. HTN. HLD. Cognitive impairment. Pacemaker. RECOMMENDATIONS/PLAN: Continue Plavix 75 mg daily. Continue ASA 81 mg daily. Continue Sinemet at current dosing. OT/PT. FU with PCP. Discussed in all detail with her daughter at bedside on 03/20/19. Lipid panel: WNL. HCT x2: No acute findings. EEG on 03/20/19: The posterior dominant rhythm is mildly slow for age. History of Present Illness The patient is a 74-year-old right-handed female with reportedly history of old stroke with chronic left side weakness. The patient stated that she woke up in the morning on 03/19/19 and felt weak, dizzy and lightheaded. She then went to her neurologist office around 2:30 PM and said she started to have slurred speech around that time and started to drag her right foot and leaning against the wall. Per her daughter, they were told to call her PCP. She was brought to the ER of [facility] in the evening on 03/19/19. Past Medical History Cardiovascular: AFIB, CAD, HTN, Other (mitral regurgitation) Pulmonary: COPD, Pneumonia, Other (sleep apnea) CENTRAL NERVOUS SYSTEM: CVA, Seizure, TIA, Other (Parkinson's) GI: Constipation, GERD, Irritable bowel disease, Peptic Ulcer disease, Other (gastroparesis, diarrhea) Heme/Onc: Other (factor V Leiden deficiency) Psych: Anxiety, Depression Musculoskeletal: low back pain ENT: Other (glaucoma) Renal/: Urinary Incontinence Endocrine: Diabetes, Hypothyroidism Past Surgical History Pacemaker, Cataract Removal, Hernia Repair (umbilical), Tonsillectomy (/adenoids), Hysterectomy, Colon Resection, Other (cardiac catheterization, coronary stent, spinal) Family History Cancer Social History , no alcohol or tobacco Allergies Coded Allergies: Sulfa (Sulfonamide Antibiotics) (Verified Allergy, Intermediate, hives, 11/01/17) dexamethasone (Verified Allergy, Intermediate, 11/01/17) ROS Negative for fever, chills, weight loss, shortness of breath, chest pain, indigestion, hematochezia, melena, and dysuria. Full 14-point review of systems is negative. MEDICATIONS: Refer to [facility] PHYSICAL EXAMINATION: General appearance is in subacute distress. HEENT: Normocephalic and nontraumatic. Eyes, nose, ears, and throat are unrema rkable. Neck is supple. No lymphadenopathy. No bruits are heard over the carotid artery. No crepitus. Cardiovascular: S1, S2, regular rate and rhythm. Pulmonary: Clear to auscultation bilaterally. Abdomen: Bowel sounds are positive. Abdomen is soft, nontender, and nondistended. Extremities: No rash, lesions, or edema. No restriction of range of motion NEUROLOGICAL EXAMINATION: Awake. Oriented to time, place and person. Left pupil 2-3 mm, right side 1.5 mm EOMI. CN: no focal findings. Muscle tone: within normal. Muscle strength: 4+ DTR: 2 Plantar reflex: Neutral response bilaterally Gait: not examined while in bed. Sensory exam: no abnormal findings. No cerebellar signs elicited. F-T-N test fine. Objective Objective Vital Signs Date Time Temp Pulse Resp B/P (MAP) Pulse Ox O2 Delivery O2 Flow Rate FiO2 03/21/19 15:38 97 Room Air 03/21/19 15:05 60 139/53 (81) 03/21/19 15:00 99.0 18 99.0 Intake and Output 03/21/19 07:00 Intake Total 1080 ml Balance 1080 ml Intake Oral 1080 ml # Voids 6 Vitals Signs Vitals VS - Last 72 Hours, by Label Date Time Temp Pulse Resp B/P (MAP) Pulse Ox O2 Delivery O2 Flow Rate FiO2 03/21/19 15:38 97 Room Air 03/21/19 15:05 60 139/53 (81) 03/21/19 15:03 60 153/49 (83) 03/21/19 15:00 99.0 60 18 143/41 (75) 97 Room Air 99.0 03/21/19 14:20 16 Room Air 03/21/19 13:10 16 Room Air 03/21/19 11:00 98.2 67 18 167/59 (95) 97 Room Air 98.2 03/21/19 10:32 17 Room Air 03/21/19 09:37 69 130/67 03/21/19 09:37 69 130/67 03/21/19 09:28 17 Room Air 03/21/19 09:28 69 130/67 03/21/19 08:00 Room Air 03/21/19 07:34 98 Room Air 03/21/19 07:00 98.6 69 18 130/67 (88) 98 Room Air 98.6 03/21/19 03:38 98.6 59 18 166/74 (104) 98 Room Air 98.6 03/20/19 23:49 98.3 63 18 134/42 (72) 95 Room Air 98.3 03/20/19 22:53 16 97 Room Air 03/20/19 21:51 16 97 Room Air 03/20/19 20:32 97 Room Air 03/20/19 20:10 Room Air 03/20/19 19:38 97.8 60 18 149/37 (74) 97 Room Air 97.8 03/20/19 17:58 67 138/51 03/20/19 15:00 98.4 64 16 155/53 (87) 95 Room Air 98.4 03/20/19 14:25 17 Room Air 03/20/19 13:41 64 181/65 03/20/19 13:23 16 Room Air 03/20/19 11:47 Room Air 03/20/19 11:00 98.3 61 18 155/47 (83) 96 Room Air 98.3 03/20/19 10:10 16 Room Air 03/20/19 09:10 67 170/72 03/20/19 09:09 67 170/72 03/20/19 09:07 67 170/72 03/20/19 09:05 16 Room Air 03/20/19 08:30 Room Air 03/20/19 08:00 100 Room Air 03/20/19 07:00 98.0 67 16 170/72 (104) 100 Room Air 98.0 Laboratory Laboratory Laboratory Tests Test 03/20/19 16:45 03/20/19 16:47 03/20/19 20:22 03/21/19 04:00 White Blood Count 4.6 x10^3/uL (4.0-11.0) Red Blood Count 3.82 x10^6/uL (3.50-5.40) Hemoglobin 11.8 g/dL (12.0-15.5) Hematocrit 35.3 % (36.0-47.0) Mean Corpuscular Volume 93 fL (79-100) Mean Corpuscular Hemoglobin 31 pg (25-35) Mean Corpuscular Hemoglobin Concent 33 g/dL (31-37) Red Cell Distribution Width 13.2 % (11.5-14.5) Platelet Count 327 x10^3/uL (140-400) Neutrophils (%) (Auto) 51 % (31-73) Lymphocytes (%) (Auto) 34 % (24-48) Monocytes (%) (Auto) 12 % (0-9) Eosinophils (%) (Auto) 3 % (0-3) Basophils (%) (Auto) 1 % (0-3) Neutrophils # (Auto) 2.3 x10^3/uL (1.8-7.7) Lymphocytes # (Auto) 1.5 x10^3/uL (1.0-4.8) Monocytes # (Auto) 0.6 x10^3/uL (0.0-1.1) Eosinophils # (Auto) 0.1 x10^3/uL (0.0-0.7) Basophils # (Auto) 0.0 x10^3/uL (0.0-0.2) Sodium Level 139 mmol/L (136-145) 138 mmol/L (136-145) Potassium Level 4.2 mmol/L (3.5-5.1) 4.6 mmol/L (3.5-5.1) Chloride Level 100 mmol/L (98-107) 101 mmol/L (98-107) Carbon Dioxide Level 34 mmol/L (21-32) 27 mmol/L (21-32) Anion Gap 5 (6-14) 10 (6-14) Blood Urea Nitrogen 26 mg/dL (7-20) 23 mg/dL (7-20) Creatinine 0.9 mg/dL (0.6-1.0) 1.0 mg/dL (0.6-1.0) Estimated GFR (Cockcroft-Gault) 61.4 54.3 Glucose Level 88 mg/dL (70-99) 90 mg/dL (70-99) Calcium Level 8.5 mg/dL (8.5-10.1) 8.6 mg/dL (8.5-10.1) Glucose (Fingerstick) 79 mg/dL (70-99) 114 mg/dL (70-99) BUN/Creatinine Ratio 23 (6-20) Total Bilirubin 0.3 mg/dL (0.2-1.0) Aspartate Amino Transf (AST/SGOT) 28 U/L (15-37) Alanine Aminotransferase (ALT/SGPT) 18 U/L (14-59) Alkaline Phosphatase 99 U/L (46-116) Total Protein 6.4 g/dL (6.4-8.2) Albumin 3.1 g/dL (3.4-5.0) Albumin/Globulin Ratio 0.9 (1.0-1.7) Test 03/21/19 07:50 03/21/19 11:55 Glucose (Fingerstick) 109 mg/dL (70-99) 98 mg/dL (70-99) Medication Medications Current Medications Famotidine (Pepcid) 20 mg DAILY PO Last administered on 03/21/19at 09:37; Start 03/21/19 at 09:00 Lactobacillus Rhamnosus (Culturelle) 1 cap BID PO Last administered on 03/21/19at 09:37; Start 03/20/19 at 21:00 Levofloxacin (Levaquin) 750 mg 1X ONCE PO Last administered on 03/21/19at 13:56; Start 03/21/19 at 14:00; Stop 03/21/19 at 14:01; Status DC Non-Formulary Medication (Melatonin ) 10 mg QHS PO ; Start 03/20/19 at 21:00; Status UNV Comment Review of Relevant I have reviewed the following items dina (where applicable) has been applied. KELSEY GUTIERRES MD Mar 21, 2019 16:20
[2019-03-21] MEDS: DEXTROSE 50% 25 GM / 50ML DISP.SYRIN. IV PRN (17:09)
[2019-03-21] MEDS: MIRTAZAPINE 15 MG TABLET PO SCH (22:22)
[2019-03-21] MEDS: ATORVASTATIN CALCIUM 20 MG TABLET PO SCH (22:23)
[2019-03-21] MEDS: CLOPIDOGREL BISULFATE 75 MG TABLET PO SCH (22:23)
[2019-03-21] MEDS: PRIMIDONE 50 MG TABLET PO SCH (22:23)
[2019-03-21] MEDS: ZOLPIDEM 5 MG TABLET. PO SCH (22:23)
[2019-03-21] MEDS: DONEPEZIL HCL 10 MG TABLET. PO SCH (22:24)
[2019-03-21] MEDS: LIDOCAINE (700MG/PATCH) PATCH. TP SCH (22:26)
[2019-03-22 03:32] VITALS: BP 142/52
[2019-03-22 05:29] LABS: BASO % 1 % (0-3); EOS # 0.2 x10^3/uL (0.0-0.7); EOS % 3 % (0-3); HEMATOCRIT 33.5 % (36.0-47.0); HEMOGLOBIN 11.2 g/dL (12.0-15.5); LYMPH # 1.8 x10^3/uL (1.0-4.8); LYMPH % 34 % (24-48); MEAN CORPUSCULAR HEMOGLOBIN 31 pg (25-35); MEAN CORPUSCULAR HGB CONC 33 g/dL (31-37); MEAN CORPUSCULAR VOLUME 92 fL (79-100); MONO # 0.6 x10^3/uL (0.0-1.1); MONO % 11 % (0-9); NEUT # 2.8 x10^3/uL (1.8-7.7); NEUT % 52 % (31-73); PLATELET COUNT 351 x10^3/uL (140-400); RED BLOOD COUNT 3.66 x10^6/uL (3.50-5.40); RED CELL DISTRIBUTION WIDTH 13.4 % (11.5-14.5); WHITE BLOOD COUNT 5.4 x10^3/uL (4.0-11.0)
[2019-03-22 06:05] LABS: ALBUMIN 2.9 g/dL (3.4-5.0); ALBUMIN/GLOBULIN RATIO 0.8 (1.0-1.7); CALCIUM 8.9 mg/dL (8.5-10.1); GFR 54.3; POTASSIUM 4.6 mmol/L (3.5-5.1); TOTAL BILIRUBIN 0.3 mg/dL (0.2-1.0); TOTAL PROTEIN 6.4 g/dL (6.4-8.2)
[2019-03-22 07:00] VITALS: BP 219/71
[2019-03-22] MEDS: BUDESONIDE 0.5 MG/2 ML NEBU. NEB SCH ×2 (07:49→19:42)
[2019-03-22] MEDS: ALBUTEROL SULFATE 2.5 MG/3 ML NEBU. NEB SCH ×4 (07:49→19:42)
[2019-03-22] MEDS: CALCIUM POLYCARBOPHIL 625 MG TABLET PO SCH ×2 (08:07→20:53)
[2019-03-22] MEDS: hydrALAZINE 25 MG TABLET PO SCH ×2 (08:07→16:50)
[2019-03-22] MEDS: LISINOPRIL 20 MG TABLET PO SCH (08:08)
[2019-03-22] MEDS: MAGNESIUM OXIDE 400 MG TABLET PO SCH (08:10)
[2019-03-22] MEDS: FERROUS SULFATE 325 MG TABLET. PO SCH (08:10)
[2019-03-22] MEDS: VITAMIN E 200 UNIT CAPSULE. PO SCH (08:10)
[2019-03-22] MEDS: FAMOTIDINE 20 MG TABLET. PO SCH (08:10)
[2019-03-22] MEDS: LACTOBACILLUS RHAMNOSUS GG 1 CAPSULE. PO SCH ×2 (08:10→20:55)
[2019-03-22] MEDS: LORazepam 0.5 MG TABLET PO SCH ×3 (08:10→16:49)
[2019-03-22] MEDS: glipiZIDE 5 MG TABLET PO SCH (08:10)
[2019-03-22] MEDS: GABAPENTIN 300 MG CAPSULE. PO SCH ×3 (08:10→21:06)
[2019-03-22] MEDS: busPIRone 5 MG TABLET. PO SCH ×3 (08:10→20:53)
[2019-03-22] MEDS: oxyCODONE IR 5 MG TABLET PO SCH ×3 (08:11→20:54)
[2019-03-22] MEDS: LEVOTHYROXINE 150 MCG TABLET PO SCH (08:11)
[2019-03-22] MEDS: MELOXICAM 7.5 MG TABLET PO SCH (08:11)
[2019-03-22] MEDS: ASPIRIN ENTERIC COATED 81 MG TABLET.DR. PO SCH (08:11)
[2019-03-22] MEDS: DULoxetine HCL 30 MG CAPSULE.DR PO SCH ×2 (08:12→21:06)
[2019-03-22] MEDS: METHOCARBAMOL 750 MG TABLET PO SCH ×3 (08:12→21:06)
[2019-03-22] MEDS: DICLOFENAC SODIUM 1% TOPICAL GEL 100GM TUBE. TP SCH ×2 (08:12→20:52)
[2019-03-22] MEDS: rOPINIRole 1 MG TABLET. PO SCH ×3 (08:12→21:06)
[2019-03-22] MEDS: CHOLECALCIFEROL (VITAMIN D3) 5,000 UNIT CAPSULE PO SCH (08:12)
[2019-03-22] MEDS: POLYETHYLENE GLYCOL 3350 17 GM PACKET. PO SCH (08:12)
[2019-03-22] MEDS: CARBIDOPA/LEVODOPA 25/100MG TABLET PO SCH ×3 (08:22→16:50)
--- NOTE | 2019-03-22 09:38 | PDOC ---
PROGRESS NOTES History of Present Illness History of Present Illness ASSESSMENT AND PLAN: IMPRESSION: No acute intracranial findings. on ct head Probable transient ischemic attack. MORBID OBESITY mild hyponatremia, volume excess suspected hypertension COGNITIVE Deficit, long standing HYPOGLYCEMIC EPISODE 03/22 admitted. consult Neurology. 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 PT, OT speech therapy. DVT prophylaxis. Full Code. home meds increase her aspirin. fluid restriction bmp today urinary na, random PT/OT Decrease glipizide to 2.5 mg po daily 28 min pt exam, chart review, > 50% of time spent with exam, chart review, pt care coordination Vitals Vitals Vital Signs Date Time Temp Pulse Resp B/P (MAP) Pulse Ox O2 Delivery O2 Flow Rate FiO2 03/22/19 08:11 Room Air 03/22/19 08:09 72 219/71 03/22/19 07:50 97 03/22/19 07:00 99.0 18 99.0 Physical Exam Physical Exam PHYSICAL EXAMINATION: VITALS: Within normal limits and are stable. GENERAL: No apparent distress. Alert and oriented. HEENT: Head is normocephalic, atraumatic, pupils were equally round and reactive to light and accommodation. NECK: Supple, no JVD, no thyromegaly was noted. LUNGS: Clear to auscultation in all lung martinez without rhonchi or wheezing. HEART: RRR, S1, S2 present. Peripheral pulses intact, no obvious murmurs were noted. ABDOMEN: Soft, nontender. Positive bowel sounds no organomegaly, normal bowel sounds. EXTREMITIES: Without any cyanosis, clubbing, or edema. Pedal pulses intact, Homans sign is negative. NEUROLOGIC: confused, anxious calm PSYCHIATRIC: Normal affect, normal mood. Stable. SKIN: No ulcerations or rashes, good skin turgor, no jaundice. VASCULAR: Good capillary refill, neurovascular bundle appears to be intact. General: Alert, Oriented X3, Cooperative, No acute distress Heart: Regular rate, Normal S1 Lungs: Clear Abdomen: Normal bowel sounds, Soft, No tenderness Extremities: No cyanosis, No edema Labs LABS Laboratory Tests Test 03/21/19 11:55 03/21/19 16:35 03/21/19 16:58 03/21/19 17:48 Glucose (Fingerstick) 98 mg/dL (70-99) 62 mg/dL (70-99) 58 mg/dL (70-99) 147 mg/dL (70-99) Test 03/21/19 20:30 03/22/19 04:30 03/22/19 07:45 Glucose (Fingerstick) 121 mg/dL (70-99) 66 mg/dL (70-99) White Blood Count 5.4 x10^3/uL (4.0-11.0) Red Blood Count 3.66 x10^6/uL (3.50-5.40) Hemoglobin 11.2 g/dL (12.0-15.5) Hematocrit 33.5 % (36.0-47.0) Mean Corpuscular Volume 92 fL (79-100) Mean Corpuscular Hemoglobin 31 pg (25-35) Mean Corpuscular Hemoglobin Concent 33 g/dL (31-37) Red Cell Distribution Width 13.4 % (11.5-14.5) Platelet Count 351 x10^3/uL (140-400) Neutrophils (%) (Auto) 52 % (31-73) Lymphocytes (%) (Auto) 34 % (24-48) Monocytes (%) (Auto) 11 % (0-9) Eosinophils (%) (Auto) 3 % (0-3) Basophils (%) (Auto) 1 % (0-3) Neutrophils # (Auto) 2.8 x10^3/uL (1.8-7.7) Lymphocytes # (Auto) 1.8 x10^3/uL (1.0-4.8) Monocytes # (Auto) 0.6 x10^3/uL (0.0-1.1) Eosinophils # (Auto) 0.2 x10^3/uL (0.0-0.7) Basophils # (Auto) 0.0 x10^3/uL (0.0-0.2) Sodium Level 138 mmol/L (136-145) Potassium Level 4.6 mmol/L (3.5-5.1) Chloride Level 101 mmol/L (98-107) Carbon Dioxide Level 28 mmol/L (21-32) Anion Gap 9 (6-14) Blood Urea Nitrogen 21 mg/dL (7-20) Creatinine 1.0 mg/dL (0.6-1.0) Estimated GFR (Cockcroft-Gault) 54.3 BUN/Creatinine Ratio 21 (6-20) Glucose Level 93 mg/dL (70-99) Calcium Level 8.9 mg/dL (8.5-10.1) Total Bilirubin 0.3 mg/dL (0.2-1.0) Aspartate Amino Transf (AST/SGOT) 30 U/L (15-37) Alanine Aminotransferase (ALT/SGPT) 15 U/L (14-59) Alkaline Phosphatase 100 U/L (46-116) Total Protein 6.4 g/dL (6.4-8.2) Albumin 2.9 g/dL (3.4-5.0) Albumin/Globulin Ratio 0.8 (1.0-1.7) Assessment and Plan Assessmemt and Plan Problems Medical Problems: (1) Acute focal neurological deficit, onset within 3-24 hours Status: Acute (2) TIA (transient ischemic attack) Status: Acute Factors Facilitating Goal Achievement * Available resources Problem List (body system elements) * Impaired fnctnl mobility * Balance * Age * Coordination * Knowledge-safe techniques Clinical Presentation * Evolving Evaluation Complexity Level * Moderate Complexity Pt/caregiver agrees with plan of care/goals * Yes Patient condition at conclusion of therapy * Pt in chair * Call light in reach * Phone in reach * PtIn no apparent distress * Pt denies further needs * RN/NAPRAPATH with patient Communicated Patient Care With (Name, Title) * DARRION Jane; DEBBIE Mora Goal 1 - Bed Mobility Assistance Required * Independent Goal 2 - Transfers Assistance Required * Independent Goal 2 - Transfer Type * Sit to Stand Goal 3 - Ambulation Assistance Required * Independent Goal 3 - Ambulation Distance * 250' Goal 3 - Ambulation Device * Roller Walker Treatment Plan * Therapeutic Exercise * Bed Mobility Training * Transfer training * Gait Training Frequency of Treatment Expected * 7 visits/week Duration of Treatment Expected * 2 weeks Discharge Recommendations * Home with Home Health Discharge Recommendation - DME * Rolling Walker needed * and ambulation safely Discharge Recommendation Comments Comment Review of Relevant I have reviewed the following items dina (where applicable) has been applied. Labs Laboratory Tests Test 03/20/19 11:15 03/20/19 16:45 03/20/19 16:47 03/20/19 20:22 Glucose (Fingerstick) 98 mg/dL (70-99) 79 mg/dL (70-99) 114 mg/dL (70-99) White Blood Count 4.6 x10^3/uL (4.0-11.0) Red Blood Count 3.82 x10^6/uL (3.50-5.40) Hemoglobin 11.8 g/dL (12.0-15.5) Hematocrit 35.3 % (36.0-47.0) Mean Corpuscular Volume 93 fL (79-100) Mean Corpuscular Hemoglobin 31 pg (25-35) Mean Corpuscular Hemoglobin Concent 33 g/dL (31-37) Red Cell Distribution Width 13.2 % (11.5-14.5) Platelet Count 327 x10^3/uL (140-400) Neutrophils (%) (Auto) 51 % (31-73) Lymphocytes (%) (Auto) 34 % (24-48) Monocytes (%) (Auto) 12 % (0-9) Eosinophils (%) (Auto) 3 % (0-3) Basophils (%) (Auto) 1 % (0-3) Neutrophils # (Auto) 2.3 x10^3/uL (1.8-7.7) Lymphocytes # (Auto) 1.5 x10^3/uL (1.0-4.8) Monocytes # (Auto) 0.6 x10^3/uL (0.0-1.1) Eosinophils # (Auto) 0.1 x10^3/uL (0.0-0.7) Basophils # (Auto) 0.0 x10^3/uL (0.0-0.2) Sodium Level 139 mmol/L (136-145) Potassium Level 4.2 mmol/L (3.5-5.1) Chloride Level 100 mmol/L (98-107) Carbon Dioxide Level 34 mmol/L (21-32) Anion Gap 5 (6-14) Blood Urea Nitrogen 26 mg/dL (7-20) Creatinine 0.9 mg/dL (0.6-1.0) Estimated GFR (Cockcroft-Gault) 61.4 Glucose Level 88 mg/dL (70-99) Calcium Level 8.5 mg/dL (8.5-10.1) Test 03/21/19 04:00 03/21/19 07:50 03/21/19 08:05 03/21/19 11:55 Sodium Level 138 mmol/L (136-145) Potassium Level 4.6 mmol/L (3.5-5.1) Chloride Level 101 mmol/L (98-107) Carbon Dioxide Level 27 mmol/L (21-32) Anion Gap 10 (6-14) Blood Urea Nitrogen 23 mg/dL (7-20) Creatinine 1.0 mg/dL (0.6-1.0) Estimated GFR (Cockcroft-Gault) 54.3 BUN/Creatinine Ratio 23 (6-20) Glucose Level 90 mg/dL (70-99) Calcium Level 8.6 mg/dL (8.5-10.1) Total Bilirubin 0.3 mg/dL (0.2-1.0) Aspartate Amino Transf (AST/SGOT) 28 U/L (15-37) Alanine Aminotransferase (ALT/SGPT) 18 U/L (14-59) Alkaline Phosphatase 99 U/L (46-116) Total Protein 6.4 g/dL (6.4-8.2) Albumin 3.1 g/dL (3.4-5.0) Albumin/Globulin Ratio 0.9 (1.0-1.7) Glucose (Fingerstick) 109 mg/dL (70-99) 98 mg/dL (70-99) Urine Random Sodium 88 mmol/L (Not Estab.) Test 03/21/19 16:35 03/21/19 16:58 03/21/19 17:48 03/21/19 20:30 Glucose (Fingerstick) 62 mg/dL (70-99) 58 mg/dL (70-99) 147 mg/dL (70-99) 121 mg/dL (70-99) Test 03/22/19 04:30 03/22/19 07:45 White Blood Count 5.4 x10^3/uL (4.0-11.0) Red Blood Count 3.66 x10^6/uL (3.50-5.40) Hemoglobin 11.2 g/dL (12.0-15.5) Hematocrit 33.5 % (36.0-47.0) Mean Corpuscular Volume 92 fL (79-100) Mean Corpuscular Hemoglobin 31 pg (25-35) Mean Corpuscular Hemoglobin Concent 33 g/dL (31-37) Red Cell Distribution Width 13.4 % (11.5-14.5) Platelet Count 351 x10^3/uL (140-400) Neutrophils (%) (Auto) 52 % (31-73) Lymphocytes (%) (Auto) 34 % (24-48) Monocytes (%) (Auto) 11 % (0-9) Eosinophils (%) (Auto) 3 % (0-3) Basophils (%) (Auto) 1 % (0-3) Neutrophils # (Auto) 2.8 x10^3/uL (1.8-7.7) Lymphocytes # (Auto) 1.8 x10^3/uL (1.0-4.8) Monocytes # (Auto) 0.6 x10^3/uL (0.0-1.1) Eosinophils # (Auto) 0.2 x10^3/uL (0.0-0.7) Basophils # (Auto) 0.0 x10^3/uL (0.0-0.2) Sodium Level 138 mmol/L (136-145) Potassium Level 4.6 mmol/L (3.5-5.1) Chloride Level 101 mmol/L (98-107) Carbon Dioxide Level 28 mmol/L (21-32) Anion Gap 9 (6-14) Blood Urea Nitrogen 21 mg/dL (7-20) Creatinine 1.0 mg/dL (0.6-1.0) Estimated GFR (Cockcroft-Gault) 54.3 BUN/Creatinine Ratio 21 (6-20) Glucose Level 93 mg/dL (70-99) Calcium Level 8.9 mg/dL (8.5-10.1) Total Bilirubin 0.3 mg/dL (0.2-1.0) Aspartate Amino Transf (AST/SGOT) 30 U/L (15-37) Alanine Aminotransferase (ALT/SGPT) 15 U/L (14-59) Alkaline Phosphatase 100 U/L (46-116) Total Protein 6.4 g/dL (6.4-8.2) Albumin 2.9 g/dL (3.4-5.0) Albumin/Globulin Ratio 0.8 (1.0-1.7) Glucose (Fingerstick) 66 mg/dL (70-99) Laboratory Tests Test 03/21/19 11:55 03/21/19 16:35 03/21/19 16:58 03/21/19 17:48 Glucose (Fingerstick) 98 mg/dL (70-99) 62 mg/dL (70-99) 58 mg/dL (70-99) 147 mg/dL (70-99) Test 03/21/19 20:30 03/22/19 04:30 03/22/19 07:45 Glucose (Fingerstick) 121 mg/dL (70-99) 66 mg/dL (70-99) White Blood Count 5.4 x10^3/uL (4.0-11.0) Red Blood Count 3.66 x10^6/uL (3.50-5.40) Hemoglobin 11.2 g/dL (12.0-15.5) Hematocrit 33.5 % (36.0-47.0) Mean Corpuscular Volume 92 fL (79-100) Mean Corpuscular Hemoglobin 31 pg (25-35) Mean Corpuscular Hemoglobin Concent 33 g/dL (31-37) Red Cell Distribution Width 13.4 % (11.5-14.5) Platelet Count 351 x10^3/uL (140-400) Neutrophils (%) (Auto) 52 % (31-73) Lymphocytes (%) (Auto) 34 % (24-48) Monocytes (%) (Auto) 11 % (0-9) Eosinophils (%) (Auto) 3 % (0-3) Basophils (%) (Auto) 1 % (0-3) Neutrophils # (Auto) 2.8 x10^3/uL (1.8-7.7) Lymphocytes # (Auto) 1.8 x10^3/uL (1.0-4.8) Monocytes # (Auto) 0.6 x10^3/uL (0.0-1.1) Eosinophils # (Auto) 0.2 x10^3/uL (0.0-0.7) Basophils # (Auto) 0.0 x10^3/uL (0.0-0.2) Sodium Level 138 mmol/L (136-145) Potassium Level 4.6 mmol/L (3.5-5.1) Chloride Level 101 mmol/L (98-107) Carbon Dioxide Level 28 mmol/L (21-32) Anion Gap 9 (6-14) Blood Urea Nitrogen 21 mg/dL (7-20) Creatinine 1.0 mg/dL (0.6-1.0) Estimated GFR (Cockcroft-Gault) 54.3 BUN/Creatinine Ratio 21 (6-20) Glucose Level 93 mg/dL (70-99) Calcium Level 8.9 mg/dL (8.5-10.1) Total Bilirubin 0.3 mg/dL (0.2-1.0) Aspartate Amino Transf (AST/SGOT) 30 U/L (15-37) Alanine Aminotransferase (ALT/SGPT) 15 U/L (14-59) Alkaline Phosphatase 100 U/L (46-116) Total Protein 6.4 g/dL (6.4-8.2) Albumin 2.9 g/dL (3.4-5.0) Albumin/Globulin Ratio 0.8 (1.0-1.7) Medications Current Medications Aspirin (Children'S Aspirin) 324 mg 1X STAT PO Last administered on 03/19/19at 17:50; Start 03/19/19 at 17:32; Stop 03/19/19 at 17:39; Status DC Iohexol (Omnipaque 350 Mg/ml) 60 ml 1X ONCE IV ; Start 03/19/19 at 17:45; Stop 03/19/19 at 17:46; Status DC Lorazepam (Ativan Inj) 1 mg 1X STAT IVP Last administered on 03/19/19at 19:33; Start 03/19/19 at 18:51; Stop 03/19/19 at 18:56; Status DC Pharmacy Consult (C.diff Med Screen By Rx) 1 each 1X ONCE [facility] ; Start 03/20/19 at 09:00; Stop 03/20/19 at 09:01; Status DC Aspirin (Ecotrin) 81 mg DAILYWBKFT PO Last administered on 03/22/19at 08:11; Start 03/20/19 at 08:00 Atorvastatin Calcium (Lipitor) 20 mg HS PO Last administered on 03/21/19 22:23; Start 03/19/19 at 23:00 Carbidopa/Levodopa (Sinemet 25/100) 3 tab TIDWMEALS PO Last administered on 03/22/19at 08:22; Start 03/19/19 at 23:00 Clonidine HCl (Catapres) 0.1 mg PRN Q1HR PRN PO HYPERTENSION Last administered on 03/20/19at 13:41; Start 03/19/19 at 22:00 Clopidogrel Bisulfate (Plavix) 75 mg HS PO Last administered on 03/21/19 22:23; Start 03/19/19 at 23:00 Diltiazem HCl (Cardizem 24hr Cd) 180 mg DAILY PO Last administered on 03/22/19 08:09; Start 03/20/19 at 09:00 Donepezil HCl (Aricept) 10 mg HS PO Last administered on 03/21/19 22:24; Start 03/19/19 at 23:00 Ferrous Sulfate (Feosol) 325 mg DAILY PO Last administered on 03/22/19 08:10; Start 03/20/19 at 09:00 Gabapentin (Neurontin) 300 mg TID PO Last administered on 03/22/19 08:10; Start 03/19/19 at 23:00 Glipizide (Glucotrol) 5 mg DAILY PO Last administered on 03/22/19 08:10; Start 03/20/19 at 09:00 Hydralazine HCl (Apresoline) 25 mg BIDWMEALS PO Last administered on 03/22/19 08:07; Start 03/19/19 at 23:00 Levothyroxine Sodium (Synthroid) 150 mcg DAILY06 PO Last administered on 03/22/19 08:11; Start 03/20/19 at 06:00 Lidocaine (Lidoderm) 1 patch HS TP Last administered on 03/21/19 22:26; Start 03/19/19 at 23:00 Lisinopril (Prinivil) 20 mg DAILY PO Last administered on 03/22/19 08:08; Start 03/20/19 at 09:00 Lorazepam (Ativan) 0.5 mg TIDWMEALS PO Last administered on 03/22/19 08:10; Start 03/19/19 at 23:00 Meloxicam (Mobic) 7.5 mg DAILY PO Last administered on 03/22/19 08:11; Start 03/20/19 at 09:00 Methocarbamol (Robaxin) 750 mg TID PO Last administered on 03/22/19 08:12; Start 03/19/19 at 23:00 Polyethylene Glycol (miraLAX PACKET) 17 gm DAILY PO Last administered on 03/22/19 08:12; Start 03/20/19 at 09:00 Primidone (Mysoline) 100 mg HS PO Last administered on 03/21/19 22:23; Start 03/19/19 at 23:00 Ropinirole HCl (Requip) 1 mg TID PO Last administered on 03/22/19 08:12; Sta rt 03/19/19 at 23:00 Zolpidem Tartrate (Ambien) 5 mg HS PO Last administered on 03/21/19 22:23; Start 03/19/19 at 23:00 Non-Formulary Medication (Budesonide/ Formoterol Fumarate (Symbicort 80-4.5 Mcg Inhaler)) 2 puff BID IH ; Start 03/20/19 at 09:00; Status UNV Buspirone HCl (Buspar) 15 mg TID PO Last administered on 03/22/19 08:10; Start 03/19/19 at 23:00 Vitamin D (Vitamin D3) 5,000 unit DAILY PO Last administered on 03/22/19 08:12; Start 03/20/19 at 09:00 Duloxetine HCl (Cymbalta) 60 mg BID PO Last administered on 03/22/19 08:12; Start 03/19/19 at 23:00 Pantoprazole Sodium (Protonix) 40 mg DAILYAC PO Last administered on 03/20/19 09:07; Start 03/20/19 at 07:30; Stop 03/20/19 at 09:57; Status DC Lactobacillus Rhamnosus (Culturelle) 1 cap DAILY PO Last administered on 03/20/19 09:07; Start 03/20/19 at 09:00; Stop 03/20/19 at 09:56; Status DC Magnesium Oxide (Magnesium Oxide) 400 mg DAILY PO Last administered on 03/22/19 08:10; Start 03/20/19 at 09:00 Non-Formulary Medication (Melatonin ) 10 mg QHS PO ; Start 03/20/19 at 21:00; Status UNV Calcium Polycarbophil (Fibercon) 625 mg BID PO Last administered on 03/22/19 08:07; Start 03/20/19 at 09:00 Mirtazapine (Remeron) 45 mg HS PO Last administered on 03/21/19 22:22; Start 03/19/19 at 23:00 Oxycodone HCl (Roxicodone) 10 mg TID PO Last administered on 03/22/19 08:11; Start 03/19/19 at 23:00 Vitamin E (Vitamin E.) 400 unit DAILY PO Last administered on 03/22/19at 08:10; Start 03/20/19 at 09:00 Budesonide (Pulmicort) 0.5 mg RTBID NEB Last administered on 03/22/19at 07:49; Start 03/20/19 at 08:00 Albuterol Sulfate (Ventolin Neb Soln) 2.5 mg RTQID NEB Last administered on 03/22/19 07:49; Start 03/20/19 at 08:00 Lactobacillus Rhamnosus (Culturelle) 1 cap BID PO Last administered on 03/22/19at 08:10; Start 03/20/19 at 21:00 Famotidine (Pepcid) 20 mg DAILY PO Last administered on 03/22/19at 08:10; Start 03/21/19 at 09:00 Magnesium Hydroxide (Milk Of Magnesia) 2,400 mg 1X ONCE PO Last administered on 03/20/19at 13:20; Start 03/20/19 at 13:30; Stop 03/20/19 at 13:31; Status DC Diclofenac Sodium (Voltaren) 1 minnie BID TP Last administered on 03/22/19at 08:12; Start 03/20/19 at 13:30 Levofloxacin (Levaquin) 750 mg 1X ONCE PO Last administered on 03/21/19at 13:56; Start 03/21/19 at 14:00; Stop 03/21/19 at 14:01; Status DC Dextrose (Dextrose 50%-Water Syringe) 12.5 gm PRN Q15MIN PRN IV SEE COMMENTS Last administered on 03/21/19at 17:09; Start 03/21/19 at 17:00 Active Scripts Active Flector (Diclofenac Epolamine) 1 Each Patch.td12 1 Patch TP BID PRN 30 Days Symbicort 80-4.5 Mcg Inhaler (Budesonide/Formoterol Fumarate) 10.2 Gm Hfa.aer.ad 2 Puff IH BID 30 Days Reported Magnesium Oxide 400 Mg Tablet 400 Mg PO DAILY Atorvastatin Calcium 20 Mg Tablet 20 Mg PO HS Miralax (Polyethylene Glycol 3350) 17 Gm Powd.pack 1 Pkt PO DAILY Oxycodone Hcl Immed.release (Oxycodone Hcl) 10 Mg Tablet 10 Mg PO TID Clonidine Hcl 0.1 Mg Tablet 0.1 Mg PO PRN Q1HR PRN For SBP> 160 May repeat 1 hour after 1st dose if SBP is still >160 Mirtazapine 45 Mg Tablet 45 Mg PO HS Glipizide 5 Mg Tablet 5 Mg PO DAILY Hydralazine Hcl 25 Mg Tablet 1 Tab PO BIDWMEALS Lisinopril 20 Mg Tablet 1 Tab PO DAILY Robaxin-750 (Methocarbamol) 750 Mg Tablet 1 Tab PO TID Meloxicam 7.5 Mg Tablet 1 Tab PO DAILY Probiotic (Lactobacillus Acidophilus) 1 Each Capsule 1 Each PO DAILY Ambien (Zolpidem Tartrate) 5 Mg Tablet 5 Mg PO HS Ferrous Sulfate 325 Mg Tablet 1 Tab PO DAILY Lorazepam 0.5 Mg Tablet 0.5 Mg PO TIDWMEALS Clopidogrel (Clopidogrel Bisulfate) 75 Mg Tablet 75 Mg PO HS Vitamin E (Vitamin E Mixed) 400 Unit Capsule 400 Unit PO DAILY Fiber (Methylcellulose) 500 Mg Tablet 500 Mg PO BID Mysoline (Primidone) 50 Mg Tablet 100 Mg PO HS Vitamin D3 (Cholecalciferol (Vitamin D3)) 5,000 Unit Tablet 1 Tab PO DAILY Melatonin 3 Mg Tablet 10 Mg PO QHS Buspirone Hcl 15 Mg Tablet 1 Tab PO TID Gabapentin (Gabapentin) 300 Mg Capsule 300 Mg PO TID Cartia Xt (Diltiazem Hcl) 180 Mg Cap.er.24h 180 Mg PO DAILY Levothyroxine Sodium 150 Mcg Tablet 1 Tab PO DAILY07 Ropinirole Hcl 1 Mg Tablet 1 Mg PO TID Donepezil Hcl 10 Mg Tablet 1 Tab PO HS Duloxetine Hcl 60 Mg Capsule.dr 60 Mg PO BID Lidoderm (Lidocaine) 700 Mg Adh..patch 1 Patch TP HS Aspir 81 (Aspirin) 81 Mg Tablet.dr 1 Tab PO DAILY Carbidopa-Levodopa 25-100 Tab (Carbidopa/Levodopa) 1 Each Tablet 3 Tab PO TIDWMEALS Nexium Capsule (Esomeprazole Magnesium) 40 Mg Capsule.dr 40 Mg PO DAILY Vitals/I & O Vital Sign - Last 24 Hours 03/21/19 03/21/19 03/21/19 03/21/19 10:32 11:00 13:10 14:20 Temp 98.2 98.2 Pulse 67 Resp 17 18 16 16 B/P (MAP) 167/59 (95) Pulse Ox 97 O2 Delivery Room Air Room Air Room Air Room Air 03/21/19 03/21/19 03/21/19 03/21/19 15:00 15:03 15:05 15:38 Temp 99.0 99.0 Pulse 60 60 60 Resp 18 B/P (MAP) 143/41 (75) 153/49 (83) 139/53 (81) Pulse Ox 97 97 O2 Delivery Room Air Room Air 03/21/19 03/21/19 03/21/19 03/21/19 18:03 18:50 19:10 20:37 Temp 98.7 98.7 Pulse 63 71 Resp 16 B/P (MAP) 135/60 143/36 (71) Pulse Ox 98 99 O2 Delivery Room Air Room Air Room Air 03/21/19 03/21/19 03/21/19 03/22/19 20:37 23:20 23:30 03:32 Temp 98.0 98.0 98.0 98.0 Pulse 68 70 Resp 18 18 B/P (MAP) 155/49 (84) 142/52 (82) Pulse Ox 99 92 94 O2 Delivery Room Air Room Air Room Air Room Air 03/22/19 03/22/19 03/22/19 03/22/19 07:00 07:50 08:07 08:08 Temp 99.0 99.0 Pulse 71 72 72 Resp 18 B/P (MAP) 219/71 (120) 219/71 219/71 Pulse Ox 96 97 O2 Delivery Room Air Room Air 03/22/19 03/22/19 08:09 08:11 Pulse 72 B/P (MAP) 219/71 O2 Delivery Room Air Intake and Output 03/21/19 03/21/19 03/22/19 15:00 23:00 07:00 Intake Total 0 ml 1000 ml Output Total 400 ml Balance 0 ml 1000 ml -400 ml PITER BERMUDEZ MD Mar 22, 2019 09:38
[2019-03-22] MEDS: ONDANSETRON PF 4 MG/2 ML VIAL. IVP PRN (09:45)
[2019-03-22] MEDS ORDERED: ACETAMINOPHEN 325 MG TABLET. PO PRN (09:45)
[2019-03-22 11:00] VITALS: BP 134/46
[2019-03-22 15:00] VITALS: BP 148/49
[2019-03-22] MEDS: SENNOSIDES/DOCUSATE 8.6/50MG TABLET. PO PRN (16:49)
[2019-03-22 19:10] VITALS: BP 151/57
[2019-03-22] MEDS: LIDOCAINE (700MG/PATCH) PATCH. TP SCH (20:52)
[2019-03-22] MEDS: ATORVASTATIN CALCIUM 20 MG TABLET PO SCH (20:53)
[2019-03-22] MEDS: DONEPEZIL HCL 10 MG TABLET. PO SCH (20:53)
[2019-03-22] MEDS: MIRTAZAPINE 15 MG TABLET PO SCH (20:53)
[2019-03-22] MEDS: CLOPIDOGREL BISULFATE 75 MG TABLET PO SCH (20:54)
[2019-03-22] MEDS: PRIMIDONE 50 MG TABLET PO SCH (21:06)
[2019-03-22] MEDS: ZOLPIDEM 5 MG TABLET. PO SCH (21:06)
[2019-03-22 23:23] VITALS: BP 154/56
[2019-03-23 03:43] VITALS: BP 185/74
[2019-03-23 05:59] LABS: ALBUMIN 3.1 g/dL (3.4-5.0); CALCIUM 8.6 mg/dL (8.5-10.1); CREATININE 1.1 mg/dL (0.6-1.0); GFR 48.7; PHOSPHORUS 4.4 mg/dL (2.6-4.7); POTASSIUM 4.1 mmol/L (3.5-5.1)
[2019-03-23] MEDS: LEVOTHYROXINE 150 MCG TABLET PO SCH (06:49)
[2019-03-23 07:00] VITALS: BP 173/45
[2019-03-23] MEDS: ALBUTEROL SULFATE 2.5 MG/3 ML NEBU. NEB SCH ×4 (07:37→20:43)
[2019-03-23] MEDS: BUDESONIDE 0.5 MG/2 ML NEBU. NEB SCH ×2 (07:37→20:43)
[2019-03-23] MEDS: POLYETHYLENE GLYCOL 3350 17 GM PACKET. PO SCH ×2 (09:00→11:42)
[2019-03-23] MEDS: FERROUS SULFATE 325 MG TABLET. PO SCH (09:23)
[2019-03-23] MEDS: LACTOBACILLUS RHAMNOSUS GG 1 CAPSULE. PO SCH ×2 (09:23→21:39)
[2019-03-23] MEDS: FAMOTIDINE 20 MG TABLET. PO SCH (09:23)
[2019-03-23] MEDS: busPIRone 5 MG TABLET. PO SCH ×3 (09:23→21:51)
[2019-03-23] MEDS: CHOLECALCIFEROL (VITAMIN D3) 5,000 UNIT CAPSULE PO SCH (09:24)
[2019-03-23] MEDS: MAGNESIUM OXIDE 400 MG TABLET PO SCH (09:24)
[2019-03-23] MEDS: ASPIRIN ENTERIC COATED 81 MG TABLET.DR. PO SCH (09:24)
[2019-03-23] MEDS: oxyCODONE IR 5 MG TABLET PO SCH ×3 (09:24→21:39)
[2019-03-23] MEDS: CALCIUM POLYCARBOPHIL 625 MG TABLET PO SCH ×2 (09:24→21:40)
[2019-03-23] MEDS: SENNOSIDES/DOCUSATE 8.6/50MG TABLET. PO PRN ×2 (09:24→23:51)
[2019-03-23] MEDS: CARBIDOPA/LEVODOPA 25/100MG TABLET PO SCH ×3 (09:24→16:37)
[2019-03-23] MEDS: LORazepam 0.5 MG TABLET PO SCH ×3 (09:25→16:37)
[2019-03-23] MEDS: VITAMIN E 200 UNIT CAPSULE. PO SCH (09:25)
[2019-03-23] MEDS: LISINOPRIL 20 MG TABLET PO SCH ×2 (09:25→21:40)
[2019-03-23] MEDS: rOPINIRole 1 MG TABLET. PO SCH ×3 (09:25→21:39)
[2019-03-23] MEDS: GABAPENTIN 300 MG CAPSULE. PO SCH ×3 (09:25→21:38)
[2019-03-23] MEDS: DULoxetine HCL 30 MG CAPSULE.DR PO SCH ×2 (09:25→21:38)
[2019-03-23] MEDS: DICLOFENAC SODIUM 1% TOPICAL GEL 100GM TUBE. TP SCH ×2 (09:25→21:37)
[2019-03-23] MEDS: METHOCARBAMOL 750 MG TABLET PO SCH ×3 (09:25→21:39)
[2019-03-23] MEDS: MELOXICAM 7.5 MG TABLET PO SCH (09:25)
[2019-03-23] MEDS: hydrALAZINE 25 MG TABLET PO SCH ×2 (09:27→16:37)
[2019-03-23] MEDS: glipiZIDE 5 MG TABLET PO SCH (09:34)
--- NOTE | 2019-03-23 10:19 | PDOC ---
PROGRESS NOTES History of Present Illness History of Present Illness ASSESSMENT AND PLAN: IMPRESSION: No acute intracranial findings. on ct head Probable transient ischemic attack. MORBID OBESITY mild hyponatremia, volume excess suspected hypertension, pporly controlled COGNITIVE Deficit, long standing HYPOGLYCEMIC EPISODE 03/22 ANXIETY ATTACK TODAY 03/23 admitted. consult Neurology. 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 PT, OT speech therapy. DVT prophylaxis. Full Code. home meds increase her aspirin. fluid restriction bmp today urinary na, random PT/OT Decrease glipizide to 2.5 mg po daily inc lisinopril to 20 mg po bid 28 min pt exam, chart review, > 50% of time spent with exam, chart review, pt care coordination Vitals Vitals Vital Signs Date Time Temp Pulse Resp B/P (MAP) Pulse Ox O2 Delivery O2 Flow Rate FiO2 03/23/19 09:27 73 173/45 03/23/19 09:24 Room Air 03/23/19 07:38 99 03/23/19 07:00 98.9 22 98.9 Physical Exam Physical Exam PHYSICAL EXAMINATION: VITALS: Within normal limits and are stable. GENERAL: No apparent distress. Alert and oriented. HEENT: Head is normocephalic, atraumatic, pupils were equally round and reactive to light and accommodation. NECK: Supple, no JVD, no thyromegaly was noted. LUNGS: Clear to auscultation in all lung martinez without rhonchi or wheezing. HEART: RRR, S1, S2 present. Peripheral pulses intact, no obvious murmurs were noted. ABDOMEN: Soft, nontender. Positive bowel sounds no organomegaly, normal bowel sounds. EXTREMITIES: Without any cyanosis, clubbing, or edema. Pedal pulses intact, Homans sign is negative. NEUROLOGIC: confused, anxious calm PSYCHIATRIC: Normal affect, normal mood. Stable. SKIN: No ulcerations or rashes, good skin turgor, no jaundice. VASCULAR: Good capillary refill, neurovascular bundle appears to be intact. General: Alert, Oriented X3, Cooperative, No acute distress, mild distress Heart: Regular rate, Normal S1 Lungs: Clear Abdomen: Normal bowel sounds, Soft, No tenderness Extremities: No cyanosis, No edema Labs LABS Laboratory Tests Test 03/22/19 11:18 03/22/19 16:49 03/22/19 20:02 03/22/19 20:51 Glucose (Fingerstick) 121 mg/dL (70-99) 97 mg/dL (70-99) 89 mg/dL (70-99) 108 mg/dL (70-99) Test 03/23/19 03:25 03/23/19 04:35 03/23/19 07:58 Glucose (Fingerstick) 97 mg/dL (70-99) 119 mg/dL (70-99) Sodium Level 140 mmol/L (136-145) Potassium Level 4.1 mmol/L (3.5-5.1) Chloride Level 100 mmol/L (98-107) Carbon Dioxide Level 29 mmol/L (21-32) Anion Gap 11 (6-14) Blood Urea Nitrogen 21 mg/dL (7-20) Creatinine 1.1 mg/dL (0.6-1.0) Estimated GFR (Cockcroft-Gault) 48.7 Glucose Level 109 mg/dL (70-99) Calcium Level 8.6 mg/dL (8.5-10.1) Phosphorus Level 4.4 mg/dL (2.6-4.7) Albumin 3.1 g/dL (3.4-5.0) Assessment and Plan Assessmemt and Plan Problems Medical Problems: (1) Acute focal neurological deficit, onset within 3-24 hours Status: Acute (2) TIA (transient ischemic attack) Status: Acute Comment Review of Relevant I have reviewed the following items dina (where applicable) has been applied. Labs Laboratory Tests Test 03/21/19 11:55 03/21/19 16:35 03/21/19 16:58 03/21/19 17:48 Glucose (Fingerstick) 98 mg/dL (70-99) 62 mg/dL (70-99) 58 mg/dL (70-99) 147 mg/dL (70-99) Test 03/21/19 20:30 03/22/19 04:30 03/22/19 07:45 03/22/19 11:18 Glucose (Fingerstick) 121 mg/dL (70-99) 66 mg/dL (70-99) 121 mg/dL (70-99) White Blood Count 5.4 x10^3/uL (4.0-11.0) Red Blood Count 3.66 x10^6/uL (3.50-5.40) Hemoglobin 11.2 g/dL (12.0-15.5) Hematocrit 33.5 % (36.0-47.0) Mean Corpuscular Volume 92 fL (79-100) Mean Corpuscular Hemoglobin 31 pg (25-35) Mean Corpuscular Hemoglobin Concent 33 g/dL (31-37) Red Cell Distribution Width 13.4 % (11.5-14.5) Platelet Count 351 x10^3/uL (140-400) Neutrophils (%) (Auto) 52 % (31-73) Lymphocytes (%) (Auto) 34 % (24-48) Monocytes (%) (Auto) 11 % (0-9) Eosinophils (%) (Auto) 3 % (0-3) Basophils (%) (Auto) 1 % (0-3) Neutrophils # (Auto) 2.8 x10^3/uL (1.8-7.7) Lymphocytes # (Auto) 1.8 x10^3/uL (1.0-4.8) Monocytes # (Auto) 0.6 x10^3/uL (0.0-1.1) Eosinophils # (Auto) 0.2 x10^3/uL (0.0-0.7) Basophils # (Auto) 0.0 x10^3/uL (0.0-0.2) Sodium Level 138 mmol/L (136-145) Potassium Level 4.6 mmol/L (3.5-5.1) Chloride Level 101 mmol/L (98-107) Carbon Dioxide Level 28 mmol/L (21-32) Anion Gap 9 (6-14) Blood Urea Nitrogen 21 mg/dL (7-20) Creatinine 1.0 mg/dL (0.6-1.0) Estimated GFR (Cockcroft-Gault) 54.3 BUN/Creatinine Ratio 21 (6-20) Glucose Level 93 mg/dL (70-99) Calcium Level 8.9 mg/dL (8.5-10.1) Total Bilirubin 0.3 mg/dL (0.2-1.0) Aspartate Amino Transf (AST/SGOT) 30 U/L (15-37) Alanine Aminotransferase (ALT/SGPT) 15 U/L (14-59) Alkaline Phosphatase 100 U/L (46-116) Total Protein 6.4 g/dL (6.4-8.2) Albumin 2.9 g/dL (3.4-5.0) Albumin/Globulin Ratio 0.8 (1.0-1.7) Test 03/22/19 16:49 03/22/19 20:02 03/22/19 20:51 03/23/19 03:25 Glucose (Fingerstick) 97 mg/dL (70-99) 89 mg/dL (70-99) 108 mg/dL (70-99) 97 mg/dL (70-99) Test 03/23/19 04:35 03/23/19 07:58 Sodium Level 140 mmol/L (136-145) Potassium Level 4.1 mmol/L (3.5-5.1) Chloride Level 100 mmol/L (98-107) Carbon Dioxide Level 29 mmol/L (21-32) Anion Gap 11 (6-14) Blood Urea Nitrogen 21 mg/dL (7-20) Creatinine 1.1 mg/dL (0.6-1.0) Estimated GFR (Cockcroft-Gault) 48.7 Glucose Level 109 mg/dL (70-99) Calcium Level 8.6 mg/dL (8.5-10.1) Phosphorus Level 4.4 mg/dL (2.6-4.7) Albumin 3.1 g/dL (3.4-5.0) Glucose (Fingerstick) 119 mg/dL (70-99) Laboratory Tests Test 03/22/19 11:18 03/22/19 16:49 03/22/19 20:02 03/22/19 20:51 Glucose (Fingerstick) 121 mg/dL (70-99) 97 mg/dL (70-99) 89 mg/dL (70-99) 108 mg/dL (70-99) Test 03/23/19 03:25 03/23/19 04:35 03/23/19 07:58 Glucose (Fingerstick) 97 mg/dL (70-99) 119 mg/dL (70-99) Sodium Level 140 mmol/L (136-145) Potassium Level 4.1 mmol/L (3.5-5.1) Chloride Level 100 mmol/L (98-107) Carbon Dioxide Level 29 mmol/L (21-32) Anion Gap 11 (6-14) Blood Urea Nitrogen 21 mg/dL (7-20) Creatinine 1.1 mg/dL (0.6-1.0) Estimated GFR (Cockcroft-Gault) 48.7 Glucose Level 109 mg/dL (70-99) Calcium Level 8.6 mg/dL (8.5-10.1) Phosphorus Level 4.4 mg/dL (2.6-4.7) Albumin 3.1 g/dL (3.4-5.0) Medications Current Medications Aspirin (Children'S Aspirin) 324 mg 1X STAT PO Last administered on 03/19/19 17:50; Start 03/19/19 at 17:32; Stop 03/19/19 at 17:39; Status DC Iohexol (Omnipaque 350 Mg/ml) 60 ml 1X ONCE IV ; Start 03/19/19 at 17:45; Stop 03/19/19 at 17:46; Status DC Lorazepam (Ativan Inj) 1 mg 1X STAT IVP Last administered on 03/19/19 19:33; Start 03/19/19 at 18:51; Stop 03/19/19 at 18:56; Status DC Pharmacy Consult (C.diff Med Screen By Rx) 1 each 1X ONCE [facility] ; Start 03/20/19 at 09:00; Stop 03/20/19 at 09:01; Status DC Aspirin (Ecotrin) 81 mg DAILYWBKFT PO Last administered on 03/23/19 09:24; Start 03/20/19 at 08:00 Atorvastatin Calcium (Lipitor) 20 mg HS PO Last administered on 03/22/19at 20:53; Start 03/19/19 at 23:00 Carbidopa/Levodopa (Sinemet 25/100) 3 tab TIDWMEALS PO Last administered on 03/23/19 09:24; Start 03/19/19 at 23:00 Clonidine HCl (Catapres) 0.1 mg PRN Q1HR PRN PO HYPERTENSION Last administered on 03/20/19 13:41; Start 03/19/19 at 22:00 Clopidogrel Bisulfate (Plavix) 75 mg HS PO Last administered on 03/22/19 20:54; Start 03/19/19 at 23:00 Diltiazem HCl (Cardizem 24hr Cd) 180 mg DAILY PO Last administered on 03/23/19at 09:24; Start 03/20/19 at 09:00 Donepezil HCl (Aricept) 10 mg HS PO Last administered on 03/22/19 20:53; Start 03/19/19 at 23:00 Ferrous Sulfate (Feosol) 325 mg DAILY PO Last administered on 03/23/19 09:23; Start 03/20/19 at 09:00 Gabapentin (Neurontin) 300 mg TID PO Last administered on 03/23/19 09:25; Start 03/19/19 at 23:00 Glipizide (Glucotrol) 5 mg DAILY PO Last administered on 03/22/19 08:10; Start 03/20/19 at 09:00; Stop 03/22/19 at 13:43; Status DC Hydralazine HCl (Apresoline) 25 mg BIDWMEALS PO Last administered on 03/23/19 09:27; Start 03/19/19 at 23:00 Levothyroxine Sodium (Synthroid) 150 mcg DAILY06 PO Last administered on 03/23/19 06:49; Start 03/20/19 at 06:00 Lidocaine (Lidoderm) 1 patch HS TP Last administered on 03/22/19 20:52; Start 03/19/19 at 23:00 Lisinopril (Prinivil) 20 mg DAILY PO Last administered on 03/23/19 09:25; Start 03/20/19 at 09:00 Lorazepam (Ativan) 0.5 mg TIDWMEALS PO Last administered on 03/23/19 09:25; Start 03/19/19 at 23:00 Meloxicam (Mobic) 7.5 mg DAILY PO Last administered on 03/23/19 09:25; Start 03/20/19 at 09:00 Methocarbamol (Robaxin) 750 mg TID PO Last administered on 03/23/19 09:25; Start 03/19/19 at 23:00 Polyethylene Glycol (miraLAX PACKET) 17 gm DAILY PO Last administered on 03/22/19 08:12; Start 03/20/19 at 09:00 Primidone (Mysoline) 100 mg HS PO Last administered on 03/22/19 21:06; Start 03/19/19 at 23:00 Ropinirole HCl (Requip) 1 mg TID PO Last administered on 03/23/19 09:25; Start 03/19/19 at 23:00 Zolpidem Tartrate (Ambien) 5 mg HS PO Last administered on 03/22/19 21:06; Start 03/19/19 at 23:00 Non-Formulary Medication (Budesonide/ Formoterol Fumarate (Symbicort 80-4.5 Mcg Inhaler)) 2 puff BID IH ; Start 03/20/19 at 09:00; Status UNV Buspirone HCl (Buspar) 15 mg TID PO Last administered on 03/23/19 09:23; Start 03/19/19 at 23:00 Vitamin D (Vitamin D3) 5,000 unit DAILY PO Last administered on 03/23/19 09:24; Start 03/20/19 at 09:00 Duloxetine HCl (Cymbalta) 60 mg BID PO Last administered on 03/23/19 09:25; Start 03/19/19 at 23:00 Pantoprazole Sodium (Protonix) 40 mg DAILYAC PO Last administered on 03/20/19 09:07; Start 03/20/19 at 07:30; Stop 03/20/19 at 09:57; Status DC Lactobacillus Rhamnosus (Culturelle) 1 cap DAILY PO Last administered on 03/20/19 09:07; Start 03/20/19 at 09:00; Stop 03/20/19 at 09:56; Status DC Magnesium Oxide (Magnesium Oxide) 400 mg DAILY PO Last administered on 03/23/19 09:24; Start 03/20/19 at 09:00 Non-Formulary Medication (Melatonin ) 10 mg QHS PO ; Start 03/20/19 at 21:00; Status UNV Calcium Polycarbophil (Fibercon) 625 mg BID PO Last administered on 03/23/19 09:24; Start 03/20/19 at 09:00 Mirtazapine (Remeron) 45 mg HS PO Last administered on 03/22/19 20:53; Start 03/19/19 at 23:00 Oxycodone HCl (Roxicodone) 10 mg TID PO Last administered on 03/23/19 09:24; Start 03/19/19 at 23:00 Vitamin E (Vitamin E.) 400 unit DAILY PO Last administered on 03/23/19 09:25; Start 03/20/19 at 09:00 Budesonide (Pulmicort) 0.5 mg RTBID NEB Last administered on 03/23/19 07:37; Start 03/20/19 at 08:00 Albuterol Sulfate (Ventolin Neb Soln) 2.5 mg RTQID NEB Last administered on 03/23/19 07:37; Start 03/20/19 at 08:00 Lactobacillus Rhamnosus (Culturelle) 1 cap BID PO Last administered on 03/23/19 09:23; Start 03/20/19 at 21:00 Famotidine (Pepcid) 20 mg DAILY PO Last administered on 03/23/19 09:23; Start 03/21/19 at 09:00 Magnesium Hydroxide (Milk Of Magnesia) 2,400 mg 1X ONCE PO Last administered on 03/20/19 13:20; Start 03/20/19 at 13:30; Stop 03/20/19 at 13:31; Status DC Diclofenac Sodium (Voltaren) 1 minnie BID TP Last administered on 03/23/19 09:25; Start 03/20/19 at 13:30 Levofloxacin (Levaquin) 750 mg 1X ONCE PO Last administered on 03/21/19 13:56; Start 03/21/19 at 14:00; Stop 03/21/19 at 14:01; Status DC Dextrose (Dextrose 50%-Water Syringe) 12.5 gm PRN Q15MIN PRN IV SEE COMMENTS Last administered on 03/21/19 17:09; Start 03/21/19 at 17:00 Ondansetron HCl (Zofran) 4 mg PRN Q6HRS PRN IVP NAUSEA/VOMITING Last administered on 03/22/19 09:45; Start 03/22/19 at 09:45 Acetaminophen (Tylenol) 650 mg PRN Q6HRS PRN PO PAIN Last administered on 03/22/19 09:46; Start 03/22/19 at 09:45 Glipizide (Glucotrol) 2.5 mg DAILY PO Last administered on 03/23/19 09:34; Start 03/23/19 at 09:00 Senna/Docusate Sodium (Senna Plus) 1 tab PRN BID PRN PO CONSTIPATION Last administered on 11/17/19at 09:24; Start 03/22/19 at 14:45 Active Scripts Active Flector (Diclofenac Epolamine) 1 Each Patch.td12 1 Patch TP BID PRN 30 Days Symbicort 80-4.5 Mcg Inhaler (Budesonide/Formoterol Fumarate) 10.2 Gm Hfa.aer.ad 2 Puff IH BID 30 Days Reported Magnesium Oxide 400 Mg Tablet 400 Mg PO DAILY Atorvastatin Calcium 20 Mg Tablet 20 Mg PO HS Miralax (Polyethylene Glycol 3350) 17 Gm Powd.pack 1 Pkt PO DAILY Oxycodone Hcl Immed.release (Oxycodone Hcl) 10 Mg Tablet 10 Mg PO TID Clonidine Hcl 0.1 Mg Tablet 0.1 Mg PO PRN Q1HR PRN For SBP> 160 May repeat 1 hour after 1st dose if SBP is still >160 Mirtazapine 45 Mg Tablet 45 Mg PO HS Glipizide 5 Mg Tablet 5 Mg PO DAILY Hydralazine Hcl 25 Mg Tablet 1 Tab PO BIDWMEALS Lisinopril 20 Mg Tablet 1 Tab PO DAILY Robaxin-750 (Methocarbamol) 750 Mg Tablet 1 Tab PO TID Meloxicam 7.5 Mg Tablet 1 Tab PO DAILY Probiotic (Lactobacillus Acidophilus) 1 Each Capsule 1 Each PO DAILY Ambien (Zolpidem Tartrate) 5 Mg Tablet 5 Mg PO HS Ferrous Sulfate 325 Mg Tablet 1 Tab PO DAILY Lorazepam 0.5 Mg Tablet 0.5 Mg PO TIDWMEALS Clopidogrel (Clopidogrel Bisulfate) 75 Mg Tablet 75 Mg PO HS Vitamin E (Vitamin E Mixed) 400 Unit Capsule 400 Unit PO DAILY Fiber (Methylcellulose) 500 Mg Tablet 500 Mg PO BID Mysoline (Primidone) 50 Mg Tablet 100 Mg PO HS Vitamin D3 (Cholecalciferol (Vitamin D3)) 5,000 Unit Tablet 1 Tab PO DAILY Melatonin 3 Mg Tablet 10 Mg PO QHS Buspirone Hcl 15 Mg Tablet 1 Tab PO TID Gabapentin (Gabapentin) 300 Mg Capsule 300 Mg PO TID Cartia Xt (Diltiazem Hcl) 180 Mg Cap.er.24h 180 Mg PO DAILY Levothyroxine Sodium 150 Mcg Tablet 1 Tab PO DAILY07 Ropinirole Hcl 1 Mg Tablet 1 Mg PO TID Donepezil Hcl 10 Mg Tablet 1 Tab PO HS Duloxetine Hcl 60 Mg Capsule.dr 60 Mg PO BID Lidoderm (Lidocaine) 700 Mg Adh..patch 1 Patch TP HS Aspir 81 (Aspirin) 81 Mg Tablet.dr 1 Tab PO DAILY Carbidopa-Levodopa 25-100 Tab (Carbidopa/Levodopa) 1 Each Tablet 3 Tab PO TIDWMEALS Nexium Capsule (Esomeprazole Magnesium) 40 Mg Capsule.dr 40 Mg PO DAILY Vitals/I & O Vital Sign - Last 24 Hours 03/22/19 03/22/19 03/22/19 03/22/19 10:50 11:00 13:39 14:39 Temp 99.0 99.0 Pulse 63 Resp 18 B/P (MAP) 134/46 (75) Pulse Ox 97 97 O2 Delivery Room Air Room Air Room Air Room Air 03/22/19 03/22/19 03/22/19 03/22/19 15:00 15:54 16:50 19:10 Temp 98.6 99.4 98.6 99.4 Pulse 68 68 65 Resp 16 20 B/P (MAP) 148/49 (82) 148/49 151/57 (88) Pulse Ox 94 98 O2 Delivery Room Air Room Air Room Air 03/22/19 03/22/19 03/22/19 03/22/19 19:40 19:43 20:54 23:23 Temp 97.9 97.9 Pulse 69 Resp 18 B/P (MAP) 154/56 (88) Pulse Ox 96 93 O2 Delivery Room Air Room Air Room Air Room Air 03/23/19 03/23/19 03/23/19 03/23/19 03:43 07:00 07:38 09:24 Temp 98.1 98.9 98.1 98.9 Pulse 68 73 73 Resp 18 22 B/P (MAP) 185/74 (111) 173/45 (87) 173/45 Pulse Ox 98 98 99 O2 Delivery Room Air Room Air Room Air 03/23/19 03/23/19 03/23/19 09:24 09:25 09:27 Pulse 73 73 B/P (MAP) 173/45 173/45 O2 Delivery Room Air Intake and Output 03/22/19 03/22/19 03/23/19 15:00 23:00 07:00 Intake Total 150 ml 200 ml Balance 150 ml 200 ml PITER BERMUDEZ MD Mar 23, 2019 10:19
[2019-03-23 11:00] VITALS: BP 159/55
[2019-03-23] MEDS ORDERED: LORazepam 0.5 MG TABLET PO ONE (14:45)
[2019-03-23 15:00] VITALS: BP 150/46
[2019-03-23 19:45] VITALS: BP 133/75
[2019-03-23] MEDS: LIDOCAINE (700MG/PATCH) PATCH. TP SCH (21:37)
[2019-03-23] MEDS: MIRTAZAPINE 15 MG TABLET PO SCH (21:38)
[2019-03-23] MEDS: PRIMIDONE 50 MG TABLET PO SCH (21:39)
[2019-03-23] MEDS: ZOLPIDEM 5 MG TABLET. PO SCH (21:39)
[2019-03-23] MEDS: DONEPEZIL HCL 10 MG TABLET. PO SCH (21:39)
[2019-03-23] MEDS: ATORVASTATIN CALCIUM 20 MG TABLET PO SCH (21:50)
[2019-03-23] MEDS: CLOPIDOGREL BISULFATE 75 MG TABLET PO SCH (21:50)
[2019-03-23 23:53] VITALS: BP 145/47
[2019-03-24] VITALS (7 sets, daily range): BP systolic 121–193; BP diastolic 42–77
[2019-03-24 03:07] LABS: HEMOGLOBIN A1C 5.7 % (4.8-5.6)
[2019-03-24] MEDS: LEVOTHYROXINE 150 MCG TABLET PO SCH (05:48)
[2019-03-24] MEDS: ALBUTEROL SULFATE 2.5 MG/3 ML NEBU. NEB SCH ×4 (07:26→20:21)
[2019-03-24] MEDS: BUDESONIDE 0.5 MG/2 ML NEBU. NEB SCH ×2 (07:27→20:21)
--- NOTE | 2019-03-24 08:58 | PDOC ---
PROGRESS NOTES History of Present Illness History of Present Illness ASSESSMENT AND PLAN: IMPRESSION: No acute intracranial findings. on ct head Probable transient ischemic attack. 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 consult Neurology. 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 PT, OT speech therapy. DVT prophylaxis. Full Code. home meds increase her aspirin. fluid restriction bmp today urinary na, random PT/OT Decrease glipizide to 2.5 mg po daily inc lisinopril to 20 mg po bid INC HYDRALIZINE TO 50MG PO BID DILCOLAX SUPP 10MG NOW 28 min pt exam, chart review, > 50% of time spent with exam, chart review, pt care coordination Vitals Vitals Vital Signs Date Time Temp Pulse Resp B/P (MAP) Pulse Ox O2 Delivery O2 Flow Rate FiO2 03/24/19 07:28 93 Room Air 03/24/19 03:56 97.8 80 18 167/59 (95) 97.8 Physical Exam Physical Exam PHYSICAL EXAMINATION: VITALS: Within normal limits and are stable. GENERAL: No apparent distress. Alert and oriented. HEENT: Head is normocephalic, atraumatic, pupils were equally round and reactive to light and accommodation. NECK: Supple, no JVD, no thyromegaly was noted. LUNGS: Clear to auscultation in all lung martinez without rhonchi or wheezing. HEART: RRR, S1, S2 present. Peripheral pulses intact, no obvious murmurs were noted. ABDOMEN: Soft, nontender. Positive bowel sounds no organomegaly, normal bowel sounds. EXTREMITIES: Without any cyanosis, clubbing, or edema. Pedal pulses intact, Homans sign is negative. NEUROLOGIC: confused, anxious calm PSYCHIATRIC: Normal affect, normal mood. Stable. SKIN: No ulcerations or rashes, good skin turgor, no jaundice. VASCULAR: Good capillary refill, neurovascular bundle appears to be intact. General: Alert, Oriented X3, Cooperative, No acute distress, mild distress Heart: Regular rate, Normal S1 Lungs: Clear Abdomen: Normal bowel sounds, Soft, No tenderness Extremities: No cyanosis, No edema Labs LABS LEFT VENTRICLE The left ventricle is normal size. There is borderline concentric left ventricular hypertrophy. The left ventricular systolic function is normal and the ejection fraction is within normal range. The Ejection Fraction is >55%. There is normal LV segmental wall motion. Transmitral Doppler flow pattern is Grade I-abnormal relaxation pattern. RIGHT VENTRICLE The right ventricle is normal size. There is normal right ventricular wall thickness. The right ventricular systolic function is normal. There is a pace maker in the RV/RA. ATRIA The left atrium size is normal. The right atrium size is normal. The interatrial septum is intact with no evidence for an atrial septal defect or patent foramen ovale as noted on 2-D or Doppler imaging. AORTIC VALVE The aortic valve is normal in structure and function. Doppler and Color Flow revealed trace aortic regurgitation. There is no significant aortic valvular stenosis. MITRAL VALVE The mitral valve is normal in structure and function. There is no evidence of mitral valve prolapse. There is no mitral valve stenosis. Doppler and Color-flow revealed trace mitral regurgitation. TRICUSPID VALVE The tricuspid valve is normal in structure and function. Doppler and Color Flow revealed trace to mild tricuspid regurgitation with an estimated PAP of 36 mmHg. There is no tricuspid valve stenosis. PULMONIC VALVE The pulmonary valve is normal in structure and function. Doppler and Color Flow revealed no pulmonic valvular regurgitation. There is no pulmonic valvular stenosis. GREAT VESSELS The aortic root is normal in size. The IVC is normal in size and collapses >50% with inspiration. PERICARDIAL EFFUSION There is no evidence of significant pericardial effusion. Critical Notification Critical Value: No <Conclusion> The left ventricular systolic function is normal and the ejection fraction is within normal range. The Ejection Fraction is >55%. There is normal LV segmental wall motion. There is a pacemaker in the RV/RA. Doppler and Color Flow revealed trace to mild tricuspid regurgitation with an estimated PAP of 36 mmHg. Signed by : Babar Ayala, Electronically Approved : 08/13/2018 16:14:19 Laboratory Tests Test 03/23/19 11:23 03/23/19 14:27 03/23/19 17:01 03/23/19 20:25 Glucose (Fingerstick) 78 mg/dL (70-99) 110 mg/dL (70-99) 112 mg/dL (70-99) 86 mg/dL (70-99) Test 03/24/19 07:46 Glucose (Fingerstick) 89 mg/dL (70-99) Assessment and Plan Assessmemt and Plan Problems Medical Problems: (1) Acute focal neurological deficit, onset within 3-24 hours Status: Acute (2) TIA (transient ischemic attack) Status: Acute Comment Review of Relevant I have reviewed the following items dina (where applicable) has been applied. Labs Laboratory Tests Test 03/22/19 11:18 03/22/19 16:49 03/22/19 20:02 03/22/19 20:51 Glucose (Fingerstick) 121 mg/dL (70-99) 97 mg/dL (70-99) 89 mg/dL (70-99) 108 mg/dL (70-99) Test 03/23/19 03:25 03/23/19 04:35 03/23/19 07:58 03/23/19 11:23 Glucose (Fingerstick) 97 mg/dL (70-99) 119 mg/dL (70-99) 78 mg/dL (70-99) Sodium Level 140 mmol/L (136-145) Potassium Level 4.1 mmol/L (3.5-5.1) Chloride Level 100 mmol/L (98-107) Carbon Dioxide Level 29 mmol/L (21-32) Anion Gap 11 (6-14) Blood Urea Nitrogen 21 mg/dL (7-20) Creatinine 1.1 mg/dL (0.6-1.0) Estimated GFR (Cockcroft-Gault) 48.7 Glucose Level 109 mg/dL (70-99) Hemoglobin A1c 5.7 % (4.8-5.6) Calcium Level 8.6 mg/dL (8.5-10.1) Phosphorus Level 4.4 mg/dL (2.6-4.7) Albumin 3.1 g/dL (3.4-5.0) Test 03/23/19 14:27 03/23/19 17:01 03/23/19 20:25 03/24/19 07:46 Glucose (Fingerstick) 110 mg/dL (70-99) 112 mg/dL (70-99) 86 mg/dL (70-99) 89 mg/dL (70-99) Laboratory Tests Test 03/23/19 11:23 03/23/19 14:27 03/23/19 17:01 03/23/19 20:25 Glucose (Fingerstick) 78 mg/dL (70-99) 110 mg/dL (70-99) 112 mg/dL (70-99) 86 mg/dL (70-99) Test 03/24/19 07:46 Glucose (Fingerstick) 89 mg/dL (70-99) Medications Current Medications Aspirin (Children'S Aspirin) 324 mg 1X STAT PO Last administered on 03/19/19 17:50; Start 03/19/19 at 17:32; Stop 03/19/19 at 17:39; Status DC Iohexol (Omnipaque 350 Mg/ml) 60 ml 1X ONCE IV ; Start 03/19/19 at 17:45; Stop 03/19/19 at 17:46; Status DC Lorazepam (Ativan Inj) 1 mg 1X STAT IVP Last administered on 03/19/19at 19:33; Start 03/19/19 at 18:51; Stop 03/19/19 at 18:56; Status DC Pharmacy Consult (C.diff Med Screen By Rx) 1 each 1X ONCE [facility] ; Start 03/20/19 at 09:00; Stop 03/20/19 at 09:01; Status DC Aspirin (Ecotrin) 81 mg DAILYWBKFT PO Last administered on 03/23/19 09:24; Start 03/20/19 at 08:00 Atorvastatin Calcium (Lipitor) 20 mg HS PO Last administered on 03/23/19 21:50; Start 03/19/19 at 23:00 Carbidopa/Levodopa (Sinemet 25/100) 3 tab TIDWMEALS PO Last administered on 03/23/19 16:37; Start 03/19/19 at 23:00 Clonidine HCl (Catapres) 0.1 mg PRN Q1HR PRN PO HYPERTENSION Last administered on 03/20/19 13:41; Start 03/19/19 at 22:00 Clopidogrel Bisulfate (Plavix) 75 mg HS PO Last administered on 03/23/19 21:50; Start 03/19/19 at 23:00 Diltiazem HCl (Cardizem 24hr Cd) 180 mg DAILY PO Last administered on 03/23/19 09:24; Start 03/20/19 at 09:00 Donepezil HCl (Aricept) 10 mg HS PO Last administered on 03/23/19 21:39; Start 03/19/19 at 23:00 Ferrous Sulfate (Feosol) 325 mg DAILY PO Last administered on 03/23/19 09:23; Start 03/20/19 at 09:00 Gabapentin (Neurontin) 300 mg TID PO Last administered on 03/23/19 21:38; Start 03/19/19 at 23:00 Glipizide (Glucotrol) 5 mg DAILY PO Last administered on 03/22/19 08:10; Start 03/20/19 at 09:00; Stop 03/22/19 at 13:43; Status DC Hydralazine HCl (Apresoline) 25 mg BIDWMEALS PO Last administered on 03/23/19 16:37; Start 03/19/19 at 23:00 Levothyroxine Sodium (Synthroid) 150 mcg DAILY06 PO Last administered on 03/24/19 05:48; Start 03/20/19 at 06:00 Lidocaine (Lidoderm) 1 patch HS TP Last administered on 03/23/19 21:37; Start 03/19/19 at 23:00 Lisinopril (Prinivil) 20 mg DAILY PO Last administered on 03/23/19 09:25; Start 03/20/19 at 09:00; Stop 03/23/19 at 11:36; Status DC Lorazepam (Ativan) 0.5 mg TIDWMEALS PO Last administered on 03/23/19 16:37; Start 03/19/19 at 23:00 Meloxicam (Mobic) 7.5 mg DAILY PO Last administered on 03/23/19 09:25; Start 03/20/19 at 09:00 Methocarbamol (Robaxin) 750 mg TID PO Last administered on 03/23/19 21:39; Start 03/19/19 at 23:00 Polyethylene Glycol (miraLAX PACKET) 17 gm DAILY PO Last administered on 03/23/19 11:42; Start 03/20/19 at 09:00 Primidone (Mysoline) 100 mg HS PO Last administered on 03/23/19 21:39; Start 03/19/19 at 23:00 Ropinirole HCl (Requip) 1 mg TID PO Last administered on 03/23/19 21:39; Start 03/19/19 at 23:00 Zolpidem Tartrate (Ambien) 5 mg HS PO Last administered on 03/23/19 21:39; Start 03/19/19 at 23:00 Non-Formulary Medication (Budesonide/ Formoterol Fumarate (Symbicort 80-4.5 Mcg Inhaler)) 2 puff BID IH ; Start 03/20/19 at 09:00; Status UNV Buspirone HCl (Buspar) 15 mg TID PO Last administered on 03/23/19 21:51; Start 03/19/19 at 23:00 Vitamin D (Vitamin D3) 5,000 unit DAILY PO Last administered on 03/23/19 09:24; Start 03/20/19 at 09:00 Duloxetine HCl (Cymbalta) 60 mg BID PO Last administered on 03/23/19 21:38; Start 03/19/19 at 23:00 Pantoprazole Sodium (Protonix) 40 mg DAILYAC PO Last administered on 03/20/19 09:07; Start 03/20/19 at 07:30; Stop 03/20/19 at 09:57; Status DC Lactobacillus Rhamnosus (Culturelle) 1 cap DAILY PO Last administered on 03/20/19 09:07; Start 03/20/19 at 09:00; Stop 03/20/19 at 09:56; Status DC Magnesium Oxide (Magnesium Oxide) 400 mg DAILY PO Last administered on 03/23/19 09:24; Start 03/20/19 at 09:00 Non-Formulary Medication (Melatonin ) 10 mg QHS PO ; Start 03/20/19 at 21:00; Status UNV Calcium Polycarbophil (Fibercon) 625 mg BID PO Last administered on 03/23/19 21:40; Start 03/20/19 at 09:00 Mirtazapine (Remeron) 45 mg HS PO Last administered on 03/23/19 21:38; Start 03/19/19 at 23:00 Oxycodone HCl (Roxicodone) 10 mg TID PO Last administered on 03/23/19 21:39; Start 03/19/19 at 23:00 Vitamin E (Vitamin E.) 400 unit DAILY PO Last administered on 03/23/19 09:25; Start 03/20/19 at 09:00 Budesonide (Pulmicort) 0.5 mg RTBID NEB Last administered on 03/24/19 07:27; Start 03/20/19 at 08:00 Albuterol Sulfate (Ventolin Neb Soln) 2.5 mg RTQID NEB Last administered on 03/24/19 07:26; Start 03/20/19 at 08:00 Lactobacillus Rhamnosus (Culturelle) 1 cap BID PO Last administered on 03/23/19 21:39; Start 03/20/19 at 21:00 Famotidine (Pepcid) 20 mg DAILY PO Last administered on 03/23/19 09:23; Start 03/21/19 at 09:00 Magnesium Hydroxide (Milk Of Magnesia) 2,400 mg 1X ONCE PO Last administered on 03/20/19 13:20; Start 03/20/19 at 13:30; Stop 03/20/19 at 13:31; Status DC Diclofenac Sodium (Voltaren) 1 minnie BID TP Last administered on 03/23/19 21:37; Start 03/20/19 at 13:30 Levofloxacin (Levaquin) 750 mg 1X ONCE PO Last administered on 03/21/19 13:56; Start 03/21/19 at 14:00; Stop 03/21/19 at 14:01; Status DC Dextrose (Dextrose 50%-Water Syringe) 12.5 gm PRN Q15MIN PRN IV SEE COMMENTS Last administered on 03/21/19 17:09; Start 03/21/19 at 17:00 Ondansetron HCl (Zofran) 4 mg PRN Q6HRS PRN IVP NAUSEA/VOMITING Last administered on 03/22/19 09:45; Start 03/22/19 at 09:45 Acetaminophen (Tylenol) 650 mg PRN Q6HRS PRN PO PAIN Last administered on 03/22/19 09:46; Start 03/22/19 at 09:45 Glipizide (Glucotrol) 2.5 mg DAILY PO Last administered on 03/23/19 09:34; Start 03/23/19 at 09:00 Senna/Docusate Sodium (Senna Plus) 1 tab PRN BID PRN PO CONSTIPATION Last ad ministered on 03/23/19 23:51; Start 03/22/19 at 14:45 Lisinopril (Prinivil) 20 mg BID PO Last administered on 03/23/19at 21:40; Start 03/23/19 at 21:00 Lorazepam (Ativan) 0.5 mg 1X ONCE PO Last administered on 03/23/19at 14:39; Start 03/23/19 at 14:45; Stop 03/23/19 at 14:46; Status DC Active Scripts Active Flector (Diclofenac Epolamine) 1 Each Patch.td12 1 Patch TP BID PRN 30 Days Symbicort 80-4.5 Mcg Inhaler (Budesonide/Formoterol Fumarate) 10.2 Gm Hfa.aer.ad 2 Puff IH BID 30 Days Reported Magnesium Oxide 400 Mg Tablet 400 Mg PO DAILY Atorvastatin Calcium 20 Mg Tablet 20 Mg PO HS Miralax (Polyethylene Glycol 3350) 17 Gm Powd.pack 1 Pkt PO DAILY Oxycodone Hcl Immed.release (Oxycodone Hcl) 10 Mg Tablet 10 Mg PO TID Clonidine Hcl 0.1 Mg Tablet 0.1 Mg PO PRN Q1HR PRN For SBP> 160 May repeat 1 hour after 1st dose if SBP is still >160 Mirtazapine 45 Mg Tablet 45 Mg PO HS Glipizide 5 Mg Tablet 5 Mg PO DAILY Hydralazine Hcl 25 Mg Tablet 1 Tab PO BIDWMEALS Lisinopril 20 Mg Tablet 1 Tab PO DAILY Robaxin-750 (Methocarbamol) 750 Mg Tablet 1 Tab PO TID Meloxicam 7.5 Mg Tablet 1 Tab PO DAILY Probiotic (Lactobacillus Acidophilus) 1 Each Capsule 1 Each PO DAILY Ambien (Zolpidem Tartrate) 5 Mg Tablet 5 Mg PO HS Ferrous Sulfate 325 Mg Tablet 1 Tab PO DAILY Lorazepam 0.5 Mg Tablet 0.5 Mg PO TIDWMEALS Clopidogrel (Clopidogrel Bisulfate) 75 Mg Tablet 75 Mg PO HS Vitamin E (Vitamin E Mixed) 400 Unit Capsule 400 Unit PO DAILY Fiber (Methylcellulose) 500 Mg Tablet 500 Mg PO BID Mysoline (Primidone) 50 Mg Tablet 100 Mg PO HS Vitamin D3 (Cholecalciferol (Vitamin D3)) 5,000 Unit Tablet 1 Tab PO DAILY Melatonin 3 Mg Tablet 10 Mg PO QHS Buspirone Hcl 15 Mg Tablet 1 Tab PO TID Gabapentin (Gabapentin) 300 Mg Capsule 300 Mg PO TID Cartia Xt (Diltiazem Hcl) 180 Mg Cap.er.24h 180 Mg PO DAILY Levothyroxine Sodium 150 Mcg Tablet 1 Tab PO DAILY07 Ropinirole Hcl 1 Mg Tablet 1 Mg PO TID Donepezil Hcl 10 Mg Tablet 1 Tab PO HS Duloxetine Hcl 60 Mg Capsule. 60 Mg PO BID Lidoderm (Lidocaine) 700 Mg Adh..patch 1 Patch TP HS Aspir 81 (Aspirin) 81 Mg Tablet. 1 Tab PO DAILY Carbidopa-Levodopa 25-100 Tab (Carbidopa/Levodopa) 1 Each Tablet 3 Tab PO TIDWMEALS Nexium Capsule (Esomeprazole Magnesium) 40 Mg Capsule. 40 Mg PO DAILY Vitals/I & O Vital Sign - Last 24 Hours 03/23/19 03/23/19 03/23/19 03/23/19 09:24 09:24 09:25 09:27 Pulse 73 73 73 B/P (MAP) 173/45 173/45 173/45 O2 Delivery Room Air 03/23/19 03/23/19 03/23/19 03/23/19 10:24 11:00 11:33 14:40 Temp 98.9 98.9 Pulse 74 Resp 18 B/P (MAP) 159/55 (89) Pulse Ox 97 95 O2 Delivery Room Air Room Air Room Air Room Air 03/23/19 03/23/19 03/23/19 03/23/19 15:00 15:10 15:47 16:37 Temp 98.9 98.9 Pulse 79 79 Resp 20 B/P (MAP) 150/46 (80) 150/46 Pulse Ox 99 96 O2 Delivery Room Air Room Air Room Air 03/23/19 03/23/19 03/23/19 03/23/19 19:40 19:45 20:45 21:39 Temp 98.3 98.3 Pulse 79 Resp 20 B/P (MAP) 133/75 (94) Pulse Ox 99 99 O2 Delivery Room Air Room Air Room Air Room Air 03/23/19 03/23/19 03/23/19 03/24/19 21:40 22:41 23:53 03:56 Temp 98.2 97.8 98.2 97.8 Pulse 79 72 80 Resp 18 18 B/P (MAP) 133/75 145/47 (79) 167/59 (95) Pulse Ox 100 98 O2 Delivery Room Air Room Air Room Air 03/24/19 07:28 Pulse Ox 93 O2 Delivery Room Air Intake and Output 03/23/19 03/23/19 03/24/19 14:59 22:59 06:59 Intake Total 180 ml 800 ml 350 ml Balance 180 ml 800 ml 350 ml PITER BERMUDEZ MD Mar 24, 2019 08:58
[2019-03-24] MEDS: SENNOSIDES/DOCUSATE 8.6/50MG TABLET. PO PRN (09:04)
[2019-03-24] MEDS: VITAMIN E 200 UNIT CAPSULE. PO SCH (09:05)
[2019-03-24] MEDS: LORazepam 0.5 MG TABLET PO SCH ×3 (09:05→19:10)
[2019-03-24] MEDS: busPIRone 5 MG TABLET. PO SCH ×3 (09:05→20:47)
[2019-03-24] MEDS: DICLOFENAC SODIUM 1% TOPICAL GEL 100GM TUBE. TP SCH ×2 (09:05→20:49)
[2019-03-24] MEDS: METHOCARBAMOL 750 MG TABLET PO SCH ×3 (09:05→20:47)
[2019-03-24] MEDS: CHOLECALCIFEROL (VITAMIN D3) 5,000 UNIT CAPSULE PO SCH (09:06)
[2019-03-24] MEDS: DULoxetine HCL 30 MG CAPSULE.DR PO SCH ×2 (09:06→20:47)
[2019-03-24] MEDS: oxyCODONE IR 5 MG TABLET PO SCH ×3 (09:06→20:49)
[2019-03-24] MEDS: rOPINIRole 1 MG TABLET. PO SCH ×3 (09:06→20:47)
[2019-03-24] MEDS: MELOXICAM 7.5 MG TABLET PO SCH (09:06)
[2019-03-24] MEDS: hydrALAZINE 25 MG TABLET PO SCH ×2 (09:07→19:15)
[2019-03-24] MEDS: ASPIRIN ENTERIC COATED 81 MG TABLET.DR. PO SCH (09:07)
[2019-03-24] MEDS: GABAPENTIN 300 MG CAPSULE. PO SCH ×3 (09:07→20:48)
[2019-03-24] MEDS: CARBIDOPA/LEVODOPA 25/100MG TABLET PO SCH ×3 (09:07→19:10)
[2019-03-24] MEDS: FAMOTIDINE 20 MG TABLET. PO SCH (09:07)
[2019-03-24] MEDS: glipiZIDE 5 MG TABLET PO SCH (09:07)
[2019-03-24] MEDS: LISINOPRIL 20 MG TABLET PO SCH ×2 (09:08→20:48)
[2019-03-24] MEDS: POLYETHYLENE GLYCOL 3350 17 GM PACKET. PO SCH (09:08)
[2019-03-24] MEDS: FERROUS SULFATE 325 MG TABLET. PO SCH (09:08)
[2019-03-24] MEDS: MAGNESIUM OXIDE 400 MG TABLET PO SCH (09:08)
[2019-03-24] MEDS: CALCIUM POLYCARBOPHIL 625 MG TABLET PO SCH ×2 (09:08→20:48)
[2019-03-24] MEDS: LACTOBACILLUS RHAMNOSUS GG 1 CAPSULE. PO SCH ×2 (10:25→20:47)
[2019-03-24] MEDS: cloNIDine HCL 0.1 MG TABLET PO PRN (10:25)
[2019-03-24] MEDS ORDERED: hydrALAZINE 25 MG TABLET PO ONE (12:00)
--- NOTE | 2019-03-24 12:02 | PDOC ---
PROGRESS NOTES Assessment Problems Medical Problems: (1) Acute focal neurological deficit, onset within 3-24 hours Status: Acute (2) TIA (transient ischemic attack) Status: Acute Dysarthria, chronic intermittent. Right leg weakness, resolved. Metabolic encephalopathy. Epilepsy Anisocoria Parkinson's diagnosis, looks more like essential tremor on my exam AFib. CAD, s/p stent placement. HTN. HLD. Cognitive impairment. Pacemaker. Plan Continue Plavix 75 mg daily. Continue ASA 81 mg daily. Continue Sinemet at current dosing. OT/PT. FU with PCP. SNU Subjective no complaints Objective Vital Signs Date Time Temp Pulse Resp B/P (MAP) Pulse Ox O2 Delivery O2 Flow Rate FiO2 03/24/19 11:29 92 Room Air 03/24/19 10:25 71 181/69 03/24/19 09:06 17 03/24/19 07:00 98.5 98.5 Intake and Output 03/24/19 07:00 Intake Total 1330 ml Balance 1330 ml Intake Oral 1330 ml # Voids 4 PHYSICAL EXAM Alert. Oriented to time, place and person. Left pupil 2-3 mm, right 1.5 mm. EOMI. CN: no focal findings. Muscle tone: normal. Muscle strength: 4/5 DTR: 2+ Plantar reflex: flexor Gait: not examined in bed. Sensory exam: no abnormal findings. No cerebellar signs elicited. Postural tremor, no resting tremor Review of Relevant I have reviewed the following items dina (where applicable) has been applied. Labs Laboratory Tests Test 03/22/19 16:49 03/22/19 20:02 03/22/19 20:51 03/23/19 03:25 Glucose (Fingerstick) 97 mg/dL (70-99) 89 mg/dL (70-99) 108 mg/dL (70-99) 97 mg/dL (70-99) Test 03/23/19 04:35 03/23/19 07:58 03/23/19 11:23 03/23/19 14:27 Sodium Level 140 mmol/L (136-145) Potassium Level 4.1 mmol/L (3.5-5.1) Chloride Level 100 mmol/L (98-107) Carbon Dioxide Level 29 mmol/L (21-32) Anion Gap 11 (6-14) Blood Urea Nitrogen 21 mg/dL (7-20) Creatinine 1.1 mg/dL (0.6-1.0) Estimated GFR (Cockcroft-Gault) 48.7 Glucose Level 109 mg/dL (70-99) Hemoglobin A1c 5.7 % (4.8-5.6) Calcium Level 8.6 mg/dL (8.5-10.1) Phosphorus Level 4.4 mg/dL (2.6-4.7) Albumin 3.1 g/dL (3.4-5.0) Glucose (Fingerstick) 119 mg/dL (70-99) 78 mg/dL (70-99) 110 mg/dL (70-99) Test 03/23/19 17:01 03/23/19 20:25 03/24/19 07:46 03/24/19 11:25 Glucose (Fingerstick) 112 mg/dL (70-99) 86 mg/dL (70-99) 89 mg/dL (70-99) 74 mg/dL (70-99) Laboratory Tests Test 03/23/19 14:27 03/23/19 17:01 03/23/19 20:25 03/24/19 07:46 Glucose (Fingerstick) 110 mg/dL (70-99) 112 mg/dL (70-99) 86 mg/dL (70-99) 89 mg/dL (70-99) Test 03/24/19 11:25 Glucose (Fingerstick) 74 mg/dL (70-99) Medications Current Medications Aspirin (Children'S Aspirin) 324 mg 1X STAT PO Last administered on 03/19/19at 17:50; Start 03/19/19 at 17:32; Stop 03/19/19 at 17:39; Status DC Iohexol (Omnipaque 350 Mg/ml) 60 ml 1X ONCE IV ; Start 03/19/19 at 17:45; Stop 03/19/19 at 17:46; Status DC Lorazepam (Ativan Inj) 1 mg 1X STAT IVP Last administered on 03/19/19at 19:33; Start 03/19/19 at 18:51; Stop 03/19/19 at 18:56; Status DC Pharmacy Consult (C.diff Med Screen By Rx) 1 each 1X ONCE [facility] ; Start 03/20/19 at 09:00; Stop 03/20/19 at 09:01; Status DC Aspirin (Ecotrin) 81 mg DAILYWBKFT PO Last administered on 03/24/19 09:07; Start 03/20/19 at 08:00 Atorvastatin Calcium (Lipitor) 20 mg HS PO Last administered on 03/23/19 21:50; Start 03/19/19 at 23:00 Carbidopa/Levodopa (Sinemet 25/100) 3 tab TIDWMEALS PO Last administered on 03/24/19 09:07; Start 03/19/19 at 23:00 Clonidine HCl (Catapres) 0.1 mg PRN Q1HR PRN PO HYPERTENSION Last administered on 03/24/19 10:25; Start 03/19/19 at 22:00 Clopidogrel Bisulfate (Plavix) 75 mg HS PO Last administered on 03/23/19 21:50; Start 03/19/19 at 23:00 Diltiazem HCl (Cardizem 24hr Cd) 180 mg DAILY PO Last administered on 03/24/19 09:07; Start 03/20/19 at 09:00 Donepezil HCl (Aricept) 10 mg HS PO Last administered on 03/23/19 21:39; Start 03/19/19 at 23:00 Ferrous Sulfate (Feosol) 325 mg DAILY PO Last administered on 03/24/19 09:08; Start 03/20/19 at 09:00 Gabapentin (Neurontin) 300 mg TID PO Last administered on 03/24/19 09:07; Start 03/19/19 at 23:00 Glipizide (Glucotrol) 5 mg DAILY PO Last administered on 03/22/19 08:10; Start 03/20/19 at 09:00; Stop 03/22/19 at 13:43; Status DC Hydralazine HCl (Apresoline) 25 mg BIDWMEALS PO Last administered on 03/24/19 09:07; Start 03/19/19 at 23:00; Stop 03/24/19 at 11:55; Status DC Levothyroxine Sodium (Synthroid) 150 mcg DAILY06 PO Last administered on 03/24/19 05:48; Start 03/20/19 at 06:00 Lidocaine (Lidoderm) 1 patch HS TP Last administered on 03/23/19 21:37; Start 03/19/19 at 23:00 Lisinopril (Prinivil) 20 mg DAILY PO Last administered on 03/23/19 09:25; Start 03/20/19 at 09:00; Stop 03/23/19 at 11:36; Status DC Lorazepam (Ativan) 0.5 mg TIDWMEALS PO Last administered on 03/24/19 09:05; Start 03/19/19 at 23:00 Meloxicam (Mobic) 7.5 mg DAILY PO Last administered on 03/24/19 09:06; Start 03/20/19 at 09:00 Methocarbamol (Robaxin) 750 mg TID PO Last administered on 03/24/19 09:05; Start 03/19/19 at 23:00 Polyethylene Glycol (miraLAX PACKET) 17 gm DAILY PO Last administered on 03/24/19 09:08; Start 03/20/19 at 09:00 Primidone (Mysoline) 100 mg HS PO Last administered on 03/23/19 21:39; Start 03/19/19 at 23:00 Ropinirole HCl (Requip) 1 mg TID PO Last administered on 03/24/19 09:06; Start 03/19/19 at 23:00 Zolpidem Tartrate (Ambien) 5 mg HS PO Last administered on 03/23/19 21:39; Start 03/19/19 at 23:00 Non-Formulary Medication (Budesonide/ Formoterol Fumarate (Symbicort 80-4.5 Mcg Inhaler)) 2 puff BID IH ; Start 03/20/19 at 09:00; Status UNV Buspirone HCl (Buspar) 15 mg TID PO Last administered on 03/24/19 09:05; Start 03/19/19 at 23:00 Vitamin D (Vitamin D3) 5,000 unit DAILY PO Last administered on 03/24/19 09:06; Start 03/20/19 at 09:00 Duloxetine HCl (Cymbalta) 60 mg BID PO Last administered on 03/24/19 09:06; Start 03/19/19 at 23:00 Pantoprazole Sodium (Protonix) 40 mg DAILYAC PO Last administered on 03/20/19 09:07; Start 03/20/19 at 07:30; Stop 03/20/19 at 09:57; Status DC Lactobacillus Rhamnosus (Culturelle) 1 cap DAILY PO Last administered on 03/20/19 09:07; Start 03/20/19 at 09:00; Stop 03/20/19 at 09:56; Status DC Magnesium Oxide (Magnesium Oxide) 400 mg DAILY PO Last administered on 03/24/19 09:08; Start 03/20/19 at 09:00 Non-Formulary Medication (Melatonin ) 10 mg QHS PO ; Start 03/20/19 at 21:00; Status UNV Calcium Polycarbophil (Fibercon) 625 mg BID PO Last administered on 03/24/19 09:08; Start 03/20/19 at 09:00 Mirtazapine (Remeron) 45 mg HS PO Last administered on 03/23/19 21:38; Start 03/19/19 at 23:00 Oxycodone HCl (Roxicodone) 10 mg TID PO Last administered on 03/24/19 09:06; Start 03/19/19 at 23:00 Vitamin E (Vitamin E.) 400 unit DAILY PO Last administered on 03/24/19 09:05; Start 03/20/19 at 09:00 Budesonide (Pulmicort) 0.5 mg RTBID NEB Last administered on 03/24/19 07:27; Start 03/20/19 at 08:00 Albuterol Sulfate (Ventolin Neb Soln) 2.5 mg RTQID NEB Last administered on 03/24/19 11:29; Start 03/20/19 at 08:00 Lactobacillus Rhamnosus (Culturelle) 1 cap BID PO Last administered on 03/24/19at 10:25; Start 03/20/19 at 21:00 Famotidine (Pepcid) 20 mg DAILY PO Last administered on 03/24/19 09:07; Start 03/21/19 at 09:00 Magnesium Hydroxide (Milk Of Magnesia) 2,400 mg 1X ONCE PO Last administered on 03/20/19 13:20; Start 03/20/19 at 13:30; Stop 03/20/19 at 13:31; Status DC Diclofenac Sodium (Voltaren) 1 minnie BID TP Last administered on 03/24/19 09:05; Start 03/20/19 at 13:30 Levofloxacin (Levaquin) 750 mg 1X ONCE PO Last administered on 03/21/19 13:56; Start 03/21/19 at 14:00; Stop 03/21/19 at 14:01; Status DC Dextrose (Dextrose 50%-Water Syringe) 12.5 gm PRN Q15MIN PRN IV SEE COMMENTS Last administered on 03/21/19 17:09; Start 03/21/19 at 17:00 Ondansetron HCl (Zofran) 4 mg PRN Q6HRS PRN IVP NAUSEA/VOMITING Last administered on 03/22/19 09:45; Start 03/22/19 at 09:45 Acetaminophen (Tylenol) 650 mg PRN Q6HRS PRN PO PAIN Last administered on 03/22/19 09:46; Start 03/22/19 at 09:45 Glipizide (Glucotrol) 2.5 mg DAILY PO Last administered on 03/24/19 09:07; Start 03/23/19 at 09:00 Senna/Docusate Sodium (Senna Plus) 1 tab PRN BID PRN PO CONSTIPATION Last administered on 03/24/19 09:04; Start 03/22/19 at 14:45 Lisinopril (Prinivil) 20 mg BID PO Last administered on 03/24/19 09:08; Start 03/23/19 at 21:00 Lorazepam (Ativan) 0.5 mg 1X ONCE PO Last administered on 03/23/19 14:39; Start 03/23/19 at 14:45; Stop 03/23/19 at 14:46; Status DC Hydralazine HCl (Apresoline) 50 mg BIDWMEALS PO ; Start 03/24/19 at 12:00; Status UNV Active Scripts Active Flector (Diclofenac Epolamine) 1 Each Patch.td12 1 Patch TP BID PRN 30 Days Symbicort 80-4.5 Mcg Inhaler (Budesonide/Formoterol Fumarate) 10.2 Gm Hfa.aer.ad 2 Puff IH BID 30 Days Reported Magnesium Oxide 400 Mg Tablet 400 Mg PO DAILY Atorvastatin Calcium 20 Mg Tablet 20 Mg PO HS Miralax (Polyethylene Glycol 3350) 17 Gm Powd.pack 1 Pkt PO DAILY Oxycodone Hcl Immed.release (Oxycodone Hcl) 10 Mg Tablet 10 Mg PO TID Clonidine Hcl 0.1 Mg Tablet 0.1 Mg PO PRN Q1HR PRN For SBP> 160 May repeat 1 hour after 1st dose if SBP is still >160 Mirtazapine 45 Mg Tablet 45 Mg PO HS Glipizide 5 Mg Tablet 5 Mg PO DAILY Hydralazine Hcl 25 Mg Tablet 1 Tab PO BIDWMEALS Lisinopril 20 Mg Tablet 1 Tab PO DAILY Robaxin-750 (Methocarbamol) 750 Mg Tablet 1 Tab PO TID Meloxicam 7.5 Mg Tablet 1 Tab PO DAILY Probiotic (Lactobacillus Acidophilus) 1 Each Capsule 1 Each PO DAILY Ambien (Zolpidem Tartrate) 5 Mg Tablet 5 Mg PO HS Ferrous Sulfate 325 Mg Tablet 1 Tab PO DAILY Lorazepam 0.5 Mg Tablet 0.5 Mg PO TIDWMEALS Clopidogrel (Clopidogrel Bisulfate) 75 Mg Tablet 75 Mg PO HS Vitamin E (Vitamin E Mixed) 400 Unit Capsule 400 Unit PO DAILY Fiber (Methylcellulose) 500 Mg Tablet 500 Mg PO BID Mysoline (Primidone) 50 Mg Tablet 100 Mg PO HS Vitamin D3 (Cholecalciferol (Vitamin D3)) 5,000 Unit Tablet 1 Tab PO DAILY Melatonin 3 Mg Tablet 10 Mg PO QHS Buspirone Hcl 15 Mg Tablet 1 Tab PO TID Gabapentin (Gabapentin) 300 Mg Capsule 300 Mg PO TID Cartia Xt (Diltiazem Hcl) 180 Mg Cap.er.24h 180 Mg PO DAILY Levothyroxine Sodium 150 Mcg Tablet 1 Tab PO DAILY07 Ropinirole Hcl 1 Mg Tablet 1 Mg PO TID Donepezil Hcl 10 Mg Tablet 1 Tab PO HS Duloxetine Hcl 60 Mg Capsule.dr 60 Mg PO BID Lidoderm (Lidocaine) 700 Mg Adh..patch 1 Patch TP HS Aspir 81 (Aspirin) 81 Mg Tablet.dr 1 Tab PO DAILY Carbidopa-Levodopa 25-100 Tab (Carbidopa/Levodopa) 1 Each Tablet 3 Tab PO TIDWMEALS Nexium Capsule (Esomeprazole Magnesium) 40 Mg Capsule.dr 40 Mg PO DAILY Vitals/I & O Vital Sign - Last 24 Hours 03/23/19 03/23/19 03/23/19 03/23/19 14:40 15:00 15:10 15:47 Temp 98.9 98.9 Pulse 79 Resp 20 B/P (MAP) 150/46 (80) Pulse Ox 99 96 O2 Delivery Room Air Room Air Room Air Room Air 03/23/19 03/23/19 03/23/19 03/23/19 16:37 19:40 19:45 20:45 Temp 98.3 98.3 Pulse 79 79 Resp 20 B/P (MAP) 150/46 133/75 (94) Pulse Ox 99 99 O2 Delivery Room Air Room Air Room Air 03/23/19 03/23/19 03/23/19 03/23/19 21:39 21:40 22:41 23:53 Temp 98.2 98.2 Pulse 79 72 Resp 18 B/P (MAP) 133/75 145/47 (79) Pulse Ox 100 O2 Delivery Room Air Room Air Room Air 03/24/19 03/24/19 03/24/19 03/24/19 03:56 07:00 07:28 09:06 Temp 97.8 98.5 97.8 98.5 Pulse 80 75 Resp 18 18 17 B/P (MAP) 167/59 (95) 192/70 (110) Pulse Ox 98 99 93 O2 Delivery Room Air Room Air Room Air Room Air 03/24/19 03/24/19 03/24/19 03/24/19 09:07 09:07 09:08 10:25 Pulse 75 75 75 71 B/P (MAP) 192/70 192/70 192/70 181/69 03/24/19 11:29 Pulse Ox 92 O2 Delivery Room Air Intake and Output 03/23/19 03/23/19 03/24/19 15:00 23:00 07:00 Intake Total 180 ml 800 ml 350 ml Balance 180 ml 800 ml 350 ml VANESSA LITTLEJOHN MD Mar 24, 2019 12:02
[2019-03-24 12:54] LABS: BASO % 1 % (0-3); EOS # 0.1 x10^3/uL (0.0-0.7); EOS % 3 % (0-3); HEMATOCRIT 35.1 % (36.0-47.0); HEMOGLOBIN 11.8 g/dL (12.0-15.5); LYMPH # 1.5 x10^3/uL (1.0-4.8); LYMPH % 32 % (24-48); MEAN CORPUSCULAR HEMOGLOBIN 31 pg (25-35); MEAN CORPUSCULAR HGB CONC 34 g/dL (31-37); MEAN CORPUSCULAR VOLUME 92 fL (79-100); MONO # 0.4 x10^3/uL (0.0-1.1); MONO % 8 % (0-9); NEUT # 2.6 x10^3/uL (1.8-7.7); NEUT % 57 % (31-73); PLATELET COUNT 342 x10^3/uL (140-400); RED BLOOD COUNT 3.81 x10^6/uL (3.50-5.40); RED CELL DISTRIBUTION WIDTH 13.7 % (11.5-14.5); WHITE BLOOD COUNT 4.6 x10^3/uL (4.0-11.0)
[2019-03-24] MEDS ORDERED: BISACODYL 10 MG SUPP.RECT. PR ONE (13:00)
[2019-03-24] MEDS ORDERED: BISACODYL 10 MG SUPP.RECT. PR PRN (13:00)
--- NOTE | 2019-03-24 15:29 | NUR ---
SW following pt for dc planning. Chart reviewed and VEGA RN. Pt lives at home with family. PT/OT recommends HH. Pt has used [facility] in August 2018. SW will continue to follow pt.
--- NOTE | 2019-03-24 17:43 | PDOC ---
PROGRESS NOTES Subjective Subjective Patient seen and examined The patient feels fatigued today Objective Objective Vital Signs Date Time Temp Pulse Resp B/P (MAP) Pulse Ox O2 Delivery O2 Flow Rate FiO2 03/24/19 16:07 92 Room Air 03/24/19 15:00 99.0 71 18 137/42 (73) 99.0 Intake and Output 03/24/19 07:00 Intake Total 1330 ml Balance 1330 ml Intake Oral 1330 ml # Voids 4 Physical Exam Abdomen: Normal bowel sounds Heart: Regular rate General: mild distress Lungs: Other (slightly decreased breath sounds) Assessment Assessment Problems Medical Problems: (1) Acute focal neurological deficit, onset within 3-24 hours Status: Acute (2) TIA (transient ischemic attack) Status: Acute 1. Hypertension; elevated but labile. medications adjusted as above. 2. Possible CVA with dysarthria, weakness. Neuro following 3. Metabolic Encephalopathy. Improved 4. C/o CVA with left sided weakness. Right LE weakness. 5. Right carotid artery stenosis: moderate per doppler 6. Hx of CV/and parkinsons/dementia 7. CAD; past stent to PLB, clinically stable 8. Hyperlipidemia 9. PAFIB; currently SR 10. PPM in situ: ([facility]) 11. factor V leiden deficiency Comment Review of Relevant I have reviewed the following items dina (where applicable) has been applied. Labs Laboratory Tests Test 03/22/19 20:02 03/22/19 20:51 03/23/19 03:25 03/23/19 04:35 Glucose (Fingerstick) 89 mg/dL (70-99) 108 mg/dL (70-99) 97 mg/dL (70-99) Sodium Level 140 mmol/L (136-145) Potassium Level 4.1 mmol/L (3.5-5.1) Chloride Level 100 mmol/L (98-107) Carbon Dioxide Level 29 mmol/L (21-32) Anion Gap 11 (6-14) Blood Urea Nitrogen 21 mg/dL (7-20) Creatinine 1.1 mg/dL (0.6-1.0) Estimated GFR (Cockcroft-Gault) 48.7 Glucose Level 109 mg/dL (70-99) Hemoglobin A1c 5.7 % (4.8-5.6) Calcium Level 8.6 mg/dL (8.5-10.1) Phosphorus Level 4.4 mg/dL (2.6-4.7) Albumin 3.1 g/dL (3.4-5.0) Test 03/23/19 07:58 03/23/19 11:23 03/23/19 14:27 03/23/19 17:01 Glucose (Fingerstick) 119 mg/dL (70-99) 78 mg/dL (70-99) 110 mg/dL (70-99) 112 mg/dL (70-99) Test 03/23/19 20:25 03/24/19 07:46 03/24/19 11:25 03/24/19 12:40 Glucose (Fingerstick) 86 mg/dL (70-99) 89 mg/dL (70-99) 74 mg/dL (70-99) White Blood Count 4.6 x10^3/uL (4.0-11.0) Red Blood Count 3.81 x10^6/uL (3.50-5.40) Hemoglobin 11.8 g/dL (12.0-15.5) Hematocrit 35.1 % (36.0-47.0) Mean Corpuscular Volume 92 fL (79-100) Mean Corpuscular Hemoglobin 31 pg (25-35) Mean Corpuscular Hemoglobin Concent 34 g/dL (31-37) Red Cell Distribution Width 13.7 % (11.5-14.5) Platelet Count 342 x10^3/uL (140-400) Neutrophils (%) (Auto) 57 % (31-73) Lymphocytes (%) (Auto) 32 % (24-48) Monocytes (%) (Auto) 8 % (0-9) Eosinophils (%) (Auto) 3 % (0-3) Basophils (%) (Auto) 1 % (0-3) Neutrophils # (Auto) 2.6 x10^3/uL (1.8-7.7) Lymphocytes # (Auto) 1.5 x10^3/uL (1.0-4.8) Monocytes # (Auto) 0.4 x10^3/uL (0.0-1.1) Eosinophils # (Auto) 0.1 x10^3/uL (0.0-0.7) Basophils # (Auto) 0.0 x10^3/uL (0.0-0.2) Test 03/24/19 16:48 Glucose (Fingerstick) 73 mg/dL (70-99) Laboratory Tests Test 03/23/19 20:25 03/24/19 07:46 03/24/19 11:25 03/24/19 12:40 Glucose (Fingerstick) 86 mg/dL (70-99) 89 mg/dL (70-99) 74 mg/dL (70-99) White Blood Count 4.6 x10^3/uL (4.0-11.0) Red Blood Count 3.81 x10^6/uL (3.50-5.40) Hemoglobin 11.8 g/dL (12.0-15.5) Hematocrit 35.1 % (36.0-47.0) Mean Corpuscular Volume 92 fL (79-100) Mean Corpuscular Hemoglobin 31 pg (25-35) Mean Corpuscular Hemoglobin Concent 34 g/dL (31-37) Red Cell Distribution Width 13.7 % (11.5-14.5) Platelet Count 342 x10^3/uL (140-400) Neutrophils (%) (Auto) 57 % (31-73) Lymphocytes (%) (Auto) 32 % (24-48) Monocytes (%) (Auto) 8 % (0-9) Eosinophils (%) (Auto) 3 % (0-3) Basophils (%) (Auto) 1 % (0-3) Neutrophils # (Auto) 2.6 x10^3/uL (1.8-7.7) Lymphocytes # (Auto) 1.5 x10^3/uL (1.0-4.8) Monocytes # (Auto) 0.4 x10^3/uL (0.0-1.1) Eosinophils # (Auto) 0.1 x10^3/uL (0.0-0.7) Basophils # (Auto) 0.0 x10^3/uL (0.0-0.2) Test 03/24/19 16:48 Glucose (Fingerstick) 73 mg/dL (70-99) Medications Current Medications Aspirin (Children'S Aspirin) 324 mg 1X STAT PO Last administered on 03/19/19at 17:50; Start 03/19/19 at 17:32; Stop 03/19/19 at 17:39; Status DC Iohexol (Omnipaque 350 Mg/ml) 60 ml 1X ONCE IV ; Start 03/19/19 at 17:45; Stop 03/19/19 at 17:46; Status DC Lorazepam (Ativan Inj) 1 mg 1X STAT IVP Last administered on 03/19/19 19:33; Start 03/19/19 at 18:51; Stop 03/19/19 at 18:56; Status DC Pharmacy Consult (C.diff Med Screen By Rx) 1 each 1X ONCE [facility] ; Start 03/20/19 at 09:00; Stop 03/20/19 at 09:01; Status DC Aspirin (Ecotrin) 81 mg DAILYWBKFT PO Last administered on 03/24/19 09:07; Start 03/20/19 at 08:00 Atorvastatin Calcium (Lipitor) 20 mg HS PO Last administered on 03/23/19 21:50; Start 03/19/19 at 23:00 Carbidopa/Levodopa (Sinemet 25/100) 3 tab TIDWMEALS PO Last administered on 03/24/19 12:31; Start 03/19/19 at 23:00 Clonidine HCl (Catapres) 0.1 mg PRN Q1HR PRN PO HYPERTENSION Last administered on 03/24/19 10:25; Start 03/19/19 at 22:00 Clopidogrel Bisulfate (Plavix) 75 mg HS PO Last administered on 03/23/19 21 :50; Start 03/19/19 at 23:00 Diltiazem HCl (Cardizem 24hr Cd) 180 mg DAILY PO Last administered on 03/24/19at 09:07; Start 03/20/19 at 09:00 Donepezil HCl (Aricept) 10 mg HS PO Last administered on 03/23/19 21:39; Start 03/19/19 at 23:00 Ferrous Sulfate (Feosol) 325 mg DAILY PO Last administered on 03/24/19 09:08; Start 03/20/19 at 09:00 Gabapentin (Neurontin) 300 mg TID PO Last administered on 03/24/19 13:32; Start 03/19/19 at 23:00 Glipizide (Glucotrol) 5 mg DAILY PO Last administered on 03/22/19 08:10; Start 03/20/19 at 09:00; Stop 03/22/19 at 13:43; Status DC Hydralazine HCl (Apresoline) 25 mg BIDWMEALS PO Last administered on 03/24/19 09:07; Start 03/19/19 at 23:00; Stop 03/24/19 at 11:55; Status DC Levothyroxine Sodium (Synthroid) 150 mcg DAILY06 PO Last administered on 03/24/19 05:48; Start 03/20/19 at 06:00 Lidocaine (Lidoderm) 1 patch HS TP Last administered on 03/23/19 21:37; Start 03/19/19 at 23:00 Lisinopril (Prinivil) 20 mg DAILY PO Last administered on 03/23/19 09:25; Start 03/20/19 at 09:00; Stop 03/23/19 at 11:36; Status DC Lorazepam (Ativan) 0.5 mg TIDWMEALS PO Last administered on 03/24/19 12:31; Start 03/19/19 at 23:00 Meloxicam (Mobic) 7.5 mg DAILY PO Last administered on 03/24/19 09:06; Start 03/20/19 at 09:00 Methocarbamol (Robaxin) 750 mg TID PO Last administered on 03/24/19 13:32; Start 03/19/19 at 23:00 Polyethylene Glycol (miraLAX PACKET) 17 gm DAILY PO Last administered on 03/24/19 09:08; Start 03/20/19 at 09:00 Primidone (Mysoline) 100 mg HS PO Last administered on 03/23/19 21:39; Start 03/19/19 at 23:00 Ropinirole HCl (Requip) 1 mg TID PO Last administered on 03/24/19 13:32; Start 03/19/19 at 23:00 Zolpidem Tartrate (Ambien) 5 mg HS PO Last administered on 03/23/19 21:39; Start 03/19/19 at 23:00 Non-Formulary Medication (Budesonide/ Formoterol Fumarate (Symbicort 80-4.5 Mcg Inhaler)) 2 puff BID IH ; Start 03/20/19 at 09:00; Status UNV Buspirone HCl (Buspar) 15 mg TID PO Last administered on 03/24/19 13:32; Start 03/19/19 at 23:00 Vitamin D (Vitamin D3) 5,000 unit DAILY PO Last administered on 03/24/19 09:06; Start 03/20/19 at 09:00 Duloxetine HCl (Cymbalta) 60 mg BID PO Last administered on 03/24/19 09:06; Start 03/19/19 at 23:00 Pantoprazole Sodium (Protonix) 40 mg DAILYAC PO Last administered on 03/20/19 09:07; Start 03/20/19 at 07:30; Stop 03/20/19 at 09:57; Status DC Lactobacillus Rhamnosus (Culturelle) 1 cap DAILY PO Last administered on 03/20/19 09:07; Start 03/20/19 at 09:00; Stop 03/20/19 at 09:56; Status DC Magnesium Oxide (Magnesium Oxide) 400 mg DAILY PO Last administered on 03/24/19 09:08; Start 03/20/19 at 09:00 Non-Formulary Medication (Melatonin ) 10 mg QHS PO ; Start 03/20/19 at 21:00; Status UNV Calcium Polycarbophil (Fibercon) 625 mg BID PO Last administered on 03/24/19 09:08; Start 03/20/19 at 09:00 Mirtazapine (Remeron) 45 mg HS PO Last administered on 03/23/19 21:38; Start 03/19/19 at 23:00 Oxycodone HCl (Roxicodone) 10 mg TID PO Last administered on 03/24/19 13:33; Start 03/19/19 at 23:00 Vitamin E (Vitamin E.) 400 unit DAILY PO Last administered on 03/24/19 09:05; Start 03/20/19 at 09:00 Budesonide (Pulmicort) 0.5 mg RTBID NEB Last administered on 03/24/19 07:27; Start 03/20/19 at 08:00 Albuterol Sulfate (Ventolin Neb Soln) 2.5 mg RTQID NEB Last administered on 03/24/19 16:06; Start 03/20/19 at 08:00 Lactobacillus Rhamnosus (Culturelle) 1 cap BID PO Last administered on 03/24/19 10:25; Start 03/20/19 at 21:00 Famotidine (Pepcid) 20 mg DAILY PO Last administered on 03/24/19 09:07; Start 03/21/19 at 09:00 Magnesium Hydroxide (Milk Of Magnesia) 2,400 mg 1X ONCE PO Last administered on 03/20/19 13:20; Start 03/20/19 at 13:30; Stop 03/20/19 at 13:31; Status DC Diclofenac Sodium (Voltaren) 1 minnie BID TP Last administered on 03/24/19 09:05; Start 03/20/19 at 13:30 Levofloxacin (Levaquin) 750 mg 1X ONCE PO Last administered on 03/21/19 13:56; Start 03/21/19 at 14:00; Stop 03/21/19 at 14:01; Status DC Dextrose (Dextrose 50%-Water Syringe) 12.5 gm PRN Q15MIN PRN IV SEE COMMENTS Last administered on 03/21/19 17:09; Start 03/21/19 at 17:00 Ondansetron HCl (Zofran) 4 mg PRN Q6HRS PRN IVP NAUSEA/VOMITING Last administered on 03/22/19 09:45; Start 03/22/19 at 09:45 Acetaminophen (Tylenol) 650 mg PRN Q6HRS PRN PO PAIN Last administered on 03/22/19 09:46; Start 03/22/19 at 09:45 Glipizide (Glucotrol) 2.5 mg DAILY PO Last administered on 03/24/19 09:07; Start 03/23/19 at 09:00 Senna/Docusate Sodium (Senna Plus) 1 tab PRN BID PRN PO CONSTIPATION Last administered on 03/24/19 09:04; Start 03/22/19 at 14:45 Lisinopril (Prinivil) 20 mg BID PO Last administered on 03/24/19 09:08; Start 03/23/19 at 21:00 Lorazepam (Ativan) 0.5 mg 1X ONCE PO Last administered on 03/23/19 14:39; Start 03/23/19 at 14:45; Stop 03/23/19 at 14:46; Status DC Hydralazine HCl (Apresoline) 50 mg BIDWMEALS PO ; Start 03/24/19 at 17:00 Hydralazine HCl (Apresoline) 25 mg ONCE ONCE PO Last administered on 03/24/19at 12:31; Start 03/24/19 at 12:00; Stop 03/24/19 at 12:01; Status DC Bisacodyl (Dulcolax Supp) 10 mg 1X ONCE CA ; Start 03/24/19 at 13:00; Stop 03/24/19 at 13:01; Status DC Bisacodyl (Dulcolax Supp) 10 mg PRN DAILY PRN CA CONSTIPATION; Start 03/24/19 at 13:00 Active Scripts Active Flector (Diclofenac Epolamine) 1 Each Patch.td12 1 Patch TP BID PRN 30 Days Symbicort 80-4.5 Mcg Inhaler (Budesonide/Formoterol Fumarate) 10.2 Gm Hfa.aer.ad 2 Puff IH BID 30 Days Reported Magnesium Oxide 400 Mg Tablet 400 Mg PO DAILY Atorvastatin Calcium 20 Mg Tablet 20 Mg PO HS Miralax (Polyethylene Glycol 3350) 17 Gm Powd.pack 1 Pkt PO DAILY Oxycodone Hcl Immed.release (Oxycodone Hcl) 10 Mg Tablet 10 Mg PO TID Clonidine Hcl 0.1 Mg Tablet 0.1 Mg PO PRN Q1HR PRN For SBP> 160 May repeat 1 hour after 1st dose if SBP is still >160 Mirtazapine 45 Mg Tablet 45 Mg PO HS Glipizide 5 Mg Tablet 5 Mg PO DAILY Hydralazine Hcl 25 Mg Tablet 1 Tab PO BIDWMEALS Lisinopril 20 Mg Tablet 1 Tab PO DAILY Robaxin-750 (Methocarbamol) 750 Mg Tablet 1 Tab PO TID Meloxicam 7.5 Mg Tablet 1 Tab PO DAILY Probiotic (Lactobacillus Acidophilus) 1 Each Capsule 1 Each PO DAILY Ambien (Zolpidem Tartrate) 5 Mg Tablet 5 Mg PO HS Ferrous Sulfate 325 Mg Tablet 1 Tab PO DAILY Lorazepam 0.5 Mg Tablet 0.5 Mg PO TIDWMEALS Clopidogrel (Clopidogrel Bisulfate) 75 Mg Tablet 75 Mg PO HS Vitamin E (Vitamin E Mixed) 400 Unit Capsule 400 Unit PO DAILY Fiber (Methylcellulose) 500 Mg Tablet 500 Mg PO BID Mysoline (Primidone) 50 Mg Tablet 100 Mg PO HS Vitamin D3 (Cholecalciferol (Vitamin D3)) 5,000 Unit Tablet 1 Tab PO DAILY Melatonin 3 Mg Tablet 10 Mg PO QHS Buspirone Hcl 15 Mg Tablet 1 Tab PO TID Gabapentin (Gabapentin) 300 Mg Capsule 300 Mg PO TID Cartia Xt (Diltiazem Hcl) 180 Mg Cap.er.24h 180 Mg PO DAILY Levothyroxine Sodium 150 Mcg Tablet 1 Tab PO DAILY07 Ropinirole Hcl 1 Mg Tablet 1 Mg PO TID Donepezil Hcl 10 Mg Tablet 1 Tab PO HS Duloxetine Hcl 60 Mg Capsule.dr 60 Mg PO BID Lidoderm (Lidocaine) 700 Mg Adh..patch 1 Patch TP HS Aspir 81 (Aspirin) 81 Mg Tablet.dr 1 Tab PO DAILY Carbidopa-Levodopa 25-100 Tab (Carbidopa/Levodopa) 1 Each Tablet 3 Tab PO TIDWMEALS Nexium Capsule (Esomeprazole Magnesium) 40 Mg Capsule.dr 40 Mg PO DAILY Vitals/I & O Vital Sign - Last 24 Hours 03/23/19 03/23/19 03/23/19 03/23/19 19:40 19:45 20:45 21:39 Temp 98.3 98.3 Pulse 79 Resp 20 B/P (MAP) 133/75 (94) Pulse Ox 99 99 O2 Delivery Room Air Room Air Room Air Room Air 03/23/19 03/23/19 03/23/19 03/24/19 21:40 22:41 23:53 03:56 Temp 98.2 97.8 98.2 97.8 Pulse 79 72 80 Resp 18 18 B/P (MAP) 133/75 145/47 (79) 167/59 (95) Pulse Ox 100 98 O2 Delivery Room Air Room Air Room Air 03/24/19 03/24/19 03/24/19 03/24/19 07:00 07:28 08:20 09:06 Temp 98.5 98.5 Pulse 75 Resp 18 17 B/P (MAP) 192/70 (110) Pulse Ox 99 93 O2 Delivery Room Air Room Air Room Air Room Air 03/24/19 03/24/19 03/24/19 03/24/19 09:07 09:07 09:08 10:10 Pulse 75 75 75 Resp 16 B/P (MAP) 192/70 192/70 192/70 O2 Delivery Room Air 03/24/19 03/24/19 03/24/19 03/24/19 10:25 11:00 11:29 12:31 Temp 98.2 98.2 Pulse 71 76 76 Resp 18 B/P (MAP) 181/69 158/56 (90) 158/56 Pulse Ox 95 92 O2 Delivery Room Air Room Air 03/24/19 03/24/19 03/24/19 13:33 15:00 16:07 Temp 99.0 99.0 Pulse 71 Resp 17 18 B/P (MAP) 137/42 (73) Pulse Ox 94 92 O2 Delivery Room Air Room Air Room Air Intake and Output 03/23/19 03/23/19 03/24/19 15:00 23:00 07:00 Intake Total 180 ml 800 ml 350 ml Balance 180 ml 800 ml 350 ml DIANA GUZMAN MD Mar 24, 2019 17:43
[2019-03-24] MEDS: ATORVASTATIN CALCIUM 20 MG TABLET PO SCH (20:47)
[2019-03-24] MEDS: ZOLPIDEM 5 MG TABLET. PO SCH (20:47)
[2019-03-24] MEDS: PRIMIDONE 50 MG TABLET PO SCH (20:47)
[2019-03-24] MEDS: MIRTAZAPINE 15 MG TABLET PO SCH (20:47)
[2019-03-24] MEDS: DONEPEZIL HCL 10 MG TABLET. PO SCH (20:48)
[2019-03-24] MEDS: CLOPIDOGREL BISULFATE 75 MG TABLET PO SCH (20:48)
[2019-03-24] MEDS: LIDOCAINE (700MG/PATCH) PATCH. TP SCH (20:49)
[2019-03-25 03:50] VITALS: BP 126/44
[2019-03-25] MEDS: LEVOTHYROXINE 150 MCG TABLET PO SCH (06:29)
[2019-03-25] MEDS: ALBUTEROL SULFATE 2.5 MG/3 ML NEBU. NEB SCH ×4 (07:44→19:56)
[2019-03-25] MEDS: BUDESONIDE 0.5 MG/2 ML NEBU. NEB SCH ×2 (07:44→19:56)
[2019-03-25 07:52] VITALS: BP_SYST 151; BP_SYST 162; BP_SYST 176; BP_DIAS 67; BP_DIAS 75
[2019-03-25] MEDS: METHOCARBAMOL 750 MG TABLET PO SCH ×3 (10:04→19:48)
[2019-03-25] MEDS: busPIRone 5 MG TABLET. PO SCH ×3 (10:04→19:49)
[2019-03-25] MEDS: CARBIDOPA/LEVODOPA 25/100MG TABLET PO SCH ×3 (10:04→17:35)
[2019-03-25] MEDS: LORazepam 0.5 MG TABLET PO SCH ×3 (10:04→17:39)
[2019-03-25] MEDS: VITAMIN E 200 UNIT CAPSULE. PO SCH (10:04)
[2019-03-25] MEDS: ASPIRIN ENTERIC COATED 81 MG TABLET.DR. PO SCH (10:04)
[2019-03-25] MEDS: DULoxetine HCL 30 MG CAPSULE.DR PO SCH ×2 (10:04→19:48)
[2019-03-25] MEDS: LACTOBACILLUS RHAMNOSUS GG 1 CAPSULE. PO SCH ×2 (10:05→19:49)
[2019-03-25] MEDS: oxyCODONE IR 5 MG TABLET PO SCH ×3 (10:05→19:49)
[2019-03-25] MEDS: FERROUS SULFATE 325 MG TABLET. PO SCH (10:06)
[2019-03-25] MEDS: LISINOPRIL 20 MG TABLET PO SCH ×2 (10:06→19:51)
[2019-03-25] MEDS: GABAPENTIN 300 MG CAPSULE. PO SCH ×3 (10:06→19:50)
[2019-03-25] MEDS: MAGNESIUM OXIDE 400 MG TABLET PO SCH (10:06)
[2019-03-25] MEDS: hydrALAZINE 25 MG TABLET PO SCH ×2 (10:06→17:38)
[2019-03-25] MEDS: rOPINIRole 1 MG TABLET. PO SCH ×3 (10:06→19:50)
[2019-03-25] MEDS: FAMOTIDINE 20 MG TABLET. PO SCH (10:06)
[2019-03-25] MEDS: MELOXICAM 7.5 MG TABLET PO SCH (10:07)
[2019-03-25] MEDS: CHOLECALCIFEROL (VITAMIN D3) 5,000 UNIT CAPSULE PO SCH (10:07)
[2019-03-25] MEDS: glipiZIDE 5 MG TABLET PO SCH (10:07)
[2019-03-25] MEDS: CALCIUM POLYCARBOPHIL 625 MG TABLET PO SCH ×2 (10:07→19:57)
[2019-03-25] MEDS: POLYETHYLENE GLYCOL 3350 17 GM PACKET. PO SCH (10:09)
[2019-03-25] MEDS: SENNOSIDES/DOCUSATE 8.6/50MG TABLET. PO PRN (10:09)
[2019-03-25] MEDS: DICLOFENAC SODIUM 1% TOPICAL GEL 100GM TUBE. TP SCH ×2 (10:09→19:57)
--- NOTE | 2019-03-25 10:25 | RAD ---
EXAM: Brothers scale and color Doppler renal artery sonogram. HISTORY: Hypertension. TECHNIQUE: Brothers scale and color Doppler sonographic imaging of the kidneys and renal arteries with spectral waveform analysis was performed. COMPARISON: 11/05/2017. FINDINGS: The right kidney measures 9.9 cm [id number]. The left kidney measures 9.3 cm [id number]. There is no hydronephrosis. There is a 2.0 cm hypoechoic lesion within the mid zone of the right kidney. This appears to be a complicated cyst with internal septation. There is a partially exophytic more simple appearing cyst within the lateral mid zone of the left kidney measuring 2.1 cm. The renal parenchyma is echogenic. There is renal cortical lobulation. The bladder is unremarkable. The ureteral jets are both seen. The peak systolic velocity within the right renal artery is 124 cm/s. The peak systolic velocity within the left renal artery is 226 cm/s. There are normal renal artery to aorta velocity ratios. IMPRESSION: 1. Elevated peak systolic velocity within the left renal artery. Despite a normal renal artery to aorta velocity ratio, this suggests greater than 60% stenosis. 2. No Doppler evidence of greater than 60% stenosis involving the right renal artery. 3. 2.0 cm hypoechoic lesion within the mid zone of the right kidney, possibly a complex cyst with internal septation. The possibility of a solid lesion component is not excluded sonographically. There is also a suspected simple cyst within the left kidney measuring 2.1 cm. There is no correlate for these findings on the CT angiogram dated 11/05/2017. Renal protocol CT or MRI is recommended to confirm benignity. 4. Renal cortical lobulation, developmental or due to scarring. There is also increased right upper, convexity, a finding which can be seen with medical renal disease. Electronically signed by: Luda Garcia MD (03/25/2019 10:21 AM) [place] [id number]
--- NOTE | 2019-03-25 10:25 | RAD ---
EXAM: Brothers scale and color Doppler renal artery sonogram. HISTORY: Hypertension. TECHNIQUE: Brothers scale and color Doppler sonographic imaging of the kidneys and renal arteries with spectral waveform analysis was performed. COMPARISON: 11/05/2017. FINDINGS: The right kidney measures 9.9 cm [id number]. The left kidney measures 9.3 cm [id number]. There is no hydronephrosis. There is a 2.0 cm hypoechoic lesion within the mid zone of the right kidney. This appears to be a complicated cyst with internal septation. There is a partially exophytic more simple appearing cyst within the lateral mid zone of the left kidney measuring 2.1 cm. The renal parenchyma is echogenic. There is renal cortical lobulation. The bladder is unremarkable. The ureteral jets are both seen. The peak systolic velocity within the right renal artery is 124 cm/s. The peak systolic velocity within the left renal artery is 226 cm/s. There are normal renal artery to aorta velocity ratios. IMPRESSION: 1. Elevated peak systolic velocity within the left renal artery. Despite a normal renal artery to aorta velocity ratio, this suggests greater than 60% stenosis. 2. No Doppler evidence of greater than 60% stenosis involving the right renal artery. 3. 2.0 cm hypoechoic lesion within the mid zone of the right kidney, possibly a complex cyst with internal septation. The possibility of a solid lesion component is not excluded sonographically. There is also a suspected simple cyst within the left kidney measuring 2.1 cm. There is no correlate for these findings on the CT angiogram dated 11/05/2017. Renal protocol CT or MRI is recommended to confirm benignity. 4. Renal cortical lobulation, developmental or due to scarring. There is also increased right upper, convexity, a finding which can be seen with medical renal disease. Electronically signed by: Luda Garcia MD (03/25/2019 10:21 AM) [place] [id number]
--- NOTE | 2019-03-25 10:35 | PDOC ---
PROGRESS NOTES History of Present Illness History of Present Illness ASSESSMENT AND PLAN: IMPRESSION: No acute intracranial findings. on ct head Probable transient ischemic attack. 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 Despite a normal renal artery to aorta velocity ratio, this suggests greater than 60% stenosis. No Doppler evidence of greater than 60% stenosis involving the right renal artery. 2.0 cm hypoechoic lesion within the mid zone of the right kidney, possibly a complex cyst with internal septation. The possibility of a solid lesion component is not excluded sonographically. There is also a suspected simple cyst within the left kidney measuring 2.1 cm. There is no correlate for these findings on the CT angiogram dated 11/05/2017. Renal protocol CT or MRI is recommended to confirm benignity. Renal cortical lobulation, developmental or due to scarring. There is also increased right upper, convexity, a finding which can be seen with medical renal disease. admitted. consult Neurology. 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 PT, OT speech therapy. DVT prophylaxis. Full Code. home meds increase her aspirin. fluid restriction bmp today urinary na, random PT/OT Decrease glipizide to 2.5 mg po daily inc lisinopril to 20 mg po bid INC HYDRALIZINE TO 50MG PO BID DILCOLAX SUPP 10MG NOW NEPHROLOGY CONSULT 38 min pt exam, chart review, > 50% of time spent with exam, chart review, pt care coordination Vitals Vitals Vital Signs Date Time Temp Pulse Resp B/P (MAP) Pulse Ox O2 Delivery O2 Flow Rate FiO2 03/25/19 10:06 82 162/75 03/25/19 10:05 16 Room Air 03/25/19 07:52 98.2 98 98.2 Physical Exam Physical Exam PHYSICAL EXAMINATION: VITALS: Within normal limits and are stable. GENERAL: No apparent distress. Alert and oriented. HEENT: Head is normocephalic, atraumatic, pupils were equally round and reactive to light and accommodation. NECK: Supple, no JVD, no thyromegaly was noted. LUNGS: Clear to auscultation in all lung martinez without rhonchi or wheezing. HEART: RRR, S1, S2 present. Peripheral pulses intact, no obvious murmurs were noted. ABDOMEN: Soft, nontender. Positive bowel sounds no organomegaly, normal bowel sounds. EXTREMITIES: Without any cyanosis, clubbing, or edema. Pedal pulses intact, Homans sign is negative. NEUROLOGIC: confused, anxious calm PSYCHIATRIC: Normal affect, normal mood. Stable. SKIN: No ulcerations or rashes, good skin turgor, no jaundice. VASCULAR: Good capillary refill, neurovascular bundle appears to be intact. General: mild distress Heart: Regular rate Lungs: Clear Abdomen: Normal bowel sounds Extremities: No cyanosis, No edema Labs LABS EXAM: Brothers scale and color Doppler renal artery sonogram. HISTORY: Hypertension. TECHNIQUE: Brothers scale and color Doppler sonographic imaging of the kidneys and renal arteries with spectral waveform analysis was performed. COMPARISON: 11/05/2017. FINDINGS: The right kidney measures 9.9 cm [id number]. The left kidney measures 9.3 cm [id number]. There is no hydronephrosis. There is a 2.0 cm hypoechoic lesion within the mid zone of the right kidney. This appears to be a complicated cyst with internal septation. There is a partially exophytic more simple appearing cyst within the lateral mid zone of the left kidney measuring 2.1 cm. The renal parenchyma is echogenic. There is renal cortical lobulation. The bladder is unremarkable. The ureteral jets are both seen. The peak systolic velocity within the right renal artery is 124 cm/s. The peak systolic velocity within the left renal artery is 226 cm/s. There are normal renal artery to aorta velocity ratios. IMPRESSION: 1. Elevated peak systolic velocity within the left renal artery. Despite a normal renal artery to aorta velocity ratio, this suggests greater than 60% stenosis. 2. No Doppler evidence of greater than 60% stenosis involving the right renal artery. 3. 2.0 cm hypoechoic lesion within the mid zone of the right kidney, possibly a complex cyst with internal septation. The possibility of a solid lesion component is not excluded sonographically. There is also a suspected simple cyst within the left kidney measuring 2.1 cm. There is no correlate for these findings on the CT angiogram dated 11/05/2017. Renal protocol CT or MRI is recommended to confirm benignity. 4. Renal cortical lobulation, developmental or due to scarring. There is also increased right upper, convexity, a finding which can be seen with medical renal disease. Electronically signed by: Luda Garcia MD (03/25/2019 10:21 AM) [place] [id number] Laboratory Tests Test 03/24/19 11:25 03/24/19 12:40 03/24/19 16:48 03/24/19 21:08 Glucose (Fingerstick) 74 mg/dL (70-99) 73 mg/dL (70-99) 102 mg/dL (70-99) White Blood Count 4.6 x10^3/uL (4.0-11.0) Red Blood Count 3.81 x10^6/uL (3.50-5.40) Hemoglobin 11.8 g/dL (12.0-15.5) Hematocrit 35.1 % (36.0-47.0) Mean Corpuscular Volume 92 fL (79-100) Mean Corpuscular Hemoglobin 31 pg (25-35) Mean Corpuscular Hemoglobin Concent 34 g/dL (31-37) Red Cell Distribution Width 13.7 % (11.5-14.5) Platelet Count 342 x10^3/uL (140-400) Neutrophils (%) (Auto) 57 % (31-73) Lymphocytes (%) (Auto) 32 % (24-48) Monocytes (%) (Auto) 8 % (0-9) Eosinophils (%) (Auto) 3 % (0-3) Basophils (%) (Auto) 1 % (0-3) Neutrophils # (Auto) 2.6 x10^3/uL (1.8-7.7) Lymphocytes # (Auto) 1.5 x10^3/uL (1.0-4.8) Monocytes # (Auto) 0.4 x10^3/uL (0.0-1.1) Eosinophils # (Auto) 0.1 x10^3/uL (0.0-0.7) Basophils # (Auto) 0.0 x10^3/uL (0.0-0.2) Test 03/25/19 07:24 Glucose (Fingerstick) 120 mg/dL (70-99) Assessment and Plan Assessmemt and Plan Problems Medical Problems: (1) Acute focal neurological deficit, onset within 3-24 hours Status: Acute (2) TIA (transient ischemic attack) Status: Acute Comment Review of Relevant I have reviewed the following items dina (where applicable) has been applied. Labs Laboratory Tests Test 03/23/19 11:23 03/23/19 14:27 03/23/19 17:01 03/23/19 20:25 Glucose (Fingerstick) 78 mg/dL (70-99) 110 mg/dL (70-99) 112 mg/dL (70-99) 86 mg/dL (70-99) Test 03/24/19 07:46 03/24/19 11:25 03/24/19 12:40 03/24/19 16:48 Glucose (Fingerstick) 89 mg/dL (70-99) 74 mg/dL (70-99) 73 mg/dL (70-99) White Blood Count 4.6 x10^3/uL (4.0-11.0) Red Blood Count 3.81 x10^6/uL (3.50-5.40) Hemoglobin 11.8 g/dL (12.0-15.5) Hematocrit 35.1 % (36.0-47.0) Mean Corpuscular Volume 92 fL (79-100) Mean Corpuscular Hemoglobin 31 pg (25-35) Mean Corpuscular Hemoglobin Concent 34 g/dL (31-37) Red Cell Distribution Width 13.7 % (11.5-14.5) Platelet Count 342 x10^3/uL (140-400) Neutrophils (%) (Auto) 57 % (31-73) Lymphocytes (%) (Auto) 32 % (24-48) Monocytes (%) (Auto) 8 % (0-9) Eosinophils (%) (Auto) 3 % (0-3) Basophils (%) (Auto) 1 % (0-3) Neutrophils # (Auto) 2.6 x10^3/uL (1.8-7.7) Lymphocytes # (Auto) 1.5 x10^3/uL (1.0-4.8) Monocytes # (Auto) 0.4 x10^3/uL (0.0-1.1) Eosinophils # (Auto) 0.1 x10^3/uL (0.0-0.7) Basophils # (Auto) 0.0 x10^3/uL (0.0-0.2) Test 03/24/19 21:08 03/25/19 07:24 Glucose (Fingerstick) 102 mg/dL (70-99) 120 mg/dL (70-99) Laboratory Tests Test 03/24/19 11:25 03/24/19 12:40 03/24/19 16:48 03/24/19 21:08 Glucose (Fingerstick) 74 mg/dL (70-99) 73 mg/dL (70-99) 102 mg/dL (70-99) White Blood Count 4.6 x10^3/uL (4.0-11.0) Red Blood Count 3.81 x10^6/uL (3.50-5.40) Hemoglobin 11.8 g/dL (12.0-15.5) Hematocrit 35.1 % (36.0-47.0) Mean Corpuscular Volume 92 fL (79-100) Mean Corpuscular Hemoglobin 31 pg (25-35) Mean Corpuscular Hemoglobin Concent 34 g/dL (31-37) Red Cell Distribution Width 13.7 % (11.5-14.5) Platelet Count 342 x10^3/uL (140-400) Neutrophils (%) (Auto) 57 % (31-73) Lymphocytes (%) (Auto) 32 % (24-48) Monocytes (%) (Auto) 8 % (0-9) Eosinophils (%) (Auto) 3 % (0-3) Basophils (%) (Auto) 1 % (0-3) Neutrophils # (Auto) 2.6 x10^3/uL (1.8-7.7) Lymphocytes # (Auto) 1.5 x10^3/uL (1.0-4.8) Monocytes # (Auto) 0.4 x10^3/uL (0.0-1.1) Eosinophils # (Auto) 0.1 x10^3/uL (0.0-0.7) Basophils # (Auto) 0.0 x10^3/uL (0.0-0.2) Test 03/25/19 07:24 Glucose (Fingerstick) 120 mg/dL (70-99) Medications Current Medications Aspirin (Children'S Aspirin) 324 mg 1X STAT PO Last administered on 03/19/19at 17:50; Start 03/19/19 at 17:32; Stop 03/19/19 at 17:39; Status DC Iohexol (Omnipaque 350 Mg/ml) 60 ml 1X ONCE IV ; Start 03/19/19 at 17:45; Stop 03/19/19 at 17:46; Status DC Lorazepam (Ativan Inj) 1 mg 1X STAT IVP Last administered on 03/19/19 19:33; Start 03/19/19 at 18:51; Stop 03/19/19 at 18:56; Status DC Pharmacy Consult (C.diff Med Screen By Rx) 1 each 1X ONCE [facility] ; Start 03/20/19 at 09:00; Stop 03/20/19 at 09:01; Status DC Aspirin (Ecotrin) 81 mg DAILYWBKFT PO Last administered on 03/25/19 10:04; Start 03/20/19 at 08:00 Atorvastatin Calcium (Lipitor) 20 mg HS PO Last administered on 03/24/19 20:47; Start 03/19/19 at 23:00 Carbidopa/Levodopa (Sinemet 25/100) 3 tab TIDWMEALS PO Last administered on 03/25/19 10:04; Start 03/19/19 at 23:00 Clonidine HCl (Catapres) 0.1 mg PRN Q1HR PRN PO HYPERTENSION Last administered on 03/24/19 10:25; Start 03/19/19 at 22:00 Clopidogrel Bisulfate (Plavix) 75 mg HS PO Last administered on 03/24/19 20:48; Start 03/19/19 at 23:00 Diltiazem HCl (Cardizem 24hr Cd) 180 mg DAILY PO Last administered on 03/25/19 10:05; Start 03/20/19 at 09:00 Donepezil HCl (Aricept) 10 mg HS PO Last administered on 03/24/19 20:48; Start 03/19/19 at 23:00 Ferrous Sulfate (Feosol) 325 mg DAILY PO Last administered on 03/25/19 10:06; Start 03/20/19 at 09:00 Gabapentin (Neurontin) 300 mg TID PO Last administered on 03/25/19 10:06; Start 03/19/19 at 23:00 Glipizide (Glucotrol) 5 mg DAILY PO Last administered on 03/22/19 08:10; Start 03/20/19 at 09:00; Stop 03/22/19 at 13:43; Status DC Hydralazine HCl (Apresoline) 25 mg BIDWMEALS PO Last administered on 03/24/19 09:07; Start 03/19/19 at 23:00; Stop 03/24/19 at 11:55; Status DC Levothyroxine Sodium (Synthroid) 150 mcg DAILY06 PO Last administered on 03/25/19 06:29; Start 03/20/19 at 06:00 Lidocaine (Lidoderm) 1 patch HS TP Last administered on 03/24/19 20:49; Start 03/19/19 at 23:00 Lisinopril (Prinivil) 20 mg DAILY PO Last administered on 03/23/19 09:25; Start 03/20/19 at 09:00; Stop 03/23/19 at 11:36; Status DC Lorazepam (Ativan) 0.5 mg TIDWMEALS PO Last administered on 03/25/19 10:04; Start 03/19/19 at 23:00 Meloxicam (Mobic) 7.5 mg DAILY PO Last administered on 03/25/19 10:07; Start 03/20/19 at 09:00 Methocarbamol (Robaxin) 750 mg TID PO Last administered on 03/25/19 10:04; Start 03/19/19 at 23:00 Polyethylene Glycol (miraLAX PACKET) 17 gm DAILY PO Last administered on 03/25/19 10:09; Start 03/20/19 at 09:00 Primidone (Mysoline) 100 mg HS PO Last administered on 03/24/19 20:47; Start 03/19/19 at 23:00 Ropinirole HCl (Requip) 1 mg TID PO Last administered on 03/25/19 10:06; Start 03/19/19 at 23:00 Zolpidem Tartrate (Ambien) 5 mg HS PO Last administered on 03/24/19 20:47; Start 03/19/19 at 23:00 Non-Formulary Medication (Budesonide/ Formoterol Fumarate (Symbicort 80-4.5 Mcg Inhaler)) 2 puff BID IH ; Start 03/20/19 at 09:00; Status UNV Buspirone HCl (Buspar) 15 mg TID PO Last administered on 03/25/19 10:04; Start 03/19/19 at 23:00 Vitamin D (Vitamin D3) 5,000 unit DAILY PO Last administered on 03/25/19 10: 07; Start 03/20/19 at 09:00 Duloxetine HCl (Cymbalta) 60 mg BID PO Last administered on 03/25/19 10:04; Start 03/19/19 at 23:00 Pantoprazole Sodium (Protonix) 40 mg DAILYAC PO Last administered on 03/20/19 09:07; Start 03/20/19 at 07:30; Stop 03/20/19 at 09:57; Status DC Lactobacillus Rhamnosus (Culturelle) 1 cap DAILY PO Last administered on 03/20/19 09:07; Start 03/20/19 at 09:00; Stop 03/20/19 at 09:56; Status DC Magnesium Oxide (Magnesium Oxide) 400 mg DAILY PO Last administered on at 10:06; Start 03/20/19 at 09:00 Non-Formulary Medication (Melatonin ) 10 mg QHS PO ; Start 03/20/19 at 21:00; Status UNV Calcium Polycarbophil (Fibercon) 625 mg BID PO Last administered on 03/25/19 10:07; Start 03/20/19 at 09:00 Mirtazapine (Remeron) 45 mg HS PO Last administered on 03/24/19at 20:47; Start 03/19/19 at 23:00 Oxycodone HCl (Roxicodone) 10 mg TID PO Last administered on 03/25/19 10:05; Start 03/19/19 at 23:00 Vitamin E (Vitamin E.) 400 unit DAILY PO Last administered on 03/25/19 10:04; Start 03/20/19 at 09:00 Budesonide (Pulmicort) 0.5 mg RTBID NEB Last administered on 03/25/19 07:44; Start 03/20/19 at 08:00 Albuterol Sulfate (Ventolin Neb Soln) 2.5 mg RTQID NEB Last administered on 03/25/19 07:44; Start 03/20/19 at 08:00 Lactobacillus Rhamnosus (Culturelle) 1 cap BID PO Last administered on 03/25/19 10:05; Start 03/20/19 at 21:00 Famotidine (Pepcid) 20 mg DAILY PO Last administered on 03/25/19 10:06; Start 03/21/19 at 09:00 Magnesium Hydroxide (Milk Of Magnesia) 2,400 mg 1X ONCE PO Last administered on 03/20/19 13:20; Start 03/20/19 at 13:30; Stop 03/20/19 at 13:31; Status DC Diclofenac Sodium (Voltaren) 1 minnie BID TP Last administered on 03/25/19 10:09; Start 03/20/19 at 13:30 Levofloxacin (Levaquin) 750 mg 1X ONCE PO Last administered on 03/21/19 13:56; Start 03/21/19 at 14:00; Stop 03/21/19 at 14:01; Status DC Dextrose (Dextrose 50%-Water Syringe) 12.5 gm PRN Q15MIN PRN IV SEE COMMENTS Last administered on 03/21/19 17:09; Start 03/21/19 at 17:00 Ondansetron HCl (Zofran) 4 mg PRN Q6HRS PRN IVP NAUSEA/VOMITING Last administered on 03/22/19 09:45; Start 03/22/19 at 09:45 Acetaminophen (Tylenol) 650 mg PRN Q6HRS PRN PO PAIN Last administered on 03/22/19 09:46; Start 03/22/19 at 09:45 Glipizide (Glucotrol) 2.5 mg DAILY PO Last administered on 03/25/19 10:07; Start 03/23/19 at 09:00 Senna/Docusate Sodium (Senna Plus) 1 tab PRN BID PRN PO CONSTIPATION Last administered on 03/25/19 10:09; Start 03/22/19 at 14:45 Lisinopril (Prinivil) 20 mg BID PO Last administered on 03/25/19 10:06; Start 03/23/19 at 21:00 Lorazepam (Ativan) 0.5 mg 1X ONCE PO Last administered on 03/23/19 14:39; Start 03/23/19 at 14:45; Stop 03/23/19 at 14:46; Status DC Hydralazine HCl (Apresoline) 50 mg BIDWMEALS PO Last administered on 03/25/19at 10:06; Start 03/24/19 at 17:00 Hydralazine HCl (Apresoline) 25 mg ONCE ONCE PO Last administered on 03/24/19at 12:31; Start 03/24/19 at 12:00; Stop 03/24/19 at 12:01; Status DC Bisacodyl (Dulcolax Supp) 10 mg 1X ONCE NE ; Start 03/24/19 at 13:00; Stop 03/24/19 at 13:01; Status DC Bisacodyl (Dulcolax Supp) 10 mg PRN DAILY PRN NE CONSTIPATION; Start 03/24/19 at 13:00 Active Scripts Active Flector (Diclofenac Epolamine) 1 Each Patch.td12 1 Patch TP BID PRN 30 Days Symbicort 80-4.5 Mcg Inhaler (Budesonide/Formoterol Fumarate) 10.2 Gm Hfa.aer.ad 2 Puff IH BID 30 Days Reported Magnesium Oxide 400 Mg Tablet 400 Mg PO DAILY Atorvastatin Calcium 20 Mg Tablet 20 Mg PO HS Miralax (Polyethylene Glycol 3350) 17 Gm Powd.pack 1 Pkt PO DAILY Oxycodone Hcl Immed.release (Oxycodone Hcl) 10 Mg Tablet 10 Mg PO TID Clonidine Hcl 0.1 Mg Tablet 0.1 Mg PO PRN Q1HR PRN For SBP> 160 May repeat 1 hour after 1st dose if SBP is still >160 Mirtazapine 45 Mg Tablet 45 Mg PO HS Glipizide 5 Mg Tablet 5 Mg PO DAILY Hydralazine Hcl 25 Mg Tablet 1 Tab PO BIDWMEALS Lisinopril 20 Mg Tablet 1 Tab PO DAILY Robaxin-750 (Methocarbamol) 750 Mg Tablet 1 Tab PO TID Meloxicam 7.5 Mg Tablet 1 Tab PO DAILY Probiotic (Lactobacillus Acidophilus) 1 Each Capsule 1 Each PO DAILY Ambien (Zolpidem Tartrate) 5 Mg Tablet 5 Mg PO HS Ferrous Sulfate 325 Mg Tablet 1 Tab PO DAILY Lorazepam 0.5 Mg Tablet 0.5 Mg PO TIDWMEALS Clopidogrel (Clopidogrel Bisulfate) 75 Mg Tablet 75 Mg PO HS Vitamin E (Vitamin E Mixed) 400 Unit Capsule 400 Unit PO DAILY Fiber (Methylcellulose) 500 Mg Tablet 500 Mg PO BID Mysoline (Primidone) 50 Mg Tablet 100 Mg PO HS Vitamin D3 (Cholecalciferol (Vitamin D3)) 5,000 Unit Tablet 1 Tab PO DAILY Melatonin 3 Mg Tablet 10 Mg PO QHS Buspirone Hcl 15 Mg Tablet 1 Tab PO TID Gabapentin (Gabapentin) 300 Mg Capsule 300 Mg PO TID Cartia Xt (Diltiazem Hcl) 180 Mg Cap.er.24h 180 Mg PO DAILY Levothyroxine Sodium 150 Mcg Tablet 1 Tab PO DAILY07 Ropinirole Hcl 1 Mg Tablet 1 Mg PO TID Donepezil Hcl 10 Mg Tablet 1 Tab PO HS Duloxetine Hcl 60 Mg Capsule.dr 60 Mg PO BID Lidoderm (Lidocaine) 700 Mg Adh..patch 1 Patch TP HS Aspir 81 (Aspirin) 81 Mg Tablet.dr 1 Tab PO DAILY Carbidopa-Levodopa 25-100 Tab (Carbidopa/Levodopa) 1 Each Tablet 3 Tab PO TIDWMEALS Nexium Capsule (Esomeprazole Magnesium) 40 Mg Capsule.dr 40 Mg PO DAILY Vitals/I & O Vital Sign - Last 24 Hours 03/24/19 03/24/19 03/24/19 03/24/19 11:00 11:29 12:31 13:33 Temp 98.2 98.2 Pulse 76 76 Resp 18 17 B/P (MAP) 158/56 (90) 158/56 Pulse Ox 95 92 O2 Delivery Room Air Room Air Room Air 03/24/19 03/24/19 03/24/19 03/24/19 14:35 15:00 16:07 19:14 Temp 99.0 98.6 99.0 98.6 Pulse 71 72 Resp 16 18 16 B/P (MAP) 137/42 (73) 193/77 (115) Pulse Ox 94 92 94 O2 Delivery Room Air Room Air Room Air Room Air 03/24/19 03/24/19 03/24/19 03/24/19 19:15 20:00 20:23 20:45 Pulse 71 76 B/P (MAP) 137/42 143/58 (86) Pulse Ox 97 O2 Delivery Room Air Room Air 03/24/19 03/24/19 03/25/19 03/25/19 20:48 23:40 03:50 07:46 Temp 98.0 97.8 98.0 97.8 Pulse 76 80 75 Resp 16 16 B/P (MAP) 143/58 121/45 (70) 126/44 (71) Pulse Ox 93 92 96 O2 Delivery Room Air Room Air Room Air 03/25/19 03/25/19 03/25/19 03/25/19 07:47 07:52 07:52 07:52 Temp 98.2 98.2 Pulse 73 75 82 Resp 18 B/P (MAP) 151/75 (100) 176/67 (103) 162/75 (104) Pulse Ox 96 98 O2 Delivery Room Air Room Air 03/25/19 03/25/19 03/25/19 03/25/19 10:05 10:05 10:06 10:06 Pulse 82 82 82 Resp 16 B/P (MAP) 162/75 162/75 162/75 O2 Delivery Room Air Intake and Output 03/24/19 03/24/19 03/25/19 15:00 23:00 07:00 Intake Total 200 ml 200 ml 300 ml Balance 200 ml 200 ml 300 ml PITER BERMUDEZ MD Mar 25, 2019 10:35
--- NOTE | 2019-03-25 11:33 | PDOC ---
PROGRESS NOTES Assessment Problems Medical Problems: (1) Acute focal neurological deficit, onset within 3-24 hours Status: Acute (2) TIA (transient ischemic attack) Status: Acute Dysarthria, chronic intermittent. Right leg weakness, resolved. Metabolic encephalopathy. Epilepsy Anisocoria Parkinson's diagnosis, looks more like essential tremor on my exam AFib. CAD, s/p stent placement. HTN, Blood pressure still running high at times. HLD. Cognitive impairment. Pacemaker. Plan Continue Plavix 75 mg daily. Continue ASA 81 mg daily. Continue Sinemet at current dosing. OT/PT. FU with PCP. SNU Subjective No complaints Objective Vital Signs Date Time Temp Pulse Resp B/P (MAP) Pulse Ox O2 Delivery O2 Flow Rate FiO2 03/25/19 10:06 82 162/75 03/25/19 10:05 16 Room Air 03/25/19 07:52 98.2 98 98.2 Intake and Output 03/25/19 07:00 Intake Total 700 ml Balance 700 ml Intake Oral 700 ml Tube Feeding 0 ml # Voids 4 PHYSICAL EXAM Alert. Oriented to time, place and person. Left pupil 2-3 mm, right 1.5 mm. EOMI. CN: no focal findings. Muscle tone: normal. Muscle strength: 4/5 DTR: 2+ Plantar reflex: flexor Gait: not examined in bed. Sensory exam: no abnormal findings. No cerebellar signs elicited. Postural tremor, no resting tremor Review of Relevant I have reviewed the following items dina (where applicable) has been applied. Labs Laboratory Tests Test 03/23/19 14:27 03/23/19 17:01 03/23/19 20:25 03/24/19 07:46 Glucose (Fingerstick) 110 mg/dL (70-99) 112 mg/dL (70-99) 86 mg/dL (70-99) 89 mg/dL (70-99) Test 03/24/19 11:25 03/24/19 12:40 03/24/19 16:48 03/24/19 21:08 Glucose (Fingerstick) 74 mg/dL (70-99) 73 mg/dL (70-99) 102 mg/dL (70-99) White Blood Count 4.6 x10^3/uL (4.0-11.0) Red Blood Count 3.81 x10^6/uL (3.50-5.40) Hemoglobin 11.8 g/dL (12.0-15.5) Hematocrit 35.1 % (36.0-47.0) Mean Corpuscular Volume 92 fL (79-100) Mean Corpuscular Hemoglobin 31 pg (25-35) Mean Corpuscular Hemoglobin Concent 34 g/dL (31-37) Red Cell Distribution Width 13.7 % (11.5-14.5) Platelet Count 342 x10^3/uL (140-400) Neutrophils (%) (Auto) 57 % (31-73) Lymphocytes (%) (Auto) 32 % (24-48) Monocytes (%) (Auto) 8 % (0-9) Eosinophils (%) (Auto) 3 % (0-3) Basophils (%) (Auto) 1 % (0-3) Neutrophils # (Auto) 2.6 x10^3/uL (1.8-7.7) Lymphocytes # (Auto) 1.5 x10^3/uL (1.0-4.8) Monocytes # (Auto) 0.4 x10^3/uL (0.0-1.1) Eosinophils # (Auto) 0.1 x10^3/uL (0.0-0.7) Basophils # (Auto) 0.0 x10^3/uL (0.0-0.2) Test 03/25/19 07:24 Glucose (Fingerstick) 120 mg/dL (70-99) Laboratory Tests Test 03/24/19 12:40 03/24/19 16:48 03/24/19 21:08 03/25/19 07:24 White Blood Count 4.6 x10^3/uL (4.0-11.0) Red Blood Count 3.81 x10^6/uL (3.50-5.40) Hemoglobin 11.8 g/dL (12.0-15.5) Hematocrit 35.1 % (36.0-47.0) Mean Corpuscular Volume 92 fL (79-100) Mean Corpuscular Hemoglobin 31 pg (25-35) Mean Corpuscular Hemoglobin Concent 34 g/dL (31-37) Red Cell Distribution Width 13.7 % (11.5-14.5) Platelet Count 342 x10^3/uL (140-400) Neutrophils (%) (Auto) 57 % (31-73) Lymphocytes (%) (Auto) 32 % (24-48) Monocytes (%) (Auto) 8 % (0-9) Eosinophils (%) (Auto) 3 % (0-3) Basophils (%) (Auto) 1 % (0-3) Neutrophils # (Auto) 2.6 x10^3/uL (1.8-7.7) Lymphocytes # (Auto) 1.5 x10^3/uL (1.0-4.8) Monocytes # (Auto) 0.4 x10^3/uL (0.0-1.1) Eosinophils # (Auto) 0.1 x10^3/uL (0.0-0.7) Basophils # (Auto) 0.0 x10^3/uL (0.0-0.2) Glucose (Fingerstick) 73 mg/dL (70-99) 102 mg/dL (70-99) 120 mg/dL (70-99) Medications Current Medications Aspirin (Children'S Aspirin) 324 mg 1X STAT PO Last administered on 03/19/19at 17:50; Start 03/19/19 at 17:32; Stop 03/19/19 at 17:39; Status DC Iohexol (Omnipaque 350 Mg/ml) 60 ml 1X ONCE IV ; Start 03/19/19 at 17:45; Stop 03/19/19 at 17:46; Status DC Lorazepam (Ativan Inj) 1 mg 1X STAT IVP Last administered on 03/19/19at 19:33; Start 03/19/19 at 18:51; Stop 03/19/19 at 18:56; Status DC Pharmacy Consult (C.diff Med Screen By Rx) 1 each 1X ONCE [facility] ; Start 03/20/19 at 09:00; Stop 03/20/19 at 09:01; Status DC Aspirin (Ecotrin) 81 mg DAILYWBKFT PO Last administered on 03/25/19at 10:04; Start 03/20/19 at 08:00 Atorvastatin Calcium (Lipitor) 20 mg HS PO Last administered on 03/24/19at 20:47; Start 03/19/19 at 23:00 Carbidopa/Levodopa (Sinemet 25/100) 3 tab TIDWMEALS PO Last administered on 03/25/19 10:04; Start 03/19/19 at 23:00 Clonidine HCl (Catapres) 0.1 mg PRN Q1HR PRN PO HYPERTENSION Last administered on 03/24/19 10:25; Start 03/19/19 at 22:00 Clopidogrel Bisulfate (Plavix) 75 mg HS PO Last administered on 03/24/19 20:48; Start 03/19/19 at 23:00 Diltiazem HCl (Cardizem 24hr Cd) 180 mg DAILY PO Last administered on 03/25/19 10:05; Start 03/20/19 at 09:00 Donepezil HCl (Aricept) 10 mg HS PO Last administered on 03/24/19 20:48; Start 03/19/19 at 23:00 Ferrous Sulfate (Feosol) 325 mg DAILY PO Last administered on 03/25/19 10:06; Start 03/20/19 at 09:00 Gabapentin (Neurontin) 300 mg TID PO Last administered on 03/25/19 10:06; Start 03/19/19 at 23:00 Glipizide (Glucotrol) 5 mg DAILY PO Last administered on 03/22/19 08:10; Start 03/20/19 at 09:00; Stop 03/22/19 at 13:43; Status DC Hydralazine HCl (Apresoline) 25 mg BIDWMEALS PO Last administered on 03/24/19 09:07; Start 03/19/19 at 23:00; Stop 03/24/19 at 11:55; Status DC Levothyroxine Sodium (Synthroid) 150 mcg DAILY06 PO Last administered on 03/25/19 06:29; Start 03/20/19 at 06:00 Lidocaine (Lidoderm) 1 patch HS TP Last administered on 03/24/19 20:49; Start 03/19/19 at 23:00 Lisinopril (Prinivil) 20 mg DAILY PO Last administered on 03/23/19 09:25; Start 03/20/19 at 09:00; Stop 03/23/19 at 11:36; Status DC Lorazepam (Ativan) 0.5 mg TIDWMEALS PO Last administered on 03/25/19 10:04; Start 03/19/19 at 23:00 Meloxicam (Mobic) 7.5 mg DAILY PO Last administered on 03/25/19 10:07; Start 03/20/19 at 09:00 Methocarbamol (Robaxin) 750 mg TID PO Last administered on 03/25/19 10:04; Start 03/19/19 at 23:00 Polyethylene Glycol (miraLAX PACKET) 17 gm DAILY PO Last administered on 03/25/19 10:09; Start 03/20/19 at 09:00 Primidone (Mysoline) 100 mg HS PO Last administered on 03/24/19 20:47; Start 03/19/19 at 23:00 Ropinirole HCl (Requip) 1 mg TID PO Last administered on 03/25/19 10:06; Start 03/19/19 at 23:00 Zolpidem Tartrate (Ambien) 5 mg HS PO Last administered on 03/24/19 20:47; Start 03/19/19 at 23:00 Non-Formulary Medication (Budesonide/ Formoterol Fumarate (Symbicort 80-4.5 Mcg Inhaler)) 2 puff BID IH ; Start 03/20/19 at 09:00; Status UNV Buspirone HCl (Buspar) 15 mg TID PO Last administered on 03/25/19 10:04; Start 03/19/19 at 23:00 Vitamin D (Vitamin D3) 5,000 unit DAILY PO Last administered on 03/25/19 10:07; Start 03/20/19 at 09:00 Duloxetine HCl (Cymbalta) 60 mg BID PO Last administered on 03/25/19 10:04; Start 03/19/19 at 23:00 Pantoprazole Sodium (Protonix) 40 mg DAILYAC PO Last administered on 03/20/19 09:07; Start 03/20/19 at 07:30; Stop 03/20/19 at 09:57; Status DC Lactobacillus Rhamnosus (Culturelle) 1 cap DAILY PO Last administered on 03/20/19 09:07; Start 03/20/19 at 09:00; Stop 03/20/19 at 09:56; Status DC Magnesium Oxide (Magnesium Oxide) 400 mg DAILY PO Last administered on 03/25/19 10:06; Start 03/20/19 at 09:00 Non-Formulary Medication (Melatonin ) 10 mg QHS PO ; Start 03/20/19 at 21:00; Status UNV Calcium Polycarbophil (Fibercon) 625 mg BID PO Last administered on 03/25/19 10:07; Start 03/20/19 at 09:00 Mirtazapine (Remeron) 45 mg HS PO Last administered on 03/24/19 20:47; Start 03/19/19 at 23:00 Oxycodone HCl (Roxicodone) 10 mg TID PO Last administered on 03/25/19 10:05; Start 03/19/19 at 23:00 Vitamin E (Vitamin E.) 400 unit DAILY PO Last administered on 03/25/19 10:04; Start 03/20/19 at 09:00 Budesonide (Pulmicort) 0.5 mg RTBID NEB Last administered on 03/25/19 07:44; Start 03/20/19 at 08:00 Albuterol Sulfate (Ventolin Neb Soln) 2.5 mg RTQID NEB Last administered on 03/25/19 07:44; Start 03/20/19 at 08:00 Lactobacillus Rhamnosus (Culturelle) 1 cap BID PO Last administered on 03/25/19 10:05; Start 03/20/19 at 21:00 Famotidine (Pepcid) 20 mg DAILY PO Last administered on 03/25/19 10:06; Start 03/21/19 at 09:00 Magnesium Hydroxide (Milk Of Magnesia) 2,400 mg 1X ONCE PO Last administered on 03/20/19 13:20; Start 03/20/19 at 13:30; Stop 03/20/19 at 13:31; Status DC Diclofenac Sodium (Voltaren) 1 minnie BID TP Last administered on 03/25/19 10:09; Start 03/20/19 at 13:30 Levofloxacin (Levaquin) 750 mg 1X ONCE PO Last administered on 03/21/19 13:56; Start 03/21/19 at 14:00; Stop 03/21/19 at 14:01; Status DC Dextrose (Dextrose 50%-Water Syringe) 12.5 gm PRN Q15MIN PRN IV SEE COMMENTS Last administered on 03/21/19at 17:09; Start 03/21/19 at 17:00 Ondansetron HCl (Zofran) 4 mg PRN Q6HRS PRN IVP NAUSEA/VOMITING Last administered on 03/22/19 09:45; Start 03/22/19 at 09:45 Acetaminophen (Tylenol) 650 mg PRN Q6HRS PRN PO PAIN Last administered on 03/22/19 09:46; Start 03/22/19 at 09:45 Glipizide (Glucotrol) 2.5 mg DAILY PO Last administered on 03/25/19at 10:07; Start 03/23/19 at 09:00 Senna/Docusate Sodium (Senna Plus) 1 tab PRN BID PRN PO CONSTIPATION Last administered on 03/25/19 10:09; Start 03/22/19 at 14:45 Lisinopril (Prinivil) 20 mg BID PO Last administered on 03/25/19 10:06; Start 03/23/19 at 21:00 Lorazepam (Ativan) 0.5 mg 1X ONCE PO Last administered on 03/23/19at 14:39; Start 03/23/19 at 14:45; Stop 03/23/19 at 14:46; Status DC Hydralazine HCl (Apresoline) 50 mg BIDWMEALS PO Last administered on 03/25/19 10:06; Start 03/24/19 at 17:00 Hydralazine HCl (Apresoline) 25 mg ONCE ONCE PO Last administered on 03/24/19 12:31; Start 03/24/19 at 12:00; Stop 03/24/19 at 12:01; Status DC Bisacodyl (Dulcolax Supp) 10 mg 1X ONCE MO ; Start 03/24/19 at 13:00; Stop 03/24/19 at 13:01; Status DC Bisacodyl (Dulcolax Supp) 10 mg PRN DAILY PRN MO CONSTIPATION; Start 03/24/19 at 13:00 Active Scripts Active Flector (Diclofenac Epolamine) 1 Each Patch.td12 1 Patch TP BID PRN 30 Days Symbicort 80-4.5 Mcg Inhaler (Budesonide/Formoterol Fumarate) 10.2 Gm Hfa.aer.ad 2 Puff IH BID 30 Days Reported Magnesium Oxide 400 Mg Tablet 400 Mg PO DAILY Atorvastatin Calcium 20 Mg Tablet 20 Mg PO HS Miralax (Polyethylene Glycol 3350) 17 Gm Powd.pack 1 Pkt PO DAILY Oxycodone Hcl Immed.release (Oxycodone Hcl) 10 Mg Tablet 10 Mg PO TID Clonidine Hcl 0.1 Mg Tablet 0.1 Mg PO PRN Q1HR PRN For SBP> 160 May repeat 1 hour after 1st dose if SBP is still >160 Mirtazapine 45 Mg Tablet 45 Mg PO HS Glipizide 5 Mg Tablet 5 Mg PO DAILY Hydralazine Hcl 25 Mg Tablet 1 Tab PO BIDWMEALS Lisinopril 20 Mg Tablet 1 Tab PO DAILY Robaxin-750 (Methocarbamol) 750 Mg Tablet 1 Tab PO TID Meloxicam 7.5 Mg Tablet 1 Tab PO DAILY Probiotic (Lactobacillus Acidophilus) 1 Each Capsule 1 Each PO DAILY Ambien (Zolpidem Tartrate) 5 Mg Tablet 5 Mg PO HS Ferrous Sulfate 325 Mg Tablet 1 Tab PO DAILY Lorazepam 0.5 Mg Tablet 0.5 Mg PO TIDWMEALS Clopidogrel (Clopidogrel Bisulfate) 75 Mg Tablet 75 Mg PO HS Vitamin E (Vitamin E Mixed) 400 Unit Capsule 400 Unit PO DAILY Fiber (Methylcellulose) 500 Mg Tablet 500 Mg PO BID Mysoline (Primidone) 50 Mg Tablet 100 Mg PO HS Vitamin D3 (Cholecalciferol (Vitamin D3)) 5,000 Unit Tablet 1 Tab PO DAILY Melatonin 3 Mg Tablet 10 Mg PO QHS Buspirone Hcl 15 Mg Tablet 1 Tab PO TID Gabapentin (Gabapentin) 300 Mg Capsule 300 Mg PO TID Cartia Xt (Diltiazem Hcl) 180 Mg Cap.er.24h 180 Mg PO DAILY Levothyroxine Sodium 150 Mcg Tablet 1 Tab PO DAILY07 Ropinirole Hcl 1 Mg Tablet 1 Mg PO TID Donepezil Hcl 10 Mg Tablet 1 Tab PO HS Duloxetine Hcl 60 Mg Capsule.dr 60 Mg PO BID Lidoderm (Lidocaine) 700 Mg Adh..patch 1 Patch TP HS Aspir 81 (Aspirin) 81 Mg Tablet.dr 1 Tab PO DAILY Carbidopa-Levodopa 25-100 Tab (Carbidopa/Levodopa) 1 Each Tablet 3 Tab PO TIDWMEALS Nexium Capsule (Esomeprazole Magnesium) 40 Mg Capsule.dr 40 Mg PO DAILY Vitals/I & O Vital Sign - Last 24 Hours 11/18/19 11/18/19 11/18/19 11/18/19 12:31 13:33 14:35 15:00 Temp 99.0 99.0 Pulse 76 71 Resp 17 16 18 B/P (MAP) 158/56 137/42 (73) Pulse Ox 94 O2 Delivery Room Air Room Air Room Air 03/24/19 03/24/19 03/24/19 03/24/19 16:07 19:14 19:15 20:00 Temp 98.6 98.6 Pulse 72 71 Resp 16 B/P (MAP) 193/77 (115) 137/42 Pulse Ox 92 94 O2 Delivery Room Air Room Air Room Air 03/24/19 03/24/19 03/24/19 03/24/19 20:23 20:45 20:48 23:40 Temp 98.0 98.0 Pulse 76 76 80 Resp 16 B/P (MAP) 143/58 (86) 143/58 121/45 (70) Pulse Ox 97 93 O2 Delivery Room Air Room Air 03/25/19 03/25/19 03/25/19 03/25/19 03:50 07:46 07:47 07:52 Temp 97.8 98.2 97.8 98.2 Pulse 75 73 Resp 16 18 B/P (MAP) 126/44 (71) 151/75 (100) Pulse Ox 92 96 96 98 O2 Delivery Room Air Room Air Room Air Room Air 03/25/19 03/25/19 03/25/19 03/25/19 07:52 07:52 10:05 10:05 Pulse 75 82 82 Resp 16 B/P (MAP) 176/67 (103) 162/75 (104) 162/75 O2 Delivery Room Air 03/25/19 03/25/19 10:06 10:06 Pulse 82 82 B/P (MAP) 162/75 162/75 Intake and Output 03/24/19 03/24/19 03/25/19 15:00 23:00 07:00 Intake Total 200 ml 200 ml 300 ml Balance 200 ml 200 ml 300 ml VANESSA LITTLEJOHN MD Mar 25, 2019 11:33
[2019-03-25 11:50] VITALS: BP 136/64
--- NOTE | 2019-03-25 13:30 | NUR ---
SW following pt. Pt is not discharging today and nephrology consulted for POSSIBLE RENAL LESION WITH RENAL ARTERY STENOSIS. Pt is current with [facility]: [phone], fax: [phone]. Discussed with Physician. CARLI will continue to follow. Addendum: 03/26/19 at 1038 by GENI BOYCE HH is confirmed by SWer.
[2019-03-25 13:56] LABS: ALBUMIN 3.3 g/dL (3.4-5.0); CALCIUM 8.7 mg/dL (8.5-10.1); CREATININE 1.1 mg/dL (0.6-1.0); GFR 48.7; PHOSPHORUS 4.9 mg/dL (2.6-4.7); POTASSIUM 4.7 mmol/L (3.5-5.1)
[2019-03-25 15:39] VITALS: BP 125/44
--- NOTE | 2019-03-25 18:24 | PDOC ---
PROGRESS NOTES Subjective Subjective Patient seen and examined The patient looks mildly better today. Objective Objective Vital Signs Date Time Temp Pulse Resp B/P (MAP) Pulse Ox O2 Delivery O2 Flow Rate FiO2 03/25/19 17:38 74 125/44 03/25/19 15:39 98.3 20 97 Room Air 98.3 Intake and Output 03/25/19 07:00 Intake Total 700 ml Balance 700 ml Intake Oral 700 ml Tube Feeding 0 ml # Voids 4 Physical Exam Abdomen: Normal bowel sounds Heart: Regular rate General: No acute distress Lungs: Clear to auscultation Assessment Assessment Problems Medical Problems: (1) Acute focal neurological deficit, onset within 3-24 hours Status: Acute (2) TIA (transient ischemic attack) Status: Acute 1. Hypertension; improving today. Possible left renal artery stenosis. Also a renal lesion was seen on ultrasound. Renal consult is pending. 2. Possible CVA with dysarthria, weakness. Neuro following 3. Metabolic Encephalopathy. Improved 4. C/o CVA with left sided weakness. Right LE weakness. 5. Right carotid artery stenosis: moderate per doppler 6. Hx of CV/and parkinsons/dementia 7. CAD; past stent to PLB, clinically stable 8. Hyperlipidemia 9. PAFIB; currently SR 10. PPM in situ: ([facility]) 11. factor V leiden deficiency Comment Review of Relevant I have reviewed the following items dina (where applicable) has been applied. Labs Laboratory Tests Test 03/23/19 20:25 03/24/19 07:46 03/24/19 11:25 03/24/19 12:40 Glucose (Fingerstick) 86 mg/dL (70-99) 89 mg/dL (70-99) 74 mg/dL (70-99) White Blood Count 4.6 x10^3/uL (4.0-11.0) Red Blood Count 3.81 x10^6/uL (3.50-5.40) Hemoglobin 11.8 g/dL (12.0-15.5) Hematocrit 35.1 % (36.0-47.0) Mean Corpuscular Volume 92 fL (79-100) Mean Corpuscular Hemoglobin 31 pg (25-35) Mean Corpuscular Hemoglobin Concent 34 g/dL (31-37) Red Cell Distribution Width 13.7 % (11.5-14.5) Platelet Count 342 x10^3/uL (140-400) Neutrophils (%) (Auto) 57 % (31-73) Lymphocytes (%) (Auto) 32 % (24-48) Monocytes (%) (Auto) 8 % (0-9) Eosinophils (%) (Auto) 3 % (0-3) Basophils (%) (Auto) 1 % (0-3) Neutrophils # (Auto) 2.6 x10^3/uL (1.8-7.7) Lymphocytes # (Auto) 1.5 x10^3/uL (1.0-4.8) Monocytes # (Auto) 0.4 x10^3/uL (0.0-1.1) Eosinophils # (Auto) 0.1 x10^3/uL (0.0-0.7) Basophils # (Auto) 0.0 x10^3/uL (0.0-0.2) Test 03/24/19 16:48 03/24/19 21:08 03/25/19 07:24 03/25/19 11:31 Glucose (Fingerstick) 73 mg/dL (70-99) 102 mg/dL (70-99) 120 mg/dL (70-99) 96 mg/dL (70-99) Test 03/25/19 13:30 Sodium Level 140 mmol/L (136-145) Potassium Level 4.7 mmol/L (3.5-5.1) Chloride Level 101 mmol/L (98-107) Carbon Dioxide Level 33 mmol/L (21-32) Anion Gap 6 (6-14) Blood Urea Nitrogen 26 mg/dL (7-20) Creatinine 1.1 mg/dL (0.6-1.0) Estimated GFR (Cockcroft-Gault) 48.7 Glucose Level 116 mg/dL (70-99) Calcium Level 8.7 mg/dL (8.5-10.1) Phosphorus Level 4.9 mg/dL (2.6-4.7) Albumin 3.3 g/dL (3.4-5.0) Laboratory Tests Test 03/24/19 21:08 03/25/19 07:24 03/25/19 11:31 03/25/19 13:30 Glucose (Fingerstick) 102 mg/dL (70-99) 120 mg/dL (70-99) 96 mg/dL (70-99) Sodium Level 140 mmol/L (136-145) Potassium Level 4.7 mmol/L (3.5-5.1) Chloride Level 101 mmol/L (98-107) Carbon Dioxide Level 33 mmol/L (21-32) Anion Gap 6 (6-14) Blood Urea Nitrogen 26 mg/dL (7-20) Creatinine 1.1 mg/dL (0.6-1.0) Estimated GFR (Cockcroft-Gault) 48.7 Glucose Level 116 mg/dL (70-99) Calcium Level 8.7 mg/dL (8.5-10.1) Phosphorus Level 4.9 mg/dL (2.6-4.7) Albumin 3.3 g/dL (3.4-5.0) Medications Current Medications Aspirin (Children'S Aspirin) 324 mg 1X STAT PO Last administered on 03/19/19at 17:50; Start 03/19/19 at 17:32; Stop 03/19/19 at 17:39; Status DC Iohexol (Omnipaque 350 Mg/ml) 60 ml 1X ONCE IV ; Start 03/19/19 at 17:45; Stop 03/19/19 at 17:46; Status DC Lorazepam (Ativan Inj) 1 mg 1X STAT IVP Last administered on 03/19/19at 19:33; Start 03/19/19 at 18:51; Stop 03/19/19 at 18:56; Status DC Pharmacy Consult (C.diff Med Screen By Rx) 1 each 1X ONCE [facility] ; Start 03/20/19 at 09:00; Stop 03/20/19 at 09:01; Status DC Aspirin (Ecotrin) 81 mg DAILYWBKFT PO Last administered on 03/25/19at 10:04; Start 03/20/19 at 08:00 Atorvastatin Calcium (Lipitor) 20 mg HS PO Last administered on 03/24/19 20:47; Start 03/19/19 at 23:00 Carbidopa/Levodopa (Sinemet 25/100) 3 tab TIDWMEALS PO Last administered on 03/25/19 17:35; Start 03/19/19 at 23:00 Clonidine HCl (Catapres) 0.1 mg PRN Q1HR PRN PO HYPERTENSION Last administered on 03/24/19at 10:25; Start 03/19/19 at 22:00 Clopidogrel Bisulfate (Plavix) 75 mg HS PO Last administered on 03/24/19 20:48; Start 03/19/19 at 23:00 Diltiazem HCl (Cardizem 24hr Cd) 180 mg DAILY PO Last administered on 03/25/19 10:05; Start 03/20/19 at 09:00 Donepezil HCl (Aricept) 10 mg HS PO Last administered on 03/24/19 20:48; Start 03/19/19 at 23:00 Ferrous Sulfate (Feosol) 325 mg DAILY PO Last administered on 03/25/19 10:06; Start 03/20/19 at 09:00 Gabapentin (Neurontin) 300 mg TID PO Last administered on 03/25/19 13:05; Start 03/19/19 at 23:00 Glipizide (Glucotrol) 5 mg DAILY PO Last administered on 03/22/19 08:10; Start 03/20/19 at 09:00; Stop 03/22/19 at 13:43; Status DC Hydralazine HCl (Apresoline) 25 mg BIDWMEALS PO Last administered on 03/24/19 09:07; Start 03/19/19 at 23:00; Stop 03/24/19 at 11:55; Status DC Levothyroxine Sodium (Synthroid) 150 mcg DAILY06 PO Last administered on 03/25/19 06:29; Start 03/20/19 at 06:00 Lidocaine (Lidoderm) 1 patch HS TP Last administered on 03/24/19 20:49; Start 03/19/19 at 23:00 Lisinopril (Prinivil) 20 mg DAILY PO Last administered on 03/23/19 09:25; Start 03/20/19 at 09:00; Stop 03/23/19 at 11:36; Status DC Lorazepam (Ativan) 0.5 mg TIDWMEALS PO Last administered on 03/25/19 17:39; Start 03/19/19 at 23:00 Meloxicam (Mobic) 7.5 mg DAILY PO Last administered on 03/25/19 10:07; Start 03/20/19 at 09:00 Methocarbamol (Robaxin) 750 mg TID PO Last administered on 03/25/19 13:06; Start 03/19/19 at 23:00 Polyethylene Glycol (miraLAX PACKET) 17 gm DAILY PO Last administered on 03/25/19 10:09; Start 03/20/19 at 09:00 Primidone (Mysoline) 100 mg HS PO Last administered on 03/24/19 20:47; Start 03/19/19 at 23:00 Ropinirole HCl (Requip) 1 mg TID PO Last administered on 03/25/19 13:07; Start 03/19/19 at 23:00 Zolpidem Tartrate (Ambien) 5 mg HS PO Last administered on 03/24/19 20:47; Start 03/19/19 at 23:00 Non-Formulary Medication (Budesonide/ Formoterol Fumarate (Symbicort 80-4.5 Mcg Inhaler)) 2 puff BID IH ; Start 03/20/19 at 09:00; Status UNV Buspirone HCl (Buspar) 15 mg TID PO Last administered on 03/25/19 13:06; Start 03/19/19 at 23:00 Vitamin D (Vitamin D3) 5,000 unit DAILY PO Last administered on 03/25/19 10:07; Start 03/20/19 at 09:00 Duloxetine HCl (Cymbalta) 60 mg BID PO Last administered on 03/25/19 10:04; Start 03/19/19 at 23:00 Pantoprazole Sodium (Protonix) 40 mg DAILYAC PO Last administered on 03/20/19 09:07; Start 03/20/19 at 07:30; Stop 03/20/19 at 09:57; Status DC Lactobacillus Rhamnosus (Culturelle) 1 cap DAILY PO Last administered on 03/20/19 09:07; Start 03/20/19 at 09:00; Stop 03/20/19 at 09:56; Status DC Magnesium Oxide (Magnesium Oxide) 400 mg DAILY PO Last administered on 03/25/19 10:06; Start 03/20/19 at 09:00 Non-Formulary Medication (Melatonin ) 10 mg QHS PO ; Start 03/20/19 at 21:00; Status UNV Calcium Polycarbophil (Fibercon) 625 mg BID PO Last administered on 03/25/19 10:07; Start 03/20/19 at 09:00 Mirtazapine (Remeron) 45 mg HS PO Last administered on 03/24/19 20:47; Start 03/19/19 at 23:00 Oxycodone HCl (Roxicodone) 10 mg TID PO Last administered on 03/25/19 13:06; Start 03/19/19 at 23:00 Vitamin E (Vitamin E.) 400 unit DAILY PO Last administered on 03/25/19 10:04; Start 03/20/19 at 09:00 Budesonide (Pulmicort) 0.5 mg RTBID NEB Last administered on 03/25/19 07:44; Start 03/20/19 at 08:00 Albuterol Sulfate (Ventolin Neb Soln) 2.5 mg RTQID NEB Last administered on 03/25/19 15:33; Start 03/20/19 at 08:00 Lactobacillus Rhamnosus (Culturelle) 1 cap BID PO Last administered on 03/25/19 10:05; Start 03/20/19 at 21:00 Famotidine (Pepcid) 20 mg DAILY PO Last administered on 03/25/19 10:06; Start 03/21/19 at 09:00 Magnesium Hydroxide (Milk Of Magnesia) 2,400 mg 1X ONCE PO Last administered on 03/20/19 13:20; Start 03/20/19 at 13:30; Stop 03/20/19 at 13:31; Status DC Diclofenac Sodium (Voltaren) 1 minnie BID TP Last administered on 03/25/19 10:09; Start 03/20/19 at 13:30 Levofloxacin (Levaquin) 750 mg 1X ONCE PO Last administered on 03/21/19 13:56; Start 03/21/19 at 14:00; Stop 03/21/19 at 14:01; Status DC Dextrose (Dextrose 50%-Water Syringe) 12.5 gm PRN Q15MIN PRN IV SEE COMMENTS Last administered on 03/21/19 17:09; Start 03/21/19 at 17:00 Ondansetron HCl (Zofran) 4 mg PRN Q6HRS PRN IVP NAUSEA/VOMITING Last administered on 03/22/19 09:45; Start 03/22/19 at 09:45 Acetaminophen (Tylenol) 650 mg PRN Q6HRS PRN PO PAIN Last administered on 03/22/19at 09:46; Start 03/22/19 at 09:45 Glipizide (Glucotrol) 2.5 mg DAILY PO Last administered on 03/25/19at 10:07; Start 03/23/19 at 09:00 Senna/Docusate Sodium (Senna Plus) 1 tab PRN BID PRN PO CONSTIPATION Last administered on 03/25/19at 10:09; Start 03/22/19 at 14:45 Lisinopril (Prinivil) 20 mg BID PO Last administered on 03/25/19at 10:06; Start 03/23/19 at 21:00 Lorazepam (Ativan) 0.5 mg 1X ONCE PO Last administered on 03/23/19at 14:39; Start 03/23/19 at 14:45; Stop 03/23/19 at 14:46; Status DC Hydralazine HCl (Apresoline) 50 mg BIDWMEALS PO Last administered on 03/25/19at 17:38; Start 03/24/19 at 17:00 Hydralazine HCl (Apresoline) 25 mg ONCE ONCE PO Last administered on 03/24/19at 12:31; Start 03/24/19 at 12:00; Stop 03/24/19 at 12:01; Status DC Bisacodyl (Dulcolax Supp) 10 mg 1X ONCE SC ; Start 03/24/19 at 13:00; Stop 03/24/19 at 13:01; Status DC Bisacodyl (Dulcolax Supp) 10 mg PRN DAILY PRN SC CONSTIPATION; Start 03/24/19 at 13:00 Active Scripts Active Flector (Diclofenac Epolamine) 1 Each Patch.td12 1 Patch TP BID PRN 30 Days Symbicort 80-4.5 Mcg Inhaler (Budesonide/Formoterol Fumarate) 10.2 Gm Hfa.aer.ad 2 Puff IH BID 30 Days Reported Magnesium Oxide 400 Mg Tablet 400 Mg PO DAILY Atorvastatin Calcium 20 Mg Tablet 20 Mg PO HS Miralax (Polyethylene Glycol 3350) 17 Gm Powd.pack 1 Pkt PO DAILY Oxycodone Hcl Immed.release (Oxycodone Hcl) 10 Mg Tablet 10 Mg PO TID Clonidine Hcl 0.1 Mg Tablet 0.1 Mg PO PRN Q1HR PRN For SBP> 160 May repeat 1 hour after 1st dose if SBP is still >160 Mirtazapine 45 Mg Tablet 45 Mg PO HS Glipizide 5 Mg Tablet 5 Mg PO DAILY Hydralazine Hcl 25 Mg Tablet 1 Tab PO BIDWMEALS Lisinopril 20 Mg Tablet 1 Tab PO DAILY Robaxin-750 (Methocarbamol) 750 Mg Tablet 1 Tab PO TID Meloxicam 7.5 Mg Tablet 1 Tab PO DAILY Probiotic (Lactobacillus Acidophilus) 1 Each Capsule 1 Each PO DAILY Ambien (Zolpidem Tartrate) 5 Mg Tablet 5 Mg PO HS Ferrous Sulfate 325 Mg Tablet 1 Tab PO DAILY Lorazepam 0.5 Mg Tablet 0.5 Mg PO TIDWMEALS Clopidogrel (Clopidogrel Bisulfate) 75 Mg Tablet 75 Mg PO HS Vitamin E (Vitamin E Mixed) 400 Unit Capsule 400 Unit PO DAILY Fiber (Methylcellulose) 500 Mg Tablet 500 Mg PO BID Mysoline (Primidone) 50 Mg Tablet 100 Mg PO HS Vitamin D3 (Cholecalciferol (Vitamin D3)) 5,000 Unit Tablet 1 Tab PO DAILY Melatonin 3 Mg Tablet 10 Mg PO QHS Buspirone Hcl 15 Mg Tablet 1 Tab PO TID Gabapentin (Gabapentin) 300 Mg Capsule 300 Mg PO TID Cartia Xt (Diltiazem Hcl) 180 Mg Cap.er.24h 180 Mg PO DAILY Levothyroxine Sodium 150 Mcg Tablet 1 Tab PO DAILY07 Ropinirole Hcl 1 Mg Tablet 1 Mg PO TID Donepezil Hcl 10 Mg Tablet 1 Tab PO HS Duloxetine Hcl 60 Mg Capsule.dr 60 Mg PO BID Lidoderm (Lidocaine) 700 Mg Adh..patch 1 Patch TP HS Aspir 81 (Aspirin) 81 Mg Tablet.dr 1 Tab PO DAILY Carbidopa-Levodopa 25-100 Tab (Carbidopa/Levodopa) 1 Each Tablet 3 Tab PO TIDWMEALS Nexium Capsule (Esomeprazole Magnesium) 40 Mg Capsule.dr 40 Mg PO DAILY Vitals/I & O Vital Sign - Last 24 Hours 03/24/19 03/24/19 03/24/19 03/24/19 19:14 19:15 20:00 20:23 Temp 98.6 98.6 Pulse 72 71 Resp 16 B/P (MAP) 193/77 (115) 137/42 Pulse Ox 94 97 O2 Delivery Room Air Room Air Room Air 03/24/19 03/24/19 03/24/19 03/25/19 20:45 20:48 23:40 03:50 Temp 98.0 97.8 98.0 97.8 Pulse 76 76 80 75 Resp 16 16 B/P (MAP) 143/58 (86) 143/58 121/45 (70) 126/44 (71) Pulse Ox 93 92 O2 Delivery Room Air Room Air 03/25/19 03/25/19 03/25/19 03/25/19 07:46 07:47 07:52 07:52 Temp 98.2 98.2 Pulse 73 75 Resp 18 B/P (MAP) 151/75 (100) 176/67 (103) Pulse Ox 96 96 98 O2 Delivery Room Air Room Air Room Air 03/25/19 03/25/19 03/25/19 03/25/19 07:52 10:05 10:05 10:06 Pulse 82 82 82 Resp 16 B/P (MAP) 162/75 (104) 162/75 162/75 O2 Delivery Room Air 03/25/19 03/25/19 03/25/19 03/25/19 10:06 11:38 11:50 13:06 Temp 98.8 98.8 Pulse 82 72 Resp 18 16 B/P (MAP) 162/75 136/64 (88) Pulse Ox 96 95 O2 Delivery Room Air Room Air Room Air 03/25/19 03/25/19 03/25/19 15:34 15:39 17:38 Temp 98.3 98.3 Pulse 74 74 Resp 20 B/P (MAP) 125/44 (71) 125/44 Pulse Ox 96 97 O2 Delivery Room Air Room Air Intake and Output 03/24/19 03/24/19 03/25/19 15:00 23:00 07:00 Intake Total 200 ml 200 ml 300 ml Balance 200 ml 200 ml 300 ml DIANA GUZMAN MD Mar 25, 2019 18:24
[2019-03-25 19:20] VITALS: BP 106/82
[2019-03-25] MEDS: LIDOCAINE (700MG/PATCH) PATCH. TP SCH (19:48)
[2019-03-25] MEDS: PRIMIDONE 50 MG TABLET PO SCH (19:48)
[2019-03-25] MEDS: ZOLPIDEM 5 MG TABLET. PO SCH (19:48)
[2019-03-25] MEDS: CLOPIDOGREL BISULFATE 75 MG TABLET PO SCH (19:49)
[2019-03-25] MEDS: MIRTAZAPINE 15 MG TABLET PO SCH (19:49)
[2019-03-25] MEDS: DONEPEZIL HCL 10 MG TABLET. PO SCH (19:50)
[2019-03-25] MEDS: ATORVASTATIN CALCIUM 20 MG TABLET PO SCH (19:51)
[2019-03-25 23:58] VITALS: BP 136/55
[2019-03-26 03:34] VITALS: BP_SYST 148; BP_SYST 158; BP_DIAS 50; BP_DIAS 51
[2019-03-26 07:00] VITALS: BP_SYST 154; BP_SYST 179; BP_SYST 182; BP_DIAS 58; BP_DIAS 67; BP_DIAS 70
[2019-03-26] MEDS: CARBIDOPA/LEVODOPA 25/100MG TABLET PO SCH ×3 (08:54→17:34)
[2019-03-26] MEDS: VITAMIN E 200 UNIT CAPSULE. PO SCH (08:54)
[2019-03-26] MEDS: LORazepam 0.5 MG TABLET PO SCH ×3 (08:54→17:34)
[2019-03-26] MEDS: LEVOTHYROXINE 150 MCG TABLET PO SCH (08:54)
[2019-03-26] MEDS: busPIRone 5 MG TABLET. PO SCH ×3 (08:54→21:30)
[2019-03-26] MEDS: hydrALAZINE 25 MG TABLET PO SCH (08:55)
[2019-03-26] MEDS: METHOCARBAMOL 750 MG TABLET PO SCH ×3 (08:55→21:35)
[2019-03-26] MEDS: FAMOTIDINE 20 MG TABLET. PO SCH (08:55)
[2019-03-26] MEDS: LACTOBACILLUS RHAMNOSUS GG 1 CAPSULE. PO SCH ×2 (08:55→21:31)
[2019-03-26] MEDS: CHOLECALCIFEROL (VITAMIN D3) 5,000 UNIT CAPSULE PO SCH (08:55)
[2019-03-26] MEDS: glipiZIDE 5 MG TABLET PO SCH (08:55)
[2019-03-26] MEDS: CALCIUM POLYCARBOPHIL 625 MG TABLET PO SCH ×2 (08:56→21:34)
[2019-03-26] MEDS: DULoxetine HCL 30 MG CAPSULE.DR PO SCH ×2 (08:56→21:31)
[2019-03-26] MEDS: ASPIRIN ENTERIC COATED 81 MG TABLET.DR. PO SCH (08:56)
[2019-03-26] MEDS: LISINOPRIL 20 MG TABLET PO SCH ×2 (08:56→21:33)
[2019-03-26] MEDS: MAGNESIUM OXIDE 400 MG TABLET PO SCH (08:56)
[2019-03-26] MEDS: GABAPENTIN 300 MG CAPSULE. PO SCH ×3 (08:56→21:33)
[2019-03-26] MEDS: oxyCODONE IR 5 MG TABLET PO SCH ×3 (08:56→21:33)
[2019-03-26] MEDS: FERROUS SULFATE 325 MG TABLET. PO SCH (08:56)
[2019-03-26] MEDS: ALBUTEROL SULFATE 2.5 MG/3 ML NEBU. NEB SCH ×4 (08:57→20:46)
[2019-03-26] MEDS: rOPINIRole 1 MG TABLET. PO SCH ×3 (08:57→21:35)
[2019-03-26] MEDS: POLYETHYLENE GLYCOL 3350 17 GM PACKET. PO SCH (08:57)
[2019-03-26] MEDS: BUDESONIDE 0.5 MG/2 ML NEBU. NEB SCH ×2 (08:57→20:46)
[2019-03-26] MEDS: MELOXICAM 7.5 MG TABLET PO SCH (08:57)
[2019-03-26] MEDS: DICLOFENAC SODIUM 1% TOPICAL GEL 100GM TUBE. TP SCH ×2 (08:58→21:36)
--- NOTE | 2019-03-26 10:10 | PDOC ---
PROGRESS NOTES Assessment Problems Medical Problems: (1) Acute focal neurological deficit, onset within 3-24 hours Status: Acute (2) TIA (transient ischemic attack) Status: Acute Dysarthria, chronic intermittent. Right leg weakness, resolved. Metabolic encephalopathy. Epilepsy Anisocoria Parkinson's diagnosis, looks more like essential tremor on my exam AFib. CAD, s/p stent placement. HTN, Blood pressure still running high at times. HLD. Cognitive impairment. Pacemaker. Renal lesion, left renal artery stenosis, nephrology consulted Plan Continue Plavix and aspirin Continue Sinemet, is also on primidone, donepezil, and ropinirole. OT/PT. FU with PCP. SNU Subjective No neurologic complaints Objective Vital Signs Date Time Temp Pulse Resp B/P (MAP) Pulse Ox O2 Delivery O2 Flow Rate FiO2 03/26/19 08:59 94 Room Air 03/26/19 08:57 77 192/77 03/26/19 08:56 17 03/26/19 07:00 98.6 98.6 Intake and Output 03/26/19 07:00 Intake Total 1270 ml Balance 1270 ml Intake Oral 1270 ml # Voids 3 PHYSICAL EXAM Alert. Oriented to time, place and person. Left pupil 2-3 mm, right 1.5 mm. EOMI. CN: no focal findings. Muscle tone: normal. Muscle strength: 4/5 DTR: 2+ Plantar reflex: flexor Gait: not examined in bed. Sensory exam: no abnormal findings. No cerebellar signs elicited. Postural tremor, no resting tremor Review of Relevant I have reviewed the following items dina (where applicable) has been applied. Labs Laboratory Tests Test 03/24/19 11:25 03/24/19 12:40 03/24/19 16:48 03/24/19 21:08 Glucose (Fingerstick) 74 mg/dL (70-99) 73 mg/dL (70-99) 102 mg/dL (70-99) White Blood Count 4.6 x10^3/uL (4.0-11.0) Red Blood Count 3.81 x10^6/uL (3.50-5.40) Hemoglobin 11.8 g/dL (12.0-15.5) Hematocrit 35.1 % (36.0-47.0) Mean Corpuscular Volume 92 fL (79-100) Mean Corpuscular Hemoglobin 31 pg (25-35) Mean Corpuscular Hemoglobin Concent 34 g/dL (31-37) Red Cell Distribution Width 13.7 % (11.5-14.5) Platelet Count 342 x10^3/uL (140-400) Neutrophils (%) (Auto) 57 % (31-73) Lymphocytes (%) (Auto) 32 % (24-48) Monocytes (%) (Auto) 8 % (0-9) Eosinophils (%) (Auto) 3 % (0-3) Basophils (%) (Auto) 1 % (0-3) Neutrophils # (Auto) 2.6 x10^3/uL (1.8-7.7) Lymphocytes # (Auto) 1.5 x10^3/uL (1.0-4.8) Monocytes # (Auto) 0.4 x10^3/uL (0.0-1.1) Eosinophils # (Auto) 0.1 x10^3/uL (0.0-0.7) Basophils # (Auto) 0.0 x10^3/uL (0.0-0.2) Test 03/25/19 07:24 03/25/19 11:31 03/25/19 13:30 03/25/19 16:55 Glucose (Fingerstick) 120 mg/dL (70-99) 96 mg/dL (70-99) 80 mg/dL (70-99) Sodium Level 140 mmol/L (136-145) Potassium Level 4.7 mmol/L (3.5-5.1) Chloride Level 101 mmol/L (98-107) Carbon Dioxide Level 33 mmol/L (21-32) Anion Gap 6 (6-14) Blood Urea Nitrogen 26 mg/dL (7-20) Creatinine 1.1 mg/dL (0.6-1.0) Estimated GFR (Cockcroft-Gault) 48.7 Glucose Level 116 mg/dL (70-99) Calcium Level 8.7 mg/dL (8.5-10.1) Phosphorus Level 4.9 mg/dL (2.6-4.7) Albumin 3.3 g/dL (3.4-5.0) Test 03/25/19 21:23 03/26/19 07:55 Glucose (Fingerstick) 109 mg/dL (70-99) 105 mg/dL (70-99) Laboratory Tests Test 03/25/19 11:31 03/25/19 13:30 03/25/19 16:55 03/25/19 21:23 Glucose (Fingerstick) 96 mg/dL (70-99) 80 mg/dL (70-99) 109 mg/dL (70-99) Sodium Level 140 mmol/L (136-145) Potassium Level 4.7 mmol/L (3.5-5.1) Chloride Level 101 mmol/L (98-107) Carbon Dioxide Level 33 mmol/L (21-32) Anion Gap 6 (6-14) Blood Urea Nitrogen 26 mg/dL (7-20) Creatinine 1.1 mg/dL (0.6-1.0) Estimated GFR (Cockcroft-Gault) 48.7 Glucose Level 116 mg/dL (70-99) Calcium Level 8.7 mg/dL (8.5-10.1) Phosphorus Level 4.9 mg/dL (2.6-4.7) Albumin 3.3 g/dL (3.4-5.0) Test 03/26/19 07:55 Glucose (Fingerstick) 105 mg/dL (70-99) Medications Current Medications Aspirin (Children'S Aspirin) 324 mg 1X STAT PO Last administered on 03/19/19at 17:50; Start 03/19/19 at 17:32; Stop 03/19/19 at 17:39; Status DC Iohexol (Omnipaque 350 Mg/ml) 60 ml 1X ONCE IV ; Start 03/19/19 at 17:45; Stop 03/19/19 at 17:46; Status DC Lorazepam (Ativan Inj) 1 mg 1X STAT IVP Last administered on 03/19/19at 19:33; Start 03/19/19 at 18:51; Stop 03/19/19 at 18:56; Status DC Pharmacy Consult (C.diff Med Screen By Rx) 1 each 1X ONCE [facility] ; Start 03/20/19 at 09:00; Stop 03/20/19 at 09:01; Status DC Aspirin (Ecotrin) 81 mg DAILYWBKFT PO Last administered on 03/26/19at 08:56; Start 03/20/19 at 08:00 Atorvastatin Calcium (Lipitor) 20 mg HS PO Last administered on 03/25/19 19:51; Start 03/19/19 at 23:00 Carbidopa/Levodopa (Sinemet 25/100) 3 tab TIDWMEALS PO Last administered on 03/26/19 08:54; Start 03/19/19 at 23:00 Clonidine HCl (Catapres) 0.1 mg PRN Q1HR PRN PO HYPERTENSION Last administered on 03/24/19 10:25; Start 03/19/19 at 22:00 Clopidogrel Bisulfate (Plavix) 75 mg HS PO Last administered on 03/25/19 19:49; Start 03/19/19 at 23:00 Diltiazem HCl (Cardizem 24hr Cd) 180 mg DAILY PO Last administered on 03/26/19 08:57; Start 03/20/19 at 09:00 Donepezil HCl (Aricept) 10 mg HS PO Last administered on 03/25/19 19:50; Start 03/19/19 at 23:00 Ferrous Sulfate (Feosol) 325 mg DAILY PO Last administered on 03/26/19 08:56; Start 03/20/19 at 09:00 Gabapentin (Neurontin) 300 mg TID PO Last administered on 03/26/19 08:56; Start 03/19/19 at 23:00 Glipizide (Glucotrol) 5 mg DAILY PO Last administered on 03/22/19 08:10; Start 03/20/19 at 09:00; Stop 03/22/19 at 13:43; Status DC Hydralazine HCl (Apresoline) 25 mg BIDWMEALS PO Last administered on 03/24/19 09:07; Start 03/19/19 at 23:00; Stop 03/24/19 at 11:55; Status DC Levothyroxine Sodium (Synthroid) 150 mcg DAILY06 PO Last administered on 03/26/19 08:54; Start 03/20/19 at 06:00 Lidocaine (Lidoderm) 1 patch HS TP Last administered on 03/25/19 19:48; Start 03/19/19 at 23:00 Lisinopril (Prinivil) 20 mg DAILY PO Last administered on 03/23/19 09:25; Start 03/20/19 at 09:00; Stop 03/23/19 at 11:36; Status DC Lorazepam (Ativan) 0.5 mg TIDWMEALS PO Last administered on 03/26/19 08:54; Start 03/19/19 at 23:00 Meloxicam (Mobic) 7.5 mg DAILY PO Last administered on 03/26/19 08:57; Start 03/20/19 at 09:00 Methocarbamol (Robaxin) 750 mg TID PO Last administered on 03/26/19 08:55; Start 03/19/19 at 23:00 Polyethylene Glycol (miraLAX PACKET) 17 gm DAILY PO Last administered on 03/26/19 08:57; Start 03/20/19 at 09:00 Primidone (Mysoline) 100 mg HS PO Last administered on 03/25/19 19:48; Start 03/19/19 at 23:00 Ropinirole HCl (Requip) 1 mg TID PO Last administered on 03/26/19 08:57; Start 03/19/19 at 23:00 Zolpidem Tartrate (Ambien) 5 mg HS PO Last administered on 03/25/19 19:48; Start 03/19/19 at 23:00 Non-Formulary Medication (Budesonide/ Formoterol Fumarate (Symbicort 80-4.5 Mcg Inhaler)) 2 puff BID IH ; Start 03/20/19 at 09:00; Status UNV Buspirone HCl (Buspar) 15 mg TID PO Last administered on 03/26/19 08:54; Start 03/19/19 at 23:00 Vitamin D (Vitamin D3) 5,000 unit DAILY PO Last administered on 03/26/19 08:55; Start 03/20/19 at 09:00 Duloxetine HCl (Cymbalta) 60 mg BID PO Last administered on 03/26/19 08:56; Start 03/19/19 at 23:00 Pantoprazole Sodium (Protonix) 40 mg DAILYAC PO Last administered on 03/20/19 09:07; Start 03/20/19 at 07:30; Stop 03/20/19 at 09:57; Status DC Lactobacillus Rhamnosus (Culturelle) 1 cap DAILY PO Last administered on 03/20/19 09:07; Start 03/20/19 at 09:00; Stop 03/20/19 at 09:56; Status DC Magnesium Oxide (Magnesium Oxide) 400 mg DAILY PO Last administered on 03/26/19 08:56; Start 03/20/19 at 09:00 Non-Formulary Medication (Melatonin ) 10 mg QHS PO ; Start 03/20/19 at 21:00; Status UNV Calcium Polycarbophil (Fibercon) 625 mg BID PO Last administered on 03/26/19 08:56; Start 03/20/19 at 09:00 Mirtazapine (Remeron) 45 mg HS PO Last administered on 03/25/19 19:49; Start 03/19/19 at 23:00 Oxycodone HCl (Roxicodone) 10 mg TID PO Last administered on 03/26/19 08:56; Start 03/19/19 at 23:00 Vitamin E (Vitamin E.) 400 unit DAILY PO Last administered on 03/26/19 08:54; Start 03/20/19 at 09:00 Budesonide (Pulmicort) 0.5 mg RTBID NEB Last administered on 03/26/19 08:57; Start 03/20/19 at 08:00 Albuterol Sulfate (Ventolin Neb Soln) 2.5 mg RTQID NEB Last administered on 03/26/19 08:57; Start 03/20/19 at 08:00 Lactobacillus Rhamnosus (Culturelle) 1 cap BID PO Last administered on 03/26/19 08:55; Start 03/20/19 at 21:00 Famotidine (Pepcid) 20 mg DAILY PO Last administered on 03/26/19 08:55; Start 03/21/19 at 09:00 Magnesium Hydroxide (Milk Of Magnesia) 2,400 mg 1X ONCE PO Last administered on 03/20/19 13:20; Start 03/20/19 at 13:30; Stop 03/20/19 at 13:31; Status DC Diclofenac Sodium (Voltaren) 1 minnie BID TP Last administered on 03/26/19 08:58; Start 03/20/19 at 13:30 Levofloxacin (Levaquin) 750 mg 1X ONCE PO Last administered on 03/21/19 13:56; Start 03/21/19 at 14:00; Stop 03/21/19 at 14:01; Status DC Dextrose (Dextrose 50%-Water Syringe) 12.5 gm PRN Q15MIN PRN IV SEE COMMENTS Last administered on 03/21/19 17:09; Start 03/21/19 at 17:00 Ondansetron HCl (Zofran) 4 mg PRN Q6HRS PRN IVP NAUSEA/VOMITING Last administered on 03/22/19at 09:45; Start 03/22/19 at 09:45 Acetaminophen (Tylenol) 650 mg PRN Q6HRS PRN PO PAIN Last administered on 03/22/19 09:46; Start 03/22/19 at 09:45 Glipizide (Glucotrol) 2.5 mg DAILY PO Last administered on 03/26/19 08:55; Start 03/23/19 at 09:00 Senna/Docusate Sodium (Senna Plus) 1 tab PRN BID PRN PO CONSTIPATION Last administered on 03/25/19 10:09; Start 03/22/19 at 14:45 Lisinopril (Prinivil) 20 mg BID PO Last administered on 03/26/19 08:56; Start 03/23/19 at 21:00 Lorazepam (Ativan) 0.5 mg 1X ONCE PO Last administered on 03/23/19at 14:39; Start 03/23/19 at 14:45; Stop 03/23/19 at 14:46; Status DC Hydralazine HCl (Apresoline) 50 mg BIDWMEALS PO Last administered on 03/26/19 08:55; Start 03/24/19 at 17:00 Hydralazine HCl (Apresoline) 25 mg ONCE ONCE PO Last administered on 03/24/19at 12:31; Start 03/24/19 at 12:00; Stop 03/24/19 at 12:01; Status DC Bisacodyl (Dulcolax Supp) 10 mg 1X ONCE ND ; Start 03/24/19 at 13:00; Stop 03/24/19 at 13:01; Status DC Bisacodyl (Dulcolax Supp) 10 mg PRN DAILY PRN ND CONSTIPATION; Start 03/24/19 at 13:00 Active Scripts Active Flector (Diclofenac Epolamine) 1 Each Patch.td12 1 Patch TP BID PRN 30 Days Symbicort 80-4.5 Mcg Inhaler (Budesonide/Formoterol Fumarate) 10.2 Gm Hfa.aer.ad 2 Puff IH BID 30 Days Reported Magnesium Oxide 400 Mg Tablet 400 Mg PO DAILY Atorvastatin Calcium 20 Mg Tablet 20 Mg PO HS Miralax (Polyethylene Glycol 3350) 17 Gm Powd.pack 1 Pkt PO DAILY Oxycodone Hcl Immed.release (Oxycodone Hcl) 10 Mg Tablet 10 Mg PO TID Clonidine Hcl 0.1 Mg Tablet 0.1 Mg PO PRN Q1HR PRN For SBP> 160 May repeat 1 hour after 1st dose if SBP is still >160 Mirtazapine 45 Mg Tablet 45 Mg PO HS Glipizide 5 Mg Tablet 5 Mg PO DAILY Hydralazine Hcl 25 Mg Tablet 1 Tab PO BIDWMEALS Lisinopril 20 Mg Tablet 1 Tab PO DAILY Robaxin-750 (Methocarbamol) 750 Mg Tablet 1 Tab PO TID Meloxicam 7.5 Mg Tablet 1 Tab PO DAILY Probiotic (Lactobacillus Acidophilus) 1 Each Capsule 1 Each PO DAILY Ambien (Zolpidem Tartrate) 5 Mg Tablet 5 Mg PO HS Ferrous Sulfate 325 Mg Tablet 1 Tab PO DAILY Lorazepam 0.5 Mg Tablet 0.5 Mg PO TIDWMEALS Clopidogrel (Clopidogrel Bisulfate) 75 Mg Tablet 75 Mg PO HS Vitamin E (Vitamin E Mixed) 400 Unit Capsule 400 Unit PO DAILY Fiber (Methylcellulose) 500 Mg Tablet 500 Mg PO BID Mysoline (Primidone) 50 Mg Tablet 100 Mg PO HS Vitamin D3 (Cholecalciferol (Vitamin D3)) 5,000 Unit Tablet 1 Tab PO DAILY Melatonin 3 Mg Tablet 10 Mg PO QHS Buspirone Hcl 15 Mg Tablet 1 Tab PO TID Gabapentin (Gabapentin) 300 Mg Capsule 300 Mg PO TID Cartia Xt (Diltiazem Hcl) 180 Mg Cap.er.24h 180 Mg PO DAILY Levothyroxine Sodium 150 Mcg Tablet 1 Tab PO DAILY07 Ropinirole Hcl 1 Mg Tablet 1 Mg PO TID Donepezil Hcl 10 Mg Tablet 1 Tab PO HS Duloxetine Hcl 60 Mg Capsule.dr 60 Mg PO BID Lidoderm (Lidocaine) 700 Mg Adh..patch 1 Patch TP HS Aspir 81 (Aspirin) 81 Mg Tablet.dr 1 Tab PO DAILY Carbidopa-Levodopa 25-100 Tab (Carbidopa/Levodopa) 1 Each Tablet 3 Tab PO TIDWMEALS Nexium Capsule (Esomeprazole Magnesium) 40 Mg Capsule.dr 40 Mg PO DAILY Vitals/I & O Vital Sign - Last 24 Hours 03/25/19 03/25/19 03/25/19 03/25/19 10:05 10:05 10:06 10:06 Pulse 82 82 82 Resp 16 B/P (MAP) 162/75 162/75 162/75 O2 Delivery Room Air 03/25/19 03/25/19 03/25/19 03/25/19 11:06 11:38 11:50 13:06 Temp 98.8 98.8 Pulse 72 Resp 16 18 16 B/P (MAP) 136/64 (88) Pulse Ox 96 95 O2 Delivery Room Air Room Air Room Air Room Air 03/25/19 03/25/19 03/25/19 03/25/19 14:10 15:34 15:39 17:38 Temp 98.3 98.3 Pulse 74 74 Resp 16 20 B/P (MAP) 125/44 (71) 125/44 Pulse Ox 96 97 O2 Delivery Room Air Room Air Room Air 03/25/19 03/25/19 03/25/19 03/25/19 19:00 19:20 19:49 19:51 Temp 98.4 98.4 Pulse 90 74 Resp 18 B/P (MAP) 106/82 (90) 125/44 Pulse Ox 98 O2 Delivery Room Air Room Air Room Air 03/25/19 03/25/19 03/26/19 03/26/19 19:56 23:58 03:34 07:00 Temp 98.5 98.0 98.6 98.5 98.0 98.6 Pulse 75 78 77 Resp 18 18 18 B/P (MAP) 136/55 (82) 158/51 (86) 182/67 (105) 148/50 (82) 179/58 (98) 148/50 (82) 154/70 (98) Pulse Ox 94 96 97 96 O2 Delivery Room Air Room Air Room Air Room Air 03/26/19 03/26/19 03/26/19 03/26/19 08:55 08:56 08:56 08:57 Pulse 77 77 77 Resp 17 B/P (MAP) 192/77 192/69 192/77 O2 Delivery Room Air 03/26/19 08:59 Pulse Ox 94 O2 Delivery Room Air Intake and Output 03/25/19 03/25/19 03/26/19 15:00 23:00 07:00 Intake Total 420 ml 500 ml 350 ml Balance 420 ml 500 ml 350 ml VANESSA LITTLEJOHN MD Mar 26, 2019 10:10
--- NOTE | 2019-03-26 10:28 | PDOC2 ---
CONSULT Date of Consult Date of Consult DATE: 03/26/19 TIME: 10:24 Reason for Consult Reason for Consult: " Possible renal lesion with CAM" Source Source: Caregiver, Chart review, Patient History of Present Illness Reason for Visit: Pt is a 74 yo CF admitted on 03/19 presented secondary to stroke-like symptoms, slurred speech around that time and started to drag her right foot and leaning against the wall. Reportedly history of old stroke with chronic left side weakness Denies any chest pain, palpitations, dizziness, diaphoresis, or nausea/vomiting. Reports blood pressure has been labile,hard to control for a long time intermittent. Not have been on ABHI-I in the past She used to follow with Dr. Stinson of our office for CKD 3 dced from clinic per pt's daughter due to stable renal function .She has never been on diuretics. Denies urinary complaints. No LED edema . Stats has been on Meloxicam for long time Past Medical History Cardiovascular: CAD, HTN CENTRAL NERVOUS SYSTEM: CVA GI: Constipation Psych: Anxiety, Other Musculoskeletal: low back pain Renal/: Urinary Incontinence Endocrine: Diabetes, Hypothyroidism Past Surgical History Past Surgical History: Cataract Removal, , Total knee replacement, Hysterectomy, Colon Resection, Other Family History Family History: Other (noncontributory ) Social History ALCOHOL: none Drugs: None Lives: with Family Domestic Violence: Neg Current Problem List Problem List Problems Medical Problems: (1) Acute focal neurological deficit, onset within 3-24 hours Status: Acute (2) TIA (transient ischemic attack) Status: Acute Current Medications Current Medications Current Medications Aspirin (Children'S Aspirin) 324 mg 1X STAT PO Last administered on 03/19/19at 17:50; Start 03/19/19 at 17:32; Stop 03/19/19 at 17:39; Status DC Iohexol (Omnipaque 350 Mg/ml) 60 ml 1X ONCE IV ; Start 03/19/19 at 17:45; Stop 03/19/19 at 17:46; Status DC Lorazepam (Ativan Inj) 1 mg 1X STAT IVP Last administered on 03/19/19at 19:33; Start 03/19/19 at 18:51; Stop 03/19/19 at 18:56; Status DC Pharmacy Consult (C.diff Med Screen By Rx) 1 each 1X ONCE [facility] ; Start 03/20/19 at 09:00; Stop 03/20/19 at 09:01; Status DC Aspirin (Ecotrin) 81 mg DAILYWBKFT PO Last administered on 03/26/19 08:56; Start 03/20/19 at 08:00 Atorvastatin Calcium (Lipitor) 20 mg HS PO Last administered on 03/25/19 19:51; Start 03/19/19 at 23:00 Carbidopa/Levodopa (Sinemet 25/100) 3 tab TIDWMEALS PO Last administered on 03/26/19 08:54; Start 03/19/19 at 23:00 Clonidine HCl (Catapres) 0.1 mg PRN Q1HR PRN PO HYPERTENSION Last administered on 03/24/19 10:25; Start 03/19/19 at 22:00 Clopidogrel Bisulfate (Plavix) 75 mg HS PO Last administered on 03/25/19 19:49; Start 03/19/19 at 23:00 Diltiazem HCl (Cardizem 24hr Cd) 180 mg DAILY PO Last administered on 03/26/19 08:57; Start 03/20/19 at 09:00 Donepezil HCl (Aricept) 10 mg HS PO Last administered on 03/25/19 19:50; Start 03/19/19 at 23:00 Ferrous Sulfate (Feosol) 325 mg DAILY PO Last administered on 03/26/19 08:56; Start 03/20/19 at 09:00 Gabapentin (Neurontin) 300 mg TID PO Last administered on 03/26/19 08:56; Start 03/19/19 at 23:00 Glipizide (Glucotrol) 5 mg DAILY PO Last administered on 03/22/19 08:10; Start 03/20/19 at 09:00; Stop 03/22/19 at 13:43; Status DC Hydralazine HCl (Apresoline) 25 mg BIDWMEALS PO Last administered on 03/24/19 09:07; Start 03/19/19 at 23:00; Stop 03/24/19 at 11:55; Status DC Levothyroxine Sodium (Synthroid) 150 mcg DAILY06 PO Last administered on 08:54; Start 03/20/19 at 06:00 Lidocaine (Lidoderm) 1 patch HS TP Last administered on 03/25/19 19:48; Start 03/19/19 at 23:00 Lisinopril (Prinivil) 20 mg DAILY PO Last administered on 03/23/19 09:25; Start 03/20/19 at 09:00; Stop 03/23/19 at 11:36; Status DC Lorazepam (Ativan) 0.5 mg TIDWMEALS PO Last administered on 03/26/19 08:54; Start 03/19/19 at 23:00 Meloxicam (Mobic) 7.5 mg DAILY PO Last administered on 03/26/19 08:57; Start 03/20/19 at 09:00 Methocarbamol (Robaxin) 750 mg TID PO Last administered on 03/26/19 08:55; Start 03/19/19 at 23:00 Polyethylene Glycol (miraLAX PACKET) 17 gm DAILY PO Last administered on 03/26/19 08:57; Start 03/20/19 at 09:00 Primidone (Mysoline) 100 mg HS PO Last administered on 03/25/19 19:48; Start 03/19/19 at 23:00 Ropinirole HCl (Requip) 1 mg TID PO Last administered on 03/26/19 08:57; Start 03/19/19 at 23:00 Zolpidem Tartrate (Ambien) 5 mg HS PO Last administered on 03/25/19 19:48; Start 03/19/19 at 23:00 Non-Formulary Medication (Budesonide/ Formoterol Fumarate (Symbicort 80-4.5 Mcg Inhaler)) 2 puff BID IH ; Start 03/20/19 at 09:00; Status UNV Buspirone HCl (Buspar) 15 mg TID PO Last administered on 03/26/19 08:54; Start 03/19/19 at 23:00 Vitamin D (Vitamin D3) 5,000 unit DAILY PO Last administered on 03/26/19 08:55; Start 03/20/19 at 09:00 Duloxetine HCl (Cymbalta) 60 mg BID PO Last administered on 03/26/19 08:56; Start 03/19/19 at 23:00 Pantoprazole Sodium (Protonix) 40 mg DAILYAC PO Last administered on 11/14/19at 09:07; Start 03/20/19 at 07:30; Stop 03/20/19 at 09:57; Status DC Lactobacillus Rhamnosus (Culturelle) 1 cap DAILY PO Last administered on 03/20/19at 09:07; Start 03/20/19 at 09:00; Stop 03/20/19 at 09:56; Status DC Magnesium Oxide (Magnesium Oxide) 400 mg DAILY PO Last administered on 03/26/19 08:56; Start 03/20/19 at 09:00 Non-Formulary Medication (Melatonin ) 10 mg QHS PO ; Start 03/20/19 at 21:00; Status UNV Calcium Polycarbophil (Fibercon) 625 mg BID PO Last administered on 03/26/19 08:56; Start 03/20/19 at 09:00 Mirtazapine (Remeron) 45 mg HS PO Last administered on 03/25/19 19:49; Start 03/19/19 at 23:00 Oxycodone HCl (Roxicodone) 10 mg TID PO Last administered on 03/26/19 08:56; Start 03/19/19 at 23:00 Vitamin E (Vitamin E.) 400 unit DAILY PO Last administered on 03/26/19 08:54; Start 03/20/19 at 09:00 Budesonide (Pulmicort) 0.5 mg RTBID NEB Last administered on 03/26/19 08:57; Start 03/20/19 at 08:00 Albuterol Sulfate (Ventolin Neb Soln) 2.5 mg RTQID NEB Last administered on 03/26/19 08:57; Start 03/20/19 at 08:00 Lactobacillus Rhamnosus (Culturelle) 1 cap BID PO Last administered on 03/26/19 08:55; Start 03/20/19 at 21:00 Famotidine (Pepcid) 20 mg DAILY PO Last administered on 03/26/19 08:55; Start 03/21/19 at 09:00 Magnesium Hydroxide (Milk Of Magnesia) 2,400 mg 1X ONCE PO Last administered on 03/20/19 13:20; Start 03/20/19 at 13:30; Stop 03/20/19 at 13:31; Status DC Diclofenac Sodium (Voltaren) 1 minnie BID TP Last administered on 03/26/19at 0 8:58; Start 03/20/19 at 13:30 Levofloxacin (Levaquin) 750 mg 1X ONCE PO Last administered on 03/21/19 13:56; Start 03/21/19 at 14:00; Stop 03/21/19 at 14:01; Status DC Dextrose (Dextrose 50%-Water Syringe) 12.5 gm PRN Q15MIN PRN IV SEE COMMENTS La st administered on 03/21/19at 17:09; Start 03/21/19 at 17:00 Ondansetron HCl (Zofran) 4 mg PRN Q6HRS PRN IVP NAUSEA/VOMITING Last administered on 03/22/19 09:45; Start 03/22/19 at 09:45 Acetaminophen (Tylenol) 650 mg PRN Q6HRS PRN PO PAIN Last administered on 03/22/19 09:46; Start 03/22/19 at 09:45 Glipizide (Glucotrol) 2.5 mg DAILY PO Last administered on 03/26/19at 08:55; Start 03/23/19 at 09:00 Senna/Docusate Sodium (Senna Plus) 1 tab PRN BID PRN PO CONSTIPATION Last administered on 03/25/19 10:09; Start 03/22/19 at 14:45 Lisinopril (Prinivil) 20 mg BID PO Last administered on 03/26/19 08:56; Start 03/23/19 at 21:00 Lorazepam (Ativan) 0.5 mg 1X ONCE PO Last administered on 03/23/19at 14:39; Start 03/23/19 at 14:45; Stop 03/23/19 at 14:46; Status DC Hydralazine HCl (Apresoline) 50 mg BIDWMEALS PO Last administered on 03/26/19 08:55; Start 03/24/19 at 17:00 Hydralazine HCl (Apresoline) 25 mg ONCE ONCE PO Last administered on 03/24/19at 12:31; Start 03/24/19 at 12:00; Stop 03/24/19 at 12:01; Status DC Bisacodyl (Dulcolax Supp) 10 mg 1X ONCE CO ; Start 03/24/19 at 13:00; Stop 03/24/19 at 13:01; Status DC Bisacodyl (Dulcolax Supp) 10 mg PRN DAILY PRN CO CONSTIPATION; Start 03/24/19 at 13:00 Active Scripts Active Flector (Diclofenac Epolamine) 1 Each Patch.td12 1 Patch TP BID PRN 30 Days Symbicort 80-4.5 Mcg Inhaler (Budesonide/Formoterol Fumarate) 10.2 Gm Hfa.aer.ad 2 Puff IH BID 30 Days Reported Magnesium Oxide 400 Mg Tablet 400 Mg PO DAILY Atorvastatin Calcium 20 Mg Tablet 20 Mg PO HS Miralax (Polyethylene Glycol 3350) 17 Gm Powd.pack 1 Pkt PO DAILY Oxycodone Hcl Immed.release (Oxycodone Hcl) 10 Mg Tablet 10 Mg PO TID Clonidine Hcl 0.1 Mg Tablet 0.1 Mg PO PRN Q1HR PRN For SBP> 160 May repeat 1 hour after 1st dose if SBP is still >160 Mirtazapine 45 Mg Tablet 45 Mg PO HS Glipizide 5 Mg Tablet 5 Mg PO DAILY Hydralazine Hcl 25 Mg Tablet 1 Tab PO BIDWMEALS Lisinopril 20 Mg Tablet 1 Tab PO DAILY Robaxin-750 (Methocarbamol) 750 Mg Tablet 1 Tab PO TID Meloxicam 7.5 Mg Tablet 1 Tab PO DAILY Probiotic (Lactobacillus Acidophilus) 1 Each Capsule 1 Each PO DAILY Ambien (Zolpidem Tartrate) 5 Mg Tablet 5 Mg PO HS Ferrous Sulfate 325 Mg Tablet 1 Tab PO DAILY Lorazepam 0.5 Mg Tablet 0.5 Mg PO TIDWMEALS Clopidogrel (Clopidogrel Bisulfate) 75 Mg Tablet 75 Mg PO HS Vitamin E (Vitamin E Mixed) 400 Unit Capsule 400 Unit PO DAILY Fiber (Methylcellulose) 500 Mg Tablet 500 Mg PO BID Mysoline (Primidone) 50 Mg Tablet 100 Mg PO HS Vitamin D3 (Cholecalciferol (Vitamin D3)) 5,000 Unit Tablet 1 Tab PO DAILY Melatonin 3 Mg Tablet 10 Mg PO QHS Buspirone Hcl 15 Mg Tablet 1 Tab PO TID Gabapentin (Gabapentin) 300 Mg Capsule 300 Mg PO TID Cartia Xt (Diltiazem Hcl) 180 Mg Cap.er.24h 180 Mg PO DAILY Levothyroxine Sodium 150 Mcg Tablet 1 Tab PO DAILY07 Ropinirole Hcl 1 Mg Tablet 1 Mg PO TID Donepezil Hcl 10 Mg Tablet 1 Tab PO HS Duloxetine Hcl 60 Mg Capsule.dr 60 Mg PO BID Lidoderm (Lidocaine) 700 Mg Adh..patch 1 Patch TP HS Aspir 81 (Aspirin) 81 Mg Tablet. 1 Tab PO DAILY Carbidopa-Levodopa 25-100 Tab (Carbidopa/Levodopa) 1 Each Tablet 3 Tab PO TIDWMEALS Nexium Capsule (Esomeprazole Magnesium) 40 Mg Capsule. 40 Mg PO DAILY Allergies Allergies: Coded Allergies: Sulfa (Sulfonamide Antibiotics) (Verified Allergy, Intermediate, hives, 11/01/17) dexamethasone (Verified Allergy, Intermediate, 11/01/17) ROS Review of System Per HPI Physical Exam Physical Exam General: NAD HEENT: Mucous membr. moist/pink Neck Supple Lungs: Clear to auscultation, non labored Heart: Regular rate 2/6 systolic murmur Abdomen: Soft, No tenderness Extremities: No edema Skin: No Rash Neuro: Per Neurologist Psych/Mental Status: Mood NL No Carbone Vital Signs Vital Signs Date Time Temp Pulse Resp B/P (MAP) Pulse Ox O2 Delivery O2 Flow Rate FiO2 03/26/19 08:59 94 Room Air 03/26/19 08:57 77 192/77 03/26/19 08:56 17 03/26/19 07:00 98.6 98.6 Assessment & Plan CKD stage 3 - stable renal function Used to follow with Dr Stinson Stable renal function Lt Renal Art Stenosis- On US CTA in 2018 no e/o of CAM, will repeat CTA to r/o CAM and Complex cyst on US - Dw Dr. Bolanos Discussed with pt and daughter risk of MAU, pt would like to go ahead, IV NS for prophylaxis HTN- Poorly controlled , labile, cardiology managing Agree with Lisinopril Unilateral CAM reported on US, No Pulm edema with Lisinopril Rt Kidney Complex cyst-On US , CTA in 2018- was reported normal Repeat CT, dw Dr. Saldaña Transient Ischemic attack with dysarthria - neuro following Right carotid artery stenosis: moderate per doppler CAD; past stent to PLB, clinically stable PAFIB; currently SR Factor V leiden deficiency Discussed at great length with Pt and daughter Dw RN Labs Labs Laboratory Tests Test 03/24/19 11:25 03/24/19 12:40 03/24/19 16:48 03/24/19 21:08 Glucose (Fingerstick) 74 mg/dL (70-99) 73 mg/dL (70-99) 102 mg/dL (70-99) White Blood Count 4.6 x10^3/uL (4.0-11.0) Red Blood Count 3.81 x10^6/uL (3.50-5.40) Hemoglobin 11.8 g/dL (12.0-15.5) Hematocrit 35.1 % (36.0-47.0) Mean Corpuscular Volume 92 fL (79-100) Mean Corpuscular Hemoglobin 31 pg (25-35) Mean Corpuscular Hemoglobin Concent 34 g/dL (31-37) Red Cell Distribution Width 13.7 % (11.5-14.5) Platelet Count 342 x10^3/uL (140-400) Neutrophils (%) (Auto) 57 % (31-73) Lymphocytes (%) (Auto) 32 % (24-48) Monocytes (%) (Auto) 8 % (0-9) Eosinophils (%) (Auto) 3 % (0-3) Basophils (%) (Auto) 1 % (0-3) Neutrophils # (Auto) 2.6 x10^3/uL (1.8-7.7) Lymphocytes # (Auto) 1.5 x10^3/uL (1.0-4.8) Monocytes # (Auto) 0.4 x10^3/uL (0.0-1.1) Eosinophils # (Auto) 0.1 x10^3/uL (0.0-0.7) Basophils # (Auto) 0.0 x10^3/uL (0.0-0.2) Test 03/25/19 07:24 03/25/19 11:31 03/25/19 13:30 03/25/19 16:55 Glucose (Fingerstick) 120 mg/dL (70-99) 96 mg/dL (70-99) 80 mg/dL (70-99) Sodium Level 140 mmol/L (136-145) Potassium Level 4.7 mmol/L (3.5-5.1) Chloride Level 101 mmol/L (98-107) Carbon Dioxide Level 33 mmol/L (21-32) Anion Gap 6 (6-14) Blood Urea Nitrogen 26 mg/dL (7-20) Creatinine 1.1 mg/dL (0.6-1.0) Estimated GFR (Cockcroft-Gault) 48.7 Glucose Level 116 mg/dL (70-99) Calcium Level 8.7 mg/dL (8.5-10.1) Phosphorus Level 4.9 mg/dL (2.6-4.7) Albumin 3.3 g/dL (3.4-5.0) Test 03/25/19 21:23 03/26/19 07:55 Glucose (Fingerstick) 109 mg/dL (70-99) 105 mg/dL (70-99) Laboratory Tests Test 03/25/19 11:31 03/25/19 13:30 03/25/19 16:55 03/25/19 21:23 Glucose (Fingerstick) 96 mg/dL (70-99) 80 mg/dL (70-99) 109 mg/dL (70-99) Sodium Level 140 mmol/L (136-145) Potassium Level 4.7 mmol/L (3.5-5.1) Chloride Level 101 mmol/L (98-107) Carbon Dioxide Level 33 mmol/L (21-32) Anion Gap 6 (6-14) Blood Urea Nitrogen 26 mg/dL (7-20) Creatinine 1.1 mg/dL (0.6-1.0) Estimated GFR (Cockcroft-Gault) 48.7 Glucose Level 116 mg/dL (70-99) Calcium Level 8.7 mg/dL (8.5-10.1) Phosphorus Level 4.9 mg/dL (2.6-4.7) Albumin 3.3 g/dL (3.4-5.0) Test 03/26/19 07:55 Glucose (Fingerstick) 105 mg/dL (70-99) Review All relevant outside records, renal labs, imaging studies, telemetry/EKG's were reviewed. Images Images . Elevated peak systolic velocity within the left renal artery. Despite a normal renal artery to aorta velocity ratio, this suggests greater than 60% stenosis. 2. No Doppler evidence of greater than 60% stenosis involving the right renal artery. 3. 2.0 cm hypoechoic lesion within the mid zone of the right kidney, possibly a complex cyst with internal septation. The possibility of a solid lesion component is not excluded sonographically. There is also a suspected simple cyst within the left kidney measuring 2.1 cm. There is no correlate for these findings on the CT angiogram dated 11/05/2017. Renal protocol CT or MRI is recommended to confirm benignity. 4. Renal cortical lobulation, developmental or due to scarring. There is also increased right upper, convexity, a finding which can be seen with medical renal disease. TAISHA GARCIA MD Mar 26, 2019 10:28
[2019-03-26 11:00] VITALS: BP 151/64
--- NOTE | 2019-03-26 11:05 | PDOC ---
CARDIO Progress Notes Date and Time Date of Service 03/26/19 Time of Evaluation 1100 Subjective Subjective: No Chest Pain, No shortness of breath, No Palpitations, Other (anxious about further testing tomorrow.) Vitals Vitals Vital Signs Date Time Temp Pulse Resp B/P (MAP) Pulse Ox O2 Delivery O2 Flow Rate FiO2 03/26/19 08:59 94 Room Air 03/26/19 08:57 77 192/77 03/26/19 08:56 17 03/26/19 07:00 98.6 98.6 Weight Weight [ ] Input and Output Intake and Output Intake and Output 03/26/19 07:00 Intake Total 1270 ml Balance 1270 ml Intake Oral 1270 ml # Voids 3 Laboratory Labs Laboratory Tests Test 03/25/19 11:31 03/25/19 13:30 03/25/19 16:55 03/25/19 21:23 Glucose (Fingerstick) 96 mg/dL (70-99) 80 mg/dL (70-99) 109 mg/dL (70-99) Sodium Level 140 mmol/L (136-145) Potassium Level 4.7 mmol/L (3.5-5.1) Chloride Level 101 mmol/L (98-107) Carbon Dioxide Level 33 mmol/L (21-32) Anion Gap 6 (6-14) Blood Urea Nitrogen 26 mg/dL (7-20) Creatinine 1.1 mg/dL (0.6-1.0) Estimated GFR (Cockcroft-Gault) 48.7 Glucose Level 116 mg/dL (70-99) Calcium Level 8.7 mg/dL (8.5-10.1) Phosphorus Level 4.9 mg/dL (2.6-4.7) Albumin 3.3 g/dL (3.4-5.0) Test 03/26/19 07:55 Glucose (Fingerstick) 105 mg/dL (70-99) Physical Exam HEENT: Neck Supple W Full Motion Chest: Symmetric LUNGS: Other (diminished bases) Heart: RRR Abdomen: Soft N/T Extremities: No Calf Tenderness, Other (trace LE edema) Neurology: alert, oriented, follow commands Assessment Assessment 1. Hypertension; labile in the mornings 2. Possible CVA with dysarthria, weakness. Neuro following 3. Metabolic Encephalopathy: improved 4. HX of CVA and seizures 5. Right carotid artery stenosis: moderate per doppler 6. Renal artery stenosis; unilateral. CTA ordered for tomorrow for further evaluation 7. Hx of CV/and parkinsons/dementia 8. CAD; past stent to PLB, clinically stable 9. Hyperlipidemia 10. PAFIB; currently SR 11. PPM in situ: ([facility]) 12. factor V leiden deficiency Recommendations Increase hydralazine to TID Add Imdur at HS ASA for stroke prevention, poor candidate for custodial anticoagulation due to high fall risk but if suspicion for CVA is high then may need to reconsider anticoagulation given her hx of AFIB and thrombophilia. Defer to neurology Continue statin, Plavix, ASA Continue cardizem Supportive care MICHAEL DAILEY APRN Mar 26, 2019 11:05
--- NOTE | 2019-03-26 11:26 | PDOC ---
PROGRESS NOTES History of Present Illness History of Present Illness ASSESSMENT AND PLAN: IMPRESSION: No acute intracranial findings. on ct head Probable transient ischemic attack. 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 Despite a normal renal artery to aorta velocity ratio, this suggests greater than 60% stenosis. No Doppler evidence of greater than 60% stenosis involving the right renal artery. 2.0 cm hypoechoic lesion within the mid zone of the right kidney, possibly a complex cyst with internal septation. The possibility of a solid lesion component is not excluded sonographically. There is also a suspected simple cyst within the left kidney measuring 2.1 cm. There is no correlate for these findings on the CT angiogram dated 11/05/2017. Renal protocol CT or MRI is recommended to confirm benignity. Renal cortical lobulation, developmental or due to scarring. There is also increased right upper, convexity, a finding which can be seen with medical renal disease. admitted. consult Neurology. 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 PT, OT speech therapy. DVT prophylaxis. Full Code. home meds increase her aspirin. fluid restriction bmp today urinary na, random PT/OT Decrease glipizide to 2.5 mg po daily inc lisinopril to 20 mg po bid INC HYDRALIZINE TO 50MG PO BID DILCOLAX SUPP 10MG NOW NEPHROLOGY CONSULT MAY NEED RENAL ANGIOGRAPHY ADD LABETALOL 100MG PO BID Urology consult when able for renal lesion 37 min pt exam, chart review, > 50% of time spent with exam, chart review, pt care coordination Vitals Vitals Vital Signs Date Time Temp Pulse Resp B/P (MAP) Pulse Ox O2 Delivery O2 Flow Rate FiO2 03/26/19 11:00 98.7 85 16 151/64 (93) 95 Room Air 98.7 Physical Exam Physical Exam PHYSICAL EXAMINATION: VITALS: Within normal limits and are stable. GENERAL: No apparent distress. Alert and oriented. HEENT: Head is normocephalic, atraumatic, pupils were equally round and reactive to light and accommodation. NECK: Supple, no JVD, no thyromegaly was noted. LUNGS: Clear to auscultation in all lung martinez without rhonchi or wheezing. HEART: RRR, S1, S2 present. Peripheral pulses intact, no obvious murmurs were noted. ABDOMEN: Soft, nontender. Positive bowel sounds no organomegaly, normal bowel sounds. EXTREMITIES: Without any cyanosis, clubbing, or edema. Pedal pulses intact, Homans sign is negative. NEUROLOGIC: confused, anxious calm PSYCHIATRIC: Normal affect, normal mood. Stable. SKIN: No ulcerations or rashes, good skin turgor, no jaundice. VASCULAR: Good capillary refill, neurovascular bundle appears to be intact. General: No acute distress Heart: Regular rate Lungs: Clear Abdomen: Normal bowel sounds Extremities: No cyanosis, No edema Labs LABS Laboratory Tests Test 03/25/19 11:31 03/25/19 13:30 03/25/19 16:55 03/25/19 21:23 Glucose (Fingerstick) 96 mg/dL (70-99) 80 mg/dL (70-99) 109 mg/dL (70-99) Sodium Level 140 mmol/L (136-145) Potassium Level 4.7 mmol/L (3.5-5.1) Chloride Level 101 mmol/L (98-107) Carbon Dioxide Level 33 mmol/L (21-32) Anion Gap 6 (6-14) Blood Urea Nitrogen 26 mg/dL (7-20) Creatinine 1.1 mg/dL (0.6-1.0) Estimated GFR (Cockcroft-Gault) 48.7 Glucose Level 116 mg/dL (70-99) Calcium Level 8.7 mg/dL (8.5-10.1) Phosphorus Level 4.9 mg/dL (2.6-4.7) Albumin 3.3 g/dL (3.4-5.0) Test 03/26/19 07:55 Glucose (Fingerstick) 105 mg/dL (70-99) Assessment and Plan Assessmemt and Plan Problems Medical Problems: (1) Acute focal neurological deficit, onset within 3-24 hours Status: Acute (2) TIA (transient ischemic attack) Status: Acute Comment Review of Relevant I have reviewed the following items dina (where applicable) has been applied. Labs Laboratory Tests Test 03/24/19 12:40 03/24/19 16:48 03/24/19 21:08 03/25/19 07:24 White Blood Count 4.6 x10^3/uL (4.0-11.0) Red Blood Count 3.81 x10^6/uL (3.50-5.40) Hemoglobin 11.8 g/dL (12.0-15.5) Hematocrit 35.1 % (36.0-47.0) Mean Corpuscular Volume 92 fL (79-100) Mean Corpuscular Hemoglobin 31 pg (25-35) Mean Corpuscular Hemoglobin Concent 34 g/dL (31-37) Red Cell Distribution Width 13.7 % (11.5-14.5) Platelet Count 342 x10^3/uL (140-400) Neutrophils (%) (Auto) 57 % (31-73) Lymphocytes (%) (Auto) 32 % (24-48) Monocytes (%) (Auto) 8 % (0-9) Eosinophils (%) (Auto) 3 % (0-3) Basophils (%) (Auto) 1 % (0-3) Neutrophils # (Auto) 2.6 x10^3/uL (1.8-7.7) Lymphocytes # (Auto) 1.5 x10^3/uL (1.0-4.8) Monocytes # (Auto) 0.4 x10^3/uL (0.0-1.1) Eosinophils # (Auto) 0.1 x10^3/uL (0.0-0.7) Basophils # (Auto) 0.0 x10^3/uL (0.0-0.2) Glucose (Fingerstick) 73 mg/dL (70-99) 102 mg/dL (70-99) 120 mg/dL (70-99) Test 03/25/19 11:31 03/25/19 13:30 03/25/19 16:55 03/25/19 21:23 Glucose (Fingerstick) 96 mg/dL (70-99) 80 mg/dL (70-99) 109 mg/dL (70-99) Sodium Level 140 mmol/L (136-145) Potassium Level 4.7 mmol/L (3.5-5.1) Chloride Level 101 mmol/L (98-107) Carbon Dioxide Level 33 mmol/L (21-32) Anion Gap 6 (6-14) Blood Urea Nitrogen 26 mg/dL (7-20) Creatinine 1.1 mg/dL (0.6-1.0) Estimated GFR (Cockcroft-Gault) 48.7 Glucose Level 116 mg/dL (70-99) Calcium Level 8.7 mg/dL (8.5-10.1) Phosphorus Level 4.9 mg/dL (2.6-4.7) Albumin 3.3 g/dL (3.4-5.0) Test 03/26/19 07:55 Glucose (Fingerstick) 105 mg/dL (70-99) Laboratory Tests Test 03/25/19 11:31 03/25/19 13:30 03/25/19 16:55 03/25/19 21:23 Glucose (Fingerstick) 96 mg/dL (70-99) 80 mg/dL (70-99) 109 mg/dL (70-99) Sodium Level 140 mmol/L (136-145) Potassium Level 4.7 mmol/L (3.5-5.1) Chloride Level 101 mmol/L (98-107) Carbon Dioxide Level 33 mmol/L (21-32) Anion Gap 6 (6-14) Blood Urea Nitrogen 26 mg/dL (7-20) Creatinine 1.1 mg/dL (0.6-1.0) Estimated GFR (Cockcroft-Gault) 48.7 Glucose Level 116 mg/dL (70-99) Calcium Level 8.7 mg/dL (8.5-10.1) Phosphorus Level 4.9 mg/dL (2.6-4.7) Albumin 3.3 g/dL (3.4-5.0) Test 03/26/19 07:55 Glucose (Fingerstick) 105 mg/dL (70-99) Medications Current Medications Aspirin (Children'S Aspirin) 324 mg 1X STAT PO Last administered on 03/19/19at 17:50; Start 03/19/19 at 17:32; Stop 03/19/19 at 17:39; Status DC Iohexol (Omnipaque 350 Mg/ml) 60 ml 1X ONCE IV ; Start 03/19/19 at 17:45; Stop 03/19/19 at 17:46; Status DC Lorazepam (Ativan Inj) 1 mg 1X STAT IVP Last administered on 03/19/19at 19:33; Start 03/19/19 at 18:51; Stop 03/19/19 at 18:56; Status DC Pharmacy Consult (C.diff Med Screen By Rx) 1 each 1X ONCE [facility] ; Start 03/20/19 at 09:00; Stop 03/20/19 at 09:01; Status DC Aspirin (Ecotrin) 81 mg DAILYWBKFT PO Last administered on 03/26/19 08:56; Start 03/20/19 at 08:00 Atorvastatin Calcium (Lipitor) 20 mg HS PO Last administered on 03/25/19 19:51; Start 03/19/19 at 23:00 Carbidopa/Levodopa (Sinemet 25/100) 3 tab TIDWMEALS PO Last administered on 03/26/19 08:54; Start 03/19/19 at 23:00 Clonidine HCl (Catapres) 0.1 mg PRN Q1HR PRN PO HYPERTENSION Last administered on 03/24/19 10:25; Start 03/19/19 at 22:00 Clopidogrel Bisulfate (Plavix) 75 mg HS PO Last administered on 03/25/19 19:49; Start 03/19/19 at 23:00 Diltiazem HCl (Cardizem 24hr Cd) 180 mg DAILY PO Last administered on 05/26/18 08:57; Start 03/20/19 at 09:00 Donepezil HCl (Aricept) 10 mg HS PO Last administered on 03/25/19 19:50; Start 03/19/19 at 23:00 Ferrous Sulfate (Feosol) 325 mg DAILY PO Last administered on 03/26/19 08:56; Start 03/20/19 at 09:00 Gabapentin (Neurontin) 300 mg TID PO Last administered on 03/26/19 08:56; Start 03/19/19 at 23:00 Glipizide (Glucotrol) 5 mg DAILY PO Last administered on 03/22/19 08:10; Start 03/20/19 at 09:00; Stop 03/22/19 at 13:43; Status DC Hydralazine HCl (Apresoline) 25 mg BIDWMEALS PO Last administered on 03/24/19 09:07; Start 03/19/19 at 23:00; Stop 03/24/19 at 11:55; Status DC Levothyroxine Sodium (Synthroid) 150 mcg DAILY06 PO Last administered on 03/26/19 08:54; Start 03/20/19 at 06:00 Lidocaine (Lidoderm) 1 patch HS TP Last administered on 03/25/19 19:48; Start 03/19/19 at 23:00 Lisinopril (Prinivil) 20 mg DAILY PO Last administered on 03/23/19 09:25; Start 03/20/19 at 09:00; Stop 03/23/19 at 11:36; Status DC Lorazepam (Ativan) 0.5 mg TIDWMEALS PO Last administered on 03/26/19 08:54; Start 03/19/19 at 23:00 Meloxicam (Mobic) 7.5 mg DAILY PO Last administered on 03/26/19 08:57; Start 03/20/19 at 09:00 Methocarbamol (Robaxin) 750 mg TID PO Last administered on 03/26/19 08:55; Start 03/19/19 at 23:00 Polyethylene Glycol (miraLAX PACKET) 17 gm DAILY PO Last administered on 03/26/19 08:57; Start 03/20/19 at 09:00 Primidone (Mysoline) 100 mg HS PO Last administered on 03/25/19 19:48; Start 03/19/19 at 23:00 Ropinirole HCl (Requip) 1 mg TID PO Last administered on 03/26/19 08:57; Start 03/19/19 at 23:00 Zolpidem Tartrate (Ambien) 5 mg HS PO Last administered on 03/25/19 19:48; Start 03/19/19 at 23:00 Non-Formulary Medication (Budesonide/ Formoterol Fumarate (Symbicort 80-4.5 Mcg Inhaler)) 2 puff BID IH ; Start 03/20/19 at 09:00; Status UNV Buspirone HCl (Buspar) 15 mg TID PO Last administered on 03/26/19 08:54; Start 03/19/19 at 23:00 Vitamin D (Vitamin D3) 5,000 unit DAILY PO Last administered on 03/26/19 08:55; Start 03/20/19 at 09:00 Duloxetine HCl (Cymbalta) 60 mg BID PO Last administered on 03/26/19 08:56; Start 03/19/19 at 23:00 Pantoprazole Sodium (Protonix) 40 mg DAILYAC PO Last administered on 03/20/19 09:07; Start 03/20/19 at 07:30; Stop 03/20/19 at 09:57; Status DC Lactobacillus Rhamnosus (Culturelle) 1 cap DAILY PO Last administered on 03/20/19 09:07; Start 03/20/19 at 09:00; Stop 03/20/19 at 09:56; Status DC Magnesium Oxide (Magnesium Oxide) 400 mg DAILY PO Last administered on 08:56; Start 03/20/19 at 09:00 Non-Formulary Medication (Melatonin ) 10 mg QHS PO ; Start 03/20/19 at 21:00; Status UNV Calcium Polycarbophil (Fibercon) 625 mg BID PO Last administered on 03/26/19 08:56; Start 03/20/19 at 09:00 Mirtazapine (Remeron) 45 mg HS PO Last administered on 03/25/19 19:49; Start 03/19/19 at 23:00 Oxycodone HCl (Roxicodone) 10 mg TID PO Last administered on 03/26/19 08:56; Start 03/19/19 at 23:00 Vitamin E (Vitamin E.) 400 unit DAILY PO Last administered on 03/26/19 08:54; Start 03/20/19 at 09:00 Budesonide (Pulmicort) 0.5 mg RTBID NEB Last administered on 03/26/19 08:57; Start 03/20/19 at 08:00 Albuterol Sulfate (Ventolin Neb Soln) 2.5 mg RTQID NEB Last administered on 03/26/19 08:57; Start 03/20/19 at 08:00 Lactobacillus Rhamnosus (Culturelle) 1 cap BID PO Last administered on 03/26/19 08:55; Start 03/20/19 at 21:00 Famotidine (Pepcid) 20 mg DAILY PO Last administered on 03/26/19at 08:55; Start 03/21/19 at 09:00 Magnesium Hydroxide (Milk Of Magnesia) 2,400 mg 1X ONCE PO Last administered on 03/20/19 13:20; Start 03/20/19 at 13:30; Stop 03/20/19 at 13:31; Status DC Diclofenac Sodium (Voltaren) 1 minnie BID TP Last administered on 03/26/19 08:58; Start 03/20/19 at 13:30 Levofloxacin (Levaquin) 750 mg 1X ONCE PO Last administered on 03/21/19 13:56; Start 03/21/19 at 14:00; Stop 03/21/19 at 14:01; Status DC Dextrose (Dextrose 50%-Water Syringe) 12.5 gm PRN Q15MIN PRN IV SEE COMMENTS Last administered on 03/21/19 17:09; Start 03/21/19 at 17:00 Ondansetron HCl (Zofran) 4 mg PRN Q6HRS PRN IVP NAUSEA/VOMITING Last administered on 03/22/19 09:45; Start 03/22/19 at 09:45 Acetaminophen (Tylenol) 650 mg PRN Q6HRS PRN PO PAIN Last administered on 03/22/19 09:46; Start 03/22/19 at 09:45 Glipizide (Glucotrol) 2.5 mg DAILY PO Last administered on 03/26/19 08:55; Start 03/23/19 at 09:00 Senna/Docusate Sodium (Senna Plus) 1 tab PRN BID PRN PO CONSTIPATION Last administered on 03/25/19 10:09; Start 03/22/19 at 14:45 Lisinopril (Prinivil) 20 mg BID PO Last administered on 03/26/19 08:56; Start 03/23/19 at 21:00 Lorazepam (Ativan) 0.5 mg 1X ONCE PO Last administered on 03/23/19at 14:39; Start 03/23/19 at 14:45; Stop 03/23/19 at 14:46; Status DC Hydralazine HCl (Apresoline) 50 mg BIDWMEALS PO Last administered on 03/26/19 08:55; Start 03/24/19 at 17:00; Stop 03/26/19 at 11:05; Status DC Hydralazine HCl (Apresoline) 25 mg ONCE ONCE PO Last administered on 03/24/19 12:31; Start 03/24/19 at 12:00; Stop 11/18/19 at 12:01; Status DC Bisacodyl (Dulcolax Supp) 10 mg 1X ONCE [place] ; Start 03/24/19 at 13:00; Stop 03/24/19 at 13:01; Status DC Bisacodyl (Dulcolax Supp) 10 mg PRN DAILY PRN [place] CONSTIPATION; Start 03/24/19 at 13:00 Hydralazine HCl (Apresoline) 50 mg TID PO ; Start 03/26/19 at 14:00 Isosorbide Mononitrate (Imdur) 30 mg HS PO ; Start 03/26/19 at 21:00 Active Scripts Active Flector (Diclofenac Epolamine) 1 Each Patch.td12 1 Patch TP BID PRN 30 Days Symbicort 80-4.5 Mcg Inhaler (Budesonide/Formoterol Fumarate) 10.2 Gm Hfa.aer.ad 2 Puff IH BID 30 Days Reported Magnesium Oxide 400 Mg Tablet 400 Mg PO DAILY Atorvastatin Calcium 20 Mg Tablet 20 Mg PO HS Miralax (Polyethylene Glycol 3350) 17 Gm Powd.pack 1 Pkt PO DAILY Oxycodone Hcl Immed.release (Oxycodone Hcl) 10 Mg Tablet 10 Mg PO TID Clonidine Hcl 0.1 Mg Tablet 0.1 Mg PO PRN Q1HR PRN For SBP> 160 May repeat 1 hour after 1st dose if SBP is still >160 Mirtazapine 45 Mg Tablet 45 Mg PO HS Glipizide 5 Mg Tablet 5 Mg PO DAILY Hydralazine Hcl 25 Mg Tablet 1 Tab PO BIDWMEALS Lisinopril 20 Mg Tablet 1 Tab PO DAILY Robaxin-750 (Methocarbamol) 750 Mg Tablet 1 Tab PO TID Meloxicam 7.5 Mg Tablet 1 Tab PO DAILY Probiotic (Lactobacillus Acidophilus) 1 Each Capsule 1 Each PO DAILY Ambien (Zolpidem Tartrate) 5 Mg Tablet 5 Mg PO HS Ferrous Sulfate 325 Mg Tablet 1 Tab PO DAILY Lorazepam 0.5 Mg Tablet 0.5 Mg PO TIDWMEALS Clopidogrel (Clopidogrel Bisulfate) 75 Mg Tablet 75 Mg PO HS Vitamin E (Vitamin E Mixed) 400 Unit Capsule 400 Unit PO DAILY Fiber (Methylcellulose) 500 Mg Tablet 500 Mg PO BID Mysoline (Primidone) 50 Mg Tablet 100 Mg PO HS Vitamin D3 (Cholecalciferol (Vitamin D3)) 5,000 Unit Tablet 1 Tab PO DAILY Melatonin 3 Mg Tablet 10 Mg PO QHS Buspirone Hcl 15 Mg Tablet 1 Tab PO TID Gabapentin (Gabapentin) 300 Mg Capsule 300 Mg PO TID Cartia Xt (Diltiazem Hcl) 180 Mg Cap.er.24h 180 Mg PO DAILY Levothyroxine Sodium 150 Mcg Tablet 1 Tab PO DAILY07 Ropinirole Hcl 1 Mg Tablet 1 Mg PO TID Donepezil Hcl 10 Mg Tablet 1 Tab PO HS Duloxetine Hcl 60 Mg Capsule.dr 60 Mg PO BID Lidoderm (Lidocaine) 700 Mg Adh..patch 1 Patch TP HS Aspir 81 (Aspirin) 81 Mg Tablet.dr 1 Tab PO DAILY Carbidopa-Levodopa 25-100 Tab (Carbidopa/Levodopa) 1 Each Tablet 3 Tab PO TIDWMEALS Nexium Capsule (Esomeprazole Magnesium) 40 Mg Capsule.dr 40 Mg PO DAILY Vitals/I & O Vital Sign - Last 24 Hours 03/25/19 03/25/19 03/25/19 03/25/19 11:38 11:50 13:06 14:10 Temp 98.8 98.8 Pulse 72 Resp 18 16 16 B/P (MAP) 136/64 (88) Pulse Ox 96 95 O2 Delivery Room Air Room Air Room Air Room Air 03/25/19 03/25/19 03/25/19 03/25/19 15:34 15:39 17:38 19:00 Temp 98.3 98.3 Pulse 74 74 Resp 20 B/P (MAP) 125/44 (71) 125/44 Pulse Ox 96 97 O2 Delivery Room Air Room Air Room Air 03/25/19 03/25/19 03/25/19 03/25/19 19:20 19:49 19:51 19:56 Temp 98.4 98.4 Pulse 90 74 Resp 18 B/P (MAP) 106/82 (90) 125/44 Pulse Ox 98 94 O2 Delivery Room Air Room Air Room Air 03/25/19 03/26/19 03/26/19 03/26/19 23:58 03:34 07:00 08:55 Temp 98.5 98.0 98.6 98.5 98.0 98.6 Pulse 75 78 77 77 Resp 18 18 18 B/P (MAP) 136/55 (82) 158/51 (86) 182/67 (105) 192/77 148/50 (82) 179/58 (98) 148/50 (82) 154/70 (98) Pulse Ox 96 97 96 O2 Delivery Room Air Room Air Room Air 03/26/19 03/26/19 03/26/19 03/26/19 08:56 08:56 08:57 08:59 Pulse 77 77 Resp 17 B/P (MAP) 192/69 192/77 Pulse Ox 94 O2 Delivery Room Air Room Air 03/26/19 11:00 Temp 98.7 98.7 Pulse 85 Resp 16 B/P (MAP) 151/64 (93) Pulse Ox 95 O2 Delivery Room Air Intake and Output 03/25/19 03/25/19 03/26/19 15:00 23:00 07:00 Intake Total 420 ml 500 ml 350 ml Balance 420 ml 500 ml 350 ml PITER BERMUDEZ MD Mar 26, 2019 11:26
[2019-03-26] MEDS: DEXTROSE 50% 25 GM / 50ML DISP.SYRIN. IV PRN (11:53)
[2019-03-26] MEDS ORDERED: LORazepam 0.5 MG TABLET PO ONE (12:30)
[2019-03-26 15:00] VITALS: BP 156/90
[2019-03-26] MEDS: LABETALOL HCL 100 MG TABLET. PO SCH ×2 (15:58→21:35)
[2019-03-26 19:25] VITALS: BP 143/52
[2019-03-26] MEDS: DONEPEZIL HCL 10 MG TABLET. PO SCH (21:32)
[2019-03-26] MEDS: ZOLPIDEM 5 MG TABLET. PO SCH (21:32)
[2019-03-26] MEDS: ATORVASTATIN CALCIUM 20 MG TABLET PO SCH (21:33)
[2019-03-26] MEDS: CLOPIDOGREL BISULFATE 75 MG TABLET PO SCH (21:34)
[2019-03-26] MEDS: ISOSORBIDE MONONITRATE ER 30 MG TAB.ER.24H PO SCH (21:34)
[2019-03-26] MEDS: PRIMIDONE 50 MG TABLET PO SCH (21:34)
[2019-03-26] MEDS: MIRTAZAPINE 15 MG TABLET PO SCH (21:35)
[2019-03-26] MEDS: LIDOCAINE (700MG/PATCH) PATCH. TP SCH (21:36)
[2019-03-26] MEDS: IV NORMAL SALINE 1000ML BAG 1,000 ML IV SCH (21:47)
[2019-03-26 23:51] VITALS: BP 114/42
[2019-03-27 03:47] VITALS: BP 104/35
[2019-03-27] MEDS: LEVOTHYROXINE 150 MCG TABLET PO SCH (05:23)
[2019-03-27 07:00] VITALS: BP_SYST 134; BP_SYST 139; BP_SYST 153; BP_DIAS 48; BP_DIAS 57; BP_DIAS 91
[2019-03-27 07:07] LABS: HEMATOCRIT 30.6 % (36.0-47.0); HEMOGLOBIN 10.2 g/dL (12.0-15.5); RED BLOOD COUNT 3.29 x10^6/uL (3.50-5.40); RED CELL DISTRIBUTION WIDTH 14.1 % (11.5-14.5); WHITE BLOOD COUNT 4.4 x10^3/uL (4.0-11.0)
[2019-03-27 07:30] LABS: ALBUMIN 2.7 g/dL (3.4-5.0); ALBUMIN/GLOBULIN RATIO 0.9 (1.0-1.7); CALCIUM 8.4 mg/dL (8.5-10.1); CREATININE 1.1 mg/dL (0.6-1.0); GFR 48.7; TOTAL BILIRUBIN 0.3 mg/dL (0.2-1.0); TOTAL PROTEIN 5.8 g/dL (6.4-8.2)
[2019-03-27] MEDS: BUDESONIDE 0.5 MG/2 ML NEBU. NEB SCH ×2 (07:35→20:29)
[2019-03-27] MEDS: ALBUTEROL SULFATE 2.5 MG/3 ML NEBU. NEB SCH ×4 (07:35→20:29)
[2019-03-27] MEDS ORDERED: CONTRAST GIVEN. MC PRN (09:00)
[2019-03-27] MEDS ORDERED: IOHEXOL 350 MG/ML 100 ML VIAL. IV ONE (09:00)
[2019-03-27] MEDS: IV NORMAL SALINE 1000ML BAG 1,000 ML IV SCH ×3 (09:30→10:30)
[2019-03-27] MEDS: CALCIUM POLYCARBOPHIL 625 MG TABLET PO SCH ×2 (10:03→21:03)
[2019-03-27] MEDS: LACTOBACILLUS RHAMNOSUS GG 1 CAPSULE. PO SCH ×2 (10:03→21:00)
[2019-03-27] MEDS: LABETALOL HCL 100 MG TABLET. PO SCH (10:03)
[2019-03-27] MEDS: busPIRone 5 MG TABLET. PO SCH ×3 (10:04→21:01)
[2019-03-27] MEDS: VITAMIN E 200 UNIT CAPSULE. PO SCH (10:04)
[2019-03-27] MEDS: glipiZIDE 5 MG TABLET PO SCH (10:04)
[2019-03-27] MEDS: CARBIDOPA/LEVODOPA 25/100MG TABLET PO SCH ×3 (10:04→17:23)
[2019-03-27] MEDS: METHOCARBAMOL 750 MG TABLET PO SCH ×3 (10:05→21:01)
[2019-03-27] MEDS: MAGNESIUM OXIDE 400 MG TABLET PO SCH (10:05)
[2019-03-27] MEDS: MELOXICAM 7.5 MG TABLET PO SCH (10:05)
[2019-03-27] MEDS: LORazepam 0.5 MG TABLET PO SCH ×4 (10:05→17:23)
[2019-03-27] MEDS: DULoxetine HCL 30 MG CAPSULE.DR PO SCH ×2 (10:05→21:02)
[2019-03-27] MEDS: oxyCODONE IR 5 MG TABLET PO SCH ×3 (10:06→20:58)
[2019-03-27] MEDS: FERROUS SULFATE 325 MG TABLET. PO SCH (10:06)
[2019-03-27] MEDS: LISINOPRIL 20 MG TABLET PO SCH ×2 (10:06→21:01)
[2019-03-27] MEDS: CHOLECALCIFEROL (VITAMIN D3) 5,000 UNIT CAPSULE PO SCH (10:06)
[2019-03-27] MEDS: GABAPENTIN 300 MG CAPSULE. PO SCH ×3 (10:06→21:01)
[2019-03-27] MEDS: rOPINIRole 1 MG TABLET. PO SCH ×3 (10:06→21:00)
[2019-03-27] MEDS: ASPIRIN ENTERIC COATED 81 MG TABLET.DR. PO SCH (10:06)
[2019-03-27] MEDS: DICLOFENAC SODIUM 1% TOPICAL GEL 100GM TUBE. TP SCH ×2 (10:08→21:30)
[2019-03-27] MEDS: POLYETHYLENE GLYCOL 3350 17 GM PACKET. PO SCH (10:08)
[2019-03-27] MEDS: FAMOTIDINE 20 MG TABLET. PO SCH (10:11)
--- NOTE | 2019-03-27 10:16 | PDOC ---
SUBJECTIVE ROS No complaints, stable, eating Breakfast OBJECTIVE Vital Signs Vital Signs Date Time Temp Pulse Resp B/P (MAP) Pulse Ox O2 Delivery O2 Flow Rate FiO2 03/27/19 07:36 98 Room Air 03/27/19 07:00 98.3 72 18 139/48 (78) 98.3 134/57 (82) I & 0 Intake and Output 03/27/19 06:59 Intake Total 1300 ml Output Total 3400 ml Balance -2100 ml Intake Oral 1300 ml Output Urine Total 3400 ml # Voids 2 PHYSICAL EXAM Physical Exam General: NAD HEENT: OM moist Neck Supple Lungs: Clear to auscultation, non labored Heart: Regular rate 2/6 systolic murmur Abdomen: Soft, No tenderness Extremities: No edema Skin: No Rash Neuro: Per Neurologist Psych/Mental Status: Mood NL No Carbone DIAGNOSIS/ASSESSMENT Assessment & Plan CKD stage 3 - Used to follow with Dr Stinson Stable renal function ,Rcd IV Contrast for CTA Monitor for MAU. if dced will need fu labs with PCP next week Lt Renal Art Stenosis- On US CTA in 2018 no e/o of CAM, repeat CTA 03/26 - Left kidney is atrophic with respect to the contralateral side. High-grade stenosis of left main renal artery Recommend monitor BP with medical therapy , if failure of optimal medical therapy may need intervention by cardiology HTN- Poorly controlled , labile, cardiology managing Agree with Lisinopril, No Pulm edema noted ,BP better with meds currently see above recommendations Rt Kidney Complex cyst-On US , CTA in 2018- was reported normal CTA 03/26- No focal mass lesions involving the kidneys are identified. Prior ultrasound imaging findings are most likely artifactual. Transient Ischemic attack with dysarthria - neuro following Right carotid artery stenosis: moderate per doppler CAD; past stent to PLB, clinically stable PAFIB; currently SR Factor V leiden deficiency Discussed at great length with Pt and daughter Dw Pt and daughter, they insist to go ahead with Intervention for the CAM .Discussed EBL with them Defer to cardiology COMMENT/RELEVANT DATA Meds Current Medications Medications (Trade) Dose Ordered Sig/Carlene Start Time Stop Time Status Last Admin Dose Admin Acetaminophen (Tylenol) 650 mg PRN Q6HRS PRN 03/22/19 09:45 03/22/19 09:46 650 MG Albuterol Sulfate (Ventolin Neb Soln) 2.5 mg RTQID 03/20/19 08:00 03/27/19 07:35 2.5 MG Aspirin (Children'S Aspirin) 324 mg 1X STAT 03/19/19 17:32 03/19/19 17:39 DC 03/19/19 17:50 324 MG Aspirin (Ecotrin) 81 mg DAILYWBKFT 03/20/19 08:00 03/26/19 08:56 81 MG Atorvastatin Calcium (Lipitor) 20 mg HS 03/19/19 23:00 03/26/19 21:33 20 MG Bisacodyl (Dulcolax Supp) 10 mg PRN DAILY PRN 03/24/19 13:00 Budesonide (Pulmicort) 0.5 mg RTBID 03/20/19 08:00 03/27/19 07:35 0.5 MG Buspirone HCl (Buspar) 15 mg TID 03/19/19 23:00 03/26/19 21:30 15 MG Calcium Polycarbophil (Fibercon) 625 mg BID 03/20/19 09:00 03/26/19 21:34 625 MG Carbidopa/Levodopa (Sinemet 25/100) 3 tab TIDWMEALS 03/19/19 23:00 03/26/19 17:34 3 TAB Clonidine HCl (Catapres) 0.1 mg PRN Q1HR PRN 03/19/19 22:00 03/24/19 10:25 0.1 MG Clopidogrel Bisulfate (Plavix) 75 mg HS 03/19/19 23:00 03/26/19 21:34 75 MG Dextrose (Dextrose 50%-Water Syringe) 12.5 gm PRN Q15MIN PRN 03/21/19 17:00 03/26/19 11:53 12.5 GM Diclofenac Sodium (Voltaren) 1 minnie BID 03/20/19 13:30 03/26/19 21:36 1 MINNIE Diltiazem HCl (Cardizem 24hr Cd) 180 mg DAILY 03/20/19 09:00 03/26/19 08:57 180 MG Donepezil HCl (Aricept) 10 mg HS 03/19/19 23:00 03/26/19 21:32 10 MG Duloxetine HCl (Cymbalta) 60 mg BID 03/19/19 23:00 03/26/19 21:31 60 MG Famotidine (Pepcid) 20 mg DAILY 03/21/19 09:00 03/26/19 08:55 20 MG Ferrous Sulfate (Feosol) 325 mg DAILY 03/20/19 09:00 03/26/19 08:56 325 MG Gabapentin (Neurontin) 300 mg TID 03/19/19 23:00 03/26/19 21:33 300 MG Glipizide (Glucotrol) 2.5 mg DAILY 03/23/19 09:00 03/26/19 08:55 2.5 MG Hydralazine HCl (Apresoline) 50 mg TID 03/26/19 14:00 03/26/19 21:32 50 MG Info (CONTRAST GIVEN -- Rx MONITORING) 1 each PRN DAILY PRN 03/27/19 09:00 03/29/19 08:59 Iohexol (Omnipaque 350 Mg/ml) 70 ml 1X ONCE 03/27/19 09:00 03/27/19 09:01 DC 03/27/19 09:24 70 ML Isosorbide Mononitrate (Imdur) 30 mg HS 03/26/19 21:00 03/26/19 21:34 30 MG Labetalol HCl (Trandate) 100 mg BID 03/26/19 14:00 03/26/19 21:35 100 MG Lactobacillus Rhamnosus (Culturelle) 1 cap BID 03/20/19 21:00 03/26/19 21:31 1 CAP Levofloxacin (Levaquin) 750 mg 1X ONCE 03/21/19 14:00 03/21/19 14:01 DC 03/21/19 13:56 750 MG Levothyroxine Sodium (Synthroid) 150 mcg DAILY06 03/20/19 06:00 03/27/19 05:23 150 MCG Lidocaine (Lidoderm) 1 patch HS 03/19/19 23:00 03/26/19 21:36 1 PATCH Lisinopril (Prinivil) 20 mg BID 03/23/19 21:00 03/26/19 21:33 20 MG Lorazepam (Ativan Inj) 1 mg 1X STAT 03/19/19 18:51 03/19/19 18:56 DC 03/19/19 19:33 1 MG Lorazepam (Ativan) 0.5 mg 1X ONCE 03/26/19 12:30 03/26/19 12:31 DC 03/26/19 12:46 0.5 MG Magnesium Hydroxide (Milk Of Magnesia) 2,400 mg 1X ONCE 03/20/19 13:30 03/20/19 13:31 DC 03/20/19 13:20 2,400 MG Magnesium Oxide (Magnesium Oxide) 400 mg DAILY 03/20/19 09:00 03/26/19 08:56 400 MG Meloxicam (Mobic) 7.5 mg DAILY 03/20/19 09:00 03/26/19 08:57 7.5 MG Methocarbamol (Robaxin) 750 mg TID 03/19/19 23:00 03/26/19 21:35 750 MG Mirtazapine (Remeron) 45 mg HS 03/19/19 23:00 03/26/19 21:35 45 MG Non-Formulary Medication (Budesonide/ Formoterol Fumarate (Symbicort 80-4.5 Mcg Inhaler)) 2 puff BID 03/20/19 09:00 UNV Non-Formulary Medication (Melatonin ) 10 mg QHS 03/20/19 21:00 UNV Ondansetron HCl (Zofran) 4 mg PRN Q6HRS PRN 03/22/19 09:45 03/22/19 09:45 4 MG Oxycodone HCl (Roxicodone) 10 mg TID 03/19/19 23:00 03/26/19 21:33 10 MG Pantoprazole Sodium (Protonix) 40 mg DAILYAC 03/20/19 07:30 03/20/19 09:57 DC 03/20/19 09:07 40 MG Pharmacy Consult (C.diff Med Screen By Rx) 1 each 1X ONCE 03/20/19 09:00 03/20/19 09:01 DC Polyethylene Glycol (miraLAX PACKET) 17 gm DAILY 03/20/19 09:00 03/26/19 08:57 17 GM Primidone (Mysoline) 100 mg HS 03/19/19 23:00 03/26/19 21:34 100 MG Ropinirole HCl (Requip) 1 mg TID 03/19/19 23:00 03/26/19 21:35 1 MG Senna/Docusate Sodium (Senna Plus) 1 tab PRN BID PRN 03/22/19 14:45 03/25/19 10:09 1 TAB Sodium Chloride 1,000 ml @ 80 mls/hr [id number] 03/27/19 15:00 Vitamin D (Vitamin D3) 5,000 unit DAILY 03/20/19 09:00 03/26/19 08:55 5,000 UNIT Vitamin E (Vitamin E.) 400 unit DAILY 03/20/19 09:00 03/26/19 08:54 400 UNIT Zolpidem Tartrate (Ambien) 5 mg HS 03/19/19 23:00 03/26/19 21:32 5 MG Lab Laboratory Tests Test 03/26/19 11:38 03/26/19 12:16 03/26/19 16:45 03/26/19 20:25 Glucose (Fingerstick) 59 mg/dL (70-99) 153 mg/dL (70-99) 98 mg/dL (70-99) 116 mg/dL (70-99) Test 03/27/19 06:03 03/27/19 07:56 White Blood Count 4.4 x10^3/uL (4.0-11.0) Red Blood Count 3.29 x10^6/uL (3.50-5.40) Hemoglobin 10.2 g/dL (12.0-15.5) Hematocrit 30.6 % (36.0-47.0) Mean Corpuscular Volume 93 fL (79-100) Mean Corpuscular Hemoglobin 31 pg (25-35) Mean Corpuscular Hemoglobin Concent 33 g/dL (31-37) Red Cell Distribution Width 14.1 % (11.5-14.5) Platelet Count 322 x10^3/uL (140-400) Sodium Level 139 mmol/L (136-145) Potassium Level 4.0 mmol/L (3.5-5.1) Chloride Level 103 mmol/L (98-107) Carbon Dioxide Level 29 mmol/L (21-32) Anion Gap 7 (6-14) Blood Urea Nitrogen 24 mg/dL (7-20) Creatinine 1.1 mg/dL (0.6-1.0) Estimated GFR (Cockcroft-Gault) 48.7 BUN/Creatinine Ratio 22 (6-20) Glucose Level 99 mg/dL (70-99) Calcium Level 8.4 mg/dL (8.5-10.1) Total Bilirubin 0.3 mg/dL (0.2-1.0) Aspartate Amino Transf (AST/SGOT) 24 U/L (15-37) Alanine Aminotransferase (ALT/SGPT) 14 U/L (14-59) Alkaline Phosphatase 107 U/L (46-116) Total Protein 5.8 g/dL (6.4-8.2) Albumin 2.7 g/dL (3.4-5.0) Albumin/Globulin Ratio 0.9 (1.0-1.7) Glucose (Fingerstick) 103 mg/dL (70-99) Results All relevant outside records, renal labs, imaging studies, telemetry/EKG's were reviewed. TAISHA GARCIA MD Mar 27, 2019 10:16
[2019-03-27 11:00] VITALS: BP_SYST 109; BP_SYST 121; BP_SYST 131; BP_DIAS 36; BP_DIAS 39
--- NOTE | 2019-03-27 11:43 | RAD ---
CT angiography of the abdomen and pelvis 03/27/2019 INDICATION: Renal artery stenosis. Possible renal mass. COMPARISON STUDY: Renal ultrasound., March 24, 2019 TECHNIQUE: Multidetector CT imaging of the abdomen and pelvis was performed both before and after the administration of IV contrast. 3-D reconstructions of abdominal and pelvic vasculature were created on an independent workstation. FINDINGS: Vascular findings: Visualized inferior thoracic aorta is unremarkable. Abdominal aorta demonstrates no aneurysm or dissection. Moderate diffuse aphthous chronic calcification is seen. Dense calcium at the ostium of the celiac artery is seen with probable mild related stenosis. Superior mesenteric artery is calcified but patent. Inferior mesenteric artery is patent. The right renal artery appears to be patent. There is high-grade stenosis of the left renal artery with a tiny flow lumen along the cephalad aspect of the artery. No hemodynamically significant aortoiliac stenosis is seen. Nonvascular findings: Lung bases are unremarkable. Liver is grossly unremarkable. Gallbladder is unremarkable. Adrenal glands are unremarkable. Spleen is within normal limits. Pancreas is grossly unremarkable. Left kidney is atrophic with respect to the contralateral side. Bilateral kidneys demonstrate a significantly lobulated contour, a normal variant. There is a small hypoenhancing lesion in the anterior left kidney likely a small cyst, but too small to adequately characterize. This measures 3 mm diameter. No other focal renal lesions are seen by CT. Contrast excretion from the bilateral kidneys is symmetrical. There is no bowel obstruction. No evidence of acute inflammatory change involving visualized bowel is identified. Bladder is grossly unremarkable. Hysterectomy noted. Prior hernia repair appears to be present anterior abdominal midline. No acute osseous abnormality is seen. Degenerative changes lumbosacral spine. IMPRESSION: 1. High-grade stenosis of left main renal artery. 2. No focal mass lesions involving the kidneys are identified. Prior ultrasound imaging findings are most likely artifactual. CT DOSING PQRS STATEMENT: One or more of the following individualized dose reduction techniques were utilized for this examination: 1. Automated exposure control 2. Adjustment of the mA and/or kV according to patient size 3. Use of iterative reconstruction technique Electronically signed by: Amari Bolanos MD (03/27/2019 11:41 AM) [facility]
--- NOTE | 2019-03-27 13:00 | PDOC ---
PROGRESS NOTES History of Present Illness History of Present Illness ASSESSMENT AND PLAN: IMPRESSION: No acute intracranial findings. on ct head Probable transient ischemic attack. 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 Despite a normal renal artery to aorta velocity ratio, this suggests greater than 60% stenosis. No Doppler evidence of greater than 60% stenosis involving the right renal artery. 2.0 cm hypoechoic lesion within the mid zone of the right kidney, possibly a complex cyst with internal septation.probable artifact The possibility of a solid lesion component is not excluded sonographically. There is also a suspected simple cyst within the left kidney measuring 2.1 cm. There is no correlate for these findings on the CT angiogram dated 11/05/2017. Renal protocol CT or MRI is recommended to confirm benignity. Renal cortical lobulation, developmental or due to scarring. There is also increased right upper, convexity, a finding which can be seen with medical renal disease. High-grade stenosis of left main renal artery. on cta No focal mass lesions involving the kidneys are identified. Prior ultrasound imaging findings are most likely artifactual. admitted. consult Neurology. 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 PT, OT speech therapy. DVT prophylaxis. Full Code. home meds increase her aspirin. fluid restriction bmp today urinary na, random PT/OT Decrease glipizide to 2.5 mg po daily inc lisinopril to 20 mg po bid INC HYDRALIZINE TO 50MG PO BID DILCOLAX SUPP 10MG NOW NEPHROLOGY CONSULT MAY NEED RENAL ANGIOGRAPHY ADD LABETALOL 100MG PO BID 37 min pt exam, chart review, > 50% of time spent with exam, chart review, pt care coordination Vitals Vitals Vital Signs Date Time Temp Pulse Resp B/P (MAP) Pulse Ox O2 Delivery O2 Flow Rate FiO2 03/27/19 11:36 Room Air 03/27/19 11:00 98.6 84 18 131/39 (69) 95 98.6 121/36 (64) 109/39 (62) Physical Exam Physical Exam PHYSICAL EXAMINATION: VITALS: Within normal limits and are stable. GENERAL: No apparent distress. Alert and oriented. HEENT: Head is normocephalic, atraumatic, pupils were equally round and reactive to light and accommodation. NECK: Supple, no JVD, no thyromegaly was noted. LUNGS: Clear to auscultation in all lung martinez without rhonchi or wheezing. HEART: RRR, S1, S2 present. Peripheral pulses intact, no obvious murmurs were noted. ABDOMEN: Soft, nontender. Positive bowel sounds no organomegaly, normal bowel sounds. EXTREMITIES: Without any cyanosis, clubbing, or edema. Pedal pulses intact, Homans sign is negative. NEUROLOGIC: confused, anxious calm PSYCHIATRIC: Normal affect, normal mood. Stable. SKIN: No ulcerations or rashes, good skin turgor, no jaundice. VASCULAR: Good capillary refill, neurovascular bundle appears to be intact. General: No acute distress Heart: Regular rate Lungs: Clear Abdomen: Normal bowel sounds Extremities: No cyanosis, No edema Labs LABS CT angiography of the abdomen and pelvis 03/27/2019 INDICATION: Renal artery stenosis. Possible renal mass. COMPARISON STUDY: Renal ultrasound., March 24, 2019 TECHNIQUE: Multidetector CT imaging of the abdomen and pelvis was performed both before and after the administration of IV contrast. 3-D reconstructions of abdominal and pelvic vasculature were created on an independent workstation. FINDINGS: Vascular findings: Visualized inferior thoracic aorta is unremarkable. Abdominal aorta demonstrates no aneurysm or dissection. Moderate diffuse aphthous chronic calcification is seen. Dense calcium at the ostium of the celiac artery is seen with probable mild related stenosis. Superior mesenteric artery is calcified but patent. Inferior mesenteric artery is patent. The right renal artery appears to be patent. There is high-grade stenosis of the left renal artery with a tiny flow lumen along the cephalad aspect of the artery. No hemodynamically significant aortoiliac stenosis is seen. Nonvascular findings: Lung bases are unremarkable. Liver is grossly unremarkable. Gallbladder is unremarkable. Adrenal glands are unremarkable. Spleen is within normal limits. Pancreas is grossly unremarkable. Left kidney is atrophic with respect to the contralateral side. Bilateral kidneys demonstrate a significantly lobulated contour, a normal variant. There is a small hypoenhancing lesion in the anterior left kidney likely a small cyst, but too small to adequately characterize. This measures 3 mm diameter. No other focal renal lesions are seen by CT. Contrast excretion from the bilateral kidneys is symmetrical. There is no bowel obstruction. No evidence of acute inflammatory change involving visualized bowel is identified. Bladder is grossly unremarkable. Hysterectomy noted. Prior hernia repair appears to be present anterior abdominal midline. No acute osseous abnormality is seen. Degenerative changes lumbosacral spine. IMPRESSION: 1. High-grade stenosis of left main renal artery. 2. No focal mass lesions involving the kidneys are identified. Prior ultrasound imaging findings are most likely artifactual. CT DOSING PQRS STATEMENT: One or more of the following individualized dose reduction techniques were utilized for this examination: 1. Automated exposure control 2. Adjustment of the mA and/or kV according to patient size 3. Use of iterative reconstruction technique Electronically signed by: Amari Gutierrez MD (03/27/2019 11:41 AM) [facility] DICTATED and SIGNED BY: AMARI GUTIERREZ MD DATE: 03/27/19 1141 Laboratory Tests Test 03/26/19 16:45 03/26/19 20:25 03/27/19 06:03 03/27/19 07:56 Glucose (Fingerstick) 98 mg/dL (70-99) 116 mg/dL (70-99) 103 mg/dL (70-99) White Blood Count 4.4 x10^3/uL (4.0-11.0) Red Blood Count 3.29 x10^6/uL (3.50-5.40) Hemoglobin 10.2 g/dL (12.0-15.5) Hematocrit 30.6 % (36.0-47.0) Mean Corpuscular Volume 93 fL (79-100) Mean Corpuscular Hemoglobin 31 pg (25-35) Mean Corpuscular Hemoglobin Concent 33 g/dL (31-37) Red Cell Distribution Width 14.1 % (11.5-14.5) Platelet Count 322 x10^3/uL (140-400) Sodium Level 139 mmol/L (136-145) Potassium Level 4.0 mmol/L (3.5-5.1) Chloride Level 103 mmol/L (98-107) Carbon Dioxide Level 29 mmol/L (21-32) Anion Gap 7 (6-14) Blood Urea Nitrogen 24 mg/dL (7-20) Creatinine 1.1 mg/dL (0.6-1.0) Estimated GFR (Cockcroft-Gault) 48.7 BUN/Creatinine Ratio 22 (6-20) Glucose Level 99 mg/dL (70-99) Calcium Level 8.4 mg/dL (8.5-10.1) Total Bilirubin 0.3 mg/dL (0.2-1.0) Aspartate Amino Transf (AST/SGOT) 24 U/L (15-37) Alanine Aminotransferase (ALT/SGPT) 14 U/L (14-59) Alkaline Phosphatase 107 U/L (46-116) Total Protein 5.8 g/dL (6.4-8.2) Albumin 2.7 g/dL (3.4-5.0) Albumin/Globulin Ratio 0.9 (1.0-1.7) Test 03/27/19 11:48 Glucose (Fingerstick) 152 mg/dL (70-99) Assessment and Plan Assessmemt and Plan Problems Medical Problems: (1) Acute focal neurological deficit, onset within 3-24 hours Status: Acute (2) TIA (transient ischemic attack) Status: Acute Comment Review of Relevant I have reviewed the following items dina (where applicable) has been applied. Labs Laboratory Tests Test 03/25/19 13:30 03/25/19 16:55 03/25/19 21:23 03/26/19 07:55 Sodium Level 140 mmol/L (136-145) Potassium Level 4.7 mmol/L (3.5-5.1) Chloride Level 101 mmol/L (98-107) Carbon Dioxide Level 33 mmol/L (21-32) Anion Gap 6 (6-14) Blood Urea Nitrogen 26 mg/dL (7-20) Creatinine 1.1 mg/dL (0.6-1.0) Estimated GFR (Cockcroft-Gault) 48.7 Glucose Level 116 mg/dL (70-99) Calcium Level 8.7 mg/dL (8.5-10.1) Phosphorus Level 4.9 mg/dL (2.6-4.7) Albumin 3.3 g/dL (3.4-5.0) Glucose (Fingerstick) 80 mg/dL (70-99) 109 mg/dL (70-99) 105 mg/dL (70-99) Test 03/26/19 11:38 03/26/19 12:16 03/26/19 16:45 03/26/19 20:25 Glucose (Fingerstick) 59 mg/dL (70-99) 153 mg/dL (70-99) 98 mg/dL (70-99) 116 mg/dL (70-99) Test 03/27/19 06:03 03/27/19 07:56 03/27/19 11:48 White Blood Count 4.4 x10^3/uL (4.0-11.0) Red Blood Count 3.29 x10^6/uL (3.50-5.40) Hemoglobin 10.2 g/dL (12.0-15.5) Hematocrit 30.6 % (36.0-47.0) Mean Corpuscular Volume 93 fL (79-100) Mean Corpuscular Hemoglobin 31 pg (25-35) Mean Corpuscular Hemoglobin Concent 33 g/dL (31-37) Red Cell Distribution Width 14.1 % (11.5-14.5) Platelet Count 322 x10^3/uL (140-400) Sodium Level 139 mmol/L (136-145) Potassium Level 4.0 mmol/L (3.5-5.1) Chloride Level 103 mmol/L (98-107) Carbon Dioxide Level 29 mmol/L (21-32) Anion Gap 7 (6-14) Blood Urea Nitrogen 24 mg/dL (7-20) Creatinine 1.1 mg/dL (0.6-1.0) Estimated GFR (Cockcroft-Gault) 48.7 BUN/Creatinine Ratio 22 (6-20) Glucose Level 99 mg/dL (70-99) Calcium Level 8.4 mg/dL (8.5-10.1) Total Bilirubin 0.3 mg/dL (0.2-1.0) Aspartate Amino Transf (AST/SGOT) 24 U/L (15-37) Alanine Aminotransferase (ALT/SGPT) 14 U/L (14-59) Alkaline Phosphatase 107 U/L (46-116) Total Protein 5.8 g/dL (6.4-8.2) Albumin 2.7 g/dL (3.4-5.0) Albumin/Globulin Ratio 0.9 (1.0-1.7) Glucose (Fingerstick) 103 mg/dL (70-99) 152 mg/dL (70-99) Laboratory Tests Test 03/26/19 16:45 03/26/19 20:25 03/27/19 06:03 03/27/19 07:56 Glucose (Fingerstick) 98 mg/dL (70-99) 116 mg/dL (70-99) 103 mg/dL (70-99) White Blood Count 4.4 x10^3/uL (4.0-11.0) Red Blood Count 3.29 x10^6/uL (3.50-5.40) Hemoglobin 10.2 g/dL (12.0-15.5) Hematocrit 30.6 % (36.0-47.0) Mean Corpuscular Volume 93 fL (79-100) Mean Corpuscular Hemoglobin 31 pg (25-35) Mean Corpuscular Hemoglobin Concent 33 g/dL (31-37) Red Cell Distribution Width 14.1 % (11.5-14.5) Platelet Count 322 x10^3/uL (140-400) Sodium Level 139 mmol/L (136-145) Potassium Level 4.0 mmol/L (3.5-5.1) Chloride Level 103 mmol/L (98-107) Carbon Dioxide Level 29 mmol/L (21-32) Anion Gap 7 (6-14) Blood Urea Nitrogen 24 mg/dL (7-20) Creatinine 1.1 mg/dL (0.6-1.0) Estimated GFR (Cockcroft-Gault) 48.7 BUN/Creatinine Ratio 22 (6-20) Glucose Level 99 mg/dL (70-99) Calcium Level 8.4 mg/dL (8.5-10.1) Total Bilirubin 0.3 mg/dL (0.2-1.0) Aspartate Amino Transf (AST/SGOT) 24 U/L (15-37) Alanine Aminotransferase (ALT/SGPT) 14 U/L (14-59) Alkaline Phosphatase 107 U/L (46-116) Total Protein 5.8 g/dL (6.4-8.2) Albumin 2.7 g/dL (3.4-5.0) Albumin/Globulin Ratio 0.9 (1.0-1.7) Test 03/27/19 11:48 Glucose (Fingerstick) 152 mg/dL (70-99) Medications Current Medications Aspirin (Children'S Aspirin) 324 mg 1X STAT PO Last administered on 03/19/19at 17:50; Start 03/19/19 at 17:32; Stop 03/19/19 at 17:39; Status DC Iohexol (Omnipaque 350 Mg/ml) 60 ml 1X ONCE IV ; Start 03/19/19 at 17:45; Stop 03/19/19 at 17:46; Status DC Lorazepam (Ativan Inj) 1 mg 1X STAT IVP Last administered on 03/19/19 19:33; Start 03/19/19 at 18:51; Stop 03/19/19 at 18:56; Status DC Pharmacy Consult (C.diff Med Screen By Rx) 1 each 1X ONCE [facility] ; Start 03/20/19 at 09:00; Stop 03/20/19 at 09:01; Status DC Aspirin (Ecotrin) 81 mg [id number] PO Last administered on 03/27/19 10:06; Start 03/20/19 at 08:00 Atorvastatin Calcium (Lipitor) 20 mg HS PO Last administered on 03/26/19 21:33; Start 03/19/19 at 23:00 Carbidopa/Levodopa (Sinemet 25/100) 3 tab TIDWMEALS PO Last administered on 03/27/19 10:04; Start 03/19/19 at 23:00 Clonidine HCl (Catapres) 0.1 mg PRN Q1HR PRN PO HYPERTENSION Last administered on 03/24/19 10:25; Start 03/19/19 at 22:00 Clopidogrel Bisulfate (Plavix) 75 mg HS PO Last administered on 03/26/19at 21:34; Start 03/19/19 at 23:00 Diltiazem HCl (Cardizem 24hr Cd) 180 mg DAILY PO Last administered on 03/27/19 10:03; Start 03/20/19 at 09:00 Donepezil HCl (Aricept) 10 mg HS PO Last administered on 03/26/19 21:32; Start 03/19/19 at 23:00 Ferrous Sulfate (Feosol) 325 mg DAILY PO Last administered on 03/27/19 10:06; Start 03/20/19 at 09:00 Gabapentin (Neurontin) 300 mg TID PO Last administered on 03/27/19 10:06; Start 03/19/19 at 23:00 Glipizide (Glucotrol) 5 mg DAILY PO Last administered on 03/22/19at 08:10; Start 03/20/19 at 09:00; Stop 03/22/19 at 13:43; Status DC Hydralazine HCl (Apresoline) 25 mg BIDWMEALS PO Last administered on 03/24/19 09:07; Start 03/19/19 at 23:00; Stop 03/24/19 at 11:55; Status DC Levothyroxine Sodium (Synthroid) 150 mcg DAILY06 PO Last administered on 03/27/19 05:23; Start 03/20/19 at 06:00 Lidocaine (Lidoderm) 1 patch HS TP Last administered on 03/26/19at 21:36; Start 03/19/19 at 23:00 Lisinopril (Prinivil) 20 mg DAILY PO Last administered on 03/23/19 09:25; Start 03/20/19 at 09:00; Stop 03/23/19 at 11:36; Status DC Lorazepam (Ativan) 0.5 mg TIDWMEALS PO Last administered on 03/27/19 10:05; Start 03/19/19 at 23:00 Meloxicam (Mobic) 7.5 mg DAILY PO Last administered on 03/27/19at 10:05; Start 03/20/19 at 09:00 Methocarbamol (Robaxin) 750 mg TID PO Last administered on 03/27/19 10:05; Start 03/19/19 at 23:00 Polyethylene Glycol (miraLAX PACKET) 17 gm DAILY PO Last administered on 03/27/19at 10:08; Start 03/20/19 at 09:00 Primidone (Mysoline) 100 mg HS PO Last administered on 03/26/19at 21:34; Start 03/19/19 at 23:00 Ropinirole HCl (Requip) 1 mg TID PO Last administered on 03/27/19at 10:06; Start 03/19/19 at 23:00 Zolpidem Tartrate (Ambien) 5 mg HS PO Last administered on 03/26/19at 21:32; Start 03/19/19 at 23:00 Non-Formulary Medication (Budesonide/ Formoterol Fumarate (Symbicort 80-4.5 Mcg Inhaler)) 2 puff BID IH ; Start 03/20/19 at 09:00; Status UNV Buspirone HCl (Buspar) 15 mg TID PO Last administered on 03/27/19 10:04; Start 03/19/19 at 23:00 Vitamin D (Vitamin D3) 5,000 unit DAILY PO Last administered on 03/27/19 10:06; Start 03/20/19 at 09:00 Duloxetine HCl (Cymbalta) 60 mg BID PO Last administered on 03/27/19 10:05; Start 03/19/19 at 23:00 Pantoprazole Sodium (Protonix) 40 mg DAILYAC PO Last administered on 03/20/19 09:07; Start 03/20/19 at 07:30; Stop 03/20/19 at 09:57; Status DC Lactobacillus Rhamnosus (Culturelle) 1 cap DAILY PO Last administered on 03/20/19 09:07; Start 03/20/19 at 09:00; Stop 03/20/19 at 09:56; Status DC Magnesium Oxide (Magnesium Oxide) 400 mg DAILY PO Last administered on 03/27/19 10:05; Start 03/20/19 at 09:00 Non-Formulary Medication (Melatonin ) 10 mg QHS PO ; Start 03/20/19 at 21:00; Status UNV Calcium Polycarbophil (Fibercon) 625 mg BID PO Last administered on 03/27/19 10:03; Start 03/20/19 at 09:00 Mirtazapine (Remeron) 45 mg HS PO Last administered on 03/26/19 21:35; Start 03/19/19 at 23:00 Oxycodone HCl (Roxicodone) 10 mg TID PO Last administered on 03/27/19 10:06; Start 03/19/19 at 23:00 Vitamin E (Vitamin E.) 400 unit DAILY PO Last administered on 03/27/19 10:04; Start 03/20/19 at 09:00 Budesonide (Pulmicort) 0.5 mg RTBID NEB Last administered on 03/27/19 07:35; Start 03/20/19 at 08:00 Albuterol Sulfate (Ventolin Neb Soln) 2.5 mg RTQID NEB Last administered on 03/27/19 11:35; Start 03/20/19 at 08:00 Lactobacillus Rhamnosus (Culturelle) 1 cap BID PO Last administered on 03/27/19 10:03; Start 03/20/19 at 21:00 Famotidine (Pepcid) 20 mg DAILY PO Last administered on 03/27/19 10:11; Start 03/21/19 at 09:00 Magnesium Hydroxide (Milk Of Magnesia) 2,400 mg 1X ONCE PO Last administered on 03/20/19 13:20; Start 03/20/19 at 13:30; Stop 03/20/19 at 13:31; Status DC Diclofenac Sodium (Voltaren) 1 minnie BID TP Last administered on 03/27/19 10:08; Start 03/20/19 at 13:30 Levofloxacin (Levaquin) 750 mg 1X ONCE PO Last administered on 03/21/19 13:56; Start 03/21/19 at 14:00; Stop 03/21/19 at 14:01; Status DC Dextrose (Dextrose 50%-Water Syringe) 12.5 gm PRN Q15MIN PRN IV SEE COMMENTS Last administered on 03/26/19at 11:53; Start 03/21/19 at 17:00 Ondansetron HCl (Zofran) 4 mg PRN Q6HRS PRN IVP NAUSEA/VOMITING Last administered on 03/22/19 09:45; Start 03/22/19 at 09:45 Acetaminophen (Tylenol) 650 mg PRN Q6HRS PRN PO PAIN Last administered on 03/22/19 09:46; Start 03/22/19 at 09:45 Glipizide (Glucotrol) 2.5 mg DAILY PO Last administered on 03/27/19at 10:04; Start 03/23/19 at 09:00 Senna/Docusate Sodium (Senna Plus) 1 tab PRN BID PRN PO CONSTIPATION Last administered on 03/25/19 10:09; Start 03/22/19 at 14:45 Lisinopril (Prinivil) 20 mg BID PO Last administered on 03/27/19at 10:06; Start 03/23/19 at 21:00 Lorazepam (Ativan) 0.5 mg 1X ONCE PO Last administered on 03/23/19 14:39; Start 03/23/19 at 14:45; Stop 03/23/19 at 14:46; Status DC Hydralazine HCl (Apresoline) 50 mg BIDWMEALS PO Last administered on 03/26/19at 08:55; Start 03/24/19 at 17:00; Stop 03/26/19 at 11:05; Status DC Hydralazine HCl (Apresoline) 25 mg ONCE ONCE PO Last administered on 03/24/19at 12:31; Start 03/24/19 at 12:00; Stop 03/24/19 at 12:01; Status DC Bisacodyl (Dulcolax Supp) 10 mg 1X ONCE SD ; Start 03/24/19 at 13:00; Stop 03/24/19 at 13:01; Status DC Bisacodyl (Dulcolax Supp) 10 mg PRN DAILY PRN SD CONSTIPATION; Start 03/24/19 at 13:00 Hydralazine HCl (Apresoline) 50 mg TID PO Last administered on 03/27/19at 10:0 4; Start 03/26/19 at 14:00 Isosorbide Mononitrate (Imdur) 30 mg HS PO Last administered on 03/26/19at 21:34; Start 03/26/19 at 21:00 Lorazepam (Ativan) 0.5 mg 1X ONCE PO Last administered on 03/26/19at 12:46; Start 03/26/19 at 12:30; Stop 03/26/19 at 12:31; Status DC Labetalol HCl (Trandate) 100 mg BID PO Last administered on 03/27/19at 10:03; Start 03/26/19 at 14:00 Sodium Chloride 1,000 ml @ 80 mls/hr [id number] IV Last administered on 03/26/19at 21:47; Start 03/26/19 at 21:00 Sodium Chloride 1,000 ml @ 80 mls/hr [id number] IV Last administered on 03/27/19at 10:19; Start 03/27/19 at 15:00 Iohexol (Omnipaque 350 Mg/ml) 70 ml 1X ONCE IV Last administered on 03/27/19at 09:24; Start 03/27/19 at 09:00; Stop 03/27/19 at 09:01; Status DC Info (CONTRAST GIVEN -- Rx MONITORING) 1 each PRN DAILY PRN MC SEE COMMENTS; Start 03/27/19 at 09:00; Stop 03/29/19 at 08:59 Active Scripts Active Flector (Diclofenac Epolamine) 1 Each Patch.td12 1 Patch TP BID PRN 30 Days Symbicort 80-4.5 Mcg Inhaler (Budesonide/Formoterol Fumarate) 10.2 Gm Hfa.aer.ad 2 Puff IH BID 30 Days Reported Magnesium Oxide 400 Mg Tablet 400 Mg PO DAILY Atorvastatin Calcium 20 Mg Tablet 20 Mg PO HS Miralax (Polyethylene Glycol 3350) 17 Gm Powd.pack 1 Pkt PO DAILY Oxycodone Hcl Immed.release (Oxycodone Hcl) 10 Mg Tablet 10 Mg PO TID Clonidine Hcl 0.1 Mg Tablet 0.1 Mg PO PRN Q1HR PRN For SBP> 160 May repeat 1 hour after 1st dose if SBP is still >160 Mirtazapine 45 Mg Tablet 45 Mg PO HS Glipizide 5 Mg Tablet 5 Mg PO DAILY Hydralazine Hcl 25 Mg Tablet 1 Tab PO BIDWMEALS Lisinopril 20 Mg Tablet 1 Tab PO DAILY Robaxin-750 (Methocarbamol) 750 Mg Tablet 1 Tab PO TID Meloxicam 7.5 Mg Tablet 1 Tab PO DAILY Probiotic (Lactobacillus Acidophilus) 1 Each Capsule 1 Each PO DAILY Ambien (Zolpidem Tartrate) 5 Mg Tablet 5 Mg PO HS Ferrous Sulfate 325 Mg Tablet 1 Tab PO DAILY Lorazepam 0.5 Mg Tablet 0.5 Mg PO TIDWMEALS Clopidogrel (Clopidogrel Bisulfate) 75 Mg Tablet 75 Mg PO HS Vitamin E (Vitamin E Mixed) 400 Unit Capsule 400 Unit PO DAILY Fiber (Methylcellulose) 500 Mg Tablet 500 Mg PO BID Mysoline (Primidone) 50 Mg Tablet 100 Mg PO HS Vitamin D3 (Cholecalciferol (Vitamin D3)) 5,000 Unit Tablet 1 Tab PO DAILY Melatonin 3 Mg Tablet 10 Mg PO QHS Buspirone Hcl 15 Mg Tablet 1 Tab PO TID Gabapentin (Gabapentin) 300 Mg Capsule 300 Mg PO TID Cartia Xt (Diltiazem Hcl) 180 Mg Cap.er.24h 180 Mg PO DAILY Levothyroxine Sodium 150 Mcg Tablet 1 Tab PO DAILY07 Ropinirole Hcl 1 Mg Tablet 1 Mg PO TID Donepezil Hcl 10 Mg Tablet 1 Tab PO HS Duloxetine Hcl 60 Mg Capsule.dr 60 Mg PO BID Lidoderm (Lidocaine) 700 Mg Adh..patch 1 Patch TP HS Aspir 81 (Aspirin) 81 Mg Tablet.dr 1 Tab PO DAILY Carbidopa-Levodopa 25-100 Tab (Carbidopa/Levodopa) 1 Each Tablet 3 Tab PO TIDW MEALS Nexium Capsule (Esomeprazole Magnesium) 40 Mg Capsule.dr 40 Mg PO DAILY Vitals/I & O Vital Sign - Last 24 Hours 03/26/19 03/26/19 03/26/19 03/26/19 15:00 15:57 15:58 15:58 Temp 97.9 97.9 Pulse 76 85 85 Resp 16 17 B/P (MAP) 156/90 (112) 151/64 151/64 Pulse Ox 98 O2 Delivery Room Air Room Air 03/26/19 03/26/19 03/26/19 03/26/19 16:31 17:00 19:25 20:00 Temp 97.5 97.5 Pulse 74 Resp 16 16 B/P (MAP) 143/52 (82) Pulse Ox 94 98 O2 Delivery Room Air Room Air Room Air Room Air 03/26/19 03/26/19 03/26/19 03/26/19 20:47 21:32 21:33 21:33 Pulse 74 74 Resp 18 B/P (MAP) 143/52 143/52 Pulse Ox 99 99 O2 Delivery Room Air Room Air 03/26/19 03/26/19 03/26/19 03/26/19 21:34 21:35 22:33 23:51 Temp 97.3 97.3 Pulse 74 74 81 Resp 18 16 B/P (MAP) 143/52 143/52 114/42 (66) Pulse Ox 99 94 O2 Delivery Room Air Room Air 03/27/19 03/27/19 03/27/19 03/27/19 03:47 07:00 07:00 07:36 Temp 97.3 98.3 98.3 97.3 98.3 98.3 Pulse 72 72 72 Resp 16 18 18 B/P (MAP) 104/35 (58) 153/91 (111) 139/48 (78) 134/57 (82) Pulse Ox 95 96 96 98 O2 Delivery Room Air Room Air Room Air Room Air 03/27/19 03/27/19 03/27/19 03/27/19 10:03 10:03 10:04 10:06 Pulse 72 72 72 Resp 16 B/P (MAP) 134/57 134/57 134/57 O2 Delivery Room Air 03/27/19 03/27/19 03/27/19 10:06 11:00 11:36 Temp 98.6 98.6 Pulse 72 84 Resp 18 B/P (MAP) 134/57 131/39 (69) 121/36 (64) 109/39 (62) Pulse Ox 95 O2 Delivery Room Air Room Air Intake and Output 03/26/19 03/26/19 03/27/19 15:00 23:00 07:00 Intake Total 350 ml 390 ml 560 ml Output Total 1400 ml 1600 ml 400 ml Balance -1050 ml -1210 ml 160 ml PITER BERMUDEZ MD Mar 27, 2019 13:00
--- NOTE | 2019-03-27 14:11 | PDOC ---
CARDIO Progress Notes Date and Time Date of Service 03/27/19 Time of Evaluation 1310 Subjective Subjective: No Chest Pain, No shortness of breath, No Palpitations, No Dizziness, Other (anxious about further testing tomorrow.) Comments: Patinet/daughter requesting renal artery stenting to "save the left kidney" Vitals Vitals Vital Signs Date Time Temp Pulse Resp B/P (MAP) Pulse Ox O2 Delivery O2 Flow Rate FiO2 03/27/19 13:51 16 Room Air 03/27/19 11:00 98.6 84 131/39 (69) 95 98.6 121/36 (64) 109/39 (62) Weight Weight [ ] Input and Output Intake and Output Intake and Output 03/27/19 07:00 Intake Total 1300 ml Output Total 3400 ml Balance -2100 ml Intake Oral 1300 ml Output Urine Total 3400 ml # Voids 2 Laboratory Labs Laboratory Tests Test 03/26/19 16:45 03/26/19 20:25 03/27/19 06:03 03/27/19 07:56 Glucose (Fingerstick) 98 mg/dL (70-99) 116 mg/dL (70-99) 103 mg/dL (70-99) White Blood Count 4.4 x10^3/uL (4.0-11.0) Red Blood Count 3.29 x10^6/uL (3.50-5.40) Hemoglobin 10.2 g/dL (12.0-15.5) Hematocrit 30.6 % (36.0-47.0) Mean Corpuscular Volume 93 fL (79-100) Mean Corpuscular Hemoglobin 31 pg (25-35) Mean Corpuscular Hemoglobin Concent 33 g/dL (31-37) Red Cell Distribution Width 14.1 % (11.5-14.5) Platelet Count 322 x10^3/uL (140-400) Sodium Level 139 mmol/L (136-145) Potassium Level 4.0 mmol/L (3.5-5.1) Chloride Level 103 mmol/L (98-107) Carbon Dioxide Level 29 mmol/L (21-32) Anion Gap 7 (6-14) Blood Urea Nitrogen 24 mg/dL (7-20) Creatinine 1.1 mg/dL (0.6-1.0) Estimated GFR (Cockcroft-Gault) 48.7 BUN/Creatinine Ratio 22 (6-20) Glucose Level 99 mg/dL (70-99) Calcium Level 8.4 mg/dL (8.5-10.1) Total Bilirubin 0.3 mg/dL (0.2-1.0) Aspartate Amino Transf (AST/SGOT) 24 U/L (15-37) Alanine Aminotransferase (ALT/SGPT) 14 U/L (14-59) Alkaline Phosphatase 107 U/L (46-116) Total Protein 5.8 g/dL (6.4-8.2) Albumin 2.7 g/dL (3.4-5.0) Albumin/Globulin Ratio 0.9 (1.0-1.7) Test 03/27/19 11:48 Glucose (Fingerstick) 152 mg/dL (70-99) Physical Exam HEENT: Neck Supple W Full Motion Chest: Symmetric LUNGS: Other (diminished bases) Heart: RRR Abdomen: Soft N/T Extremities: No Calf Tenderness, Other (trace LE edema) Neurology: alert, oriented, follow commands Assessment Assessment 1. Hypertension; hypotensive this afternoon 2. Possible CVA with dysarthria, weakness. improved 3. Metabolic Encephalopathy: resolved 4. HX of CVA and seizures 5. Right carotid artery stenosis: moderate per doppler 6. Renal artery stenosis; unilateral. CTA showed high-grade stenosis of left main renal artery. Medical therapy versus COUNTY HOME DEMONSTRATOR/stenting, along with r/b/a including risk of MAU discussed with patient and daughter. They are wanting to proceed with stenting of the left renal artery. 7. Hx of CV/and parkinsons/dementia 8. CAD; past stent to PLB, clinically stable 9. Hyperlipidemia 10. PAFIB; currently SR 11. PPM in situ: ([facility]) 12. 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 TEJAS KENNEDY. Supportive care MICHAEL DAILEY APRN Mar 27, 2019 14:11
[2019-03-27 15:00] VITALS: BP_SYST 104; BP_SYST 121; BP_SYST 99; BP_DIAS 33; BP_DIAS 41; BP_DIAS 46
[2019-03-27] MEDS ORDERED: IV NORMAL SALINE 500ML BAG 250 ML IV ONE (16:15)
[2019-03-27 19:48] VITALS: BP 145/45
[2019-03-27] MEDS: ATORVASTATIN CALCIUM 20 MG TABLET PO SCH (20:57)
[2019-03-27] MEDS: PRIMIDONE 50 MG TABLET PO SCH (20:58)
[2019-03-27] MEDS: ZOLPIDEM 5 MG TABLET. PO SCH (20:59)
[2019-03-27] MEDS: MIRTAZAPINE 15 MG TABLET PO SCH (21:00)
[2019-03-27] MEDS: DONEPEZIL HCL 10 MG TABLET. PO SCH (21:03)
[2019-03-27] MEDS: ISOSORBIDE MONONITRATE ER 30 MG TAB.ER.24H PO SCH (21:03)
[2019-03-27] MEDS: CLOPIDOGREL BISULFATE 75 MG TABLET PO SCH (21:03)
[2019-03-27] MEDS: LIDOCAINE (700MG/PATCH) PATCH. TP SCH (21:28)
[2019-03-27 23:51] VITALS: BP 150/49
[2019-03-28] VITALS (7 sets, daily range): BP systolic 112–168; BP diastolic 48–73
[2019-03-28] MEDS: LEVOTHYROXINE 150 MCG TABLET PO SCH (05:42)
[2019-03-28] MEDS: ALBUTEROL SULFATE 2.5 MG/3 ML NEBU. NEB SCH ×4 (07:19→20:11)
[2019-03-28] MEDS: BUDESONIDE 0.5 MG/2 ML NEBU. NEB SCH ×2 (07:20→20:11)
--- NOTE | 2019-03-28 07:25 | PDOC ---
PROGRESS NOTES History of Present Illness History of Present Illness ASSESSMENT AND PLAN: IMPRESSION: No acute intracranial findings. on ct head Probable transient ischemic attack. 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 Despite a normal renal artery to aorta velocity ratio, this suggests greater than 60% stenosis. No Doppler evidence of greater than 60% stenosis involving the right renal artery. 2.0 cm hypoechoic lesion within the mid zone of the right kidney, possibly a complex cyst with internal septation.probable artifact The possibility of a solid lesion component is not excluded sonographically. There is also a suspected simple cyst within the left kidney measuring 2.1 cm. There is no correlate for these findings on the CT angiogram dated 11/05/2017. Renal protocol CT or MRI is recommended to confirm benignity. Renal cortical lobulation, developmental or due to scarring. There is also increased right upper, convexity, a finding which can be seen with medical renal disease. High-grade stenosis of left main renal artery. on cta No focal mass lesions involving the kidneys are identified. Prior ultrasound imaging findings are most likely artifactual. admitted. consult Neurology. 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 PT, OT speech therapy. DVT prophylaxis. Full Code. home meds increase her aspirin. fluid restriction bmp today urinary na, random PT/OT Decrease glipizide to 2.5 mg po daily inc lisinopril to 20 mg po bid INC HYDRALIZINE TO 50MG PO BID DILCOLAX SUPP 10MG NOW NEPHROLOGY CONSULT 03/28 RENAL ANGIOGRAPHY ADD LABETALOL 100MG PO BID Successful PUBLIC WELFARE DIRECTOR/stent placement to the left renal artery 37 min pt exam, chart review, > 50% of time spent with exam, chart review, pt care coordination Vitals Vitals Vital Signs Date Time Temp Pulse Resp B/P (MAP) Pulse Ox O2 Delivery O2 Flow Rate FiO2 03/28/19 03:48 98.3 81 18 158/66 (96) 96 Room Air 98.3 03/27/19 21:58 2.0 Physical Exam Physical Exam PHYSICAL EXAMINATION: VITALS: Within normal limits and are stable. GENERAL: No apparent distress. Alert and oriented. HEENT: Head is normocephalic, atraumatic, pupils were equally round and reactive to light and accommodation. NECK: Supple, no JVD, no thyromegaly was noted. LUNGS: Clear to auscultation in all lung martinez without rhonchi or wheezing. HEART: RRR, S1, S2 present. Peripheral pulses intact, no obvious murmurs were noted. ABDOMEN: Soft, nontender. Positive bowel sounds no organomegaly, normal bowel sounds. EXTREMITIES: Without any cyanosis, clubbing, or edema. Pedal pulses intact, Homans sign is negative. NEUROLOGIC: confused, anxious calm PSYCHIATRIC: Normal affect, normal mood. Stable. SKIN: No ulcerations or rashes, good skin turgor, no jaundice. VASCULAR: Good capillary refill, neurovascular bundle appears to be intact. 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 Bilateral selective renal angiography 2. Successful PUBLIC WELFARE DIRECTOR/stent placement to the left renal artery MODERATE SEDATION TIME: 105 MINUTES FLUORO TIME: 25.0 MION DOSE: 85.2 GYCM2 CONTRAST: 70CC INDICATION FOR PROCEDURE The indication(s) include : Resistant hypertension and renal artery stenosis. PROCEDURE NARRATIVE After explaining the risks, benefits and alternative options, informed consent was obtained from patient. Patient was brought to the cardiac Cake Puncher and her right groin was prepped and draped in the usual fashion. 20 mL of 2% lidocaine was infiltrated into the skin and subcutaneous tissues for local anesthesia. Arterial access was obtained the right common femoral artery and a 6 Thai sheath was inserted. 6 Thai JR4 catheter was used to perform bilateral selective renal angiography. The following findings were noted. FINDINGS 1. 80% calcified stenosis involving the proximal segment of the left renal artery 2. No significant stenosis involving the right renal artery INTERVENTION The left renal artery was engaged with 6 Thai JR4 guide catheter and the stenosis in the proximal segment was crossed with a 0.014 inch NOBLE PEAK VISION Pro water guidewire. Several initial attempts to predilated this lesion using a 5.0 x 15 mm trek balloon were unsuccessful secondary to melon seeding within the lesion. Another Pro water was advanced across the lesion for a colin wire technique. The lesion was then predilated successfully with the 5.0 x 15 mm trek balloon following which this was successfully treated with a 5.0 x 15 mm Herculink elite balloon expandable stent. Follow-up angiography showed resolution of the lesion with good distal flow. Patient tolerated the procedure well. Hemostasis in the right groin was achieved using Angio-Seal. There were no immediate complications. Conclusion 1. 80% stenosis involving the left renal artery 2. Successful PUBLIC WELFARE DIRECTOR/stent placement to the left renal artery Signed by : Charles Richards, Electronically Approved : 03/28/2019 10:42:31 DICTATED and SIGNED BY: CHARLES RICHARDS MD DATE: 03/28/19 1028 Laboratory Tests Test 03/27/19 07:56 03/27/19 11:48 03/27/19 17:16 Glucose (Fingerstick) 103 mg/dL (70-99) 152 mg/dL (70-99) 109 mg/dL (70-99) Assessment and Plan Assessmemt and Plan Problems Medical Problems: (1) Acute focal neurological deficit, onset within 3-24 hours Status: Acute (2) TIA (transient ischemic attack) Status: Acute Comment Review of Relevant I have reviewed the following items dina (where applicable) has been applied. Labs Laboratory Tests Test 03/26/19 07:55 03/26/19 11:38 03/26/19 12:16 03/26/19 16:45 Glucose (Fingerstick) 105 mg/dL (70-99) 59 mg/dL (70-99) 153 mg/dL (70-99) 98 mg/dL (70-99) Test 03/26/19 20:25 03/27/19 06:03 03/27/19 07:56 03/27/19 11:48 Glucose (Fingerstick) 116 mg/dL (70-99) 103 mg/dL (70-99) 152 mg/dL (70-99) White Blood Count 4.4 x10^3/uL (4.0-11.0) Red Blood Count 3.29 x10^6/uL (3.50-5.40) Hemoglobin 10.2 g/dL (12.0-15.5) Hematocrit 30.6 % (36.0-47.0) Mean Corpuscular Volume 93 fL (79-100) Mean Corpuscular Hemoglobin 31 pg (25-35) Mean Corpuscular Hemoglobin Concent 33 g/dL (31-37) Red Cell Distribution Width 14.1 % (11.5-14.5) Platelet Count 322 x10^3/uL (140-400) Sodium Level 139 mmol/L (136-145) Potassium Level 4.0 mmol/L (3.5-5.1) Chloride Level 103 mmol/L (98-107) Carbon Dioxide Level 29 mmol/L (21-32) Anion Gap 7 (6-14) Blood Urea Nitrogen 24 mg/dL (7-20) Creatinine 1.1 mg/dL (0.6-1.0) Estimated GFR (Cockcroft-Gault) 48.7 BUN/Creatinine Ratio 22 (6-20) Glucose Level 99 mg/dL (70-99) Calcium Level 8.4 mg/dL (8.5-10.1) Total Bilirubin 0.3 mg/dL (0.2-1.0) Aspartate Amino Transf (AST/SGOT) 24 U/L (15-37) Alanine Aminotransferase (ALT/SGPT) 14 U/L (14-59) Alkaline Phosphatase 107 U/L (46-116) Total Protein 5.8 g/dL (6.4-8.2) Albumin 2.7 g/dL (3.4-5.0) Albumin/Globulin Ratio 0.9 (1.0-1.7) Test 03/27/19 17:16 Glucose (Fingerstick) 109 mg/dL (70-99) Laboratory Tests Test 03/27/19 07:56 03/27/19 11:48 03/27/19 17:16 Glucose (Fingerstick) 103 mg/dL (70-99) 152 mg/dL (70-99) 109 mg/dL (70-99) Medications Current Medications Aspirin (Children'S Aspirin) 324 mg 1X STAT PO Last administered on 03/19/19at 17:50; Start 03/19/19 at 17:32; Stop 03/19/19 at 17:39; Status DC Iohexol (Omnipaque 350 Mg/ml) 60 ml 1X ONCE IV ; Start 03/19/19 at 17:45; Stop 03/19/19 at 17:46; Status DC Lorazepam (Ativan Inj) 1 mg 1X STAT IVP Last administered on 03/19/19 19:33; Start 03/19/19 at 18:51; Stop 03/19/19 at 18:56; Status DC Pharmacy Consult (C.diff Med Screen By Rx) 1 each 1X ONCE [facility] ; Start 03/20/19 at 09:00; Stop 03/20/19 at 09:01; Status DC Aspirin (Ecotrin) 81 mg DAILYWBKFT PO Last administered on 03/27/19 10:06; Start 03/20/19 at 08:00 Atorvastatin Calcium (Lipitor) 20 mg HS PO Last administered on 03/27/19 20:57; Start 03/19/19 at 23:00 Carbidopa/Levodopa (Sinemet 25/) 3 tab TIDWMEALS PO Last administered on 03/27/19 17:23; Start 03/19/19 at 23:00 Clonidine HCl (Catapres) 0.1 mg PRN Q1HR PRN PO HYPERTENSION Last administered on 03/24/19 10:25; Start 03/19/19 at 22:00 Clopidogrel Bisulfate (Plavix) 75 mg HS PO Last administered on 03/27/19 21:03; Start 03/19/19 at 23:00 Diltiazem HCl (Cardizem 24hr Cd) 180 mg DAILY PO Last administered on 03/27/19 10:03; Start 03/20/19 at 09:00 Donepezil HCl (Aricept) 10 mg HS PO Last administered on 03/27/19 21:03; Start 03/19/19 at 23:00 Ferrous Sulfate (Feosol) 325 mg DAILY PO Last administered on 03/27/19 10:06; Start 03/20/19 at 09:00 Gabapentin (Neurontin) 300 mg TID PO Last administered on 03/27/19 21:01; Start 03/19/19 at 23:00 Glipizide (Glucotrol) 5 mg DAILY PO Last administered on 03/22/19 08:10; Start 03/20/19 at 09:00; Stop 03/22/19 at 13:43; Status DC Hydralazine HCl (Apresoline) 25 mg BIDWMEALS PO Last administered on 11/18/19at 09:07; Start 03/19/19 at 23:00; Stop 03/24/19 at 11:55; Status DC Levothyroxine Sodium (Synthroid) 150 mcg DAILY06 PO Last administered on 03/27/19at 05:23; Start 03/20/19 at 06:00 Lidocaine (Lidoderm) 1 patch HS TP Last administered on 03/27/19 21:28; Start 03/19/19 at 23:00 Lisinopril (Prinivil) 20 mg DAILY PO Last administered on 03/23/19 09:25; Start 03/20/19 at 09:00; Stop 03/23/19 at 11:36; Status DC Lorazepam (Ativan) 0.5 mg TIDWMEALS PO Last administered on 03/27/19 17:23; Start 03/19/19 at 23:00 Meloxicam (Mobic) 7.5 mg DAILY PO Last administered on 03/27/19 10:05; Start 03/20/19 at 09:00 Methocarbamol (Robaxin) 750 mg TID PO Last administered on 03/27/19 21:01; Start 03/19/19 at 23:00 Polyethylene Glycol (miraLAX PACKET) 17 gm DAILY PO Last administered on 03/27/19 10:08; Start 03/20/19 at 09:00 Primidone (Mysoline) 100 mg HS PO Last administered on 03/27/19 20:58; Start 03/19/19 at 23:00 Ropinirole HCl (Requip) 1 mg TID PO Last administered on 03/27/19 21:00; Start 03/19/19 at 23:00 Zolpidem Tartrate (Ambien) 5 mg HS PO Last administered on 03/27/19 20:59; Start 03/19/19 at 23:00 Non-Formulary Medication (Budesonide/ Formoterol Fumarate (Symbicort 80-4.5 Mcg Inhaler)) 2 puff BID IH ; Start 03/20/19 at 09:00; Status UNV Buspirone HCl (Buspar) 15 mg TID PO Last administered on 03/27/19 21:01; Start 03/19/19 at 23:00 Vitamin D (Vitamin D3) 5,000 unit DAILY PO Last administered on 03/27/19 10:06; Start 03/20/19 at 09:00 Duloxetine HCl (Cymbalta) 60 mg BID PO Last administered on 03/27/19 21:02; Start 03/19/19 at 23:00 Pantoprazole Sodium (Protonix) 40 mg DAILYAC PO Last administered on 03/20/19 09:07; Start 03/20/19 at 07:30; Stop 03/20/19 at 09:57; Status DC Lactobacillus Rhamnosus (Culturelle) 1 cap DAILY PO Last administered on 03/20/19 09:07; Start 03/20/19 at 09:00; Stop 03/20/19 at 09:56; Status DC Magnesium Oxide (Magnesium Oxide) 400 mg DAILY PO Last administered on 03/27/19 10:05; Start 03/20/19 at 09:00 Non-Formulary Medication (Melatonin ) 10 mg QHS PO ; Start 03/20/19 at 21:00; Status UNV Calcium Polycarbophil (Fibercon) 625 mg BID PO Last administered on 03/27/19 21:03; Start 03/20/19 at 09:00 Mirtazapine (Remeron) 45 mg HS PO Last administered on 03/27/19 21:00; Start 03/19/19 at 23:00 Oxycodone HCl (Roxicodone) 10 mg TID PO Last administered on 03/27/19 20:58; Start 03/19/19 at 23:00 Vitamin E (Vitamin E.) 400 unit DAILY PO Last administered on 03/27/19 10:04; Start 03/20/19 at 09:00 Budesonide (Pulmicort) 0.5 mg RTBID NEB Last administered on 03/28/19 07:20; Start 03/20/19 at 08:00 Albuterol Sulfate (Ventolin Neb Soln) 2.5 mg RTQID NEB Last administered on 03/28/19 07:19; Start 03/20/19 at 08:00 Lactobacillus Rhamnosus (Culturelle) 1 cap BID PO Last administered on 03/27/19 21:00; Start 03/20/19 at 21:00 Famotidine (Pepcid) 20 mg DAILY PO Last administered on 03/27/19at 10:11; Start 03/21/19 at 09:00 Magnesium Hydroxide (Milk Of Magnesia) 2,400 mg 1X ONCE PO Last administered on 03/20/19 13:20; Start 03/20/19 at 13:30; Stop 03/20/19 at 13:31; Status DC Diclofenac Sodium (Voltaren) 1 minnie BID TP Last administered on 03/27/19 21:30; Start 03/20/19 at 13:30 Levofloxacin (Levaquin) 750 mg 1X ONCE PO Last administered on 03/21/19 13:56; Start 03/21/19 at 14:00; Stop 03/21/19 at 14:01; Status DC Dextrose (Dextrose 50%-Water Syringe) 12.5 gm PRN Q15MIN PRN IV SEE COMMENTS Last administered on 03/26/19 11:53; Start 03/21/19 at 17:00 Ondansetron HCl (Zofran) 4 mg PRN Q6HRS PRN IVP NAUSEA/VOMITING Last administered on 03/22/19at 09:45; Start 03/22/19 at 09:45 Acetaminophen (Tylenol) 650 mg PRN Q6HRS PRN PO PAIN Last administered on 03/22/19 09:46; Start 03/22/19 at 09:45 Glipizide (Glucotrol) 2.5 mg DAILY PO Last administered on 03/27/19 10:04; Start 03/23/19 at 09:00 Senna/Docusate Sodium (Senna Plus) 1 tab PRN BID PRN PO CONSTIPATION Last administered on 03/25/19 10:09; Start 03/22/19 at 14:45 Lisinopril (Prinivil) 20 mg BID PO Last administered on 03/27/19 21:01; Start 03/23/19 at 21:00 Lorazepam (Ativan) 0.5 mg 1X ONCE PO Last administered on 03/23/19at 14:39; Start 03/23/19 at 14:45; Stop 03/23/19 at 14:46; Status DC Hydralazine HCl (Apresoline) 50 mg BIDWMEALS PO Last administered on 03/26/19 08:55; Start 03/24/19 at 17:00; Stop 03/26/19 at 11:05; Status DC Hydralazine HCl (Apresoline) 25 mg ONCE ONCE PO Last administered on 03/24/19at 12:31; Start 03/24/19 at 12:00; Stop 03/24/19 at 12:01; Status DC Bisacodyl (Dulcolax Supp) 10 mg 1X ONCE [place] ; Start 03/24/19 at 13:00; Stop 03/24/19 at 13:01; Status DC Bisacodyl (Dulcolax Supp) 10 mg PRN DAILY PRN [place] CONSTIPATION; Start 03/24/19 at 13:00 Hydralazine HCl (Apresoline) 50 mg TID PO Last administered on 03/27/19at 21:00; Start 03/26/19 at 14:00 Isosorbide Mononitrate (Imdur) 30 mg HS PO Last administered on 03/27/19at 21:03; Start 03/26/19 at 21:00 Lorazepam (Ativan) 0.5 mg 1X ONCE PO Last administered on 03/26/19at 12:46; S tart 03/26/19 at 12:30; Stop 03/26/19 at 12:31; Status DC Labetalol HCl (Trandate) 100 mg BID PO Last administered on 03/27/19at 10:03; Start 03/26/19 at 14:00; Stop 03/27/19 at 14:10; Status DC Sodium Chloride 1,000 ml @ 80 mls/hr [id number] IV Last administered on 03/26/19at 21:47; Start 03/26/19 at 21:00; Stop 03/27/19 at 18:31; Status DC Sodium Chloride 1,000 ml @ 80 mls/hr [id number] IV Last administered on 03/27/19at 10:30; Start 03/27/19 at 15:00 Iohexol (Omnipaque 350 Mg/ml) 70 ml 1X ONCE IV Last administered on 03/27/19at 09:24; Start 03/27/19 at 09:00; Stop 03/27/19 at 09:01; Status DC Info (CONTRAST GIVEN -- Rx MONITORING) 1 each PRN DAILY PRN [facility] SEE COMMENTS; Start 03/27/19 at 09:00; Stop 03/29/19 at 08:59 Sodium Chloride 250 ml @ 500 mls/hr 1X ONCE IV Last administered on 03/27/19at 14:30; Start 03/27/19 at 16:15; Stop 03/27/19 at 16:44; Status DC Active Scripts Active Flector (Diclofenac Epolamine) 1 Each Patch.td12 1 Patch TP BID PRN 30 Days Symbicort 80-4.5 Mcg Inhaler (Budesonide/Formoterol Fumarate) 10.2 Gm Hfa.aer.ad 2 Puff IH BID 30 Days Reported Magnesium Oxide 400 Mg Tablet 400 Mg PO DAILY Atorvastatin Calcium 20 Mg Tablet 20 Mg PO HS Miralax (Polyethylene Glycol 3350) 17 Gm Powd.pack 1 Pkt PO DAILY Oxycodone Hcl Immed.release (Oxycodone Hcl) 10 Mg Tablet 10 Mg PO TID Clonidine Hcl 0.1 Mg Tablet 0.1 Mg PO PRN Q1HR PRN For SBP> 160 May repeat 1 hour after 1st dose if SBP is still >160 Mirtazapine 45 Mg Tablet 45 Mg PO HS Glipizide 5 Mg Tablet 5 Mg PO DAILY Hydralazine Hcl 25 Mg Tablet 1 Tab PO BIDWMEALS Lisinopril 20 Mg Tablet 1 Tab PO DAILY Robaxin-750 (Methocarbamol) 750 Mg Tablet 1 Tab PO TID Meloxicam 7.5 Mg Tablet 1 Tab PO DAILY Probiotic (Lactobacillus Acidophilus) 1 Each Capsule 1 Each PO DAILY Ambien (Zolpidem Tartrate) 5 Mg Tablet 5 Mg PO HS Ferrous Sulfate 325 Mg Tablet 1 Tab PO DAILY Lorazepam 0.5 Mg Tablet 0.5 Mg PO TIDWMEALS Clopidogrel (Clopidogrel Bisulfate) 75 Mg Tablet 75 Mg PO HS Vitamin E (Vitamin E Mixed) 400 Unit Capsule 400 Unit PO DAILY Fiber (Methylcellulose) 500 Mg Tablet 500 Mg PO BID Mysoline (Primidone) 50 Mg Tablet 100 Mg PO HS Vitamin D3 (Cholecalciferol (Vitamin D3)) 5,000 Unit Tablet 1 Tab PO DAILY Melatonin 3 Mg Tablet 10 Mg PO QHS Buspirone Hcl 15 Mg Tablet 1 Tab PO TID Gabapentin (Gabapentin) 300 Mg Capsule 300 Mg PO TID Cartia Xt (Diltiazem Hcl) 180 Mg Cap.er.24h 180 Mg PO DAILY Levothyroxine Sodium 150 Mcg Tablet 1 Tab PO DAILY07 Ropinirole Hcl 1 Mg Tablet 1 Mg PO TID Donepezil Hcl 10 Mg Tablet 1 Tab PO HS Duloxetine Hcl 60 Mg Capsule. 60 Mg PO BID Lidoderm (Lidocaine) 700 Mg Adh..patch 1 Patch TP HS Aspir 81 (Aspirin) 81 Mg Tablet. 1 Tab PO DAILY Carbidopa-Levodopa 25-100 Tab (Carbidopa/Levodopa) 1 Each Tablet 3 Tab PO TIDWMEALS Nexium Capsule (Esomeprazole Magnesium) 40 Mg Capsule. 40 Mg PO DAILY Vitals/I & O Vital Sign - Last 24 Hours 03/27/19 03/27/19 03/27/19 03/27/19 07:36 08:00 10:03 10:03 Pulse 72 72 B/P (MAP) 134/57 134/57 Pulse Ox 98 O2 Delivery Room Air Room Air 03/27/19 03/27/19 03/27/19 03/27/19 10:04 10:06 10:06 11:00 Temp 98.6 98.6 Pulse 72 72 84 Resp 16 18 B/P (MAP) 134/57 134/57 131/39 (69) 121/36 (64) 109/39 (62) Pulse Ox 95 O2 Delivery Room Air Room Air 03/27/19 03/27/19 03/27/19 03/27/19 11:06 11:36 13:51 14:51 Resp 16 16 16 Pulse Ox 96 O2 Delivery Room Air Room Air Room Air Room Air 03/27/19 03/27/19 03/27/19 03/27/19 15:00 15:31 19:48 20:00 Temp 98.4 98.3 98.4 98.3 Pulse 85 69 Resp 18 18 B/P (MAP) 121/41 (67) 145/45 (78) 99/33 (55) 104/46 (65) Pulse Ox 96 97 O2 Delivery Room Air Room Air Nasal Cannula Room Air O2 Flow Rate 2.0 03/27/19 03/27/19 03/27/19 03/27/19 20:33 21:00 21:01 21:03 Pulse 69 69 69 B/P (MAP) 145/45 145/45 145/45 O2 Delivery Room Air 03/27/19 03/27/19 03/28/19 21:58 23:51 03:48 Temp 98.4 98.3 98.4 98.3 Pulse 87 81 Resp 18 B/P (MAP) 150/49 (82) 158/66 (96) Pulse Ox 95 96 O2 Delivery Room Air Room Air Room Air O2 Flow Rate 2.0 Intake and Output 03/27/19 03/27/19 03/28/19 15:00 23:00 07:00 Intake Total 300 ml 0 ml Output Total 450 ml 1400 ml 450 ml Balance -450 ml -1100 ml -450 ml PITER BERMUDEZ MD Mar 28, 2019 07:25
[2019-03-28] MEDS ORDERED: LIDOCAINE 1% Multi-Dose 20 ML VIAL. ONE (07:53)
[2019-03-28] MEDS ORDERED: IODIXANOL 320 MG/ML 100 ML VIAL. ONE ×3 (07:53→09:53)
[2019-03-28] MEDS ORDERED: MIDAZOLAM HCL/PF 2 MG/2 ML VIAL. ONE ×2 (08:01→08:49)
[2019-03-28] MEDS ORDERED: fentaNYL PF VIAL 100 MCG/2 ML VIAL ONE ×3 (08:01→09:46)
[2019-03-28] MEDS ORDERED: HEPARIN for IV BOLUS 10,000 UNIT/10 ML VIAL. ONE (08:58)
[2019-03-28] MEDS ORDERED: fentaNYL PF VIAL 100 MCG/2 ML VIAL IV ONE ×2 (09:00→10:45)
[2019-03-28] MEDS: glipiZIDE 5 MG TABLET PO SCH (09:00)
[2019-03-28] MEDS ORDERED: MIDAZOLAM HCL/PF 2 MG/2 ML VIAL. IV ONE ×2 (09:00→10:45)
[2019-03-28] MEDS ORDERED: LIDOCAINE 1% Multi-Dose 20 ML VIAL. INJ ONE (09:00)
[2019-03-28] MEDS ORDERED: IODIXANOL 320 MG/ML 100 ML VIAL. IART ONE (09:00)
[2019-03-28] MEDS ORDERED: hydrALAZINE 20 MG/ML VIAL. ONE (09:13)
[2019-03-28] MEDS ORDERED: HEPARIN for IV BOLUS 10,000 UNIT/10 ML VIAL. IV ONE (09:15)
[2019-03-28] MEDS ORDERED: hydrALAZINE 20 MG/ML VIAL. IVP ONE ×2 (09:30→10:15)
[2019-03-28] MEDS ORDERED: diphenhydrAMINE 50 MG/ML VIAL ONE (09:38)
[2019-03-28] MEDS ORDERED: diphenhydrAMINE 50 MG/ML VIAL IVP ONE (09:45)
--- NOTE | 2019-03-28 09:50 | PDOC ---
PROGRESS NOTES Assessment Problems Medical Problems: (1) Acute focal neurological deficit, onset within 3-24 hours Status: Acute (2) TIA (transient ischemic attack) Status: Acute Dysarthria, chronic intermittent. Right leg weakness, resolved. Metabolic encephalopathy. Epilepsy Anisocoria Parkinson's diagnosis, looks more like essential tremor on my exam AFib. CAD, s/p stent placement. HTN, Blood pressure still running high at times. HLD. Cognitive impairment. Pacemaker. Right renal lesion, left renal artery stenosis, having angioplasty today 03/28 Plan Continue Plavix and aspirin Continue Sinemet, is also on primidone, donepezil, and ropinirole. OT/PT. FU with PCP. SNU Subjective No neurological complaints Objective Vital Signs Date Time Temp Pulse Resp B/P (MAP) Pulse Ox O2 Delivery O2 Flow Rate FiO2 03/28/19 09:14 80 03/28/19 07:37 97 Room Air 03/28/19 03:48 98.3 18 158/66 (96) 98.3 03/27/19 21:58 2.0 Intake and Output 03/28/19 07:00 Intake Total 300 ml Output Total 2300 ml Balance -2000 ml Intake Oral 300 ml Output Urine Total 2300 ml PHYSICAL EXAM Alert. Oriented to time, place and person. Left pupil 2-3 mm, right 1.5 mm. EOMI. CN: no focal findings. Muscle tone: normal. Muscle strength: 4/5 DTR: 2+ Plantar reflex: flexor Gait: does well with walker. Sensory exam: no abnormal findings. No cerebellar signs elicited. Postural tremor, no resting tremor Review of Relevant I have reviewed the following items dina (where applicable) has been applied. Labs Laboratory Tests Test 03/26/19 11:38 03/26/19 12:16 03/26/19 16:45 03/26/19 20:25 Glucose (Fingerstick) 59 mg/dL (70-99) 153 mg/dL (70-99) 98 mg/dL (70-99) 116 mg/dL (70-99) Test 03/27/19 06:03 03/27/19 07:56 03/27/19 11:48 03/27/19 17:16 White Blood Count 4.4 x10^3/uL (4.0-11.0) Red Blood Count 3.29 x10^6/uL (3.50-5.40) Hemoglobin 10.2 g/dL (12.0-15.5) Hematocrit 30.6 % (36.0-47.0) Mean Corpuscular Volume 93 fL (79-100) Mean Corpuscular Hemoglobin 31 pg (25-35) Mean Corpuscular Hemoglobin Concent 33 g/dL (31-37) Red Cell Distribution Width 14.1 % (11.5-14.5) Platelet Count 322 x10^3/uL (140-400) Sodium Level 139 mmol/L (136-145) Potassium Level 4.0 mmol/L (3.5-5.1) Chloride Level 103 mmol/L (98-107) Carbon Dioxide Level 29 mmol/L (21-32) Anion Gap 7 (6-14) Blood Urea Nitrogen 24 mg/dL (7-20) Creatinine 1.1 mg/dL (0.6-1.0) Estimated GFR (Cockcroft-Gault) 48.7 BUN/Creatinine Ratio 22 (6-20) Glucose Level 99 mg/dL (70-99) Calcium Level 8.4 mg/dL (8.5-10.1) Total Bilirubin 0.3 mg/dL (0.2-1.0) Aspartate Amino Transf (AST/SGOT) 24 U/L (15-37) Alanine Aminotransferase (ALT/SGPT) 14 U/L (14-59) Alkaline Phosphatase 107 U/L (46-116) Total Protein 5.8 g/dL (6.4-8.2) Albumin 2.7 g/dL (3.4-5.0) Albumin/Globulin Ratio 0.9 (1.0-1.7) Glucose (Fingerstick) 103 mg/dL (70-99) 152 mg/dL (70-99) 109 mg/dL (70-99) Test 03/28/19 08:14 Glucose (Fingerstick) 94 mg/dL (70-99) Laboratory Tests Test 03/27/19 11:48 03/27/19 17:16 03/28/19 08:14 Glucose (Fingerstick) 152 mg/dL (70-99) 109 mg/dL (70-99) 94 mg/dL (70-99) Medications Current Medications Aspirin (Children'S Aspirin) 324 mg 1X STAT PO Last administered on 03/19/19at 17:50; Start 03/19/19 at 17:32; Stop 03/19/19 at 17:39; Status DC Iohexol (Omnipaque 350 Mg/ml) 60 ml 1X ONCE IV ; Start 03/19/19 at 17:45; Stop 03/19/19 at 17:46; Status DC Lorazepam (Ativan Inj) 1 mg 1X STAT IVP Last administered on 03/19/19at 19:33; Start 03/19/19 at 18:51; Stop 03/19/19 at 18:56; Status DC Pharmacy Consult (C.diff Med Screen By Rx) 1 each 1X ONCE [facility] ; Start 03/20/19 at 09:00; Stop 03/20/19 at 09:01; Status DC Aspirin (Ecotrin) 81 mg DAILYWBKFT PO Last administered on 03/27/19 10:06; Start 03/20/19 at 08:00 Atorvastatin Calcium (Lipitor) 20 mg HS PO Last administered on 03/27/19at 20:57; Start 03/19/19 at 23:00 Carbidopa/Levodopa (Sinemet 25/100) 3 tab TIDWMEALS PO Last administered on 03/27/19 17:23; Start 03/19/19 at 23:00 Clonidine HCl (Catapres) 0.1 mg PRN Q1HR PRN PO HYPERTENSION Last administered on 03/24/19at 10:25; Start 03/19/19 at 22:00 Clopidogrel Bisulfate (Plavix) 75 mg HS PO Last administered on 03/27/19 21:03; Start 03/19/19 at 23:00 Diltiazem HCl (Cardizem 24hr Cd) 180 mg DAILY PO Last administered on 03/27/19 10:03; Start 03/20/19 at 09:00 Donepezil HCl (Aricept) 10 mg HS PO Last administered on 03/27/19 21:03; Start 03/19/19 at 23:00 Ferrous Sulfate (Feosol) 325 mg DAILY PO Last administered on 03/27/19 10:06; Start 03/20/19 at 09:00 Gabapentin (Neurontin) 300 mg TID PO Last administered on 03/27/19at 21:01; Start 03/19/19 at 23:00 Glipizide (Glucotrol) 5 mg DAILY PO Last administered on 03/22/19 08:10; Start 03/20/19 at 09:00; Stop 03/22/19 at 13:43; Status DC Hydralazine HCl (Apresoline) 25 mg BIDWMEALS PO Last administered on 03/24/19 09:07; Start 03/19/19 at 23:00; Stop 03/24/19 at 11:55; Status DC Levothyroxine Sodium (Synthroid) 150 mcg DAILY06 PO Last administered on 03/27/19 05:23; Start 03/20/19 at 06:00 Lidocaine (Lidoderm) 1 patch HS TP Last administered on 03/27/19 21:28; Start 03/19/19 at 23:00 Lisinopril (Prinivil) 20 mg DAILY PO Last administered on 03/23/19 09:25; Start 03/20/19 at 09:00; Stop 03/23/19 at 11:36; Status DC Lorazepam (Ativan) 0.5 mg TIDWMEALS PO Last administered on 03/27/19 17:23; Start 03/19/19 at 23:00 Meloxicam (Mobic) 7.5 mg DAILY PO Last administered on 03/27/19 10:05; Start 03/20/19 at 09:00 Methocarbamol (Robaxin) 750 mg TID PO Last administered on 03/27/19 21:01; Start 03/19/19 at 23:00 Polyethylene Glycol (miraLAX PACKET) 17 gm DAILY PO Last administered on 03/27/19 10:08; Start 03/20/19 at 09:00 Primidone (Mysoline) 100 mg HS PO Last administered on 03/27/19 20:58; Start 03/19/19 at 23:00 Ropinirole HCl (Requip) 1 mg TID PO Last administered on 03/27/19 21:00; Start 03/19/19 at 23:00 Zolpidem Tartrate (Ambien) 5 mg HS PO Last administered on 03/27/19 20:59; Start 03/19/19 at 23:00 Non-Formulary Medication (Budesonide/ Formoterol Fumarate (Symbicort 80-4.5 Mcg Inhaler)) 2 puff BID IH ; Start 03/20/19 at 09:00; Status UNV Buspirone HCl (Buspar) 15 mg TID PO Last administered on 03/27/19 21:01; Start 03/19/19 at 23:00 Vitamin D (Vitamin D3) 5,000 unit DAILY PO Last administered on 03/27/19 10:06; Start 03/20/19 at 09:00 Duloxetine HCl (Cymbalta) 60 mg BID PO Last administered on 03/27/19 21:02; Start 03/19/19 at 23:00 Pantoprazole Sodium (Protonix) 40 mg DAILYAC PO Last administered on 03/20/19 09:07; Start 03/20/19 at 07:30; Stop 03/20/19 at 09:57; Status DC Lactobacillus Rhamnosus (Culturelle) 1 cap DAILY PO Last administered on 03/20/19 09:07; Start 03/20/19 at 09:00; Stop 03/20/19 at 09:56; Status DC Magnesium Oxide (Magnesium Oxide) 400 mg DAILY PO Last administered on 03/27/19at 10:05; Start 03/20/19 at 09:00 Non-Formulary Medication (Melatonin ) 10 mg QHS PO ; Start 03/20/19 at 21:00; Status UNV Calcium Polycarbophil (Fibercon) 625 mg BID PO Last administered on 03/27/19at 21:03; Start 03/20/19 at 09:00 Mirtazapine (Remeron) 45 mg HS PO Last administered on 03/27/19at 21:00; Start 03/19/19 at 23:00 Oxycodone HCl (Roxicodone) 10 mg TID PO Last administered on 03/27/19at 20:58; Start 03/19/19 at 23:00 Vitamin E (Vitamin E.) 400 unit DAILY PO Last administered on 03/27/19 10:04; Start 03/20/19 at 09:00 Budesonide (Pulmicort) 0.5 mg RTBID NEB Last administered on 03/28/19 07:20; Start 03/20/19 at 08:00 Albuterol Sulfate (Ventolin Neb Soln) 2.5 mg RTQID NEB Last administered on 03/28/19 07:19; Start 03/20/19 at 08:00 Lactobacillus Rhamnosus (Culturelle) 1 cap BID PO Last administered on 03/27/19 21:00; Start 03/20/19 at 21:00 Famotidine (Pepcid) 20 mg DAILY PO Last administered on 03/27/19 10:11; Start 03/21/19 at 09:00 Magnesium Hydroxide (Milk Of Magnesia) 2,400 mg 1X ONCE PO Last administered on 03/20/19 13:20; Start 03/20/19 at 13:30; Stop 03/20/19 at 13:31; Status DC Diclofenac Sodium (Voltaren) 1 minnie BID TP Last administered on 03/27/19 21:30; Start 03/20/19 at 13:30 Levofloxacin (Levaquin) 750 mg 1X ONCE PO Last administered on 03/21/19 13:56; Start 03/21/19 at 14:00; Stop 03/21/19 at 14:01; Status DC Dextrose (Dextrose 50%-Water Syringe) 12.5 gm PRN Q15MIN PRN IV SEE COMMENTS Last administered on 03/26/19 11:53; Start 03/21/19 at 17:00 Ondansetron HCl (Zofran) 4 mg PRN Q6HRS PRN IVP NAUSEA/VOMITING Last administered on 03/22/19 09:45; Start 03/22/19 at 09:45 Acetaminophen (Tylenol) 650 mg PRN Q6HRS PRN PO PAIN Last administered on 03/22/19 09:46; Start 03/22/19 at 09:45 Glipizide (Glucotrol) 2.5 mg DAILY PO Last administered on 03/27/19 10:04; Start 03/23/19 at 09:00 Senna/Docusate Sodium (Senna Plus) 1 tab PRN BID PRN PO CONSTIPATION Last administered on 03/25/19 10:09; Start 03/22/19 at 14:45 Lisinopril (Prinivil) 20 mg BID PO Last administered on 03/27/19 21:01; Start 03/23/19 at 21:00 Lorazepam (Ativan) 0.5 mg 1X ONCE PO Last administered on 03/23/19 14:39; Start 03/23/19 at 14:45; Stop 03/23/19 at 14:46; Status DC Hydralazine HCl (Apresoline) 50 mg BIDWMEALS PO Last administered on 03/26/19at 08:55; Start 03/24/19 at 17:00; Stop 03/26/19 at 11:05; Status DC Hydralazine HCl (Apresoline) 25 mg ONCE ONCE PO Last administered on 03/24/19at 12:31; Start 03/24/19 at 12:00; Stop 03/24/19 at 12:01; Status DC Bisacodyl (Dulcolax Supp) 10 mg 1X ONCE [place] ; Start 03/24/19 at 13:00; Stop 03/24/19 at 13:01; Status DC Bisacodyl (Dulcolax Supp) 10 mg PRN DAILY PRN [place] CONSTIPATION; Start 03/24/19 at 13:00 Hydralazine HCl (Apresoline) 50 mg TID PO Last administered on 03/27/19at 21:00; Start 03/26/19 at 14:00 Isosorbide Mononitrate (Imdur) 30 mg HS PO Last administered on 03/27/19at 21:03; Start 03/26/19 at 21:00 Lorazepam (Ativan) 0.5 mg 1X ONCE PO Last administered on 03/26/19at 12:46; Start 03/26/19 at 12:30; Stop 03/26/19 at 12:31; Status DC Labetalol HCl (Trandate) 100 mg BID PO Last administered on 03/27/19at 10:03; Start 03/26/19 at 14:00; Stop 03/27/19 at 14:10; Status DC Sodium Chloride 1,000 ml @ 80 mls/hr [id number] IV Last administered on 03/26/19at 21:47; Start 03/26/19 at 21:00; Stop 03/27/19 at 18:31; Status DC Sodium Chloride 1,000 ml @ 80 mls/hr [id number] IV Last administered on 03/27/19at 10:30; Start 03/27/19 at 15:00 Iohexol (Omnipaque 350 Mg/ml) 70 ml 1X ONCE IV Last administered on 03/27/19at 09:24; Start 03/27/19 at 09:00; Stop 03/27/19 at 09:01; Status DC Info (CONTRAST GIVEN -- Rx MONITORING) 1 each PRN DAILY PRN [facility] SEE COMMENTS; Start 03/27/19 at 09:00; Stop 03/29/19 at 08:59 Sodium Chloride 250 ml @ 500 mls/hr 1X ONCE IV Last administered on 03/27/19at 14:30; Start 03/27/19 at 16:15; Stop 03/27/19 at 16:44; Status DC Iodixanol (Visipaque 320) 100 ml STK-MED ONCE .ROUTE ; Start 03/28/19 at 07:53; Stop 03/28/19 at 07:53; Status DC Lidocaine HCl (Lidocaine 1% 20ml Vial) 20 ml STK-MED ONCE .ROUTE ; Start 03/28/19 at 07:53; Stop 03/28/19 at 07:54; Status DC Heparin Sodium/ Sodium Chloride 1,000 ml @ As Directed STK-MED ONCE .ROUTE ; Start 03/28/19 at 07:53; Stop 03/28/19 at 07:54; Status DC Fentanyl Citrate (Fentanyl 2ml Vial) 100 mcg STK-MED ONCE .ROUTE ; Start 03/28/19 at 08:01; Stop 03/28/19 at 08:01; Status DC Midazolam HCl (Versed) 2 mg STK-MED ONCE .ROUTE ; Start 03/28/19 at 08:01; Stop 03/28/19 at 08:02; Status DC Midazolam HCl (Versed) 2 mg STK-MED ONCE .ROUTE ; Start 03/28/19 at 08:49; Stop 03/28/19 at 08:49; Status DC Heparin Sodium/ Sodium Chloride (HEPARIN for ARTERIAL LINE FLUSH) 1,000 unit 1X ONCE IART Last administered on 03/28/19at 08:56; Start 03/28/19 at 09:00; Stop 03/28/19 at 09:01; Status DC Heparin Sodium/ Sodium Chloride (HEPARIN for ARTERIAL LINE FLUSH) 1,000 unit 1X ONCE IART Last administered on 03/28/19at 08:56; Start 03/28/19 at 09:00; Stop 03/28/19 at 09:01; Status DC Midazolam HCl (Versed) 2 mg 1X ONCE IV ; Start 03/28/19 at 09:00; Stop 03/28/19 at 09:01; Status DC Fentanyl Citrate (Fentanyl 2ml Vial) 100 mcg 1X ONCE IV ; Start 03/28/19 at 09:00; Stop 03/28/19 at 09:01; Status DC Iodixanol (Visipaque 320) 100 ml 1X ONCE IART ; Start 03/28/19 at 09:00; Stop 03/28/19 at 09:01; Status DC Lidocaine HCl (Lidocaine 1% 20ml Vial) 20 ml 1X ONCE INJ Last administered on 03/28/19at 08:56; Start 03/28/19 at 09:00; Stop 03/28/19 at 09:01; Status DC Heparin Sodium (Porcine) (Heparin Sodium) 10,000 unit STK-MED ONCE .ROUTE ; Start 03/28/19 at 08:58; Stop 03/28/19 at 08:58; Status DC Heparin Sodium (Porcine) (Heparin Sodium) 5,000 unit 1X ONCE IV ; Start 03/28/19 at 09:15; Stop 03/28/19 at 09:16; Status DC Fentanyl Citrate (Fentanyl 2ml Vial) 100 mcg STK-MED ONCE .ROUTE ; Start 03/28/19 at 09:06; Stop 03/28/19 at 09:06; Status DC Hydralazine HCl (Apresoline Inj) 20 mg STK-MED ONCE .ROUTE ; Start 03/28/19 at 09:13; Stop 03/28/19 at 09:13; Status DC Hydralazine HCl (Apresoline Inj) 10 mg 1X ONCE IVP Last administered on 03/28/19at 09:14; Start 03/28/19 at 09:30; Stop 03/28/19 at 09:31; Status DC Iodixanol (Visipaque 320) 100 ml STK-MED ONCE .ROUTE ; Start 03/28/19 at 09:22; Stop 03/28/19 at 09:22; Status DC Diphenhydramine HCl (Benadryl) 50 mg STK-MED ONCE .ROUTE ; Start 03/28/19 at 09:38; Stop 03/28/19 at 09:38; Status DC Diphenhydramine HCl (Benadryl) 25 mg 1X ONCE IVP ; Start 03/28/19 at 09:45; Stop 03/28/19 at 09:46; Status DC Active Scripts Active Flector (Diclofenac Epolamine) 1 Each Patch.td12 1 Patch TP BID PRN 30 Days Symbicort 80-4.5 Mcg Inhaler (Budesonide/Formoterol Fumarate) 10.2 Gm Hfa.aer.ad 2 Puff IH BID 30 Days Reported Magnesium Oxide 400 Mg Tablet 400 Mg PO DAILY Atorvastatin Calcium 20 Mg Tablet 20 Mg PO HS Miralax (Polyethylene Glycol 3350) 17 Gm Powd.pack 1 Pkt PO DAILY Oxycodone Hcl Immed.release (Oxycodone Hcl) 10 Mg Tablet 10 Mg PO TID Clonidine Hcl 0.1 Mg Tablet 0.1 Mg PO PRN Q1HR PRN For SBP> 160 May repeat 1 hour after 1st dose if SBP is still >160 Mirtazapine 45 Mg Tablet 45 Mg PO HS Glipizide 5 Mg Tablet 5 Mg PO DAILY Hydralazine Hcl 25 Mg Tablet 1 Tab PO BIDWMEALS Lisinopril 20 Mg Tablet 1 Tab PO DAILY Robaxin-750 (Methocarbamol) 750 Mg Tablet 1 Tab PO TID Meloxicam 7.5 Mg Tablet 1 Tab PO DAILY Probiotic (Lactobacillus Acidophilus) 1 Each Capsule 1 Each PO DAILY Ambien (Zolpidem Tartrate) 5 Mg Tablet 5 Mg PO HS Ferrous Sulfate 325 Mg Tablet 1 Tab PO DAILY Lorazepam 0.5 Mg Tablet 0.5 Mg PO TIDWMEALS Clopidogrel (Clopidogrel Bisulfate) 75 Mg Tablet 75 Mg PO HS Vitamin E (Vitamin E Mixed) 400 Unit Capsule 400 Unit PO DAILY Fiber (Methylcellulose) 500 Mg Tablet 500 Mg PO BID Mysoline (Primidone) 50 Mg Tablet 100 Mg PO HS Vitamin D3 (Cholecalciferol (Vitamin D3)) 5,000 Unit Tablet 1 Tab PO DAILY Melatonin 3 Mg Tablet 10 Mg PO QHS Buspirone Hcl 15 Mg Tablet 1 Tab PO TID Gabapentin (Gabapentin) 300 Mg Capsule 300 Mg PO TID Cartia Xt (Diltiazem Hcl) 180 Mg Cap.er.24h 180 Mg PO DAILY Levothyroxine Sodium 150 Mcg Tablet 1 Tab PO DAILY07 Ropinirole Hcl 1 Mg Tablet 1 Mg PO TID Donepezil Hcl 10 Mg Tablet 1 Tab PO HS Duloxetine Hcl 60 Mg Capsule.dr 60 Mg PO BID Lidoderm (Lidocaine) 700 Mg Adh..patch 1 Patch TP HS Aspir 81 (Aspirin) 81 Mg Tablet. 1 Tab PO DAILY Carbidopa-Levodopa 25-100 Tab (Carbidopa/Levodopa) 1 Each Tablet 3 Tab PO TIDWMEALS Nexium Capsule (Esomeprazole Magnesium) 40 Mg Capsule.dr 40 Mg PO DAILY Vitals/I & O Vital Sign - Last 24 Hours 03/27/19 03/27/19 03/27/19 03/27/19 10:03 10:03 10:04 10:06 Pulse 72 72 72 Resp 16 B/P (MAP) 134/57 134/57 134/57 O2 Delivery Room Air 03/27/19 03/27/19 03/27/19 03/27/19 10:06 11:00 11:06 11:36 Temp 98.6 98.6 Pulse 72 84 Resp 18 16 B/P (MAP) 134/57 131/39 (69) 121/36 (64) 109/39 (62) Pulse Ox 95 O2 Delivery Room Air Room Air Room Air 03/27/19 03/27/19 03/27/19 03/27/19 13:51 14:51 15:00 15:31 Temp 98.4 98.4 Pulse 85 Resp 16 16 18 B/P (MAP) 121/41 (67) 99/33 (55) 104/46 (65) Pulse Ox 96 96 O2 Delivery Room Air Room Air Room Air Room Air 03/27/19 03/27/19 03/27/19 03/27/19 19:48 20:00 20:33 21:00 Temp 98.3 98.3 Pulse 69 69 Resp 18 B/P (MAP) 145/45 (78) 145/45 Pulse Ox 97 O2 Delivery Nasal Cannula Room Air Room Air O2 Flow Rate 2.0 03/27/19 03/27/19 03/27/19 03/27/19 21:01 21:03 21:58 23:51 Temp 98.4 98.4 Pulse 69 69 87 B/P (MAP) 145/45 145/45 150/49 (82) Pulse Ox 95 O2 Delivery Room Air Room Air O2 Flow Rate 2.0 03/28/19 03/28/19 03/28/19 03:48 07:37 09:14 Temp 98.3 98.3 Pulse 81 80 Resp 18 B/P (MAP) 158/66 (96) Pulse Ox 96 97 O2 Delivery Room Air Room Air Intake and Output 03/27/19 03/27/19 03/28/19 15:00 23:00 07:00 Intake Total 300 ml 0 ml Output Total 450 ml 1400 ml 450 ml Balance -450 ml -1100 ml -450 ml VANESSA LITTLEJOHN MD Mar 28, 2019 09:50
--- NOTE | 2019-03-28 10:33 | PDOC ---
MODERATE SEDATION ASSESSMENT RISKS/ALTERNATIVES Risks/Alternatives Risks and alternatives of this type of sedation and procedure discussed with: RISK/ALTERNATIVES: Patient H & P ON CHART H & P H & P on chart and reviewed for co-morbid conditions and appropriate labs. H&P ON CHART: Yes STATUS PREG STATUS ASSESSED: N/A MEDS/ALLERGIES REVIEWED Meds/Allergies Reviewed Medications and Allergies including time and route of recently administered narcotics and sedatives. MEDS/ALLERGIES REVIEWED: Yes ASA RATING ASA RATING: II AIRWAY ASSESSMENT Airway Assessment Airway patency, oral function limitations, presence of caps, crowns, dentures, partials, and ability to extend neck assessed. AIRWAY ASSESSMENT: Yes MALLAMPATI SCORE MALLAMPATI SCORE: II PRE-SEDATION ASSESSMENT PRE-SEDATION ASSESSMENT: Yes CHARLES FULLER MD Mar 28, 2019 10:33
--- NOTE | 2019-03-28 10:42 | CARD ---
MR#: [id number] Date of Study: 03/28/2019 Ordering Physician: CHARLES FULLER, Referring Physician: CHARLES FULLER, Tech: MARÍA OLSEN RTR APPROVED REPORT Patient StatusIN-PATIENT Test Baker: MARÍA OLSEN RTR Procedure(s) performed: 1. Bilateral selective renal angiography 2. Successful IMAGING SPECIALIST/stent placement to the left renal artery MODERATE SEDATION TIME: 105 MINUTES FLUORO TIME: 25.0 MION DOSE: 85.2 GYCM2 CONTRAST: 70CC INDICATION FOR PROCEDURE The indication(s) include : Resistant hypertension and renal artery stenosis. PROCEDURE NARRATIVE After explaining the risks, benefits and alternative options, informed consent was obtained from brittani ent. Patient was brought to the cardiac Ruching Machine Operator and her right groin was prepped and draped in the us ual fashion. 20 mL of 2% lidocaine was infiltrated into the skin and subcutaneous tissues for local a nesthesia. Arterial access was obtained the right common femoral artery and a 6 Gambian sheath was ins erted. 6 Gambian JR4 catheter was used to perform bilateral selective renal angiography. The following findings were noted. FINDINGS 1. 80% calcified stenosis involving the proximal segment of the left renal artery 2. No significant stenosis involving the right renal artery INTERVENTION The left renal artery was engaged with 6 [place]ian JR4 guide catheter and the stenosis in the proximal s egment was crossed with a 0.014 inch Asahi Pro water guidewire. Several initial attempts to predilate d this lesion using a 5.0 x 15 mm trek balloon were unsuccessful secondary to melon seeding within th e lesion. Another Pro water was advanced across the lesion for a colin wire technique. The lesion was then predilated successfully with the 5.0 x 15 mm trek balloon following which this was successfully treated with a 5.0 x 15 mm Herculink elite balloon expandable stent. Follow-up angiography showed re solution of the lesion with good distal flow. Patient tolerated the procedure well. Hemostasis in the right groin was achieved using Angio-Seal. There were no immediate complications. Conclusion 1. 80% stenosis involving the left renal artery 2. Successful IMAGING SPECIALIST/stent placement to the left renal artery Signed by : Charles Fuller, Electronically Approved : 03/28/2019 10:42:31
[2019-03-28] MEDS ORDERED: 0.9 % SODIUM CHLORIDE 10 ML DISP.SYRIN. IV PRN (10:45)
[2019-03-28] MEDS ORDERED: ACETAMINOPHEN 325 MG TABLET. PO PRN (10:45)
[2019-03-28] MEDS ORDERED: ATROPINE 0.5 MG/5 ML DISP.SYRINGE. IV PRN (10:45)
[2019-03-28] MEDS: oxyCODONE IR 5 MG TABLET PO SCH ×3 (11:11→21:57)
[2019-03-28] MEDS: POLYETHYLENE GLYCOL 3350 17 GM PACKET. PO SCH (11:11)
[2019-03-28] MEDS: VITAMIN E 200 UNIT CAPSULE. PO SCH (11:12)
[2019-03-28] MEDS: ASPIRIN ENTERIC COATED 81 MG TABLET.DR. PO SCH (11:12)
[2019-03-28] MEDS: METHOCARBAMOL 750 MG TABLET PO SCH ×3 (11:12→21:59)
[2019-03-28] MEDS: busPIRone 5 MG TABLET. PO SCH ×3 (11:12→22:21)
[2019-03-28] MEDS: MELOXICAM 7.5 MG TABLET PO SCH (11:12)
[2019-03-28] MEDS: CARBIDOPA/LEVODOPA 25/100MG TABLET PO SCH ×3 (11:13→17:11)
[2019-03-28] MEDS: DULoxetine HCL 30 MG CAPSULE.DR PO SCH ×2 (11:13→21:58)
[2019-03-28] MEDS: LORazepam 0.5 MG TABLET PO SCH ×3 (11:13→17:11)
--- NOTE | 2019-03-28 11:13 | NUR ---
CARLI following pt. CARLI faxed clinicals to [facility] and orders for walker for [facility]. Discussed with Patricia at [facility] if they can deliver walker to pt's room as pt might dc over the weekend. Please fax orders to [facility] if pt dc over weekend. Discussed with RN. Addendum: 03/28/19 at 1450 by GENI BOYCE SW following pt. [facility] will deliver a walker to pt's room. Discussed with pt at bedside and she is agreeable with plans. Pt is notified medicare only covers 80% for DME and she will have 20% copay for walker.
[2019-03-28] MEDS: MAGNESIUM OXIDE 400 MG TABLET PO SCH (11:14)
[2019-03-28] MEDS: LISINOPRIL 20 MG TABLET PO SCH ×2 (11:14→21:59)
[2019-03-28] MEDS: CALCIUM POLYCARBOPHIL 625 MG TABLET PO SCH ×2 (11:15→21:59)
[2019-03-28] MEDS: CHOLECALCIFEROL (VITAMIN D3) 5,000 UNIT CAPSULE PO SCH (11:15)
[2019-03-28] MEDS: FAMOTIDINE 20 MG TABLET. PO SCH (11:15)
[2019-03-28] MEDS: rOPINIRole 1 MG TABLET. PO SCH ×3 (11:16→21:59)
[2019-03-28] MEDS: FERROUS SULFATE 325 MG TABLET. PO SCH (11:16)
[2019-03-28] MEDS: DICLOFENAC SODIUM 1% TOPICAL GEL 100GM TUBE. TP SCH ×2 (11:16→22:15)
[2019-03-28] MEDS: GABAPENTIN 300 MG CAPSULE. PO SCH ×3 (11:16→21:58)
[2019-03-28] MEDS: LACTOBACILLUS RHAMNOSUS GG 1 CAPSULE. PO SCH ×2 (11:16→22:00)
[2019-03-28] MEDS: IV 1/2 NORMAL SALINE 1,000 ML IV SCH ×2 (11:17→22:00)
--- NOTE | 2019-03-28 11:57 | PDOC ---
SUBJECTIVE ROS Has PCI Lt Renal art this am, no complaints OBJECTIVE Vital Signs Vital Signs Date Time Temp Pulse Resp B/P (MAP) Pulse Ox O2 Delivery O2 Flow Rate FiO2 03/28/19 11:14 82 143/52 03/28/19 10:16 13 100 Nasal Cannula 2.0 03/28/19 07:00 98.5 98.5 I & 0 Intake and Output 03/28/19 07:00 Intake Total 300 ml Output Total 2300 ml Balance -2000 ml Intake Oral 300 ml Output Urine Total 2300 ml PHYSICAL EXAM Physical Exam General: NAD HEENT: OM moist Neck Supple Lungs: Clear to auscultation, non labored Heart: Regular rate 2/6 systolic murmur Abdomen: Soft, No tenderness Extremities: No edema Skin: No Rash Neuro: Per Neurologist Psych/Mental Status: Mood NL No Carbone DIAGNOSIS/ASSESSMENT Assessment & Plan CKD stage 3 - Used to follow with Dr Stinson Stable renal function ,Recd IV Contrast for CTA, No labs this am S/P PCI for Lt CAM this am Monitor for MAU. if dced will need fu labs with PCP next week Lt Renal Art Stenosis- On US CTA in 2018 no e/o of CAM, repeat CTA 03/26 - Left kidney is atrophic with respect to the contralateral side. High-grade stenosis of left main renal artery- s/p Stent this am Recommend monitor BP with medical therapy , if failure of optimal medical therapy may need intervention by cardiology HTN- Poorly controlled , control better since adding Lisinopril Card managing , s/p Lt renal art stent Rt Kidney Complex cyst-On US , CTA in 2018- was reported normal CTA 03/26- There is a small hypoenhancing lesion in the anterior left kidney likely a small cyst, but too small to adequately characterize. This measures 3 mm diameter. Pt and daughter want to get a Bx of the cyst, Cysts are not biopsied dw Pt and daughter defer referral to Urology if deemed necessary - defer to PCP Transient Ischemic attack with dysarthria - neuro following Right carotid artery stenosis: moderate per doppler CAD; past stent to PLB, clinically stable PAFIB; currently SR Factor V leiden deficiency COMMENT/RELEVANT DATA Meds Current Medications Medications (Trade) Dose Ordered Sig/Carlene Start Time Stop Time Status Last Admin Dose Admin Acetaminophen (Tylenol) 650 mg PRN Q6HRS PRN 03/28/19 10:45 Albuterol Sulfate (Ventolin Neb Soln) 2.5 mg RTQID 03/20/19 08:00 03/28/19 07:19 2.5 MG Aspirin (Children'S Aspirin) 324 mg 1X STAT 03/19/19 17:32 03/19/19 17:39 DC 03/19/19 17:50 324 MG Aspirin (Ecotrin) 81 mg [id number] 03/20/19 08:00 03/28/19 11:12 81 MG Atorvastatin Calcium (Lipitor) 20 mg HS 03/19/19 23:00 03/27/19 20:57 20 MG Atropine Sulfate (ATROPINE 0.5mg SYRINGE) 0.5 mg PRN 1X PRN 03/28/19 10:45 Bisacodyl (Dulcolax Supp) 10 mg PRN DAILY PRN 03/24/19 13:00 Budesonide (Pulmicort) 0.5 mg RTBID 03/20/19 08:00 03/28/19 07:20 0.5 MG Buspirone HCl (Buspar) 15 mg TID 03/19/19 23:00 03/28/19 11:12 15 MG Calcium Polycarbophil (Fibercon) 625 mg BID 03/20/19 09:00 03/28/19 11:15 625 MG Carbidopa/Levodopa (Sinemet 25/100) 3 tab TIDWMEALS 03/19/19 23:00 03/28/19 11:13 3 TAB Clonidine HCl (Catapres) 0.1 mg PRN Q1HR PRN 03/19/19 22:00 03/24/19 10:25 0.1 MG Clopidogrel Bisulfate (Plavix) 75 mg HS 03/19/19 23:00 03/27/19 21:03 75 MG Dextrose (Dextrose 50%-Water Syringe) 12.5 gm PRN Q15MIN PRN 03/21/19 17:00 03/26/19 11:53 12.5 GM Diclofenac Sodium (Voltaren) 1 minnie BID 03/20/19 13:30 03/28/19 11:16 1 MINNIE Diltiazem HCl (Cardizem 24hr Cd) 180 mg DAILY 03/20/19 09:00 03/28/19 11:13 180 MG Diphenhydramine HCl (Benadryl) 25 mg 1X ONCE 03/28/19 09:45 03/28/19 09:46 DC 03/28/19 09:45 25 MG Donepezil HCl (Aricept) 10 mg HS 03/19/19 23:00 03/27/19 21:03 10 MG Duloxetine HCl (Cymbalta) 60 mg BID 03/19/19 23:00 03/28/19 11:13 60 MG Famotidine (Pepcid) 20 mg DAILY 03/21/19 09:00 03/28/19 11:15 20 MG Fentanyl Citrate (Fentanyl 2ml Vial) 25 mcg 1X ONCE 03/28/19 10:45 03/28/19 10:46 DC Ferrous Sulfate (Feosol) 325 mg DAILY 03/20/19 09:00 03/28/19 11:16 325 MG Gabapentin (Neurontin) 300 mg TID 03/19/19 23:00 03/28/19 11:16 300 MG Glipizide (Glucotrol) 2.5 mg DAILY 03/23/19 09:00 03/27/19 10:04 2.5 MG Heparin Sodium (Porcine) (Heparin Sodium) 5,000 unit 1X ONCE 03/28/19 09:15 03/28/19 09:16 DC 03/28/19 09:15 5,000 UNIT Heparin Sodium/ Sodium Chloride 500 ml @ As Directed STK-MED ONCE 03/28/19 09:53 03/28/19 09:54 DC Heparin Sodium/ Sodium Chloride (HEPARIN for ARTERIAL LINE FLUSH) 1,000 unit 1X ONCE 03/28/19 09:00 03/28/19 09:01 DC 03/28/19 08:56 1,000 UNIT Hydralazine HCl (Apresoline Inj) 10 mg 1X ONCE 03/28/19 10:15 03/28/19 10:16 DC 03/28/19 10:08 10 MG Hydralazine HCl (Apresoline) 50 mg TID 03/26/19 14:00 03/28/19 11:14 50 MG Info (CONTRAST GIVEN -- Rx MONITORING) 1 each PRN DAILY PRN 03/27/19 09:00 03/29/19 08:59 Iodixanol (Visipaque 320) 100 ml STK-MED ONCE 03/28/19 09:53 03/28/19 09:53 DC Iohexol (Omnipaque 350 Mg/ml) 70 ml 1X ONCE 03/27/19 09:00 03/27/19 09:01 DC 03/27/19 09:24 70 ML Isosorbide Mononitrate (Imdur) 30 mg HS 03/26/19 21:00 03/27/19 21:03 30 MG Labetalol HCl (Trandate) 100 mg BID 03/26/19 14:00 03/27/19 14:10 DC 03/27/19 10:03 100 MG Lactobacillus Rhamnosus (Culturelle) 1 cap BID 03/20/19 21:00 03/28/19 11:16 1 CAP Levofloxacin (Levaquin) 750 mg 1X ONCE 03/21/19 14:00 03/21/19 14:01 DC 03/21/19 13:56 750 MG Levothyroxine Sodium (Synthroid) 150 mcg DAILY06 03/20/19 06:00 03/27/19 05:23 150 MCG Lidocaine (Lidoderm) 1 patch HS 03/19/19 23:00 03/27/19 21:28 1 PATCH Lidocaine HCl (Lidocaine 1% 20ml Vial) 20 ml 1X ONCE 03/28/19 09:00 03/28/19 09:01 DC 03/28/19 08:56 20 ML Lisinopril (Prinivil) 20 mg BID 03/23/19 21:00 03/28/19 11:14 20 MG Lorazepam (Ativan Inj) 1 mg 1X STAT 03/19/19 18:51 03/19/19 18:56 DC 03/19/19 19:33 1 MG Lorazepam (Ativan) 0.5 mg 1X ONCE 03/26/19 12:30 03/26/19 12:31 DC 03/26/19 12:46 0.5 MG Magnesium Hydroxide (Milk Of Magnesia) 2,400 mg 1X ONCE 03/20/19 13:30 03/20/19 13:31 DC 03/20/19 13:20 2,400 MG Magnesium Oxide (Magnesium Oxide) 400 mg DAILY 03/20/19 09:00 03/28/19 11:14 400 MG Meloxicam (Mobic) 7.5 mg DAILY 03/20/19 09:00 03/28/19 11:12 7.5 MG Methocarbamol (Robaxin) 750 mg TID 03/19/19 23:00 03/28/19 11:12 750 MG Midazolam HCl (Versed) 1 mg 1X ONCE 03/28/19 10:45 03/28/19 10:46 DC Mirtazapine (Remeron) 45 mg HS 03/19/19 23:00 03/27/19 21:00 45 MG Non-Formulary Medication (Budesonide/ Formoterol Fumarate (Symbicort 80-4.5 Mcg Inhaler)) 2 puff BID 03/20/19 09:00 UNV Non-Formulary Medication (Melatonin ) 10 mg QHS 03/20/19 21:00 UNV Ondansetron HCl (Zofran) 4 mg PRN Q6HRS PRN 03/22/19 09:45 03/22/19 09:45 4 MG Oxycodone HCl (Roxicodone) 10 mg TID 03/19/19 23:00 03/28/19 11:11 10 MG Pantoprazole Sodium (Protonix) 40 mg DAILYAC 03/20/19 07:30 03/20/19 09:57 DC 03/20/19 09:07 40 MG Pharmacy Consult (C.diff Med Screen By Rx) 1 each 1X ONCE 03/20/19 09:00 03/20/19 09:01 DC Polyethylene Glycol (miraLAX PACKET) 17 gm DAILY 03/20/19 09:00 03/28/19 11:11 17 GM Primidone (Mysoline) 100 mg HS 03/19/19 23:00 03/27/19 20:58 100 MG Ropinirole HCl (Requip) 1 mg TID 03/19/19 23:00 03/28/19 11:16 1 MG Senna/Docusate Sodium (Senna Plus) 1 tab PRN BID PRN 03/22/19 14:45 03/25/19 10:09 1 TAB Sodium Chloride 1,000 ml @ 100 mls/hr Q10H 03/28/19 10:33 03/28/19 11:17 100 MLS/HR Sodium Chloride (Normal Saline Flush) 10 ml QSHIFT PRN 03/28/19 10:45 Vitamin D (Vitamin D3) 5,000 unit DAILY 03/20/19 09:00 03/28/19 11:15 5,000 UNIT Vitamin E (Vitamin E.) 400 unit DAILY 03/20/19 09:00 03/28/19 11:12 400 UNIT Zolpidem Tartrate (Ambien) 5 mg HS 03/19/19 23:00 03/27/19 20:59 5 MG Lab Laboratory Tests Test 03/27/19 17:16 03/28/19 08:14 03/28/19 11:13 Glucose (Fingerstick) 109 mg/dL (70-99) 94 mg/dL (70-99) 98 mg/dL (70-99) Results All relevant outside records, renal labs, imaging studies, telemetry/EKG's were reviewed. TAISHA GARCIA MD Mar 28, 2019 11:57
[2019-03-28] MEDS: IV NORMAL SALINE 1000ML BAG 1,000 ML IV SCH (14:49)
[2019-03-28] MEDS: SENNOSIDES/DOCUSATE 8.6/50MG TABLET. PO PRN (19:29)
[2019-03-28] MEDS: ONDANSETRON PF 4 MG/2 ML VIAL. IVP PRN (19:30)
[2019-03-28] MEDS: ZOLPIDEM 5 MG TABLET. PO SCH (21:56)
[2019-03-28] MEDS: LIDOCAINE (700MG/PATCH) PATCH. TP SCH (21:56)
[2019-03-28] MEDS: CLOPIDOGREL BISULFATE 75 MG TABLET PO SCH (21:57)
[2019-03-28] MEDS: PRIMIDONE 50 MG TABLET PO SCH (21:57)
[2019-03-28] MEDS: ISOSORBIDE MONONITRATE ER 30 MG TAB.ER.24H PO SCH (21:58)
[2019-03-28] MEDS: DONEPEZIL HCL 10 MG TABLET. PO SCH (21:59)
[2019-03-28] MEDS: ATORVASTATIN CALCIUM 20 MG TABLET PO SCH (21:59)
[2019-03-28] MEDS: MIRTAZAPINE 15 MG TABLET PO SCH (21:59)
[2019-03-29 03:30] VITALS: BP 132/63
[2019-03-29] MEDS: IV NORMAL SALINE 1000ML BAG 1,000 ML IV SCH (04:30)
[2019-03-29] MEDS: LEVOTHYROXINE 150 MCG TABLET PO SCH (06:06)
--- NOTE | 2019-03-29 06:17 | PDOC ---
PROGRESS NOTES History of Present Illness History of Present Illness ASSESSMENT AND PLAN: IMPRESSION: No acute intracranial findings. on ct head Probable transient ischemic attack. 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 Despite a normal renal artery to aorta velocity ratio, this suggests greater than 60% stenosis. No Doppler evidence of greater than 60% stenosis involving the right renal artery. 2.0 cm hypoechoic lesion within the mid zone of the right kidney, possibly a complex cyst with internal septation.probable artifact The possibility of a solid lesion component is not excluded sonographically. There is also a suspected simple cyst within the left kidney measuring 2.1 cm. There is no correlate for these findings on the CT angiogram dated 11/05/2017. Renal protocol CT or MRI is recommended to confirm benignity. Renal cortical lobulation, developmental or due to scarring. There is also increased right upper, convexity, a finding which can be seen with medical renal disease. High-grade stenosis of left main renal artery. on cta No focal mass lesions involving the kidneys are identified. Prior ultrasound imaging findings are most likely artifactual. admitted. consult Neurology. 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 PT, OT speech therapy. DVT prophylaxis. Full Code. home meds increase her aspirin. fluid restriction bmp today urinary na, random PT/OT Decrease glipizide to 2.5 mg po daily inc lisinopril to 20 mg po bid INC HYDRALIZINE TO 50MG PO BID DILCOLAX SUPP 10MG NOW NEPHROLOGY CONSULT 03/28 RENAL ANGIOGRAPHY ADD LABETALOL 100MG PO BID Successful [employer] AGENT/stent placement to the left renal artery 03/29 HYPOGLYCEMIC THIS am, willl monitor 37 min pt exam, chart review, > 50% of time spent with exam, chart review, pt care coordination Vitals Vitals Vital Signs Date Time Temp Pulse Resp B/P (MAP) Pulse Ox O2 Delivery O2 Flow Rate FiO2 03/29/19 03:30 98.3 85 18 132/63 (86) 96 Room Air 98.3 03/28/19 22:57 2.0 Physical Exam Physical Exam PHYSICAL EXAMINATION: VITALS: Within normal limits and are stable. GENERAL: No apparent distress. Alert and oriented. HEENT: Head is normocephalic, atraumatic, pupils were equally round and reactive to light and accommodation. NECK: Supple, no JVD, no thyromegaly was noted. LUNGS: Clear to auscultation in all lung martinez without rhonchi or wheezing. HEART: RRR, S1, S2 present. Peripheral pulses intact, no obvious murmurs were noted. ABDOMEN: Soft, nontender. Positive bowel sounds no organomegaly, normal bowel sounds. EXTREMITIES: Without any cyanosis, clubbing, or edema. Pedal pulses intact, Homans sign is negative. NEUROLOGIC: confused, anxious calm PSYCHIATRIC: Normal affect, normal mood. Stable. SKIN: No ulcerations or rashes, good skin turgor, no jaundice. VASCULAR: Good capillary refill, neurovascular bundle appears to be intact. General: Alert, Oriented X3, Cooperative, No acute distress Heart: Regular rate Lungs: Clear Abdomen: Normal bowel sounds, No tenderness Extremities: No cyanosis, No edema, No tenderness/swelling Labs LABS Laboratory Tests Test 03/28/19 08:14 03/28/19 11:13 03/28/19 16:37 03/28/19 20:43 Glucose (Fingerstick) 94 mg/dL (70-99) 98 mg/dL (70-99) 136 mg/dL (70-99) 149 mg/dL (70-99) Assessment and Plan Assessmemt and Plan Problems Medical Problems: (1) Acute focal neurological deficit, onset within 3-24 hours Status: Acute (2) TIA (transient ischemic attack) Status: Acute Comment Review of Relevant I have reviewed the following items dina (where applicable) has been applied. Labs Laboratory Tests Test 03/27/19 07:56 03/27/19 11:48 03/27/19 17:16 03/28/19 08:14 Glucose (Fingerstick) 103 mg/dL (70-99) 152 mg/dL (70-99) 109 mg/dL (70-99) 94 mg/dL (70-99) Test 03/28/19 11:13 03/28/19 16:37 03/28/19 20:43 Glucose (Fingerstick) 98 mg/dL (70-99) 136 mg/dL (70-99) 149 mg/dL (70-99) Laboratory Tests Test 03/28/19 08:14 03/28/19 11:13 03/28/19 16:37 03/28/19 20:43 Glucose (Fingerstick) 94 mg/dL (70-99) 98 mg/dL (70-99) 136 mg/dL (70-99) 149 mg/dL (70-99) Medications Current Medications Aspirin (Children'S Aspirin) 324 mg 1X STAT PO Last administered on 03/19/19 17:50; Start 03/19/19 at 17:32; Stop 03/19/19 at 17:39; Status DC Iohexol (Omnipaque 350 Mg/ml) 60 ml 1X ONCE IV ; Start 03/19/19 at 17:45; Stop 03/19/19 at 17:46; Status DC Lorazepam (Ativan Inj) 1 mg 1X STAT IVP Last administered on 03/19/19 19:33; Start 03/19/19 at 18:51; Stop 03/19/19 at 18:56; Status DC Pharmacy Consult (C.diff Med Screen By Rx) 1 each 1X ONCE [facility] ; Start 03/20/19 at 09:00; Stop 03/20/19 at 09:01; Status DC Aspirin (Ecotrin) 81 mg DAILYWBKFT PO Last administered on 03/28/19at 11:12; Start 03/20/19 at 08:00 Atorvastatin Calcium (Lipitor) 20 mg HS PO Last administered on 03/28/19at 21:59; Start 03/19/19 at 23:00 Carbidopa/Levodopa (Sinemet 25/100) 3 tab TIDWMEALS PO Last administered on 03/28/19 17:11; Start 03/19/19 at 23:00 Clonidine HCl (Catapres) 0.1 mg PRN Q1HR PRN PO HYPERTENSION Last administered on 03/24/19at 10:25; Start 03/19/19 at 22:00 Clopidogrel Bisulfate (Plavix) 75 mg HS PO Last administered on 03/28/19 21:57; Start 03/19/19 at 23:00 Diltiazem HCl (Cardizem 24hr Cd) 180 mg DAILY PO Last administered on 03/28/19 11:13; Start 03/20/19 at 09:00 Donepezil HCl (Aricept) 10 mg HS PO Last administered on 03/28/19 21:59; Start 03/19/19 at 23:00 Ferrous Sulfate (Feosol) 325 mg DAILY PO Last administered on 03/28/19 11:16; Start 03/20/19 at 09:00 Gabapentin (Neurontin) 300 mg TID PO Last administered on 03/28/19 21:58; Start 03/19/19 at 23:00 Glipizide (Glucotrol) 5 mg DAILY PO Last administered on 03/22/19 08:10; Start 03/20/19 at 09:00; Stop 03/22/19 at 13:43; Status DC Hydralazine HCl (Apresoline) 25 mg BIDWMEALS PO Last administered on 03/24/19 09:07; Start 03/19/19 at 23:00; Stop 03/24/19 at 11:55; Status DC Levothyroxine Sodium (Synthroid) 150 mcg DAILY06 PO Last administered on 03/29/19 06:06; Start 03/20/19 at 06:00 Lidocaine (Lidoderm) 1 patch HS TP Last administered on 03/28/19 21:56; Start 03/19/19 at 23:00 Lisinopril (Prinivil) 20 mg DAILY PO Last administered on 03/23/19 09:25; Start 03/20/19 at 09:00; Stop 03/23/19 at 11:36; Status DC Lorazepam (Ativan) 0.5 mg TIDWMEALS PO Last administered on 03/28/19 17:11; Start 03/19/19 at 23:00 Meloxicam (Mobic) 7.5 mg DAILY PO Last administered on 03/28/19 11:12; Start 03/20/19 at 09:00 Methocarbamol (Robaxin) 750 mg TID PO Last administered on 03/28/19 21:59; Start 03/19/19 at 23:00 Polyethylene Glycol (miraLAX PACKET) 17 gm DAILY PO Last administered on 03/28/19 11:11; Start 03/20/19 at 09:00 Primidone (Mysoline) 100 mg HS PO Last administered on 03/28/19 21:57; Start 03/19/19 at 23:00 Ropinirole HCl (Requip) 1 mg TID PO Last administered on 03/28/19 21:59; Start 03/19/19 at 23:00 Zolpidem Tartrate (Ambien) 5 mg HS PO Last administered on 03/28/19 21:56; Start 03/19/19 at 23:00 Non-Formulary Medication (Budesonide/ Formoterol Fumarate (Symbicort 80-4.5 Mcg Inhaler)) 2 puff BID IH ; Start 03/20/19 at 09:00; Status UNV Buspirone HCl (Buspar) 15 mg TID PO Last administered on 03/28/19 22:21; Start 03/19/19 at 23:00 Vitamin D (Vitamin D3) 5,000 unit DAILY PO Last administered on 03/28/19 11:15; Start 03/20/19 at 09:00 Duloxetine HCl (Cymbalta) 60 mg BID PO Last administered on 03/28/19 21:58; Start 03/19/19 at 23:00 Pantoprazole Sodium (Protonix) 40 mg DAILYAC PO Last administered on 03/20/19 09:07; Start 03/20/19 at 07:30; Stop 03/20/19 at 09:57; Status DC Lactobacillus Rhamnosus (Culturelle) 1 cap DAILY PO Last administered on 03/20/19 09:07; Start 03/20/19 at 09:00; Stop 03/20/19 at 09:56; Status DC Magnesium Oxide (Magnesium Oxide) 400 mg DAILY PO Last administered on 03/28/19 11:14; Start 03/20/19 at 09:00 Non-Formulary Medication (Melatonin ) 10 mg QHS PO ; Start 03/20/19 at 21:00; Status UNV Calcium Polycarbophil (Fibercon) 625 mg BID PO Last administered on 03/28/19 21:59; Start 03/20/19 at 09:00 Mirtazapine (Remeron) 45 mg HS PO Last administered on 03/28/19 21:59; Start 03/19/19 at 23:00 Oxycodone HCl (Roxicodone) 10 mg TID PO Last administered on 03/28/19 21:57; Start 03/19/19 at 23:00 Vitamin E (Vitamin E.) 400 unit DAILY PO Last administered on 03/28/19 11:12; Start 03/20/19 at 09:00 Budesonide (Pulmicort) 0.5 mg RTBID NEB Last administered on 03/28/19 20:11; Start 03/20/19 at 08:00 Albuterol Sulfate (Ventolin Neb Soln) 2.5 mg RTQID NEB Last administered on 03/28/19 20:11; Start 03/20/19 at 08:00 Lactobacillus Rhamnosus (Culturelle) 1 cap BID PO Last administered on 22:00; Start 03/20/19 at 21:00 Famotidine (Pepcid) 20 mg DAILY PO Last administered on 03/28/19 11:15; Start 03/21/19 at 09:00 Magnesium Hydroxide (Milk Of Magnesia) 2,400 mg 1X ONCE PO Last administered on 03/20/19 13:20; Start 03/20/19 at 13:30; Stop 03/20/19 at 13:31; Status DC Diclofenac Sodium (Voltaren) 1 minnie BID TP Last administered on 03/28/19 22:15; Start 03/20/19 at 13:30 Levofloxacin (Levaquin) 750 mg 1X ONCE PO Last administered on 03/21/19 13:56; Start 03/21/19 at 14:00; Stop 03/21/19 at 14:01; Status DC Dextrose (Dextrose 50%-Water Syringe) 12.5 gm PRN Q15MIN PRN IV SEE COMMENTS Last administered on 03/26/19at 11:53; Start 03/21/19 at 17:00 Ondansetron HCl (Zofran) 4 mg PRN Q6HRS PRN IVP NAUSEA/VOMITING Last a dministered on 03/28/19 19:30; Start 03/22/19 at 09:45 Acetaminophen (Tylenol) 650 mg PRN Q6HRS PRN PO PAIN Last administered on 03/22/19 09:46; Start 03/22/19 at 09:45; Stop 03/28/19 at 10:38; Status DC Glipizide (Glucotrol) 2.5 mg DAILY PO Last administered on 03/27/19 10:04; Start 03/23/19 at 09:00 Senna/Docusate Sodium (Senna Plus) 1 tab PRN BID PRN PO CONSTIPATION Last administered on 03/28/19 19:29; Start 03/22/19 at 14:45 Lisinopril (Prinivil) 20 mg BID PO Last administered on 03/28/19at 21:59; Start 03/23/19 at 21:00 Lorazepam (Ativan) 0.5 mg 1X ONCE PO Last administered on 03/23/19at 14:39; Start 03/23/19 at 14:45; Stop 03/23/19 at 14:46; Status DC Hydralazine HCl (Apresoline) 50 mg BIDWMEALS PO Last administered on 03/26/19at 08:55; Start 03/24/19 at 17:00; Stop 03/26/19 at 11:05; Status DC Hydralazine HCl (Apresoline) 25 mg ONCE ONCE PO Last administered on 03/24/19at 12:31; Start 03/24/19 at 12:00; Stop 03/24/19 at 12:01; Status DC Bisacodyl (Dulcolax Supp) 10 mg 1X ONCE MS ; Start 03/24/19 at 13:00; Stop 03/24/19 at 13:01; Status DC Bisacodyl (Dulcolax Supp) 10 mg PRN DAILY PRN MS CONSTIPATION; Start 03/24/19 at 13:00 Hydralazine HCl (Apresoline) 50 mg TID PO Last administered on 03/28/19at 21:58; Start 03/26/19 at 14:00 Isosorbide Mononitrate (Imdur) 30 mg HS PO Last administered on 03/28/19at 21:58; Start 03/26/19 at 21:00 Lorazepam (Ativan) 0.5 mg 1X ONCE PO Last administered on 03/26/19at 12:46; Start 03/26/19 at 12:30; Stop 03/26/19 at 12:31; Status DC Labetalol HCl (Trandate) 100 mg BID PO Last administered on 03/27/19at 10:03; Start 03/26/19 at 14:00; Stop 03/27/19 at 14:10; Status DC Sodium Chloride 1,000 ml @ 80 mls/hr [id number] IV Last administered on 03/26/19at 21:47; Start 03/26/19 at 21:00; Stop 03/27/19 at 18:31; Status DC Sodium Chloride 1,000 ml @ 80 mls/hr [id number] IV Last administered on 03/27/19at 10:30; Start 03/27/19 at 15:00 Iohexol (Omnipaque 350 Mg/ml) 70 ml 1X ONCE IV Last administered on 03/27/19at 09:24; Start 03/27/19 at 09:00; Stop 03/27/19 at 09:01; Status DC Info (CONTRAST GIVEN -- Rx MONITORING) 1 each PRN DAILY PRN MC SEE COMMENTS; Start 03/27/19 at 09:00; Stop 03/29/19 at 08:59 Sodium Chloride 250 ml @ 500 mls/hr 1X ONCE IV Last administered on at 14:30; Start 03/27/19 at 16:15; Stop 03/27/19 at 16:44; Status DC Iodixanol (Visipaque 320) 100 ml STK-MED ONCE .ROUTE ; Start 03/28/19 at 07:53; Stop 03/28/19 at 07:53; Status DC Lidocaine HCl (Lidocaine 1% 20ml Vial) 20 ml STK-MED ONCE .ROUTE ; Start 03/28/19 at 07:53; Stop 03/28/19 at 07:54; Status DC Heparin Sodium/ Sodium Chloride 1,000 ml @ As Directed STK-MED ONCE .ROUTE ; Start 03/28/19 at 07:53; Stop 03/28/19 at 07:54; Status DC Fentanyl Citrate (Fentanyl 2ml Vial) 100 mcg STK-MED ONCE .ROUTE ; Start 03/28/19 at 08:01; Stop 03/28/19 at 08:01; Status DC Midazolam HCl (Versed) 2 mg STK-MED ONCE .ROUTE ; Start 03/28/19 at 08:01; Stop 03/28/19 at 08:02; Status DC Midazolam HCl (Versed) 2 mg STK-MED ONCE .ROUTE ; Start 03/28/19 at 08:49; Stop 03/28/19 at 08:49; Status DC Heparin Sodium/ Sodium Chloride (HEPARIN for ARTERIAL LINE FLUSH) 1,000 unit 1X ONCE IART Last administered on 03/28/19at 08:56; Start 03/28/19 at 09:00; Stop 03/28/19 at 09:01; Status DC Heparin Sodium/ Sodium Chloride (HEPARIN for ARTERIAL LINE FLUSH) 1,000 unit 1X ONCE IART Last administered on 03/28/19at 08:56; Start 03/28/19 at 09:00; Stop 03/28/19 at 09:01; Status DC Midazolam HCl (Versed) 2 mg 1X ONCE IV Last administered on 03/28/19at 08:40; Start 03/28/19 at 09:00; Stop 03/28/19 at 09:01; Status DC Fentanyl Citrate (Fentanyl 2ml Vial) 100 mcg 1X ONCE IV Last administered on 03/28/19at 08:40; Start 03/28/19 at 09:00; Stop 03/28/19 at 09:01; Status DC Iodixanol (Visipaque 320) 100 ml 1X ONCE IART Last administered on 03/28/19at 09:00; Start 03/28/19 at 09:00; Stop 03/28/19 at 09:01; Status DC Lidocaine HCl (Lidocaine 1% 20ml Vial) 20 ml 1X ONCE INJ Last administered on 03/28/19at 08:56; Start 03/28/19 at 09:00; Stop 03/28/19 at 09:01; Status DC Heparin Sodium (Porcine) (Heparin Sodium) 10,000 unit STK-MED ONCE .ROUTE ; Start 03/28/19 at 08:58; Stop 03/28/19 at 08:58; Status DC Heparin Sodium (Porcine) (Heparin Sodium) 5,000 unit 1X ONCE IV Last administered on 03/28/19at 09:15; Start 03/28/19 at 09:15; Stop 03/28/19 at 09:16; Status DC Fentanyl Citrate (Fentanyl 2ml Vial) 100 mcg STK-MED ONCE .ROUTE ; Start 03/28/19 at 09:06; Stop 03/28/19 at 09:06; Status DC Hydralazine HCl (Apresoline Inj) 20 mg STK-MED ONCE .ROUTE ; Start 03/28/19 at 09:13; Stop 03/28/19 at 09:13; Status DC Hydralazine HCl (Apresoline Inj) 10 mg 1X ONCE IVP Last administered on 03/28/19at 09:14; Start 03/28/19 at 09:30; Stop 03/28/19 at 09:31; Status DC Iodixanol (Visipaque 320) 100 ml STK-MED ONCE .ROUTE ; Start 03/28/19 at 09:22; Stop 03/28/19 at 09:22; Status DC Diphenhydramine HCl (Benadryl) 50 mg STK-MED ONCE .ROUTE ; Start 03/28/19 at 09:38; Stop 03/28/19 at 09:38; Status DC Diphenhydramine HCl (Benadryl) 25 mg 1X ONCE IVP Last administered on 03/28/19at 09:45; Start 03/28/19 at 09:45; Stop 03/28/19 at 09:46; Status DC Fentanyl Citrate (Fentanyl 2ml Vial) 100 mcg STK-MED ONCE .ROUTE ; Start 03/28/19 at 09:46; Stop 03/28/19 at 09:47; Status DC Iodixanol (Visipaque 320) 100 ml STK-MED ONCE .ROUTE ; Start 03/28/19 at 09:53; Stop 03/28/19 at 09:53; Status DC Heparin Sodium/ Sodium Chloride 500 ml @ As Directed STK-MED ONCE .ROUTE ; Start 03/28/19 at 09:53; Stop 03/28/19 at 09:54; Status DC Hydralazine HCl (Apresoline Inj) 10 mg 1X ONCE IVP Last administered on 03/28/19at 10:08; Start 03/28/19 at 10:15; Stop 03/28/19 at 10:16; Status DC Fentanyl Citrate (Fentanyl 2ml Vial) 25 mcg 1X ONCE IV ; Start 03/28/19 at 10:45; Stop 03/28/19 at 10:46; Status DC Midazolam HCl (Versed) 1 mg 1X ONCE IV ; Start 03/28/19 at 10:45; Stop 03/28/19 at 10:46; Status DC Sodium Chloride (Normal Saline Flush) 10 ml QSHIFT PRN IV AFTER MEDS AND BLOOD DRAWS; Start 03/28/19 at 10:45 Sodium Chloride 1,000 ml @ 100 mls/hr Q10H IV Last administered on 03/28/19at 22:00; Start 03/28/19 at 10:33 Acetaminophen (Tylenol) 650 mg PRN Q6HRS PRN PO MILD PAIN 1-3 Last administered on 03/28/19at 12:51; Start 03/28/19 at 10:45 Atropine Sulfate (ATROPINE 0.5mg SYRINGE) 0.5 mg PRN 1X PRN IV SYMPTOMATIC BRADYCARDIA; Start 03/28/19 at 10:45 Active Scripts Active Flector (Diclofenac Epolamine) 1 Each Patch.td12 1 Patch TP BID PRN 30 Days Symbicort 80-4.5 Mcg Inhaler (Budesonide/Formoterol Fumarate) 10.2 Gm Hfa.aer.ad 2 Puff IH BID 30 Days Reported Magnesium Oxide 400 Mg Tablet 400 Mg PO DAILY Atorvastatin Calcium 20 Mg Tablet 20 Mg PO HS Miralax (Polyethylene Glycol 3350) 17 Gm Powd.pack 1 Pkt PO DAILY Oxycodone Hcl Immed.release (Oxycodone Hcl) 10 Mg Tablet 10 Mg PO TID Clonidine Hcl 0.1 Mg Tablet 0.1 Mg PO PRN Q1HR PRN For SBP> 160 May repeat 1 hour after 1st dose if SBP is still >160 Mirtazapine 45 Mg Tablet 45 Mg PO HS Glipizide 5 Mg Tablet 5 Mg PO DAILY Hydralazine Hcl 25 Mg Tablet 1 Tab PO BIDWMEALS Lisinopril 20 Mg Tablet 1 Tab PO DAILY Robaxin-750 (Methocarbamol) 750 Mg Tablet 1 Tab PO TID Meloxicam 7.5 Mg Tablet 1 Tab PO DAILY Probiotic (Lactobacillus Acidophilus) 1 Each Capsule 1 Each PO DAILY Ambien (Zolpidem Tartrate) 5 Mg Tablet 5 Mg PO HS Ferrous Sulfate 325 Mg Tablet 1 Tab PO DAILY Lorazepam 0.5 Mg Tablet 0.5 Mg PO TIDWMEALS Clopidogrel (Clopidogrel Bisulfate) 75 Mg Tablet 75 Mg PO HS Vitamin E (Vitamin E Mixed) 400 Unit Capsule 400 Unit PO DAILY Fiber (Methylcellulose) 500 Mg Tablet 500 Mg PO BID Mysoline (Primidone) 50 Mg Tablet 100 Mg PO HS Vitamin D3 (Cholecalciferol (Vitamin D3)) 5,000 Unit Tablet 1 Tab PO DAILY Melatonin 3 Mg Tablet 10 Mg PO QHS Buspirone Hcl 15 Mg Tablet 1 Tab PO TID Gabapentin (Gabapentin) 300 Mg Capsule 300 Mg PO TID Cartia Xt (Diltiazem Hcl) 180 Mg Cap.er.24h 180 Mg PO DAILY Levothyroxine Sodium 150 Mcg Tablet 1 Tab PO DAILY07 Ropinirole Hcl 1 Mg Tablet 1 Mg PO TID Donepezil Hcl 10 Mg Tablet 1 Tab PO HS Duloxetine Hcl 60 Mg Capsule. 60 Mg PO BID Lidoderm (Lidocaine) 700 Mg Adh..patch 1 Patch TP HS Aspir 81 (Aspirin) 81 Mg Tablet. 1 Tab PO DAILY Carbidopa-Levodopa 25-100 Tab (Carbidopa/Levodopa) 1 Each Tablet 3 Tab PO TIDWMEALS Nexium Capsule (Esomeprazole Magnesium) 40 Mg Capsule. 40 Mg PO DAILY Vitals/I & O Vital Sign - Last 24 Hours 03/28/19 03/28/19 03/28/19 03/28/19 07:00 07:37 08:00 08:40 Temp 98.5 98.5 Pulse 79 Resp 20 18 B/P (MAP) 112/73 (86) Pulse Ox 96 97 O2 Delivery Room Air Room Air Room Air 03/28/19 03/28/19 03/28/19 03/28/19 09:14 10:08 10:16 11:00 Temp 98.8 98.8 Pulse 80 83 82 78 Resp 13 18 B/P (MAP) 159/56 (90) Pulse Ox 100 97 O2 Delivery Nasal Cannula Room Air O2 Flow Rate 2.0 03/28/19 03/28/19 03/28/19 03/28/19 11:13 11:14 11:14 15:00 Temp 98.3 98.3 Pulse 82 82 82 82 Resp 18 B/P (MAP) 143/52 143/52 143/52 134/49 (77) Pulse Ox 98 O2 Delivery Room Air 03/28/19 03/28/19 03/28/19 03/28/19 15:18 16:02 19:25 20:00 Temp 98.2 98.2 Pulse 82 84 Resp 17 B/P (MAP) 134/49 152/48 (82) Pulse Ox 97 98 O2 Delivery Room Air Room Air Room Air 03/28/19 03/28/19 03/28/19 03/28/19 20:07 21:58 21:58 21:59 Pulse 84 84 84 B/P (MAP) 152/48 152/48 152/48 Pulse Ox 97 O2 Delivery Room Air 11/22/19 11/22/19 11/23/19 22:57 23:30 03:30 Temp 98.3 98.3 98.3 98.3 Pulse 85 85 Resp 18 18 B/P (MAP) 143/48 (79) 132/63 (86) Pulse Ox 96 96 O2 Delivery Room Air Room Air Room Air O2 Flow Rate 2.0 Intake and Output 03/28/19 03/28/19 03/29/19 14:59 22:59 06:59 Intake Total 950 ml 400 ml Output Total 700 ml 600 ml 1400 ml Balance -700 ml 350 ml -1000 ml PITER BERMUDEZ MD Mar 29, 2019 06:17
[2019-03-29 07:49] VITALS: BP 159/54
[2019-03-29 08:23] LABS: CALCIUM 8.3 mg/dL (8.5-10.1); CREATININE 0.9 mg/dL (0.6-1.0); GFR 61.4; POTASSIUM 4.2 mmol/L (3.5-5.1)
[2019-03-29] MEDS: IV 1/2 NORMAL SALINE 1,000 ML IV SCH ×3 (08:54→21:21)
[2019-03-29] MEDS: CHOLECALCIFEROL (VITAMIN D3) 5,000 UNIT CAPSULE PO SCH (08:55)
[2019-03-29] MEDS: DICLOFENAC SODIUM 1% TOPICAL GEL 100GM TUBE. TP SCH ×2 (08:55→21:23)
[2019-03-29] MEDS: DULoxetine HCL 30 MG CAPSULE.DR PO SCH ×2 (08:56→21:19)
[2019-03-29] MEDS: VITAMIN E 200 UNIT CAPSULE. PO SCH (08:56)
[2019-03-29] MEDS: rOPINIRole 1 MG TABLET. PO SCH ×3 (08:57→21:09)
[2019-03-29] MEDS: MAGNESIUM OXIDE 400 MG TABLET PO SCH (08:57)
[2019-03-29] MEDS: glipiZIDE 5 MG TABLET PO SCH (08:57)
[2019-03-29] MEDS: GABAPENTIN 300 MG CAPSULE. PO SCH ×3 (08:57→21:11)
[2019-03-29] MEDS: MELOXICAM 7.5 MG TABLET PO SCH (08:58)
[2019-03-29] MEDS: METHOCARBAMOL 750 MG TABLET PO SCH ×3 (08:58→21:09)
[2019-03-29] MEDS: LISINOPRIL 20 MG TABLET PO SCH ×2 (08:58→21:10)
[2019-03-29] MEDS: oxyCODONE IR 5 MG TABLET PO SCH ×3 (08:58→21:09)
[2019-03-29] MEDS: FERROUS SULFATE 325 MG TABLET. PO SCH (08:59)
[2019-03-29] MEDS: POLYETHYLENE GLYCOL 3350 17 GM PACKET. PO SCH (08:59)
[2019-03-29] MEDS: FAMOTIDINE 20 MG TABLET. PO SCH (08:59)
[2019-03-29] MEDS: LACTOBACILLUS RHAMNOSUS GG 1 CAPSULE. PO SCH ×2 (08:59→21:10)
[2019-03-29] MEDS: CALCIUM POLYCARBOPHIL 625 MG TABLET PO SCH ×2 (08:59→21:10)
[2019-03-29] MEDS: LORazepam 0.5 MG TABLET PO SCH ×3 (08:59→16:34)
[2019-03-29] MEDS: ASPIRIN ENTERIC COATED 81 MG TABLET.DR. PO SCH (08:59)
[2019-03-29] MEDS: busPIRone 5 MG TABLET. PO SCH ×3 (09:00→21:09)
[2019-03-29] MEDS: CARBIDOPA/LEVODOPA 25/100MG TABLET PO SCH ×3 (09:00→16:34)
[2019-03-29] MEDS: ALBUTEROL SULFATE 2.5 MG/3 ML NEBU. NEB SCH ×4 (09:07→20:43)
[2019-03-29] MEDS: BUDESONIDE 0.5 MG/2 ML NEBU. NEB SCH ×2 (09:07→20:00)
[2019-03-29 11:23] VITALS: BP 148/47
[2019-03-29 13:09] LABS: BASO % 1 % (0-3); EOS # 0.2 x10^3/uL (0.0-0.7); EOS % 3 % (0-3); HEMATOCRIT 29.1 % (36.0-47.0); HEMOGLOBIN 9.9 g/dL (12.0-15.5); LYMPH # 1.3 x10^3/uL (1.0-4.8); LYMPH % 29 % (24-48); MEAN CORPUSCULAR HEMOGLOBIN 31 pg (25-35); MEAN CORPUSCULAR HGB CONC 34 g/dL (31-37); MEAN CORPUSCULAR VOLUME 93 fL (79-100); MONO # 0.4 x10^3/uL (0.0-1.1); MONO % 10 % (0-9); NEUT # 2.5 x10^3/uL (1.8-7.7); NEUT % 57 % (31-73); PLATELET COUNT 338 x10^3/uL (140-400); RED BLOOD COUNT 3.14 x10^6/uL (3.50-5.40); RED CELL DISTRIBUTION WIDTH 14.5 % (11.5-14.5); WHITE BLOOD COUNT 4.5 x10^3/uL (4.0-11.0)
[2019-03-29 13:15] LABS: ALBUMIN 2.9 g/dL (3.4-5.0); ALBUMIN/GLOBULIN RATIO 0.9 (1.0-1.7); CALCIUM 8.4 mg/dL (8.5-10.1); CREATININE 0.9 mg/dL (0.6-1.0); GFR 61.4; POTASSIUM 4.3 mmol/L (3.5-5.1); TOTAL BILIRUBIN 0.4 mg/dL (0.2-1.0)
--- NOTE | 2019-03-29 14:01 | PDOC ---
SUBJECTIVE ROS no complaints OBJECTIVE Vital Signs Vital Signs Date Time Temp Pulse Resp B/P (MAP) Pulse Ox O2 Delivery O2 Flow Rate FiO2 03/29/19 11:56 98 Room Air 03/29/19 11:23 98.7 92 18 148/47 (80) 98.7 03/28/19 22:57 2.0 I & 0 l Intake and Output 03/29/19 06:59 Intake Total 1350 ml Output Total 2700 ml Balance -1350 ml Intake Oral 1350 ml Output Urine Total 2700 ml # Voids 1 PHYSICAL EXAM Physical Exam General: NAD HEENT: OM moist Neck Supple Lungs: Clear to auscultation, non labored Heart: Regular rate 2/6 systolic murmur Abdomen: Soft, No tenderness Extremities: No edema Skin: No Rash Neuro: Per Neurologist Psych/Mental Status: Mood NL No Carbone DIAGNOSIS/ASSESSMENT Assessment & Plan CKD stage 3 - Used to follow with Dr Stinson Stable renal function ,Recd IV Contrast for CTA, No labs this am S/P PCI for Lt CAM this am Monitor for MAU. if dced will need fu labs with PCP next week Lt Renal Art Stenosis- On US CTA in 2018 no e/o of CAM, repeat CTA 03/26 - Left kidney is atrophic with respect to the contralateral side. High-grade stenosis of left main renal artery- s/p Stent HTN- Poorly controlled , control better since adding Lisinopril Card managing , s/p Lt renal art stent Rt Kidney Complex cyst-On US , CTA in 2018- was reported normal CTA 03/26- There is a small hypoenhancing lesion in the anterior left kidney likely a small cyst, but too small to adequately characterize. This measures 3 mm diameter. Pt and daughter want to get a Bx of the cyst, Cysts are not biopsied dw Pt and daughter defer referral to Urology if deemed necessary - defer to PCP Transient Ischemic attack with dysarthria - neuro following Right carotid artery stenosis: moderate per doppler CAD; past stent to PLB, clinically stable PAFIB; currently SR Factor V leiden deficiency COMMENT/RELEVANT DATA Meds Current Medications Medications (Trade) Dose Ordered Sig/Carlene Start Time Stop Time Status Last Admin Dose Admin Acetaminophen (Tylenol) 650 mg PRN Q6HRS PRN 03/28/19 10:45 03/28/19 12:51 650 MG Albuterol Sulfate (Ventolin Neb Soln) 2.5 mg RTQID 03/20/19 08:00 03/29/19 11:55 2.5 MG Aspirin (Children'S Aspirin) 324 mg 1X STAT 03/19/19 17:32 03/19/19 17:39 DC 03/19/19 17:50 324 MG Aspirin (Ecotrin) 81 mg [id number] 03/20/19 08:00 03/29/19 08:59 81 MG Atorvastatin Calcium (Lipitor) 20 mg HS 03/19/19 23:00 03/28/19 21:59 20 MG Atropine Sulfate (ATROPINE 0.5mg SYRINGE) 0.5 mg PRN 1X PRN 03/28/19 10:45 Bisacodyl (Dulcolax Supp) 10 mg PRN DAILY PRN 03/24/19 13:00 Budesonide (Pulmicort) 0.5 mg RTBID 03/20/19 08:00 03/29/19 09:07 0.5 MG Buspirone HCl (Buspar) 15 mg TID 03/19/19 23:00 03/29/19 09:00 15 MG Calcium Polycarbophil (Fibercon) 625 mg BID 03/20/19 09:00 03/29/19 08:59 625 MG Carbidopa/Levodopa (Sinemet 25/100) 3 tab TIDWMEALS 03/19/19 23:00 03/29/19 12:11 3 TAB Clonidine HCl (Catapres) 0.1 mg PRN Q1HR PRN 03/19/19 22:00 03/24/19 10:25 0.1 MG Clopidogrel Bisulfate (Plavix) 75 mg HS 03/19/19 23:00 03/28/19 21:57 75 MG Dextrose (Dextrose 50%-Water Syringe) 12.5 gm PRN Q15MIN PRN 03/21/19 17:00 03/26/19 11:53 12.5 GM Diclofenac Sodium (Voltaren) 1 minnie BID 03/20/19 13:30 03/29/19 08:55 1 MINNIE Diltiazem HCl (Cardizem 24hr Cd) 180 mg DAILY 03/20/19 09:00 03/29/19 08:59 180 MG Diphenhydramine HCl (Benadryl) 25 mg 1X ONCE 03/28/19 09:45 03/28/19 09:46 DC 03/28/19 09:45 25 MG Donepezil HCl (Aricept) 10 mg HS 03/19/19 23:00 03/28/19 21:59 10 MG Duloxetine HCl (Cymbalta) 60 mg BID 03/19/19 23:00 03/29/19 08:56 60 MG Famotidine (Pepcid) 20 mg DAILY 03/21/19 09:00 03/29/19 08:59 20 MG Fentanyl Citrate (Fentanyl 2ml Vial) 25 mcg 1X ONCE 03/28/19 10:45 03/28/19 10:46 DC Ferrous Sulfate (Feosol) 325 mg DAILY 03/20/19 09:00 03/29/19 08:59 325 MG Gabapentin (Neurontin) 300 mg TID 03/19/19 23:00 03/29/19 08:57 300 MG Glipizide (Glucotrol) 2.5 mg DAILY 03/23/19 09:00 03/29/19 08:57 2.5 MG Heparin Sodium (Porcine) (Heparin Sodium) 5,000 unit 1X ONCE 03/28/19 09:15 03/28/19 09:16 DC 03/28/19 09:15 5,000 UNIT Heparin Sodium/ Sodium Chloride 500 ml @ As Directed STK-MED ONCE 03/28/19 09:53 03/28/19 09:54 DC Heparin Sodium/ Sodium Chloride (HEPARIN for ARTERIAL LINE FLUSH) 1,000 unit 1X ONCE 03/28/19 09:00 03/28/19 09:01 DC 03/28/19 08:56 1,000 UNIT Hydralazine HCl (Apresoline Inj) 10 mg 1X ONCE 03/28/19 10:15 03/28/19 10:16 DC 03/28/19 10:08 10 MG Hydralazine HCl (Apresoline) 50 mg TID 03/26/19 14:00 03/29/19 08:58 50 MG Info (CONTRAST GIVEN -- Rx MONITORING) 1 each PRN DAILY PRN 03/27/19 09:00 03/29/19 08:59 DC Iodixanol (Visipaque 320) 100 ml STK-MED ONCE 03/28/19 09:53 03/28/19 09:53 DC Iohexol (Omnipaque 350 Mg/ml) 70 ml 1X ONCE 03/27/19 09:00 03/27/19 09:01 DC 03/27/19 09:24 70 ML Isosorbide Mononitrate (Imdur) 30 mg HS 03/26/19 21:00 03/28/19 21:58 30 MG Labetalol HCl (Trandate) 100 mg BID 03/26/19 14:00 03/27/19 14:10 DC 03/27/19 10:03 100 MG Lactobacillus Rhamnosus (Culturelle) 1 cap BID 03/20/19 21:00 03/28/19 22:00 1 CAP Levofloxacin (Levaquin) 750 mg 1X ONCE 03/21/19 14:00 03/21/19 14:01 DC 03/21/19 13:56 750 MG Levothyroxine Sodium (Synthroid) 150 mcg DAILY06 03/20/19 06:00 03/29/19 06:06 150 MCG Lidocaine (Lidoderm) 1 patch HS 03/19/19 23:00 03/28/19 21:56 1 PATCH Lidocaine HCl (Lidocaine 1% 20ml Vial) 20 ml 1X ONCE 03/28/19 09:00 03/28/19 09:01 DC 03/28/19 08:56 20 ML Lisinopril (Prinivil) 20 mg BID 03/23/19 21:00 03/29/19 08:58 20 MG Lorazepam (Ativan Inj) 1 mg 1X STAT 03/19/19 18:51 03/19/19 18:56 DC 03/19/19 19:33 1 MG Lorazepam (Ativan) 0.5 mg 1X ONCE 03/26/19 12:30 03/26/19 12:31 DC 03/26/19 12:46 0.5 MG Magnesium Hydroxide (Milk Of Magnesia) 2,400 mg 1X ONCE 03/20/19 13:30 03/20/19 13:31 DC 03/20/19 13:20 2,400 MG Magnesium Oxide (Magnesium Oxide) 400 mg DAILY 03/20/19 09:00 03/29/19 08:57 400 MG Meloxicam (Mobic) 7.5 mg DAILY 03/20/19 09:00 03/29/19 08:58 7.5 MG Methocarbamol (Robaxin) 750 mg TID 03/19/19 23:00 03/29/19 08:58 750 MG Midazolam HCl (Versed) 1 mg 1X ONCE 03/28/19 10:45 03/28/19 10:46 DC Mirtazapine (Remeron) 45 mg HS 03/19/19 23:00 03/28/19 21:59 45 MG Non-Formulary Medication (Budesonide/ Formoterol Fumarate (Symbicort 80-4.5 Mcg Inhaler)) 2 puff BID 03/20/19 09:00 UNV Non-Formulary Medication (Melatonin ) 10 mg QHS 03/20/19 21:00 UNV Ondansetron HCl (Zofran) 4 mg PRN Q6HRS PRN 03/22/19 09:45 03/28/19 19:30 4 MG Oxycodone HCl (Roxicodone) 10 mg TID 03/19/19 23:00 03/29/19 08:58 10 MG Pantoprazole Sodium (Protonix) 40 mg DAILYAC 03/20/19 07:30 03/20/19 09:57 DC 03/20/19 09:07 40 MG Pharmacy Consult (C.diff Med Screen By Rx) 1 each 1X ONCE 03/20/19 09:00 03/20/19 09:01 DC Polyethylene Glycol (miraLAX PACKET) 17 gm DAILY 03/20/19 09:00 03/29/19 08:59 17 GM Primidone (Mysoline) 100 mg HS 03/19/19 23:00 03/28/19 21:57 100 MG Ropinirole HCl (Requip) 1 mg TID 03/19/19 23:00 03/29/19 08:57 1 MG Senna/Docusate Sodium (Senna Plus) 1 tab PRN BID PRN 03/22/19 14:45 03/28/19 19:29 1 TAB Sodium Chloride 1,000 ml @ 100 mls/hr Q10H 03/28/19 10:33 03/29/19 08:54 100 MLS/HR Sodium Chloride (Normal Saline Flush) 10 ml QSHIFT PRN 03/28/19 10:45 Vitamin D (Vitamin D3) 5,000 unit DAILY 03/20/19 09:00 03/29/19 08:55 5,000 UNIT Vitamin E (Vitamin E.) 400 unit DAILY 03/20/19 09:00 03/29/19 08:56 400 UNIT Zolpidem Tartrate (Ambien) 5 mg HS 03/19/19 23:00 03/28/19 21:56 5 MG Lab Laboratory Tests Test 03/28/19 16:37 03/28/19 20:43 03/29/19 07:15 03/29/19 07:32 Glucose (Fingerstick) 136 mg/dL (70-99) 149 mg/dL (70-99) 104 mg/dL (70-99) White Blood Count 4.5 x10^3/uL (4.0-11.0) Red Blood Count 3.14 x10^6/uL (3.50-5.40) Hemoglobin 9.9 g/dL (12.0-15.5) Hematocrit 29.1 % (36.0-47.0) Mean Corpuscular Volume 93 fL (79-100) Mean Corpuscular Hemoglobin 31 pg (25-35) Mean Corpuscular Hemoglobin Concent 34 g/dL (31-37) Red Cell Distribution Width 14.5 % (11.5-14.5) Platelet Count 338 x10^3/uL (140-400) Neutrophils (%) (Auto) 57 % (31-73) Lymphocytes (%) (Auto) 29 % (24-48) Monocytes (%) (Auto) 10 % (0-9) Eosinophils (%) (Auto) 3 % (0-3) Basophils (%) (Auto) 1 % (0-3) Neutrophils # (Auto) 2.5 x10^3/uL (1.8-7.7) Lymphocytes # (Auto) 1.3 x10^3/uL (1.0-4.8) Monocytes # (Auto) 0.4 x10^3/uL (0.0-1.1) Eosinophils # (Auto) 0.2 x10^3/uL (0.0-0.7) Basophils # (Auto) 0.0 x10^3/uL (0.0-0.2) Sodium Level 139 mmol/L (136-145) Potassium Level 4.3 mmol/L (3.5-5.1) Chloride Level 103 mmol/L (98-107) Carbon Dioxide Level 26 mmol/L (21-32) Anion Gap 10 (6-14) Blood Urea Nitrogen 12 mg/dL (7-20) Creatinine 0.9 mg/dL (0.6-1.0) Estimated GFR (Cockcroft-Gault) 61.4 BUN/Creatinine Ratio 13 (6-20) Glucose Level 104 mg/dL (70-99) Calcium Level 8.4 mg/dL (8.5-10.1) Total Bilirubin 0.4 mg/dL (0.2-1.0) Aspartate Amino Transf (AST/SGOT) 25 U/L (15-37) Alanine Aminotransferase (ALT/SGPT) 28 U/L (14-59) Alkaline Phosphatase 104 U/L (46-116) Total Protein 6.0 g/dL (6.4-8.2) Albumin 2.9 g/dL (3.4-5.0) Albumin/Globulin Ratio 0.9 (1.0-1.7) Test 03/29/19 11:15 03/29/19 11:52 Glucose (Fingerstick) 61 mg/dL (70-99) 76 mg/dL (70-99) Results All relevant outside records, renal labs, imaging studies, telemetry/EKG's were reviewed. TAISHA GARCIA MD Mar 29, 2019 14:01
[2019-03-29 14:25] VITALS: BP 125/42
--- NOTE | 2019-03-29 17:45 | PDOC ---
CARDIOLOGY PROGRESS NOTE SUBJECTIVE: No acute events overnight. Denies any chest pain or right groin pain. OBJECTIVE: Vital Signs/I&O: Vital Signs Date Time Temp Pulse Resp B/P (MAP) Pulse Ox O2 Delivery O2 Flow Rate FiO2 03/29/19 16:27 99 Room Air 03/29/19 14:25 98.4 79 18 125/42 (69) 98.4 03/28/19 22:57 2.0 I & O 03/28/19 03/28/19 03/29/19 15:00 23:00 07:00 Intake Total 950 ml 400 ml Output Total 700 ml 600 ml 1400 ml Balance -700 ml 350 ml -1000 ml Objective: Right groin site is clean, dry and intact. Normal heart tones. Lung martinez are clear abdomen is soft CURRENT MEDICATIONS: Imdur, lisinopril, hydralazine, Plavix, aspirin, clonidine when necessary and atorvastatin DIAGNOSTIC TESTING: Successful left renal artery stenting yesterday Labs: Laboratory Tests 03/29/19 07:15 Laboratory Tests Test 03/28/19 20:43 03/29/19 07:15 03/29/19 07:32 03/29/19 11:15 Glucose (Fingerstick) 149 mg/dL (70-99) H 104 mg/dL (70-99) H 61 mg/dL (70-99) L White Blood Count 4.5 x10^3/uL (4.0-11.0) Red Blood Count 3.14 x10^6/uL (3.50-5.40) L Hemoglobin 9.9 g/dL (12.0-15.5) L Hematocrit 29.1 % (36.0-47.0) L Mean Corpuscular Volume 93 fL (79-100) Mean Corpuscular Hemoglobin 31 pg (25-35) Mean Corpuscular Hemoglobin Concent 34 g/dL (31-37) Red Cell Distribution Width 14.5 % (11.5-14.5) Platelet Count 338 x10^3/uL (140-400) Neutrophils (%) (Auto) 57 % (31-73) Lymphocytes (%) (Auto) 29 % (24-48) Monocytes (%) (Auto) 10 % (0-9) H Eosinophils (%) (Auto) 3 % (0-3) Basophils (%) (Auto) 1 % (0-3) Neutrophils # (Auto) 2.5 x10^3/uL (1.8-7.7) Lymphocytes # (Auto) 1.3 x10^3/uL (1.0-4.8) Monocytes # (Auto) 0.4 x10^3/uL (0.0-1.1) Eosinophils # (Auto) 0.2 x10^3/uL (0.0-0.7) Basophils # (Auto) 0.0 x10^3/uL (0.0-0.2) Sodium Level 139 mmol/L (136-145) Potassium Level 4.3 mmol/L (3.5-5.1) Chloride Level 103 mmol/L (98-107) Carbon Dioxide Level 26 mmol/L (21-32) Anion Gap 10 (6-14) Blood Urea Nitrogen 12 mg/dL (7-20) Creatinine 0.9 mg/dL (0.6-1.0) Estimated GFR (Cockcroft-Gault) 61.4 BUN/Creatinine Ratio 13 (6-20) Glucose Level 104 mg/dL (70-99) H Calcium Level 8.4 mg/dL (8.5-10.1) L Total Bilirubin 0.4 mg/dL (0.2-1.0) Aspartate Amino Transf (AST/SGOT) 25 U/L (15-37) Alkaline Phosphatase 104 U/L (46-116) Total Protein 6.0 g/dL (6.4-8.2) L Albumin 2.9 g/dL (3.4-5.0) L Albumin/Globulin Ratio 0.9 (1.0-1.7) L Test 03/29/19 11:52 03/29/19 16:59 Glucose (Fingerstick) 76 mg/dL (70-99) 110 mg/dL (70-99) H ASSESSMENT: 1. Hypertension; hypotensive this afternoon 2. Possible CVA with dysarthria, weakness. improved 3. Metabolic Encephalopathy: resolved 4. HX of CVA and seizures 5. Right carotid artery stenosis: moderate per doppler 6. Renal artery stenosis; unilateral s/p PVI 7. Hx of CV/and parkinsons/dementia 8. CAD; past stent to PLB, clinically stable 9. Hyperlipidemia 10. PAFIB; currently SR 11. PPM in situ: ([facility]) 12. factor V leiden deficiency PLAN: 1. Doing well status post left renal artery stenting. Continue medical therapy per primary team and nephrology. Supportive care from a cardiac standpoint. Follow-up in the office. Please call with any further questions. CHRISTOPHER DAO MD Mar 29, 2019 17:45
[2019-03-29 19:35] VITALS: BP 186/54
[2019-03-29] MEDS: MIRTAZAPINE 15 MG TABLET PO SCH (21:09)
[2019-03-29] MEDS: DONEPEZIL HCL 10 MG TABLET. PO SCH (21:09)
[2019-03-29] MEDS: ZOLPIDEM 5 MG TABLET. PO SCH (21:10)
[2019-03-29] MEDS: CLOPIDOGREL BISULFATE 75 MG TABLET PO SCH (21:10)
[2019-03-29] MEDS: PRIMIDONE 50 MG TABLET PO SCH (21:10)
[2019-03-29] MEDS: ISOSORBIDE MONONITRATE ER 30 MG TAB.ER.24H PO SCH (21:11)
[2019-03-29] MEDS: LIDOCAINE (700MG/PATCH) PATCH. TP SCH (21:11)
[2019-03-29] MEDS: ATORVASTATIN CALCIUM 20 MG TABLET PO SCH (21:11)
[2019-03-29 23:55] VITALS: BP 134/48
[2019-03-30 03:38] VITALS: BP 149/59
[2019-03-30] MEDS: LEVOTHYROXINE 150 MCG TABLET PO SCH (06:20)
[2019-03-30] MEDS: IV 1/2 NORMAL SALINE 1,000 ML IV SCH (06:24)
[2019-03-30 07:00] VITALS: BP 169/56
[2019-03-30] MEDS: BUDESONIDE 0.5 MG/2 ML NEBU. NEB SCH (08:16)
[2019-03-30] MEDS: ALBUTEROL SULFATE 2.5 MG/3 ML NEBU. NEB SCH ×2 (08:16→11:56)
[2019-03-30] MEDS: POLYETHYLENE GLYCOL 3350 17 GM PACKET. PO SCH (09:18)
[2019-03-30] MEDS: FAMOTIDINE 20 MG TABLET. PO SCH (09:19)
[2019-03-30] MEDS: CARBIDOPA/LEVODOPA 25/100MG TABLET PO SCH ×2 (09:19→11:59)
[2019-03-30] MEDS: oxyCODONE IR 5 MG TABLET PO SCH (09:19)
[2019-03-30] MEDS: DICLOFENAC SODIUM 1% TOPICAL GEL 100GM TUBE. TP SCH (09:19)
[2019-03-30] MEDS: DULoxetine HCL 30 MG CAPSULE.DR PO SCH (09:19)
[2019-03-30] MEDS: MAGNESIUM OXIDE 400 MG TABLET PO SCH (09:19)
[2019-03-30] MEDS: LORazepam 0.5 MG TABLET PO SCH ×2 (09:19→11:59)
[2019-03-30] MEDS: VITAMIN E 200 UNIT CAPSULE. PO SCH (09:19)
[2019-03-30] MEDS: busPIRone 5 MG TABLET. PO SCH (09:19)
[2019-03-30] MEDS: GABAPENTIN 300 MG CAPSULE. PO SCH (09:19)
[2019-03-30] MEDS: ASPIRIN ENTERIC COATED 81 MG TABLET.DR. PO SCH (09:20)
[2019-03-30] MEDS: MELOXICAM 7.5 MG TABLET PO SCH (09:20)
[2019-03-30] MEDS: glipiZIDE 5 MG TABLET PO SCH (09:20)
[2019-03-30] MEDS: METHOCARBAMOL 750 MG TABLET PO SCH (09:20)
[2019-03-30] MEDS: LISINOPRIL 20 MG TABLET PO SCH (09:20)
[2019-03-30] MEDS: LACTOBACILLUS RHAMNOSUS GG 1 CAPSULE. PO SCH (09:21)
[2019-03-30] MEDS: FERROUS SULFATE 325 MG TABLET. PO SCH (09:21)
[2019-03-30] MEDS: CALCIUM POLYCARBOPHIL 625 MG TABLET PO SCH (09:21)
[2019-03-30] MEDS: CHOLECALCIFEROL (VITAMIN D3) 5,000 UNIT CAPSULE PO SCH (09:21)
[2019-03-30] MEDS: rOPINIRole 1 MG TABLET. PO SCH (09:21)
[2019-03-30 11:00] VITALS: BP 150/50
--- NOTE | 2019-03-30 11:54 | PDOC ---
[facility] PROGRESS NOTE Chief Complaint Chief Complaint Transient ischemic attack History of Present Illness History of Present Illness 03/30/19 Pt seen and examined at bedside. Patient care discussed with RN. Pt notes back pain. Says she has ride coming to pick her up today. Vitals/I&O Vitals/I&O: Vital Signs Date Time Temp Pulse Resp B/P (MAP) Pulse Ox O2 Delivery O2 Flow Rate FiO2 03/30/19 11:00 98.4 92 16 150/50 (83) 94 Room Air 98.4 I & O 03/29/19 03/29/19 03/30/19 15:00 23:00 07:00 Intake Total 380 ml 650 ml 100 ml Output Total 700 ml 1150 ml 500 ml Balance -320 ml -500 ml -400 ml Physical Exam General: Alert, Cooperative, No acute distress Heart: Regular rate, No murmurs Lungs: Clear, Other (No respiratory distress) Abdomen: Normal bowel sounds, Soft, No tenderness Extremities: No clubbing, No cyanosis Skin: Other (No rashes or significant lesion on visible skin) Labs Labs: Laboratory Tests Test 03/29/19 11:52 03/29/19 16:59 03/29/19 20:33 03/30/19 07:14 Glucose (Fingerstick) 76 mg/dL (70-99) 110 mg/dL (70-99) 92 mg/dL (70-99) 112 mg/dL (70-99) Test 03/30/19 11:02 Glucose (Fingerstick) 92 mg/dL (70-99) Review of Systems Review of Systems: Neurologic: Denies headache GI: Denies abdominal pain Cardiovascular: Denies chest pain Assessment and Plan Assessmemt and Plan Problems Medical Problems: (1) Acute focal neurological deficit, onset within 3-24 hours Status: Acute (2) TIA (transient ischemic attack) Status: Acute PLAN - Patient preparing to be discharged today Comment Review of Relevant I have reviewed the following items dina (where applicable) has been applied. EWA CHAPPELL III DO Mar 30, 2019 11:54
--- NOTE | 2019-03-30 12:30 | NUR ---
Discharge Note: LAYLA ROSSI [address] [place] [address] Discharge instructions and discharge home medications reviewed with Patient and a copy given. All questions have been answered and understanding verbalized. The following instructions and handouts were given: F/U WITH PCP WITHIN TWO WEEKS. F/U WITH DR. GUZMAN SCHEDULED. Discontinued lines and drains: Peripheral IV intact. Patient discharged to Home or Self Care with Family Member via Wheelchair.
--- NOTE | 2019-03-30 12:40 | DS ---
DATE OF DISCHARGE: 03/30/2019 ADMISSION DIAGNOSIS: Transient ischemic attack. DISCHARGE DIAGNOSES: Resolving transient ischemic attack, hypertension, resolving metabolic encephalopathy, history of old stroke and seizures, right carotid artery stenosis, renal artery stenosis, coronary artery disease, hyperlipidemia, atrial fibrillation, permanent pacemaker, factor V Leiden deficiency. CONSULTS: Cardiology, Nephrology and Neurology. HOSPITAL COURSE: The patient is a pleasant elderly female who presented with TIA symptoms. She was admitted. The above consults were obtained. We did physical therapy and occupational therapy, got her home meds resumed. Over the past few days, she has returned to baseline with plan to discharge home if okay with consultants. DISPOSITION: Home. ACTIVITY: As tolerated. MEDICATIONS: Please see the MRAD. TOTAL TIME: 32 minutes. EWA CHAPPELL DO DR: BRIANA/baldomero JOB#: [id number] / [id number]
== END 2019-03-30 12:30 | disposition home or self-care (01) | DRG 37 ==
LOC: ER 16:00 → 6 SOUTH 19:00
PROVIDERS: ADMIT Internal Medicine; ATTEND Internal Medicine
PROC: B2151ZZ Fluoroscopy of Left Heart using Low Osmolar Contrast (ICD-10-PCS; 2019-03-20)
PROC: B245ZZZ Ultrasonography of Left Heart (ICD-10-PCS; 2019-03-20)
PROC: 047A3DZ Dilation of Left Renal Artery with Intraluminal Device, Percutaneous Approach (ICD-10-PCS; principal; 2019-03-28)
PROC: B4181ZZ Fluoroscopy of Bilateral Renal Arteries using Low Osmolar Contrast (ICD-10-PCS; 2019-03-28)
DX: G45.9 Transient cerebral ischemic attack, unspecified (principal); G93.41 Metabolic encephalopathy; N17.0 Acute kidney failure with tubular necrosis; E87.1 Hypo-osmolality and hyponatremia; D68.51 Activated protein C resistance; G81.94 Hemiplegia, unspecified affecting left nondominant side; I48.21 Permanent atrial fibrillation; I42.8 Other cardiomyopathies; F32.9 Major depressive disorder, single episode, unspecified; F41.9 Anxiety disorder, unspecified; G89.29 Other chronic pain; H40.9 Unspecified glaucoma; K21.9 Gastro-esophageal reflux disease without esophagitis; K58.9 Irritable bowel syndrome, unspecified; G20 Parkinson's disease; I25.10 Atherosclerotic heart disease of native coronary artery without angina pectoris; E78.5 Hyperlipidemia, unspecified; E03.9 Hypothyroidism, unspecified; I70.1 Atherosclerosis of renal artery; I10 Essential (primary) hypertension; E66.01 Morbid (severe) obesity due to excess calories; Z68.32 Body mass index [BMI] 32.0-32.9, adult; H57.02 Anisocoria; J44.9 Chronic obstructive pulmonary disease, unspecified; E11.649 Type 2 diabetes mellitus with hypoglycemia without coma; K59.00 Constipation, unspecified; G40.909 Epilepsy, unspecified, not intractable, without status epilepticus; F02.80 Dementia in other diseases classified elsewhere, unspecified severity, without behavioral disturbance, psychotic disturbance, mood disturbance, and anxiety; G25.0 Essential tremor; N28.9 Disorder of kidney and ureter, unspecified; Z96.653 Presence of artificial knee joint, bilateral; Z98.42 Cataract extraction status, left eye; Z98.41 Cataract extraction status, right eye; Z79.82 Long term (current) use of aspirin; Z79.02 Long term (current) use of antithrombotics/antiplatelets; Z87.11 Personal history of peptic ulcer disease; Z95.0 Presence of cardiac pacemaker; Z90.710 Acquired absence of both cervix and uterus; I25.2 Old myocardial infarction; Z95.5 Presence of coronary angioplasty implant and graft; Z86.718 Personal history of other venous thrombosis and embolism; Z88.2 Allergy status to sulfonamides; Z88.8 Allergy status to other drugs, medicaments and biological substances; Z82.0 Family history of epilepsy and other diseases of the nervous system
CPT/HCPCS: 36252; 96374; 99285; G0269; 36415; 37236; 70450; 71046; 74174; 76770; 80048; 80053; 80061; 80069; 81001; 82607; 82962; 83036; 83605; 83735; 84300; 84443; 84484; 85025; 85027; 85610; 85730; 93005; 94640; 94760; 95816; 99152; 99153; C1725; C1760; C1769; C1876; C1887; C1892; J0360; J1200; J1644; J2060; J2250; J2405; J3010; J7030; J7040; J7042; J7613; J7626; Q9967; 97110; 97116; 97530; 97535; C1771; G0378

== ENCOUNTER 2019-05-05 17:34 | Emergency (ER) | payer MEDICARE ==
[~2019-05-05] VITALS: Ht 160 cm; Wt 83.9 kg
[2019-05-05 19:05] VITALS: BP 168/82
--- NOTE | 2019-05-06 03:00 | PHYS DOC ---
Past Medical History Past Medical History: Anxiety, CAD, CVA, Depression, Diabetes-Type II, DVT, Hypothyroid, OK, Stroke, Other Additional Past Medical Histor: PARKINSON'S, GASTROPARESIS, CHRONIC BACK PAIN;factor V Past Surgical History: , Hysterectomy, Knee Replacement, Pacemaker, Tonsillectomy Additional Past Surgical Histo: CARDIAC STENT, BLADDER SX, BOWEL RESECTION, RIGHT SHOULDER SX, CATARACT SX Alcohol Use: None Drug Use: None Adult General Chief Complaint Chief Complaint: HYPERTENSION HPI HPI Patient is a 74 year old history of stroke, and Parkinson's who presents to the ED with palpation over forearms. Patient's accompanied at bedside by her grand daughter. Patient was evaluated by her PCP earlier this afternoon and sent to the hospital with patient does not have any acute symptoms or complaints at this time. Additional history is obtained from the patient's granddaughter. [] Review of Systems Review of Systems Review symptoms as per history of present illness. All other review symptoms are negative. All other systems were reviewed and found to be within normal limits, except as documented in this note. Allergies Allergies Allergies Coded Allergies Type Severity Reaction Last Updated Verified Sulfa (Sulfonamide Antibiotics) Allergy Intermediate hives 11/01/17 Yes dexamethasone Allergy Intermediate 11/01/17 Yes Physical Exam Physical Exam Constitutional: Well developed, well nourished, no acute distress, non-toxic appearance. [] HENT: Normocephalic, atraumatic, bilateral external ears normal, oropharynx moist, no oral exudates, nose normal. [] Eyes: PERRLA, EOMI, conjunctiva normal, no discharge. [] Neck: Normal range of motion,. [] Cardiovascular:Heart rate regular rhythm, no murmur [], Lungs & Thorax: Bilateral breath sounds clear to auscultation [] Abdomen: Bowel sounds normal, soft, no tenderness. [] Skin: Warm, dry, no erythema, no rash. [] Back: No tenderness. [] Extremities: No tenderness, no cyanosis, no clubbing, ROM intact, no edema. [] Neurologic: Alert and oriented X 1, normal motor function, normal sensory function, no focal deficits noted. [] Psychologic: Affect normal, judgement normal, mood normal. [] Current Patient Data Vital Signs Vital Signs Date Time Temp Pulse Resp B/P (MAP) Pulse Ox O2 Delivery O2 Flow Rate FiO2 12/30/19 19:05 98.8 58 17 168/82 (110) 96 Room Air 98.8 EKG EKG [EKG: Reviewed] Radiology/Procedures Radiology/Procedures [] Course & Med Decision Making Course & Med Decision Making Pertinent Labs and Imaging studies reviewed. (See chart for details) [Patient granddaughter confused as to whether patient was meant to be seen in the emergency department or have outpatient labs obtained. Patient is asymptomatic. Dr. Gabriel contacted who outpatient labs will see the patient in follow-up.] Dragon Disclaimer Dragon Disclaimer This electronic medical record was generated, in whole or in part, using a voice recognition dictation system. Departure Departure Impression: Primary Impression: Encounter for medical screening examination Disposition: HOME, SELF-CARE Condition: STABLE Patient Instructions: Medical Screening Exam Additional Instructions: Codi was evaluated in the emergency department and a medical screening exam was performed. Codi does not currently have an acute life threatening medical condition. Dr. Gabriel's office was contacted and has the requested that the out outpatient labss ordered by his office by drawn. Please follow-up with Dr. Gabriel's office tomorrow for results and for further management of chronic conditions. DELL TORRES DO May 06, 2019 03:00
== END 2019-05-05 21:40 | disposition home or self-care (01) ==
LOC: ER 17:34
DX: Z00.8 Encounter for other general examination (principal); M79.632 Pain in left forearm; M79.631 Pain in right forearm; F41.9 Anxiety disorder, unspecified; G89.29 Other chronic pain; I25.10 Atherosclerotic heart disease of native coronary artery without angina pectoris; E11.9 Type 2 diabetes mellitus without complications; Z86.718 Personal history of other venous thrombosis and embolism; E03.9 Hypothyroidism, unspecified; I25.2 Old myocardial infarction; G20 Parkinson's disease; Z86.73 Personal history of transient ischemic attack (TIA), and cerebral infarction without residual deficits; Z95.0 Presence of cardiac pacemaker; Z88.2 Allergy status to sulfonamides; Z88.8 Allergy status to other drugs, medicaments and biological substances
CPT/HCPCS: 99281

== ENCOUNTER → 2019-05-05 | Outpatient (CLI) | payer MEDICARE ==
[~2019-05-05] MED LIST changes: +ATOR20TA58 PO; +CLON0.1T PO; +FLECTOR1 EACH TP; +GLIP5TAB10 PO; +MAGN400T44 PO; +MIRT45TA58 PO
[2019-05-05 21:48] LABS: BASO % 1 % (0-3); EOS # 0.1 x10^3/uL (0.0-0.7); EOS % 1 % (0-3); HEMATOCRIT 33.4 % (36.0-47.0); HEMOGLOBIN 11.2 g/dL (12.0-15.5); LYMPH # 1.7 x10^3/uL (1.0-4.8); LYMPH % 25 % (24-48); MEAN CORPUSCULAR HEMOGLOBIN 31 pg (25-35); MEAN CORPUSCULAR HGB CONC 34 g/dL (31-37); MEAN CORPUSCULAR VOLUME 93 fL (79-100); MONO # 0.6 x10^3/uL (0.0-1.1); MONO % 9 % (0-9); NEUT # 4.3 x10^3/uL (1.8-7.7); NEUT % 64 % (31-73); PLATELET COUNT 294 x10^3/uL (140-400); RED BLOOD COUNT 3.58 x10^6/uL (3.50-5.40); RED CELL DISTRIBUTION WIDTH 15.1 % (11.5-14.5); WHITE BLOOD COUNT 6.7 x10^3/uL (4.0-11.0)
[2019-05-05 22:02] LABS: ALBUMIN 3.3 g/dL (3.4-5.0); ALBUMIN/GLOBULIN RATIO 0.9 (1.0-1.7); CALCIUM 8.7 mg/dL (8.5-10.1); GFR 54.3; PHOSPHORUS 3.6 mg/dL (2.6-4.7); TOTAL BILIRUBIN 0.3 mg/dL (0.2-1.0)
== END | disposition home or self-care (01) ==
LOC: LAB 20:56
PROVIDERS: ATTEND Nurse Practitioner Adult Health
DX: I10 Essential (primary) hypertension (principal)
CPT/HCPCS: 36415; 80053; 84100; 85025

== ENCOUNTER 2019-07-12 20:33 | Emergency (ER) | payer MEDICARE ==
[~2019-07-12] VITALS: Ht 165.1 cm; Wt 69.0 kg
[~2019-07-12 20:33] MED LIST changes: +MELA3TAB4 PO; -MELA3TAB56 PO; -ROPI1TAB2 PO; +ROPI1TAB4 PO
[2019-07-12] MEDS ORDERED: IV NORMAL SALINE 1000ML BAG 1,000 ML IV ONE (21:00)
[2019-07-12 21:07] LABS: BASO # 0.1 x10^3/uL (0.0-0.2); BASO % 1 % (0-3); EOS # 0.1 x10^3/uL (0.0-0.7); EOS % 1 % (0-3); HEMATOCRIT 33.6 % (36.0-47.0); HEMOGLOBIN 11.2 g/dL (12.0-15.5); LYMPH # 1.7 x10^3/uL (1.0-4.8); LYMPH % 22 % (24-48); MEAN CORPUSCULAR HEMOGLOBIN 31 pg (25-35); MEAN CORPUSCULAR HGB CONC 33 g/dL (31-37); MEAN CORPUSCULAR VOLUME 93 fL (79-100); MONO # 0.5 x10^3/uL (0.0-1.1); MONO % 6 % (0-9); NEUT # 5.3 x10^3/uL (1.8-7.7); NEUT % 70 % (31-73); PLATELET COUNT 313 x10^3/uL (140-400); RED BLOOD COUNT 3.63 x10^6/uL (3.50-5.40); RED CELL DISTRIBUTION WIDTH 13.4 % (11.5-14.5); WHITE BLOOD COUNT 7.5 x10^3/uL (4.0-11.0)
[2019-07-12 21:18] LABS: CALCIUM 8.8 mg/dL (8.5-10.1); GFR 54.3; POTASSIUM 4.4 mmol/L (3.5-5.1)
--- NOTE | 2019-07-12 21:20 | RAD ---
Exam: Chest one view INDICATION: Hypotension TECHNIQUE: Frontal view of the chest Comparisons: 03/19/2019 FINDINGS: Pacer with leads terminating the right atrium and ventricle. The cardiomediastinal silhouette and pulmonary vessels are within normal limits. The lung and pleural spaces are clear. IMPRESSION: No acute cardiopulmonary process. Electronically signed by: Doron Villalobos MD (07/12/2019 9:17 PM) [id number]
[2019-07-12 21:24] LABS: ALBUMIN 3.2 g/dL (3.4-5.0); ALBUMIN/GLOBULIN RATIO 1.1 (1.0-1.7); MAGNESIUM 2.1 mg/dL (1.8-2.4); TOTAL BILIRUBIN 0.3 mg/dL (0.2-1.0); TOTAL PROTEIN 6.1 g/dL (6.4-8.2)
[2019-07-12 22:01] LABS: BILIRUBIN,URINE NEGATIVE (NEG); CLARITY,URINE CLOUDY; COLOR,URINE YELLOW; NITRITE,URINE NEGATIVE (NEG); PROTEIN,URINE NEGATIVE (NEG-TRACE); UROBILINOGEN,URINE 0.2 mg/dL (0.2 mg/dL)
[2019-07-12 22:08] LABS: BARBITURATES NEG (NEG); BENZODIAZEPINES NEG (NEG); CANNABINOIDS NEG (NEG); COCAINE NEG (NEG); METHADONE NEG (NEG); OPIATES NEG (NEG); PHENCYCLIDINE NEG (NEG)
[2019-07-12 22:11] LABS: BACTERIA,URINE 0 /HPF (0-FEW); RBC,URINE 0 /HPF (0-2); SQUAMOUS EPITHELIAL CELL,UR FEW /LPF; WBC,URINE RARE /HPF (0-4)
[2019-07-12 22:15] LABS: AMPHETAMINE/METHAMPHETAMINE NEG (NEG)
--- NOTE | 2019-07-12 22:44 | PHYS DOC ---
Past Medical History Past Medical History: Anxiety, CAD, CVA, Depression, Diabetes-Type II, DVT, High Cholesterol, Hypertension, Hypothyroid, IL, Renal Disease, Stroke, Other Additional Past Medical Histor: PARKINSON'S, GASTROPARESIS, CHRONIC BACK PAIN;factor V Past Surgical History: , Hysterectomy, Knee Replacement, Pacemaker, Tonsillectomy Additional Past Surgical Histo: CARDIAC STENT, BLADDER SX, BOWEL RESECTION, RIGHT SHOULDER SX, CATARACT SX Smoking Status: Former Smoker Alcohol Use: None Drug Use: None Adult General Chief Complaint Chief Complaint: HYPOTENSION HPI HPI Patient is a 74 year old female with a history of multiple medical problems including anxiety, CAD, hypertension, diabetes type 2, high cholesterol, IL among other illnesses who presents today complaining of hypotension. Patient reports taking 3 blood pressure medicines this evening including metoprolol which was started yesterday. She reports her blood pressure went down as low as 82/48 and she felt tired and dizzy. Denies any chest pain or shortness of b reath. She remembers taking lisinopril, metoprolol and one other medicine she cannot remember right now. Review of Systems Review of Systems Constitutional: Denies fever or chills [] Eyes: Denies change in visual acuity, redness, or eye pain [] HENT: Denies nasal congestion or sore throat [] Respiratory: Denies cough or shortness of breath [] Cardiovascular: Reports hypotension. No additional information not addressed in HPI [] GI: Denies abdominal pain, nausea, vomiting, bloody stools or diarrhea [] : Denies dysuria or hematuria [] Musculoskeletal: Denies back pain or joint pain [] Integument: Denies rash or skin lesions [] Neurologic: Denies headache, focal weakness or sensory changes [] All other systems were reviewed and found to be within normal limits, except as documented in this note. Current Medications Current Medications Current Medications Medications (Trade) Dose Ordered Sig/Carlene Start Time Stop Time Status Last Admin Dose Admin Sodium Chloride 1,000 ml @ 1,000 mls/hr 1X ONCE 07/12/19 21:00 07/12/19 21:59 DC 07/12/19 21:59 1,000 MLS/HR Allergies Allergies Allergies Coded Allergies Type Severity Reaction Last Updated Verified Sulfa (Sulfonamide Antibiotics) Allergy Intermediate hives 11/01/17 Yes dexamethasone Allergy Intermediate 11/01/17 Yes Physical Exam Physical Exam Constitutional: Well developed, well nourished, no acute distress, non-toxic appearance. [] HENT: Normocephalic, atraumatic, bilateral external ears normal, oropharynx moist, no oral exudates, nose normal. [] Eyes: PERRLA, EOMI, conjunctiva normal, no discharge. [] Neck: Normal range of motion, no tenderness, supple, no stridor. [] Cardiovascular:Heart rate regular rhythm, no murmur [] Lungs & Thorax: Bilateral breath sounds clear to auscultation [] Abdomen: Bowel sounds normal, soft, no tenderness, no masses, no pulsatile masses. [] Skin: Warm, dry, no erythema, no rash. [] Back: No tenderness, no CVA tenderness. [] Extremities: No tenderness, no cyanosis, no clubbing, ROM intact, no edema. [] Neurologic: Alert and oriented X 3, normal motor function, normal sensory function, no focal deficits noted. Cranial nerves II through XII intact Psychologic: Affect normal, judgement normal, mood normal. [] Current Patient Data Vital Signs Vital Signs Date Time Temp Pulse Resp B/P (MAP) Pulse Ox O2 Delivery O2 Flow Rate FiO2 07/12/19 21:01 97.4 64 16 164/71 (102) 99 Room Air 97.4 Lab Values Laboratory Tests Test 07/12/19 20:55 07/12/19 21:49 White Blood Count 7.5 x10^3/uL (4.0-11.0) Red Blood Count 3.63 x10^6/uL (3.50-5.40) Hemoglobin 11.2 g/dL (12.0-15.5) L Hematocrit 33.6 % (36.0-47.0) L Mean Corpuscular Volume 93 fL (79-100) Mean Corpuscular Hemoglobin 31 pg (25-35) Mean Corpuscular Hemoglobin Concent 33 g/dL (31-37) Red Cell Distribution Width 13.4 % (11.5-14.5) Platelet Count 313 x10^3/uL (140-400) Neutrophils (%) (Auto) 70 % (31-73) Lymphocytes (%) (Auto) 22 % (24-48) L Monocytes (%) (Auto) 6 % (0-9) Eosinophils (%) (Auto) 1 % (0-3) Basophils (%) (Auto) 1 % (0-3) Neutrophils # (Auto) 5.3 x10^3/uL (1.8-7.7) Lymphocytes # (Auto) 1.7 x10^3/uL (1.0-4.8) Monocytes # (Auto) 0.5 x10^3/uL (0.0-1.1) Eosinophils # (Auto) 0.1 x10^3/uL (0.0-0.7) Basophils # (Auto) 0.1 x10^3/uL (0.0-0.2) Sodium Level 135 mmol/L (136-145) L Potassium Level 4.4 mmol/L (3.5-5.1) Chloride Level 99 mmol/L (98-107) Carbon Dioxide Level 27 mmol/L (21-32) Anion Gap 9 (6-14) Blood Urea Nitrogen 24 mg/dL (7-20) H Creatinine 1.0 mg/dL (0.6-1.0) Estimated GFR (Cockcroft-Gault) 54.3 BUN/Creatinine Ratio 24 (6-20) H Glucose Level 104 mg/dL (70-99) H Calcium Level 8.8 mg/dL (8.5-10.1) Magnesium Level 2.1 mg/dL (1.8-2.4) Total Bilirubin 0.3 mg/dL (0.2-1.0) Aspartate Amino Transferase (AST) 20 U/L (15-37) Alanine Aminotransferase (ALT) 8 U/L (14-59) L Alkaline Phosphatase 127 U/L (46-116) H Creatine Kinase 149 U/L (26-192) Creatine Kinase MB (Mass) 2.2 ng/mL (0.0-3.6) Creatine Kinase MB Relative Index 1.5 % (0-4) Troponin I Quantitative < 0.017 ng/mL (0.000-0.055) GJ-Cve-D-Type Natriuretic Peptide 1135 pg/mL (0-124) H Total Protein 6.1 g/dL (6.4-8.2) L Albumin 3.2 g/dL (3.4-5.0) L Albumin/Globulin Ratio 1.1 (1.0-1.7) Thyroid Stimulating Hormone (TSH) 0.402 uIU/mL (0.358-3.74) Urine Collection Type Unknown Urine Color Yellow Urine Clarity Cloudy Urine pH 6.0 Urine Specific [place] 1.010 Urine Protein Negative mg/dL (NEG-TRACE) Urine Glucose (UA) Negative mg/dL (NEG) Urine Ketones (Stick) Negative mg/dL (NEG) Urine Blood Negative (NEG) Urine Nitrite Negative (NEG) Urine Bilirubin Negative (NEG) Urine Urobilinogen Dipstick 0.2 mg/dL (0.2 mg/dL) Urine Leukocyte Esterase Negative (NEG) Urine RBC 0 /HPF (0-2) Urine WBC Rare /HPF (0-4) Urine Squamous Epithelial Cells Few /LPF Urine Bacteria 0 /HPF (0-FEW) Urine Opiates Screen Neg (NEG) Urine Methadone Screen Neg (NEG) Urine Barbiturates Neg (NEG) Urine Phencyclidine Screen Neg (NEG) Urine Amphetamine/Methamphetamine Neg (NEG) Urine Benzodiazepines Screen Neg (NEG) Urine Cocaine Screen Neg (NEG) Urine Cannabinoids Screen Neg (NEG) Urine Ethyl Alcohol Neg (NEG) Laboratory Tests 07/12/19 20:55 Laboratory Tests 07/12/19 20:55 EKG EKG [] Radiology/Procedures Radiology/Procedures [] Course & Med Decision Making Course & Med Decision Making Pertinent Labs and Imaging studies reviewed. (See chart for details) This is a 74-year-old female patient presenting to the ED today with hypotension after taking 3 blood pressure medicines this evening. She was started on metoprolol yesterday which is 1 of the medications she took. Blood pressure on arrival to the ED is 164/71 HR 64. Patient's labs are negative. She was given IV fluids in the ED and monitored for 2 hours. Her blood pressures have remained above 140s over 60s. She is feeling better. She was discharged home. Requested her not to take metoprolol until she talks to Dr. Horan who prescribed it. F/u with PCP next week. Dragon Disclaimer Dragon Disclaimer This electronic medical record was generated, in whole or in part, using a voice recognition dictation system. Departure Departure Impression: Primary Impression: Hypotension Disposition: 01 HOME, SELF-CARE Condition: STABLE Referrals: BD BAILEY MD (PCP) follow up in 1 week Patient Instructions: Hypotension Additional Instructions: You were evaluated in the emergency room for hypotension. Your blood pressure has come up in the emergency room. Please change positions slowly. Do not take any blood pressure medicines tonight. Tomorrow do not take metoprolol but you can take the rest of your blood pressure medicines. Please contact the weatherization operations manager that prescribed metoprolol tomorrow morning and let him know your blood pressure has dropped quite low with the metoprolol. Come back to the ED at any point symptoms worsen. Problem Qualifiers Primary Impression: Hypotension Hypotension type: unspecified hypotension type Qualified Codes: I95.9 - Hypotension, unspecified DAVISBHARTIALEXIS EMPLOYER RELATIONS REPRESENTATIVE Jul 12, 2019 22:44
[2019-07-12 23:08] VITALS: BP 155/70
--- NOTE | 2019-07-12 23:40 | EKG ---
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
== END 2019-07-12 23:14 | disposition home or self-care (01) ==
LOC: ER 20:33
DX: I95.9 Hypotension, unspecified (principal); R42 Dizziness and giddiness; R53.83 Other fatigue; E78.00 Pure hypercholesterolemia, unspecified; E11.9 Type 2 diabetes mellitus without complications; I25.10 Atherosclerotic heart disease of native coronary artery without angina pectoris; Z86.73 Personal history of transient ischemic attack (TIA), and cerebral infarction without residual deficits; F41.9 Anxiety disorder, unspecified; E03.9 Hypothyroidism, unspecified; I10 Essential (primary) hypertension; I25.2 Old myocardial infarction; Z86.718 Personal history of other venous thrombosis and embolism; G89.29 Other chronic pain; Z95.0 Presence of cardiac pacemaker; Z95.5 Presence of coronary angioplasty implant and graft; Z87.891 Personal history of nicotine dependence; Z88.2 Allergy status to sulfonamides; Z88.8 Allergy status to other drugs, medicaments and biological substances
CPT/HCPCS: 36415; 71045; 80053; 80307; 81001; 82553; 83735; 83880; 84443; 84484; 85025; 93005; 96360; 99285; J7030